=== PATIENT | male | born 1945 | race Caucasian/White ===

== ENCOUNTER 2016-04-20 20:54 | Emergency (ER) | payer OTHER ==
[2016-04-20 21:00] VITALS: BP 207/93; PULSE 65; RESP 20; TEMP 97.2
--- NOTE | 2016-04-20 21:14 | ED ---
Chest Pain HPI - General Chief Complaint: Chest Pain Stated Complaint: Chest Pain/Pt history Time Seen by Provider: 04/20/16 21:00 Source: patient Mode of arrival: ambulatory Limitations: no limitations - History of Present Illness Initial Comments: This is a 71-year-old male with a history of CAD and multiple stents who presents emergency department for burning chest pain. He states it started around 7:30 this evening. He states that typically when he has hiatal hernia pain he is able to push on his stomach and will go away however it did not this time. He decided to take a nitro tablet and it relieved his discomfort. He has no current chest pain. He states that he was concerned because he has a history of NE in the past and this felt similar. He denies any associated shortness of breath, lightheadedness, nausea or vomiting. He states he feels fine now. He does admit to lower chrie swelling however this is chronic for him. No history DVT. No other complaints. - Related Data Home Medications Medication Instructions Recorded Confirmed Aspirin 81 mg PO DAILY 07/03/13 04/20/16 FLUoxetine HCL [PROzac] 20 mg PO DAILY 07/03/13 04/20/16 Labetalol HCl [Trandate] 600 mg PO BID 07/03/13 04/20/16 Ranolazine [Ranexa] 1,000 mg PO BID 07/03/13 04/20/16 Losartan [Cozaar] 100 mg PO HS 12/25/13 04/20/16 QUEtiapine [SEROquel] 25 mg PO HS 12/25/13 04/20/16 Terazosin [Hytrin] 8 mg PO HS 12/25/13 04/20/16 Atorvastatin [Lipitor] 20 mg PO HS 03/11/15 04/20/16 Isosorbide Mononitrate ER [Imdur] 60 mg PO DAILY 03/11/15 04/20/16 Bumetanide [BUMEX] 2 mg PO DAILY 04/20/16 04/20/16 Rivaroxaban [Xarelto] 15 mg PO BID 04/20/16 04/20/16 Previous Rx's Medication Instructions Recorded LORazepam [Ativan] 1 mg PO BID #12 tab 02/12/16 rOPINIRole HCL [Requip] 0.5 mg PO HS #10 tablet 02/12/16 Allergies Allergy/AdvReac Type Severity Reaction Status Date / Time No Known Allergies Allergy Verified 04/20/16 21:51 Review of Systems ROS Statement: Those systems with pertinent positive or pertinent negative responses have been documented in the HPI. ROS Other: All systems not noted in ROS Statement are negative. EKG Findings - EKG Comments: EKG Findings:: EKG showing normal sinus rhythm with a rate of 61, first degree AV block. No ST segment changes or T-wave inversions. QTC is 471. Other intervals are normal. No ectopy. Past Medical History Past Medical History: Atrial Fibrillation, Coronary Artery Disease (CAD), Heart Failure, Hyperlipidemia, Hypertension, Myocardial Infarction ([place]), Osteoarthritis (OA) Additional Past Medical History / Comment(s): ? 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 Last Myocardial Infarction Date:: 2009 History of Any Multi-Drug Resistant Organisms: None Reported Past Surgical History: Heart Catheterization With Stent, Tonsillectomy Additional Past Surgical History / Comment(s): [id number] stents, rt hand sx to repair svered lig/tendons Past Anesthesia/Blood Transfusion Reactions: No Reported Reaction Additional Past Anesthesia/Blood Transfusion Reaction / Comment(s): clausterphobia Date of Last Stent Placement:: 2009 Past Psychological History: Depression Additional Psychological History / Comment(s): PT 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 CURRENTLY ON DISABILTY D/T HIS BACK Smoking Status: Never smoker Past Alcohol Use History: None Reported Past Drug Use History: None Reported - Past Family History Mother Family Medical History: Cancer Additional Family Medical History / Comment(s): breast cancer, heart problems was on warfarin(pt stated she bled out) Father Family Medical History: Coronary Artery Disease (CAD), Myocardial Infarction ([place] ) General Exam - General Exam Comments Initial Comments: Constitutional: Awake alert Appears comfortable Head: Normocephalic atraumatic Eyes: no conjunctival injection No scleral icterus EOMI Neck: No JVD Supple Heart: Regular rate rhythm normal S1-S2 no murmurs Lungs: Clear to auscultation bilaterally No wheezing No rales Abdomen: Soft nondistended nontender Extremities: 2+ edema in bilateral lower extremities DP pulses intact Radial pulses intact Neuro: A&Ox3 No focal neurologic deficits Psych: Appropriate mood and affect Limitations: no limitations Course Vital Signs 04/20/16 20:55 Temperature 97.2 F L Pulse Rate 65 Respiratory 20 Rate Blood Pressure 207/93 O2 Sat by Pulse 98 Oximetry Chest Pain MDM - MDM This is a 8-year-old male who presents emergency department for chest burning that was relieved with nitro. He had no chest pain while in the emergency department. EKG was unremarkable and troponin was negative. The patient stated that he felt completely back to normal. I told the patient that I would recommend that he stay in the hospital for further monitoring and testing however he stated that he would rather go back home. He states he is no longer worried and feels that this was actually his acid reflux and hiatal hernia. He stated that the last time he had a heart attack he had more significant burning and radiation down his left arm which she did not have this time. I told the patient denied could not effectively rule out CAD without further doing testing and possible stress testing however he stated that he wanted to go home. I told that there is risk involved in going home including worsening heart function in if this were in fact signs of heart attack. He stated that he understood the risks and were able to verbalize them back to me. He was of sound mind and sober mind and was able to make his own decisions. 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 Disposition Clinical Impression: Chest pain Disposition: Left Against Medical Advice Condition: Stable Instructions: Chest Pain (ED) Referrals: Ralph Joyner MD [Primary Care Provider] - 1-2 days
[2016-04-20 21:32] LABS: Basophils # (A) 0.1 k/uL (0-0.2); Basophils % (A) 1 %; CH 33.7; CHCM 34.5; Eosinophils # (A) 0.5 k/uL (0-0.7); Eosinophils % (A) 6 %; HCT 35.4 % (39.0-53.0); HDW 2.49; HGB 12.1 gm/dL (13.0-17.5); Luc # (Auto) 0.24; Luc % (Auto) 3; Lymphocytes % (A) 13 %; MCH 33.6 pg (25.0-35.0); MCHC 34.2 g/dL (31.0-37.0); MCV 98.2 fL (80.0-100.0); Monocytes # (A) 0.6 k/uL (0-1.0); Monocytes % (A) 7 %; Neutrophils # (A) 5.5 k/uL (1.3-7.7); Neutrophils % (A) 70 %; RBC 3.61 m/uL (4.30-5.90); RDW 12.9 % (11.5-15.5); WBC (Perox) 8.37
--- NOTE | 2016-04-20 21:34 | XR ---
EXAMINATION TYPE: XR chest 2V DATE OF EXAM: 04/20/2016 9:31 PM HISTORY: Shortness of breath. COMPARISON: None. TECHNIQUE: Single view of the chest is submitted. FINDINGS: Demonstrated are scattered senescent parenchymal change. There is no evidence for focal infiltrate. The heart is enlarged. There is pulmonary venous congestion without overt failure. Hilar and mediastinal structures are within normal limits. Degenerative changes are seen of the dorsal spine. IMPRESSION: 1. The heart is enlarged. There is pulmonary venous congestion without overt failure.
[2016-04-20 21:43] LABS: Calcium 9.2 mg/dL (8.4-10.2); Magnesium 2.2 mg/dL (1.6-2.3); Potassium 4.6 mmol/L (3.5-5.1); Total Bilirubin 0.7 mg/dL (0.2-1.3); Total Protein 7.6 g/dL (6.3-8.2)
[2016-04-20 21:46] LABS: INR 1.2 (<1.1); Prothrombin Time 12.1 sec (9.0-12.0)
[2016-04-20 21:49] LABS: Creatine Kinase 180 U/L (55-170)
[2016-04-20 21:50] LABS: Partial Thromboplastin Time 19.2 sec (22.0-30.0)
[2016-04-20 22:02] LABS: Creatine Kinase MB 1.5 ng/mL (0.0-2.4); Troponin I <0.012 ng/mL (0.000-0.034)
== END 2016-04-20 22:26 | disposition left against medical advice (07) ==
LOC: EC 20:54
DX: R07.9 Chest pain, unspecified (principal); I48.91 Unspecified atrial fibrillation; I25.10 Atherosclerotic heart disease of native coronary artery without angina pectoris; I11.0 Hypertensive heart disease with heart failure; I50.9 Heart failure, unspecified; E78.5 Hyperlipidemia, unspecified; I25.2 Old myocardial infarction; M19.90 Unspecified osteoarthritis, unspecified site; F32.9 Major depressive disorder, single episode, unspecified; Z79.82 Long term (current) use of aspirin; Z79.899 Other long term (current) drug therapy
CPT/HCPCS: 36415; 71020; 80053; 82150; 82550; 82553; 83690; 83735; 84484; 85025; 85610; 85730; 93005; 99285

== ENCOUNTER 2016-12-01 13:30 | Emergency (ER) | payer OTHER ==
--- NOTE | 2016-12-01 14:11 | ED ---
General Adult HPI - General Chief complaint: Extremity Injury, Lower Stated complaint: Knee Pain Time Seen by Provider: 12/01/16 13:46 Source: patient, RN notes reviewed Mode of arrival: wheelchair Limitations: no limitations - History of Present Illness Initial comments: This is a 71-year-old male who presents to the emergency department with chief complaint of right knee pain. Patient states that he has been experiencing this pain for approximately 3 weeks. He denies any specific injury or trauma. He reports that the pain is at the medial aspect of his right knee. He states that over the course of time, the pain has been worsening. Currently rates pain as 10/10. He characterizes the pain as a constant throbbing. He states that he is usually able to ambulate with a walker but over the last couple of days pain with weight-bearing is severe. He reports that he is only able to get 2-3 hours of sleep per night. He states that he sees his doctor at the [facility] in [place] on December 07 and would like to have a prescription for pain medication until he is able to see his family doctor. Denies fever, chills, chest pain, shortness of breath, abdominal pain, nausea or vomiting, constipation or diarrhea, dysuria or hematuria, numbness or tingling, headache or vision changes. - Related Data Home Medications Medication Instructions Recorded Confirmed Aspirin 81 mg PO DAILY 07/03/13 12/01/16 FLUoxetine HCL [PROzac] 20 mg PO DAILY 07/03/13 12/01/16 Labetalol HCl [Trandate] 600 mg PO BID 07/03/13 12/01/16 Ranolazine [Ranexa] 1,000 mg PO BID 07/03/13 12/01/16 Losartan [Cozaar] 100 mg PO HS 12/25/13 12/01/16 QUEtiapine [SEROquel] 25 mg PO HS 12/25/13 12/01/16 Terazosin [Hytrin] 8 mg PO HS 12/25/13 12/01/16 Atorvastatin [Lipitor] 20 mg PO HS 03/11/15 12/01/16 Isosorbide Mononitrate ER [Imdur] 60 mg PO DAILY 03/11/15 12/01/16 Bumetanide [BUMEX] 2 mg PO DAILY 04/20/16 12/01/16 Rivaroxaban [Xarelto] 15 mg PO BID 04/20/16 12/01/16 Previous Rx's Medication Instructions Recorded LORazepam [Ativan] 1 mg PO BID #12 tab 02/12/16 rOPINIRole HCL [Requip] 0.5 mg PO HS #10 tablet 02/12/16 HYDROcodone/APAP 5-325MG [[place] 1 tab PO Q6HR PRN #24 tab 12/01/16 5-325] Allergies Allergy/AdvReac Type Severity Reaction Status Date / Time No Known Allergies Allergy Verified 12/01/16 13:45 Review of Systems ROS Statement: Those systems with pertinent positive or pertinent negative responses have been documented in the HPI. ROS Other: All systems not noted in ROS Statement are negative. Past Medical History Past Medical History: Atrial Fibrillation, Coronary Artery Disease (CAD), Heart Failure, Hyperlipidemia, Hypertension, Myocardial Infarction ([place]), Osteoarthritis ([place]) Additional Past Medical History / Comment(s): ? 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 Last Myocardial Infarction Date:: 2009 History of Any Multi-Drug Resistant Organisms: None Reported Past Surgical History: Heart Catheterization With Stent, Tonsillectomy Additional Past Surgical History / Comment(s): [id number] stents, rt hand sx to repair svered lig/tendons Past Anesthesia/Blood Transfusion Reactions: No Reported Reaction Additional Past Anesthesia/Blood Transfusion Reaction / Comment(s): clausterphobia Date of Last Stent Placement:: 2009 Past Psychological History: Depression Smoking Status: Never smoker Past Alcohol Use History: None Reported Past Drug Use History: None Reported - Past Family History Mother Family Medical History: Cancer Additional Family Medical History / Comment(s): breast cancer, heart problems was on warfarin(pt stated she bled out) Father Family Medical History: Coronary Artery Disease (CAD), Myocardial Infarction ([place] ) General Exam - General Exam Comments Initial Comments: General: Awake and alert, well-developed; in no apparent distress. HEENT: Head atraumatic, normocephalic. Pupils are equal, round and reactive to light. Extraocular movements intact. Neck: Supple. Normal ROM. Cardiovascular: Regular rate and rhythm. No murmurs, rubs or gallops. Chest symmetrical. Respiratory: Lungs clear to auscultation bilaterally. No wheezes, rales or rhonchi. Normal respiratory effort with no use of accessory muscles. Musculoskeletal: Right knee is tender at the medial aspect along the joint line. No redness, swelling or joint effusion is noted. Active and passive range of motion are intact. There is increasing pain with extension of the knee. Pedal pulses 2+ equal and palpable bilaterally. Skin: [place], warm and dry. Multiple healing erythematous sores on right lower extremity superior to ankle. Hyperpigemented and dry/scaling skin on bilateral lower extremities. Neurological: Alert and oriented x3. CN II-XII grossly intact. Speech is fluent and answers are appropriate. No focal neuro deficits. Psychiatric: Normal mood and affect. No overt signs of depression or anxiety noted. Limitations: no limitations Course Vital Signs 12/01/16 13:42 Temperature 98.2 F Pulse Rate 68 Respiratory 18 Rate Blood Pressure 168/74 O2 Sat by Pulse 96 Oximetry Medical Decision Making - Medical Decision Making X-ray of the right knee revealed: At least moderate patellofemoral compartmental osteoarthrosis. No acute osseous susceptibility seen. This case was discussed with attending physician, Dr. Weeks. He will be discharged home with a prescription for Lawrence to be taken for pain until he follows up with his doctor on December 07. Patient is in no acute distress at this time and he agrees with the plan. All questions were answered. - Radiology Data Radiology results: report reviewed Findings: There is at least moderate degenerative change at the patellofemoral compartment with marginal spurring and subchondral cystic change along the patellar side. No significant knee joint effusion seen. No acute fracture, subluxation, or dislocation. Disposition Clinical Impression: Arthritis of right knee, Acute knee pain Disposition: HOME SELF-CARE Condition: Good Instructions: Knee Pain (ED) Additional Instructions: Please take medications as prescribed. Please follow up with primary care provider within 1-2 days. Return to emergency department if symptoms should worsen or any concerns arise. Prescriptions: HYDROcodone/APAP 5-325MG [Lawrence 5-325] 1 tab PO Q6HR PRN #24 tab PRN Reason: Pain Referrals: None,Stated [REFERRING] - 1-2 days Time of Disposition: 15:03
--- NOTE | 2016-12-01 14:28 | XR ---
EXAMINATION TYPE: XR knee complete RT DATE OF EXAM: 12/01/2016 COMPARISON: NONE HISTORY: 71 year-old male right knee pain TECHNIQUE: 3 views FINDINGS: There is at least moderate degenerative change at the patellofemoral compartment with marginal spurri ng and subchondral cystic change along the patellar side. No significant knee joint effusion seen. No acute fracture, subluxation, or dislocation. IMPRESSION: At least moderate patellofemoral compartmental osteoarthrosis. No acute osseous susceptibility seen.
[2016-12-01 15:08] VITALS: BP 165/78; PULSE 63; RESP 20; TEMP 98
== END 2016-12-01 15:07 | disposition home or self-care (01) ==
LOC: EC 13:30
DX: M17.11 Unilateral primary osteoarthritis, right knee (principal); I48.91 Unspecified atrial fibrillation; I25.10 Atherosclerotic heart disease of native coronary artery without angina pectoris; I11.0 Hypertensive heart disease with heart failure; I50.9 Heart failure, unspecified; I25.2 Old myocardial infarction; E78.5 Hyperlipidemia, unspecified; F32.9 Major depressive disorder, single episode, unspecified; Z79.82 Long term (current) use of aspirin; Z79.899 Other long term (current) drug therapy
CPT/HCPCS: 99283

== ENCOUNTER 2016-12-25 16:53 | Inpatient (IN) | payer MEDICARE, OTHER ==
[2016-12-25] MEDS ORDERED: SODIUM CHLORIDE 0.9% 1,000 ML IV STA ×2 (17:00)
--- NOTE | 2016-12-25 17:05 | ED ---
General Adult HPI - General Chief complaint: Fall Stated complaint: weakness Time Seen by Provider: 12/25/16 16:53 Source: patient, EMS, RN notes reviewed Mode of arrival: EMS Limitations: no limitations - History of Present Illness Initial comments: this is a 71-year-old male with a history of multiple medical issues who came in by EMS today because he fell earlier today. He states he was walking in the bathroom. Progressively weaker his legs gave out he fell onto his buttock. He denies any head neck or back pain any buttock pain has chronic pain to his knees and ankles bilaterally nothing new here however. No fevers chills sweats headache loss of function to his upper or lower extremities. He is on blood thinners but has no head injury. He does state he has a history of gout. - Related Data Home Medications Medication Instructions Recorded Confirmed Aspirin 81 mg PO DAILY 07/03/13 12/25/16 FLUoxetine HCL [PROzac] 20 mg PO DAILY 07/03/13 12/25/16 Labetalol HCl [Trandate] 600 mg PO BID 07/03/13 12/25/16 Ranolazine [Ranexa] 500 mg PO BID 07/03/13 12/25/16 QUEtiapine [SEROquel] 25 mg PO HS 12/25/13 12/25/16 Terazosin [Hytrin] 8 mg PO HS 12/25/13 12/25/16 Isosorbide Mononitrate ER [Imdur] 60 mg PO DAILY 03/11/15 12/25/16 Bumetanide [BUMEX] 4 mg PO DAILY 04/20/16 12/25/16 Rivaroxaban [Xarelto] 15 mg PO HS 04/20/16 12/25/16 Atorvastatin [Lipitor] 20 mg PO DAILY 12/25/16 12/25/16 LORazepam [Ativan] 1.5 mg PO BID 12/25/16 12/25/16 Losartan Potassium [Cozaar] 100 mg PO DAILY 12/25/16 12/25/16 Nitroglycerin Sl Tabs [Nitrostat] 0.4 mg SUBLINGUAL Q5M PRN 12/25/16 12/25/16 oxyCODONE HCL [Roxicodone] 5 mg PO BID 12/25/16 12/25/16 rOPINIRole HCL [Requip] 0.5 mg PO BID 12/25/16 12/25/16 Allergies Allergy/AdvReac Type Severity Reaction Status Date / Time amlodipine AdvReac CONSTIPATIO Verified 12/25/16 17:33 N atenolol AdvReac MALE ED Verified 12/25/16 17:33 hydrochlorothiazide AdvReac RENAL Verified 12/25/16 17:33 IMPAIRMENT pravastatin AdvReac Rash/Hives Verified 12/25/16 17:33 Review of Systems ROS Statement: Those systems with pertinent positive or pertinent negative responses have been documented in the HPI. ROS Other: All systems not noted in ROS Statement are negative. Past Medical History Past Medical History: Atrial Fibrillation, Coronary Artery Disease (CAD), Heart Failure, Hyperlipidemia, Hypertension, Myocardial Infarction ([place]), Osteoarthritis (OA) Additional Past Medical History / Comment(s): ? 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 Last Myocardial Infarction Date:: 2009 History of Any Multi-Drug Resistant Organisms: None Reported Past Surgical History: Heart Catheterization With Stent, Tonsillectomy Additional Past Surgical History / Comment(s): [id number] stents, rt hand sx to repair svered lig/tendons Past Anesthesia/Blood Transfusion Reactions: No Reported Reaction Additional Past Anesthesia/Blood Transfusion Reaction / Comment(s): clausterphobia Date of Last Stent Placement:: 2009 Past Psychological History: Depression Smoking Status: Never smoker Past Alcohol Use History: None Reported Past Drug Use History: None Reported - Past Family History Mother Family Medical History: Cancer Additional Family Medical History / Comment(s): breast cancer, heart problems was on warfarin(pt stated she bled out) Father Family Medical History: Coronary Artery Disease (CAD), Myocardial Infarction ([place] ) General Exam - General Exam Comments Initial Comments: this is a well-developed well-nourished awake alert oriented 3 male he demonstrates a [place] Coma Scale of 15 Limitations: no limitations General appearance: alert, in no apparent distress Head exam: Present: atraumatic, normocephalic, normal inspection Eye exam: Present: normal appearance, PERRL, EOMI. Absent: scleral icterus, conjunctival injection, periorbital swelling ENT exam: Present: mucous membranes dry Neck exam: Present: normal inspection. Absent: tenderness, meningismus, lymphadenopathy Respiratory exam: Present: normal lung sounds bilaterally. Absent: respiratory distress, wheezes, rales, rhonchi, stridor Cardiovascular Exam: Present: regular rate, normal rhythm, normal heart sounds. Absent: systolic murmur, diastolic murmur, rubs, gallop, clicks GI/Abdominal exam: Present: soft, normal bowel sounds. Absent: distended, tenderness, guarding, rebound, rigid Extremities exam: Present: full ROM, normal capillary refill, other (some stasis dermatitis no his no obvious deformity no increased localized temperature no effusions noted to the ankles or knees. There is tenderness palpation of the right first MTP also there is an abrasion that is healing with some localized increased temperature to the right anterior leg..). Absent: tenderness, pedal edema, joint swelling, calf tenderness Back exam: Present: normal inspection Neurological exam: Present: alert, oriented X3, CN II-XII intact Psychiatric exam: Present: normal affect, normal mood Skin exam: Present: warm, dry, intact, normal color. Absent: rash Course Vital Signs 12/25/16 12/25/16 12/25/16 16:55 18:01 18:33 Temperature 97.5 F L Pulse Rate 59 L 65 71 Respiratory 18 17 Rate Blood Pressure 144/62 158/68 163/72 O2 Sat by Pulse 95 95 94 L Oximetry EKG Findings - EKG Results: EKG: interpreted by SLAVA, sinus rhythm (Sinus rhythm first-degree AV block rate is 60. Interval to 92 QRS 94 QT since QTC of 484/[address] configuration.) Medical Decision Making - Medical Decision Making I did a long discussion with the patient family regarding findings patient is unable to ambulate. He does have some evidence of exacerbation of gout as well as cellulitis of the right lower extremity is chronic renal insufficiency with some evidence of dehydration. - Lab Data Result diagrams: 12/25/16 17:14 12/25/16 17:14 Lab Results 12/25/16 12/25/16 12/25/16 Range/Units 17:14 17:14 17:14 WBC 11.3 H (3.8-10.6) k/uL RBC 3.31 L (4.30-5.90) m/uL Hgb 10.6 L (13.0-17.5) gm/dL Hct 31.8 L (39.0-53.0) % MCV 95.9 (80.0-100.0) fL MCH 32.1 (25.0-35.0) pg MCHC 33.5 (31.0-37.0) g/dL RDW 12.7 (11.5-15.5) % Plt Count 319 (150-450) k/uL Neutrophils % 79 % Lymphocytes % 9 % Monocytes % 9 % Eosinophils % 1 % Basophils % 0 % Neutrophils # 8.9 H (1.3-7.7) k/uL Lymphocytes # 1.0 (1.0-4.8) k/uL Monocytes # 1.1 H (0-1.0) k/uL Eosinophils # 0.1 (0-0.7) k/uL Basophils # 0.0 (0-0.2) k/uL PT 14.8 H (9.0-12.0) sec INR 1.5 H (<1.2) APTT 29.3 (22.0-30.0) sec Sodium (137-145) mmol/L Potassium (3.5-5.1) mmol/L Chloride (98-107) mmol/L Carbon Dioxide (22-30) mmol/L Anion Gap mmol/L BUN (9-20) mg/dL Creatinine (0.66-1.25) mg/dL Est GFR (MDRD) Af Amer (>60 ml/min/1.73 sqM) Est GFR (MDRD) Non-Af (>60 ml/min/1.73 sqM) Glucose (74-99) mg/dL Uric Acid (3.5-8.5) mg/dL Calcium (8.4-10.2) mg/dL Magnesium (1.6-2.3) mg/dL Total Bilirubin (0.2-1.3) mg/dL AST (17-59) U/L ALT (21-72) U/L Alkaline Phosphatase (38-126) U/L Total Creatine Kinase 82 (55-170) U/L CK-MB (CK-2) 0.3 (0.0-2.4) ng/mL CK-MB (CK-2) Rel Index 0.4 Total Protein (6.3-8.2) g/dL Albumin (3.5-5.0) g/dL Urine Color Urine Appearance (Clear) Urine pH (5.0-8.0) Ur Specific [place] (1.001-1.035) Urine Protein (Negative) Urine Glucose (UA) (Negative) Urine Ketones (Negative) Urine Blood (Negative) Urine Nitrite (Negative) Urine Bilirubin (Negative) Urine Urobilinogen (<2.0) mg/dL Ur Leukocyte Esterase (Negative) 12/25/16 12/25/16 Range/Units 17:14 17:30 WBC (3.8-10.6) k/uL RBC (4.30-5.90) m/uL Hgb (13.0-17.5) gm/dL Hct (39.0-53.0) % MCV (80.0-100.0) fL MCH (25.0-35.0) pg MCHC (31.0-37.0) g/dL RDW (11.5-15.5) % Plt Count (150-450) k/uL Neutrophils % % Lymphocytes % % Monocytes % % Eosinophils % % Basophils % % Neutrophils # (1.3-7.7) k/uL Lymphocytes # (1.0-4.8) k/uL Monocytes # (0-1.0) k/uL Eosinophils # (0-0.7) k/uL Basophils # (0-0.2) k/uL PT (9.0-12.0) sec INR (<1.2) APTT (22.0-30.0) sec Sodium 138 (137-145) mmol/L Potassium 4.2 (3.5-5.1) mmol/L Chloride 99 (98-107) mmol/L Carbon Dioxide 27 (22-30) mmol/L Anion Gap 12 mmol/L BUN 50 H (9-20) mg/dL Creatinine 2.89 H (0.66-1.25) mg/dL Est GFR (MDRD) Af Amer 26 (>60 ml/min/1.73 sqM) Est GFR (MDRD) Non-Af 22 (>60 ml/min/1.73 sqM) Glucose 119 H (74-99) mg/dL Uric Acid 11.7 H (3.5-8.5) mg/dL Calcium 9.3 (8.4-10.2) mg/dL Magnesium 2.4 H (1.6-2.3) mg/dL Total Bilirubin 1.1 (0.2-1.3) mg/dL AST 15 L (17-59) U/L ALT 19 L (21-72) U/L Alkaline Phosphatase 93 (38-126) U/L Total Creatine Kinase (55-170) U/L CK-MB (CK-2) (0.0-2.4) ng/mL CK-MB (CK-2) Rel Index Total Protein 6.9 (6.3-8.2) g/dL Albumin 3.9 (3.5-5.0) g/dL Urine Color Yellow Urine Appearance Clear (Clear) Urine pH 5.5 (5.0-8.0) Ur Specific [place] 1.012 (1.001-1.035) Urine Protein Trace H (Negative) Urine Glucose (UA) Negative (Negative) Urine Ketones Negative (Negative) Urine Blood Negative (Negative) Urine Nitrite Negative (Negative) Urine Bilirubin Negative (Negative) Urine Urobilinogen <2.0 (<2.0) mg/dL Ur Leukocyte Esterase Negative (Negative) - Radiology Data Radiology results: report reviewed (I did review the imaging and reports no acute findings), image reviewed Disposition Clinical Impression: Fall, Cellulitis of right lower extremity, Gout attack, Chronic renal insufficiency, Failure to thrive Disposition: ADMITTED IP TO THIS [facility] Condition: Stable Referrals: Jerod Braun MD [Primary Care Provider] - 1-2 days
[2016-12-25 17:22] LABS: Basophils % (A) 0 %; CH 32.8; CHCM 34.3; Eosinophils # (A) 0.1 k/uL (0-0.7); Eosinophils % (A) 1 %; HCT 31.8 % (39.0-53.0); HDW 2.42; HGB 10.6 gm/dL (13.0-17.5); Luc # (Auto) 0.19; Luc % (Auto) 2; Lymphocytes % (A) 9 %; MCH 32.1 pg (25.0-35.0); MCHC 33.5 g/dL (31.0-37.0); MCV 95.9 fL (80.0-100.0); Mean Platelet Volume 7.1; Monocytes # (A) 1.1 k/uL (0-1.0); Monocytes % (A) 9 %; Neutrophils # (A) 8.9 k/uL (1.3-7.7); Neutrophils % (A) 79 %; RBC 3.31 m/uL (4.30-5.90); RDW 12.7 % (11.5-15.5); WBC 11.3 k/uL (3.8-10.6)
[2016-12-25 17:31] LABS: INR 1.5 (<1.2); Partial Thromboplastin Time 29.3 sec (22.0-30.0); Prothrombin Time 14.8 sec (9.0-12.0)
[2016-12-25 17:52] LABS: Creatine Kinase MB 0.3 ng/mL (0.0-2.4)
[2016-12-25 17:55] LABS: Appearance,Urine Clear (Clear); Bilirubin,Urine Negative (Negative); Glucose,Urine (UA) Negative (Negative); Ketones,Urine Negative (Negative); Leukocyte Esterase,Urine Negative (Negative); Nitrite,Urine Negative (Negative); PH, Urine 5.5 (5.0-8.0); Protein,Urine Trace (Negative); Specific Gravity,Urine 1.012 (1.001-1.035); UA Billing (MACRO vs. MICRO) CHEM; Urobilinogen,Urine <2.0 mg/dL (<2.0)
[2016-12-25 17:56] LABS: Calcium 9.3 mg/dL (8.4-10.2); Magnesium 2.4 mg/dL (1.6-2.3); Potassium 4.2 mmol/L (3.5-5.1); Total Bilirubin 1.1 mg/dL (0.2-1.3); Total Protein 6.9 g/dL (6.3-8.2); Uric Acid 11.7 mg/dL (3.5-8.5)
--- NOTE | 2016-12-25 18:02 | XR ---
EXAMINATION TYPE: XR chest 2V DATE OF EXAM: 12/25/2016 COMPARISON: 04/20/2016 HISTORY: Leg swelling TECHNIQUE: Frontal and lateral views of the chest are obtained. FINDINGS: There is no heart failure nor confluent pneumonic infiltrate. Costophrenic angles are alejandra r. Bony thorax appears intact. Heart appears enlarged. There is coarsening of interstitial markings. IMPRESSION: Cardiomegaly. Mild pulmonary fibrotic changes. No acute lung disease. No change.
[2016-12-25] MEDS ORDERED: MAG HYDROX/AL HYDROX/SIMETH 30 ML CUP PO ONE (18:33)
[2016-12-25] MEDS ORDERED: NALOXONE 0.4 MG/ML 1 ML VIAL IV PRN (19:20)
[2016-12-25] MEDS ORDERED: IBUPROFEN 400 MG TAB PO PRN (19:20)
[2016-12-25] MEDS ORDERED: PIPERACILLIN-TAZOBACTAM 3.375 GM in DEXTROSE/WATER 1 50ML.BAG IVPB STA (19:24)
[2016-12-25] MEDS ORDERED: TERAZOSIN 1 MG CAP PO SCH (21:00)
[2016-12-25] MEDS: MORPHINE SULFATE 10 MG/ML SYRINGE IVP PRN (21:26)
[2016-12-25] MEDS: RIVAROXABAN 15 MG TAB PO SCH (21:28)
[2016-12-25] MEDS: LABETALOL 200 MG TAB PO SCH (21:28)
[2016-12-25] MEDS: DOXAZOSIN 4 MG TAB PO SCH (21:28)
[2016-12-25] MEDS: RANOLAZINE 500 MG TAB.ER.12H PO SCH (21:28)
[2016-12-25] MEDS: QUEtiapine 25 MG TAB PO SCH (21:28)
[2016-12-25] MEDS: LORazepam 1 MG TAB PO SCH (22:58)
[2016-12-26] MEDS: PIPERACILLIN-TAZOBACTAM 3.375 GM in DEXTROSE/WATER 1 50ML.BAG IVPB SCH ×5 (04:12→23:26)
[2016-12-26] MEDS: MORPHINE SULFATE 10 MG/ML SYRINGE IVP PRN ×2 (06:13→12:40)
[2016-12-26] MEDS: ASPIRIN 81 MG PO SCH (08:57)
[2016-12-26] MEDS: FLUoxetine HCL 20 MG CAP PO SCH (08:57)
[2016-12-26] MEDS: ISOSORBIDE MONONITRATE ER 60 MG TAB.ER.24H PO SCH (08:57)
[2016-12-26] MEDS: BUMETANIDE 1 MG TAB PO SCH (08:57)
[2016-12-26] MEDS: ATORVASTATIN 20 MG TAB PO SCH (08:57)
[2016-12-26] MEDS: LABETALOL 200 MG TAB PO SCH ×2 (08:58→22:02)
[2016-12-26] MEDS: LOSARTAN 50 MG TAB PO SCH (08:58)
[2016-12-26] MEDS: LORazepam 1 MG TAB PO SCH ×2 (08:58→22:01)
[2016-12-26] MEDS: RANOLAZINE 500 MG TAB.ER.12H PO SCH ×2 (08:59→21:56)
--- NOTE | 2016-12-26 18:55 | P.HPIM ---
History of Present Illness H&P Date: 12/26/16 Chief Complaint: Lower extremity pain and weakness This is a 71-year-old morbidly obese gentleman who presented to emergency room with chief complaint of bilateral knee pain right greater than left patient status complaints have been going on for the past 3 weeks and progressively getting worse patient does not recall any trauma or fall preceding his pain patient stated progressively got weaker with an attain same times and and ultimately since sustaining a fall landing on his buttocks and the denied hitting his head or neck he did not have any fevers or chills pain is rated 10 out of 10 intensity characterized as consistent throbbing radiating up his thighs extremity tender to the touch prior to interview patient had received IV pain medication and will seem to be lethargic and drowsy during encounter. Patient stated that he does have a history of gout in which usually affects his toes on bilateral but never his knees patient does have a history of chronic disease does see a creative producer at the [facility] stated that his baseline renal function was told to be 1.75 he has not followed up with his creative producer for quite some time to the ER she had temperature 97.5 pulse 50, respiration 18 blood pressure 144/62 O2 sats 95% on room air EKG done showed sinus rhythm with first-degree AV block nonspecific ST changes patient was admitted to the [facility] surge unit for ongoing workup Review of Systems Constitutional: Reports as per HPI, Reports chronic pain, Reports fatigue, Reports weakness, Reports weight gain Eyes: denies blurred vision, denies pain Ears, nose, mouth and throat: Denies headache, Denies sore throat Cardiovascular: Reports decreased exercise tolerance, Reports edema, Reports high blood pressure, Denies chest pain, Denies dyspnea on exertion, Denies lightheadedness, Denies palpitations, Denies paroxysmal nocturnal dyspnea Respiratory: Reports as per HPI, Reports sleep apnea, Denies cough with sputum, Denies hemoptysis, Denies home oxygen, Denies pain, Denies pain on inspiration, Denies pleurisy, Denies respiratory infections Gastrointestinal: Denies abdominal pain, Denies diarrhea, Denies nausea, Denies vomiting Musculoskeletal: Reports frequent falls, Reports gait dysfunction, Reports leg numbness/tingling, Reports muscle weakness, Reports redness of joints, Reports shooting leg pain Musculoskeletal: bilateral: knee pain, knee stiffness, knee swelling, absent: ankle pain, ankle stiffness, hip pain, hip stiffness, hip swelling Integumentary: Denies pruritus, Denies rash Neurological: Denies numbness, Denies weakness Past Medical History Past Medical History: Atrial Fibrillation, Coronary Artery Disease (CAD), Heart Failure, Hyperlipidemia, Hypertension, Myocardial Infarction ([place]) Additional Past Medical History / Comment(s): ? 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 gout in past. 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 CURRENTLY ON DISABILTY D/T HIS BACK Smoking Status: Never smoker Past Alcohol Use History: None Reported Past Drug Use History: None Reported - Past Family History Mother Family Medical History: Cancer Additional Family Medical History / Comment(s): breast cancer, heart problems was on warfarin(pt stated she bled out) Father Family Medical History: Coronary Artery Disease (CAD), Myocardial Infarction ([place] ) Medications and Allergies Home Medications Medication Instructions Recorded Confirmed Type Aspirin 81 mg PO DAILY 07/03/13 12/25/16 History FLUoxetine HCL [PROzac] 20 mg PO DAILY 07/03/13 12/25/16 History Labetalol HCl [Trandate] 600 mg PO BID 07/03/13 12/25/16 History Ranolazine [Ranexa] 1,000 mg PO BID 07/03/13 12/25/16 History QUEtiapine [SEROquel] 25 mg PO HS 12/25/13 12/25/16 History Terazosin [Hytrin] 8 mg PO HS 12/25/13 12/25/16 History Isosorbide Mononitrate ER [Imdur] 60 mg PO DAILY 03/11/15 12/25/16 History Bumetanide [BUMEX] 4 mg PO DAILY 04/20/16 12/25/16 History Rivaroxaban [Xarelto] 15 mg PO HS 04/20/16 12/25/16 History Atorvastatin [Lipitor] 20 mg PO DAILY 12/25/16 12/25/16 History LORazepam [Ativan] 1 mg PO TID PRN 12/25/16 12/25/16 History Losartan Potassium [Cozaar] 100 mg PO DAILY 12/25/16 12/25/16 History Nitroglycerin Sl Tabs [Nitrostat] 0.4 mg SUBLINGUAL Q5M PRN 12/25/16 12/25/16 History Omeprazole 20 mg PO DAILY 12/25/16 12/25/16 History oxyCODONE HCL [Roxicodone] 5 mg PO BID PRN 12/25/16 12/25/16 History rOPINIRole HCL [Requip] 0.5 mg PO TID 12/25/16 12/25/16 History traZODone HCL 100 mg PO HS PRN 12/25/16 12/25/16 History Allergies Allergy/AdvReac Type Severity Reaction Status Date / Time amlodipine AdvReac CONSTIPATIO Verified 12/25/16 17:33 N atenolol AdvReac MALE ED Verified 12/25/16 17:33 hydrochlorothiazide AdvReac RENAL Verified 12/25/16 17:33 IMPAIRMENT pravastatin AdvReac Rash/Hives Verified 12/25/16 17:33 Physical Exam Vitals: Vital Signs Temp Pulse Pulse Resp BP BP Pulse Ox 12/26/16 15:00 98.2 F 72 16 110/52 93 L 12/26/16 07:59 100.6 F H 62 20 147/59 91 L 12/26/16 04:00 16 12/26/16 00:00 16 12/25/16 23:53 98.2 F 58 L 16 182/78 92 L 12/25/16 20:32 19 182/72 93 L 12/25/16 20:30 18 12/25/16 20:03 60 16 164/69 94 L Intake and Output 12/26/16 12/26/16 12/26/16 06:59 14:59 22:59 Intake Total 590 Output Total 700 480 Balance -110 -480 Intake: Oral 590 Output: Urine 700 480 Other: Voiding Method Urinal Urinal Urinal # Voids 1 Weight 132 kg General appearance: alert and awake however drowsy secondary to pain medication , in no apparent distress nontoxic-appearing Head exam: Present: atraumatic, normocephalic, normal inspection Eye exam: , PERRL, EOMI. Absent: scleral icterus, conjunctival injection, periorbital swelling ENT exam:: mucous membranes dry free of any lesions Neck exam: Patient has bilateral supraclavicular fullness. Absent: tenderness, meningismus, lymphadenopathy Respiratory exam: Present: normal lung sounds bilaterally. Absent: respiratory distress, wheezes, rales, rhonchi, stridor Cardiovascular Exam: Present: regular rate, normal rhythm, normal heart sounds. Absent: systolic murmur, diastolic murmur, rubs, gallop, clicks GI/Abdominal exam: Present: soft, normal bowel sounds. Absent: distended, tenderness, guarding, rebound, rigid Extremities exam: Present: full ROM, normal capillary refill, stasis dermatitis by lower lower extremity no his no obvious deformity no increased localized temperature no effusions noted to the ankles or knees is extreme tenderness to bilateral knees in the medial aspect flexion of the knee reproduces significant pain. There is tenderness palpation of the right first MTP also there is an abrasion that is healing with some localized increased temperature to the right anterior leg. Back exam: Present: normal inspection Neurological exam: Present: alert, oriented X3, CN II-XII intact Psychiatric exam: Present: normal affect, normal mood Skin exam: Present: warm, dry, intact, normal color. Absent: rash Results CBC & Chem 7: 12/25/16 17:14 12/25/16 17:14 Chest x-ray: pending, report reviewed Thrombosis Risk Factor Assmnt - Choose All That Apply Any of the Below Risk Factors Present?: Yes Each Factor Represents 1 point: Acute OR, Heart failure (<1month), Obesity (BMI >25) Other Risk Factors: Yes Each Risk Factor Represents 2 Points: Age 61-74 years Other congenital or acquired thrombophilia - If yes, enter type in comment: No Thrombosis Risk Factor Assessment Total Risk Factor Score: 5 Thrombosis Risk Factor Assessment Level: High Risk Assessment and Plan Assessment: #1 severe bilateral lower extremity pain with weakness, patient does have a history of gout his uric acid was noted to be elevated on labs could very well be an acute gouty attack however is relatively in bilateral knees on examination there is effusion that was noted we'll consult orthopedic surgery for possible knee aspiration both therapeutic and diagnostic purposes patient is noted to be on Xarelto will obtain bilateral knee x-rays patient will also need physical and occupational therapy consults for eval #2 uricacidemia patient is noted to be on allopurinol is to continue he does have underlying A And CK D we'll consult nephrology to help assist in medication management. We'll need to sit with NSAIDs at this time possibly use a course of steroids . #3 history of fibrillation with a chest greater than 2 patient is not an anticoagulation next line #4 Chronic pain. #5 hypertension #6 acute kidney injury on chronic kidney disease unknown GFR patient had a creatinine of 1.77 back on February 2015 patient's creatinine on this admission is 2.89 this is likely due to combination of progressive renal disease along with dehydration nephrology to be consulted For the above noted conditions please resume home medications hold Bumex due to underlying kidney injury Morbid obesity patient counseled on lifestyle[ modifications and proper eating habits Further recommendations follow-up in his overall progress. Disposition anticipate discharge in the next 24-48 hours Time with Patient: Greater than 30
[2016-12-26] MEDS ORDERED: BISACODYL 10 MG SUPP RECTAL SCH (19:30)
[2016-12-26] MEDS ORDERED: BISACODYL 10 MG SUPP RECTAL ONE (19:54)
[2016-12-26] MEDS ORDERED: FUROSEMIDE 10 MG/ML 4 ML VIAL IV STA (20:04)
[2016-12-26] MEDS: PANTOPRAZOLE 40 MG/10 ML VIAL IVP SCH (20:41)
[2016-12-26] MEDS: QUEtiapine 25 MG TAB PO SCH (21:57)
[2016-12-26] MEDS: RIVAROXABAN 15 MG TAB PO SCH (21:57)
[2016-12-26] MEDS: DOXAZOSIN 4 MG TAB PO SCH (22:07)
[2016-12-27] MEDS: MORPHINE SULFATE 10 MG/ML SYRINGE IVP PRN ×5 (04:13→14:00)
[2016-12-27] MEDS: NITROGLYCERIN SL TABS 0.4 MG TAB SUBLINGUAL PRN ×2 (06:15→06:26)
[2016-12-27 06:55] LABS: CH 32.7; CHCM 33.3; HCT 30.3 % (39.0-53.0); HGB 9.7 gm/dL (13.0-17.5); MCH 31.6 pg (25.0-35.0); MCV 98.6 fL (80.0-100.0); Mean Platelet Volume 7.3; RBC 3.07 m/uL (4.30-5.90); RDW 12.7 % (11.5-15.5); WBC 10.1 k/uL (3.8-10.6)
[2016-12-27 07:23] LABS: Calcium 8.7 mg/dL (8.4-10.2); Magnesium 2.2 mg/dL (1.6-2.3); Phosphorus 4.1 mg/dL (2.5-4.5); Potassium 4.2 mmol/L (3.5-5.1); Total Bilirubin 1.9 mg/dL (0.2-1.3); Total Protein 6.1 g/dL (6.3-8.2)
[2016-12-27 07:34] LABS: Creatine Kinase MB 19.4 ng/mL (0.0-2.4); Troponin I 0.053 ng/mL (0.000-0.034)
[2016-12-27] MEDS: PIPERACILLIN-TAZOBACTAM 3.375 GM in DEXTROSE/WATER 1 50ML.BAG IVPB SCH ×3 (08:00→23:36)
--- NOTE | 2016-12-27 08:07 | XR ---
EXAMINATION TYPE: XR knee limited bilateral DATE OF EXAM: 12/26/2016 CLINICAL HISTORY: pain TECHNIQUE: Three views of the right knee are obtained. COMPARISON: 12/01/2016 FINDINGS: There is no acute fracture/dislocation. Patellofemoral joint space narrowing with changes of chondromalacia patella. Superior patellar spurring. Mild joint space narrowing medial tibiofemoral joint space. Small to moderate joint effusion seen. The overlying soft tissue appears unremarkable. IMPRESSION: There is no acute fracture or dislocation.ICD 10 NO FRACTURE, INITIAL EVALUATION EXAMINATION TYPE: XR knee limited bilateral DATE OF EXAM: 12/26/2016 CLINICAL HISTORY: pain TECHNIQUE: Three views of the left knee are obtained. COMPARISON: 12/01/2016 FINDINGS: There is no acute fracture/dislocation. Patellofemoral joint space narrowing with changes of chondromalacia patella. Superior patellar spurring. Erosive change superior patellar pole. Mild kymberly int space narrowing medial tibiofemoral joint space. Small to moderate joint effusion noted. The over lying soft tissue appears unremarkable. IMPRESSION: There is no acute fracture or dislocation ICD 10 NO FRACTURE, INITIAL EVALUATION
[2016-12-27 08:38] LABS: Erythrocyte Sedimentation Rate 116 mm/hr (0-15)
--- NOTE | 2016-12-27 09:11 | P.CNOR ---
History of Present Illness - HPI Consult date: 12/27/16 History of present illness: This is a 71-year-old male who is admitted for right lower extremity pain. Orthopedics consulted for surgical evaluation. Patient is seen and evaluated at bedside with Dr. Dioni Pereira. Patient states he has had chronic wounds to the right lower extremity since July. Patient states they have come and gone over the last couple of months. states the patient was prescribed outpatient antibiotics but the patient did not take these. Patient states he is feeling much better today. Patient denies any fever/chills, numbness, weakness or tingling. Review of Systems See HPI. Past Medical History Past Medical History: Atrial Fibrillation, Coronary Artery Disease (CAD), Heart Failure, Hyperlipidemia, Hypertension, [place]ocardial Infarction ([place]) Additional Past Medical History / Comment(s): ? 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 gout in past. 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 CURRENTLY ON DISABILTY D/T HIS BACK Smoking Status: Never smoker Past Alcohol Use History: None Reported Past Drug Use History: None Reported - Past Family History Mother Family Medical History: Cancer Additional Family Medical History / Comment(s): breast cancer, heart problems was on warfarin(pt stated she bled out) Father Family Medical History: Coronary Artery Disease (CAD), [place] Infarction ([place] ) Medications and Allergies Home Medications Medication Instructions Recorded Confirmed Type Aspirin 81 mg PO DAILY 07/03/13 12/25/16 History FLUoxetine HCL [PROzac] 20 mg PO DAILY 07/03/13 12/25/16 History Labetalol HCl [Trandate] 600 mg PO BID 07/03/13 12/25/16 History Ranolazine [Ranexa] 1,000 mg PO BID 07/03/13 12/25/16 History QUEtiapine [SEROquel] 25 mg PO HS 12/25/13 12/25/16 History Terazosin [Hytrin] 8 mg PO HS 12/25/13 12/25/16 History Isosorbide Mononitrate ER [Imdur] 60 mg PO DAILY 03/11/15 12/25/16 History Bumetanide [BUMEX] 4 mg PO DAILY 04/20/16 12/25/16 History Rivaroxaban [Xarelto] 15 mg PO HS 04/20/16 12/25/16 History Atorvastatin [Lipitor] 20 mg PO DAILY 12/25/16 12/25/16 History LORazepam [Ativan] 1 mg PO TID PRN 12/25/16 12/25/16 History Losartan Potassium [Cozaar] 100 mg PO DAILY 12/25/16 12/25/16 History Nitroglycerin Sl Tabs [Nitrostat] 0.4 mg SUBLINGUAL Q5M PRN 12/25/16 12/25/16 History Omeprazole 20 mg PO DAILY 12/25/16 12/25/16 History oxyCODONE HCL [Roxicodone] 5 mg PO BID PRN 12/25/16 12/25/16 History rOPINIRole HCL [Requip] 0.5 mg PO TID 12/25/16 12/25/16 History traZODone HCL 100 mg PO HS PRN 12/25/16 12/25/16 History Allergies Allergy/AdvReac Type Severity Reaction Status Date / Time amlodipine AdvReac CONSTIPATIO Verified 12/25/16 17:33 N atenolol AdvReac MALE ED Verified 12/25/16 17:33 hydrochlorothiazide AdvReac RENAL Verified 12/25/16 17:33 IMPAIRMENT pravastatin AdvReac Rash/Hives Verified 12/25/16 17:33 Physical Examination On exam of the right lower extremity there is evidence for healing wounds to the right lower leg. There is no significant swelling or effusion of the right knee. There is no significant surrounding erythema. Neurovascular status to the right lower extremity is intact. Results X-rays of bilateral knees are reviewed showing no fracture or dislocation. - Labs Labs: Abnormal Lab Results - Last 24 Hours (Table) 11/08/17 11/08/17 11/08/17 Range/Units 06:39 06:39 06:39 RBC 3.07 L (4.30-5.90) m/uL Hgb 9.7 L (13.0-17.5) gm/dL Hct 30.3 L (39.0-53.0) % ESR 116 H (0-15) mm/hr BUN 50 H (9-20) mg/dL Creatinine 3.07 H (0.66-1.25) mg/dL Glucose 108 H (74-99) mg/dL Total Bilirubin 1.9 H (0.2-1.3) mg/dL AST 86 H (17-59) U/L Total Creatine Kinase 2665 H (55-170) U/L CK-MB (CK-2) 19.4 H* (0.0-2.4) ng/mL Troponin I 0.053 H* (0.000-0.034) ng/mL Total Protein 6.1 L (6.3-8.2) g/dL Albumin 3.3 L (3.5-5.0) g/dL H & H 12/25/16 12/27/16 Range/Units 17:14 06:39 Hgb 10.6 L 9.7 L (13.0-17.5) gm/dL Hct 31.8 L 30.3 L (39.0-53.0) % Coagulation 12/25/16 Range/Units 17:14 INR 1.5 H (<1.2) Result Diagrams: 12/27/16 06:39 12/27/16 06:39 Assessment and Plan (1) Cellulitis of right lower extremity Current Visit: Yes Status: Acute Code(s): L03.115 - CELLULITIS OF RIGHT LOWER LIMB SNOMED Code(s): 679724182 Plan: #1. Continue antibiotics. #2. No surgical intervention planned at this time.
[2016-12-27 09:53] LABS: C Reactive Protein 193.7 mg/L (<10.0)
[2016-12-27] MEDS: PANTOPRAZOLE 40 MG/10 ML VIAL IVP SCH (10:38)
[2016-12-27] MEDS: ASPIRIN 81 MG PO SCH (10:38)
[2016-12-27] MEDS: LABETALOL 200 MG TAB PO SCH ×2 (10:39→20:56)
[2016-12-27] MEDS: RANOLAZINE 500 MG TAB.ER.12H PO SCH ×2 (10:41→20:53)
[2016-12-27] MEDS: ISOSORBIDE MONONITRATE ER 60 MG TAB.ER.24H PO SCH (10:41)
[2016-12-27] MEDS: FLUoxetine HCL 20 MG CAP PO SCH (10:41)
[2016-12-27] MEDS: ATORVASTATIN 20 MG TAB PO SCH (10:41)
[2016-12-27] MEDS: LORazepam 1 MG TAB PO SCH ×2 (10:47→20:51)
--- NOTE | 2016-12-27 12:22 | ECHOF ---
Referral Reason:shortness of breath MEASUREMENTS -------- HEIGHT: 175.3 cm WEIGHT: 131.5 kg BP: RVIDd: 2.7 cm (< 3.3) IVSd: 1.6 cm (0.6 - 1.1) LVIDd: 4.2 cm (3.9 - 5.3) LVPWd: 1.5 cm (0.6 - 1.1) IVSs: 1.5 cm LVIDs: 3.7 cm LVPWs: 1.2 cm LA Diam: 4.4 cm (2.7 - 3.8) Ao Diam: 3.5 cm (2.0 - 3.7) LA Diam: 4.2 cm (2.7 - 3.8) EPSS: 0.6 cm RAP: 5.00 mmHg RVSP: 28.45 mmHg MV EF SLOPE: 87.97 mm/s (70 - 150) MV EXCURSION: 1.85 cm (> 18.000) FINDINGS -------- Atrial fibrillation. Morbid Obesity The left ventricular size is normal. There is mild concentric left ventricular hypertrophy. Overa ll left ventricular systolic function is normal with, an EF between 55 - 60 %. The right ventricle is normal in size. The left atrium is mildly dilated. The right atrial size is normal. 1.5MG OF DEFINITY UTLIZED: 2 OR MORE WALL SEGMENTS NOT VISUALIZED. There is mild aortic valve sclerosis. Mild mitral annular calcification present. Mild mitral regurgitation is present. Mild tricuspid regurgitation present. There is no evidence of pulmonary hypertension. The right v entricular systolic pressure, as measured by Doppler, is 28.45mmHg. Trace/mild (physiologic) pulmonic regurgitation. The aortic root size is normal. Echo free space indicative of a pericardial fat pad. CONCLUSIONS -------- 1. Atrial fibrillation. 2. Morbid Obesity 3. There is mild concentric left ventricular hypertrophy. 4. Overall left ventricular systolic function is normal with, an EF between 55 - 60 %. 5. The left atrium is mildly dilated. 6. 1.5MG OF DEFINITY UTLIZED: 2 OR MORE WALL SEGMENTS NOT VISUALIZED. 7. There is mild aortic valve sclerosis. 8. Mild mitral annular calcification present. 9. Mild mitral regurgitation is present. 10. Mild tricuspid regurgitation present. 11. There is no evidence of pulmonary hypertension. 12. Trace/mild (physiologic) pulmonic regurgitation. 13. The aortic root size is normal. 14. Echo free space indicative of a pericardial fat pad. DIGITAL CONTENT COORDINATOR: Kristen Andrews RDCS
[2016-12-27] MEDS: BUMETANIDE 1 MG TAB PO SCH (12:47)
[2016-12-27] MEDS: LOSARTAN 50 MG TAB PO SCH (12:47)
[2016-12-27 13:21] LABS: Creatine Kinase MB 27.2 ng/mL (0.0-2.4)
[2016-12-27 13:22] LABS: Troponin I 0.057 ng/mL (0.000-0.034)
--- NOTE | 2016-12-27 13:38 | XR ---
EXAMINATION TYPE: XR chest 2V DATE OF EXAM: 12/27/2016 COMPARISON: 12/25/2016 HISTORY: Shortness of breath TECHNIQUE: Frontal and lateral views of the chest are obtained. FINDINGS: Scattered senescent parenchymal changes noted. Hyperinflation compatible with COPD. Stable fibrotic c hanges. No evidence for infiltrate. No evidence for atelectasis. Heart size is stable. Mediastinal structures are stable and grossly unremarkable. No evidence for hilar prominence. Degenerative changes dorsal spine. IMPRESSION: 1. No evidence for acute pulmonary disease.
--- NOTE | 2016-12-27 14:04 | P.CRDCN ---
History of Present Illness Consult date: 12/27/16 History of present illness: This is a 71-year-old male past medical history significant for coronary artery disease with prior stents at the [facility] in [place], paroxysmal atrial fibrillation on long-term anticoagulation, hyperlipidemia, hypertension, chronic kidney disease and heart failure per the patient. He has had all of his cardiac care at the [facility] in [place] and those records have been requested. We've asked to see this patient in consultation for an episode of chest pain early this morning and was found to be in atrial fibrillation at that time. EKG on admission was sinus mechanism. According to the patient he has been feeling generalized weakness over the past week or so with inability to carry out his activities of daily living at home and inability to even get up out of the chair on his own. He is being evaluated for chronic lower extremity gout and right lower extremity cellulitis. At the time of my exam he is seen sitting in bed in no acute distress with his at the bedside. He is currently in atrial fibrillation with controlled ventricular response on telemetry. He is also wearing oxygen via nasal cannula and unable to complete full sentences without stopping to take a breath. He also complains of increasing dyspnea on exertion and orthopnea. No PND. EKG reveals atrial fibrillation with controlled ventricular response. Blood pressure 140/63 with heart rate 88. Potassium 4.2, magnesium 2.2, BUN 50, Cr 3.07, Hgb 9.7, platelets 310, INR 1.5. Current cardiac medications include ranexa 1000 mg BID, xarelto 15 mg daily, losartan 100 mg daily, labetolol 600 mg BID, imdur 60 mg daily, bumex 4 mg daily , lipitor 20 mg daily and aspirin 81 mg daily. Losartan has been held per nephrology. Review of Systems CONSTITUTIONAL: Denies fever. Denies chills. EYES: Denies blurred vision. Denies vision changes. Denies eye pain. EARS, NOSE, MOUTH & THROAT: Denies headache. Denies sore throat. Denies ear pain. CARDIOVASCULAR: Complains of one episode of chest pain that has resolved. Complains of shortness of breath, exertional dyspnea and orthopnea. Denies PND. Denies palpitations. RESPIRATORY: Denies cough. GASTROINTESTINAL: Denies abdominal pain. Denies diarrhea. Denies constipation. Denies nausea. Denies vomitng. MUSCULOSKELETAL: Denies myalgias. INTEGUMENTARY: Denies pruitis. Denies rash. NEUROLOGIC: Denies numbness. Denies tingling. Complains of generalized weakness. PSYCHIATRIC: Denies anxiety. Denies depression. ENDOCRINE: Denies fatigue. Denies weight change. Denies polydipsia. Denies polyurina. GENITOURINARY: Denies burning, hematuria or urgency with micturation. HEMATOLOGIC: Denies history of anemia. Denies bleeding. Past Medical History Past Medical History: Atrial Fibrillation, Coronary Artery Disease (CAD), Heart Failure, Hyperlipidemia, Hypertension, Myocardial Infarction ([place]) Additional Past Medical History / Comment(s): ? 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 gout in past. 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 CURRENTLY ON DISABILTY D/T HIS BACK Smoking Status: Never smoker Past Alcohol Use History: None Reported Past Drug Use History: None Reported - Past Family History Mother Family Medical History: Cancer Additional Family Medical History / Comment(s): breast cancer, heart problems was on warfarin(pt stated she bled out) Father Family Medical History: Coronary Artery Disease (CAD), Myocardial Infarction ([place] ) Medications and Allergies Home Medications Medication Instructions Recorded Confirmed Type Aspirin 81 mg PO DAILY 07/03/13 12/25/16 History FLUoxetine HCL [PROzac] 20 mg PO DAILY 07/03/13 12/25/16 History Labetalol HCl [Trandate] 600 mg PO BID 07/03/13 12/25/16 History Ranolazine [Ranexa] 1,000 mg PO BID 07/03/13 12/25/16 History QUEtiapine [SEROquel] 25 mg PO HS 12/25/13 12/25/16 History Terazosin [Hytrin] 8 mg PO HS 12/25/13 12/25/16 History Isosorbide Mononitrate ER [Imdur] 60 mg PO DAILY 03/11/15 12/25/16 History Bumetanide [BUMEX] 4 mg PO DAILY 04/20/16 12/25/16 History Rivaroxaban [Xarelto] 15 mg PO HS 04/20/16 12/25/16 History Atorvastatin [Lipitor] 20 mg PO DAILY 12/25/16 12/25/16 History LORazepam [Ativan] 1 mg PO TID PRN 12/25/16 12/25/16 History Losartan Potassium [Cozaar] 100 mg PO DAILY 12/25/16 12/25/16 History Nitroglycerin Sl Tabs [Nitrostat] 0.4 mg SUBLINGUAL Q5M PRN 12/25/16 12/25/16 History Omeprazole 20 mg PO DAILY 12/25/16 12/25/16 History oxyCODONE HCL [Roxicodone] 5 mg PO BID PRN 12/25/16 12/25/16 History rOPINIRole HCL [Requip] 0.5 mg PO TID 12/25/16 12/25/16 History traZODone HCL 100 mg PO HS PRN 12/25/16 12/25/16 History Allergies Allergy/AdvReac Type Severity Reaction Status Date / Time amlodipine AdvReac CONSTIPATIO Verified 12/25/16 17:33 N atenolol AdvReac MALE ED Verified 12/25/16 17:33 hydrochlorothiazide AdvReac RENAL Verified 12/25/16 17:33 IMPAIRMENT pravastatin AdvReac Rash/Hives Verified 12/25/16 17:33 Physical Exam Vitals: Vital Signs Temp Pulse Pulse Resp BP Pulse Ox 12/27/16 07:00 99.2 F 88 20 140/63 93 L 12/27/16 06:35 93 22 123/59 91 L 12/27/16 06:33 20 93 L 12/27/16 06:28 88 20 128/59 88 L 12/27/16 06:10 98.4 F 63 18 144/64 86 L 12/26/16 20:40 97.9 F 60 16 123/60 94 L 12/26/16 20:04 98.1 F 61 20 134/63 91 L 12/26/16 15:00 98.2 F 72 16 110/52 93 L Intake and Output 12/26/16 12/27/16 12/27/16 22:59 06:59 14:59 Intake Total 50 Output Total 200 900 Balance -200 -850 Intake: IV 50 Piperacillin-Tazobactam 3 50 .375 gm In Dextrose/Water 1 50ml.bag @ 12.5 mls/hr IVPB Q8HR [facility] Rx#: [id number] Output: Urine 200 900 Other: Voiding Method Urinal # Voids 1 GENERAL: This is a 71-year-old male in no apparent distress at the time of my examination. Obese. HEENT: Head is atraumatic, normocephalic. Pupils are equal, round. Sclerae anicteric. Conjunctivae are clear. Mucous membranes of the mouth are moist. Neck is supple. There is jugular venous distention. No carotid bruit is heard. LUNGS: Faint expiratory wheeze no rales or rhonchi. No chest wall tenderness is noted on palpation or with deep breathing. HEART: Irregular rate and rhythm with systolic ejection murmur at the base, no rubs or gallops. S1 and S2 heard. ABDOMEN: Soft, nontender. Bowel sounds are heard. No organomegaly noted. EXTREMITIES: 1+ peripheral pulses with trace bilateral lower extremity edema and no calf tenderness noted. NEUROLOGIC: Patient is awake, alert and oriented x3. Results 12/27/16 06:39 12/27/16 06:39 Cardiac Enzymes 12/27/16 12/27/16 Range/Units 06:39 06:39 AST 86 H (17-59) U/L CK-MB (CK-2) 19.4 H* (0.0-2.4) ng/mL Troponin I 0.053 H* (0.000-0.034) ng/mL CBC 12/27/16 Range/Units 06:39 WBC 10.1 (3.8-10.6) k/uL RBC 3.07 L (4.30-5.90) m/uL Hgb 9.7 L (13.0-17.5) gm/dL Hct 30.3 L (39.0-53.0) % Plt Count 310 (150-450) k/uL Comprehensive Metabolic Panel 12/27/16 Range/Units 06:39 Sodium 138 (137-145) mmol/L Potassium 4.2 (3.5-5.1) mmol/L Chloride 101 (98-107) mmol/L Carbon Dioxide 26 (22-30) mmol/L BUN 50 H (9-20) mg/dL Creatinine 3.07 H (0.66-1.25) mg/dL Glucose 108 H (74-99) mg/dL Calcium 8.7 (8.4-10.2) mg/dL AST 86 H (17-59) U/L ALT 41 (21-72) U/L Alkaline Phosphatase 91 (38-126) U/L Total Protein 6.1 L (6.3-8.2) g/dL Albumin 3.3 L (3.5-5.0) g/dL Current Medications Generic Name Dose Route Start Last Admin Trade Name Freq PRN Reason Stop Dose Admin Aspirin 81 mg 12/26/16 09:00 12/26/16 08:57 Aspirin PO 81 mg DAILY KARINE Administration Atorvastatin Calcium 20 mg 12/26/16 09:00 12/26/16 08:57 Lipitor PO 20 mg DAILY KARINE Administration Doxazosin Mesylate 8 mg 12/25/16 21:00 12/26/16 22:07 Cardura PO 8 mg HS KARINE Administration Fluoxetine HCl 20 mg 12/26/16 09:00 12/26/16 08:57 Prozac PO 20 mg DAILY KARINE Administration Piperacillin/Tazobactam/ 50 mls @ 12.5 mls/hr 12/26/16 02:00 12/26/16 23:26 Dextrose 3.375 gm/ IV Solution IVPB 12.5 mls/hr Q8HR KARINE Administration Isosorbide Mononitrate 60 mg 12/26/16 09:00 12/26/16 08:57 Imdur PO 60 mg DAILY KARINE Administration Labetalol HCl 600 mg 12/25/16 21:00 12/26/16 22:02 Trandate PO 600 mg BID KARINE Administration Lorazepam 1.5 mg 12/25/16 21:00 12/26/16 22:01 Ativan PO 1.5 mg BID KARINE Administration Morphine Sulfate 2 mg 12/25/16 21:19 12/27/16 06:16 Morphine Sulfate (Inj) IVP 2 mg Q3H PRN Administration MODERATE TO SEVERE Pain Naloxone HCl 0.2 mg 12/25/16 19:20 Narcan IV Q2M PRN Opioid Reversal Nitroglycerin 0.4 mg 12/25/16 19:22 12/27/16 06:26 Nitrostat SUBLINGUAL 0.4 mg Q5M PRN Administration Chest Pain Oxycodone HCl 5 mg 12/25/16 21:00 12/26/16 21:58 Oxyir PO 5 mg BID KARINE Administration Pantoprazole Sodium 40 mg 12/26/16 20:15 12/26/16 20:41 Protonix IVP 40 mg DAILY KARINE Administration Quetiapine Fumarate 25 mg 12/25/16 21:00 12/26/16 21:57 Seroquel PO 25 mg HS KARINE Administration Ranolazine 500 mg 12/25/16 21:00 12/26/16 21:56 Ranexa PO 500 mg BID KARINE Administration Rivaroxaban 15 mg 12/25/16 21:00 12/26/16 21:57 Xarelto PO 15 mg HS KARINE Administration Ropinirole HCl 0.5 mg 12/25/16 21:00 12/26/16 22:08 Requip PO 0.5 mg BID KARINE Administration Intake and Output 12/26/16 12/27/16 12/27/16 22:59 06:59 14:59 Intake Total 50 Output Total 200 900 Balance -200 -850 Intake: IV 50 Piperacillin-Tazobactam 3 50 .375 gm In Dextrose/Water 1 50ml.bag @ 12.5 mls/hr IVPB Q8HR [facility] Rx#: [id number] Output: Urine 200 900 Other: Voiding Method Urinal # Voids 1 12/27/16 06:39 12/27/16 06:39 Assessment and Plan Assessment: ASSESSMENT 1. Chronic paroxysmal atrial fibrillation on long-term anticoagulation with controlled ventricular response 2. History of coronary artery disease with stenting 3. History of heart failure, unknown type awaiting previous records and echocardiogram 4. Hyperlipidemia 5. Hypertension 6. Elevated troponin, may be secondary to renal function. Will continue to obtain serial troponins. PLAN Obtain 2-D echocardiogram and Doppler study to assess cardiac structure and function. Check TSH and proBNP. Continue to obtain serial cardiac enzymes. Further recommendations will be based upon clinical course. Nurse Practitioner note has been reviewed, I agree with a documented findings and plan of care. Patient was seen and examined.
--- NOTE | 2016-12-27 15:32 | CONS ---
CONSULTATION REASON FOR CONSULT: Renal failure. HISTORY OF PRESENT ILLNESS: The patient is a 71-year-old male with history of chronic kidney disease NKF stage IV, being followed at the [facility]. 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 He states that his baseline creatinine is about 2.7 mg/dL. He was admitted to the hospital with a history of fall and increased weakness. The patient's blood pressure was initially high and now it has been staying on the lower side with systolic around 110-120 mmHg. He denies use of any nonsteroidal anti-inflammatory agents prior to admission, but I did see Motrin on his current med list in the hospital. The patient is also maintained on losartan at 100 mg daily. His serum creatinine on admission was 2.89, it went up to 3.0 today. He has had good urine output and it has not been accurately measured. PAST MEDICAL HISTORY: Hypertension, chronic kidney disease, NKF stage IV, atrial fibrillation, coronary artery disease, CHF with ejection fraction not known. History of PR, hyperlipidemia, hypertension, coronary stents. PAST SURGICAL HISTORY: Cardiac catheterization, coronary stent placement, tonsillectomy. SOCIAL HISTORY: Negative for smoking, drug abuse or alcohol abuse. MEDICATIONS: Medications at home included aspirin, labetalol, and Ranexa. Seroquel, Bumex, Xarelto, Lipitor, Ativan, Cozaar, Requip, oxycodone, trazodone, Hytrin, Imdur. ALLERGIES: INCLUDE AMLODIPINE, ATENOLOL, HYDROCHLOROTHIAZIDE, PRAVASTATIN. EXAMINATION: Patient is comfortable, awake. He is not in any acute distress. Alert and oriented x3. Blood pressure 120/59, heart rate 93 per minute. He is afebrile. Examination of the heart S1, S2. Examination lungs bilateral breath sounds are heard. Abdomen is soft, nontender. Examination of the lower extremities shows chronic skin changes and edema 1+ bilaterally. [employer] exam is grossly intact. LAB: Shows sodium 138, potassium 4.2, chloride 101, BUN 50, serum creatinine 3.07, hemoglobin 9.7 g/dL with a magnesium 2.2. CK was initially 82 and then went up to 6182 today. BNP is elevated at 5880. The UA shows trace protein, otherwise no blood or cells are noted. Chest x-ray on admission on December 25, showed cardiomegaly with mild pulmonary fibrotic changes. Echocardiogram done today shows ejection fraction 55-60%. ASSESSMENT: 1. Acute kidney injury, most likely prerenal or related to cardiorenal currently patient is maintained on Lasix which we will continue for now as he does have volume overload. I will discontinue the Cozaar since his blood pressure is on the lower side. The patient's baseline creatinine is about 2.7. His UA is completely benign and and I will check an ultrasound of the kidneys as well, for postvoid urine volume will also be checked. 2. Chronic kidney disease NKF stage IV with previous creatinine at 2.7. According to the patient, he follows with a cylinder die machine operator out of the [facility]. Etiology is likely nephrosclerosis. Trace protein on the urinalysis. 3. Volume overload. The patient had been on Lasix and Bumex, which I see is now discontinued. He does have some lower extremity edema, but his lungs are fairly clear. We can assess his volume status on a daily basis and use diuretics as needed. 4. Rhabdomyolysis with worsening CK levels. The Lipitor was discontinued yesterday. Plan to hold angiotensin receptor blockers, DC Motrin. May continue with diuretics depending on the volume status. Currently, patient is status post diuresis with no significant congestive heart failure at this time. 5. Hypertension, initially uncontrolled, currently much better controlled. PLAN: Repeat labs in a.m. Check ultrasound of the kidneys. The patient apparently had an MRI done as outpatient, which we can obtain as it was done through the [facility]. Thank you for this consultation. We will continue to follow the patient with you during his hospitalization. MMODL / IJN: [id number] /
--- NOTE | 2016-12-27 15:58 | US ---
EXAMINATION TYPE: US renals and bladder DATE OF EXAM: 12/27/2016 COMPARISON: NONE CLINICAL HISTORY: renal failure. EXAM MEASUREMENTS: Right Kidney: 13.0 x 5.9 x 5.2 cm Left Kidney: 11.3 x 5.7 x 5.0 cm Morbidly obese patient who couldn't be woken up by examiner. Technically difficult and very limited s tudy Right Kidney: lobular contour, no masses identified, upper limits of normal size Left Kidney: unable to view in its entirety, size only estimated, inferior and mid obscured, portions visualized wnl Bladder: limited visualization IMPRESSION: Limited evaluation due to patient body habitus with no evidence of hydronephrosis or nephrolithiasis within either kidney.
--- NOTE | 2016-12-27 17:46 | P.PN ---
Subjective Progress Note Date: 12/27/16 patient seen bedside. Early this morning patient had episodes of chest pain which he described as substernalan EKG done at that time showed the patient had A. fib controlled rate. Cardiac enzymes were obtained and showed elevated CK- MB along with elevated troponinsof 0.053 however labs reflect worsening renal function at the time of interview patient denies any chest pain no shortness of breath of the he is complaining of generalized muscle pain more notably in the lower extremity Objective - Vital Signs Vital signs: Vital Signs Temp 98.1 F 12/27/16 15:00 Pulse 80 12/27/16 15:00 Resp 30 H 12/27/16 15:00 BP 110/54 12/27/16 15:00 Pulse Ox 96 12/27/16 15:00 Intake & Output 12/26/16 12/27/16 12/27/16 18:59 06:59 18:59 Intake Total 50 480 Output Total 480 1100 Balance -480 -1050 480 Intake: IV 50 Piperacillin-Tazobactam 3 50 .375 gm In Dextrose/Water 1 50ml.bag @ 12.5 mls/hr IVPB Q8HR [facility] Rx#: [id number] Oral 480 Output: Urine 480 1100 Other: Voiding Method Urinal Urinal # Voids 1 1 - Exam General appearance: alert and awake oriented 3 in no apparent distress nontoxic -appearing. None diaphoretic, at bedside Head exam: Present: atraumatic, normocephalic, normal inspection Eye exam: , PERRL, EOMI. Absent: scleral icterus, conjunctival injection, periorbital swelling ENT exam:: mucous membranes dry free of any lesions Neck exam: Patient has bilateral supraclavicular fullness. Absent: tenderness, meningismus, lymphadenopathy Respiratory exam: Present: normal lung sounds bilaterally. Absent: respiratory distress, wheezes, rales, rhonchi, stridor Cardiovascular Exam: Present: irregularly irregular, normal heart sounds. Absent: systolic murmur, diastolic murmur, rubs, gallop, clicks GI/Abdominal exam: Present: soft, normal bowel sounds. Absent: distended, tenderness, guarding, rebound, rigid Extremities exam: Present: full ROM, normal capillary refill, stasis dermatitis by lower lower extremity no his no obvious deformity no increased localized temperature no effusions noted to the ankles or knees is extreme tenderness to bilateral knees in the medial aspect even to superficial touch, flexion of the knee reproduces significant pain. There is tenderness palpation of the right first MTP also there is an abrasion that is healing with some localized increased temperature to the right anterior leg. Back exam: Present: normal inspection Neurological exam: Present: alert, oriented X3, CN II-XII intact Psychiatric exam: Present: normal affect, normal mood Skin exam: Present: warm, dry, intact, normal color. Absent: rash - Labs CBC & Chem 7: 12/27/16 06:39 12/27/16 06:39 Labs: Abnormal Lab Results - Last 24 Hours (Table) 12/27/16 12/27/16 12/27/16 Range/Units 06:39 06:39 06:39 RBC 3.07 L (4.30-5.90) m/uL Hgb 9.7 L (13.0-17.5) gm/dL Hct 30.3 L (39.0-53.0) % ESR 116 H (0-15) mm/hr BUN 50 H (9-20) mg/dL Creatinine 3.07 H (0.66-1.25) mg/dL Glucose 108 H (74-99) mg/dL Total Bilirubin 1.9 H (0.2-1.3) mg/dL AST 86 H (17-59) U/L Total Creatine Kinase 2665 H (55-170) U/L CK-MB (CK-2) 19.4 H* (0.0-2.4) ng/mL Troponin I 0.053 H* (0.000-0.034) ng/mL C-Reactive Protein 193.7 H (<10.0) mg/L Total Protein 6.1 L (6.3-8.2) g/dL Albumin 3.3 L (3.5-5.0) g/dL 12/27/16 Range/Units 12:03 RBC (4.30-5.90) m/uL Hgb (13.0-17.5) gm/dL Hct (39.0-53.0) % ESR (0-15) mm/hr BUN (9-20) mg/dL Creatinine (0.66-1.25) mg/dL Glucose (74-99) mg/dL Total Bilirubin (0.2-1.3) mg/dL AST (17-59) U/L Total Creatine Kinase 6182 H (55-170) U/L CK-MB (CK-2) 27.2 H* (0.0-2.4) ng/mL Troponin I 0.057 H* (0.000-0.034) ng/mL C-Reactive Protein (<10.0) mg/L Total Protein (6.3-8.2) g/dL Albumin (3.5-5.0) g/dL Assessment and Plan Assessment: #1 severe bilateral lower extremity pain with weakness, patient does have a history of gout his uric acid was noted to be elevated on labs could very well be an acute gouty attack however is relatively in bilateral knees on examination there is effusion orthopedics seen about the patient no interventions were undertaken. Bilateral knee x-rays did show degenerative changes consistent with osteo-arthritis in bilateral knees. patient is noted to be on Xarelto will o patient will also need physical and occupational therapy consults for eval #2this is likely polyarticular acute gout flare uricacidemia patient is noted to be on allopurinol is to continue he does have underlying chronic kidney disease nephrology was consulted appreciate recommendations. At this time we' ll start him on prednisone 40 mg oral daily patient cannot use NSAIDs due to worsening renal failure possibly ACS. #3 history of fibrillation with a CHADS>2 , patient is on anticoagulation with Xarelto #4 Chronic pain. #5 hypertension #6 acute kidney injury on chronic kidney disease unknown GFR worsened on today' s labs patient had a creatinine of 1.77 back on February 2015 patient's creatinine on this admission is 2.89 this is likely due to combination of progressive renal disease along with dehydration nephrology to be consulted For the above noted conditions please resume home medications hold Bumex due to underlying kidney injury #7elevated total creatinine kinase, could be medical multifactorial due to cardiological issues versus then induced myopathy given the patient's having extreme weakness and symmetrical ascending pattern we will discontinue statin therapy for now and will continue to observe. Morbid obesity patient counseled on lifestyle[ modifications and proper eating habits Further recommendations follow-up in his overall progress. Disposition anticipate discharge in the next 24-48 hours
[2016-12-27] MEDS: predniSONE 20 MG TAB PO SCH (18:58)
[2016-12-27] MEDS: DOXAZOSIN 4 MG TAB PO SCH (20:53)
[2016-12-27] MEDS: RIVAROXABAN 15 MG TAB PO SCH (20:53)
[2016-12-27] MEDS: QUEtiapine 25 MG TAB PO SCH (20:53)
[2016-12-28 07:07] LABS: CH 32.6; CHCM 33.1; HCT 32.3 % (39.0-53.0); HDW 2.44; HGB 10.4 gm/dL (13.0-17.5); MCH 31.9 pg (25.0-35.0); MCHC 32.3 g/dL (31.0-37.0); MCV 98.8 fL (80.0-100.0); Mean Platelet Volume 7.4; RBC 3.27 m/uL (4.30-5.90); RDW 12.4 % (11.5-15.5); WBC 11.4 k/uL (3.8-10.6)
[2016-12-28 08:05] LABS: Calcium 9.1 mg/dL (8.4-10.2); Magnesium 2.4 mg/dL (1.6-2.3); Phosphorus 4.3 mg/dL (2.5-4.5); Potassium 4.5 mmol/L (3.5-5.1); Total Bilirubin 1.6 mg/dL (0.2-1.3); Total Protein 6.4 g/dL (6.3-8.2)
[2016-12-28] MEDS: PIPERACILLIN-TAZOBACTAM 3.375 GM in DEXTROSE/WATER 1 50ML.BAG IVPB SCH ×2 (08:43→18:11)
[2016-12-28] MEDS: ASPIRIN 81 MG PO SCH (08:44)
[2016-12-28] MEDS: ISOSORBIDE MONONITRATE ER 60 MG TAB.ER.24H PO SCH (08:45)
[2016-12-28] MEDS: LABETALOL 200 MG TAB PO SCH ×2 (08:45→22:42)
[2016-12-28] MEDS: FLUoxetine HCL 20 MG CAP PO SCH (08:45)
[2016-12-28] MEDS: predniSONE 20 MG TAB PO SCH (08:46)
[2016-12-28] MEDS: RANOLAZINE 500 MG TAB.ER.12H PO SCH ×2 (08:46→22:41)
[2016-12-28] MEDS: PANTOPRAZOLE 40 MG/10 ML VIAL IVP SCH (08:46)
[2016-12-28] MEDS: NITROGLYCERIN SL TABS 0.4 MG TAB SUBLINGUAL PRN (08:47)
[2016-12-28] MEDS: LORazepam 1 MG TAB PO SCH ×2 (09:07→22:41)
--- NOTE | 2016-12-28 12:33 | P.PN ---
Subjective Patient seen in follow-up for acute kidney injury on chronic kidney disease. Patient has chronic kidney disease stage IV likely secondary to nephrosclerosis. He follows with ged instructor out of [facility]. Patient presented after his legs gave out a few days ago. Patient felt quite weak and presented to the hospital. Renal function is improved with creatinine at 2.62 today. Cozaar and diuretics are currently held. He denies any chest pain or shortness of breath. He has been voiding. No hematuria or dysuria. Vital signs are stable. General: The patient appeared well nourished and normally developed. HEENT: Head exam is unremarkable. Neck is without jugular venous distension. LUNGS: Lungs are clear to auscultation and percussion. Breath sounds decreased. HEART: Rate and Rhythm are regular. First and second heart sounds normal. No murmurs, rubs or gallops. ABDOMEN: Abdominal exam reveals normal bowel sounds. Non-tender and non- distended. No evidence of peritonitis. EXTREMITITES: No clubbing, cyanosis, or edema. Objective - Vital Signs Vital signs: Vital Signs Temp 97.7 F 12/28/16 07:00 Pulse 100 12/28/16 07:00 Resp 18 12/28/16 07:00 BP 149/74 12/28/16 07:00 Pulse Ox 94 L 12/28/16 08:58 Intake & Output 12/27/16 12/28/16 12/28/16 18:59 06:59 18:59 Intake Total 1490 50 Output Total 300 Balance 1490 -250 Weight 132 kg Intake: IV 50 50 Piperacillin-Tazobactam 3 50 50 .375 gm In Dextrose/Water 1 50ml.bag @ 12.5 mls/hr IVPB Q8HR [facility] Rx#: [id number] Oral 1440 Output: Urine 300 Other: Voiding Method Urinal Urinal # Voids 3 1 - Labs CBC & Chem 7: 12/28/16 06:51 12/28/16 06:51 Labs: Abnormal Lab Results - Last 24 Hours (Table) 12/27/16 12/28/16 12/28/16 Range/Units 12:03 06:51 06:51 WBC 11.4 H (3.8-10.6) k/uL RBC 3.27 L (4.30-5.90) m/uL Hgb 10.4 L (13.0-17.5) gm/dL Hct 32.3 L (39.0-53.0) % BUN 51 H (9-20) mg/dL Creatinine 2.62 H (0.66-1.25) mg/dL Glucose 141 H (74-99) mg/dL Magnesium 2.4 H (1.6-2.3) mg/dL Total Bilirubin 1.6 H (0.2-1.3) mg/dL AST 228 H (17-59) U/L Total Creatine Kinase 6182 H (55-170) U/L CK-MB (CK-2) 27.2 H* (0.0-2.4) ng/mL Troponin I 0.057 H* (0.000-0.034) ng/mL Albumin 3.3 L (3.5-5.0) g/dL Assessment and Plan Plan: Assessment: #1. Nonoliguric acute kidney injury mostly prerenal from hemodynamic instability and diuresis. Creatinine peaked at 3.07 this admission and is down to 2.62 today. Urinalysis is quite benign. No evidence of hydronephrosis. #2. Diastolic CHF. Currently compensated. #3. Chronic kidney disease stage IV likely secondary to nephrosclerosis. Patient follows with ged instructor out of the hospital. #4. Hypertension with chronic kidney disease. Controlled. #5. Rhabdomyolysis. CK level greater than 6000 as of yesterday. Statin has been discontinued. #6. Acute gout maintained on prednisone. Plan: Continue to hold off on Cozaar and diuretics for now. Encouraged oral intake. Avoid nephrotoxic agents and hypotensive episodes. Repeat CK level today and again tomorrow. Repeat electrolytes in the morning. No urgent need for renal replacement therapy at this time.
--- NOTE | 2016-12-28 13:21 | P.PN ---
Subjective Progress Note Date: 12/28/16 Mr. Terrell is a 71-year-old male past medical history significant for coronary artery disease with prior stents at the [facility] in [place], paroxysmal atrial fibrillation on long-term anticoagulation, hyperlipidemia, hypertension, chronic kidney disease and diastolic heart failure. Echocardiogram performed yesterday reveals preserved left ventricular systolic function with an ejection fraction 55-60%, mild left ventricular hypertrophy, mild aortic valve sclerosis, mild mitral regurgitation and mild tricuspid regurgitation. He remains in atrial fibrillation with a controlled ventricular response. Lower extremity swelling in his improved and almost absent at this time. His respirations are equal and unlabored his breathing seems less labored today. He denies chest pain, palpitations, dizziness, shortness of breath or nausea. Blood pressure 149/74 with a heart rate of 63. Mild troponin elevation is not indicative of an acute coronary syndrome with disproportionate CK levels. Appears more secondary to elevated creatinine. Renal function is improving. Objective - Vital Signs Vital signs: Vital Signs Temp 97.7 F 12/28/16 07:00 Pulse 100 12/28/16 07:00 Resp 18 12/28/16 07:00 BP 149/74 12/28/16 07:00 Pulse Ox 94 L 12/28/16 08:58 Intake & Output 12/27/16 12/28/16 12/28/16 18:59 06:59 18:59 Intake Total 1490 50 Output Total 300 Balance 1490 -250 Weight 132 kg Intake: IV 50 50 Piperacillin-Tazobactam 3 50 50 .375 gm In Dextrose/Water 1 50ml.bag @ 12.5 mls/hr IVPB Q8HR [facility] Rx#: [id number] Oral 1440 Output: Urine 300 Other: Voiding Method Urinal Urinal # Voids 3 1 - Exam GENERAL: Well-appearing, well-nourished and in no acute distress. NECK: Supple without JVD or thyromegaly. LUNGS: Breath sounds clear to auscultation bilaterally. Respiration equal and unlabored. No wheezes, rales or rhonchi. Diminished. HEART: Irregular rate and rhythm with systolic ejection murmur at the base, no rubs or gallops. S1 and S2 heard. EXTREMITIES: Normal range of motion, no edema. No clubbing or cyanosis. Peripheral pulses intact and strong. - Labs CBC & Chem 7: 12/28/16 06:51 12/28/16 06:51 Labs: Abnormal Lab Results - Last 24 Hours (Table) 12/27/16 12/28/16 12/28/16 Range/Units 12:03 06:51 06:51 WBC 11.4 H (3.8-10.6) k/uL RBC 3.27 L (4.30-5.90) m/uL Hgb 10.4 L (13.0-17.5) gm/dL Hct 32.3 L (39.0-53.0) % BUN 51 H (9-20) mg/dL Creatinine 2.62 H (0.66-1.25) mg/dL Glucose 141 H (74-99) mg/dL Magnesium 2.4 H (1.6-2.3) mg/dL Total Bilirubin 1.6 H (0.2-1.3) mg/dL AST 228 H (17-59) U/L Creatine Kinase (55-170) U/L Total Creatine Kinase 6182 H (55-170) U/L CK-MB (CK-2) 27.2 H* (0.0-2.4) ng/mL Troponin I 0.057 H* (0.000-0.034) ng/mL Albumin 3.3 L (3.5-5.0) g/dL 12/28/16 Range/Units 06:51 WBC (3.8-10.6) k/uL RBC (4.30-5.90) m/uL Hgb (13.0-17.5) gm/dL Hct (39.0-53.0) % BUN (9-20) mg/dL Creatinine (0.66-1.25) mg/dL Glucose (74-99) mg/dL Magnesium (1.6-2.3) mg/dL Total Bilirubin (0.2-1.3) mg/dL AST (17-59) U/L Creatine Kinase 7713 H (55-170) U/L Total Creatine Kinase (55-170) U/L CK-MB (CK-2) (0.0-2.4) ng/mL Troponin I (0.000-0.034) ng/mL Albumin (3.5-5.0) g/dL Assessment and Plan Assessment: ASSESSMENT 1. Chronic paroxysmal atrial fibrillation on long-term anticoagulation with controlled ventricular response 2. History of coronary artery disease with stenting 3. History of diastolic heart failure, compensated 4. Hyperlipidemia 5. Hypertension 6. Elevated troponin, not indicative of an acute coronary event. Secondary to elevated renal function. 7. Rhabdomyolysis PLAN Blood pressure and heart rate seemed to be controlled on current regimen. Continue present nephrology's recommendation to hold losartan and Bumex at this time as he does not appear to be in acute heart failure. Continue to monitor electrolytes, BUN/creatinine. Records have again been requested regarding his stenting and cardiac history at the [facility]. Nurse Practitioner note has been reviewed, I agree with a documented findings and plan of care. Patient was seen and examined.
--- NOTE | 2016-12-28 13:47 | P.PN ---
Subjective Progress Note Date: 12/28/16 patient seen bedside. No acute events overnight per nursing staff, He stated the pain in his LE is much improved to the point of non existence, He LE also is much improved. He currently denied any CP SOB, Cough, ABD pain , NO N/V Fever or chills. Objective - Vital Signs Vital signs: Vital Signs Temp 97.7 F 12/28/16 07:00 Pulse 100 12/28/16 07:00 Resp 18 12/28/16 07:00 BP 149/74 12/28/16 07:00 Pulse Ox 94 L 12/28/16 08:58 Intake & Output 12/27/16 12/28/16 12/28/16 18:59 06:59 18:59 Intake Total 1490 50 Output Total 300 Balance 1490 -250 Weight 132 kg Intake: IV 50 50 Piperacillin-Tazobactam 3 50 50 .375 gm In Dextrose/Water 1 50ml.bag @ 12.5 mls/hr IVPB Q8HR [facility] Rx#: [id number] Oral 1440 Output: Urine 300 Other: Voiding Method Urinal Urinal # Voids 3 1 - Exam General appearance: alert and awake oriented 3 in no apparent distress nontoxic -appearing. None diaphoretic, at bedside pleasant Head exam: Present: atraumatic, normocephalic, normal inspection Eye exam: , PERRL, EOMI. Absent: scleral icterus, conjunctival injection, periorbital swelling ENT exam:: mucous membranes dry free of any lesions Neck exam: Patient has bilateral supraclavicular fullness. Absent: tenderness, meningismus, lymphadenopathy Respiratory exam: Present: normal lung sounds bilaterally. Absent: respiratory distress, wheezes, rales, rhonchi, stridor Cardiovascular Exam: Present: irregularly irregular, normal heart sounds. Absent: systolic murmur, diastolic murmur, rubs, gallop, clicks GI/Abdominal exam: Present: soft, normal bowel sounds. Absent: distended, tenderness, guarding, rebound, rigid Extremities exam: Present: full ROM, normal capillary refill, stasis dermatitis by lower lower extremity no his no obvious deformity no increased localized temperature no effusions noted to the ankles Knee exam shows no reproducible pain as before, he has good felxsion and extention of the knee without any pain , swelling is much improved. Back exam: Present: normal inspection Neurological exam: Present: alert, oriented X3, CN II-XII intact Psychiatric exam: Present: normal affect, normal mood Skin exam: Present: warm, dry, intact, normal color. Absent: rash - Labs CBC & Chem 7: 12/28/16 06:51 12/28/16 06:51 Labs: Abnormal Lab Results - Last 24 Hours (Table) 12/28/16 12/28/16 12/28/16 Range/Units 06:51 06:51 06:51 WBC 11.4 H (3.8-10.6) k/uL RBC 3.27 L (4.30-5.90) m/uL Hgb 10.4 L (13.0-17.5) gm/dL Hct 32.3 L (39.0-53.0) % BUN 51 H (9-20) mg/dL Creatinine 2.62 H (0.66-1.25) mg/dL Glucose 141 H (74-99) mg/dL Magnesium 2.4 H (1.6-2.3) mg/dL Total Bilirubin 1.6 H (0.2-1.3) mg/dL AST 228 H (17-59) U/L Creatine Kinase 7713 H (55-170) U/L Albumin 3.3 L (3.5-5.0) g/dL Assessment and Plan Assessment: #1 severe bilateral lower extremity pain with weakness, patient does have a history of gout his uric acid was noted to be elevated on labs could very well be an acute gouty attack however is relatively in bilateral knees on examination there is effusion orthopedics seen about the patient no interventions were undertaken. Bilateral knee x-rays did show degenerative changes consistent with osteo-arthritis in bilateral knees. patient is noted to be on Xarelto will o patient will also need physical and occupational therapy consults for eval #2 this is likely polyarticular acute gout flare uricacidemia patient is noted to be on allopurinol is to continue he does have underlying chronic kidney disease nephrology was consulted appreciate recommendations. Patient was started on Prednisone 40mg on 12-27-2016 and his pain significantly improved will continue this for 5 more days #3 history of fibrillation with a CHADS>2 , patient is on anticoagulation with Xarelto #4 Chronic pain. #5 hypertension #6 acute kidney injury on chronic kidney disease unknown GFR worsened on today' s labs patient had a creatinine of 1.77 back on February 2015 patient's creatinine on this admission is peaked at 3.07 and has improved to 2.62 on todays labs, nephrology on board and appreciate rec. For the above noted conditions please resume home medications hold Bumex & ARB and due to underlying kidney injury #7elevated total creatinine kinase Rhabdomyolsis , could be medical multifactorial due to cardiological issues versus statin induced myopathy continue to hold Statin and repeat CPK levels today. Morbid obesity patient counseled on lifestyle[ modifications and proper eating habits Further recommendations follow-up in his overall progress. Disposition anticipate discharge in the next 24-48 hours
--- NOTE | 2016-12-28 15:49 | P.PN ---
Subjective Progress Note Date: 12/28/16 This is a 71-year-old male who is admitted for bilateral lower extremity pain. Patient states the pain has slightly improved today but he complains of lower back pain today which he states is made worse by laying in bed all day. Patient states he has a history of degenerative disc disease and chronic low back pain so these symptoms are not new for him. Patient states the pain in bilateral legs is a sharp and shooting pain. Patient denies any numbness or tingling in bilateral lower extremities. Patient states he does have pain in bilateral knees but reports that his range of motion has improved slightly today. Patient denies any new complaints today. Objective - Vital Signs Vital signs: Vital Signs Temp 97.7 F 12/28/16 07:00 Pulse 100 12/28/16 07:00 Resp 18 12/28/16 07:00 BP 149/74 12/28/16 07:00 Pulse Ox 94 L 12/28/16 08:58 Intake & Output 12/27/16 12/28/16 12/28/16 18:59 06:59 18:59 Intake Total 1490 50 Output Total 300 Balance 1490 -250 Weight 132 kg Intake: IV 50 50 Piperacillin-Tazobactam 3 50 50 .375 gm In Dextrose/Water 1 50ml.bag @ 12.5 mls/hr IVPB Q8HR [facility] Rx#: [id number] Oral 1440 Output: Urine 300 Other: Voiding Method Urinal Urinal # Voids 3 1 - Exam On exam of bilateral lower extremities there are healing wounds to the right lower leg. There is a mild effusion of the right knee with no erythema or warmth. Patient has limited range of motion of the right lower extremity due to pain and swelling in the knee. There is generalized tenderness to palpation of the right knee. Calf is soft and nontender. Patient is able to do a straight leg raise with the right lower extremity. On exam of the left lower extremity there is minimal effusion of the left knee. Calf is soft and nontender. Limited range of motion of the left lower extremity due to pain and swelling. Calf is soft and nontender. Neurovascular status and circulatory status are intact bilaterally. - Labs CBC & Chem 7: 12/28/16 06:51 12/28/16 06:51 Labs: Abnormal Lab Results - Last 24 Hours (Table) 12/27/16 12/28/16 12/28/16 Range/Units 12:03 06:51 06:51 WBC 11.4 H (3.8-10.6) k/uL RBC 3.27 L (4.30-5.90) m/uL Hgb 10.4 L (13.0-17.5) gm/dL Hct 32.3 L (39.0-53.0) % BUN 51 H (9-20) mg/dL Creatinine 2.62 H (0.66-1.25) mg/dL Glucose 141 H (74-99) mg/dL Magnesium 2.4 H (1.6-2.3) mg/dL Total Bilirubin 1.6 H (0.2-1.3) mg/dL AST 228 H (17-59) U/L Total Creatine Kinase 6182 H (55-170) U/L CK-MB (CK-2) 27.2 H* (0.0-2.4) ng/mL Troponin I 0.057 H* (0.000-0.034) ng/mL Albumin 3.3 L (3.5-5.0) g/dL Assessment and Plan (1) Cellulitis of right lower extremity Current Visit: Yes Status: Acute Code(s): L03.115 - CELLULITIS OF RIGHT LOWER LIMB SNOMED Code(s): 960694992 Plan: #1. Rest, ice, compression and elevation of bilateral lower extremities. #2. No surgical intervention planned at this time. Will continue to follow the patient closely.
[2016-12-28] MEDS: DOXAZOSIN 4 MG TAB PO SCH (22:42)
[2016-12-28] MEDS: QUEtiapine 25 MG TAB PO SCH (22:42)
[2016-12-28] MEDS: RIVAROXABAN 15 MG TAB PO SCH (22:42)
[2016-12-29] MEDS: PIPERACILLIN-TAZOBACTAM 3.375 GM in DEXTROSE/WATER 1 50ML.BAG IVPB SCH ×2 (02:15→11:59)
[2016-12-29 07:51] LABS: CH 31.6; CHCM 32.2; HCT 34.8 % (39.0-53.0); HDW 2.29; MCH 31.1 pg (25.0-35.0); MCHC 31.7 g/dL (31.0-37.0); MCV 98.3 fL (80.0-100.0); Mean Platelet Volume 7.5; RBC 3.54 m/uL (4.30-5.90); RDW 13.7 % (11.5-15.5); WBC 12.1 k/uL (3.8-10.6)
[2016-12-29] MEDS: PANTOPRAZOLE 40 MG TABLET PO SCH (08:19)
[2016-12-29] MEDS: LORazepam 1 MG TAB PO SCH ×2 (08:19→20:43)
[2016-12-29] MEDS: ISOSORBIDE MONONITRATE ER 60 MG TAB.ER.24H PO SCH (08:19)
[2016-12-29] MEDS: FLUoxetine HCL 20 MG CAP PO SCH (08:19)
[2016-12-29] MEDS: LABETALOL 200 MG TAB PO SCH ×2 (08:20→20:44)
[2016-12-29] MEDS: predniSONE 20 MG TAB PO SCH (08:20)
[2016-12-29] MEDS: ASPIRIN 81 MG PO SCH (08:20)
[2016-12-29] MEDS: RANOLAZINE 500 MG TAB.ER.12H PO SCH ×2 (08:21→20:45)
--- NOTE | 2016-12-29 08:30 | P.PN ---
Subjective Progress Note Date: 12/29/16 This is a 71-year-old male who is admitted for bilateral lower extremity pain. Patient states he is tolerating sitting up in a chair. Patient reports improvement in his lower back pain. Patient continues to complain of bilateral knee pain. Patient states he has been keeping the legs elevated when possible. Patient denies any new complaints today. Objective - Vital Signs Vital signs: Vital Signs Temp 97.7 F 12/28/16 16:08 Pulse 84 12/28/16 16:08 Resp 18 12/29/16 00:00 BP 131/59 12/28/16 16:08 Pulse Ox 94 L 12/28/16 08:58 Intake & Output 12/28/16 12/29/16 12/29/16 18:59 06:59 18:59 Intake Total 50 590 Balance 50 590 Weight 132 kg Intake: IV 50 Piperacillin-Tazobactam 3 50 .375 gm In Dextrose/Water 1 50ml.bag @ 12.5 mls/hr IVPB Q8HR [facility] Rx#: [id number] Oral 590 Other: Voiding Method Urinal # Voids 2 - Exam Patient is in no acute distress and is alert and oriented x3. Patient is sitting comfortably in a chair today. On exam of bilateral lower extremities there are healing wounds to the right lower leg. There is a mild effusion of the right knee with no erythema or warmth. Patient is able to extend the right lower extremity at the knee with mild discomfort. There is generalized tenderness to palpation of the right knee. Calf is soft and nontender. On exam of the left lower extremity there is minimal effusion of the left knee and patient is able to extend with left lower extremity at the knee. Calf is soft and nontender. Neurovascular status and circulatory status are intact bilaterally. - Labs CBC & Chem 7: 12/29/16 07:25 12/28/16 06:51 Labs: Abnormal Lab Results - Last 24 Hours (Table) 12/28/16 12/29/16 Range/Units 06:51 07:25 WBC 12.1 H (3.8-10.6) k/uL RBC 3.54 L (4.30-5.90) m/uL Hgb 11.0 L (13.0-17.5) gm/dL Hct 34.8 L (39.0-53.0) % Creatine Kinase 7713 H (55-170) U/L Assessment and Plan (1) Cellulitis of right lower extremity Current Visit: Yes Status: Acute Code(s): L03.115 - CELLULITIS OF RIGHT LOWER LIMB SNOMED Code(s): 079898427 (2) Primary osteoarthritis of knees, bilateral Current Visit: Yes Status: Acute Code(s): M17.0 - BILATERAL PRIMARY OSTEOARTHRITIS OF KNEE SNOMED Code(s): 534603276 Plan: #1. Rest, ice, compression and elevation of bilateral lower extremities. #2. No surgical intervention planned at this time. Patient may follow up as an outpatient as needed.
--- NOTE | 2016-12-29 08:47 | P.PN ---
Subjective Progress Note Date: 12/29/16 Mr. Moreno is a 71-year-old male past medical history significant for coronary artery disease with prior stents at the [facility] in [place], paroxysmal atrial fibrillation on long-term anticoagulation, hyperlipidemia, hypertension, chronic kidney disease and diastolic heart failure. Echocardiogram performed yesterday reveals preserved left ventricular systolic function with an ejection fraction 55-60%, mild left ventricular hypertrophy, mild aortic valve sclerosis, mild mitral regurgitation and mild tricuspid regurgitation. He remains in atrial fibrillation with a controlled ventricular response. Lower extremity swelling has improved and almost absent at this time. His respirations are equal and unlabored his breathing seems less labored today. He denies chest pain, palpitations, dizziness, shortness of breath or nausea. IV access has been lost and couldn't be re-established last night. No BMP available for today at this time. Pt states he plans to go to [facility] rehab facility for physical therapy, hopefully today is the tentative plan. Objective - Vital Signs Vital signs: Vital Signs Temp 97.7 F 12/28/16 16:08 Pulse 84 12/28/16 16:08 Resp 18 12/29/16 00:00 BP 131/59 12/28/16 16:08 Pulse Ox 94 L 12/28/16 08:58 Intake & Output 12/28/16 12/29/16 12/29/16 18:59 06:59 18:59 Intake Total 50 590 Balance 50 590 Weight 132 kg Intake: IV 50 Piperacillin-Tazobactam 3 50 .375 gm In Dextrose/Water 1 50ml.bag @ 12.5 mls/hr IVPB Q8HR [facility] Rx#: [id number] Oral 590 Other: Voiding Method Urinal # Voids 2 - Exam GENERAL: Well-appearing, well-nourished and in no acute distress. NECK: Supple without JVD or thyromegaly. LUNGS: Breath sounds clear to auscultation bilaterally. Respiration equal and unlabored. No wheezes, rales or rhonchi. Diminished. Not requiring oxygen anymore. HEART: Irregular rate and rhythm with systolic ejection murmur at the base, no rubs or gallops. S1 and S2 heard. EXTREMITIES: Normal range of motion, no edema. No clubbing or cyanosis. Peripheral pulses intact and strong. - Labs CBC & Chem 7: 12/29/16 07:25 12/28/16 06:51 Labs: Abnormal Lab Results - Last 24 Hours (Table) 12/28/16 12/29/16 Range/Units 06:51 07:25 WBC 12.1 H (3.8-10.6) k/uL RBC 3.54 L (4.30-5.90) m/uL Hgb 11.0 L (13.0-17.5) gm/dL Hct 34.8 L (39.0-53.0) % Creatine Kinase 7713 H (55-170) U/L Assessment and Plan Assessment: ASSESSMENT 1. Chronic paroxysmal atrial fibrillation on long-term anticoagulation with controlled ventricular response 2. History of coronary artery disease with stenting 3. History of diastolic heart failure, compensated 4. Hyperlipidemia 5. Hypertension 6. Elevated troponin, not indicative of an acute coronary event. Secondary to elevated renal function. 7. Rhabdomyolysis PLAN From cardiology perspective he is stable on current regimen. We will continue to see him on an as needed basis. Please feel free to call with any further questions or concerns. Nurse Practitioner note has been reviewed, I agree with a documented findings and plan of care. Patient was seen and examined.
[2016-12-29 08:52] LABS: Calcium 9.7 mg/dL (8.4-10.2); Magnesium 2.8 mg/dL (1.6-2.3); Phosphorus 3.7 mg/dL (2.5-4.5); Potassium 4.3 mmol/L (3.5-5.1); Total Bilirubin 1.3 mg/dL (0.2-1.3); Total Protein 7.2 g/dL (6.3-8.2)
[2016-12-29] MEDS: AMOXIC-POT CLAV 875-125MG 1 EACH TAB PO SCH ×2 (12:27→20:44)
[2016-12-29] MEDS: MULTIVITAMINS, THERA 1 EACH TAB PO SCH (12:27)
[2016-12-29] MEDS: GABAPENTIN 100 MG CAP PO SCH ×2 (12:28→20:44)
--- NOTE | 2016-12-29 12:30 | PN ---
PROGRESS NOTE Patient is seen for followup for acute kidney injury on top of chronic kidney disease. He had a hard time getting an IV last night. Patient wants to go home. He has chronic kidney disease and follows at the [facility]. However, he states that he would like to follow with Nephrology in [facility]. He will be given our contact number and we will see him as outpatient. PHYSICAL EXAMINATION: Blood pressure is 131/77, heart rate 86 per minute. Patient is afebrile. Examination of the heart S1, S2. Examination of the lungs, decreased breath sounds at the bases. Abdomen is soft, non-tender, obese. Examination of the lower extremities shows chronic skin changes. Trace edema is noted. REFINING [employer]PER[employer]OR exam is grossly intact. LABS: Sodium 145, potassium 4.3, BUN 53, serum creatinine 2.26, hemoglobin 11.0 g/dL. CK is 5737. ASSESSMENT: 1. Acute kidney injury, prerenal, currently improved. 2. Chronic kidney disease NKF stage IV, being followed at the [facility]. Patient would like to follow in [facility]. 3. Rhabdomyolysis, currently improved and off of the statins. 4. Diastolic heart failure, compensated. 5. Hypertension with chronic kidney disease, controlled. 6. Gout flareup, maintained on prednisone. PLAN: Continue off of angiotensin receptor blockers for now. Will follow up as outpatient in 1 to 2 weeks and we can resume low-dose PIOTR inhibitors versus angiotensin receptor blockers as outpatient. MMABDULAZIZL / ALFREDON: [id number] /
--- NOTE | 2016-12-29 20:12 | PN ---
PROGRESS NOTE DATE OF SERVICE: 12/29/2016 INTERVAL HISTORY: This 71-year-old gentleman was admitted with severe bilateral extremity low joint pains possible acute gouty exacerbation as well as cellulitis, also had renal failure also. The patient has significant gait dysfunction. Patient is being closely monitored. PT and OT is following the patient, possible ECF rehab. PAST MEDICAL HISTORY: Reviewed. REVIEW OF SYSTEMS: CARDIOVASCULAR: No angina. RESPIRATORY: As mentioned earlier. GI: As mentioned earlier. : No dysuria. NERVOUS SYSTEM: No numbness or weakness. CURRENT MEDICATIONS: 1. Augmentin b.i.d. 2. Aspirin 81 mg daily. 3. Cardura 8 mg q.h.s. 4. Prozac 20 mg daily. 5. Neurontin 200 mg b.i.d. 6. Imdur 60 mg daily. 7. Trandate. 8. Ativan 1.5 mg b.i.d. 9. Prednisone. 10.Oxy IR 5 mg p.o. daily. 11.Prednisone. 12.Ranexa. 13.Xarelto. 14.Requip. PHYSICAL EXAM: Patient is alert, oriented x3. Pulse is 79, blood pressure 142/60, respirations 17, temperature 97.4, pulse ox 94% on room air. HEENT: Conjunctivae normal. Oral mucosa moist. NECK: No jugular venous distention. No carotid bruit. No lymph node enlargement. CARDIOVASCULAR: S1, S2. RESPIRATORY: Breath sounds diminished in the bases. A few scattered rhonchi. No crackles. ABDOMEN: Soft, obese, nontender. No mass palpable. LEGS: Bilateral leg edema and cellulitis also present which is improving. Joint pain and deformity and swelling also present. NERVOUS SYSTEM: Higher functions as mentioned. Moves all four limbs. No focal motor deficits. LYMPHATICS: No lymphadenopathy in the neck, axillae or groin. SKIN: Cellulitis present. LAB INVESTIGATIONS: Creatine kinase 6182, NT proBNP is 5880 and the AST is 202 and ALT is 82. ASSESSMENT: 1. Acute bilateral leg pain and severe acute gouty arthritis acute exacerbation. 2. Severe gait dysfunction. 3. Bilateral leg cellulitis. 4. Possible acute rhabdomyolysis. 5. Chronic pain. 6. Hypertension. 7. Acute kidney injury with acute renal failure. 8. Increased WBC. 9. Elevated AST and ALT, possible hepatitis. RECOMMENDATION AND DISCUSSION: In this 71-year-old gentleman who presented with multiple complex medical issues, will monitor the patient closely. Continue the current management and symptomatic treatment. Otherwise at this time I recommend continue with current medications. Add small dose of gabapentin. Allopurinol may be added later. The patient appears to be responding to steroids. PT, OT evaluation. Possible ECF rehab. Antibiotics are continued. Overall prognosis is extremely guarded because of multiple complex medical issues as mentioned earlier. Further recommendations to follow. Discussed with the patient who understands and agrees. Discussed with family as well. Possible ECF rehab. SANDY / ALFREDON: [id number] /
[2016-12-29] MEDS: RIVAROXABAN 15 MG TAB PO SCH (20:45)
[2016-12-29] MEDS: DOXAZOSIN 4 MG TAB PO SCH (20:45)
[2016-12-29] MEDS: QUEtiapine 25 MG TAB PO SCH (20:45)
[2016-12-29] MEDS: HYDROcodone/APAP 7.5-325MG 1 EACH TAB PO PRN (22:10)
[2016-12-29] MEDS: MORPHINE SULFATE 10 MG/ML SYRINGE IVP PRN (23:20)
[2016-12-30 07:08] LABS: Basophils % (A) 0 %; CH 31.1; CHCM 31.3; Eosinophils # (A) 0.1 k/uL (0-0.7); Eosinophils % (A) 1 %; HCT 33.6 % (39.0-53.0); HGB 10.5 gm/dL (13.0-17.5); Luc # (Auto) 0.24; Luc % (Auto) 2; Lymphocytes % (A) 10 %; MCH 31.4 pg (25.0-35.0); MCHC 31.4 g/dL (31.0-37.0); Mean Platelet Volume 7.4; Monocytes # (A) 0.7 k/uL (0-1.0); Monocytes % (A) 7 %; Neutrophils # (A) 8.3 k/uL (1.3-7.7); Neutrophils % (A) 80 %; RBC 3.36 m/uL (4.30-5.90); RDW 13.5 % (11.5-15.5); WBC 10.4 k/uL (3.8-10.6); WBC (Perox) 10.35
[2016-12-30] MEDS: MORPHINE SULFATE 10 MG/ML SYRINGE IVP PRN ×2 (07:09→10:42)
[2016-12-30 07:18] LABS: Calcium 9.1 mg/dL (8.4-10.2); Total Bilirubin 1.1 mg/dL (0.2-1.3); Total Protein 6.6 g/dL (6.3-8.2)
[2016-12-30 07:38] LABS: Phosphorus 4.5 mg/dL (2.5-4.5); Potassium 4.7 mmol/L (3.5-5.1)
[2016-12-30 07:39] LABS: Magnesium 2.5 mg/dL (1.6-2.3)
[2016-12-30] MEDS: HYDROcodone/APAP 7.5-325MG 1 EACH TAB PO PRN (09:24)
[2016-12-30] MEDS: AMOXIC-POT CLAV 875-125MG 1 EACH TAB PO SCH ×2 (09:53→21:12)
[2016-12-30] MEDS: ASPIRIN 81 MG PO SCH (09:53)
[2016-12-30] MEDS: ISOSORBIDE MONONITRATE ER 60 MG TAB.ER.24H PO SCH (09:54)
[2016-12-30] MEDS: FLUoxetine HCL 20 MG CAP PO SCH (09:54)
[2016-12-30] MEDS: LABETALOL 200 MG TAB PO SCH ×2 (09:54→21:11)
[2016-12-30] MEDS: GABAPENTIN 100 MG CAP PO SCH ×2 (09:54→21:11)
[2016-12-30] MEDS: RANOLAZINE 500 MG TAB.ER.12H PO SCH ×2 (09:57→21:11)
[2016-12-30] MEDS: predniSONE 20 MG TAB PO SCH (09:57)
[2016-12-30] MEDS: PANTOPRAZOLE 40 MG TABLET PO SCH (10:02)
[2016-12-30] MEDS: LORazepam 1 MG TAB PO SCH ×2 (10:26→21:10)
[2016-12-30] MEDS: MULTIVITAMINS, THERA 1 EACH TAB PO SCH (11:43)
--- NOTE | 2016-12-30 12:08 | P.PN ---
Subjective Patient seen in follow-up for acute kidney injury on chronic kidney disease. Patient has chronic kidney disease stage IV likely secondary to nephrosclerosis. He follows with supervisor adult education out of [facility]. Patient presented after his legs gave out a few days ago. Patient felt quite weak and presented to the hospital. Renal function is improved with creatinine at 1.8 today. Cozaar and diuretics are currently held. He denies any chest pain or shortness of breath. He has been voiding. No hematuria or dysuria. Complains of arthritic pain in his knee. Vital signs are stable. General: The patient appeared well nourished and normally developed. HEENT: Head exam is unremarkable. Neck is without jugular venous distension. LUNGS: Lungs are clear to auscultation and percussion. Breath sounds decreased. HEART: Rate and Rhythm are regular. First and second heart sounds normal. No murmurs, rubs or gallops. ABDOMEN: Abdominal exam reveals normal bowel sounds. Non-tender and non- distended. No evidence of peritonitis. EXTREMITITES: No clubbing, cyanosis, or edema. Objective - Vital Signs Vital signs: Vital Signs Temp 96.8 F L 12/30/16 08:40 Pulse 76 12/30/16 11:25 Resp 18 12/30/16 11:25 BP 148/66 12/30/16 08:40 Pulse Ox 96 12/30/16 08:40 Intake & Output 12/29/16 12/30/16 12/30/16 18:59 06:59 18:59 Intake Total 300 940 Output Total 1000 250 Balance 300 -60 -250 Weight 132 kg Intake: Oral 300 940 Output: Urine 1000 250 Other: Voiding Method Urinal Urinal Urinal - Labs CBC & Chem 7: 12/30/16 06:30 12/30/16 06:30 Labs: Abnormal Lab Results - Last 24 Hours (Table) 12/30/16 12/30/16 Range/Units 06:30 06:30 RBC 3.36 L (4.30-5.90) m/uL Hgb 10.5 L (13.0-17.5) gm/dL Hct 33.6 L (39.0-53.0) % Neutrophils # 8.3 H (1.3-7.7) k/uL BUN 55 H (9-20) mg/dL Creatinine 1.80 H (0.66-1.25) mg/dL Glucose 111 H (74-99) mg/dL Magnesium 2.5 H (1.6-2.3) mg/dL AST 121 H (17-59) U/L ALT 91 H (21-72) U/L Alkaline Phosphatase 139 H (38-126) U/L Creatine Kinase 2093 H (55-170) U/L Assessment and Plan Plan: Assessment: #1. Nonoliguric acute kidney injury mostly prerenal from hemodynamic instability and diuresis. Creatinine peaked at 3.07 this admission and is down to 1.8 today. Urinalysis is quite benign. No evidence of hydronephrosis. #2. Diastolic CHF. Currently compensated. #3. Chronic kidney disease stage IV likely secondary to nephrosclerosis. Patient follows with supervisor adult education out of the hospital. #4. Hypertension with chronic kidney disease. Controlled. #5. Rhabdomyolysis. CK level greater than 7000 this admission. Statin has been discontinued. Levels trending down. #6. Acute gout maintained on prednisone. Plan: Continue to hold off on Cozaar and diuretics for now. Encouraged oral intake. Avoid nephrotoxic agents and hypotensive episodes. Repeat electrolytes in the morning.
[2016-12-30] MEDS: COLCHICINE 0.6 MG TAB PO SCH (19:19)
[2016-12-30] MEDS: ALLOPURINOL 100 MG TAB PO SCH (19:19)
--- NOTE | 2016-12-30 20:31 | PN ---
PROGRESS NOTE DATE OF SERVICE: 12/30/2016 INTERVAL HISTORY: This 71-year-old gentleman was admitted with bilateral lower joint swelling, possible acute gout exacerbation also cellulitis also. The patient also had renal failure, which is improving significantly. No chest pain. No palpitations. No fever. PAST MEDICAL HISTORY: Reviewed. REVIEW OF SYSTEMS: Cardiovascular: No angina or palpitations. Respiration: No cough. GI: As mentioned earlier. no dysuria. Central nervous system: No numbness or weakness. CURRENT MEDICATIONS ARE: Reviewed and include: 1. [place] 7.5 q.6h p.r.n. 2. Augmentin 875 mg p.o. b.i.d. 3. Aspirin 81 mg. 4. Cardura 8 mg q.h.s. 5. Prozac 20 mg b.i.d. 6. Neurontin 100 mg b.i.d. 7. Imdur 60 mg daily. 8. Trandate 600 mg p.o. b.i.d. 9. Narcan 0.2 mg daily p.r.n. 10.Nitrostat 0.5 sublingual p.r.n. 11.Oxy-IR. 12.Protonix 40 mg daily. 13.Prednisone 40 mg daily. 14.Seroquel 25 mg p.o. q.h.s. 15.Xanax 0.5 mg p.o. b.i.d. 16.Xarelto 10 mg p.o. q.h.s. 17.Requip 0.5 mg p.o. b.i.d. PHYSICAL EXAM: Patient is alert, oriented x3. Pulse 64, blood pressure 150/70, respiration 18, temperature 98.2, pulse ox 94% on room air. HEENT: Conjunctivae normal. NECK: No jugular venous distention. Cardiovascular: S1, S2 muffled. RESPIRATORY: Breath sounds diminished in the bases, a few scattered rhonchi and crackles. ABDOMEN: Soft, obese, nontender. LEGS: Bilateral leg edema and swelling. Nervous system: No focal deficits. LABS: WBC 10.2, hemoglobin 10.5, creatinine is 1.80. AST is 121, ALT is 91. ASSESSMENT: 1. Acute bilateral leg pain, multifactorial with acute severe gouty arthritis, acute exacerbation, present on admission. 2. Severe gait dysfunction. 3. Bilateral leg cellulitis on IV antibiotics. 4. Possible acute rhabdomyolysis multifactorial. 5. Acute renal failure with acute tubular necrosis, multifactorial with possibly chronic kidney disease stage 3. Improving. 6. Chronic pain syndrome. 7. Hypertension. 8. Increased WBC. 9. Elevated AST, ALT, possibly hepatitis. RECOMMENDATIONS AND DISCUSSION: In this 71-year-old gentleman who presented with multiple complex medical issues, we will monitor the patient closely, continue the current medications. Continue symptomatic treatment. At this time, I would recommend to monitor creatinine closely. Avoid nephrotoxic medications, but however, I would recommend continue with steroids and also add Allopurinol and also cultures and also to the current regimen. Guarded prognosis because of multiple complex medical issues. Further recommendations to follow. See orders for details. MMODL / IJN: [id number] /
[2016-12-30] MEDS: DOXAZOSIN 4 MG TAB PO SCH (21:09)
[2016-12-30] MEDS: RIVAROXABAN 15 MG TAB PO SCH (21:11)
[2016-12-30] MEDS: QUEtiapine 25 MG TAB PO SCH (21:11)
[2016-12-31] MEDS: MORPHINE SULFATE 10 MG/ML SYRINGE IVP PRN ×2 (03:10→19:15)
[2016-12-31] MEDS: HYDROcodone/APAP 7.5-325MG 1 EACH TAB PO PRN ×2 (03:27→19:15)
[2016-12-31 07:12] LABS: Basophils % (A) 0 %; CH 32.2; CHCM 31.9; Eosinophils # (A) 0.1 k/uL (0-0.7); Eosinophils % (A) 1 %; HCT 31.9 % (39.0-53.0); HDW 2.38; HGB 9.9 gm/dL (13.0-17.5); Luc # (Auto) 0.14; Luc % (Auto) 1; Lymphocytes # (A) 0.9 k/uL (1.0-4.8); Lymphocytes % (A) 9 %; MCH 31.5 pg (25.0-35.0); MCHC 31.1 g/dL (31.0-37.0); MCV 101.2 fL (80.0-100.0); Mean Platelet Volume 7.3; Monocytes # (A) 0.7 k/uL (0-1.0); Monocytes % (A) 6 %; Neutrophils # (A) 8.4 k/uL (1.3-7.7); Neutrophils % (A) 83 %; RBC 3.15 m/uL (4.30-5.90); RDW 12.6 % (11.5-15.5); WBC 10.2 k/uL (3.8-10.6)
[2016-12-31 07:36] LABS: Calcium 8.9 mg/dL (8.4-10.2); Magnesium 2.5 mg/dL (1.6-2.3); Phosphorus 3.8 mg/dL (2.5-4.5); Potassium 4.9 mmol/L (3.5-5.1); Total Bilirubin 0.7 mg/dL (0.2-1.3); Total Protein 6.1 g/dL (6.3-8.2)
[2016-12-31] MEDS: GABAPENTIN 100 MG CAP PO SCH ×2 (09:28→20:59)
[2016-12-31] MEDS: FLUoxetine HCL 20 MG CAP PO SCH (09:28)
[2016-12-31] MEDS: AMOXIC-POT CLAV 875-125MG 1 EACH TAB PO SCH ×2 (09:28→20:58)
[2016-12-31] MEDS: ISOSORBIDE MONONITRATE ER 60 MG TAB.ER.24H PO SCH (09:28)
[2016-12-31] MEDS: ASPIRIN 81 MG PO SCH (09:28)
[2016-12-31] MEDS: LABETALOL 200 MG TAB PO SCH ×2 (09:30→20:58)
[2016-12-31] MEDS: PANTOPRAZOLE 40 MG TABLET PO SCH (09:31)
[2016-12-31] MEDS: predniSONE 20 MG TAB PO SCH (09:31)
[2016-12-31] MEDS: RANOLAZINE 500 MG TAB.ER.12H PO SCH ×2 (09:33→20:59)
[2016-12-31] MEDS: ALLOPURINOL 100 MG TAB PO SCH (09:34)
[2016-12-31] MEDS: COLCHICINE 0.6 MG TAB PO SCH (09:34)
[2016-12-31] MEDS: LORazepam 1 MG TAB PO SCH ×2 (09:37→20:56)
--- NOTE | 2016-12-31 10:24 | P.PN ---
Subjective Patient seen in follow-up for acute kidney injury on chronic kidney disease. Patient has chronic kidney disease stage IV likely secondary to nephrosclerosis. He follows with bicycle rental clerk out of [facility]. Patient presented after his legs gave out a few days ago. Patient felt quite weak and presented to the hospital. Renal function is improved with creatinine at 1.72 today. Cozaar and diuretics are currently held. He denies any chest pain or shortness of breath. He has been voiding. No hematuria or dysuria. Complains of arthritic pain in his knee and is also being treated for acute gout. Vital signs are stable. General: The patient appeared well nourished and normally developed. HEENT: Head exam is unremarkable. Neck is without jugular venous distension. LUNGS: Lungs are clear to auscultation and percussion. Breath sounds decreased. HEART: Rate and Rhythm are regular. First and second heart sounds normal. No murmurs, rubs or gallops. ABDOMEN: Abdominal exam reveals normal bowel sounds. Non-tender and non- distended. No evidence of peritonitis. EXTREMITITES: No clubbing, cyanosis, or edema. Chronic skin cages noted. Left foot is tender to touch. Objective - Vital Signs Vital signs: Vital Signs Temp 97.2 F L 12/31/16 07:42 Pulse 93 12/31/16 07:42 Resp 14 12/31/16 07:42 BP 142/74 12/31/16 07:42 Pulse Ox 97 12/31/16 08:01 Intake & Output 12/30/16 12/31/16 12/31/16 18:59 06:59 18:59 Intake Total 720 590 Output Total 250 300 Balance 470 290 Weight 132 kg 129.9 kg Intake: Oral 720 590 Output: Urine 250 300 Other: Voiding Method Urinal Urinal # Voids 1 # Bowel Movements 1 - Labs CBC & Chem 7: 12/31/16 06:46 12/31/16 06:46 Labs: Abnormal Lab Results - Last 24 Hours (Table) 12/31/16 12/31/16 Range/Units 06:46 06:46 RBC 3.15 L (4.30-5.90) m/uL Hgb 9.9 L (13.0-17.5) gm/dL Hct 31.9 L (39.0-53.0) % MCV 101.2 H (80.0-100.0) fL Neutrophils # 8.4 H (1.3-7.7) k/uL Lymphocytes # 0.9 L (1.0-4.8) k/uL BUN 50 H (9-20) mg/dL Creatinine 1.72 H (0.66-1.25) mg/dL Glucose 119 H (74-99) mg/dL Magnesium 2.5 H (1.6-2.3) mg/dL AST 64 H (17-59) U/L ALT 85 H (21-72) U/L Creatine Kinase 740 H (55-170) U/L Total Protein 6.1 L (6.3-8.2) g/dL Albumin 3.1 L (3.5-5.0) g/dL Assessment and Plan Plan: Assessment: #1. Nonoliguric acute kidney injury mostly prerenal from hemodynamic instability and diuresis. Creatinine peaked at 3.07 this admission and is down to 1.72 today. Urinalysis is quite benign. No evidence of hydronephrosis. #2. Diastolic CHF. Currently compensated. #3. Chronic kidney disease stage IV likely secondary to nephrosclerosis. Patient follows with bicycle rental clerk out of the hospital. #4. Hypertension with chronic kidney disease. Controlled. #5. Rhabdomyolysis. CK level greater than 7000 this admission. Statin has been discontinued. Levels trending down. #6. Acute gout maintained on prednisone and allopurinol. Colchicine was also added. Plan: Continue to hold off on Cozaar and diuretics for now. Encouraged oral intake. Avoid nephrotoxic agents and hypotensive episodes. Repeat electrolytes in the morning. No changes from nephrology standpoint.
[2016-12-31] MEDS: MULTIVITAMINS, THERA 1 EACH TAB PO SCH (11:57)
[2016-12-31] MEDS ORDERED: TETRAHYDROZOLINE 0.05% OPHTH DROPS 15 ML BTL BOTH EYES PRN (17:38)
--- NOTE | 2016-12-31 18:29 | PN ---
PROGRESS NOTE DATE OF SERVICE: 12/31/2016. INTERVAL HISTORY: This 71-year-old gentleman admitted with multiple medical problems including acute renal failure, history of acute gout and cellulitis is being closely monitored. The renal functions improved significantly. Patient started on colchicine and allopurinol yesterday. No chest pain. No palpitations. No fever. PHYSICAL EXAM: Alert and oriented times three. Pulse 73, blood pressure 142/74, respiration 14, temperature is 97.2, pulse ox 98%. HEENT: Conjunctivae normal. Oral mucosa moist. Neck is no jugular venous distention. No carotid bruit. No lymph node enlargement. Cardiovascular system: No S3, no S4. Respiratory: Breath sounds diminished in the bases. No rhonchi. No crackles. ABDOMEN: Soft, nontender. No mass palpable. LEGS: Bilateral leg edema and swelling and tenderness also present. Nervous system: No focal deficits. LABS: At this time shows labs shows WBC 10.2, hemoglobin is 10.9, AST/ALT is improving. Albumin is 3.1. ASSESSMENT: 1. Acute bilateral leg pain, multifactorial with acute severe gouty arthritis with acute exacerbation, present on admission. 2. Severe gait dysfunction. 3. Bilateral leg cellulitis on IV antibiotics. 4. Possible acute rhabdomyolysis, multifactorial. 5. Acute renal failure with acute tubular necrosis, multifactorial, with possible chronic kidney disease stage 3. Baseline is improving. 6. Chronic pain syndrome. 7. Hypotension. 8. Increased WBC. 9. Elevated AST, ALT, possibly hepatitis. DISCUSSION AND RECOMMENDATIONS: I recommend to continue current medications and symptomatic treatment. Monitor closely. We will monitor creatinine closely. Recommend the patient continue with colchicine and allopurinol. Discussed with the family. Discussed with the patient. Further recommendations to follow. See orders for further details. MMODL / IJN: [id number] /
[2016-12-31] MEDS: RIVAROXABAN 15 MG TAB PO SCH (20:59)
[2016-12-31] MEDS: DOXAZOSIN 4 MG TAB PO SCH (20:59)
[2016-12-31] MEDS: QUEtiapine 25 MG TAB PO SCH (21:00)
[2017-01-01] MEDS: MORPHINE SULFATE 10 MG/ML SYRINGE IVP PRN (05:11)
[2017-01-01 07:42] LABS: Calcium 9.1 mg/dL (8.4-10.2); Potassium 4.7 mmol/L (3.5-5.1); Total Bilirubin 0.7 mg/dL (0.2-1.3); Total Protein 6.7 g/dL (6.3-8.2)
[2017-01-01 07:44] LABS: Basophils % (A) 0 %; CHCM 31.5; Eosinophils # (A) 0.1 k/uL (0-0.7); Eosinophils % (A) 1 %; HCT 36.1 % (39.0-53.0); HDW 2.43; Luc # (Auto) 0.14; Luc % (Auto) 1; Lymphocytes # (A) 1.3 k/uL (1.0-4.8); Lymphocytes % (A) 11 %; MCHC 30.4 g/dL (31.0-37.0); Monocytes # (A) 0.7 k/uL (0-1.0); Monocytes % (A) 6 %; Neutrophils # (A) 9.6 k/uL (1.3-7.7); Neutrophils % (A) 81 %; RBC 3.53 m/uL (4.30-5.90); RDW 12.6 % (11.5-15.5); WBC 11.9 k/uL (3.8-10.6); WBC (Perox) 12.35
[2017-01-01 07:53] VITALS: PULSE 69; TEMP 97.2
[2017-01-01] MEDS: PANTOPRAZOLE 40 MG TABLET PO SCH (07:53)
[2017-01-01] MEDS: AMOXIC-POT CLAV 875-125MG 1 EACH TAB PO SCH (07:53)
[2017-01-01] MEDS: GABAPENTIN 100 MG CAP PO SCH (07:54)
[2017-01-01] MEDS: FLUoxetine HCL 20 MG CAP PO SCH (07:54)
[2017-01-01] MEDS: COLCHICINE 0.6 MG TAB PO SCH (07:54)
[2017-01-01] MEDS: ASPIRIN 81 MG PO SCH (07:54)
[2017-01-01] MEDS: ISOSORBIDE MONONITRATE ER 60 MG TAB.ER.24H PO SCH (07:55)
[2017-01-01] MEDS: ALLOPURINOL 100 MG TAB PO SCH (07:55)
[2017-01-01] MEDS: predniSONE 20 MG TAB PO SCH (07:56)
[2017-01-01] MEDS: LORazepam 1 MG TAB PO SCH (08:07)
[2017-01-01] MEDS: LABETALOL 200 MG TAB PO SCH (08:26)
[2017-01-01] MEDS: RANOLAZINE 500 MG TAB.ER.12H PO SCH (08:26)
[2017-01-01] MEDS: HYDROcodone/APAP 7.5-325MG 1 EACH TAB PO PRN (11:15)
[2017-01-01 11:55] VITALS: BMI 42.2
[2017-01-01 11:57] VITALS: BP 159/72; RESP 18
[2017-01-01] MEDS: MULTIVITAMINS, THERA 1 EACH TAB PO SCH (12:16)
--- NOTE | 2017-01-01 12:33 | P.DS ---
Providers Date of admission: 12/25/16 19:24 Attending physician: Candida Palomino Consults: 12/26/16 17:09 Consult Physician Routine Consulting Provider: Macie Rios Consult Reason/Comments: kidney failure Do you want consulting provider notified?: Yes Primary care physician: Jerod Braun MD Hospital Course: 71-year-old gentleman with a past medical history multiple medical problems was admitted with acute bilateral leg cellulitis, gouty arthritis and as well as acute renal failure which is prerenal in nature. Patient treated symptomatically. Patient was given steroids.. Patient improved significantly. Creatinine improved 1.5. On exam vitals stable. Cardio S1 and S2 normal. Abdomen soft nontender. Nervous system no focal deficit. Bilateral leg cellulitis present. I would recommended allopurinol and as well as colchicine to be continued as a maintenance. To be adjusted to control the uric acid levels in the outpatient setting. Tapering dose of steroids also given. Total time taken is 35 minutes. Final diagnosis 1. Acute bilateral leg pain multifactorial with acute severe gouty arthritis with acute exacerbation present on admission. 2. Severe gait dysfunction. 3. Bilateral leg cellulitis on IV antibiotics. 4. Possible acute rhabdomyolysis multifactorial. 5. Acute renal failure with acute tubular necrosis multifactorial with a possible chronic kidney disease stage III on the background. 6. Chronic pain syndrome. 7. Chronic DJD lumbar pain sciatica. 7. Hypertension. 8. Increased WBC. 9. Elevated AST ALT possibly hepatitis. Patient Condition at Discharge: Stable Plan - Discharge Summary Discharge Rx Participant: Yes New Discharge Prescriptions: New Allopurinol [Zyloprim] 100 mg PO DAILY tab Amoxic-Pot Clav 875-125Mg [Augmentin 875-125] 1 each PO Q12HR #10 tab Colchicine [Colcrys] 0.6 mg PO DAILY tab Gabapentin [Neurontin] 100 mg PO BID cap HYDROcodone/APAP 7.5-325MG [[place] 7.5-325] 1 each PO Q6H PRN #15 tab PRN Reason: Pain LORazepam [Ativan] 1.5 mg PO BID #20 tab Multivitamins, Thera [Multivitamin (formulary)] 1 each PO DAILY@1200 tab predniSONE 10 mg PO DIRECTED #30 tab Ranolazine [Ranexa] 500 mg PO BID tab.er.12h Continue FLUoxetine HCL [PROzac] 20 mg PO DAILY Aspirin 81 mg PO DAILY Labetalol HCl [Trandate] 600 mg PO BID Terazosin [Hytrin] 8 mg PO HS QUEtiapine [SEROquel] 25 mg PO HS Isosorbide Mononitrate ER [Imdur] 60 mg PO DAILY Rivaroxaban [Xarelto] 15 mg PO HS rOPINIRole HCL [Requip] 0.5 mg PO TID Nitroglycerin Sl Tabs [Nitrostat] 0.4 mg SUBLINGUAL Q5M PRN PRN Reason: Chest Pain Atorvastatin [Lipitor] 20 mg PO DAILY Omeprazole 20 mg PO DAILY oxyCODONE HCL [Roxicodone] 5 mg PO BID PRN #10 tablet PRN Reason: Pain Discontinued Ranolazine [Ranexa] 1,000 mg PO BID Bumetanide [BUMEX] 4 mg PO DAILY Losartan Potassium [Cozaar] 100 mg PO DAILY LORazepam [Ativan] 1 mg PO TID PRN PRN Reason: Anxiety traZODone HCL 100 mg PO HS PRN PRN Reason: Insomnia Discharge Medication List Aspirin 81 mg PO DAILY 07/03/13 [History] FLUoxetine HCL [PROzac] 20 mg PO DAILY 07/03/13 [History] Labetalol HCl [Trandate] 600 mg PO BID 07/03/13 [History] QUEtiapine [SEROquel] 25 mg PO HS 12/25/13 [History] Terazosin [Hytrin] 8 mg PO HS 12/25/13 [History] Isosorbide Mononitrate ER [Imdur] 60 mg PO DAILY 03/11/15 [History] Rivaroxaban [Xarelto] 15 mg PO HS 04/20/16 [History] Atorvastatin [Lipitor] 20 mg PO DAILY 12/25/16 [History] Nitroglycerin Sl Tabs [Nitrostat] 0.4 mg SUBLINGUAL Q5M PRN 12/25/16 [History] Omeprazole 20 mg PO DAILY 12/25/16 [History] rOPINIRole HCL [Requip] 0.5 mg PO TID 12/25/16 [History] Allopurinol [Zyloprim] 100 mg PO DAILY tab 01/01/17 [Rx] Amoxic-Pot Clav 875-125Mg [Augmentin 875-125] 1 each PO Q12HR #10 tab 01/01/17 [ Rx] Colchicine [Colcrys] 0.6 mg PO DAILY tab 01/01/17 [Rx] Gabapentin [Neurontin] 100 mg PO BID cap 01/01/17 [Rx] HYDROcodone/APAP 7.5-325MG [[place] 7.5-325] 1 each PO Q6H PRN #15 tab 01/01/17 [ Rx] LORazepam [Ativan] 1.5 mg PO BID #20 tab 01/01/17 [Rx] Multivitamins, Thera [Multivitamin (formulary)] 1 each PO DAILY@1200 tab [Rx] Ranolazine [Ranexa] 500 mg PO BID tab.er.12h 01/01/17 [Rx] oxyCODONE HCL [Roxicodone] 5 mg PO BID PRN #10 tablet 01/01/17 [Rx] predniSONE 10 mg PO DIRECTED #30 tab 01/01/17 [Rx] Follow up Appointment(s)/Referral(s): Jerod Braun MD [Primary Care Provider] - 1 Week (After DC from [facility]) David Nuñez MD [STAFF PHYSICIAN] - 3 Days (While at [facility]) Ehsan Barrientos DO [STAFF PHYSICIAN] - 1 Week Dioni Pereira DO [Doctor of Osteopathic Medicine] - As Needed Activity/Diet/Wound Care/Special Instructions: DIet: cardiac Activity: As tolerated no dressings to legs, open to air CBC, BMP in 3 days. Cozaar and diuretics currently on hold as per nephrology. Discharge Disposition: TRANSFER TO SNF/ECF
== END 2017-01-01 14:25 | DRG 553 ==
LOC: EC 16:53 → 5MS5E 19:24
PROVIDERS: ADMIT Internal Medicine; ATTEND Internal Medicine
DX: M10.9 Gout, unspecified (principal); N17.0 Acute kidney failure with tubular necrosis; N18.4 Chronic kidney disease, stage 4 (severe); L03.115 Cellulitis of right lower limb; M62.82 Rhabdomyolysis; I13.0 Hypertensive heart and chronic kidney disease with heart failure and stage 1 through stage 4 chronic kidney disease, or unspecified chronic kidney disease; I50.32 Chronic diastolic (congestive) heart failure; K75.9 Inflammatory liver disease, unspecified; L03.116 Cellulitis of left lower limb; I48.0 Paroxysmal atrial fibrillation; E86.0 Dehydration; E66.01 Morbid (severe) obesity due to excess calories; F32.9 Major depressive disorder, single episode, unspecified; I08.3 Combined rheumatic disorders of mitral, aortic and tricuspid valves; E78.5 Hyperlipidemia, unspecified; G25.81 Restless legs syndrome; G89.4 Chronic pain syndrome; I25.10 Atherosclerotic heart disease of native coronary artery without angina pectoris; I25.2 Old myocardial infarction; I48.2 Chronic atrial fibrillation; M17.0 Bilateral primary osteoarthritis of knee; M54.40 Lumbago with sciatica, unspecified side; R62.7 Adult failure to thrive; W19.XXXA Unspecified fall, initial encounter; Z79.01 Long term (current) use of anticoagulants; Z79.52 Long term (current) use of systemic steroids; Z79.82 Long term (current) use of aspirin; Z79.899 Other long term (current) drug therapy; Z80.3 Family history of malignant neoplasm of breast; Z82.49 Family history of ischemic heart disease and other diseases of the circulatory system; Z95.5 Presence of coronary angioplasty implant and graft
CPT/HCPCS: 36415; 71020; 76770; 80053; 81003; 82550; 82553; 83735; 83880; 84100; 84443; 84484; 84550; 85025; 85027; 85610; 85652; 85730; 86140; 93005; 93306; 94760; 96360; 96361; 99285

== ENCOUNTER 2017-04-27 05:53 | Observation (INO) | payer MEDICARE, OTHER ==
[2017-04-27] MEDS ORDERED: SODIUM CHLORIDE 0.9% 1,000 ML IV STA ×2 (06:02)
[2017-04-27] MEDS ORDERED: HEPARIN SODIUM,PORCINE 5,000 UNIT/ML 1 ML VIAL IV ONE (06:02)
[2017-04-27] MEDS ORDERED: MORPHINE SULFATE 4 MG/ML SYRINGE IV PRN (06:02)
[2017-04-27] MEDS ORDERED: HEPARIN SODIUM,PORCINE 5,000 UNIT/ML 1 ML VIAL IV PRN (06:02)
[2017-04-27] MEDS ORDERED: NITROGLYCERIN SL TABS 0.4 MG TAB SUBLINGUAL PRN (06:02)
[2017-04-27] MEDS ORDERED: HEPARIN SOD,PORK IN 0.45% NACL 25,000 UNIT in 0.45% NACL 1 500ML.BAG IV SCH (06:15)
--- NOTE | 2017-04-27 06:15 | ED ---
General Adult HPI - General Chief complaint: Chest Pain Stated complaint: chest pain Time Seen by Provider: 04/27/17 06:02 Source: patient, family, RN notes reviewed, old records reviewed Mode of arrival: ambulatory Limitations: no limitations - History of Present Illness Initial comments: This is a 72-year-old male who presents today for evaluation regarding chest pain. Chest pain started about 4 hours prior to arrival. Patient denies recent travel history no sick contacts. No fevers mild cough no congestion. Patient does have chronic history of similar complaints. Patient sent from COPD as well as multiple cardiac abnormalities. Including atrial fibrillation. - Related Data Home Medications Medication Instructions Recorded Confirmed Aspirin 81 mg PO DAILY@2200 07/03/13 04/27/17 FLUoxetine HCL [PROzac] 20 mg PO DAILY 07/03/13 04/27/17 Labetalol HCl [Trandate] 600 mg PO BID 07/03/13 04/27/17 Terazosin [Hytrin] 8 mg PO HS@0000 12/25/13 04/27/17 Isosorbide Mononitrate ER [Imdur] 60 mg PO DAILY 03/11/15 04/27/17 Rivaroxaban [Xarelto] 15 mg PO W/SUPPER 04/20/16 04/27/17 Nitroglycerin Sl Tabs [Nitrostat] 0.4 mg SUBLINGUAL Q5M PRN 12/25/16 04/27/17 rOPINIRole HCL [Requip] 0.5 mg PO TID 12/25/16 04/27/17 Bumetanide (Unknown Dose) 2 tab PO DAILY 04/27/17 04/27/17 Colchicine [Colcrys] 0.3 mg PO BID-W/MEALS 04/27/17 04/27/17 LORazepam [Ativan] 1 mg PO TID 04/27/17 04/27/17 Potassium 99 mg PO DAILY@2200 04/27/17 04/27/17 Ranolazine [Ranexa] 1,000 mg PO BID 04/27/17 04/27/17 oxyCODONE HCL [Roxicodone] 5 mg PO TID 04/27/17 04/27/17 traZODone HCL [Desyrel] 100 mg PO HS@0000 04/27/17 04/27/17 Previous Rx's Medication Instructions Recorded Allopurinol [Zyloprim] 100 mg PO DAILY tab 01/01/17 Gabapentin [Neurontin] 100 mg PO BID cap 01/01/17 Allergies Allergy/AdvReac Type Severity Reaction Status Date / Time amlodipine AdvReac CONSTIPATIO Verified 04/27/17 07:50 N atenolol AdvReac MALE ED Verified 04/27/17 07:50 hydrochlorothiazide AdvReac RENAL Verified 04/27/17 07:50 IMPAIRMENT pravastatin AdvReac Rash/Hives Verified 04/27/17 07:50 Review of Systems ROS Statement: Those systems with pertinent positive or pertinent negative responses have been documented in the HPI. ROS Other: All systems not noted in ROS Statement are negative. Past Medical History Past Medical History: Atrial Fibrillation, Coronary Artery Disease (CAD), Heart Failure, Hyperlipidemia, Hypertension, Myocardial Infarction ([place]) Additional Past Medical History / Comment(s): ? 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 gout in past. restless leg Last Myocardial Infarction Date:: 2009 History of Any Multi-Drug Resistant Organisms: None Reported Past Surgical History: Heart Catheterization With Stent, Tonsillectomy Additional Past Surgical History / Comment(s): [id number] stents, rt hand sx to repair severed lig/tendons Past Anesthesia/Blood Transfusion Reactions: No Reported Reaction Additional Past Anesthesia/Blood Transfusion Reaction / Comment(s): clausterphobia Date of Last Stent Placement:: 2009 Past Psychological History: Depression Smoking Status: Never smoker Past Alcohol Use History: None Reported Past Drug Use History: None Reported - Past Family History Mother Family Medical History: Cancer Additional Family Medical History / Comment(s): breast cancer, heart problems was on warfarin(pt stated she bled out) Father Family Medical History: Coronary Artery Disease (CAD), Myocardial Infarction ([place] ) General Exam Limitations: no limitations General appearance: alert, anxious, in distress, obese Head exam: Present: atraumatic, normocephalic, normal inspection Eye exam: Present: normal appearance, PERRL, EOMI. Absent: scleral icterus, conjunctival injection, periorbital swelling ENT exam: Present: normal exam, mucous membranes moist Neck exam: Present: normal inspection. Absent: tenderness, meningismus, lymphadenopathy Respiratory exam: Present: respiratory distress, accessory muscle use, decreased breath sounds, prolonged expiratory. Absent: wheezes, rales, rhonchi , stridor Cardiovascular Exam: Present: regular rate, normal rhythm, normal heart sounds. Absent: systolic murmur, diastolic murmur, rubs, gallop, clicks GI/Abdominal exam: Present: soft, normal bowel sounds. Absent: distended, tenderness, guarding, rebound, rigid Extremities exam: Present: normal inspection, full ROM, normal capillary refill. Absent: tenderness, pedal edema, joint swelling, calf tenderness Back exam: Present: normal inspection Neurological exam: Present: alert, oriented X3, CN II-XII intact Psychiatric exam: Present: normal affect, normal mood Skin exam: Present: warm, dry, intact, normal color. Absent: rash Course Vital Signs 04/27/17 04/27/17 04/27/17 05:58 06:30 06:39 Temperature 98 F Pulse Rate 80 80 78 Respiratory 20 20 Rate Blood Pressure 229/98 174/72 O2 Sat by Pulse 97 94 L Oximetry 04/27/17 04/27/17 04/27/17 06:46 06:54 07:17 Temperature Pulse Rate 78 77 76 Respiratory 20 20 Rate Blood Pressure 170/74 179/76 O2 Sat by Pulse 93 L 93 L Oximetry 04/27/17 04/27/17 04/27/17 07:40 07:57 08:18 Temperature Pulse Rate 94 105 H 96 Respiratory 18 20 Rate Blood Pressure 197/86 170/77 166/70 O2 Sat by Pulse 95 94 L Oximetry 04/27/17 04/27/17 04/27/17 09:05 09:45 10:59 Temperature 98 F Pulse Rate 78 97 89 Respiratory 20 20 18 Rate Blood Pressure 177/79 165/77 185/83 O2 Sat by Pulse 94 L 94 L Oximetry 04/27/17 12:33 Temperature 98.9 F Pulse Rate 84 Respiratory 20 Rate Blood Pressure 183/83 O2 Sat by Pulse 99 Oximetry - Reevaluation(s) Reevaluation #1: 04/27/17 07:08 Patient has sewn improvement in breathing with breathing treatment and blood pressure control EKG Findings - EKG Comments: EKG Findings:: EKG shows sinus rhythm rate of 81, IL 318, QRS 96, QTc 466 Medical Decision Making - Medical Decision Making 72 male to the ER for evaluation of chest pain, significant chest pain shortness of breath hypoxia, significant CHF on exam patient given blood pressure control and breathing treatment with mild help her respiratory status, patient is borderline BiPAP, will admit patient for cardiac observation - Lab Data Result diagrams: 04/27/17 06:10 04/27/17 06:10 - Radiology Data Radiology results: report reviewed (CXR pulmonary edema), image reviewed Critical Care Time Critical Care Time: Yes Total Critical Care Time: 31 Disposition Clinical Impression: Chronic renal insufficiency, Unstable angina pectoris, CHF (congestive heart failure), Hypoxia, Bilateral leg edema Disposition: Left Against Medical Advice Condition: Fair
[2017-04-27] MEDS ORDERED: ENALAPRILAT 1.25 MG/ML 1 ML VIAL IVP STA (06:19)
[2017-04-27] MEDS ORDERED: IPRATROPIUM-ALBUTEROL 3 ML NEB INHALATION STA (06:19)
[2017-04-27] MEDS ORDERED: FUROSEMIDE 10 MG/ML 4 ML VIAL IV STA (06:37)
[2017-04-27 06:41] LABS: Basophils % (A) 0 %; Eosinophils # (A) 0.1 k/uL (0-0.7); Eosinophils % (A) 1 %; HCT 40.5 % (39.0-53.0); HGB 13.9 gm/dL (13.0-17.5); Lymphocytes # (A) 0.8 k/uL (1.0-4.8); Lymphocytes % (A) 6 %; MCH 32.2 pg (25.0-35.0); MCHC 34.2 g/dL (31.0-37.0); MCV 94.1 fL (80.0-100.0); Monocytes # (A) 0.3 k/uL (0-1.0); Monocytes % (A) 2 %; Neutrophils # (A) 11.8 k/uL (1.3-7.7); Neutrophils % (A) 91 %; Platelet Count 402 k/uL (150-450); RBC 4.31 m/uL (4.30-5.90); RDW 13.5 % (11.5-15.5)
[2017-04-27 06:50] LABS: D-Dimer 0.4 mg/L FEU (<0.60)
[2017-04-27 06:54] LABS: INR 1.3 (<1.2); Partial Thromboplastin Time 30.3 sec (22.0-30.0); Prothrombin Time 12.4 sec (9.0-12.0)
[2017-04-27 06:55] LABS: Albumin 4.3 g/dL (3.5-5.0); Calcium 9.8 mg/dL (8.4-10.2); Potassium 4.4 mmol/L (3.5-5.1); Total Bilirubin 0.5 mg/dL (0.2-1.3); Total Protein 7.3 g/dL (6.3-8.2)
[2017-04-27 07:21] LABS: Creatine Kinase MB 1.7 ng/mL (0.0-2.4); Troponin I 0.019 ng/mL (0.000-0.034)
[2017-04-27] MEDS ORDERED: METOPROLOL TARTRATE 25 MG TAB PO STA (07:52)
--- NOTE | 2017-04-27 08:01 | XR ---
EXAMINATION TYPE: XR chest 1V portable DATE OF EXAM: 04/27/2017 COMPARISON: 12/27/2016 HISTORY: Shortness of breath TECHNIQUE: Single frontal view of the chest is obtained. FINDINGS: Hyperinflation lungs with cardiomegaly and diffuse interstitial pattern. No pneumothorax o r pleural effusion. Arthropathy of the shoulders. IMPRESSION: 1. COPD with interstitial pattern correlate for interstitial pneumonitis or venous congestion.
[2017-04-27] MEDS ORDERED: LABETALOL 200 MG TAB PO SCH (12:00)
[2017-04-27] MEDS ORDERED: LORazepam 1 MG TAB PO STA (12:14)
[2017-04-27 12:35] VITALS: BP 183/83; PULSE 84; RESP 20; TEMP 98.9
[2017-04-27] MEDS ORDERED: FUROSEMIDE 10 MG/ML 4 ML VIAL IV SCH (21:00)
[2017-04-27] MEDS ORDERED: METOPROLOL TARTRATE 25 MG TAB PO SCH (21:00)
--- NOTE | 2017-04-27 22:51 | P.HPIM ---
History of Present Illness H&P Date: 04/27/17 Chief Complaint: Shortness of breath and chest pain Patient is a 72-year-old male with a known history of paroxysmal atrial fibrillation, coronary artery disease with history of 7 stent placement, CHF, hypertension, osteoarthritis and multiple other medical problems came to ER with complaints of chest pain and shortness of breath and worsening leg swelling. Chest pain is mainly retrosternal. No radiation. No associated nausea or vomiting. Patient does have underlying shortness of breath. No headache or dizziness or lightheadedness. Patient usually follows with [facility]. Patient is on home oxygen. Apparently patient has been having leg swelling. Patient does have orthopnea and could not able to lie flat. Patient usually sleeps on the change. No fever no chills. No nausea vomiting or abdominal pain. Chest x-ray showed COPD and interstitial prominence EKG showed sinus rhythm with first-degree AV block Troponin 1 negative D-dimer not elevated BNP was ordered Patient is a poor historian otherwise Review of Systems Constitutional: Patient denies any fever or chills . No generalized weakness or weight loss. Abdomen: Patient denied nausea vomiting and diarrhea and abdominal pain. Cardiovascular: Chest pain and shortness of breath. Leg swelling. No palpitations Respiratory: patient denied any cough is from production. No shortness of breath Neurologic: Patient denied any numbness or tingling headache. Musculoskeletal: Patient denies any complaints of joint swelling or deformity. Skin: Negative Psychiatric: Negative Endocrine: No heat or cold intolerance. No recent weight gain. Genitourinary: No dysuria or hematuria. All other 14 point ROS negative except the above Past Medical History Past Medical History: Atrial Fibrillation, Coronary Artery Disease (CAD), Heart Failure, CVA/TIA, Hypertension, Myocardial Infarction ([place]), Osteoarthritis ([place]) Additional Past Medical History / Comment(s): Paroxysmal Afib, renal problems in past which pt/spouse states was medication related and resolved, chronic low back pain and R sided sciatica, chronic bilateral knee pain, bulging/ deteriorated discs, gout, past bilateral lower leg cellulitis, RLS, TIA with L visual field affected, indirect agent orange exposure while in [place]. Last Myocardial Infarction Date:: 2009 History of Any Multi-Drug Resistant Organisms: None Reported Past Surgical History: Heart Catheterization With Stent, Orthopedic Surgery, Tonsillectomy Additional Past Surgical History / Comment(s): Total of 3 cardiac stents, rt hand sx to repair severed lig/tendons Past Anesthesia/Blood Transfusion Reactions: No Reported Reaction Additional Past Anesthesia/Blood Transfusion Reaction / Comment(s): clausterphobia Date of Last Stent Placement:: 2009 Smoking Status: Never smoker - Past Family History Mother Family Medical History: Cancer Additional Family Medical History / Comment(s): breast cancer, heart problems was on warfarin(pt stated she bled out and ). She in her 80s. Father Family Medical History: Coronary Artery Disease (CAD), Myocardial Infarction ([place] ) Additional Family Medical History / Comment(s): Father had his 1st CO in his 50s and then from his 2nd CO at the age of 74yrs. Medications and Allergies Home Medications Medication Instructions Recorded Confirmed Type Aspirin 81 mg PO DAILY@2200 07/03/13 04/27/17 History FLUoxetine HCL [PROzac] 20 mg PO DAILY 07/03/13 04/27/17 History Labetalol HCl [Trandate] 600 mg PO BID 07/03/13 04/27/17 History Terazosin [Hytrin] 8 mg PO HS@0000 12/25/13 04/27/17 History Isosorbide Mononitrate ER [Imdur] 60 mg PO DAILY 03/11/15 04/27/17 History Rivaroxaban [Xarelto] 15 mg PO W/SUPPER 04/20/16 04/27/17 History Nitroglycerin Sl Tabs [Nitrostat] 0.4 mg SUBLINGUAL Q5M PRN 12/25/16 04/27/17 History rOPINIRole HCL [Requip] 0.5 mg PO TID 12/25/16 04/27/17 History Allopurinol [Zyloprim] 100 mg PO DAILY tab 01/01/17 04/27/17 Rx Gabapentin [Neurontin] 100 mg PO BID cap 01/01/17 04/27/17 Rx Bumetanide (Unknown Dose) 2 tab PO DAILY 04/27/17 04/27/17 History Colchicine [Colcrys] 0.3 mg PO BID-W/MEALS 04/27/17 04/27/17 History LORazepam [Ativan] 1 mg PO TID 04/27/17 04/27/17 History Potassium 99 mg PO DAILY@2200 04/27/17 04/27/17 History Ranolazine [Ranexa] 1,000 mg PO BID 04/27/17 04/27/17 History oxyCODONE HCL [Roxicodone] 5 mg PO TID 04/27/17 04/27/17 History traZODone HCL [Desyrel] 100 mg PO HS@0000 04/27/17 04/27/17 History Allergies Allergy/AdvReac Type Severity Reaction Status Date / Time amlodipine AdvReac CONSTIPATIO Verified 04/27/17 07:50 N atenolol AdvReac MALE ED Verified 04/27/17 07:50 hydrochlorothiazide AdvReac RENAL Verified 04/27/17 07:50 IMPAIRMENT pravastatin AdvReac Rash/Hives Verified 04/27/17 07:50 Physical Exam Vitals: Vital Signs Temp Pulse Resp BP Pulse Ox 04/27/17 12:33 98.9 F 84 20 183/83 99 04/27/17 10:59 89 18 185/83 94 L 04/27/17 09:45 98 F 97 20 165/77 94 L 04/27/17 09:05 78 20 177/79 04/27/17 08:18 96 166/70 04/27/17 07:57 105 H 20 170/77 94 L 04/27/17 07:40 94 18 197/86 95 04/27/17 07:17 76 20 179/76 93 L 04/27/17 06:54 77 20 170/74 93 L 04/27/17 06:46 78 04/27/17 06:39 78 20 174/72 94 L 04/27/17 06:30 80 04/27/17 05:58 98 F 80 20 229/98 97 Intake and Output 04/27/17 04/27/17 04/27/17 06:59 14:59 22:59 Other: Weight 128.367 kg PHYSICAL EXAMINATION: Patient is lying in the bed comfortably, no acute distress, awake alert and oriented.. Morbidly obese HEENT: Normocephalic. Neck is supple. Pupils reactive. Nostrils clear. Oral cavity is moist. Ears reveal no drainage. Neck reveals no JVD, carotid bruits, or thyromegaly. CHEST EXAMINATION: Trachea is central. Symmetrical expansion. Bilateral diminished air entry. No wheezing CARDIAC: Normal S1, S2 with no gallops. No murmurs ABDOMEN: Soft. Bowel sounds normal. No organomegaly. No abdominal bruits. Extremities: 2+ edema. No clubbing or cyanosis Neurologically awake, alert, oriented x3 with well-coordinated movements. No focal deficits noted Skin: No rash or skin lesions. Psychiatric: Cooperative. Nonsuicidal Musculoskeletal: No joint swelling or deformity. Normal range of motion. Results CBC & Chem 7: 04/27/17 06:10 04/27/17 06:10 Labs: Abnormal Lab Results - Last 24 Hours (Table) 04/27/17 04/27/17 04/27/17 Range/Units 06:10 06:10 06:10 WBC 13.0 H (3.8-10.6) k/uL Neutrophils # 11.8 H (1.3-7.7) k/uL Lymphocytes # 0.8 L (1.0-4.8) k/uL PT 12.4 H (9.0-12.0) sec INR 1.3 H (<1.2) APTT 30.3 H (22.0-30.0) sec Sodium 136 L (137-145) mmol/L Chloride 96 L (98-107) mmol/L BUN 24 H (9-20) mg/dL Creatinine 1.30 H (0.66-1.25) mg/dL Glucose 202 H (74-99) mg/dL Thrombosis Risk Factor Assmnt - DVT/VTE Prophylaxis DVT/VTE Prophylaxis: Pharmacologic Prophylaxis ordered - Choose All That Apply Any of the Below Risk Factors Present?: Yes Each Factor Represents 1 point: Heart failure (<1month), Obesity (BMI >25), Swollen legs (current) Other Risk Factors: Yes Each Risk Factor Represents 2 Points: Age 61-74 years Other congenital or acquired thrombophilia - If yes, enter type in comment: No Thrombosis Risk Factor Assessment Total Risk Factor Score: 5 Thrombosis Risk Factor Assessment Level: High Risk Assessment and Plan Assessment: Chest pain rule out acute currently syndrome Possible acute CHF. Ejection fraction unknown Acute kidney injury mostly prerenal Morbid obesity with BMI 41.8 History of [place] and coronary artery disease status post stent 15 years ago Chest x-ray findings of COPD History of CVA/TIA Osteoarthritis Hypertension Paroxysmal atrial fibrillation Chronic lower back pain and right-sided sciatica and bilateral knee pain History of gout History of TIA with a left visual field affected Indirect agent orange exposure while in the [place]. Plan: Patient be continued on telemetry monitoring along with serial EKG and troponins. BNP will be ordered. 2-D echo and cardiology evaluation. Continue with home medications and follow up closely. Further recommendations based on the clinical course. Prognosis is guarded with multiple medical problems and comorbid conditions. Time with Patient: Greater than 30
--- NOTE | 2017-04-27 22:53 | P.DS ---
Providers Date of admission: 04/27/17 06:02 Expected date of discharge: 04/27/17 Attending physician: Ave Layne Consults: 04/27/17 06:02 Consult Physician Urgent Consulting Provider: Shawn Jauregui Consult Reason/Comments: cp Do you want consulting provider notified?: Yes Primary care physician: Jerod Braun MD Hospital Course: Chest pain rule out acute currently syndrome Possible acute CHF. Ejection fraction unknown Acute kidney injury mostly prerenal Morbid obesity with BMI 41.8 History of [place] and coronary artery disease status post stent 15 years ago Chest x-ray findings of COPD History of CVA/TIA Osteoarthritis Hypertension Paroxysmal atrial fibrillation Chronic lower back pain and right-sided sciatica and bilateral knee pain History of gout History of TIA with a left visual field affected Indirect agent orange exposure while in the [place]. Patient is a 72-year-old male with a known history of paroxysmal atrial fibrillation, coronary artery disease with history of 7 stent placement, CHF, hypertension, osteoarthritis and multiple other medical problems came to ER with complaints of chest pain and shortness of breath and worsening leg swelling. Chest pain is mainly retrosternal. No radiation. No associated nausea or vomiting. Patient does have underlying shortness of breath. No headache or dizziness or lightheadedness. Patient usually follows with [facility]. Patient is on home oxygen. Apparently patient has been having leg swelling. Patient does have orthopnea and could not able to lie flat. Patient usually sleeps on the change. No fever no chills. No nausea vomiting or abdominal pain. Chest x-ray showed COPD and interstitial prominence EKG showed sinus rhythm with first-degree AV block Troponin 1 negative D-dimer not elevated BNP was ordered Patient is a poor historian otherwise Patient was continued on telemetry monitoring along with serial EKG and troponins. BNP ordered. 2-D echo and cardiology evaluation. Continued with home medications and followed closely. Today afternoon patient decided to leave againest medical advise. Patient was counseled extensively and explained complications of leaving AGAINST MEDICAL ADVICE including . Patient says that his is a nurse and he is better taken care of her at home and decided to go AMA. Patient left AMA Patient Condition at Discharge: Fair Plan - Discharge Summary Discharge Rx Participant: No New Discharge Prescriptions: No Action FLUoxetine HCL [PROzac] 20 mg PO DAILY Aspirin 81 mg PO DAILY@2200 Labetalol HCl [Trandate] 600 mg PO BID Terazosin [Hytrin] 8 mg PO HS@0000 Isosorbide Mononitrate ER [Imdur] 60 mg PO DAILY Rivaroxaban [Xarelto] 15 mg PO W/SUPPER rOPINIRole HCL [Requip] 0.5 mg PO TID Nitroglycerin Sl Tabs [Nitrostat] 0.4 mg SUBLINGUAL Q5M PRN PRN Reason: Chest Pain Allopurinol [Zyloprim] 100 mg PO DAILY tab Gabapentin [Neurontin] 100 mg PO BID cap Potassium 99 mg PO DAILY@2199 Colchicine [Colcrys] 0.3 mg PO BID-W/MEALS oxyCODONE HCL [Roxicodone] 5 mg PO TID Ranolazine [Ranexa] 1,000 mg PO BID LORazepam [Ativan] 1 mg PO TID traZODone HCL [Desyrel] 100 mg PO HS@0000 Bumetanide (Unknown Dose) 2 tab PO DAILY Discharge Medication List Aspirin 81 mg PO DAILY@219907/03/13 [History] FLUoxetine HCL [PROzac] 20 mg PO DAILY 07/03/13 [History] Labetalol HCl [Trandate] 600 mg PO BID 07/03/13 [History] Terazosin [Hytrin] 8 mg PO HS@0000 12/25/13 [History] Isosorbide Mononitrate ER [Imdur] 60 mg PO DAILY 03/11/15 [History] Rivaroxaban [Xarelto] 15 mg PO W/SUPPER 04/20/16 [History] Nitroglycerin Sl Tabs [Nitrostat] 0.4 mg SUBLINGUAL Q5M PRN 12/25/16 [History] rOPINIRole HCL [Requip] 0.5 mg PO TID 12/25/16 [History] Allopurinol [Zyloprim] 100 mg PO DAILY tab 01/01/17 [Rx] Gabapentin [Neurontin] 100 mg PO BID cap 01/01/17 [Rx] Bumetanide (Unknown Dose) 2 tab PO DAILY 04/27/17 [History] Colchicine [Colcrys] 0.3 mg PO BID-W/MEALS 04/27/17 [History] LORazepam [Ativan] 1 mg PO TID 04/27/17 [History] Potassium 99 mg PO DAILY@219904/27/17 [History] Ranolazine [Ranexa] 1,000 mg PO BID 04/27/17 [History] oxyCODONE HCL [Roxicodone] 5 mg PO TID 04/27/17 [History] traZODone HCL [Desyrel] 100 mg PO HS@0000 04/27/17 [History] Follow up Appointment(s)/Referral(s): Jerod Braun MD [Primary Care Provider] - 1-2 days Discharge Disposition: Left Against Medical Advice
[2017-04-28] MEDS ORDERED: ASPIRIN 325 MG TAB PO SCH (09:00)
== END 2017-04-27 12:45 | disposition left against medical advice (07) ==
LOC: EC 05:53 → 3OBS 06:02
PROVIDERS: ADMIT Hospitalist; ATTEND Hospitalist
DX: R07.89 Other chest pain (principal); N17.9 Acute kidney failure, unspecified; E66.01 Morbid (severe) obesity due to excess calories; Z68.41 Body mass index [BMI] 40.0-44.9, adult; I25.2 Old myocardial infarction; I25.10 Atherosclerotic heart disease of native coronary artery without angina pectoris; Z95.5 Presence of coronary angioplasty implant and graft; Z86.73 Personal history of transient ischemic attack (TIA), and cerebral infarction without residual deficits; M19.90 Unspecified osteoarthritis, unspecified site; I48.0 Paroxysmal atrial fibrillation; G89.29 Other chronic pain; M25.561 Pain in right knee; M25.562 Pain in left knee; R06.02 Shortness of breath; N18.9 Chronic kidney disease, unspecified; I11.0 Hypertensive heart disease with heart failure; I50.9 Heart failure, unspecified; J44.9 Chronic obstructive pulmonary disease, unspecified; R09.02 Hypoxemia; M54.41 Lumbago with sciatica, right side; M10.9 Gout, unspecified; E78.5 Hyperlipidemia, unspecified; F32.9 Major depressive disorder, single episode, unspecified; G25.81 Restless legs syndrome; Z99.81 Dependence on supplemental oxygen; Z79.82 Long term (current) use of aspirin; Z79.899 Other long term (current) drug therapy; Z79.01 Long term (current) use of anticoagulants; Z88.8 Allergy status to other drugs, medicaments and biological substances; Z80.3 Family history of malignant neoplasm of breast; Z53.21 Procedure and treatment not carried out due to patient leaving prior to being seen by health care provider
CPT/HCPCS: 99291; 96374; 96375 ×3; 96376 ×2; 96361 ×7; 36415; 94640; 93005; 85379; 80053; 82550; 82553; 83690; 83735; 84484; 85025; 85610; 85730; 71045; G0378; J2270; J1940

== ENCOUNTER 2018-01-29 11:50 | Inpatient (IN) | payer OTHER, MEDICARE ==
[2018-01-29] MEDS ORDERED: SODIUM CHLORIDE 0.9% 1,000 ML IV ONE (12:03)
--- NOTE | 2018-01-29 12:07 | ED ---
Altered Mental Status HPI - General Stated Complaint: confusion, fall 2 days ago Time Seen by Provider: 01/29/18 11:50 Source: patient, EMS, RN notes reviewed Mode of arrival: EMS - History of Present Illness Initial Comments: This is a 72-year-old male was brought in by EMS for evaluation of altered mental status which began yesterday. Currently he fell on the back of his head 2 days ago he did has some chills he was confused she thought was a early 1990s. No reports of fevers sweats cough phlegm production or other symptoms history is somewhat limited at this time. MD Complaint: altered mental status, confusion - Related Data Home Medications Medication Instructions Recorded Confirmed Aspirin 81 mg PO DAILY@2200 07/03/13 01/29/18 FLUoxetine HCL [PROzac] 20 mg PO DAILY@1000 07/03/13 01/29/18 Labetalol HCl [Trandate] 600 mg PO BID@1000,2200 07/03/13 01/29/18 Terazosin [Hytrin] 8 mg PO HS@0000 12/25/13 01/29/18 Isosorbide Mononitrate ER [Imdur] 60 mg PO DAILY@1000 03/11/15 01/29/18 Rivaroxaban [Xarelto] 15 mg PO W/SUPPER 04/20/16 01/29/18 Nitroglycerin Sl Tabs [Nitrostat] 0.4 mg SUBLINGUAL Q5M PRN 12/25/16 01/29/18 rOPINIRole HCL [Requip] 0.5 mg PO TID@0000,1000,1700 12/25/16 01/29/18 Colchicine [Colcrys] 0.3 mg PO BID@0000,1700 04/27/17 01/29/18 LORazepam [Ativan] 1 mg PO TID@0000,1000,1700 04/27/17 01/29/18 Ranolazine [Ranexa] 1,000 mg PO BID@0800,2200 04/27/17 01/29/18 oxyCODONE HCL [Roxicodone] 10 mg PO TID@0000,1000,1700 04/27/17 01/29/18 traZODone HCL [Desyrel] 100 mg PO HS@0000 04/27/17 01/29/18 Allopurinol [Zyloprim] 100 mg PO DAILY@1000 01/29/18 01/29/18 Gabapentin [Neurontin] 100 mg PO BID@1000,2200 01/29/18 01/29/18 Potassium Chloride ER [K-Dur 10] 10 meq PO DAILY@1700 PRN 01/29/18 01/29/18 Allergies Allergy/AdvReac Type Severity Reaction Status Date / Time amlodipine AdvReac CONSTIPATIO Verified 01/29/18 12:20 N atenolol AdvReac MALE ED Verified 01/29/18 12:20 hydrochlorothiazide AdvReac RENAL Verified 01/29/18 12:20 IMPAIRMENT pravastatin AdvReac Rash/Hives Verified 01/29/18 12:20 Review of Systems ROS Statement: Those systems with pertinent positive or pertinent negative responses have been documented in the HPI. ROS Other: All systems not noted in ROS Statement are negative. Past Medical History Past Medical History: Atrial Fibrillation, Coronary Artery Disease (CAD), Heart Failure, Hyperlipidemia, Hypertension, Myocardial Infarction ([place]) Additional Past Medical History / Comment(s): ? 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 gout in past. restless leg Last Myocardial Infarction Date:: 2009 History of Any Multi-Drug Resistant Organisms: None Reported Past Surgical History: Heart Catheterization With Stent, Tonsillectomy Additional Past Surgical History / Comment(s): [id number] stents, rt hand sx to repair severed lig/tendons Past Anesthesia/Blood Transfusion Reactions: No Reported Reaction Additional Past Anesthesia/Blood Transfusion Reaction / Comment(s): clausterphobia Date of Last Stent Placement:: 2009 Past Psychological History: Depression Smoking Status: Never smoker Past Alcohol Use History: None Reported Past Drug Use History: None Reported - Past Family History Mother Family Medical History: Cancer Additional Family Medical History / Comment(s): breast cancer, heart problems was on warfarin(pt stated she bled out) Father Family Medical History: Coronary Artery Disease (CAD), Myocardial Infarction ([place] ) Additional Family Medical History / Comment(s): Father had his 1st IN in his 50s and then from his 2nd IN at the age of 74yrs. General Exam - General Exam Comments Initial Comments: This a well-developed well-nourished awake alert but confused male Limitations: altered mental status, physical limitation General appearance: alert, in no apparent distress Head exam: Present: atraumatic, normocephalic, normal inspection Eye exam: Present: normal appearance, PERRL, EOMI. Absent: scleral icterus, conjunctival injection, periorbital swelling ENT exam: Present: mucous membranes dry Neck exam: Present: normal inspection, full ROM. Absent: tenderness, meningismus, lymphadenopathy Respiratory exam: Present: normal lung sounds bilaterally. Absent: respiratory distress, wheezes, rales, rhonchi, stridor Cardiovascular Exam: Present: regular rate, normal rhythm, normal heart sounds. Absent: systolic murmur, diastolic murmur, rubs, gallop, clicks GI/Abdominal exam: Present: soft, normal bowel sounds. Absent: distended, tenderness, guarding, rebound, rigid Rectal exam: Present: deferred Extremities exam: Present: normal capillary refill, other (Peripheral vascular disease and an evident peripheral edema with weeping noted to both lower extremities. Some increased localized temperature to the touch also was to the left mid posterior medial leg and also to the posterior right leg.) Back exam: Present: normal inspection Neurological exam: Present: alert, altered, CN II-XII intact. Absent: motor sensory deficit Psychiatric exam: Present: normal affect, normal mood Skin exam: Present: warm, dry. Absent: intact, normal color Course Vital Signs 01/29/18 12:05 Temperature 98.9 F Pulse Rate 65 Respiratory 16 Rate Blood Pressure 134/55 O2 Sat by Pulse 94 L Oximetry - Reevaluation(s) Reevaluation #1: 01/29/18 14:07 Reevaluation patient reveals increased mentation after IV fluids. I did have discussions the patient's son regarding the findings additionally. She had a previous episode like this but a year ago which also involved renal problems and leg problems. Medical Decision Making - Medical Decision Making Patient will be admitted for inpatient treatment of lower sternal he cellulitis acute renal failure dehydration and acute confusional state - Lab Data Result diagrams: 01/29/18 12:05 01/29/18 12:05 Lab Results 01/29/18 01/29/18 01/29/18 Range/Units 12:05 12:05 12:05 WBC (3.8-10.6) k/uL RBC (4.30-5.90) m/uL Hgb (13.0-17.5) gm/dL Hct (39.0-53.0) % MCV (80.0-100.0) fL MCH (25.0-35.0) pg MCHC (31.0-37.0) g/dL RDW (11.5-15.5) % Plt Count (150-450) k/uL Neutrophils % % Lymphocytes % % Monocytes % % Eosinophils % % Basophils % % Neutrophils # (1.3-7.7) k/uL Lymphocytes # (1.0-4.8) k/uL Monocytes # (0-1.0) k/uL Eosinophils # (0-0.7) k/uL Basophils # (0-0.2) k/uL PT (9.0-12.0) sec INR (<1.2) APTT (22.0-30.0) sec Sodium (137-145) mmol/L Potassium (3.5-5.1) mmol/L Chloride (98-107) mmol/L Carbon Dioxide (22-30) mmol/L Anion Gap mmol/L BUN (9-20) mg/dL Creatinine (0.66-1.25) mg/dL Est GFR (CKD-EPI)AfAm (>60 ml/min/1.73 sqM) Est GFR (CKD-EPI)NonAf (>60 ml/min/1.73 sqM) Glucose (74-99) mg/dL Calcium (8.4-10.2) mg/dL Magnesium (1.6-2.3) mg/dL Total Bilirubin (0.2-1.3) mg/dL AST (17-59) U/L ALT (21-72) U/L Alkaline Phosphatase (38-126) U/L Ammonia 19 (<30) umol/L Total Creatine Kinase 442 H (55-170) U/L CK-MB (CK-2) 9.9 H (0.0-2.4) ng/mL CK-MB (CK-2) Rel Index 2.2 Troponin I <0.012 (0.000-0.034) ng/mL NT-Pro-B Natriuret Pep 1890 pg/mL Total Protein (6.3-8.2) g/dL Albumin (3.5-5.0) g/dL 01/29/18 01/29/18 01/29/18 Range/Units 12:05 12:05 12:05 WBC 15.3 H (3.8-10.6) k/uL RBC 3.66 L (4.30-5.90) m/uL Hgb 11.4 L (13.0-17.5) gm/dL Hct 35.0 L (39.0-53.0) % MCV 95.7 (80.0-100.0) fL MCH 31.1 (25.0-35.0) pg MCHC 32.5 (31.0-37.0) g/dL RDW 15.7 H (11.5-15.5) % Plt Count 310 (150-450) k/uL Neutrophils % 83 % Lymphocytes % 4 % Monocytes % 8 % Eosinophils % 3 % Basophils % 0 % Neutrophils # 12.7 H (1.3-7.7) k/uL Lymphocytes # 0.6 L (1.0-4.8) k/uL Monocytes # 1.2 H (0-1.0) k/uL Eosinophils # 0.5 (0-0.7) k/uL Basophils # 0.1 (0-0.2) k/uL PT 12.9 H (9.0-12.0) sec INR 1.2 H (<1.2) APTT 35.3 H (22.0-30.0) sec Sodium 132 L (137-145) mmol/L Potassium 5.7 H (3.5-5.1) mmol/L Chloride 96 L (98-107) mmol/L Carbon Dioxide 22 (22-30) mmol/L Anion Gap 14 mmol/L BUN 68 H (9-20) mg/dL Creatinine 4.84 H (0.66-1.25) mg/dL Est GFR (CKD-EPI)AfAm 13 (>60 ml/min/1.73 sqM) Est GFR (CKD-EPI)NonAf 11 (>60 ml/min/1.73 sqM) Glucose 99 (74-99) mg/dL Calcium 8.8 (8.4-10.2) mg/dL Magnesium 2.2 (1.6-2.3) mg/dL Total Bilirubin 1.0 (0.2-1.3) mg/dL AST 34 (17-59) U/L ALT 35 (21-72) U/L Alkaline Phosphatase 91 (38-126) U/L Ammonia (<30) umol/L Total Creatine Kinase (55-170) U/L CK-MB (CK-2) (0.0-2.4) ng/mL CK-MB (CK-2) Rel Index Troponin I (0.000-0.034) ng/mL NT-Pro-B Natriuret Pep pg/mL Total Protein 6.8 (6.3-8.2) g/dL Albumin 3.7 (3.5-5.0) g/dL - EKG Data -: EKG Interpreted by Ct EKG shows normal: sinus rhythm (Sinus rhythm first-degree AV block rate was 68. Interval 354 QRS 104 QT since QTC 440/[address]-T wave changes.) - Radiology Data Radiology results: report reviewed (I did review the imaging and report no acute findings.), image reviewed Disposition Clinical Impression: Acute confusional state, Acute renal failure (ARF), Failure to thrive, Dehydration, Cellulitis and abscess of left leg, Cellulitis Disposition: ADMITTED IP TO THIS HOSP Condition: Serious Referrals: Jerod Braun MD [Primary Care Provider] - 1-2 days Decision to Admit Reason: Admit from EC
[2018-01-29 12:32] LABS: Basophils # (A) 0.1 k/uL (0-0.2); Basophils % (A) 0 %; Eosinophils # (A) 0.5 k/uL (0-0.7); Eosinophils % (A) 3 %; HGB 11.4 gm/dL (13.0-17.5); Lymphocytes # (A) 0.6 k/uL (1.0-4.8); Lymphocytes % (A) 4 %; MCH 31.1 pg (25.0-35.0); MCHC 32.5 g/dL (31.0-37.0); MCV 95.7 fL (80.0-100.0); Mean Platelet Volume 6.6; Monocytes # (A) 1.2 k/uL (0-1.0); Monocytes % (A) 8 %; Neutrophils # (A) 12.7 k/uL (1.3-7.7); Neutrophils % (A) 83 %; Platelet Count 310 k/uL (150-450); RBC 3.66 m/uL (4.30-5.90); RDW 15.7 % (11.5-15.5); WBC 15.3 k/uL (3.8-10.6)
--- NOTE | 2018-01-29 12:34 | CT ---
EXAMINATION TYPE: CT brain wo con DATE OF EXAM: 01/29/2018 COMPARISON: 03/11/2015 INDICATION: AMS, patient fell 2 days ago, on coumadin DLP: 1162.4 mGycm, Automated exposure control for dose reduction was used. CONTRAST: None CT of the brain is performed utilizing 3 mm thick sections through the posterior fossa and 3 mm thick sections through the remaining calvarium. Study is performed within 24 hours of arrival to the hosp [facility]. No abnormal hyperdensity is present to suggest an acute intracranial hemorrhage. No mass lesion is evident. No acute infarcts are evident. There is periventricular white matter hypodensity, likely on the basis of chronic white matter ischemic changes. Ventricles and sulci are moderately prominent for the patient age. Mucosal thickening is within the left maxillary sinus. Mild mucosal thickening is within ethmoid air cells. No significant change from the comparison of 2015. IMPRESSIONS: 1. Atrophy with periventricular white matter ischemic changes. 2. No acute intracranial process.
[2018-01-29 12:37] LABS: Albumin 3.7 g/dL (3.5-5.0); Calcium 8.8 mg/dL (8.4-10.2); Magnesium 2.2 mg/dL (1.6-2.3); Potassium 5.7 mmol/L (3.5-5.1); Total Protein 6.8 g/dL (6.3-8.2)
[2018-01-29 12:40] LABS: INR 1.2 (<1.2); Partial Thromboplastin Time 35.3 sec (22.0-30.0); Prothrombin Time 12.9 sec (9.0-12.0)
[2018-01-29 12:46] LABS: Creatine Kinase 442 U/L (55-170)
[2018-01-29 13:00] LABS: Creatine Kinase MB 9.9 ng/mL (0.0-2.4); Troponin I <0.012 ng/mL (0.000-0.034)
--- NOTE | 2018-01-29 13:19 | XR ---
EXAMINATION TYPE: XR chest 2V DATE OF EXAM: 01/29/2018 COMPARISON: 04/27/2017 INDICATION: Altered mental status fall Coumadin TECHNIQUE: Frontal and lateral views of the chest are obtained. FINDINGS: The heart size is enlarged. The pulmonary vasculature is prominent. Mild diffuse increased lung markings are present. Correlate for volume overload or early pulmonary ed romero. Spondylosis is within the thoracic spine IMPRESSION: 1. Clinical correlation recommended for volume overload or early congestive heart failure.
[2018-01-29] MEDS ORDERED: PIPERACILLIN-TAZOBACTAM 3.375 GM in SODIUM CHLORIDE 0.9% 100 ML IVPB STA (14:05)
[2018-01-29] MEDS ORDERED: ACETAMINOPHEN TAB 325 MG TAB PO PRN (14:12)
[2018-01-29] MEDS ORDERED: NALOXONE 0.4 MG/ML 1 ML VIAL IV PRN (14:12)
[2018-01-29] MEDS ORDERED: NITROGLYCERIN SL TABS 0.4 MG TAB SUBLINGUAL PRN (14:14)
[2018-01-29] MEDS ORDERED: SODIUM CHLORIDE 0.9% 1,000 ML IV SCH (14:15)
[2018-01-29] MEDS ORDERED: VANCOMYCIN IV PER PHARMACY 1 EACH MISC MISCELLANE PRN (14:16)
[2018-01-29] MEDS ORDERED: VANCOMYCIN 1,750 MG in SODIUM CHLORIDE 0.9% 500 ML 500 ML IVPB ONE (15:00)
[2018-01-29 16:09] LABS: Appearance,Urine Cloudy (Clear); Bilirubin,Urine Negative (Negative); Blood,Urine Trace (Negative); Color,Urine Light Red; Glucose,Urine (UA) Negative (Negative); Ketones,Urine Negative (Negative); Leukocyte Esterase,Urine Negative (Negative); Mucus,Urine Rare /hpf; Nitrite,Urine Negative (Negative); Protein,Urine 1+ (Negative); RBC,Urine 1 /hpf (0-5); Specific Gravity,Urine 1.014 (1.001-1.035); Squamous Epithelial Cell,Urine 1 /hpf (0-4); Urobilinogen,Urine <2.0 mg/dL (<2.0); WBC,Urine 2 /hpf (0-5)
[2018-01-29 16:14] LABS: Amphetamine Screen,Urine Not Detected (NotDetected); Barbiturate Screen,Urine Not Detected (NotDetected); Benzodiazepines Screen,Urine Detected (NotDetected); Cocaine Screen,Urine Not Detected (NotDetected); Methadone Screen, Urine Not Detected (NotDetected); Opiate Screen,Urine Not Detected (NotDetected); Oxycodone Screen, Urine Detected (NotDetected); Phencyclidine Screen,Urine Not Detected (NotDetected); Tricyclic Antidepressant,Urine Not Detected (NotDetected); Urn Cannabinoid Scrn Not Detected (NotDetected)
[2018-01-29] MEDS ORDERED: COLCHICINE 0.6 MG EACH PO SCH (17:00)
[2018-01-29] MEDS ORDERED: POTASSIUM CHLORIDE ER 10 MEQ TAB.ER.PRT PO PRN (17:00)
[2018-01-29] MEDS: RIVAROXABAN 15 MG TAB PO SCH (18:50)
[2018-01-29] MEDS: GABAPENTIN 100 MG CAP PO SCH (21:15)
[2018-01-29] MEDS: LABETALOL 200 MG TAB PO SCH (21:15)
[2018-01-29] MEDS: ASPIRIN 81 MG PO SCH (21:15)
[2018-01-29] MEDS: RANOLAZINE 500 MG TAB.ER.12H PO SCH (21:15)
[2018-01-29] MEDS ORDERED: MELATONIN 3 MG TABLET PO PRN (23:09)
[2018-01-29] MEDS: COLCHICINE 0.6 MG EACH PO SCH (23:36)
[2018-01-29] MEDS: traZODone HCL 100 MG TAB PO SCH (23:36)
[2018-01-29] MEDS: DOXAZOSIN 2 MG TAB PO SCH (23:37)
[2018-01-29] MEDS: HYDROmorphone 1 MG/ML 1 ML SYRINGE IVP PRN (23:38)
--- NOTE | 2018-01-30 01:15 | P.HPIM ---
History of Present Illness H&P Date: 01/29/18 Chief Complaint: Altered mental status Patient is a 72-year-old male with a known history of atrial fibrillation on anticoagulation, chronic lower extremity venostasis, coronary artery disease with stent placement, chronic CHF with diastolic dysfunction and previous history of lower extremities cellulitis was brought to the hospital by EMS due to altered mental status. Patient was more confused this morning and unable to arouse when he came to the hospital. Patient had subjective chills and confused and thought it was early 90s. Otherwise no fever. No cough or sputum production. No chest pain or shortness of breath. Patient does have bilateral lower extremities discoloration and venous ulcers. Patient does have leukocytosis on admission. Patient also having worsening renal function with elevated BUN and creatinine level. Patient mental status did improve with fluid bolus and antibiotics in the form of Zosyn and vancomycin. ID and nephrology was consulted. CT head showed atrophy and periventricular white matter ischemic changes. Chest x-ray showed clinical correlation recommended for volume overload or early congestive heart failure. WBC 15.3, creatinine 4.8. Creatinine was 1.57 in December 2017. Review of Systems Constitutional: Patient denies any fever or chills . No generalized weakness or weight loss. Abdomen: Patient denied nausea vomiting and diarrhea and abdominal pain. Cardiovascular: Patient denies any chest pain or short of breath no palpitations. Respiratory: patient denied any cough is from production. No shortness of breath Neurologic: Patient denied any numbness or tingling headache. Musculoskeletal: Patient denies any complaints of joint swelling or deformity. Bilateral lower extremity swelling and discoloration Skin: Negative Psychiatric: Negative Endocrine: No heat or cold intolerance. No recent weight gain. Genitourinary: No dysuria or hematuria. All other 14 point ROS negative except the above Past Medical History Past Medical History: Atrial Fibrillation, Coronary Artery Disease (CAD), Heart Failure, Hyperlipidemia, Hypertension, Myocardial Infarction ([place]) Additional Past Medical History / Comment(s): ? 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 pt stated has slept in recliner chair for past 10 years. gout in past. restless leg , leg swelling Last Myocardial Infarction Date:: 2009 History of Any Multi-Drug Resistant Organisms: None Reported Past Surgical History: Heart Catheterization With Stent, Tonsillectomy Additional Past Surgical History / Comment(s): [id number] stents, rt hand sx to repair severed lig/tendons(age 20) has limited use of index finger Past Anesthesia/Blood Transfusion Reactions: No Reported Reaction Additional Past Anesthesia/Blood Transfusion Reaction / Comment(s): clausterphobia Date of Last Stent Placement:: 2009 Smoking Status: Never smoker - Past Family History Mother Family Medical History: Cancer Additional Family Medical History / Comment(s): breast cancer, heart problems was on warfarin(pt stated she bled out) Father Family Medical History: Coronary Artery Disease (CAD), Myocardial Infarction ([place] ) Additional Family Medical History / Comment(s): Father had his 1st NV in his 50s and then from his 2nd NV at the age of 74yrs. Medications and Allergies Home Medications Medication Instructions Recorded Confirmed Type Aspirin 81 mg PO DAILY@2200 07/03/13 01/29/18 History FLUoxetine HCL [PROzac] 20 mg PO DAILY@1000 07/03/13 01/29/18 History Labetalol HCl [Trandate] 600 mg PO BID@1000,2200 07/03/13 01/29/18 History Terazosin [Hytrin] 8 mg PO HS@0000 12/25/13 01/29/18 History Isosorbide Mononitrate ER [Imdur] 60 mg PO DAILY@1000 03/11/15 01/29/18 History Rivaroxaban [Xarelto] 15 mg PO W/SUPPER 04/20/16 01/29/18 History Nitroglycerin Sl Tabs [Nitrostat] 0.4 mg SUBLINGUAL Q5M PRN 12/25/16 01/29/18 History rOPINIRole HCL [Requip] 0.5 mg PO TID@0000,1000,1700 12/25/16 01/29/18 History Colchicine [Colcrys] 0.3 mg PO BID@0000,1700 04/27/17 01/29/18 History LORazepam [Ativan] 1 mg PO TID@0000,1000,1700 04/27/17 01/29/18 History Ranolazine [Ranexa] 1,000 mg PO BID@0800,2200 04/27/17 01/29/18 History oxyCODONE HCL [Roxicodone] 10 mg PO TID@0000,1000,1700 04/27/17 01/29/18 History traZODone HCL [Desyrel] 100 mg PO HS@0000 /11/0601/29/18 History Allopurinol [Zyloprim] 100 mg PO DAILY@1000 01/29/18 01/29/18 History Gabapentin [Neurontin] 100 mg PO BID@1000,2200 01/29/18 01/29/18 History Potassium Chloride ER [K-Dur 10] 10 meq PO DAILY@1700 PRN 01/29/18 01/29/18 History Allergies Allergy/AdvReac Type Severity Reaction Status Date / Time amlodipine AdvReac CONSTIPATIO Verified 01/29/18 12:20 N atenolol AdvReac MALE ED Verified 01/29/18 12:20 hydrochlorothiazide AdvReac RENAL Verified 01/29/18 12:20 IMPAIRMENT pravastatin AdvReac Rash/Hives Verified 01/29/18 12:20 Physical Exam Vitals: Vital Signs Temp Pulse Resp BP Pulse Ox 01/29/18 16:53 98.3 F 67 18 133/54 97 01/29/18 15:50 69 18 126/53 96 01/29/18 14:38 68 16 131/56 97 01/29/18 12:05 98.9 F 65 16 134/55 94 L Intake and Output 01/29/18 01/29/18 01/29/18 06:59 14:59 22:59 Other: Weight 115.666 kg PHYSICAL EXAMINATION: Patient is lying in the bed comfortably, no acute distress, awake alert and oriented. Slight confusion. HEENT: Normocephalic. Neck is supple. Pupils reactive. Nostrils clear. Oral cavity is moist. Ears reveal no drainage. Neck reveals no JVD, carotid bruits, or thyromegaly. CHEST EXAMINATION: Trachea is central. Symmetrical expansion. Bibasilar diminished air entry. Lung owodward clear to auscultation and percussion. CARDIAC: Normal S1, S2 with no gallops. No murmurs ABDOMEN: Soft. Bowel sounds normal. No organomegaly. No abdominal bruits. Extremities: Bilateral lower extremities dark discoloration and swelling with ulceration. Neurologically awake, alert, oriented x2-3 with well-coordinated movements. No focal deficits noted Skin: No rash or skin lesions. Psychiatric: Coperative. Denied any suicidal ideation. Musculoskeletal: No joint swelling or deformity. Normal range of motion. Results CBC & Chem 7: 01/29/18 12:05 01/29/18 12:05 Labs: Abnormal Lab Results - Last 24 Hours (Table) 01/29/18 01/29/18 01/29/18 Range/Units 12:05 12:05 12:05 WBC 15.3 H (3.8-10.6) k/uL RBC 3.66 L (4.30-5.90) m/uL Hgb 11.4 L (13.0-17.5) gm/dL Hct 35.0 L (39.0-53.0) % RDW 15.7 H (11.5-15.5) % Neutrophils # 12.7 H (1.3-7.7) k/uL Lymphocytes # 0.6 L (1.0-4.8) k/uL Monocytes # 1.2 H (0-1.0) k/uL PT (9.0-12.0) sec INR (<1.2) APTT (22.0-30.0) sec Sodium 132 L (137-145) mmol/L Potassium 5.7 H (3.5-5.1) mmol/L Chloride 96 L (98-107) mmol/L BUN 68 H (9-20) mg/dL Creatinine 4.84 H (0.66-1.25) mg/dL Total Creatine Kinase 442 H (55-170) U/L CK-MB (CK-2) 9.9 H (0.0-2.4) ng/mL Urine Protein (Negative) Urine Blood (Negative) Urine Mucus (None) /hpf Ur Oxycodone Screen (NotDetected) Ur Propoxyphene Screen (NotDetected) U Benzodiazepines Scrn (NotDetected) 01/29/18 01/29/18 01/29/18 Range/Units 12:05 15:28 15:28 WBC (3.8-10.6) k/uL RBC (4.30-5.90) m/uL Hgb (13.0-17.5) gm/dL Hct (39.0-53.0) % RDW (11.5-15.5) % Neutrophils # (1.3-7.7) k/uL Lymphocytes # (1.0-4.8) k/uL Monocytes # (0-1.0) k/uL PT 12.9 H (9.0-12.0) sec INR 1.2 H (<1.2) APTT 35.3 H (22.0-30.0) sec Sodium (137-145) mmol/L Potassium (3.5-5.1) mmol/L Chloride (98-107) mmol/L BUN (9-20) mg/dL Creatinine (0.66-1.25) mg/dL Total Creatine Kinase (55-170) U/L CK-MB (CK-2) (0.0-2.4) ng/mL Urine Protein 1+ H (Negative) Urine Blood Trace H (Negative) Urine Mucus Rare H (None) /hpf Ur Oxycodone Screen Detected H (NotDetected) Ur Propoxyphene Screen Detected H (NotDetected) U Benzodiazepines Scrn Detected H (NotDetected) Assessment and Plan Assessment: Altered mental status likely due to metabolic encephalopathy. Improving Bilateral lower extremities cellulitis Chronic bilateral lower extremities venous stasis/swelling with discoloration Acute on chronic kidney disease stage III. Creatinine greater than 4. 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 Chronic pain syndrome Plan: Patient was given fluid bolus in the ER. Gentle hydration due to history of CHF. Continue with antibiotics in the form of vancomycin and Zosyn. ID and nephrology was consulted. Continue the home medications and follow up closely. Mental status is improving currently. Further recommendations based on the clinical course. Prognosis is guarded. Time with Patient: Greater than 30
[2018-01-30] MEDS: HYDROmorphone 1 MG/ML 1 ML SYRINGE IVP PRN ×3 (05:39→20:39)
[2018-01-30] MEDS: RANOLAZINE 500 MG TAB.ER.12H PO SCH ×2 (08:45→21:18)
[2018-01-30] MEDS: FLUoxetine HCL 20 MG CAP PO SCH (08:55)
[2018-01-30] MEDS: GABAPENTIN 100 MG CAP PO SCH ×2 (08:55→21:19)
[2018-01-30] MEDS: LABETALOL 200 MG TAB PO SCH ×2 (08:56→21:18)
[2018-01-30] MEDS: ISOSORBIDE MONONITRATE ER 60 MG TAB.ER.24H PO SCH (08:56)
[2018-01-30] MEDS: ALLOPURINOL 100 MG TAB PO SCH (08:59)
[2018-01-30] MEDS ORDERED: VANCOMYCIN 1,750 MG in SODIUM CHLORIDE 0.9% 500 ML 500 ML IVPB ONE (09:00)
[2018-01-30 10:28] LABS: Basophils % (A) 0 %; Eosinophils # (A) 0.5 k/uL (0-0.7); Eosinophils % (A) 7 %; HCT 34.4 % (39.0-53.0); HGB 11.2 gm/dL (13.0-17.5); Lymphocytes # (A) 0.7 k/uL (1.0-4.8); Lymphocytes % (A) 10 %; MCH 31.3 pg (25.0-35.0); MCHC 32.5 g/dL (31.0-37.0); MCV 96.4 fL (80.0-100.0); Monocytes # (A) 0.6 k/uL (0-1.0); Monocytes % (A) 9 %; Neutrophils # (A) 5.1 k/uL (1.3-7.7); Neutrophils % (A) 73 %; Platelet Count 326 k/uL (150-450); RBC 3.56 m/uL (4.30-5.90); RDW 15.5 % (11.5-15.5)
[2018-01-30 10:49] LABS: Potassium 4.4 mmol/L (3.5-5.1)
--- NOTE | 2018-01-30 13:55 | P.CONS ---
History of Present Illness - Reason for Consult Consult date: 01/30/18 Lower extremity cellulitis - History of Present Illness This is a 72-year-old male patient who was Out into [facility] emergency center due to mental status changes. He had a previous fall 2 days ago for which she states he fell onto his back and then also hit his head with no loss of consciousness. Patient was evaluated in the ER and found to be afebrile, white count was 15.3, hemoglobin 11.4, BUN 68 and creatinine 4.84, potassium 5.7. Patient does have underlying chronic kidney disease stage III and has had episodes of acute kidney injury. CK was 442, proBNP 1890, troponin negative. Urine drug screen was positive for oxycodone, propoxyphene, benzodiazepines. Urinalysis cloudy, trace blood, nitrate and leukoesterase were negative. Wound culture was obtained from the left ankle. CAT scan of the brain showed no acute findings. Chest x-ray showed early heart failure. Patient was admitted to the [facility] floor and continued on vancomycin. There is a consult in place for nephrology. At the time of this interview, patient is awake and alert he is able to answer most questions. He states he has had problems with his lower extremity wound since May but noted the patient had an admission in December 2016 which time he was treated for bilateral lower extremity cellulitis. He states he initially had a wound on the left calf area from scratching his leg with his right foot and scraped it with is toenail. He states he has gone to the [facility] and has been unhappy with care as he has not had significant improvement. Patient is unsure if he's been on antibiotics. Patient presents with wounds to the left leg and right leg. He denies any injury to the right leg to cause wound. Patient is complaining of a lesion on the back of his tongue which was not able to be visualized. He is also complaining of constipation for which he states he received an enema with good results at home prior to admission. Review of Systems All systems: negative Constitutional: Denies chills, Denies fatigue, Denies fever, Denies poor appetite, Denies weight loss Eyes: denies blurred vision, denies pain Ears, nose, mouth and throat: Denies dysphagia, Denies headache, Denies hoarseness, Denies mouth pain, Denies sore throat Cardiovascular: Denies chest pain, Denies shortness of breath Respiratory: Denies cough, Denies cough with sputum, Denies dyspnea, Denies excessive sputum, Denies hemoptysis, Denies home oxygen, Denies wheezing Gastrointestinal: Reports constipation, Denies abdominal pain, Denies diarrhea, Denies loss of appetite, Denies nausea, Denies vomiting Genitourinary: Denies dysuria, Denies urinary retention Musculoskeletal: Reports frequent falls, Reports gait dysfunction, Denies myalgias Integumentary: Reports color changes, Reports darkening of skin, Reports foot/ leg ulcers, Reports wounds, Denies pruritus, Denies rash Neurological: Denies numbness, Denies weakness Psychiatric: Denies anxiety, Denies depression Endocrine: Denies fatigue, Denies weight change Past Medical History Past Medical History: Atrial Fibrillation, Coronary Artery Disease (CAD), Heart Failure, Hyperlipidemia, Hypertension, Myocardial Infarction (IN) Additional Past Medical History / Comment(s): ? 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 pt stated has slept in recliner chair for past 10 years. gout in past. restless leg , leg swelling Last Myocardial Infarction Date:: 2009 History of Any Multi-Drug Resistant Organisms: None Reported Past Surgical History: Heart Catheterization With Stent, Tonsillectomy Additional Past Surgical History / Comment(s): [id number] stents, rt hand sx to repair severed lig/tendons(age 20) has limited use of index finger Past Anesthesia/Blood Transfusion Reactions: No Reported Reaction Additional Past Anesthesia/Blood Transfusion Reaction / Comm: clausterphobia Date of Last Stent Placement:: 2009 Smoking Status: Never smoker Additional Past Alcohol Use History / Comment(s): Patient is a lifelong nonsmoker. He denies any marijuana or illicit drug use. He denies any alcohol use. He lives at home with his in their cats in the home. 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 He has been on disability and served in [place] for 2 years in the [employer] for 7 years. - Past Family History Mother Family Medical History: Cancer Additional Family Medical History / Comment(s): breast cancer, heart problems was on warfarin(pt stated she bled out) Father Family Medical History: Coronary Artery Disease (CAD), Myocardial Infarction (IN ) Additional Family Medical History / Comment(s): Father had his 1st IN in his 50s and then from his 2nd IN at the age of 74yrs. Medications and Allergies Home Medications Medication Instructions Recorded Confirmed Type Aspirin 81 mg PO DAILY@2200 07/03/13 01/29/18 History FLUoxetine HCL [PROzac] 20 mg PO DAILY@1000 07/03/13 01/29/18 History Labetalol HCl [Trandate] 600 mg PO BID@1000,2200 07/03/13 01/29/18 History Terazosin [Hytrin] 8 mg PO HS@0000 12/25/13 01/29/18 History Isosorbide Mononitrate ER [Imdur] 60 mg PO DAILY@1000 03/11/15 01/29/18 History Rivaroxaban [Xarelto] 15 mg PO W/SUPPER 04/20/16 01/29/18 History Nitroglycerin Sl Tabs [Nitrostat] 0.4 mg SUBLINGUAL Q5M PRN 12/25/16 01/29/18 History rOPINIRole HCL [Requip] 0.5 mg PO TID@0000,1000,1700 12/25/16 01/29/18 History Colchicine [Colcrys] 0.3 mg PO BID@0000,1700 04/27/17 01/29/18 History LORazepam [Ativan] 1 mg PO TID@0000,1000,1700 04/27/17 01/29/18 History Ranolazine [Ranexa] 1,000 mg PO BID@0800,2200 04/27/17 01/29/18 History oxyCODONE HCL [Roxicodone] 10 mg PO TID@0000,1000,1700 04/27/17 01/29/18 History traZODone HCL [Desyrel] 100 mg PO HS@0000 04/27/17 01/29/18 History Allopurinol [Zyloprim] 100 mg PO DAILY@1000 01/29/18 01/29/18 History Gabapentin [Neurontin] 100 mg PO BID@1000,2200 01/29/18 01/29/18 History Potassium Chloride ER [K-Dur 10] 10 meq PO DAILY@1700 PRN 01/29/18 01/29/18 History Acetaminophen Tab [Tylenol] 650 mg PO Q6HR PRN tab 02/01/18 Rx Multivitamins, Thera [Multivitamin 1 each PO DAILY@1200 #30 tab 02/01/18 Rx (formulary)] Allergies Allergy/AdvReac Type Severity Reaction Status Date / Time amlodipine AdvReac CONSTIPATIO Verified 01/29/18 12:20 N atenolol AdvReac MALE ED Verified 01/29/18 12:20 hydrochlorothiazide AdvReac RENAL Verified 01/29/18 12:20 IMPAIRMENT pravastatin AdvReac Rash/Hives Verified 01/29/18 12:20 Physical Exam Vitals: Vital Signs Temp Pulse Pulse Resp BP BP Pulse Ox 01/30/18 05:40 98.2 F 58 L 20 125/78 96 01/29/18 23:00 98.9 F 67 18 146/69 93 L 01/29/18 18:36 97.3 F L 65 18 137/68 100 01/29/18 18:24 18 01/29/18 16:53 98.3 F 67 18 133/54 97 01/29/18 15:50 69 18 126/53 96 01/29/18 14:38 68 16 131/56 97 01/29/18 12:05 98.9 F 65 16 134/55 94 L Intake and Output 01/29/18 01/30/18 01/30/18 22:59 06:59 14:59 Output Total 300 400 Balance -300 -400 Output: Urine 300 400 Other: Voiding Method Toilet Weight 125.1 kg Gen: This is a morbidly obese 72-year-old male. He is sitting in a chair at the bedside and appears to be comfortable. No distress or respiratory distress noted. HEENT: Head is atraumatic, normocephalic. Pupils equal, round. Sclerae is anicteric. Oral mucous membranes are moist. He is complaining of a lesion on the back of his tongue which could not be visualized. No thrush noted. NECK: Supple. No JVD. No lymphadenopathy. No thyromegaly. LUNGS: Diminished in the bases but otherwise clear to auscultation. No wheezes or rhonchi. No intercostal retractions. HEART: Regular rate and rhythm. Systolic murmur. ABDOMEN: Morbidly obese Soft. Bowel sounds are present. No masses. No tenderness. EXTREMITIES: 1+ pedal edema bilaterally. Also noted to the left posterior calf and to the right distal lateral/posterior calf. Minimal drainage. No foul odor. Minimal erythema, positive guillermo/brown color changes. NEUROLOGICAL: Patient is awake, alert and oriented x3. Cranial nerves 2 through 12 are grossly intact. Generalized weakness noted Results Results: Laboratory Results WBC 7.0 k/uL (3.8-10.6) 01/30/18 09:44 RBC 3.56 m/uL (4.30-5.90) L 01/30/18 09:44 Hgb 11.2 gm/dL (13.0-17.5) L 01/30/18 09:44 Hct 34.4 % (39.0-53.0) L 01/30/18 09:44 MCV 96.4 fL (80.0-100.0) 01/30/18 09:44 MCH 31.3 pg (25.0-35.0) 01/30/18 09:44 MCHC 32.5 g/dL (31.0-37.0) 01/30/18 09:44 RDW 15.5 % (11.5-15.5) 01/30/18 09:44 Plt Count 326 k/uL (150-450) 01/30/18 09:44 Neutrophils % 73 % 01/30/18 09:44 Lymphocytes % 10 % 01/30/18 09:44 Monocytes % 9 % 01/30/18 09:44 Eosinophils % 7 % 01/30/18 09:44 Basophils % 0 % 01/30/18 09:44 Neutrophils # 5.1 k/uL (1.3-7.7) 01/30/18 09:44 Lymphocytes # 0.7 k/uL (1.0-4.8) L 01/30/18 09:44 Monocytes # 0.6 k/uL (0-1.0) 01/30/18 09:44 Eosinophils # 0.5 k/uL (0-0.7) 01/30/18 09:44 Basophils # 0.0 k/uL (0-0.2) 01/30/18 09:44 PT 12.9 sec (9.0-12.0) H 01/29/18 12:05 INR 1.2 (<1.2) H 01/29/18 12:05 APTT 35.3 sec (22.0-30.0) H 01/29/18 12:05 Sodium 133 mmol/L (137-145) L 01/30/18 09:44 Potassium 4.4 mmol/L (3.5-5.1) 01/30/18 09:44 Chloride 98 mmol/L (98-107) 01/30/18 09:44 Carbon Dioxide 22 mmol/L (22-30) 01/30/18 09:44 Anion Gap 13 mmol/L 01/30/18 09:44 BUN 59 mg/dL (9-20) H 01/30/18 09:44 Creatinine 3.66 mg/dL (0.66-1.25) H 01/30/18 09:44 Est GFR (CKD-EPI)AfAm 18 (>60 ml/min/1.73 sqM) 01/30/18 09:44 Est GFR (CKD-EPI)NonAf 16 (>60 ml/min/1.73 sqM) 01/30/18 09:44 Glucose 116 mg/dL (74-99) H 01/30/18 09:44 Plasma Lactic Acid Harman 1.6 mmol/L (0.7-2.0) 01/29/18 12:05 Calcium 9.0 mg/dL (8.4-10.2) 01/30/18 09:44 Magnesium 2.2 mg/dL (1.6-2.3) 01/29/18 12:05 Total Bilirubin 1.0 mg/dL (0.2-1.3) 01/29/18 12:05 AST 34 U/L (17-59) 01/29/18 12:05 ALT 35 U/L (21-72) 01/29/18 12:05 Alkaline Phosphatase 91 U/L (38-126) 01/29/18 12:05 Ammonia 19 umol/L (<30) 01/29/18 12:05 Total Creatine Kinase 442 U/L (55-170) H 01/29/18 12:05 CK-MB (CK-2) 9.9 ng/mL (0.0-2.4) H 01/29/18 12:05 CK-MB (CK-2) Rel Index 2.2 01/29/18 12:05 Troponin I <0.012 ng/mL (0.000-0.034) 01/29/18 12:05 NT-Pro-B Natriuret Pep 1890 pg/mL 01/29/18 12:05 Total Protein 6.8 g/dL (6.3-8.2) 01/29/18 12:05 Albumin 3.7 g/dL (3.5-5.0) 01/29/18 12:05 Urine Color Light Red 01/29/18 15:28 Urine Appearance Cloudy (Clear) 01/29/18 15:28 Urine pH 5.0 (5.0-8.0) 01/29/18 15:28 Ur Specific [place] 1.014 (1.001-1.035) 01/29/18 15:28 Urine Protein 1+ (Negative) H 01/29/18 15:28 Urine Glucose (UA) Negative (Negative) 01/29/18 15: Urine Ketones Negative (Negative) 01/29/18 15:28 Urine Blood Trace (Negative) H 01/29/18 15:28 Urine Nitrite Negative (Negative) 01/29/18 15:28 Urine Bilirubin Negative (Negative) 01/29/18 15:28 Urine Urobilinogen <2.0 mg/dL (<2.0) 01/29/18 15:28 Ur Leukocyte Esterase Negative (Negative) 01/29/18 15:28 Urine RBC 1 /hpf (0-5) 01/29/18 15:28 Urine WBC 2 /hpf (0-5) 01/29/18 15:28 Ur Squamous Epith Cells 1 /hpf (0-4) 01/29/18 15:28 Urine Mucus Rare /hpf (None) H 01/29/18 15:28 Urine Opiates Screen Not Detected (NotDetected) 01/29/18 15:28 Ur Oxycodone Screen Detected (NotDetected) H 01/29/18 15:28 Urine Methadone Screen Not Detected (NotDetected) 01/29/18 15:28 Ur Propoxyphene Screen Detected (NotDetected) H 01/29/18 15:28 Ur Barbiturates Screen Not Detected (NotDetected) 01/29/18 15:28 U Tricyclic Antidepress Not Detected (NotDetected) 01/29/18 15:28 Ur Phencyclidine Scrn Not Detected (NotDetected) 01/29/18 15:28 Ur Amphetamines Screen Not Detected (NotDetected) 01/29/18 15:28 U Methamphetamines Scrn Not Detected (NotDetected) 01/29/18 15:28 U Benzodiazepines Scrn Detected (NotDetected) H 01/29/18 15:28 Urine Cocaine Screen Not Detected (NotDetected) 01/29/18 15:28 U Marijuana (THC) Screen Not Detected (NotDetected) 01/29/18 15:28 CBC & Chem 7: 02/01/18 10:28 12 10:28 Labs: Abnormal Lab Results - Last 24 Hours (Table) 01/29/18 01/29/18 01/29/18 Range/Units 12:05 12:05 12:05 WBC 15.3 H (3.8-10.6) k/uL RBC 3.66 L (4.30-5.90) m/uL Hgb 11.4 L (13.0-17.5) gm/dL Hct 35.0 L (39.0-53.0) % RDW 15.7 H (11.5-15.5) % Neutrophils # 12.7 H (1.3-7.7) k/uL Lymphocytes # 0.6 L (1.0-4.8) k/uL Monocytes # 1.2 H (0-1.0) k/uL PT (9.0-12.0) sec INR (<1.2) APTT (22.0-30.0) sec Sodium 132 L (137-145) mmol/L Potassium 5.7 H (3.5-5.1) mmol/L Chloride 96 L (98-107) mmol/L BUN 68 H (9-20) mg/dL Creatinine 4.84 H (0.66-1.25) mg/dL Total Creatine Kinase 442 H (55-170) U/L CK-MB (CK-2) 9.9 H (0.0-2.4) ng/mL Urine Protein (Negative) Urine Blood (Negative) Urine Mucus (None) /hpf Ur Oxycodone Screen (NotDetected) Ur Propoxyphene Screen (NotDetected) U Benzodiazepines Scrn (NotDetected) 01/29/18 01/29/1818 Range/Units 12:05 15:28 15:28 WBC (3.8-10.6) k/uL RBC (4.30-5.90) m/uL Hgb (13.0-17.5) gm/dL Hct (39.0-53.0) % RDW (11.5-15.5) % Neutrophils # (1.3-7.7) k/uL Lymphocytes # (1.0-4.8) k/uL Monocytes # (0-1.0) k/uL PT 12.9 H (9.0-12.0) sec INR 1.2 H (<1.2) APTT 35.3 H (22.0-30.0) sec Sodium (137-145) mmol/L Potassium (3.5-5.1) mmol/L Chloride (98-107) mmol/L BUN (9-20) mg/dL Creatinine (0.66-1.25) mg/dL Total Creatine Kinase (55-170) U/L CK-MB (CK-2) (0.0-2.4) ng/mL Urine Protein 1+ H (Negative) Urine Blood Trace H (Negative) Urine Mucus Rare H (None) /hpf Ur Oxycodone Screen Detected H (NotDetected) Ur Propoxyphene Screen Detected H (NotDetected) U Benzodiazepines Scrn Detected H (NotDetected) Microbiology - Last 24 Hours (Table) 01/29/18 13:30 Gram Stain - Preliminary Ankle - Left Wound Culture - Preliminary 01/29/18 13:30 Anaerobic Culture - Preliminary Ankle - Left Assessment and Plan Plan: This is a 72-year-old presented to the hospital with cellulitis of the bilateral lower extremity with chronic diabetic ulcers. Patient is currently on vancomycin which will be discontinued due to renal failure. Patient did receive 1 dose of Zosyn in the ER. Patient will be started on ceftriaxone. Local wound care will be addressed. Wound culture is in progress and blood culture is received. Nephrology is on for acute kidney injury. Continue supportive care. Further recommendations as patient progresses. The above dictated assessment and findings were discussed with Dr. Gonsalez. The impression and plan of care have been directed as dictated. Yolanda Gorman nurse practitioner acting as scribe for Dr. Gonsalez.
[2018-01-30 14:33] VITALS: BMI 40.7
[2018-01-30] MEDS: cefTRIAXone 2,000 MG in SODIUM CHLORIDE 0.9% 100 ML IVPB SCH (15:26)
[2018-01-30] MEDS: RIVAROXABAN 15 MG TAB PO SCH (16:37)
--- NOTE | 2018-01-30 19:23 | CONS ---
CONSULTATION REASON FOR CONSULT: Renal failure. HISTORY OF PRESENT ILLNESS: Patient is a 72-year-old male who was admitted to the hospital yesterday with complaints of drainage from his right lower extremity wound. The patient states he had a scab which came off and there has been some drainage and discoloration of the skin since then. The patient has had increased swelling in his lower extremities as well. He denies any significant chest pains or shortness of breath. Serum creatinine was 4.8 mg/dL on admission. This morning it is at 3.6. Potassium was 5.7 and it is now improved to 4.4. Review of previous labs shows in April of 2017, serum creatinine was 1.3 mg/dL. Blood pressure was not low on this admission. The patient denies any use of nonsteroidal anti-inflammatory agents. He is not on PIOTR inhibitors at home prior to admission. The patient denies any trouble voiding. His chest x-ray from this admission showed evidence of CHF. Currently, patient is not on any diuretics or IV fluids. He did get IV fluids initially in the ER on admission. The patient also got a dose of vancomycin, which is now discontinued. PAST MEDICAL HISTORY: Significant for chronic atrial fibrillation, chronic lower extremity venous stasis, coronary artery disease with coronary stent placement, history of IA, previous exposure to Agent [place], history of gout, restless legs syndrome. PAST SURGICAL HISTORY: Cardiac catheterization with 3 coronary stents, tonsillectomy, surgery on right hand after injury. SOCIAL HISTORY: Negative for smoking, drug abuse or alcohol abuse. MEDICATIONS: Medications at home prior to admission included Prozac, Trandate, Hytrin, Imdur, Xarelto, Nitrostat, Colcrys, Ativan, Ranexa, Desyrel, Zyloprim, Neurontin, potassium. ALLERGIES: INCLUDE AMLODIPINE WHICH CAUSES CONSTIPATION, ATENOLOL CAUSES ERECTILE DYSFUNCTION, HYDROCHLOROTHIAZIDE CAUSED WEAKENING KIDNEY FUNCTION, PRAVASTATIN CAUSED RASH AND HIVES. REVIEW OF SYSTEMS: As per HPI. Other systems negative. EXAMINATION: Patient is currently comfortable, awake. He is not in any acute distress. Blood pressure this afternoon was 160/67, heart rate 52 per minute. He is afebrile. Examination of the heart: S1, S2. Examination of the lungs: Bilateral breath sounds are heard. Abdomen is soft, obese, nontender. Examination of lower extremities shows chronic skin changes, chronic edema bilaterally with pigmentation of the skin noted as well. LAB: Show sodium 133, potassium 4.4, chloride 98, BUN 59, serum creatinine 3.6, hemoglobin 11.2 g/dL. UA showed 1+ protein, trace blood. Drug screen was positive for oxycodone, propoxyphene, and benzos. Chest x-ray showed evidence of mild CHF. ASSESSMENT: 1. Acute kidney injury, mostly cardiorenal and possibly obstructive uropathy. Need to rule out urine retention. I will check an ultrasound of the kidneys as well. I agree with discontinuation of vancomycin. Repeat labs in a.m. and continue off of IV fluids. I will start him on low-dose loop diuretics. 2. Chronic kidney disease with previous creatinine at 1.3 in April of 2017. Etiology is likely nephrosclerosis, however, UA shows 1+ protein. This will need to be further worked up. 3. Hypertension, controlled. 4. History of gout, maintained on Colcrys. 5. Coronary artery disease status post cardiac catheterization. 6. Chronic atrial fibrillation maintained on anticoagulation. PLAN: Start low-dose loop diuretics. Repeat labs in a.m. Check ultrasound of the kidneys. Check postvoid residual to rule out underlying urine retention and continue to avoid nephrotoxic agents. Thank you for this consultation. We will continue to follow the patient with you during his hospitalization. MMODL / IJN: [id number] /
[2018-01-30] MEDS: ASPIRIN 81 MG PO SCH (21:19)
[2018-01-31] MEDS: traZODone HCL 100 MG TAB PO SCH ×2 (00:25→23:02)
--- NOTE | 2018-01-31 00:25 | P.CON ---
Consult Note - . Consult date: 01/30/18 Assessment/Plan:: This is a 72-year-old male patient who was Out into [facility] emergency center due to mental status changes. He had a previous fall 2 days ago for which she states he fell onto his back and then also hit his head with no loss of consciousness. Patient was evaluated in the ER and found to be afebrile, white count was 15.3, hemoglobin 11.4, BUN 68 and creatinine 4.84, potassium 5.7. Patient does have underlying chronic kidney disease stage III and has had episodes of acute kidney injury. CK was 442, proBNP 1890, troponin negative. Urine drug screen was positive for oxycodone, propoxyphene, benzodiazepines. Urinalysis cloudy, trace blood, nitrate and leukoesterase were negative. Wound culture was obtained from the left ankle. CAT scan of the brain showed no acute findings. Chest x-ray showed early heart failure. [facility] and continued on vancomycin. There is a consult in place for nephrology. At the time of this interview, patient is awake and alert he is able to answer most questions. He states he has had problems with his lower extremity wound since May but noted the patient had an admission in December 2016 which time he was treated for bilateral lower extremity cellulitis. He states he initially had a wound on the left calf area from scratching his leg with his right foot and scraped it with is toenail. He states he has gone [facility] and has been unhappy with care as he has not had significant improvement. Patient is unsure if he's been on antibiotics. Patient presents with wounds to the left leg and right leg. He denies any injury to the right leg to cause wound. Patient is complaining of a lesion on the back of his tongue which was not able to be visualized. He is also complaining of constipation for which he states he received an enema with good results at home prior to admission. Please see the consult note as dictated by nurse practitioner Yolanda Tamayodariel. As noted pleasant 72-year-old gentleman who has a history of service in [place] and is [facility] by the [facility] [place] and [place]. Apparently has significant coronary disease and apparently cardiac vascular disease is so severe he is not a candidate for surgical interventions. Relates that he has been evaluated in the to await compression pumps for his lower extremities to try to improve the difficulties. He does not tolerate compression wraps at all. It is noted he is losing and dripping from both legs. He relates he cannot tolerate elevation or compression. This of course makes it extremely difficult to try to have any improvement. He is going to allow some dressings to go into place to absorb some drainage and then a light gauze to keep into place. He is willing to try the sequential pumps here to see if they can help. With his multiple troubles antibiotic therapy has been streamlined to ceftriaxone pending culture results. With the acute kidney injury trying to avoid vancomycin at this time. The patient relates that [facility] and if possible like to get those data to help us with her choices while he is here. He is encouraged to elevate his legs. Multivitamin with zinc will be added and we shall monitor. I agree with evaluation, assessment and plan this dictated by nurse practitioner Mrs. Yolanda Gorman.
[2018-01-31] MEDS: DOXAZOSIN 2 MG TAB PO SCH (00:26)
[2018-01-31] MEDS: COLCHICINE 0.6 MG EACH PO SCH (00:26)
--- NOTE | 2018-01-31 02:27 | P.PN ---
Subjective Progress Note Date: 01/30/18 Principal diagnosis: Bilateral lower extremity cellulitis and chronic venous stasis Patient is a 72-year-old male with a known history of atrial fibrillation on anticoagulation, chronic lower extremity venostasis, coronary artery disease with stent placement, chronic CHF with diastolic dysfunction and previous history of lower extremities cellulitis was brought to the hospital by EMS due to altered mental status. Patient was more confused this morning and unable to arouse when he came to the hospital. Patient had subjective chills and confused and thought it was early 90s. Otherwise no fever. No cough or sputum production. No chest pain or shortness of breath. Patient does have bilateral lower extremities discoloration and venous ulcers. Patient does have leukocytosis on admission. Patient also having worsening renal function with elevated BUN and creatinine level. Patient mental status did improve with fluid bolus and antibiotics in the form of Zosyn and vancomycin. ID and nephrology was consulted. CT head showed atrophy and periventricular white matter ischemic changes. Chest x-ray showed clinical correlation recommended for volume overload or early congestive heart failure. WBC 15.3, creatinine 4.8. Creatinine was 1.57 in December 2017. 01/30/2018 Patient says that his leg pain is better today. No fever no chills. Leukocytosis is resolved. Renal function slightly improved with creatinine level III.66. Antibiotics have been changed to ceftriaxone 2 g daily. Vancomycin has been discontinued especially in the setting of acute kidney injury. ID and nephrology is following. Otherwise patient denied any complaints of chest pain or shortness of breath. No nausea vomiting or abdominal pain. Mental status is at baseline now. Discussed with the patient regarding medical condition detail. Current medications reviewed. Objective - Vital Signs Vital signs: Vital Signs Temp 97.2 F L 01/30/18 23:00 Pulse 61 01/30/18 23:00 Resp 18 01/30/18 23:00 BP 136/54 01/30/18 23:00 Pulse Ox 97 01/30/18 23:00 Intake & Output 01/30/18 01/30/18 01/31/18 06:59 18:59 06:59 Output Total 700 Balance -700 Weight 125.1 kg 125.1 kg Output: Urine 700 Other: Voiding Method Toilet Toilet # Voids 3 1 - Exam Patient is lying in the bed comfortably, no acute distress, awake alert and oriented.. HEENT: Normocephalic. Neck is supple. Pupils reactive. Nostrils clear. Oral cavity is moist. Ears reveal no drainage. Neck reveals no JVD, carotid bruits, or thyromegaly. CHEST EXAMINATION: Trachea is central. Symmetrical expansion. Bibasilar diminished air entry. Lung woodward clear to auscultation and percussion. CARDIAC: Normal S1, S2 with no gallops. No murmurs ABDOMEN: Soft. Bowel sounds normal. No organomegaly. No abdominal bruits. Extremities: Bilateral lower extremities dark discoloration and swelling with ulceration. Neurologically awake, alert, oriented x2-3 with well-coordinated movements. No focal deficits noted Skin: No rash or skin lesions. Psychiatric: Coperative. Denied any suicidal ideation. Musculoskeletal: No joint swelling or deformity. Normal range of motion. - Labs CBC & Chem 7: 01/30/18 09:44 01/30/18 09:44 Labs: Abnormal Lab Results - Last 24 Hours (Table) 01/30/18 01/30/18 Range/Units 09:44 09:44 RBC 3.56 L (4.30-5.90) m/uL Hgb 11.2 L (13.0-17.5) gm/dL Hct 34.4 L (39.0-53.0) % Lymphocytes # 0.7 L (1.0-4.8) k/uL Sodium 133 L (137-145) mmol/L BUN 59 H (9-20) mg/dL Creatinine 3.66 H (0.66-1.25) mg/dL Glucose 116 H (74-99) mg/dL Microbiology - Last 24 Hours (Table) 01/29/18 12:05 Blood Culture - Preliminary Blood No Growth after 24 hours 01/29/18 13:30 Gram Stain - Preliminary Ankle - Left Wound Culture - Preliminary 01/29/18 13:30 Anaerobic Culture - Preliminary Ankle - Left Assessment and Plan Assessment: Altered mental status likely due to metabolic encephalopathy. Improved. Bilateral lower extremities cellulitis Chronic bilateral lower extremities venous stasis/swelling with discoloration Acute on chronic kidney disease stage III. Creatinine greater than 4. 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 Chronic pain syndrome Plan: Patient was given fluid bolus in the ER. Gentle hydration due to history of CHF. Continue with antibiotics in the form of ceftriaxone. ID and nephrology is following. Continue the home medications and follow up closely. Mental status is at baseline now.. Further recommendations based on the clinical course. Prognosis is guarded. Time with Patient: Greater than 30
[2018-01-31] MEDS: cefTRIAXone 2,000 MG in SODIUM CHLORIDE 0.9% 100 ML IVPB SCH (07:54)
[2018-01-31] MEDS: FUROSEMIDE 10 MG/ML 4 ML VIAL IV SCH (07:55)
[2018-01-31] MEDS: RANOLAZINE 500 MG TAB.ER.12H PO SCH ×2 (07:57→23:04)
[2018-01-31] MEDS: ALLOPURINOL 100 MG TAB PO SCH (07:58)
[2018-01-31] MEDS: LABETALOL 200 MG TAB PO SCH ×2 (07:59→23:02)
[2018-01-31] MEDS: ISOSORBIDE MONONITRATE ER 60 MG TAB.ER.24H PO SCH (07:59)
[2018-01-31] MEDS: GABAPENTIN 100 MG CAP PO SCH ×2 (07:59→23:03)
[2018-01-31] MEDS: FLUoxetine HCL 20 MG CAP PO SCH (07:59)
--- NOTE | 2018-01-31 08:10 | US ---
EXAMINATION TYPE: US kidneys/renal and bladder DATE OF EXAM: 01/31/2018 COMPARISON: Renal ultrasound December 27, 2016 CLINICAL HISTORY: rf. Renal failure EXAM MEASUREMENTS: Right Kidney: 11.4 x 5.5 x 3.9 cm Left Kidney: 12.4 x 4.5 x 4.4 cm Post Void Residual Volume: not assessed on inpatient Right Kidney: No hydronephrosis or masses seen ; crescent shaped hypoechoic to anechoic area seen adj acent to periphery is sonographic "sweat sign" which suggests renal failure Left Kidney: No hydronephrosis seen; cortical cyst seen upper medial pole = 1.5 x 1.6 x 1.3cm; small crescent shaped hypoechoic to anechoic area noted adjacent to periphery is sonographic "sweat sign" which suggests renal failure Bladder: wnl Bilateral Jets seen: yes There is no evidence for hydronephrosis at this point in time. Cortical thinning in both kidneys is p resent. No nephrolithiasis is seen. The urinary bladder is poorly distended and thus suboptimally ev aluated. Bilateral ureteral jets are seen. IMPRESSION: Findings consistent with chronic medical renal disease noted. No hydronephrosis is present bilaterall y.
[2018-01-31 11:17] LABS: Basophils # (A) 0.1 k/uL (0-0.2); Basophils % (A) 1 %; Eosinophils # (A) 0.5 k/uL (0-0.7); Eosinophils % (A) 9 %; HCT 35.5 % (39.0-53.0); HGB 11.7 gm/dL (13.0-17.5); Lymphocytes # (A) 0.7 k/uL (1.0-4.8); Lymphocytes % (A) 12 %; MCH 32.1 pg (25.0-35.0); MCV 97.1 fL (80.0-100.0); Mean Platelet Volume 7.4; Monocytes # (A) 0.8 k/uL (0-1.0); Monocytes % (A) 12 %; Neutrophils % (A) 64 %; Platelet Count 321 k/uL (150-450); RBC 3.66 m/uL (4.30-5.90); RDW 15.6 % (11.5-15.5); WBC 6.3 k/uL (3.8-10.6)
[2018-01-31] MEDS: MULTIVITAMINS, THERA 1 EACH TAB PO SCH (11:18)
[2018-01-31 11:19] LABS: Potassium 4.9 mmol/L (3.5-5.1)
[2018-01-31] MEDS: HYDROmorphone 1 MG/ML 1 ML SYRINGE IVP PRN ×2 (13:20→20:50)
[2018-01-31] MEDS: RIVAROXABAN 15 MG TAB PO SCH (17:30)
--- NOTE | 2018-01-31 17:34 | PN ---
PROGRESS NOTE DATE OF SERVICE: 01/31/2018 This 72-year-old gentleman who was admitted with cellulitis and change in mental status is being closely monitored. The patient is on broad-spectrum IV antibiotics. Cultures are negative at this time. The patient is being closely monitored. Patient also has open areas of the leg. Infectious Disease is following the patient closely. Currently the patient is empirically on vancomycin as well as Rocephin. Past medical history reviewed. REVIEW OF SYSTEMS: CARDIOVASCULAR SYSTEM: No angina, palpitations. RESPIRATORY SYSTEM: No cough, hemoptysis. GI: As mentioned earlier. : No dysuria or retention. NERVOUS SYSTEM: As mentioned earlier. DERMATOLOGY: As mentioned earlier. CURRENT MEDICATIONS: Reviewed. They include: 1. Tylenol 650 q.6 p.r.n. 2. Zyloprim 100 mg p.o. daily. 3. Aspirin 81 mg p.o. daily. 4. Rocephin 2 grams daily. 5. Colcrys 0.6 daily. 6. Cardura 6 mg at bedtime. 7. Prozac 20 mg p.o. daily. 8. Lasix 40 mg daily. 9. Neurontin 100 mg b.i.d. 10.Dilaudid 0.5 mg q.4 p.r.n. 11.Imdur 60 mg p.o. daily. 12.Trandate. 13.Melatonin. 14.Multivitamins. 15.Narcan. 16.Nitrostat. 17.Oxy-IR. 18.K-Dur. 19.Ranexa. 20.Xarelto. 21.Requip. 22.Desyrel. PHYSICAL EXAMINATION: The patient is alert, oriented x3. Pulse 58, blood pressure 148/65, respiration 18, temperature 97.9, pulse ox 96% on room air. HEENT: Conjunctivae normal. Oral mucosa moist. NECK: No jugular venous distention. No carotid bruit. No lymph node enlargement. CARDIOVASCULAR SYSTEM: S1, S2 muffled. RESPIRATORY SYSTEM: Breath sounds diminished at the bases. A few scattered rhonchi and crackles. Kyphoscoliosis present. Abdomen is soft, nontender, obese. LEGS: Bilateral leg cellulitis and edema, swelling and erythema, cellulitis; also open areas on the posterior part also present. NERVOUS SYSTEM: No focal deficits. LABS: Labs at this time show WBC 6.3, hemoglobin 11.7, sodium 133. Creatinine is 2.77. Other labs are reviewed. ASSESSMENT: 1. Acute bilateral leg cellulitis with sepsis, present on admission. 2. Acute renal failure, possibly multifactorial with chronic kidney disease, stage III, as baseline. 3. Change in mental status, metabolic encephalopathy, possibly secondary to sepsis. 4. Chronic degenerative joint disease and lumbar disc disease. 5. Chronic bilateral leg swelling. 6. Hypertension. 7. Hyperlipidemia. 8. Chronic congestive heart failure with chronic diastolic dysfunction. 9. Paroxysmal atrial fibrillation with anticoagulation. 10.Coronary artery disease with stent placement. 11.History of exposure to Agent [place]. 12.History of gout. 13.Restless legs syndrome. 14.Deep venous thrombosis prophylaxis. 15.Chronic pain syndrome. RECOMMENDATIONS AND DISCUSSION: I recommend to continue current medication, continue symptomatic treatment. Continue with the diuretics cautiously. Continue with antibiotics. We will continue to monitor. Local treatment. Closely follow with Nephrology. Infectious disease evaluation. live study manager/social service manager to address the social home situation as well in case of any IV antibiotics. Otherwise, creatinine is 2.71, down from 4.84 from admission. Further recommendations to follow. White count is also down to 6.3. Once again, the overall prognosis is guarded. Further recommendations to follow. MMODL / IJN: [id number] /
[2018-01-31] MEDS ORDERED: ARTIFICIAL TEARS-HYPROMELLOSE DROPS 15 ML BTL BOTH EYES PRN (20:35)
[2018-01-31] MEDS: ASPIRIN 81 MG PO SCH (23:03)
[2018-01-31 23:45] VITALS: PULSE 60; RESP 18
--- NOTE | 2018-01-31 23:54 | PN ---
PROGRESS NOTE The patient is seen for followup of acute kidney injury. Renal function has been improving with creatinine down from 4.8 to 2.7 mg/dL. Previous creatinine was as low as 1.3 on 04/27/2017. Currently, patient is maintained on IV Lasix and he states overall he is feeling fair. He does have chronic edema of his lower extremities. PHYSICAL EXAMINATION: On examination today, blood pressure was 179/75, heart rate 53 per minute. Patient is afebrile. Examination of the heart S1, S2. Examination of the lungs bilateral breath sounds are heard. ABDOMEN: Soft, obese. Examination of lower extremities shows chronic skin changes. Edema 2+ bilaterally. JANITORIAL SUPERVISOR exam is grossly intact. LABS: Reveal sodium of 133, potassium 4.9, BUN 55, serum creatinine 2.7, hemoglobin 11.7 g/dL. ASSESSMENT: 1. Acute kidney injury, nonoliguric, mainly cardiorenal. No evidence of obstruction noted on ultrasound. Maintain the loop diuretics. Renal function continues to improve. 2. Chronic kidney disease with previous creatinine 1.3 in April of 2017 secondary to nephrosclerosis. However, there is 1+ protein on the UA which may need further workup. 3. Hypertension, controlled. 4. Coronary artery disease status post cardiac catheterization. 5. Chronic atrial fibrillation with controlled ventricular response maintained on anticoagulation. 6. History of gout, currently on Colcrys. PLAN: Continue with the current dose of Lasix. Repeat labs in a.m. Possible discharge tomorrow. Patient will need outpatient followup for CKD and further workup for the mild proteinuria. MMODL / IJN: [id number] /
[2018-02-01] MEDS: DOXAZOSIN 2 MG TAB PO SCH (00:14)
[2018-02-01] MEDS: COLCHICINE 0.6 MG EACH PO SCH (00:15)
[2018-02-01 06:33] VITALS: BP 184/84; TEMP 97.8
[2018-02-01] MEDS: ISOSORBIDE MONONITRATE ER 60 MG TAB.ER.24H PO SCH (08:54)
[2018-02-01] MEDS: FUROSEMIDE 10 MG/ML 4 ML VIAL IV SCH (08:54)
[2018-02-01] MEDS: LABETALOL 200 MG TAB PO SCH (08:54)
[2018-02-01] MEDS: FLUoxetine HCL 20 MG CAP PO SCH (08:55)
[2018-02-01] MEDS: ALLOPURINOL 100 MG TAB PO SCH (08:55)
[2018-02-01] MEDS: RANOLAZINE 500 MG TAB.ER.12H PO SCH (08:56)
[2018-02-01] MEDS: GABAPENTIN 100 MG CAP PO SCH (08:56)
[2018-02-01] MEDS: cefTRIAXone 2,000 MG in SODIUM CHLORIDE 0.9% 100 ML IVPB SCH (08:56)
[2018-02-01] MEDS: HYDROmorphone 1 MG/ML 1 ML SYRINGE IVP PRN (10:44)
[2018-02-01] MEDS: MULTIVITAMINS, THERA 1 EACH TAB PO SCH (10:45)
[2018-02-01 10:47] LABS: Basophils # (A) 0.1 k/uL (0-0.2); Basophils % (A) 1 %; Eosinophils # (A) 0.7 k/uL (0-0.7); Eosinophils % (A) 9 %; HCT 36.6 % (39.0-53.0); HGB 11.7 gm/dL (13.0-17.5); Lymphocytes # (A) 0.9 k/uL (1.0-4.8); Lymphocytes % (A) 13 %; MCH 30.8 pg (25.0-35.0); MCHC 32.1 g/dL (31.0-37.0); Mean Platelet Volume 6.7; Monocytes # (A) 0.8 k/uL (0-1.0); Monocytes % (A) 10 %; Neutrophils # (A) 4.8 k/uL (1.3-7.7); Neutrophils % (A) 65 %; Platelet Count 330 k/uL (150-450); RBC 3.81 m/uL (4.30-5.90); RDW 15.4 % (11.5-15.5); WBC 7.5 k/uL (3.8-10.6)
[2018-02-01 11:12] LABS: Calcium 9.3 mg/dL (8.4-10.2); Potassium 4.6 mmol/L (3.5-5.1)
--- NOTE | 2018-02-01 20:25 | PN ---
PROGRESS NOTE Patient is seen for followup for acute kidney injury on top of chronic kidney disease. He states he feels well and is going home today. Blood pressure is elevated. This morning blood pressure was 184/84, heart rate 60 per minute. Patient is afebrile. Examination of the heart S1, S2. Examination of the lungs bilateral breath sounds are heard. Abdomen is soft, nontender. Examination of lower extremity shows chronic skin changes, chronic pigmentation. Edema seems to have improved. LABS: Show sodium of 137, potassium 4.6, chloride 102, BUN 49, serum creatinine 2.35, hemoglobin 11.7 g/dL. ASSESSMENT: 1. Acute kidney injury, nonoliguric, currently improved, mainly cardiorenal. No evidence of obstructive uropathy. No nephrotoxic agents on board. The patient is maintained on IV Lasix. 2. Chronic kidney disease stage 3 with previous creatinine about 1.3 in April of 2017, mainly secondary to nephrosclerosis. Need to follow up as outpatient for workup for CKD and proteinuria. UA showed 1+ protein. This will need to be repeated. 3. Hypertension. Blood pressure had been controlled. It is currently elevated. This will be monitored. Patient should continue his current antihypertensive regimen. 4. Coronary artery disease, status post cardiac cath. 5. Chronic atrial fibrillation with controlled ventricular response. PLAN: Follow up as outpatient in about 1-2 weeks time. Continue with oral diuretics. Repeat labs as outpatient. MMODL / IJN: [id number] /
--- NOTE | 2018-02-01 22:15 | DS ---
DISCHARGE SUMMARY FINAL DIAGNOSES: 1. Acute bilateral leg cellulitis with sepsis, present on admission, improved. 2. Acute renal failure, possibly multifactorial, with chronic kidney disease, stage III, as baseline. 3. Change in mental status, metabolic encephalopathy, possibly secondary to sepsis, present on admission. 4. Chronic degenerative joint disease as well as lumbar disc disease. 5. Chronic bilateral leg swelling. 6. Hypertension. 7. Hyperlipidemia. 8. Chronic congestive heart failure with chronic diastolic dysfunction. 9. Paroxysmal atrial fibrillation with anticoagulation. 10.Coronary artery disease and stent placement. 11.History of exposure to Agent Peck. 12.History of gout. 13.History of restless legs syndrome. 14.History of deep venous thrombosis prophylaxis. 15.Chronic pain syndrome. DISCHARGE DISPOSITION: The patient will be discharged in stable condition with guarded prognosis. HISTORY OF PRESENT ILLNESS: This 72-year-old gentleman with a past medical history of multiple medical problems was admitted with acute bilateral leg cellulitis. Patient was treated with antibiotics. Patient also had renal failure. Patient improved significantly secondary to treatment. Nephrology saw the patient. Creatinine improved to 0.35, so the patient will be discharged in stable condition with guarded prognosis. Total time taken 35 minutes. On exam, vital signs are stable. CARDIOVASCULAR SYSTEM: S1, S2 muffled. ABDOMEN: Soft. RESPIRATORY: A few scattered rhonchi. LEGS: Bilateral leg cellulitis. DISCHARGE ADVICE AND MEDICATIONS: 1. Diet is cardiac. 2. Activity limited until followup. 3. Follow up with Dr. Rios in 2-3 days. 4. Follow up with primary physician in 2-3 days. 5. Antibiotics per Infectious Disease. 6. Local wound care per Infectious Disease. 7. Zyloprim 100 mg p.o. daily. 8. Aspirin 81 mg p.o. daily. 9. Colchicine 0.3 mg p.o. b.i.d. 10.Prozac 20 mg p.o. daily. 11.Neurontin 100 mg p.o. b.i.d. 12.Imdur 60 mg p.o. daily. 13.Trandate 600 mg p.o. b.i.d. 14.Ativan 1 mg p.o. t.i.d. 15.Nitrostat 0.4 sublingually p.r.n. 16.Roxicodone 10 mg p.o. t.i.d. 17.K-Dur 10 mEq p.o. daily. 18.Ranexa 1000 mg p.o. b.i.d. 19.Xarelto 15 mg with supper. 20.Requip 0.5 mg t.i.d. 21.Hytrin 8 mg at bedtime. 22.Desyrel 100 mg at bedtime. 23.Tylenol 650 q.6 p.r.n. 24.Multivitamins 1 p.o. daily. 25.Hold the pain medication if the patient is drowsy. Once again, the patient is being discharged in stable condition with guarded prognosis. MMODL / IJN: [id number] /
== END 2018-02-01 16:29 | disposition home or self-care (01) | DRG 871 ==
LOC: EC 11:50 → 4MS4W 14:12
PROVIDERS: ADMIT Internal Medicine; ATTEND Internal Medicine
DX: A41.9 Sepsis, unspecified organism (principal); G93.41 Metabolic encephalopathy; I13.0 Hypertensive heart and chronic kidney disease with heart failure and stage 1 through stage 4 chronic kidney disease, or unspecified chronic kidney disease; I50.32 Chronic diastolic (congestive) heart failure; L02.416 Cutaneous abscess of left lower limb; L03.115 Cellulitis of right lower limb; L03.116 Cellulitis of left lower limb; N17.9 Acute kidney failure, unspecified; E78.5 Hyperlipidemia, unspecified; E86.0 Dehydration; I48.0 Paroxysmal atrial fibrillation; G25.81 Restless legs syndrome; G89.4 Chronic pain syndrome; I25.10 Atherosclerotic heart disease of native coronary artery without angina pectoris; I25.2 Old myocardial infarction; I87.8 Other specified disorders of veins; F40.240 Claustrophobia; K59.00 Constipation, unspecified; M19.90 Unspecified osteoarthritis, unspecified site; M54.30 Sciatica, unspecified side; N18.3 Chronic kidney disease, stage 3 (moderate); R62.7 Adult failure to thrive; F32.9 Major depressive disorder, single episode, unspecified; M10.9 Gout, unspecified; R65.20 Severe sepsis without septic shock; M51.36 Other intervertebral disc degeneration, lumbar region; M47.9 Spondylosis, unspecified; I73.9 Peripheral vascular disease, unspecified; R60.9 Edema, unspecified; Z88.8 Allergy status to other drugs, medicaments and biological substances; Z79.01 Long term (current) use of anticoagulants; Z79.82 Long term (current) use of aspirin; Z79.899 Other long term (current) drug therapy; Z79.891 Long term (current) use of opiate analgesic; Z57.4 Occupational exposure to toxic agents in agriculture; Z95.5 Presence of coronary angioplasty implant and graft; Z80.3 Family history of malignant neoplasm of breast; Z82.49 Family history of ischemic heart disease and other diseases of the circulatory system; W19.XXXA Unspecified fall, initial encounter
CPT/HCPCS: 36415; 70450; 71046; 76770; 80048; 80053; 80202; 80306; 81001; 82140; 82550; 82553; 83605; 83735; 83880; 84484; 85025; 85610; 85730; 87040; 87070; 87075; 87205; 93005; 96365; 96366; 99285

== ENCOUNTER 2018-02-27 15:02 | Emergency (ER) | payer MEDICARE, OTHER ==
--- NOTE | 2018-02-27 17:15 | ED ---
General Adult HPI - General Chief complaint: Recheck/Abnormal Lab/Rx Stated complaint: abnormal labs Source: patient Mode of arrival: wheelchair Limitations: no limitations - History of Present Illness Initial comments: Dictation was produced using [employer] dictation software. please excuse any grammatical, word or spelling errors. Chief Complaint: 73-year-old male past medical history A. fib ablation , coronary artery disease, dyslipidemia, kidney disease presents with History of Present Illness: She [facility]. Is told to come to the emergency department for elevated potassium. Patient has been undergoing treatment for bilateral lower extremity cellulitis. Patient has clue multiple rounds of antibiotics with persistent symptoms. He does have a physician that he is saying that is managing this currently. Patient otherwise feels well. The ROS documented in this emergency department record has been reviewed and confirmed by me. Those systems with pertinent positive or negative responses have been documented in the HPI. All other systems are other negative and/or noncontributory. PHYSICAL EXAM: General Impression: Alert and oriented x3, not in acute distress HEENT: Normocephalic atraumatic, extra-ocular movements intact, pupils equal and reactive to light bilaterally, mucous membranes moist. Cardiovascular: Heart regular rate and rhythm, S1&S2 audible, no murmurs, rubs or gallops Chest: Lungs clear to auscultation bilaterally, no rhonchi, no wheeze, no rales Abdomen: Bowel sounds present, abdomen soft, non-tender, non-distended, no organomegaly Musculoskeletal: Pulses present and equal in all extremities, no peripheral edema Motor: Power 5/5 bilaterally, no focal deficits noted Neurological: CN II-XII grossly intact, no focal motor or sensory deficits noted Skin: Bilateral lower extremity pretibial skin weeping, erythema. No palpable crepitus. Psych: Normal affect and mood ED course: 73-year-old male presents with chief complaint of abnormal outpatient potassium lab draw. Potassium was high however he does not exactly value. Vital signs upon arrival are within acceptable limits. Patient has no other complaints at this time. Laboratory evaluation obtained. No leukocytosis. Rest of CBC is unremarkable. Sodium is 132. Creatinine is 2.56 which is at around patient's baseline. Glucose is 129. Patient feels well. States that he feels at baseline. They' re concerned that patient's symptoms could reflects cellulitis. Patient given prescription for Keflex. Told to follow-up care physician upon discharge. Potassium was normal on my evaluation. Patient told to return with any worsening symptoms especially worsening pain, fever, chills, constitutional symptoms. EKG did not show any signs to suggest hyperacute T waves or hyperkalemia. Otherwise EKG unremarkable. EKG interpretation: Ventricular rate 59, sinus bradycardia,. Interval to 22, QS 92, QTc 441. No DE prolongation , no QTC prolongation, no ST or T-wave changes noted. Overall, this EKG is unremarkable - Related Data Home Medications Medication Instructions Recorded Confirmed Aspirin 81 mg PO HS@2200 07/03/13 02/27/18 FLUoxetine HCL [PROzac] 20 mg PO DAILY@1000 07/03/13 02/27/18 Labetalol HCl [Trandate] 600 mg PO BID@1000,0 07/03/13 02/27/18 Terazosin [Hytrin] 8 mg PO HS@0000 12/25/13 02/27/18 Isosorbide Mononitrate ER [Imdur] 60 mg PO DAILY@1000 03/11/15 02/27/18 Rivaroxaban [Xarelto] 15 mg PO W/SUPPER 04/20/16 02/27/18 Nitroglycerin Sl Tabs [Nitrostat] 0.4 mg SUBLINGUAL Q5M PRN 12/25/16 02/27/18 rOPINIRole HCL [Requip] 0.5 mg PO TID@0000,1000,1700 12/25/16 02/27/18 Colchicine [Colcrys] 0.6 mg PO DAILY PRN 04/27/17 02/27/18 LORazepam [Ativan] 1 mg PO TID@0000,1000,1700 04/27/17 02/27/18 Ranolazine [Ranexa] 1,000 mg PO BID@0800,2200 04/27/17 02/27/18 oxyCODONE HCL [Roxicodone] 10 mg PO TID@0000,1000,1700 04/27/17 02/27/18 traZODone HCL [Desyrel] 100 mg PO HS@0000 04/27/17 02/27/18 Allopurinol [Zyloprim] 100 mg PO DAILY PRN 01/29/18 02/27/18 Gabapentin [Neurontin] 100 mg PO BID@1000,2200 01/29/18 02/27/18 Previous Rx's Medication Instructions Recorded Cephalexin [Keflex] 500 mg PO Q6HR 7 Days #30 cap 02/27/18 Allergies Allergy/AdvReac Type Severity Reaction Status Date / Time amlodipine AdvReac CONSTIPATIO Verified 02/27/18 17:15 N atenolol AdvReac MALE ED Verified 02/27/18 17:15 hydrochlorothiazide AdvReac RENAL Verified 02/27/18 17:15 IMPAIRMENT pravastatin AdvReac Rash/Hives Verified 02/27/18 17:15 Review of Systems ROS Statement: Those systems with pertinent positive or pertinent negative responses have been documented in the HPI. ROS Other: All systems not noted in ROS Statement are negative. Past Medical History Past Medical History: Atrial Fibrillation, Coronary Artery Disease (CAD), Heart Failure, Hyperlipidemia, Hypertension, Myocardial Infarction (AR) Additional Past Medical History / Comment(s): ? 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 pt stated has slept in recliner chair for past 10 years. gout in past. restless leg , leg swelling Last Myocardial Infarction Date:: 2009 History of Any Multi-Drug Resistant Organisms: None Reported Past Surgical History: Heart Catheterization With Stent, Tonsillectomy Additional Past Surgical History / Comment(s): [id number] stents, rt hand sx to repair severed lig/tendons(age 20) has limited use of index finger Past Anesthesia/Blood Transfusion Reactions: No Reported Reaction Additional Past Anesthesia/Blood Transfusion Reaction / Comment(s): clausterphobia Date of Last Stent Placement:: 2009 Past Psychological History: Depression Smoking Status: Never smoker Past Alcohol Use History: None Reported Past Drug Use History: None Reported - Past Family History Mother Family Medical History: Cancer Additional Family Medical History / Comment(s): breast cancer, heart problems was on warfarin(pt stated she bled out) Father Family Medical History: Coronary Artery Disease (CAD), Myocardial Infarction (AR ) Additional Family Medical History / Comment(s): Father had his 1st AR in his 50s and then from his 2nd AR at the age of 74yrs. General Exam Limitations: no limitations Course Vital Signs 02/27/18 02/27/18 15:24 19:08 Temperature 98.1 F 97.1 F L Pulse Rate 61 60 Respiratory 18 17 Rate Blood Pressure 153/62 121/63 O2 Sat by Pulse 98 100 Oximetry Medical Decision Making - Lab Data Result diagrams: 02/27/18 17:25 02/27/18 17:25 Lab Results 02/27/18 02/27/18 Range/Units 17:25 17:25 WBC 9.0 (3.8-10.6) k/uL RBC 3.76 L (4.30-5.90) m/uL Hgb 11.6 L (13.0-17.5) gm/dL Hct 36.3 L (39.0-53.0) % MCV 96.6 (80.0-100.0) fL MCH 30.8 (25.0-35.0) pg MCHC 31.8 (31.0-37.0) g/dL RDW 15.8 H (11.5-15.5) % Plt Count 345 (150-450) k/uL Neutrophils % 75 % Lymphocytes % 9 % Monocytes % 7 % Eosinophils % 6 % Basophils % 1 % Neutrophils # 6.7 (1.3-7.7) k/uL Lymphocytes # 0.8 L (1.0-4.8) k/uL Monocytes # 0.6 (0-1.0) k/uL Eosinophils # 0.6 (0-0.7) k/uL Basophils # 0.1 (0-0.2) k/uL Sodium 132 L (137-145) mmol/L Potassium 4.6 (3.5-5.1) mmol/L Chloride 96 L (98-107) mmol/L Carbon Dioxide 25 (22-30) mmol/L Anion Gap 11 mmol/L BUN 57 H (9-20) mg/dL Creatinine 2.56 H (0.66-1.25) mg/dL Est GFR (CKD-EPI)AfAm 28 (>60 ml/min/1.73 sqM) Est GFR (CKD-EPI)NonAf 24 (>60 ml/min/1.73 sqM) Glucose 129 H (74-99) mg/dL Calcium 9.6 (8.4-10.2) mg/dL Disposition Clinical Impression: Laboratory examination, Cellulitis Disposition: HOME SELF-CARE Condition: Fair Instructions: Cellulitis (ED) Prescriptions: Cephalexin [Keflex] 500 mg PO Q6HR 7 Days #30 cap Is patient prescribed a controlled substance at d/c from ED?: No Referrals: Jerod Braun MD [Primary Care Provider] - 1-2 days Time of Disposition: 19:26
[2018-02-27 17:47] LABS: Basophils # (A) 0.1 k/uL (0-0.2); Basophils % (A) 1 %; Eosinophils # (A) 0.6 k/uL (0-0.7); Eosinophils % (A) 6 %; HCT 36.3 % (39.0-53.0); HGB 11.6 gm/dL (13.0-17.5); Lymphocytes # (A) 0.8 k/uL (1.0-4.8); Lymphocytes % (A) 9 %; MCH 30.8 pg (25.0-35.0); MCHC 31.8 g/dL (31.0-37.0); MCV 96.6 fL (80.0-100.0); Mean Platelet Volume 6.2; Monocytes # (A) 0.6 k/uL (0-1.0); Monocytes % (A) 7 %; Neutrophils # (A) 6.7 k/uL (1.3-7.7); Neutrophils % (A) 75 %; Platelet Count 345 k/uL (150-450); RBC 3.76 m/uL (4.30-5.90); RDW 15.8 % (11.5-15.5)
[2018-02-27 18:00] LABS: Calcium 9.6 mg/dL (8.4-10.2); Potassium 4.6 mmol/L (3.5-5.1)
[2018-02-27 19:48] VITALS: BP 146/65; PULSE 57; RESP 18; TEMP 98.4
--- NOTE | 2018-03-02 02:41 | CDI ---
Dear Matt Craig DO: Please do addendum Physical Examination. Thank you, Oumou Fair, Hotel Service Supervisor. If you have any questions, please contact Business Objects Report Developer at [phone]. [facility]
== END 2018-02-27 19:46 | disposition home or self-care (01) ==
LOC: EC 15:02
DX: L03.116 Cellulitis of left lower limb (principal); L03.115 Cellulitis of right lower limb; E87.5 Hyperkalemia; I48.91 Unspecified atrial fibrillation; I11.0 Hypertensive heart disease with heart failure; I50.9 Heart failure, unspecified; I25.10 Atherosclerotic heart disease of native coronary artery without angina pectoris; I25.2 Old myocardial infarction; G25.81 Restless legs syndrome; F32.9 Major depressive disorder, single episode, unspecified; Z88.8 Allergy status to other drugs, medicaments and biological substances; Z79.01 Long term (current) use of anticoagulants; Z79.82 Long term (current) use of aspirin; Z79.891 Long term (current) use of opiate analgesic; Z79.899 Other long term (current) drug therapy; Z95.5 Presence of coronary angioplasty implant and graft; Z98.890 Other specified postprocedural states
CPT/HCPCS: 36415; 80048; 85025; 93005; 99283

== ENCOUNTER 2018-04-02 14:52 | Inpatient (IN) | payer OTHER, MEDICARE ==
[2018-04-02 16:44] LABS: Basophils # (A) 0.1 k/uL (0-0.2); Basophils % (A) 0 %; Eosinophils # (A) 0.3 k/uL (0-0.7); Eosinophils % (A) 1 %; HCT 31.5 % (39.0-53.0); HGB 10.4 gm/dL (13.0-17.5); Lymphocytes # (A) 0.8 k/uL (1.0-4.8); Lymphocytes % (A) 4 %; MCH 32.4 pg (25.0-35.0); MCV 98.1 fL (80.0-100.0); Monocytes # (A) 0.8 k/uL (0-1.0); Monocytes % (A) 3 %; Neutrophils # (A) 21.7 k/uL (1.3-7.7); Neutrophils % (A) 91 %; Platelet Count 396 k/uL (150-450); RBC 3.21 m/uL (4.30-5.90); RDW 15.4 % (11.5-15.5); WBC 23.8 k/uL (3.8-10.6)
[2018-04-02 16:56] LABS: Albumin 3.7 g/dL (3.5-5.0); Calcium 9.1 mg/dL (8.4-10.2); Potassium 4.2 mmol/L (3.5-5.1); Total Bilirubin 1.1 mg/dL (0.2-1.3); Total Protein 7.2 g/dL (6.3-8.2)
[2018-04-02] MEDS ORDERED: VANCOMYCIN IV PER PHARMACY 1 EACH MISC MISCELLANE PRN (16:56)
[2018-04-02] MEDS ORDERED: AMPICILLIN-SULBACTAM 3 GM in SODIUM CHLORIDE 0.9% 100 ML IVPB STA (17:01)
--- NOTE | 2018-04-02 17:19 | ED ---
General Adult HPI - General Source: patient, family, RN notes reviewed Mode of arrival: wheelchair Limitations: no limitations <Reyes Healy - Last Filed: 04/02/18 17:29> <Kobi Meneses - Last Filed: 04/02/18 17:36> - General Chief complaint: Extremity Problem,Nontraumatic Stated complaint: infection/right leg Time Seen by Provider: 04/02/18 15:28 - History of Present Illness Initial comments: Patient's a 73-year-old male presented to the emergency room today with a chief complaint of increased redness swelling to the right lower leg. Does admit to a chronic cellulitis [facility] States that his noticed increased swelling and redness. States that he has noticed foul order. Patient does admit that he has a wound on the left leg as well but this one seems to be doing RN. Patient denies any other complaints or symptoms. Patient denies any recent fever, chills, shortness of breath, chest pain, back pain, abdominal pain, nausea or vomiting, headaches or visual changes, or any other complaints. (Reyes Healy) - Related Data Home Medications Medication Instructions Recorded Confirmed Aspirin 81 mg PO HS@2200 07/03/13 04/02/18 FLUoxetine HCL [PROzac] 20 mg PO DAILY@1000 07/03/13 04/02/18 Labetalol HCl [Trandate] 600 mg PO BID@1000,0 07/03/13 04/02/18 Terazosin [Hytrin] 8 mg PO HS@0000 12/25/13 04/02/18 Isosorbide Mononitrate ER [Imdur] 30 mg PO DAILY@1000 03/11/15 04/02/18 Rivaroxaban [Xarelto] 15 mg PO W/SUPPER 04/20/16 04/02/18 rOPINIRole HCL [Requip] 0.5 mg PO TID@0000,1000,1700 12/25/16 04/02/18 LORazepam [Ativan] 1 mg PO TID@0000,1000,1700 04/27/17 04/02/18 Ranolazine [Ranexa] 1,000 mg PO BID@0800,2200 04/27/17 04/02/18 oxyCODONE HCL [Roxicodone] 10 mg PO TID@0000,1000,1700 04/27/17 04/02/18 traZODone HCL [Desyrel] 100 mg PO HS@0000 04/27/17 04/02/18 Allopurinol [Zyloprim] 100 mg PO DAILY PRN 01/29/18 04/02/18 Gabapentin [Neurontin] 100 mg PO BID@1000,2200 01/29/18 04/02/18 Bumetanide 4 mg PO HS 04/02/18 04/02/18 Allergies Allergy/AdvReac Type Severity Reaction Status Date / Time amlodipine AdvReac CONSTIPATIO Verified 04/02/18 16:14 N atenolol AdvReac MALE ED Verified 04/02/18 16:14 hydrochlorothiazide AdvReac RENAL Verified 04/02/18 16:14 IMPAIRMENT pravastatin AdvReac Rash/Hives Verified 04/02/18 16:14 Review of Systems ROS Other: All systems not noted in ROS Statement are negative. <Reyes Healy - Last Filed: 04/02/18 17:29> ROS Other: All systems not noted in ROS Statement are negative. <Kobi Meneses - Last Filed: 04/02/18 17:36> ROS Statement: Those systems with pertinent positive or pertinent negative responses have been documented in the HPI. Past Medical History Past Medical History: Atrial Fibrillation, Coronary Artery Disease (CAD), Heart Failure, Hyperlipidemia, Hypertension, Myocardial Infarction ([place]) Additional Past Medical History / Comment(s): ? 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 pt stated has slept in recliner chair for past 10 years. gout in past. restless leg , leg swelling Last Myocardial Infarction Date:: 2009 History of Any Multi-Drug Resistant Organisms: None Reported Past Surgical History: Heart Catheterization With Stent, Tonsillectomy Additional Past Surgical History / Comment(s): [id number] stents, rt hand sx to repair severed lig/tendons(age 20) has limited use of index finger Past Anesthesia/Blood Transfusion Reactions: No Reported Reaction Additional Past Anesthesia/Blood Transfusion Reaction / Comment(s): clausterphobia Date of Last Stent Placement:: 2009 Past Psychological History: Depression Smoking Status: Never smoker Past Alcohol Use History: None Reported Past Drug Use History: None Reported - Past Family History Mother Family Medical History: Cancer Additional Family Medical History / Comment(s): breast cancer, heart problems was on warfarin(pt stated she bled out) Father Family Medical History: Coronary Artery Disease (CAD), Myocardial Infarction ([place] ) Additional Family Medical History / Comment(s): Father had his 1st TN in his 50s and then from his 2nd TN at the age of 74yrs. <Reyes Healy - Last Filed: 04/02/18 17:29> General Exam Limitations: no limitations <Reyes Healy - Last Filed: 04/02/18 17:29> <Kobi Meneses - Last Filed: 04/02/18 17:36> - General Exam Comments Initial Comments: General: The patient is awake and alert, in no distress, and does not appear acutely ill. Eye: There is normal conjunctiva bilaterally. Ears, nose, mouth and throat: There are moist mucous membranes and no oral lesions. Neck: The neck is supple Cardiovascular: There is a regular rate and rhythm. No murmur, rub or gallop is appreciated. Respiratory: Lungs are clear to auscultation, respirations are non-labored, breath sounds are equal. No wheezes, stridor, rales, or rhonchi. Musculoskeletal: Normal ROM, no tenderness. Strength 5/5. Sensation intact. Pedal pulses equal bilaterally 2+. Neurological: A&O x 3. CN II-XII intact, There are no obvious motor or sensory deficits. Coordination appears grossly intact. Speech is normal. Skin: Patient does have increased redness erythema to the right lower extremity. No lymphangitic streaking. Large blister to the posterior aspect of the right calf. There is foul odor to the right leg. Psychiatric: Cooperative, appropriate mood & affect, normal judgment. (Reyes Healy) Course <Reyes Healy - Last Filed: 04/02/18 17:29> <Kobi Meneses - Last Filed: 04/02/18 17:36> Vital Signs 04/02/18 15:02 Temperature 98.6 F Pulse Rate 68 Respiratory 18 Rate Blood Pressure 147/74 O2 Sat by Pulse 97 Oximetry - Reevaluation(s) Reevaluation #1: 04/02/18 17:35 PA supervision: I proceeded [id number] evaluation the patient he does demonstrate evidence of right lower extremity wound infection and will follow- up Tabitha. He has had chills. He does have elevated white blood cell count. I did discuss case with Dr. Jeter. Patient will be admitted place an IV antibiotics and wound Center consultation. I do agree with the assessment and plan. (Kobi Meneses) Medical Decision Making - Lab Data Result diagrams: 04/02/18 16:25 04/02/18 16:25 <Reyes Healy - Last Filed: 04/02/18 17:29> - Lab Data Result diagrams: 04/02/18 16:25 04/02/18 16:25 <Kobi Meneses - Last Filed: 04/02/18 17:36> - Medical Decision Making Patient's labs been reviewed does show 23,000 white count. Patient's lactic acid is 1.7. Patient vitals are stable. Patient does have infection to the right lower extremity. There is foul smell. Patient started on antibiotics of both Unasyn, vancomycin here in the emergency room. Was discussed seen by attending physician Dr. Meneses. Case discussed with admitting physician Dr. Jeter who will admit the patient consult to infectious disease. (Reyes Healy ) - Lab Data Lab Results 04/02/18 04/02/18 04/02/18 Range/Units 16:25 16:25 16:40 WBC 23.8 H (3.8-10.6) k/uL RBC 3.21 L (4.30-5.90) m/uL Hgb 10.4 L (13.0-17.5) gm/dL Hct 31.5 L (39.0-53.0) % MCV 98.1 (80.0-100.0) fL MCH 32.4 (25.0-35.0) pg MCHC 33.0 (31.0-37.0) g/dL RDW 15.4 (11.5-15.5) % Plt Count 396 (150-450) k/uL Neutrophils % 91 % Lymphocytes % 4 % Monocytes % 3 % Eosinophils % 1 % Basophils % 0 % Neutrophils # 21.7 H (1.3-7.7) k/uL Lymphocytes # 0.8 L (1.0-4.8) k/uL Monocytes # 0.8 (0-1.0) k/uL Eosinophils # 0.3 (0-0.7) k/uL Basophils # 0.1 (0-0.2) k/uL Sodium 136 L (137-145) mmol/L Potassium 4.2 (3.5-5.1) mmol/L Chloride 98 (98-107) mmol/L Carbon Dioxide 26 (22-30) mmol/L Anion Gap 12 mmol/L BUN 50 H (9-20) mg/dL Creatinine 2.38 H (0.66-1.25) mg/dL Est GFR (CKD-EPI)AfAm 30 (>60 ml/min/1.73 sqM) Est GFR (CKD-EPI)NonAf 26 (>60 ml/min/1.73 sqM) Glucose 112 H (74-99) mg/dL Plasma Lactic Acid Harman 1.7 (0.7-2.0) mmol/L Calcium 9.1 (8.4-10.2) mg/dL Total Bilirubin 1.1 (0.2-1.3) mg/dL AST 29 (17-59) U/L ALT 23 (21-72) U/L Alkaline Phosphatase 84 (38-126) U/L Total Protein 7.2 (6.3-8.2) g/dL Albumin 3.7 (3.5-5.0) g/dL Urine Color Urine Appearance (Clear) Urine pH (5.0-8.0) Ur Specific [place] (1.001-1.035) Urine Protein (Negative) Urine Glucose (UA) (Negative) Urine Ketones (Negative) Urine Blood (Negative) Urine Nitrite (Negative) Urine Bilirubin (Negative) Urine Urobilinogen (<2.0) mg/dL Ur Leukocyte Esterase (Negative) Urine RBC (0-5) /hpf Urine WBC (0-5) /hpf Urine WBC Clumps (None) /hpf Urine Bacteria (None) /hpf Urine Mucus (None) /hpf 04/02/18 Range/Units 16:53 WBC (3.8-10.6) k/uL RBC (4.30-5.90) m/uL Hgb (13.0-17.5) gm/dL Hct (39.0-53.0) % MCV (80.0-100.0) fL MCH (25.0-35.0) pg MCHC (31.0-37.0) g/dL RDW (11.5-15.5) % Plt Count (150-450) k/uL Neutrophils % % Lymphocytes % % Monocytes % % Eosinophils % % Basophils % % Neutrophils # (1.3-7.7) k/uL Lymphocytes # (1.0-4.8) k/uL Monocytes # (0-1.0) k/uL Eosinophils # (0-0.7) k/uL Basophils # (0-0.2) k/uL Sodium (137-145) mmol/L Potassium (3.5-5.1) mmol/L Chloride (98-107) mmol/L Carbon Dioxide (22-30) mmol/L Anion Gap mmol/L BUN (9-20) mg/dL Creatinine (0.66-1.25) mg/dL Est GFR (CKD-EPI)AfAm (>60 ml/min/1.73 sqM) Est GFR (CKD-EPI)NonAf (>60 ml/min/1.73 sqM) Glucose (74-99) mg/dL Plasma Lactic Acid [place] (0.7-2.0) mmol/L Calcium (8.4-10.2) mg/dL Total Bilirubin (0.2-1.3) mg/dL AST (17-59) U/L ALT (21-72) U/L Alkaline Phosphatase (38-126) U/L Total Protein (6.3-8.2) g/dL Albumin (3.5-5.0) g/dL Urine Color Yellow Urine Appearance Turbid (Clear) Urine pH 5.5 (5.0-8.0) Ur Specific [place] 1.013 (1.001-1.035) Urine Protein 1+ H (Negative) Urine Glucose (UA) Negative (Negative) Urine Ketones Negative (Negative) Urine Blood Small H (Negative) Urine Nitrite Negative (Negative) Urine Bilirubin Negative (Negative) Urine Urobilinogen <2.0 (<2.0) mg/dL Ur Leukocyte Esterase Large H (Negative) Urine RBC 6 H (0-5) /hpf Urine WBC >182 H (0-5) /hpf Urine WBC Clumps Many H (None) /hpf Urine Bacteria Moderate H (None) /hpf Urine Mucus Rare H (None) /hpf Disposition Time of Disposition: 17:30 <Reyes Healy - Last Filed: 04/02/18 17:29> <Kobi Meneses - Last Filed: 04/02/18 17:36> Clinical Impression: Cellulitis of right leg Disposition: ADMITTED IP TO THIS [facility] Condition: Stable Referrals: Jerod Braun MD [Primary Care Provider] - 1-2 days
[2018-04-02 17:21] LABS: Appearance,Urine Turbid (Clear); Bacteria,Urine Moderate /hpf; Bilirubin,Urine Negative (Negative); Blood,Urine Small (Negative); Color,Urine Yellow; Glucose,Urine (UA) Negative (Negative); Ketones,Urine Negative (Negative); Leukocyte Esterase,Urine Large (Negative); Mucus,Urine Rare /hpf; Nitrite,Urine Negative (Negative); PH, Urine 5.5 (5.0-8.0); Protein,Urine 1+ (Negative); RBC,Urine 6 /hpf (0-5); Specific Gravity,Urine 1.013 (1.001-1.035); Urobilinogen,Urine <2.0 mg/dL (<2.0)
[2018-04-02] MEDS ORDERED: SODIUM CHLORIDE 0.9% 1,000 ML IV ONE (17:31)
[2018-04-02] MEDS ORDERED: ONDANSETRON 4 MG/2 ML VIAL IVP PRN (17:31)
[2018-04-02] MEDS ORDERED: NALOXONE 0.4 MG/ML 1 ML VIAL IV PRN (17:31)
[2018-04-02] MEDS ORDERED: VANCOMYCIN 2,000 MG in SODIUM CHLORIDE 0.9% 500 ML 500 ML IVPB ONE (18:00)
[2018-04-02] MEDS ORDERED: ALLOPURINOL 100 MG TAB PO PRN (20:01)
[2018-04-02] MEDS ORDERED: LORazepam 1 MG TAB PO PRN (20:01)
[2018-04-02] MEDS: BUMETANIDE 1 MG TAB PO SCH (21:14)
[2018-04-02] MEDS: RANOLAZINE 500 MG TAB.ER.12H PO SCH (21:20)
[2018-04-02] MEDS: LABETALOL 200 MG TAB PO SCH (21:20)
[2018-04-02] MEDS: GABAPENTIN 100 MG CAP PO SCH (21:20)
[2018-04-02] MEDS: ASPIRIN 81 MG PO SCH (21:21)
[2018-04-02] MEDS: HYDROmorphone 0.5 MG/0.5 ML SYRINGE IVP PRN (22:44)
[2018-04-02] MEDS: ceFAZolin IN SWFI 2 GM/20 ML SYRINGE IVP SCH (23:45)
[2018-04-02] MEDS: LORazepam 2 MG/ML INJ IV PRN (23:46)
[2018-04-02] MEDS: DOXAZOSIN 4 MG TAB PO SCH (23:46)
[2018-04-02] MEDS: traZODone HCL 100 MG TAB PO SCH (23:46)
[2018-04-03] MEDS ORDERED: AMPICILLIN-SULBACTAM 3 GM in SODIUM CHLORIDE 0.9% 100 ML IVPB SCH ×2
[2018-04-03] MEDS: HYDROmorphone 0.5 MG/0.5 ML SYRINGE IVP PRN ×4 (03:44→17:37)
[2018-04-03] MEDS: HYDROcodone/APAP 5-325MG 1 EACH TAB PO PRN ×3 (05:44→17:37)
--- NOTE | 2018-04-03 07:10 | HP ---
HISTORY AND PHYSICAL CHIEF COMPLAINT: Pain and swelling of both legs. HISTORY OF PRESENT ILLNESS: This is a 73-year-old gentleman with a past medical history of multiple medical problems such as history of hypertension, hyperlipidemia, history of CHF, paroxysmal atrial fibrillation, CAD, CABG, being followed by Dr. Grajeda in the outpatient setting and followed by [facility] and Dr. Lawson in the outpatient setting, was admitted with complaints of bilateral leg swelling and infections. The patient significantly had a blister on the right leg and the patient was recently admitted to [facility] with bilateral leg cellulitis and sepsis with renal failure , change in mental status, improved significantly during that admission. Currently, the patient is admitted with significant difficulty with the leg as mentioned earlier and patient has been closely monitored. There is no history of fever, rigors or chills. No headache, loss of consciousness, seizures at this time. The patient also noted a foul odor. PAST MEDICAL HISTORY: History of recent cellulitis as mentioned earlier. Otherwise atrial fibrillation, CAD, CHF, hypertension, hyperlipidemia, myocardial infarction, history of DJD, history of CAD with stent, depression. HOME MEDICATIONS: 1. Xarelto 50 mg at supper. 2. Desyrel 100 mg p.o. q.h.s. 3. Hytrin 8 mg p.o. q.h.s. 5. Aspirin 81 mg p.o. daily. 6. Zyloprim 100 mg p.o. daily. 7. Oxycodone 10 mg p.o. t.i.d. 8. Requip 0.5 mg t.i.d. 9. Ativan 1 mg p.o. t.i.d. 10.Imdur 30 mg p.o. daily. 11.Ranexa 1000 mg p.o. b.i.d. 12.Trandate 600 mg p.o. b.i.d. 13.Neurontin 100 mg p.o. b.i.d. 14.Prozac 20 mg p.o. daily. ALLERGIES: AMLODIPINE, ATENOLOL, HYDROCHLOROTHIAZIDE, PRAVASTATIN. FAMILY HISTORY: History of breast cancer. SOCIAL HISTORY: No history of smoking. No history of alcohol intake. REVIEW OF SYSTEMS: HEENT: Diminished hearing and diminished vision. CARDIOVASCULAR SYSTEM: As mentioned earlier. RESPIRATION: As mentioned earlier. GI: No nausea. : No dysuria. NERVOUS SYSTEM: No numbness or weakness. ALLERGY/IMMUNOLOGY: No history of asthma. MUSCULOSKELETAL: As mentioned earlier. RHEUMATOLOGY: Negative. ENDOCRINE: As mentioned earlier. CONSTITUTIONAL: As mentioned earlier. DERMATOLOGY: As mentioned earlier. PSYCHIATRY: As mentioned earlier. PHYSICAL EXAMINATION: Alert and oriented x3. Pulse is 68, blood pressure 160/72, respiration 18, temperature 99.2, pulse ox 98% on room air. HEENT: Conjunctivae normal, oral mucosa moist. NECK No jugular venous distention. No lymph node enlargement. CARDIOVASCULAR SYSTEM: S1, S2, muffled. RESPIRATORY SYSTEM: Breath sounds diminished at the bases, a few scattered rhonchi, no crackles. ABDOMEN: Soft, obese, nontender. LEGS: Bilateral leg edema, leg swelling and blisters on the right leg and continued area of the right leg also present. Pulses diminished bilaterally. NERVOUS SYSTEM: Higher functions as mentioned earlier, moves all four limbs, no focal motor deficits. LYMPHATICS: No lymph node enlargement in the neck or axillae. SKIN: As mentioned earlier. JOINTS: No active deforming arthropathy. LABS: WBC is 23, hemoglobin is 10.4. Creatinine is 2.38. During the last admission, it was 2.56 and worsened up to 4.84 previously. WBC more than 1/18. ASSESSMENT: 1. Acute bilateral leg cellulitis, right more than the left with possible sepsis , present on admission. 2. Acute urinary tract infection. 3. Chronic renal failure stage III. 4. History of atrial fibrillation paroxysmal with anticoagulation. 5. History of recent cellulitis with sepsis. 6. History of congestive heart failure with chronic diastolic dysfunction. 7. History of hyperlipidemia. 8. Hypertension. 9. History of myocardial infarction. 10.History of degenerative joint disease. 11.History of exposure to Agent [place]. 12.History of gout. 13.History of coronary artery disease, stent. 14.History of depression. RECOMMENDATIONS AND DISCUSSION: In this 73-year-old gentleman who presented with multiple complex medical issues , will monitor the patient closely, continue with the current management. Will obtain cultures, IV pain medications. Otherwise, I would also recommend Infectious Disease evaluation. Local treatment. I would recommend a combination of Zosyn and vanco. Continue to monitor, PT, OT will be evaluated. Social Work to evaluate the home situation. Prognosis guarded because of multiple complex medical issues. Further recommendations to follow. A copy of this will be forwarded to Dr. Lawson who is the primary physician. MMODL / IJN: [id number] / ROMAN
[2018-04-03 07:58] LABS: Basophils % (A) 0 %; Eosinophils # (A) 0.3 k/uL (0-0.7); Eosinophils % (A) 2 %; HCT 28.1 % (39.0-53.0); Lymphocytes # (A) 1.1 k/uL (1.0-4.8); Lymphocytes % (A) 9 %; MCH 31.8 pg (25.0-35.0); MCHC 31.9 g/dL (31.0-37.0); MCV 99.7 fL (80.0-100.0); Macrocytosis Slight; Mean Platelet Volume 6.6; Monocytes # (A) 0.5 k/uL (0-1.0); Monocytes % (A) 4 %; Neutrophils % (A) 83 %; Platelet Count 357 k/uL (150-450); RBC 2.82 m/uL (4.30-5.90); RDW 15.4 % (11.5-15.5); WBC 12.1 k/uL (3.8-10.6)
[2018-04-03 08:37] LABS: Albumin 3.1 g/dL (3.5-5.0); Calcium 8.7 mg/dL (8.4-10.2); Potassium 3.5 mmol/L (3.5-5.1); Total Bilirubin 0.8 mg/dL (0.2-1.3); Total Protein 6.3 g/dL (6.3-8.2)
--- NOTE | 2018-04-03 09:04 | CONS ---
CONSULTATION DATE OF SERVICE: #04/02/2018 REASON FOR CONSULTATION: Right lower extremity wound cellulitis. HISTORY OF PRESENT ILLNESS: The patient is a 73-year-old male with a past medical history significant for chronic nonhealing wound to his right lower extremity, currently being managed by his , usually applying some dressing and ABDs to keep the swelling down. Over the last few days the patient's leg has been more swollen and has been wound draining, slightly improved but did have some small swelling to the right leg with followup swelling and more swelling and redness. The patient complains of some dull aching pain to the leg. The pain is 4 to 5 related with these symptoms. The patient was brought into the ER for further evaluation. Patient has been evaluated by the ER physician, has been diagnosed with cellulitis. The patient was started on Unasyn and vancomycin. Infectious Disease was consulted for further recommendation regarding antibiotic therapy. REVIEW OF SYSTEMS: Positive points have been mentioned in the HPI. Review of systems has been negative. PAST MEDICAL HISTORY: Significant for chronic swelling to the lower extremities with the history of ulcer, atrial fibrillation, coronary artery disease, heart failure, hyperlipidemia, hypertension. PAST SURGICAL HISTORY: PTCA with stent, tonsillectomy, right hand surgery, . SOCIAL HISTORY: No history of smoking, drinking, or drug use. FAMILY HISTORY: Mother with history of breast cancer. Father with history of coronary artery disease. ALLERGIES: AMLODIPINE, ATENOLOL, HYDROCHLOROTHIAZIDE, PRAVASTATIN. MEDICATIONS: The patient is currently on Zyloprim, aspirin, Bumex, Cardura, Prozac, Neurontin, Dilaudid, Imdur, Lipitor, Narcan, Zofran, Xarelto, Requip. PHYSICAL EXAMINATION: blood pressure is 166/72 with a pulse of 68, temperature 98.2, he is 96% on room air. General description is an elderly male, up in the chair in no distress. HEENT: Shows pallor, no scleral icterus:, oral mucosa extremely dry. . NECK: Trachea central, no thyromegaly. LUNGS: Unlabored breathing with decreased breath sounds. No wheeze. HEART: S1, S2. Regular rate and rhythm. ABDOMEN: Soft, no tenderness, no guarding or rigidity. EXTREMITIES: 2+ edema to the feet, the patient did have right leg swelling and redness with some superficial wound with some soft tissue that was easily cleaned off with 4 x 4. NEUROLOGICAL: Patient is awake, alert, mood and affect normal. LABS: Hemoglobin is 10.4, white count of 3.8 with a BUN of 50, creatinine is 2.38. Urine has been positive. DIAGNOSTIC IMPRESSION AND PLAN: 1. Patient with right lower extremity weakness, with secondary cellulitis likely from a gram-positive skin kehinde less likely gram-negative infection. 2. Patient with elevated creatinine, high risk for nephrotoxicity from the vancomycin. PLAN: 1. Discontinue vancomycin and Unasyn. 2. Start the patient on cefazolin 2 g q.8 hours. 3. Aquacel Silver dressing to the right leg wound followed by ABD and an Dylan wrap to keep the swelling down. 4. Will follow up on clinical condition and culture to further adjust medication if needed. Thank you for this consultation. Will follow this patient with you. MMODL / IJN: [id number] /
[2018-04-03] MEDS: FLUoxetine HCL 20 MG CAP PO SCH (09:10)
[2018-04-03] MEDS: PANTOPRAZOLE 40 MG TABLET PO SCH (09:10)
[2018-04-03] MEDS: LABETALOL 200 MG TAB PO SCH ×2 (09:10→21:39)
[2018-04-03] MEDS: ISOSORBIDE MONONITRATE ER 30 MG TAB.ER.24H PO SCH (09:10)
[2018-04-03] MEDS: RANOLAZINE 500 MG TAB.ER.12H PO SCH (09:10)
[2018-04-03] MEDS: GABAPENTIN 100 MG CAP PO SCH ×2 (09:14→21:39)
[2018-04-03] MEDS: ceFAZolin IN SWFI 2 GM/20 ML SYRINGE IVP SCH (12:39)
[2018-04-03] MEDS ORDERED: ARTIFICIAL TEARS-HYPROMELLOSE DROPS 15 ML BTL BOTH EYES PRN (12:52)
[2018-04-03] MEDS: LORazepam 2 MG/ML INJ IV PRN (13:31)
[2018-04-03] MEDS ORDERED: VANCOMYCIN 2,000 MG in SODIUM CHLORIDE 0.9% 500 ML 500 ML IVPB ONE (14:00)
[2018-04-03] MEDS: RIVAROXABAN 15 MG TAB PO SCH (17:41)
--- NOTE | 2018-04-03 18:28 | PN ---
PROGRESS NOTE DATE OF SERVICE: 04/03/2018 This 73-year-old gentleman who was admitted with acute bilateral leg cellulitis and possible sepsis is on broad-spectrum IV antibiotics. Infectious Disease is also following the patient closely. The patient also has significant cellulitis. Patient is complaining of severe pain also. Patient is on intravenous pain medication. Patient has some amount of anxiety also. PHYSICAL EXAMINATION: Alert and oriented x3. Pulse 54, blood pressure 160/63, respiration 18, temperature 97.3, pulse ox 97% on room air. HEENT: Conjunctivae normal. NECK: No jugular venous distention. CARDIOVASCULAR SYSTEM: S1, S2 muffled. RESPIRATORY SYSTEM: Breath sounds diminished at the bases. Bilateral scattered rhonchi and crackles. ABDOMEN: Soft, non-tender. LEGS: Bilateral leg edema as well as significant erythema, cellulitis and denudation of the skin also present. NERVOUS SYSTEM: No focal deficit. LABS AT THIS TIME: WBC 12.1, hemoglobin 9, sodium 140, potassium 3.5, creatinine 2.25. UA noted; clumps. ASSESSMENT: 1. Acute bilateral leg cellulitis, right more than left, with possible sepsis, present on admission. 2. Acute urinary tract infection, present on admission, not related to King catheter. 3. Chronic renal failure, stage III. 4. History of atrial fibrillation, paroxysmal, with anticoagulation. 5. History of recent cellulitis with sepsis. 6. History of congestive heart failure with chronic diastolic dysfunction. 7. History of hyperlipidemia. 8. Hypertension. 9. History of myocardial infarction. 10.History of degenerative joint disease. 11.History of exposure to Agent [place]. 12.History of gout. 13.History of coronary artery disease and stent. 14.History of depression. RECOMMENDATIONS AND DISCUSSION: I recommend to continue current medication, continue with the monitoring, symptomatic treatment. Otherwise at this time I would recommend continuing with the broad spectrum IV antibiotics. Follow the cultures. I would recommend closely following with Infectious Disease. Pain medications. Guarded prognosis. Further recommendations to follow. MMODL / IJN: [id number] /
[2018-04-03] MEDS: ASPIRIN 81 MG PO SCH (21:39)
[2018-04-03] MEDS: TEMAZEPAM 15 MG CAP PO SCH (21:39)
[2018-04-04] MEDS: traZODone HCL 100 MG TAB PO SCH (00:04)
[2018-04-04] MEDS: RANOLAZINE 500 MG TAB.ER.12H PO SCH ×3 (00:05→21:24)
[2018-04-04] MEDS: PIPERACILLIN-TAZOBACTAM 3.375 GM in SODIUM CHLORIDE 0.9% 100 ML IVPB SCH ×3 (00:05→15:37)
[2018-04-04] MEDS: BUMETANIDE 1 MG TAB PO SCH ×2 (00:05→21:24)
[2018-04-04] MEDS: DOXAZOSIN 4 MG TAB PO SCH (00:05)
[2018-04-04] MEDS: HYDROmorphone 0.5 MG/0.5 ML SYRINGE IVP PRN ×2 (03:14→21:26)
--- NOTE | 2018-04-04 05:37 | PN ---
PROGRESS NOTE DATE OF SERVICE: 04/03/2018 REASON FOR FOLLOWUP: 1. Right lower extremity venous stasis ulcer and cellulitis. 2. UTI. 3. Bacteremia. INTERVAL HISTORY: The patient is afebrile. He has been breathing comfortably. Denies having any chest pain or cough. No abdominal pain. significant swelling to the right leg with minimal drainage. No diarrhea. REVIEW OF SYSTEMS: Positive points have been mentioned in HPI. Rest of the review of systems negative. PAST MEDICAL AND SURGICAL HISTORY: No new change. MEDICATIONS: Reviewed. PHYSICAL EXAMINATION: On examination, blood pressure 161/72 with a pulse 56, temperature 97.7. He is 99% on room air. General description is elderly male up in the chair in no distress. RESPIRATORY SYSTEM: Unlabored breathing, clear to auscultation anteriorly. HEART: S1, S2. Regular rate and rhythm. ABDOMEN; Soft, no tenderness. Right leg with venous stasis ulcer with minimal slough tissue. Redness has improved. Still has some drainage. LABS: Hemoglobin is 9, white count 12.1. BUN of 45, creatinine is 2.25. UA was positive. Blood culture with gram-negative bacilli. Wound culture currently pending. Urine also showing gram-negative bacilli. DIAGNOSTIC IMPRESSION AND PLAN: Patient with acute right lower extremity venous stasis ulcer with secondary cellulitis in this patient who also has component of urinary tract infection. now with evidence of bacteremia. We will obtain ultrasound of the kidney evidence of any obstructive uropathy. We will discontinue Unasyn. Start the patient on Zosyn 3.375 grams q.8 hours. Local wound care to the leg with an Aquacel silver dressing and Dylan wrap with area with most drainage. Given the patient . present at bedside. Multiple questions were answered. MMODL / IJN: [id number] /
[2018-04-04] MEDS ORDERED: HYDROPHILIC CREAM 120 GM JAR TOPICAL SCH (09:00)
[2018-04-04] MEDS: LABETALOL 200 MG TAB PO SCH ×2 (09:50→21:25)
[2018-04-04 09:52] LABS: Calcium 9.2 mg/dL (8.4-10.2); Potassium 3.9 mmol/L (3.5-5.1)
[2018-04-04] MEDS: GABAPENTIN 100 MG CAP PO SCH ×2 (09:52→21:24)
[2018-04-04] MEDS: ISOSORBIDE MONONITRATE ER 30 MG TAB.ER.24H PO SCH (09:52)
[2018-04-04] MEDS: PANTOPRAZOLE 40 MG TABLET PO SCH (09:52)
[2018-04-04] MEDS: FLUoxetine HCL 20 MG CAP PO SCH (10:54)
[2018-04-04] MEDS ORDERED: BISACODYL 10 MG SUPP RECTAL STA (11:00)
[2018-04-04] MEDS: DOCUSATE 100 MG CAP PO SCH ×2 (13:56→21:24)
[2018-04-04] MEDS: RIVAROXABAN 15 MG TAB PO SCH (16:39)
--- NOTE | 2018-04-04 18:38 | PN ---
PROGRESS NOTE DATE OF SERVICE: 04/04/2018 This 73-year-old gentleman who was admitted with acute bilateral leg cellulitis also had possible sepsis. Patient being closely monitored. No chest pain. No palpitations. No fever. Gram-negative bacilli grown from the culture. The final ID is pending at this time. PHYSICAL EXAM: Alert and oriented x3. Pulse 62. Blood pressure 180/77, respiration 18, temperature 97.2, pulse ox 97% on room air. HEENT: Conjunctivae normal. NECK: No jugular venous distention. CARDIOVASCULAR: S1, S2 muffled. RESPIRATORY: Breath sounds diminished in the bases. Bilateral scattered rhonchi and crackles. ABDOMEN: Soft, nontender. No mass palpable. LEGS: Bilateral leg cellulitis present, right more than the left. NERVOUS SYSTEM: Higher functions as mentioned earlier. Moves all four limbs. No focal deficits. Lymphatics: No lymph nodes palpable in the neck, axillae or groin. SKIN: No ulcer, rash or bleeding. LABS: At this time shows WBC 12.1, hemoglobin is 9 and creatinine is 2.20. ASSESSMENT: 1. Acute bilateral leg cellulitis, right more than the left with possible sepsis present on admission. 2. Acute urinary tract infection, present on admission, not related to King catheter. 3. Chronic renal failure, stage III. 4. History of atrial fibrillation, proximal with anticoagulation. 5. History of recent cellulitis with sepsis. 6. History of congestive heart failure with chronic diastolic dysfunction. 7. History of hyperlipidemia. 8. Hypertension. 9. History of myocardial infarction. 10.History of degenerative joint disease. 11.History of exposure to Agent [place]. 12.History of gout. 13.History of coronary artery disease, stent. 14.History of depression. RECOMMENDATIONS AND DISCUSSION: I recommend to continue current medications. Continue to monitor. Symptomatic treatment. Otherwise at this time I recommend continue the antibiotics. Await final ID of the organisms. Otherwise, prognosis guarded because of multiple complex medical issues. Further recommendations to follow. Closely follow with Infectious Disease, local treatment. MMODL / IJN: [id number] /
[2018-04-04] MEDS: ASPIRIN 81 MG PO SCH (21:24)
[2018-04-04] MEDS: TEMAZEPAM 15 MG CAP PO SCH (21:24)
--- NOTE | 2018-04-05 00:11 | PN ---
PROGRESS NOTE DATE OF SERVICE: 04/04/2018. REASON FOR FOLLOWUP: 1. Right lower extremity venous stasis ulcer and cellulitis. 2. UTI with bacteremia. INTERVAL HISTORY: The patient is currently afebrile, has been breathing comfortably. The patient denies having any chest pain or shortness of breath or cough. No abdominal pain or pain in the right leg area. PHYSICAL EXAMINATION: Blood pressure 177/81 with a pulse of 52, temperature 97.6, he is 97% on room air. GENERAL DESCRIPTION: An elderly male up in the chair in no distress. RESPIRATORY SYSTEM: Unlabored breathing. Clear to auscultation anteriorly. HEART: S1, S2. Regular rate and rhythm. ABDOMEN: Soft, no tenderness. EXTREMITIES: Right leg with some swelling. Redness has decreased. No drainage. LABS: Hemoglobin is mildly low at 12.1, BUN of 43, creatinine is 2.20. Leg wound with presumptive Staph aureus. Urine with an E coli. Blood culture with gram-negative bacilli. DIAGNOSTIC IMPRESSION AND PLAN: 1. Patient with gram-negative bacteremia, source is likely urinary. Waiting for sensitivity of blood cultures. Keep the patient on Zosyn. Obtain ultrasound of the kidney and bladder area in view of the elevated creatinine to rule out any obstructive uropathy. 2. The patient with right lower extremity venous stasis ulcer. Local culture showing a Staph aureus, more likely MSSA as the patient responded to the antibiotic therapy without any vancomycin. Continue supportive care. MMODL / IJN: [id number] /
[2018-04-05] MEDS: traZODone HCL 100 MG TAB PO SCH ×2 (00:46→23:55)
[2018-04-05] MEDS: PIPERACILLIN-TAZOBACTAM 3.375 GM in SODIUM CHLORIDE 0.9% 100 ML IVPB SCH ×4 (00:46→23:56)
[2018-04-05] MEDS: DOXAZOSIN 4 MG TAB PO SCH ×2 (00:47→23:56)
[2018-04-05] MEDS: HYDROcodone/APAP 5-325MG 1 EACH TAB PO PRN ×2 (00:47→22:44)
[2018-04-05] MEDS: PANTOPRAZOLE 40 MG TABLET PO SCH (09:51)
[2018-04-05] MEDS: GABAPENTIN 100 MG CAP PO SCH ×2 (09:51→21:19)
[2018-04-05] MEDS: ISOSORBIDE MONONITRATE ER 30 MG TAB.ER.24H PO SCH (09:51)
[2018-04-05] MEDS: DOCUSATE 100 MG CAP PO SCH ×2 (09:51→19:48)
[2018-04-05] MEDS: LABETALOL 200 MG TAB PO SCH ×2 (09:51→21:16)
[2018-04-05] MEDS: FLUoxetine HCL 20 MG CAP PO SCH (09:51)
[2018-04-05] MEDS: RANOLAZINE 500 MG TAB.ER.12H PO SCH ×2 (09:51→19:49)
--- NOTE | 2018-04-05 10:09 | US ---
EXAMINATION TYPE: US kidneys/renal and bladder DATE OF EXAM: 04/05/2018 COMPARISON: US 2018 CLINICAL HISTORY: recurrent UTI , Elevated Cr. Recurrent UTI, elevated creatinine, exam done portable . EXAM MEASUREMENTS: Right Kidney: 11.4 x 5.6 x 5.7 cm Left Kidney: 11.0 x 5.7 x 5.2 cm Difficult and limited study due to portable exam done with patient sitting up in chair. Right Kidney: no hydronephrosis or masses seen Left Kidney: 2.1 x 1.6 x 2.2cm hypoechoic cystic area seen mid/superior pole Bladder: unable to evaluate due to limitations stated above IMPRESSION: 1. Suspected cyst within the superior pole left kidney. Classified as a simple cyst based on current findings, monitoring is recommended.
[2018-04-05 10:52] LABS: Potassium 3.8 mmol/L (3.5-5.1)
[2018-04-05] MEDS: HYDROPHILIC CREAM 180 GM TUBE TOPICAL SCH ×2 (12:06→21:22)
[2018-04-05] MEDS: RIVAROXABAN 15 MG TAB PO SCH (16:16)
[2018-04-05] MEDS: LORazepam 2 MG/ML INJ IV PRN ×2 (16:16→21:20)
[2018-04-05] MEDS ORDERED: hydrALAZINE HCL 20 MG/ML 1 ML VIAL IVP PRN (17:50)
--- NOTE | 2018-04-05 19:33 | DS ---
DISCHARGE SUMMARY FINAL DIAGNOSES: 1. Acute bilateral leg cellulitis, right more than the left with possible sepsis present on admission. 2. MSSA and gram negative bacilli grown from the culture. 3. Acute urinary tract infection present on admission, not related to King catheter. 4. Acute renal failure, stage III. 5. History of atrial fibrillation paroxysmal with anticoagulation. 6. History of recent cellulitis, sepsis. 7. History of congestive heart failure with chronic diastolic dysfunction. 8. History of hyperlipidemia. 9. Hypertension. 10.History of myocardial infarction. 11.History of degenerative joint disease. 12.History of exposure to Agent [place]. 13.History of gout. 14.History of CAD stent. 15.History of depression. DISCHARGE DISPOSITION: The patient being discharged in stable condition with guarded prognosis. HISTORY OF PRESENT ILLNESS: This 73-year-old gentleman with past medical history of multiple medical problems was admitted with acute bilateral leg cellulitis with sepsis. Patient treated with antibiotics. Patient improved significantly. Seen by Infectious Disease, Dr. Alcantara. On exam, vitals are stable. Cardio system: S1, S2. Abdomen is soft. Nervous system: No focal deficits. Legs: Cellulitis present. DISCHARGE ADVICE AND MEDICATIONS: 1. Diet is cardiac diet. 2. Activity limited until followup. 3. Follow up with Dr. Braun in 2-3 days. 4. Follow up with Dr. Alcantara as recommended. MEDICATIONS ARE: 1. Zyloprim 100 mg daily. 2. Aspirin 81 mg. 3. Bumex 4 mg q.h.s. 4. Prozac 20 mg p.o. daily. 5. Neurontin 100 mg p.o. b.i.d. 6. Imdur 30 mg p.o. daily. 7. Trandate 60 mg p.o. b.i.d. 8. Ativan 1 mg p.o. t.i.d. 9. Oxycodone 10 mg p.o. t.i.d. 10.Ranexa 1000 mg p.o. b.i.d. 11.Xarelto 15 mg with supper. 12.Requip 0.5 mg t.i.d. 13.Hytrin 8 mg q.h.s. 14.Desyrel 200 mg p.o. q.h.s. 15.Artificial tears. 16.Colace 100 mg p.o. b.i.d. 17.Hydrocephalic 1 application b.i.d. 18.Protonix 40 mg b.i.d. SANDY / LELIA: [id number] /
[2018-04-05] MEDS: ASPIRIN 81 MG PO SCH (19:48)
[2018-04-05] MEDS: PANTOPRAZOLE 40 MG/10 ML VIAL IVP SCH (19:48)
[2018-04-05] MEDS: BUMETANIDE 1 MG TAB PO SCH (19:49)
[2018-04-05] MEDS: hydrALAZINE HCL 50 MG TAB PO SCH (21:16)
[2018-04-05] MEDS: TEMAZEPAM 15 MG CAP PO SCH (21:19)
[2018-04-06] MEDS: hydrALAZINE HCL 50 MG TAB PO SCH (06:38)
[2018-04-06 08:02] VITALS: PULSE 63
[2018-04-06] MEDS: DOCUSATE 100 MG CAP PO SCH ×2 (08:34→08:38)
[2018-04-06] MEDS: LABETALOL 200 MG TAB PO SCH (08:34)
[2018-04-06] MEDS: FLUoxetine HCL 20 MG CAP PO SCH (08:34)
[2018-04-06] MEDS: RANOLAZINE 500 MG TAB.ER.12H PO SCH (08:34)
[2018-04-06] MEDS: HYDROcodone/APAP 5-325MG 1 EACH TAB PO PRN (08:34)
[2018-04-06] MEDS: ISOSORBIDE MONONITRATE ER 30 MG TAB.ER.24H PO SCH (08:34)
[2018-04-06] MEDS: GABAPENTIN 100 MG CAP PO SCH (08:34)
[2018-04-06] MEDS: PIPERACILLIN-TAZOBACTAM 3.375 GM in SODIUM CHLORIDE 0.9% 100 ML IVPB SCH (08:34)
[2018-04-06] MEDS: HYDROPHILIC CREAM 180 GM TUBE TOPICAL SCH (08:35)
[2018-04-06] MEDS: PANTOPRAZOLE 40 MG/10 ML VIAL IVP SCH (08:35)
--- NOTE | 2018-04-06 08:45 | PN ---
PROGRESS NOTE DATE OF SERVICE: 04/05/2018. REASON FOR FOLLOWUP: 1. Right lower extremity venostasis ulcer with cellulitis. Culture positive for MSSA. 2. E coli urinary tract infection. 3. Positive blood culture with gram-negative. INTERVAL HISTORY: The patient is currently afebrile. He has been breathing comfortably. Denies having any chest pain or any cough. No abdominal pain or any diarrhea. PHYSICAL EXAMINATION: Blood pressure 174/72 with a pulse of 67. Temperature is 97.3. He is 97% on room air. General description is an elderly male up in the bed in no distress. RESPIRATORY SYSTEM: Unlabored breathing. Clear to auscultation anteriorly. HEART: S1, S2. Regular rate and rhythm. ABDOMEN: Soft, no tenderness. Right leg ulcer has improved. Still has some drainage on the left leg. LAB: BUN of 35, creatinine is 2.12. Leg culture with Staph aureus and gram-negative bacilli. Urine with E. coli. Blood culture with . IMPRESSION/PLAN: 1. Patient with bilateral lower extremity venostasis ulcer . 2. E Coli with urinary tract infection with positive blood culture with which did not grow from the urine or the legs. Question of contaminate. Blood culture repeated. The patient did have ultrasound of the kidney and bladder area that did not show any obstruction or complicated cyst. Blood culture has been repeated. Keep the patient on Zosyn. Hopefully finish therapy with oral antibiotic on discharge. Local wound care with Aquacel Silver dressing. Continue supportive care. MMODL / IJN: [id number] /
[2018-04-06 10:59] LABS: Potassium 3.6 mmol/L (3.5-5.1)
--- NOTE | 2018-04-06 14:43 | PN ---
PROGRESS NOTE DATE OF SERVICE: 04/06/2018. REASON FOR FOLLOWUP: 1. Bilateral lower extremity weakness venous stasis ulcer with cellulitis. 2. Urinary tract infection and bacteremia. INTERVAL HISTORY: The patient is currently afebrile. He is feeling better. Breathing comfortably. Denies having any chest pain or any cough. No abdominal pain or pain to the right leg area. The patient does have a cat at home whole who occasionally jumps on him and scratches him. PHYSICAL EXAMINATION: Blood pressure 124/53 with a pulse of 83. Temperature 97.5. He is 98% on room air. General description is an elderly male up in the chair in no distress. Respiratory system: Unlabored breathing. Clear to auscultation anteriorly. Heart S1, S2. Regular rate and rhythm. Abdomen soft, no tenderness. Bilateral legs are currently dressed up. No obvious drainage on the dressing. LABS: Creatinine 1.93, current more than 30. DIAGNOSTIC IMPRESSION/PLAN: Patient with right lower extremity venous stasis ulcer culture positive for MSSA. The patient did have an E coli UTI and also in the blood. Repeat blood cultures obtained yesterday are negative so far. The patient at this time wants to go home. He will be switched over to Augmentin 875 b.i.d. for 10 days. Local wound care with Aquacel Silver packing of the wound followed by Dylan wrap and [facility]. All questions were answered. MMODL / IJN: [id number] /
[2018-04-06 15:26] VITALS: BP 140/65; RESP 16; TEMP 96.8
[2018-04-06] MEDS ORDERED: PANTOPRAZOLE 40 MG TABLET PO SCH (17:30)
--- NOTE | 2018-04-06 17:55 | PN ---
PROGRESS NOTE DATE OF SERVICE: 04/06/2018 This 73-year-old gentleman admitted with acute bilateral leg cellulitis also had possible MRSA grown from the culture. No chest pain. No palpitations. No fever. EXAM: Alert and oriented times three. Pulse 63, blood pressure 174/70, respiration 18, temperature is 97.3, pulse ox 97% on room air. HEENT: Conjunctivae normal. NECK: No jugular venous distention. CARDIOVASCULAR: S1, S2. RESPIRATORY: Breath sounds diminished in the bases. A few rhonchi. No crackles. Abdomen is soft, nontender. Legs: Bilateral leg wounds present. CENTRAL NERVOUS SYSTEM: No focal deficits. LAB STUDIES: WBC 12.8, hemoglobin is 9, creatinine is 2.12. ASSESSMENT: 1. Acute bilateral leg cellulitis, right more than the left with possible sepsis present on admission. 2. MSSA and as well as pasteurella multocida grown from the culture. 3. Acute urinary tract infection present on admission, not related to King catheter. 4. Acute renal failure, stage III. 5. History of atrial fibrillation paroxysmal with anticoagulation. 6. History of recent cellulitis, sepsis. 7. History of congestive heart failure with chronic diastolic dysfunction. 8. History of hyperlipidemia. 9. Hypertension. 10.History of myocardial infarction. 11.History of degenerative joint disease. 12.History exposure to Agent [place]. 13.History of gout. 14.History of coronary artery disease/stent. 15.History of depression. RECOMMENDATIONS AND DISCUSSION: Recommend to continue current medications, management and symptomatic treatment. Current antibiotics. Closely follow with Infectious Disease. Guarded prognosis because of multiple complex medical issues. Further recommendations to follow. 1. Dyspnea off. MMODL / IJN: [id number] /
--- NOTE | 2018-04-07 08:17 | DS ---
DISCHARGE SUMMARY HISTORY OF PRESENT ILLNESS: This 73-year-old gentleman who was admitted with significant cellulitis had emesis and as well as Pasteurella multocida grown from the culture. The patient was given antibiotics. Patient improved significantly. Dr. Alcantara is recommending outpatient antibiotics. On exam, vital signs are stable. Cardio system: S1, S2. Abdomen soft. Central nervous system: No focal deficits. Legs: Bilateral leg cellulitis, right more than the left much improved. Please refer to the previous dictation for a list history of diagnoses and list of home medications. This patient is stable but overall prognosis guarded. MMODL / IJN: [id number] /
== END 2018-04-06 15:55 | disposition home health service (06) | DRG 872 ==
LOC: EC 14:52 → 4MS4W 17:34
PROVIDERS: ADMIT Internal Medicine; ATTEND Internal Medicine
DX: A41.9 Sepsis, unspecified organism (principal); I13.0 Hypertensive heart and chronic kidney disease with heart failure and stage 1 through stage 4 chronic kidney disease, or unspecified chronic kidney disease; I50.32 Chronic diastolic (congestive) heart failure; L03.115 Cellulitis of right lower limb; L03.116 Cellulitis of left lower limb; N17.9 Acute kidney failure, unspecified; N39.0 Urinary tract infection, site not specified; I48.0 Paroxysmal atrial fibrillation; N18.3 Chronic kidney disease, stage 3 (moderate); B95.61 Methicillin susceptible Staphylococcus aureus infection as the cause of diseases classified elsewhere; B96.20 Unspecified Escherichia coli [E. coli] as the cause of diseases classified elsewhere; E78.5 Hyperlipidemia, unspecified; F41.9 Anxiety disorder, unspecified; G25.81 Restless legs syndrome; I25.10 Atherosclerotic heart disease of native coronary artery without angina pectoris; I25.2 Old myocardial infarction; F32.9 Major depressive disorder, single episode, unspecified; M10.9 Gout, unspecified; M19.90 Unspecified osteoarthritis, unspecified site; F40.240 Claustrophobia; T36.8X5A Adverse effect of other systemic antibiotics, initial encounter; I87.2 Venous insufficiency (chronic) (peripheral); Z79.01 Long term (current) use of anticoagulants; Z79.82 Long term (current) use of aspirin; Z79.899 Other long term (current) drug therapy; Z79.891 Long term (current) use of opiate analgesic; Z88.8 Allergy status to other drugs, medicaments and biological substances; Z95.5 Presence of coronary angioplasty implant and graft; Z95.1 Presence of aortocoronary bypass graft; Z80.3 Family history of malignant neoplasm of breast; Z82.49 Family history of ischemic heart disease and other diseases of the circulatory system
CPT/HCPCS: 36415; 76770; 80048; 80053; 81001; 83605; 84550; 85025; 87040; 87070; 87077; 87086; 87186; 87205; 93005; 96365; 99284

== ENCOUNTER 2018-04-19 22:24 | Inpatient (IN) | payer OTHER, MEDICARE ==
--- NOTE | 2018-04-19 22:32 | ED ---
Chest Pain HPI - General Chief Complaint: Chest Pain Stated Complaint: Chest Pain Time Seen by Provider: 04/19/18 22:31 Source: patient, RN notes reviewed, old records reviewed Mode of arrival: ambulatory Limitations: no limitations - History of Present Illness Initial Comments: This is a 73 year-old male the ER for evaluation. Presents today for evaluation of chest pain weakness abdominal pain. Burning chest pain. Patient does have significant history of heart disease, no recent cardiac evaluations that he can remember. No travel history no sick contacts no fever cough or congestion MD Complaint: chest pain -: hour(s) Onset: during rest, other (Patient also complaining of significant weakness) Pain Location: substernal, epigastric Pain Radiation: none Severity: moderate Severity scale (1-10): 3 Quality: other (burning) Consistency: constant Improves With: nothing Worsens With: nothing Anginal Symptoms: nausea Other Symptoms: fever, acid taste in mouth, leg swelling, palpitations Treatments Prior to Arrival: none - Related Data Home Medications Medication Instructions Recorded Confirmed Aspirin 81 mg PO DAILY 07/03/13 04/20/18 FLUoxetine HCL [PROzac] 20 mg PO DAILY@1000 07/03/13 04/20/18 Labetalol HCl [Trandate] 600 mg PO BID@1000,2200 07/03/13 04/20/18 Terazosin [Hytrin] 8 mg PO HS@0000 12/25/13 04/20/18 Isosorbide Mononitrate ER [Imdur] 60 mg PO DAILY@1000 03/11/15 04/20/18 Rivaroxaban [Xarelto] 15 mg PO HS 04/20/16 04/20/18 rOPINIRole HCL [Requip] 0.5 mg PO TID@0000,1000,1700 12/25/16 04/20/18 LORazepam [Ativan] 1 mg PO TID@0000,1000,1700 04/27/17 04/20/18 Ranolazine [Ranexa] 1,000 mg PO BID@0800,2200 04/27/17 04/20/18 oxyCODONE HCL [Roxicodone] 5 mg PO BID PRN 04/27/17 04/20/18 traZODone HCL [Desyrel] 100 mg PO HS@0000 04/27/17 04/20/18 Bumetanide 4 mg PO DAILY 02/12/19 03/02/19 Atorvastatin [Lipitor] 20 mg PO DAILY 04/20/18 04/20/18 Losartan Potassium 100 mg PO DAILY 04/20/18 04/20/18 Nitroglycerin Sl Tabs [Nitrostat] 0.4 mg SUBLINGUAL Q5M PRN 04/20/18 04/20/18 Omeprazole 20 mg PO DAILY 04/20/18 04/20/18 QUEtiapine [SEROquel] 25 mg PO HS 04/20/18 04/20/18 Allergies Allergy/AdvReac Type Severity Reaction Status Date / Time amlodipine AdvReac CONSTIPATIO Verified 04/20/18 07:53 N atenolol AdvReac MALE ED Verified 04/20/18 07:53 hydrochlorothiazide AdvReac RENAL Verified 04/20/18 07:53 IMPAIRMENT pravastatin AdvReac Rash/Hives Verified 04/20/18 07:53 Review of Systems ROS Statement: Those systems with pertinent positive or pertinent negative responses have been documented in the HPI. ROS Other: All systems not noted in ROS Statement are negative. EKG Findings - EKG Comments: EKG Findings:: EKG shows sinus rhythm rate of 72, TX 24, QRS 80, QTC 512 Past Medical History Past Medical History: Atrial Fibrillation, Coronary Artery Disease (CAD), Chest Pain / Angina, Heart Failure, Hyperlipidemia, Hypertension, Myocardial Infarction (CO), Osteoarthritis (OA), Renal Disease Additional Past Medical History / Comment(s): ? 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 pt stated has slept in recliner chair for past 10 years, uti ecoli 2013. gout in past, djd, lumbar disc disease. restless leg , leg cellulitis/swelling, falls/ Last Myocardial Infarction Date:: 2009 History of Any Multi-Drug Resistant Organisms: None Reported Past Surgical History: Heart Catheterization With Stent, Tonsillectomy Additional Past Surgical History / Comment(s): [id number] stents, rt hand sx to repair severed lig/tendons(age 20) has limited use of index finger Past Anesthesia/Blood Transfusion Reactions: No Reported Reaction Additional Past Anesthesia/Blood Transfusion Reaction / Comment(s): clausterphobia Date of Last Stent Placement:: 2009 Past Psychological History: Depression Smoking Status: Never smoker - Past Family History Mother Family Medical History: Cancer Additional Family Medical History / Comment(s): breast cancer, heart problems was on warfarin(pt stated she bled out) Father Family Medical History: Coronary Artery Disease (CAD), Myocardial Infarction (CO ) Additional Family Medical History / Comment(s): Father had his 1st CO in his 50s and then from his 2nd CO at the age of 74yrs. General Exam - General Exam Comments Initial Comments: Significant bilateral lower extremity edema Limitations: no limitations General appearance: alert, in no apparent distress Head exam: Present: atraumatic, normocephalic, normal inspection Eye exam: Present: normal appearance, PERRL, EOMI. Absent: scleral icterus, conjunctival injection, periorbital swelling ENT exam: Present: normal exam, mucous membranes moist Neck exam: Present: normal inspection. Absent: tenderness, meningismus, lymphadenopathy Respiratory exam: Present: respiratory distress, rales, accessory muscle use, decreased breath sounds, prolonged expiratory. Absent: wheezes, rhonchi, stridor Cardiovascular Exam: Present: regular rate, normal rhythm, normal heart sounds. Absent: systolic murmur, diastolic murmur, rubs, gallop, clicks GI/Abdominal exam: Present: soft, normal bowel sounds. Absent: distended, tenderness, guarding, rebound, rigid Extremities exam: Present: normal inspection, full ROM, normal capillary refill. Absent: tenderness, pedal edema, joint swelling, calf tenderness Back exam: Present: normal inspection Neurological exam: Present: alert, oriented X3, CN II-XII intact Psychiatric exam: Present: normal affect, normal mood Skin exam: Present: warm, dry, intact, normal color. Absent: rash Course Vital Signs 04/19/18 04/19/18 04/19/18 22:26 22:45 23:00 Temperature 98.4 F Pulse Rate 80 73 Respiratory 20 15 Rate Blood Pressure 163/68 161/80 O2 Sat by Pulse 92 L 93 L 94 L Oximetry 04/19/18 04/20/18 04/20/18 23:30 00:00 00:15 Temperature Pulse Rate 67 67 Respiratory 16 18 Rate Blood Pressure 148/62 147/123 157/62 O2 Sat by Pulse 93 L 95 Oximetry 04/20/18 00:30 Temperature Pulse Rate 66 Respiratory 18 Rate Blood Pressure 157/62 O2 Sat by Pulse 95 Oximetry - Reevaluation(s) Reevaluation #1: 04/19/18 22:51 Record and prior hospitalization or reviewed Chest Pain MDM - MDM 73 male the ER for evaluation. Patient will be admitted for CHF. Recent hospital admission for multiple sources of infection. Patient was shortness of breath and hypoxia. Doing better on oxygen here in the emergency room. Critical Care Time Critical Care Time: Yes Total Critical Care Time: 31 Disposition Clinical Impression: Chronic renal insufficiency, Acute renal failure (ARF), CHF (congestive heart failure), Hypoxia, Weakness, Chest pain Disposition: ADMITTED IP TO THIS HOSP Condition: Fair Is patient prescribed a controlled substance at d/c from ED?: No
[2018-04-19 23:14] LABS: Basophils % (A) 0 %; Eosinophils # (A) 0.3 k/uL (0-0.7); Eosinophils % (A) 2 %; HCT 29.2 % (39.0-53.0); HGB 9.5 gm/dL (13.0-17.5); Lymphocytes # (A) 0.8 k/uL (1.0-4.8); Lymphocytes % (A) 6 %; MCH 31.7 pg (25.0-35.0); MCHC 32.3 g/dL (31.0-37.0); MCV 98.2 fL (80.0-100.0); Mean Platelet Volume 6.7; Monocytes # (A) 0.9 k/uL (0-1.0); Monocytes % (A) 7 %; Neutrophils # (A) 10.5 k/uL (1.3-7.7); Neutrophils % (A) 83 %; Platelet Count 306 k/uL (150-450); RBC 2.98 m/uL (4.30-5.90); RDW 14.8 % (11.5-15.5); WBC 12.6 k/uL (3.8-10.6)
[2018-04-19 23:23] LABS: Albumin 3.4 g/dL (3.5-5.0); Calcium 8.6 mg/dL (8.4-10.2); Potassium 3.8 mmol/L (3.5-5.1); Total Protein 6.6 g/dL (6.3-8.2)
[2018-04-19 23:24] LABS: INR 1.7 (<1.2); Partial Thromboplastin Time 44.1 sec (22.0-30.0); Prothrombin Time 16.6 sec (9.0-12.0)
--- NOTE | 2018-04-19 23:40 | XR ---
EXAM: XR Chest, 2 Views CLINICAL HISTORY: Chest Pain TECHNIQUE: Frontal and lateral views of the chest. COMPARISON: 04/27/2017 FINDINGS: Lungs: Moderate amount of airspace opacities throughout both lungs. Pleural space: Unremarkable. No pneumothorax. Heart: cardiomegaly. Bones/joints: Moderate degenerative changes. Vasculature: Aorta is minimally calcified. IMPRESSION: Moderate pulmonary edema
[2018-04-20] MEDS ORDERED: FUROSEMIDE 10 MG/ML 4 ML VIAL IV SCH (01:15)
[2018-04-20] MEDS ORDERED: ENOXAPARIN 40 MG/0.4 ML SYRINGE SQ SCH (09:00)
[2018-04-20] MEDS ORDERED: NITROGLYCERIN SL TABS 0.4 MG TAB SUBLINGUAL PRN (10:15)
--- NOTE | 2018-04-20 10:15 | P.CRDCN ---
History of Present Illness Consult date: 04/20/18 History of present illness: This is a 73-year-old gentleman with history of coronary artery disease with history of prior stent placement done in [facility] in [place]. Patient also has history of paroxysmal atrial fibrillation, hyperlipidemia, hypertension , chronic kidney disease and also congestive heart failure. Patient had a recent admission to this hospital because of cellulitis. Patient was brought to the hospital yesterday because patient was complaining of some burning pain in the epigastric area. Patient took some Maalox at home with some relief. He was also given some Maalox and pain pills with relief of pain. Since last night patient has been stable without any discomfort. His first troponin is normal but second troponin went up to 0.54. His creatinine is however is in the range of 1.87. At the time of my examination patient is not having any discomfort in his EKG showed sinus rhythm with diffuse nonspecific ST-T abnormalities. Prolonged QT interval. No acute ST elevation noted. Patient had similar troponin elevation in 2017. Echocardiogram previously showed fairly preserved LV function. His proBNP is elevated to more than 3000. I'm going to continue monitoring his troponin values and get another echocardiogram. Further recommendations depend upon the clinical course. If troponin levels show a trend consistent with acute RI, patient may need further intervention. Indwelling continue with heparin, nitrates, beta blockers and diuretics as tolerated Review of Systems As per the chart Past Medical History Past Medical History: Atrial Fibrillation, Coronary Artery Disease (CAD), Chest Pain / Angina, Heart Failure, Hyperlipidemia, Hypertension, Myocardial Infarction (RI), Osteoarthritis (OA), Renal Disease Additional Past Medical History / Comment(s): ? 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 pt stated has slept in recliner chair for past 10 years, uti ecoli 2013. gout in past, djd, lumbar disc disease. restless leg , leg cellulitis/swelling, falls/ Last Myocardial Infarction Date:: 2009 History of Any Multi-Drug Resistant Organisms: Acinetobacter (MDRO), Other MDRO Date of last positivie culture/infection: 04/02/2018 MDRO Source:: leg wound Past Surgical History: Heart Catheterization With Stent, Tonsillectomy Additional Past Surgical History / Comment(s): [id number] stents, rt hand sx to repair severed lig/tendons(age 20) has limited use of index finger Past Anesthesia/Blood Transfusion Reactions: No Reported Reaction Additional Past Anesthesia/Blood Transfusion Reaction / Comment(s): clausterphobia Date of Last Stent Placement:: 2009 Past Psychological History: Depression Additional Psychological History / Comment(s): PT RESIDES WITH HIS SPOUSE. PT SERVED IN THE [employer] WHEN YOUNGER ([employer]) AND AFTERWARDS WORKED FOR [employer]. HE USES A WHEELCHAIR PRN. HE DRIVES. HE SLEEPS IN A RECLINER. Smoking Status: Never smoker Past Alcohol Use History: None Reported Additional Past Alcohol Use History / Comment(s): Patient is a lifelong nonsmoker. He denies any marijuana or illicit drug use. He denies any alcohol use. He lives at home with his in their cats in the home. 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 He has been on disability and served in [employer] for 2 years in the [employer] for 7 years. Past Drug Use History: None Reported - Past Family History Mother Family Medical History: Cancer Additional Family Medical History / Comment(s): breast cancer, heart problems was on warfarin(pt stated she bled out) Father Family Medical History: Coronary Artery Disease (CAD), Myocardial Infarction (RI ) Additional Family Medical History / Comment(s): Father had his 1st RI in his 50s and then from his 2nd RI at the age of 74yrs. Medications and Allergies Home Medications Medication Instructions Recorded Confirmed Type Aspirin 81 mg PO DAILY 07/03/13 04/20/18 History FLUoxetine HCL [PROzac] 20 mg PO DAILY@1000 07/03/13 04/20/18 History Labetalol HCl [Trandate] 600 mg PO BID@1000,2200 07/03/13 04/20/18 History Terazosin [Hytrin] 8 mg PO HS@0000 12/25/13 04/20/18 History Isosorbide Mononitrate ER [Imdur] 60 mg PO DAILY@1000 03/11/15 04/20/18 History Rivaroxaban [Xarelto] 15 mg PO HS 04/20/16 04/20/18 History rOPINIRole HCL [Requip] 0.5 mg PO TID@0000,1000,1700 12/25/16 04/20/18 History LORazepam [Ativan] 1 mg PO TID@0000,1000,1700 04/27/17 04/20/18 History Ranolazine [Ranexa] 1,000 mg PO BID@0800,2200 04/27/17 04/20/18 History oxyCODONE HCL [Roxicodone] 5 mg PO BID PRN 04/27/17 04/20/18 History traZODone HCL [Desyrel] 100 mg PO HS@0000 04/27/17 04/20/18 History Bumetanide 4 mg PO DAILY 04/02/18 04/20/18 History Atorvastatin [Lipitor] 20 mg PO DAILY 04/20/18 04/20/18 History Losartan Potassium 100 mg PO DAILY 04/20/18 04/20/18 History Nitroglycerin Sl Tabs [Nitrostat] 0.4 mg SUBLINGUAL Q5M PRN 04/20/18 04/20/18 History Omeprazole 20 mg PO DAILY 04/20/18 04/20/18 History QUEtiapine [SEROquel] 25 mg PO HS 04/20/18 04/20/18 History Allergies Allergy/AdvReac Type Severity Reaction Status Date / Time amlodipine AdvReac CONSTIPATIO Verified 04/20/18 07:53 N atenolol AdvReac MALE ED Verified 04/20/18 07:53 hydrochlorothiazide AdvReac RENAL Verified 04/20/18 07:53 IMPAIRMENT pravastatin AdvReac Rash/Hives Verified 04/20/18 07:53 Physical Exam Vitals: Vital Signs Temp Pulse Pulse Resp BP BP Pulse Ox 04/20/18 08:00 98.4 F 84 18 144/68 91 L 04/20/18 04:36 76 16 144/85 94 L 04/20/18 04:00 16 04/20/18 03:02 98.5 F 93 16 186/86 89 L 04/20/18 00:30 66 18 157/62 95 04/20/18 00:15 67 18 157/62 95 04/20/18 00:00 67 16 147/123 93 L 04/19/18 23:30 148/62 04/19/18 23:00 73 15 161/80 94 L 04/19/18 22:45 93 L 04/19/18 22:26 98.4 F 80 20 163/68 92 L Intake and Output 04/19/18 04/20/18 04/20/18 22:59 06:59 14:59 Output Total 600 Balance -600 Output: Urine 600 Other: Voiding Method Urinal Urinal # Voids 1 Weight 122.47 kg 123.6 kg GENERAL EXAM: Patient is alert and oriented and doesn't appear to be in any acute distress HEENT: Normocephalic. Normal reaction of pupils, equal size, normal range of extraocular motion. NECK: No masses, no nuchal rigidity. CHEST: No chest wall deformity. LUNGS: Equal air entry with no crackles or wheeze. HEART: S1 and S2 normal with no audible mumurs or gallops. Regular rhythm, femorals equal on both sides.. ABDOMEN: No hepatosplenomegaly, normal bowel sounds, no guarding or rigidity. SKIN: No rashes CENTRAL NERVOUS SYSTEM: No focal deficits. EXTREMITIES: Both legs are wrapped Results 04/19/18 22:55 04/19/18 22:55 Cardiac Enzymes 04/19/18 04/19/18 04/20/18 Range/Units 22:55 22:55 06:57 AST 16 L (17-59) U/L Troponin I <0.012 0.544 H* (0.000-0.034) ng/mL Coagulation 04/19/18 Range/Units 22:55 PT 16.6 H (9.0-12.0) sec APTT 44.1 H (22.0-30.0) sec CBC 04/19/18 Range/Units 22:55 WBC 12.6 H (3.8-10.6) k/uL RBC 2.98 L (4.30-5.90) m/uL Hgb 9.5 L (13.0-17.5) gm/dL Hct 29.2 L (39.0-53.0) % Plt Count 306 (150-450) k/uL Comprehensive Metabolic Panel 04/19/18 Range/Units 22:55 Sodium 138 (137-145) mmol/L Potassium 3.8 (3.5-5.1) mmol/L Chloride 94 L (98-107) mmol/L Carbon Dioxide 34 H (22-30) mmol/L BUN 23 H (9-20) mg/dL Creatinine 1.85 H (0.66-1.25) mg/dL Glucose 120 H (74-99) mg/dL Calcium 8.6 (8.4-10.2) mg/dL AST 16 L (17-59) U/L ALT 24 (21-72) U/L Alkaline Phosphatase 88 (38-126) U/L Total Protein 6.6 (6.3-8.2) g/dL Albumin 3.4 L (3.5-5.0) g/dL Current Medications Generic Name Dose Route Start Last Admin Trade Name Freq PRN Reason Stop Dose Admin Enoxaparin Sodium 40 mg 04/20/18 09:00 Lovenox SQ DAILY KARINE Furosemide 40 mg 04/20/18 01:15 04/20/18 01:24 Lasix IV 40 mg Q8H KARINE Administration Intake and Output 04/19/18 04/20/18 04/20/18 22:59 06:59 14:59 Output Total 600 Balance -600 Output: Urine 600 Other: Voiding Method Urinal Urinal # Voids 1 Weight 122.47 kg 123.6 kg 04/19/18 22:55 04/19/18 22:55 EKG Interpretations (text) Sinus rhythm with prolonged QT interval, nonspecific ST-T wave normalities Assessment and Plan (1) Elevated troponin Current Visit: Yes Status: Acute Code(s): R74.8 - ABNORMAL LEVELS OF OTHER SERUM ENZYMES SNOMED Code(s): 813634214 (2) Chest pain Current Visit: Yes Status: Acute Code(s): R07.9 - CHEST PAIN, UNSPECIFIED SNOMED Code(s): 77504042 (3) Chronic renal insufficiency Current Visit: Yes Status: Acute Code(s): N18.9 - CHRONIC KIDNEY DISEASE, UNSPECIFIED SNOMED Code(s): 549666057 (4) Bilateral leg edema Current Visit: No Status: Acute Code(s): R60.0 - LOCALIZED EDEMA SNOMED Code(s): 685204661 (5) Cellulitis Current Visit: No Status: Acute Code(s): L03.90 - CELLULITIS, UNSPECIFIED SNOMED Code(s): 625818645 Plan: Patient had some epigastric discomfort and abnormal troponin values without any acute ST-T abnormalities. We'll follow the trend of the troponins and also get an echocardiogram. Meanwhile, patient should be continued on heparin, nitrates , beta blockers and diuretics as tolerated along with aspirin. Further recommendations depend upon clinical course
[2018-04-20] MEDS ORDERED: FLUoxetine HCL 20 MG CAP PO STA (10:51)
[2018-04-20] MEDS ORDERED: LORazepam 1 MG TAB PO STA (10:52)
[2018-04-20] MEDS ORDERED: ISOSORBIDE MONONITRATE ER 60 MG TAB.ER.24H PO STA (10:52)
[2018-04-20] MEDS ORDERED: LABETALOL 200 MG TAB PO STA (10:52)
[2018-04-20] MEDS ORDERED: LOSARTAN 50 MG TAB PO STA (10:53)
[2018-04-20] MEDS ORDERED: PANTOPRAZOLE 40 MG TABLET PO STA (10:54)
[2018-04-20] MEDS: BUMETANIDE 0.25 MG/ML 10 ML VIAL IV SCH (11:09)
[2018-04-20] MEDS: HEPARIN SOD,PORK IN 0.45% NACL 25,000 UNIT in 0.45% NACL 1 250ML.BAG IV SCH (11:23)
--- NOTE | 2018-04-20 11:44 | P.HPIM ---
History of Present Illness H&P Date: 04/20/18 This is a very pleasant 71-year-old gentleman past medical history significant for CAD history of prior stents comes in with chest discomfort. He described the discomfort as burning in the epigastric area he says that this is how his chest symptoms starts. He was also having shortness of breath along with it but not anymore. He does not does not complain of any racing heart, no cough, no abdominal pain, nausea and vomiting, or diarrhea constipation, no tingling numbness of the extremities, no itch or rash. ER course-patient's vitals were stable in the ER bed lab work showed WAC 12.6 hemoglobin 9.5 platelets 306 sodium 1:30 pressure 3.8 B1 23 creatinine 1.85. Troponin levels were 0.012 and 0.54 respectively. Patient was thus admitted to the hospitalist service for further evaluation and management. Patient was seen by grey stock recorder already and patient is was started on heparin drip, endocardium is been ordered. Review of Systems All systems: negative Past Medical History Past Medical History: Atrial Fibrillation, Coronary Artery Disease (CAD), Chest Pain / Angina, Heart Failure, Hyperlipidemia, Hypertension, Myocardial Infarction (MO), Osteoarthritis (OA), Renal Disease Additional Past Medical History / Comment(s): ? 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 pt stated has slept in recliner chair for past 10 years, uti ecoli 2013. gout in past, djd, lumbar disc disease. restless leg , leg cellulitis/swelling, falls/ Last Myocardial Infarction Date:: 2009 History of Any Multi-Drug Resistant Organisms: Acinetobacter (MDRO), Other MDRO Date of last positivie culture/infection: 04/02/2018 MDRO Source:: leg wound Past Surgical History: Heart Catheterization With Stent, Tonsillectomy Additional Past Surgical History / Comment(s): [id number] stents, rt hand sx to repair severed lig/tendons(age 20) has limited use of index finger Past Anesthesia/Blood Transfusion Reactions: No Reported Reaction Additional Past Anesthesia/Blood Transfusion Reaction / Comment(s): clausterphobia Date of Last Stent Placement:: 2009 Past Psychological History: Depression Additional Psychological History / Comment(s): PT RESIDES WITH HIS SPOUSE. PT SERVED IN THE [employer] ([employer]) WHEN YOUNGER ([employer]) AND AFTERWARDS WORKED FOR [employer]. HE USES A WHEELCHAIR PRN. HE DRIVES. HE SLEEPS IN A RECLINER. Smoking Status: Never smoker Past Alcohol Use History: None Reported Additional Past Alcohol Use History / Comment(s): Patient is a lifelong nonsmoker. He denies any marijuana or illicit drug use. He denies any alcohol use. He lives at home with his in their cats in the home. 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 He has been on disability and served in [place] for 2 years in the [employer] for 7 years. Past Drug Use History: None Reported - Past Family History Mother Family Medical History: Cancer Additional Family Medical History / Comment(s): breast cancer, heart problems was on warfarin(pt stated she bled out) Father Family Medical History: Coronary Artery Disease (CAD), Myocardial Infarction (MO ) Additional Family Medical History / Comment(s): Father had his 1st MO in his 50s and then from his 2nd MO at the age of 74yrs. Medications and Allergies Home Medications Medication Instructions Recorded Confirmed Type Aspirin 81 mg PO DAILY 07/03/13 04/20/18 History FLUoxetine HCL [PROzac] 20 mg PO DAILY@1000 07/03/13 04/20/18 History Labetalol HCl [Trandate] 600 mg PO BID@1000,2200 07/03/13 04/20/18 History Terazosin [Hytrin] 8 mg PO HS@0000 12/25/13 04/20/18 History Isosorbide Mononitrate ER [Imdur] 60 mg PO DAILY@1000 03/11/15 04/20/18 History Rivaroxaban [Xarelto] 15 mg PO HS 04/20/16 04/20/18 History rOPINIRole HCL [Requip] 0.5 mg PO TID@0000,1000,1700 12/25/16 04/20/18 History LORazepam [Ativan] 1 mg PO TID@0000,1000,1700 04/27/17 04/20/18 History Ranolazine [Ranexa] 1,000 mg PO BID@0800,2200 04/27/17 04/20/18 History oxyCODONE HCL [Roxicodone] 5 mg PO BID PRN 04/27/17 04/20/18 History traZODone HCL [Desyrel] 100 mg PO HS@0000 04/27/17 04/20/18 History Bumetanide 4 mg PO DAILY 04/02/18 04/20/18 History Atorvastatin [Lipitor] 20 mg PO DAILY 04/20/18 04/20/18 History Losartan Potassium 100 mg PO DAILY 04/20/18 04/20/18 History Nitroglycerin Sl Tabs [Nitrostat] 0.4 mg SUBLINGUAL Q5M PRN 04/20/18 04/20/18 History Omeprazole 20 mg PO DAILY 04/20/18 04/20/18 History QUEtiapine [SEROquel] 25 mg PO HS 04/20/18 04/20/18 History Allergies Allergy/AdvReac Type Severity Reaction Status Date / Time amlodipine AdvReac CONSTIPATIO Verified 04/20/18 07:53 N atenolol AdvReac MALE ED Verified 04/20/18 07:53 hydrochlorothiazide AdvReac RENAL Verified 04/20/18 07:53 IMPAIRMENT pravastatin AdvReac Rash/Hives Verified 04/20/18 07:53 Physical Exam Vitals: Vital Signs Temp Pulse Pulse Resp BP BP Pulse Ox 04/20/18 08:00 98.4 F 84 18 144/68 91 L 04/20/18 04:36 76 16 144/85 94 L 04/20/18 04:00 16 04/20/18 03:02 98.5 F 93 16 186/86 89 L 04/20/18 00:30 66 18 157/62 95 04/20/18 00:15 67 18 157/62 95 04/20/18 00:00 67 16 147/123 93 L 04/19/18 23:30 148/62 04/19/18 23:00 73 15 161/80 94 L 04/19/18 22:45 93 L 04/19/18 22:26 98.4 F 80 20 163/68 92 L Intake and Output 04/19/18 04/20/18 04/20/18 22:59 06:59 14:59 Output Total 600 Balance -600 Output: Urine 600 Other: Voiding Method Urinal Urinal # Voids 1 Weight 122.47 kg 123.6 kg On exam, alert and oriented x3. HEENT: Conjunctivae normal. eyes normal. NECK: No JVD. No thyroid enlargement. No LNs CARDIOVASCULAR: S1-S2 positive RESPIRATION: Breath sounds diminished in the bases. No rhonchi or crackles. No bronchial breathing. ABDOMEN: Soft, nontender . No guarding. no masses palpable. No ascites, No hepatosplenomegaly.Bowel sounds heard. LEGS: Patient is an of +2 pedal edema bilateral lower extremities all the way up to the knee NERVOUS SYSTEM: Cranial N 2-12 grossly normal. Moves all 4 limbs. No focal deficits. No sensory deficit. No signs of cerebellar dysfucntion. Skin: no ulcer no rash Results CBC & Chem 7: 04/19/18 22:55 04/19/18 22:55 Labs: Abnormal Lab Results - Last 24 Hours (Table) 04/19/18 04/19/18 04/19/18 Range/Units 22:55 22:55 22:55 WBC 12.6 H (3.8-10.6) k/uL RBC 2.98 L (4.30-5.90) m/uL Hgb 9.5 L (13.0-17.5) gm/dL Hct 29.2 L (39.0-53.0) % Neutrophils # 10.5 H (1.3-7.7) k/uL Lymphocytes # 0.8 L (1.0-4.8) k/uL PT 16.6 H (9.0-12.0) sec INR 1.7 H (<1.2) APTT 44.1 H (22.0-30.0) sec Chloride 94 L (98-107) mmol/L Carbon Dioxide 34 H (22-30) mmol/L BUN 23 H (9-20) mg/dL Creatinine 1.85 H (0.66-1.25) mg/dL Glucose 120 H (74-99) mg/dL AST 16 L (17-59) U/L Troponin I (0.000-0.034) ng/mL Albumin 3.4 L (3.5-5.0) g/dL 04/20/18 Range/Units 06:57 WBC (3.8-10.6) k/uL RBC (4.30-5.90) m/uL Hgb (13.0-17.5) gm/dL Hct (39.0-53.0) % Neutrophils # (1.3-7.7) k/uL Lymphocytes # (1.0-4.8) k/uL PT (9.0-12.0) sec INR (<1.2) APTT (22.0-30.0) sec Chloride (98-107) mmol/L Carbon Dioxide (22-30) mmol/L BUN (9-20) mg/dL Creatinine (0.66-1.25) mg/dL Glucose (74-99) mg/dL AST (17-59) U/L Troponin I 0.544 H* (0.000-0.034) ng/mL Albumin (3.5-5.0) g/dL Thrombosis Risk Factor Assmnt - Choose All That Apply Each Factor Represents 1 point: Heart failure (<1month), Obesity (BMI >25) Each Risk Factor Represents 2 Points: Age 61-74 years Thrombosis Risk Factor Assessment Total Risk Factor Score: 4 Thrombosis Risk Factor Assessment Level: Moderate Risk Assessment and Plan Assessment: - Rule out non-STEMI - History of A. fib - History of CAD and stent placement - C KD - CHF exacerbation - Hypertension - Hyperlipidemia Plan - The patient was initially admitted to observation but will make given patient as his troponin levels are high - The patient has been started on heparin drip will continue that - Continue rest of the home medications - Appreciated cardiology recommendations - DVT and GI prophylaxis - We'll order for lab work in the morning - Expected length of stay is more than 2 midnights - Patient is full code Time with Patient: Greater than 30
[2018-04-20] MEDS: RANOLAZINE 500 MG TAB.ER.12H PO SCH ×2 (11:49→22:15)
--- NOTE | 2018-04-20 16:57 | ECHOF ---
Referral Reason:Chest pain and cardiomyopathy MEASUREMENTS -------- HEIGHT: 180.3 cm WEIGHT: 122.9 kg BP: RVIDd: 2.7 cm (< 3.3) IVSd: 1.8 cm (0.6 - 1.1) LVIDd: 4.5 cm (3.9 - 5.3) LVPWd: 1.8 cm (0.6 - 1.1) IVSs: 2.1 cm LVIDs: 2.9 cm LVPWs: 2.1 cm LAESV Index (A-L): 44.40 ml/m Ao Diam: 3.3 cm (2.0 - 3.7) AV Cusp: 2.3 cm (1.5 - 2.6) LA Diam: 3.4 cm (2.7 - 3.8) MV EXCURSION: 21.085 mm (> 18.000) MV EF SLOPE: 154 mm/s (70 - 150) EPSS: 0.7 cm MV E Renny: 1.18 m/s MV DecT: 159 ms MV A Renny: 0.67 m/s MV E/A Ratio: 1.77 AR PHT: 420 ms RAP: 5.00 mmHg RVSP: 15.73 mmHg FINDINGS -------- Sinus rhythm with extra systolic beats. This was a technically difficult study with suboptimal views. The left ventricular size is normal. There is severe concentric left ventricular hypertrophy. Ove rall left ventricular systolic function is normal with, an EF between 55 - 60 %. The right ventricle is normal in size. LA is severely dilated >40 ml/m2 The right atrium is normal in size. Lumason used The aortic valve is trileaflet and appears structurally normal. There is mild aortic regurgitation. The mitral valve leaflets are mildly thickened. There is trace mitral regurgitation. Trace tricuspid regurgitation present. The right ventricular systolic pressure, as measured by Dopp ler, is 15.73mmHg. Pulmonic valve appears structurally normal. The aortic root size is normal. IVC Not well visulized. The pericardium is normal. CONCLUSIONS -------- 1. Sinus rhythm with extra systolic beats. 2. This was a technically difficult study with suboptimal views. 3. The left ventricular size is normal. 4. There is severe concentric left ventricular hypertrophy. 5. Overall left ventricular systolic function is normal with, an EF between 55 - 60 %. 6. The right ventricle is normal in size. 7. LA is severely dilated >40 ml/m2 8. The right atrium is normal in size. 9. Lumason used 10. The aortic valve is trileaflet and appears structurally normal. 11. There is mild aortic regurgitation. 12. The mitral valve leaflets are mildly thickened. 13. There is trace mitral regurgitation. 14. Trace tricuspid regurgitation present. 15. The right ventricular systolic pressure, as measured by Doppler, is 15.73mmHg. 16. Pulmonic valve appears structurally normal. 17. The aortic root size is normal. 18. IVC Not well visulized. 19. The pericardium is normal. BORDEREAU CLERK: Teresa Shannon RDCS
[2018-04-20] MEDS: LORazepam 1 MG TAB PO SCH ×2 (17:16→23:32)
[2018-04-20] MEDS ORDERED: RANOLAZINE 500 MG TAB.ER.12H PO SCH (22:00)
[2018-04-20] MEDS: LABETALOL 200 MG TAB PO SCH (22:12)
[2018-04-20] MEDS: QUEtiapine 25 MG TAB PO SCH (22:15)
[2018-04-20] MEDS: DOXAZOSIN 4 MG TAB PO SCH (23:32)
[2018-04-20] MEDS: traZODone HCL 100 MG TAB PO SCH (23:32)
[2018-04-21] MEDS: PANTOPRAZOLE 40 MG TABLET PO SCH (06:29)
[2018-04-21] MEDS: LABETALOL 200 MG TAB PO SCH (07:57)
[2018-04-21] MEDS: ASPIRIN 81 MG PO SCH (07:57)
[2018-04-21] MEDS: LORazepam 1 MG TAB PO SCH ×3 (07:57→23:12)
[2018-04-21] MEDS: RANOLAZINE 500 MG TAB.ER.12H PO SCH ×2 (07:58→20:26)
[2018-04-21] MEDS: ATORVASTATIN 20 MG TAB PO SCH (07:58)
[2018-04-21] MEDS: FLUoxetine HCL 20 MG CAP PO SCH (07:58)
[2018-04-21] MEDS: ISOSORBIDE MONONITRATE ER 60 MG TAB.ER.24H PO SCH (07:59)
[2018-04-21] MEDS: BUMETANIDE 0.25 MG/ML 10 ML VIAL IV SCH (07:59)
[2018-04-21 08:58] LABS: Calcium 8.4 mg/dL (8.4-10.2); Potassium 3.6 mmol/L (3.5-5.1)
[2018-04-21] MEDS ORDERED: LOSARTAN 50 MG TAB PO SCH (09:00)
[2018-04-21] MEDS ORDERED: BUMETANIDE 1 MG TAB PO SCH (09:00)
--- NOTE | 2018-04-21 09:38 | P.PN ---
Subjective Says that he's doing good today. He has no chest pain No cough no shortness of breath Legs are still swollen but +3 pedal edema all the way up to the knees Objective - Vital Signs Vital signs: Vital Signs Temp 96.1 F L 04/21/18 08:00 Pulse 83 04/21/18 08:00 Resp 18 04/21/18 08:00 BP 96/51 04/21/18 08:00 Pulse Ox 93 L 04/21/18 08:00 Intake & Output 04/20/18 04/21/18 04/21/18 18:59 06:59 18:59 Intake Total 447.541 Output Total 1 Balance -1 447.541 Weight 122.9 kg 122.6 kg Intake: Intake, IV Titration 207.541 Amount Heparin Sod,Pork in 0.45% 207.541 NaCl 25,000 unit In 0.45 % NaCl 1 250ml.bag @ 8.1 UNITS/KG/HR 10.01 mls/hr IV .Q24H [facility] Rx#: [id number] Oral 240 Output: Urine/Stool Mix 1 Other: Voiding Method Urinal Urinal # Voids 1 - Exam On exam, alert and oriented x3. HEENT: Conjunctivae normal. eyes normal. NECK: Not able to appreciate JVD. No thyroid enlargement. No LNs CARDIOVASCULAR: S1-S2 positive RESPIRATION: Breath sounds diminished in the bases. No rhonchi or crackles. No bronchial breathing. ABDOMEN: Soft, nontender . No guarding. no masses palpable. No ascites, No hepatosplenomegaly.Bowel sounds heard. LEGS: +3 pedal edema NERVOUS SYSTEM: Cranial N 2-12 grossly normal. Moves all 4 limbs. No focal deficits. No sensory deficit. No signs of cerebellar dysfucntion. Skin: no ulcer no rash - Labs CBC & Chem 7: 04/19/18 22:55 04/21/18 07:08 Labs: Abnormal Lab Results - Last 24 Hours (Table) 04/20/18 04/20/18 04/21/18 Range/Units 14:33 17:37 07:08 APTT 48.0 H 39.2 H (22.0-30.0) sec Chloride (98-107) mmol/L Carbon Dioxide (22-30) mmol/L BUN (9-20) mg/dL Creatinine (0.66-1.25) mg/dL Glucose (74-99) mg/dL Troponin I 1.120 H* (0.000-0.034) ng/mL 04/21/18 Range/Units 07:08 APTT (22.0-30.0) sec Chloride 97 L (98-107) mmol/L Carbon Dioxide 35 H (22-30) mmol/L BUN 30 H (9-20) mg/dL Creatinine 2.36 H (0.66-1.25) mg/dL Glucose 106 H (74-99) mg/dL Troponin I (0.000-0.034) ng/mL Microbiology - Last 24 Hours (Table) 04/19/18 22:55 Blood Culture - Preliminary Blood No Growth after 24 hours Assessment and Plan Assessment: - Rule out non-STEMI - History of A. fib - History of CAD and stent placement - C KD - CHF exacerbation - Hypertension - Hyperlipidemia Plan - Patient's kidney functions are high when compared to baseline today. We'll consult nephrology - Further doses of diuretics as per nephrology recommendations - Patient's troponins were high. He is maintained on heparin drip right now. Cardiology on board. - Continue rest of the home medications - We will continue to monitor the patient Time with Patient: Greater than 30
[2018-04-21] MEDS: HEPARIN SOD,PORK IN 0.45% NACL 25,000 UNIT in 0.45% NACL 1 250ML.BAG IV SCH (11:08)
--- NOTE | 2018-04-21 12:15 | P.PN ---
Subjective This is a pleasant 73-year-old male past medical history significant for coronary artery disease s/p stent placement at [facility] in [place], paroxysmal atrial fibrillation, hypertension, dyslipidemia, chronic kidney disease and congestive cardiac failure. He follows with a office machines sales representative out of the [facility] Dr. Meneses. He is seen and examined sitting up in the chair with his at the bedside. His troponin profile indicates the quite possibly has suffrered a non- ST elevated [facility]. Echocardiogram obtained reveals preserved left ventricular systolic function with ejection fraction 55-60%, severely dilated left atrium with mild aortic regurgitation. Blood pressure 125/57 heart rate 54 afebrile maintaining oxygen saturation on room air. Currently maintained on aspirin 81 mg daily, atorvastatin 20 mg daily, Bumex 2 mg IV daily, heparin infusion, Imdur 60 mg daily, labetalol 600 mg twice a day, losartan 100 mg daily, Ranexa 1000 mg twice a day. He denies symptoms of chest pain, increasing shortness of breath, dizziness or palpitations. GENERAL: Well-appearing, well-nourished and in no acute distress. Obese. NECK: Supple without JVD or thyromegaly. LUNGS: Breath sounds clear to auscultation bilaterally. Respiration equal and unlabored. No wheezes, rales or rhonchi. HEART: Regular rate and rhythm without murmurs, rubs or gallops. S1 and S2 heard. EXTREMITIES: Normal range of motion, Dylan wraps in place bilaterally. ASSESSMENT Acute fst-EE-dybqbpqy myocardial infarction Chronic kidney disease Bilateral lower extremity edema with cellulitis Acute on chronic diastolic heart failure Hypertension Dyslipidemia Paroxysmal atrial fibrillation on long-term anticoagulation currently maintaining sinus mechanism PLAN Obtain records from [facility] of previous catheterization. states last procedure they were told there is nothing else that can be done with his heart. Appreciate nephrology recommendation regarding possibility of proceeding with cardiac catheterization. Continue current medical regimen. NPO after midnight tonight, further recommendations to follow. He may either undergo cath here tomorrow or [facility] to his office machines sales representative tomorrow. Nurse Practitioner note has been reviewed, I agree with a documented findings and plan of care. Patient was seen and examined. Objective - Vital Signs Vital signs: Vital Signs Temp 96.1 F L 04/21/18 11:52 Pulse 54 L 04/21/18 11:57 Resp 18 04/21/18 11:57 BP 125/57 04/21/18 11:52 Pulse Ox 91 L 04/21/18 11:52 Intake & Output 04/20/18 04/21/18 04/21/18 18:59 06:59 18:59 Intake Total 488.900 Output Total 1 Balance -1 488.900 Weight 122.9 kg 122.6 kg Intake: Intake, IV Titration 248.900 Amount Heparin Sod,Pork in 0.45% 248.900 NaCl 25,000 unit In 0.45 % NaCl 1 250ml.bag @ 8.1 UNITS/KG/HR 10.01 mls/hr IV .Q24H [facility] Rx#: [id number] Oral 240 Output: Urine/Stool Mix 1 Other: Voiding Method Urinal Urinal Urinal # Voids 1 1 - Labs CBC & Chem 7: 04/19/18 22:55 04/21/18 07:08 Labs: Abnormal Lab Results - Last 24 Hours (Table) 04/20/18 04/20/18 04/21/18 Range/Units 14:33 17:37 07:08 APTT 48.0 H 39.2 H (22.0-30.0) sec Chloride (98-107) mmol/L Carbon Dioxide (22-30) mmol/L BUN (9-20) mg/dL Creatinine (0.66-1.25) mg/dL Glucose (74-99) mg/dL Troponin I 1.120 H* (0.000-0.034) ng/mL 04/21/18 Range/Units 07:08 APTT (22.0-30.0) sec Chloride 97 L (98-107) mmol/L Carbon Dioxide 35 H (22-30) mmol/L BUN 30 H (9-20) mg/dL Creatinine 2.36 H (0.66-1.25) mg/dL Glucose 106 H (74-99) mg/dL Troponin I (0.000-0.034) ng/mL Microbiology - Last 24 Hours (Table) 04/19/18 22:55 Blood Culture - Preliminary Blood No Growth after 24 hours
--- NOTE | 2018-04-21 13:08 | P.NPCON ---
History of Present Illness - Reason for Consult acute renal failure - Chief Complaint Burning in the chest. - History of Present Illness 73-year-old gentleman coming to the hospital with burning in the chest. Currently being treated as ACS with heparin drip. 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 He did had episodes of acute kidney injuries in the past with a peak creatinine of 4.0 MG per DL.. He also has diastolic CHF. He follows with the ID, denies seeing a toolmaker helper as outpatient. When he presented to the hospital he was hypertensive. He also takes diuretics 4 mg of Bumex at home and Cozaar. No nausea vomiting diarrhea. Denies taking NSAIDs at home, no recent contrast studies. Creatinine was 1.8 MG per DL on admission and 2.3 MG per DL today. Documented episodes of hypotension with a low systolic blood pressure in 90s. He denies incomplete emptying of bladder, difficulty urinary stream. Review of Systems Constitutional: Reports as per HPI Past Medical History Past Medical History: Atrial Fibrillation, Coronary Artery Disease (CAD), Chest Pain / Angina, Heart Failure, Hyperlipidemia, Hypertension, Myocardial Infarction (CO), Osteoarthritis (OA), Renal Disease Additional Past Medical History / Comment(s): ? 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 pt stated has slept in recliner chair for past 10 years, uti ecoli 2013. gout in past, djd, lumbar disc disease. restless leg , leg cellulitis/swelling, falls/ Last Myocardial Infarction Date:: 2009 History of Any Multi-Drug Resistant Organisms: Acinetobacter (MDRO), Other MDRO Date of last positivie culture/infection: 04/02/2018 MDRO Source:: leg wound Past Surgical History: Heart Catheterization With Stent, Tonsillectomy Additional Past Surgical History / Comment(s): [id number] stents, rt hand sx to repair severed lig/tendons(age 20) has limited use of index finger Past Anesthesia/Blood Transfusion Reactions: No Reported Reaction Additional Past Anesthesia/Blood Transfusion Reaction / Comment(s): clausterphobia Date of Last Stent Placement:: 2009 Past Psychological History: Depression Additional Psychological History / Comment(s): PT RESIDES WITH HIS SPOUSE. PT SERVED IN THE [employer] ([employer]) WHEN YOUNGER ( [employer]) AND AFTERWARDS WORKED FOR [employer]. HE USES A WHEELCHAIR PRN. HE DRIVES. HE SLEEPS IN A RECLINER. Smoking Status: Never smoker Past Alcohol Use History: None Reported Additional Past Alcohol Use History / Comment(s): Patient is a lifelong nonsmoker. He denies any marijuana or illicit drug use. He denies any alcohol use. He lives at home with his in their cats in the home. 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 He has been on disability and served in [place] for 2 years in the [employer] for 7 years. Past Drug Use History: None Reported - Past Family History Mother Family Medical History: Cancer Additional Family Medical History / Comment(s): breast cancer, heart problems was on warfarin(pt stated she bled out) Father Family Medical History: Coronary Artery Disease (CAD), Myocardial Infarction (CO ) Additional Family Medical History / Comment(s): Father had his 1st CO in his 50s and then from his 2nd CO at the age of 74yrs. Medications and Allergies Home Medications Medication Instructions Recorded Confirmed Type Aspirin 81 mg PO DAILY 07/03/13 04/20/18 History FLUoxetine HCL [PROzac] 20 mg PO DAILY@1000 07/03/13 04/20/18 History Labetalol HCl [Trandate] 600 mg PO BID@1000,2200 07/03/13 04/20/18 History Terazosin [Hytrin] 8 mg PO HS@0000 12/25/13 04/20/18 History Isosorbide Mononitrate ER [Imdur] 60 mg PO DAILY@1000 03/11/15 04/20/18 History Rivaroxaban [Xarelto] 15 mg PO HS 04/20/16 04/20/18 History rOPINIRole HCL [Requip] 0.5 mg PO TID@0000,1000,1700 12/25/16 04/20/18 History LORazepam [Ativan] 1 mg PO TID@0000,1000,1700 04/27/17 04/20/18 History Ranolazine [Ranexa] 1,000 mg PO BID@0800,2200 04/27/17 04/20/18 History oxyCODONE HCL [Roxicodone] 5 mg PO BID PRN 04/27/17 04/20/18 History traZODone HCL [Desyrel] 100 mg PO HS@0000 04/27/17 04/20/18 History Bumetanide 4 mg PO DAILY 04/02/18 04/20/18 History Atorvastatin [Lipitor] 20 mg PO DAILY 04/20/18 04/20/18 History Losartan Potassium 100 mg PO DAILY 04/20/18 04/20/18 History Nitroglycerin Sl Tabs [Nitrostat] 0.4 mg SUBLINGUAL Q5M PRN 04/20/18 04/20/18 History Omeprazole 20 mg PO DAILY 04/20/18 04/20/18 History QUEtiapine [SEROquel] 25 mg PO HS 04/20/18 04/20/18 History Allergies Allergy/AdvReac Type Severity Reaction Status Date / Time amlodipine AdvReac CONSTIPATIO Verified 04/20/18 07:53 N atenolol AdvReac MALE ED Verified 04/20/18 07:53 hydrochlorothiazide AdvReac RENAL Verified 04/20/18 07:53 IMPAIRMENT pravastatin AdvReac Rash/Hives Verified 04/20/18 07:53 Physical Exam Vitals: Vital Signs Temp Pulse Resp BP Pulse Ox 04/21/18 11:57 54 L 18 04/21/18 11:52 96.1 F L 54 L 18 125/57 91 L 04/21/18 08:00 96.1 F L 83 18 96/51 93 L 04/21/18 03:10 97.7 F 75 18 130/62 93 L 04/21/18 00:00 96.8 F L 78 18 111/55 93 L 04/20/18 20:00 96.9 F L 90 18 108/55 93 L 04/20/18 16:00 97.0 F L 84 18 122/55 94 L Intake and Output 04/20/18 04/21/18 04/21/18 22:59 06:59 14:59 Intake Total 488.900 Output Total 1 Balance -1 488.900 Intake: Intake, IV Titration 248.900 Amount Heparin Sod,Pork in 0.45% 248.900 NaCl 25,000 unit In 0.45 % NaCl 1 250ml.bag @ 8.1 UNITS/KG/HR 10.01 mls/hr IV .Q24H [facility] Rx#: [id number] Oral 240 Output: Urine/Stool Mix 1 Other: Voiding Method Urinal Urinal Urinal # Voids 1 Weight 122.6 kg No acute distress S1-S2 heard Lungs clear Dependent edema lower extremities Results - Lab Results Most recent lab results Calcium 8.4 mg/dL (8.4-10.2) 04/21/18 07:08 Magnesium 2.0 mg/dL (1.6-2.3) 04/19/18 22:55 04/19/18 22:55 04/21/18 07:08 Assessment and Plan Assessment: #1 acute kidney injury suspect hemodynamic ATN with rapid fluctuations in blood pressure. With hypokalemia, metabolic alkalosis, hypochloremia raises the concern for over diuresis with prerenal process. #2 lower extremity edema seems more dependent based on his body habitus #3 chronic kidney disease stage IV secondary to hypertensive nephrosclerosis, baseline creatinine 1.8-1.9 MG per DL. #4 hypertension with chronic kidney disease currently low normal #5 anemia with chronic kidney disease #6 acute coronary syndrome, currently on medical management #7 diastolic CHF Plan: #1 hold diuretics, Cozaar. Challenge with IV fluids 0.9 at 75 mL an hour. #2 renal ultrasound noted no hydronephrosis. #3 bladder scan to rule out urinary retention #4 decrease labetalol to 300 mg twice a day. With a goal systolic blood pressure of 120-140/90. #5 repeat labs in the morning #6 check urine analysis, iron studies and phosphorus.
[2018-04-21] MEDS: SODIUM CHLORIDE 0.9% 1,000 ML IV SCH (15:26)
[2018-04-21] MEDS: LABETALOL 100 MG TAB PO SCH (20:26)
[2018-04-21] MEDS: QUEtiapine 25 MG TAB PO SCH (20:26)
[2018-04-21] MEDS: traZODone HCL 100 MG TAB PO SCH (23:12)
[2018-04-21] MEDS: DOXAZOSIN 4 MG TAB PO SCH (23:12)
[2018-04-22] MEDS: SODIUM CHLORIDE 0.9% 1,000 ML IV SCH (04:55)
[2018-04-22] MEDS: PANTOPRAZOLE 40 MG TABLET PO SCH (06:29)
[2018-04-22 07:58] LABS: HCT 27.6 % (39.0-53.0); HGB 8.8 gm/dL (13.0-17.5); MCHC 31.7 g/dL (31.0-37.0); MCV 100.9 fL (80.0-100.0); Macrocytosis Slight; Mean Platelet Volume 6.8; Platelet Count 289 k/uL (150-450); RBC 2.74 m/uL (4.30-5.90); RDW 14.7 % (11.5-15.5)
[2018-04-22 08:19] LABS: Calcium 8.7 mg/dL (8.4-10.2); Phosphorus 3.3 mg/dL (2.5-4.5); Potassium 3.9 mmol/L (3.5-5.1)
[2018-04-22] MEDS: FLUoxetine HCL 20 MG CAP PO SCH (11:56)
[2018-04-22] MEDS: RANOLAZINE 500 MG TAB.ER.12H PO SCH ×2 (11:56→20:48)
[2018-04-22] MEDS: ISOSORBIDE MONONITRATE ER 60 MG TAB.ER.24H PO SCH (11:56)
[2018-04-22] MEDS: ATORVASTATIN 20 MG TAB PO SCH (11:56)
[2018-04-22] MEDS: LORazepam 1 MG TAB PO SCH ×3 (11:56→23:04)
[2018-04-22] MEDS: ASPIRIN 81 MG PO SCH (11:57)
[2018-04-22] MEDS: LABETALOL 100 MG TAB PO SCH ×2 (11:57→20:47)
--- NOTE | 2018-04-22 12:31 | P.PN ---
Subjective Says that he's doing good today. He has no chest pain No cough no shortness of breath Legs are still swollen but +3 [address] the way up to the knees 04/22/2018 No new issues right now no chest pain racing heart Patient has difficulty ambulating secondary to the problems with his knees going on chronically Objective - Vital Signs Vital signs: Vital Signs Temp 97.3 F L 04/22/18 08:00 Pulse 64 04/22/18 12:00 Resp 16 04/22/18 12:00 BP 187/86 04/22/18 12:00 Pulse Ox 93 L 04/22/18 12:00 Intake & Output 04/21/18 04/22/18 04/22/18 18:59 06:59 18:59 Intake Total 803.900 615 Balance 803.900 615 Weight 125.1 kg Intake: Intake, IV Titration 323.900 375 Amount Heparin Sod,Pork in 0.45% 248.900 NaCl 25,000 unit In 0.45 % NaCl 1 250ml.bag @ 8.1 UNITS/KG/HR 10.01 mls/hr IV .Q24H [facility] Rx#: [id number] Sodium Chloride 0.9% 1, 75 375 000 ml @ 75 mls/hr IV . [id number] [facility] Rx#:[id number] Oral 480 240 Other: Voiding Method Urinal Urinal Urinal # Voids 1 2 - Exam On exam, alert and oriented x3. HEENT: Conjunctivae normal. eyes normal. NECK: Not able to appreciate JVD. No thyroid enlargement. No LNs CARDIOVASCULAR: S1-S2 positive RESPIRATION: Breath sounds diminished in the bases. No rhonchi or crackles. No bronchial breathing. ABDOMEN: Soft, nontender . No guarding. no masses palpable. No ascites, No hepatosplenomegaly.Bowel sounds heard. LEGS: +3 pedal edema NERVOUS SYSTEM: Cranial N 2-12 grossly normal. Moves all 4 limbs. No focal deficits. No sensory deficit. No signs of cerebellar dysfucntion. Skin: no ulcer no rash - Labs CBC & Chem 7: 04/22/18 07:10 04/22/18 06:00 Labs: Abnormal Lab Results - Last 24 Hours (Table) 04/21/18 04/22/18 04/22/18 Range/Units 14:20 06:00 06:00 RBC (4.30-5.90) m/uL Hgb (13.0-17.5) gm/dL Hct (39.0-53.0) % MCV (80.0-100.0) fL APTT 47.9 H 56.7 H (22.0-30.0) sec Carbon Dioxide 31 H (22-30) mmol/L BUN 33 H (9-20) mg/dL Creatinine 2.43 H (0.66-1.25) mg/dL Glucose 100 H (74-99) mg/dL 04/22/18 Range/Units 07:10 RBC 2.74 L (4.30-5.90) m/uL Hgb 8.8 L (13.0-17.5) gm/dL Hct 27.6 L (39.0-53.0) % MCV 100.9 H (80.0-100.0) fL APTT (22.0-30.0) sec Carbon Dioxide (22-30) mmol/L BUN (9-20) mg/dL Creatinine (0.66-1.25) mg/dL Glucose (74-99) mg/dL Microbiology - Last 24 Hours (Table) 04/19/18 22:55 Blood Culture - Preliminary Blood No Growth after 48 hours Assessment and Plan Assessment: - Rule out non-STEMI - History of A. fib - History of CAD and stent placement - C KD - CHF exacerbation - Hypertension - Hyperlipidemia Plan - Patient nephrology recommendations. Diuretics held .Rest of the hypertension medications were adjusted - Cardiology reading on her records from the [facility] regarding his previous cath and echo in order to make a decision - Patient will eventually need PTOT and recommendations from them after cardiac and nephro workup is completed - Continue the current plan Time with Patient: Greater than 30
[2018-04-22] MEDS ORDERED: ASPIRIN 325 MG TAB PO STA (13:59)
[2018-04-22] MEDS ORDERED: ALPRAZolam 0.25 MG TAB PO PRN (13:59)
[2018-04-22] MEDS ORDERED: NITROGLYCERIN SL TABS 0.4 MG TAB SUBLINGUAL PRN (13:59)
[2018-04-22] MEDS ORDERED: ALPRAZolam 0.5 MG TAB PO PRN (13:59)
[2018-04-22] MEDS ORDERED: ATORVASTATIN 80 MG TAB PO STA (13:59)
[2018-04-22] MEDS ORDERED: SODIUM CHLORIDE 0.9% 1,000 ML in EMPTY BAG 1 BAG IV ONE (13:59)
--- NOTE | 2018-04-22 15:16 | P.PN ---
Subjective Progress Note Date: 04/22/18 This is a 73-year-old gentleman with history of coronary artery disease with history of prior stent placement done in [facility] in [place]. Patient also has history of paroxysmal atrial fibrillation, hyperlipidemia, hypertension , chronic kidney disease and also congestive heart failure. Patient had a recent admission to this hospital because of cellulitis. Patient was brought to the hospital yesterday because patient was complaining of some burning pain in the epigastric area. Patient took some Maalox at home with some relief. He was also given some Maalox and pain pills with relief of pain. Since last night patient has been stable without any discomfort. His first troponin is normal but second troponin went up to 0.54. His creatinine is however is in the range of 1.87. At the time of my examination patient is not having any discomfort in his EKG showed sinus rhythm with diffuse nonspecific ST-T abnormalities. Prolonged QT interval. No acute ST elevation noted. Patient had similar troponin elevation in 2017. Echocardiogram previously showed fairly preserved LV function. His proBNP is elevated to more than 3000. I'm going to continue monitoring his troponin values and get another echocardiogram. Further recommendations depend upon the clinical course. If troponin levels show a trend consistent with acute WI, patient may need further intervention. Indwelling continue with heparin, nitrates, beta blockers and diuretics as tolerated. 04/22/2017 Patient was seen and examined this morning, denies any chest pain at present. We did speak with the automotive worker foreman at the [facility] today who stated that she would accept the patient has a transfer, to undergo cardiac catheterization there. She also states that patient's most recent cardiac catheterization revealed distal occlusion of the LAD, small circumflex artery, RCA had diffuse disease, and medical therapy was advised at that time. The patient and family were made aware that they were accepting a transfer at the [facility], however it appears that a bed may not be available for 4 or 5 days. Because of that patient will tentatively be scheduled to undergo cardiac catheterization here tomorrow with Dr. Lobo. Blood pressure at noon today 186/86 with a heart rate in the 60s. White blood cell count 10, hemoglobin 8.8, platelet count 289. Sodium 138, potassium 3.9, BUN 33 and creatinine 2.4. We'll start the patient on a Catapres patch for more optimal blood pressure control. Objective - Vital Signs Vital signs: Vital Signs Temp 97.3 F L 04/22/18 08:00 Pulse 64 04/22/18 12:00 Resp 16 04/22/18 14:38 BP 187/86 04/22/18 12:00 Pulse Ox 93 L 04/22/18 12:00 Intake & Output 04/21/18 04/22/18 04/22/18 18:59 06:59 18:59 Intake Total 803.900 615 Balance 803.900 615 Weight 125.1 kg Intake: Intake, IV Titration 323.900 375 Amount Heparin Sod,Pork in 0.45% 248.900 NaCl 25,000 unit In 0.45 % NaCl 1 250ml.bag @ 8.1 UNITS/KG/HR 10.01 mls/hr IV .Q24H [facility] Rx#: [id number] Sodium Chloride 0.9% 1, 75 375 000 ml @ 75 mls/hr IV . [id number] [facility] Rx#:[id number] Oral 480 240 Other: Voiding Method Urinal Urinal Urinal # Voids 1 2 - Exam GENERAL EXAM: Patient is alert and oriented and doesn't appear to be in any acute distress HEENT: Normocephalic. Normal reaction of pupils, equal size, normal range of extraocular motion. NECK: No masses, no nuchal rigidity. CHEST: No chest wall deformity. LUNGS: Equal air entry with no crackles or wheeze. HEART: S1 and S2 normal with no audible mumurs or gallops. Regular rhythm, femorals equal on both sides.. ABDOMEN: No hepatosplenomegaly, normal bowel sounds, no guarding or rigidity. SKIN: No rashes CENTRAL NERVOUS SYSTEM: No focal deficits. EXTREMITIES: Both legs are wrapped - Labs CBC & Chem 7: 04/22/18 07:10 04/22/18 06:00 Labs: Abnormal Lab Results - Last 24 Hours (Table) 04/22/18 04/22/18 04/22/18 Range/Units 06:00 06:00 07:10 RBC 2.74 L (4.30-5.90) m/uL Hgb 8.8 L (13.0-17.5) gm/dL Hct 27.6 L (39.0-53.0) % MCV 100.9 H (80.0-100.0) fL APTT 56.7 H (22.0-30.0) sec Carbon Dioxide 31 H (22-30) mmol/L BUN 33 H (9-20) mg/dL Creatinine 2.43 H (0.66-1.25) mg/dL Glucose 100 H (74-99) mg/dL Microbiology - Last 24 Hours (Table) 04/19/18 22:55 Blood Culture - Preliminary Blood No Growth after 48 hours Assessment and Plan Plan: ASSESSMENT Acute [id number] myocardial infarction Chronic kidney disease Bilateral lower extremity edema with cellulitis Acute on chronic diastolic heart failure Hypertension Dyslipidemia Paroxysmal atrial fibrillation on long-term anticoagulation currently maintaining sinus mechanism Plan We'll add a Catapres patch to the patient's medication regime for more optimal blood pressure control. If the bed becomes available at the [facility] patient will transfer there, otherwise he will be scheduled here to undergo cardiac catheterization tomorrow with Dr. Lobo. DNP note has been reviewed, I agree with a documented findings and plan of care. Patient was seen and examined.
[2018-04-22] MEDS ORDERED: cloNIDine 0.1 MG/24HR PATCH TRANSDERM SCH (15:30)
[2018-04-22 17:54] LABS: Iron Saturation 17.07 (15.00-50.00)
--- NOTE | 2018-04-22 18:14 | PN ---
PROGRESS NOTE Patient is seen for followup for acute kidney injury. He was admitted to the hospital with a serum creatinine of about 1.85. It has progressively increased to 2.43 today. Patient is complaining of increased lower extremity edema. He states he is also mildly short of breath. He was on IV fluids initially, which are now discontinued. Patient has also had an elevated troponin level and is maintained on IV heparin. Previous creatinine has been about 1.9 to 2 mg/dL in March and April of this year, with lowest creatinine at 1.5 and 1.3, which was in 2017. On examination today, blood pressure was 144/65. Earlier we had a blood pressure of 187/86, heart rate 64 per minute. Patient was afebrile. EXAMINATION OF THE HEART: S1 and S2. EXAMINATION OF LUNGS: Decreased breath sounds at the bases. Bilateral basal crackles are heard. ABDOMEN: Soft, obese, non-tender. Examination of lower extremities shows edema 2+ bilaterally. Both extremities are wrapped. There is discoloration noted, mainly darker pigmentation. OYSTER WORKER exam is grossly intact. Labs show sodium 139, potassium 3.6, chloride 97, BUN 30, serum creatinine 2.36, hemoglobin of 9.5 g/dL. ASSESSMENT: 1. Acute kidney injury associated with some degree of hypotension hypoperfusion and cardiorenal syndrome. Currently patient is volume-overloaded. I will give him IV Lasix. We will hold off on the IV fluids. Continue to hold off on the Cozaar as well. 2. Chronic kidney disease, stage IV, with baseline about 1.8 to 1.9 secondary to nephrosclerosis. 3. Acute coronary syndrome, maintained on IV heparin. 4. Severe concentric left ventricular hypertrophy with ejection fraction 55% to 60% with severely dilated left atrium. PLAN: Discontinue IV fluids. Lasix x1. Repeat labs in a.m. Avoid hypotension. Continue to hold off on angiotensin receptor blockers. Check ultrasound of the kidneys and check post-void residual to rule out urine retention. Check urinalysis as well. MMODL / IJN: [id number] /
--- NOTE | 2018-04-22 19:11 | US ---
EXAMINATION TYPE: US kidneys/renal and bladder DATE OF EXAM: 04/22/2018 COMPARISON: US 04/05/2018 CLINICAL HISTORY: rf. Elevated BUN/creatinine. EXAM MEASUREMENTS: Right Kidney: 12.0 x 5.8 x 5.5 cm Left Kidney: 13.5 x x 5.8 cm Post Void Residual Volume: Unable to calculate due to patient unable to get out of chair. mL Right Kidney: No hydronephrosis or masses seen Left Kidney: Lateral mid/lower cyst = 1.2 x 0.9 x 0.9 cm, Upper pole cyst = 2.8 x 2.6 x 2.2 cm No hy dronephrosis seen. Bladder: Sub optimal exam of bladder due to patient sitting in chair with large pannus. There is no evidence for hydronephrosis at this point in time. No nephrolithiasis is seen. No suspi cious solid masses are identified. Smaller roughly 1.0 cm simple appearing cyst laterally mid pole le francisca left kidney is not clearly seen on prior exam. The urinary bladder is not greatly distended. IMPRESSION: No hydronephrosis is evident bilaterally. Suboptimal study without significant change fro m prior.
[2018-04-22] MEDS: HEPARIN SOD,PORK IN 0.45% NACL 25,000 UNIT in 0.45% NACL 1 250ML.BAG IV SCH ×2 (20:19→20:55)
[2018-04-22] MEDS: QUEtiapine 25 MG TAB PO SCH (20:48)
[2018-04-22] MEDS: DOXAZOSIN 4 MG TAB PO SCH (23:04)
[2018-04-22] MEDS: traZODone HCL 100 MG TAB PO SCH (23:04)
[2018-04-23] MEDS: ATORVASTATIN 20 MG TAB PO SCH (04:44)
[2018-04-23] MEDS: PANTOPRAZOLE 40 MG TABLET PO SCH (04:44)
[2018-04-23] MEDS: ISOSORBIDE MONONITRATE ER 60 MG TAB.ER.24H PO SCH (04:44)
[2018-04-23] MEDS: RANOLAZINE 500 MG TAB.ER.12H PO SCH ×2 (04:44→19:48)
[2018-04-23] MEDS: ASPIRIN 81 MG PO SCH (04:44)
[2018-04-23] MEDS: LABETALOL 100 MG TAB PO SCH ×2 (04:51→19:48)
[2018-04-23 06:05] LABS: HCT 26.6 % (39.0-53.0); HGB 8.6 gm/dL (13.0-17.5); MCH 33.1 pg (25.0-35.0); MCHC 32.4 g/dL (31.0-37.0); MCV 102.2 fL (80.0-100.0); Macrocytosis Slight; Mean Platelet Volume 6.5; Platelet Count 295 k/uL (150-450); RDW 15.1 % (11.5-15.5); WBC 7.2 k/uL (3.8-10.6)
[2018-04-23 06:18] LABS: Calcium 8.7 mg/dL (8.4-10.2); Potassium 3.7 mmol/L (3.5-5.1)
[2018-04-23] MEDS ORDERED: FUROSEMIDE 10 MG/ML 4 ML VIAL IV STA (09:23)
[2018-04-23] MEDS ORDERED: fentaNYL (PF) 50 MCG/ML 2 ML AMP ONE (10:39)
[2018-04-23] MEDS ORDERED: LIDOCAINE 1% INJ 10MG/ML (20 ML MDV) ONE (10:39)
[2018-04-23] MEDS ORDERED: VERAPAMIL 2.5 MG/ML 2 ML AMP ONE (11:01)
[2018-04-23] MEDS ORDERED: fentaNYL (PF) 50 MCG/ML 2 ML AMP IVP ONE (11:06)
[2018-04-23] MEDS ORDERED: MIDAZOLAM 2 MG/2 ML VIAL IVP ONE (11:06)
[2018-04-23] MEDS ORDERED: SODIUM CHLORIDE 0.9% 1,000 ML IV ONE (11:07)
[2018-04-23] MEDS ORDERED: LIDOCAINE 1%-EPI 1:100,000 20 ML VIAL SQ ONE (11:11)
[2018-04-23] MEDS ORDERED: VERAPAMIL SYRINGE (5 MG/10 ML) INTRAARTER ONE (11:14)
[2018-04-23] MEDS ORDERED: HEPARIN SODIUM 1,000 UN/ML (10ML VL) ONE (11:16)
[2018-04-23] MEDS ORDERED: HEPARIN SODIUM 1,000 UN/ML (10ML VL) IV ONE (11:16)
[2018-04-23] MEDS ORDERED: IOPAMIDOL-370 150ML BTL INJ ONE (11:29)
[2018-04-23] MEDS ORDERED: RX INFO: IV CONTRAST WAS GIVEN 1 EACH MISC MISCELLANE PRN (11:41)
--- NOTE | 2018-04-23 11:54 | P.PCN ---
Date of Procedure: 04/23/18 Preoperative Diagnosis: Non-STEMI Postoperative Diagnosis: Diffuse coronary artery disease and moderate to severe disease involving the proximal LAD and moderate disease involving the midcircumflex and severe diffuse plaque and calcification Procedure(s) Performed: Left heart catheterization without left ventriculography Description of Procedure: HISTORY: This is a 73-year-old gentleman with history of ischemic heart disease with multiple stent placements including RCA and also left anterior descending, was admitted to the hospital with epigastric pain and abnormal troponin values size to of non-STEMI. Patient was advised to have a cardiac catheterization for definitive diagnosis. Patient and family were explained the risks and benefits of the procedure. In fact, patient prognosis at [facility] and we made arrangement to transfer him [facility]. Patient ,however, wanted to have the procedure done here. Patient has underlying renal failure and the risk of procedures high. Patient and family fully Understood and accepted. CONSENT:I have discussed the risks, benefits and alternative therapies for the above-mentioned procedure and for both sedation/analgesia as well as necessary blood product administration, if indicated, as they pertain to this patient. The patient has indicated understanding and acceptance of the risks and procedures discussed. [] PROCEDURE: Patient was brought to the lab in a fasting state. Patient was given some IV sedation. The right wrist is infiltrated with lidocaine and right radial artery was entered using Seldinger technique. A 6-Emirati catheter was left in place and selective coronary arteriography was performed. Patient tolerated the procedure well. The Ativan was applied No immediate complications were noted and patient was transferred to [facility] in a stable condition Conscious Sedation: Versed 1mg Fentanyl 50 g Duration 24minutes HEMODYNAMICS: The aortic pressure was about 160-170/80. The left ventricle end- diastolic pressure was 12-15. There was no gradient across the aortic valve SELECTIVE CORONARY ARTERIOGRAPHY: LEFT MAIN: Small and patent. Heavily calcified THE LEFT ANTERIOR DESCENDING CORONARY ARTERY: This is a good caliber was out with heavy calcification and diffuse disease throughout. There appears to be 7080% lesion of the proximal LAD before the origin of the first diagonal. There is a diffuse plaque throats rest of the LAD with probably areas of 60-70% stenosis THE LEFT CIRCUMFLEX AND IS CORONARY ARTERY:. This is a heavily calcified vessel. Again there appears to be intermittent disease with 60-70% lesion in the midportion THE RIGHT CORONARY ARTERY:. This is a dominant vessel with a diffuse plaque and calcification. It gives rise to good-sized PDA and PLV. The right coronary artery appears to be free of any significant focal lesion LEFT VENTRICULOGRAPHY:. Not performed FINAL IMPRESSION: Diffuse calcification and disease involving all 3 major vessels. There appears to be focal 70-80% lesion involving the proximal LAD before the origin of the septal branch and diagonal branch. The rest of the LAD has moderate diffuse disease. The circumflex also has intermittent disease with 60-70% lesion in the midportion. The right coronary artery appears to be free of significant focal lesion but has diffuse calcification and plaque. PLAN: The films were reviewed with the Dr. Rizzo, the on-call history card clerk. Because of a diffuse nature of the disease and heavy calcification. He advised that continued medical therapy. We also suggest that patient can go to [facility] for another opinion. Patient also has renal failure with creatinine about 2.2 and there is a contrast limitation PROGNOSIS: Guarded
[2018-04-23] MEDS ORDERED: MAG HYDROX/AL HYDROX/SIMETH 30 ML CUP PO PRN (12:03)
[2018-04-23] MEDS: LORazepam 1 MG TAB PO SCH ×3 (12:07→23:06)
--- NOTE | 2018-04-23 12:08 | PN ---
PROGRESS NOTE Patient is seen for followup for chronic kidney disease and acute kidney injury. His IV fluids were discontinued yesterday. Patient is complaining of increased lower extremity edema. Lasix was ordered yesterday. However, I do not believe that he got a dose. I will reorder a dose to be given today. Patient denies any shortness of breath, nausea, vomiting. Serum creatinine is somewhat improved at 2.2 from 2.4 yesterday. PHYSICAL EXAMINATION: Blood pressure was 163/67, heart rate 50 per minute. He is afebrile. Examination of the heart, S1, S2. Examination of the lungs, bilateral breath sounds are heard. Abdomen is soft, nontender, obese. Examination of the lower extremities shows chronic edema. Chronic skin changes. Bilateral extremities are wrapped. LABS: Show sodium 139, potassium 3.7, chloride 100, CO2 is 31, BUN 30, serum creatinine 2.23, hemoglobin 8.6. ASSESSMENT: 1. Chronic kidney disease secondary to nephrosclerosis. Previous creatinine 1.8-1.9, NKF stage IV. 2. Acute kidney injury, most likely cardiorenal. Patient did have evidence of hypotension and hypoperfusion initially. He was on PIOTR inhibitors which are currently on hold. Patient also received IV fluids initially, which are now discontinued secondary to volume overload. Need to rule out urine retention. 3. Acute coronary syndrome, maintained on IV heparin. 4. Concentric LVH with ejection fraction 55%-60% with severely dilated left atrium. PLAN: Lasix 40 mg IV x1. Continue off of IV fluids. Check postvoid residual. Ultrasound of the kidneys done yesterday does not show any evidence of hydronephrosis. MMODL / IJN: [id number] /
[2018-04-23] MEDS: FLUoxetine HCL 20 MG CAP PO SCH (12:11)
--- NOTE | 2018-04-23 14:20 | P.PN ---
Subjective Progress Note Date: 04/23/18 This is a 73-year-old gentleman with history of coronary artery disease with history of prior stent placement done in [facility] in [place]. Patient also has history of paroxysmal atrial fibrillation, hyperlipidemia, hypertension, chronic kidney disease and also congestive heart failure. Patient had a recent admission to this hospital because of cellulitis. Patient was brought to the hospital yesterday because patient was complaining of some burning pain in the epigastric area. Patient took some Maalox at home with some relief. He was also given some Maalox and pain pills with relief of pain. Since last night patient has been stable without any discomfort. His first troponin is normal but second troponin went up to 0.54. His creatinine is however is in the range of 1.87. At the time of my examination patient is not having any discomfort in his EKG showed sinus rhythm with diffuse nonspecific ST-T abnormalities. Prolonged QT interval. No acute ST elevation noted. Patient had similar troponin elevation in 2017. Echocardiogram previously showed fairly preserved LV function. His proBNP is elevated to more than 3000. I'm going to continue monitoring his troponin values and get another echocardiogram. Further recommendations depend upon the clinical course. If troponin levels show a trend consistent with acute AK, patient may need further intervention. Indwelling continue with heparin, nitrates, beta blockers and diuretics as tolerated. 04/22/2018 Patient was seen and examined this morning, denies any chest pain at present. We did speak with the law researcher at the [facility] today who stated that she would accept the patient has a transfer, to undergo cardiac catheterization there. She also states that patient's most recent cardiac catheterization revealed distal occlusion of the LAD, small circumflex artery, RCA had diffuse disease, and medical therapy was advised at that time. The patient and family were made aware that they were accepting a transfer at the [facility], however it appears that a bed may not be available for 4 or 5 days. Because of that patient will tentatively be scheduled to undergo cardiac catheterization here tomorrow with Dr. Lobo. Blood pressure at noon today 186/86 with a heart rate in the 60s. White blood cell count 10, hemoglobin 8.8, platelet count 289. Sodium 138, potassium 3.9, BUN 33 and creatinine 2.4. We'll start the patient on a Catapres patch for more optimal blood pressure control. 04/23/2018 Patient underwent a cardiac catheterization yesterday which revealed diffuse calcification and disease involving 3 major vessels, there appears to be focal 7080% lesion involving the proximal LAD before the origin of the septal branch and diagonal branch. The rest of the LAD has moderate diffuse disease, circumflex also has intermediate disease with a 60-70% lesion in the midportion. The right coronary artery appears to be free of any significant focal lesion but has diffuse calcification and plaque. The films were reviewed with Dr. Rizzo the on-call scoreboard operator, because of the diffuse nature of the disease and heavy calcification was advised at this time was to continue maximal medical therapy and follow-up with his law [facility]. The patient was seen and examined this morning, denied any further chest pain or difficulty in breathing. His creatinine this morning 2.2, hemoglobin 8.6, denies any further chest discomfort. Objective - Vital Signs Vital signs: Vital Signs Temp 97.7 F 04/23/18 07:37 Pulse 56 L 04/23/18 13:27 Resp 16 04/23/18 13:27 BP 152/61 04/23/18 13:27 Pulse Ox 91 L 04/23/18 13:27 Intake & Output 04/22/18 04/23/18 04/23/18 18:59 06:59 18:59 Intake Total 240 815 290 Output Total 600 Balance 240 815 -310 Weight 125.4 kg Intake: IV 50 Intake, IV Titration 375 Amount Sodium Chloride 0.9% 1, 375 000 ml In Empty Bag 1 bag @ 1 ML/KG/HR 125.1 mls/ hr IV .Q8H ONE Rx#: [id number] Oral 240 440 240 Output: Urine 600 Other: Voiding Method Urinal Urinal Urinal # Voids 1 3 - Exam GENERAL EXAM: Patient is alert and oriented and doesn't appear to be in any acute distress HEENT: Normocephalic. Normal reaction of pupils, equal size, normal range of extraocular motion. NECK: No masses, no nuchal rigidity. CHEST: No chest wall deformity. LUNGS: Equal air entry with no crackles or wheeze. HEART: S1 and S2 normal with no audible mumurs or gallops. Regular rhythm, femorals equal on both sides.. ABDOMEN: No hepatosplenomegaly, normal bowel sounds, no guarding or rigidity. SKIN: No rashes CENTRAL NERVOUS SYSTEM: No focal deficits. EXTREMITIES: Both legs are wrapped, bilateral edema. Right radial site clean and dry, good distal pulse. - Labs CBC & Chem 7: 04/23/18 05:51 04/23/18 05:51 Labs: Abnormal Lab Results - Last 24 Hours (Table) 04/22/18 04/23/18 04/23/18 Range/Units 04:54 05:51 05:51 RBC 2.60 L (4.30-5.90) m/uL Hgb 8.6 L (13.0-17.5) gm/dL Hct 26.6 L (39.0-53.0) % MCV 102.2 H (80.0-100.0) fL APTT (22.0-30.0) sec Carbon Dioxide 31 H (22-30) mmol/L BUN 30 H (9-20) mg/dL Creatinine 2.23 H (0.66-1.25) mg/dL Glucose 115 H (74-99) mg/dL Iron 49 L (65-175) ug/dL 04/23/18 Range/Units 05:51 RBC (4.30-5.90) m/uL Hgb (13.0-17.5) gm/dL Hct (39.0-53.0) % MCV (80.0-100.0) fL APTT 43.8 H (22.0-30.0) sec Carbon Dioxide (22-30) mmol/L BUN (9-20) mg/dL Creatinine (0.66-1.25) mg/dL Glucose (74-99) mg/dL Iron (65-175) ug/dL Microbiology - Last 24 Hours (Table) 04/19/18 22:55 Blood Culture - Preliminary Blood No Growth after 72 hours Assessment and Plan Plan: ASSESSMENT Acute [id number] myocardial infarction Chronic kidney disease Bilateral lower extremity edema with cellulitis Acute on chronic diastolic heart failure Hypertension Dyslipidemia Paroxysmal atrial fibrillation on long-term anticoagulation currently maintaini ng sinus mechanism Plan At this point in time, we'll continue current IVs and diuretics as per nep hrology, check lytes BUN and creatinine in the morning. Plan for possible discharge home in 24 hours, follow-up appointment at the [facility]. DNP note has been reviewed, I agree with a documented findings and plan of care. Patient was seen and examined.
--- NOTE | 2018-04-23 15:33 | P.PN ---
Subjective Says that he's doing good today. He has no chest pain No cough no shortness of breath Legs are still swollen but +[address] up to the knees 04/22/2018 No new issues right now no chest pain racing heart Patient has difficulty ambulating secondary to the problems with his knees going on chronically 04/23/2018 Patient had a heart cath this morning. No acute interventions done. Cardiology recommended medical management No chest pain or racing heart but the patient is complaining of weight gain No cough or shortness of breath Objective - Vital Signs Vital signs: Vital Signs Temp 97.7 F 04/23/18 07:37 Pulse 57 L 04/23/18 14:27 Resp 16 04/23/18 14:27 BP 124/56 04/23/18 14:27 Pulse Ox 91 L 04/23/18 14:27 Intake & Output 04/22/18 04/23/18 04/23/18 18:59 06:59 18:59 Intake Total 240 815 290 Output Total 600 Balance 240 815 -310 Weight 125.4 kg Intake: IV 50 Intake, IV Titration 375 Amount Sodium Chloride 0.9% 1, 375 000 ml In Empty Bag 1 bag @ 1 ML/KG/HR 125.1 mls/ hr IV .Q8H ONE Rx#: [id number] Oral 240 440 240 Output: Urine 600 Other: Voiding Method Urinal Urinal Urinal # Voids 1 3 - Exam On exam, alert and oriented x3. HEENT: Conjunctivae normal. eyes normal. NECK: Not able to appreciate JVD. No thyroid enlargement. No LNs CARDIOVASCULAR: S1-S2 positive RESPIRATION: Breath sounds diminished in the bases. No rhonchi or crackles. No bronchial breathing. ABDOMEN: Soft, nontender . No guarding. no masses palpable. No ascites, No hepatosplenomegaly.Bowel sounds heard. LEGS: +3 pedal edema NERVOUS SYSTEM: Cranial N 2-12 grossly normal. Moves all 4 limbs. No focal deficits. No sensory deficit. No signs of cerebellar dysfucntion. Skin: no ulcer no rash - Labs CBC & Chem 7: 04/23/18 05:51 04/23/18 05:51 Labs: Abnormal Lab Results - Last 24 Hours (Table) 04/22/18 04/23/18 04/23/18 Range/Units 04:54 05:51 05:51 RBC 2.60 L (4.30-5.90) m/uL Hgb 8.6 L (13.0-17.5) gm/dL Hct 26.6 L (39.0-53.0) % MCV 102.2 H (80.0-100.0) fL APTT (22.0-30.0) sec Carbon Dioxide 31 H (22-30) mmol/L BUN 30 H (9-20) mg/dL Creatinine 2.23 H (0.66-1.25) mg/dL Glucose 115 H (74-99) mg/dL Iron 49 L (65-175) ug/dL 04/23/18 Range/Units 05:51 RBC (4.30-5.90) m/uL Hgb (13.0-17.5) gm/dL Hct (39.0-53.0) % MCV (80.0-100.0) fL APTT 43.8 H (22.0-30.0) sec Carbon Dioxide (22-30) mmol/L BUN (9-20) mg/dL Creatinine (0.66-1.25) mg/dL Glucose (74-99) mg/dL Iron (65-175) ug/dL Microbiology - Last 24 Hours (Table) 04/19/18 22:55 Blood Culture - Preliminary Blood No Growth after 72 hours Assessment and Plan Assessment: - Rule out non-STEMI - History of A. fib - History of CAD and stent placement - C KD - CHF exacerbation - Hypertension - Hyperlipidemia Plan - Heart cath was done today. Cardiology recommended medical management - Patient is to get his medications optimized - Nephrology following the patienT for acute kidney injury on top of chronic kidney disease. Was given a dose of Lasix today as he had weight gain - We will have PTOT evaluate the patient and give the recommendations - Patient was instructed that he might need inpatient rehab for at least a few weeks as he is too weak to walk. Patient is refusing inpatient rehab at this stage and says that he wants to go home and he'll do physical therapy at home. Time with Patient: Greater than 30
[2018-04-23] MEDS: QUEtiapine 25 MG TAB PO SCH (23:05)
[2018-04-23] MEDS: DOXAZOSIN 4 MG TAB PO SCH (23:05)
[2018-04-23] MEDS ORDERED: ACETAMINOPHEN TAB 325 MG TAB PO PRN (23:12)
[2018-04-23] MEDS: traZODone HCL 100 MG TAB PO SCH (23:18)
[2018-04-24] MEDS: PANTOPRAZOLE 40 MG TABLET PO SCH (06:28)
[2018-04-24 07:27] LABS: Calcium 8.8 mg/dL (8.4-10.2)
[2018-04-24] MEDS: ISOSORBIDE MONONITRATE ER 60 MG TAB.ER.24H PO SCH (08:24)
[2018-04-24] MEDS: RANOLAZINE 500 MG TAB.ER.12H PO SCH ×2 (08:24→20:36)
[2018-04-24] MEDS: LORazepam 1 MG TAB PO SCH ×3 (08:25→23:53)
[2018-04-24] MEDS: FLUoxetine HCL 20 MG CAP PO SCH (08:25)
[2018-04-24] MEDS: LABETALOL 100 MG TAB PO SCH ×2 (08:25→20:35)
[2018-04-24] MEDS: ATORVASTATIN 20 MG TAB PO SCH (08:26)
[2018-04-24] MEDS: ASPIRIN 81 MG PO SCH (08:26)
[2018-04-24] MEDS ORDERED: FUROSEMIDE 10 MG/ML 4 ML VIAL IV STA ×2 (10:14→20:03)
[2018-04-24 10:53] VITALS: BMI 40.6
--- NOTE | 2018-04-24 11:00 | XR ---
EXAMINATION TYPE: XR chest 2V DATE OF EXAM: 04/24/2018 COMPARISON: 04/19/2018 INDICATION: Rule out infiltrate. No history provided. TECHNIQUE: Frontal and lateral views of the chest are obtained. FINDINGS: The heart size is upper limits of normal. The pulmonary vasculature is prominent. Diffuse increased alveolar infiltrate appears to be present. This is slightly improved from the li rison. Minimal pleural effusions are present. IMPRESSION: 1. Findings suggestive for mild congestive heart failure slightly improved from comparison. Continued follow-up is recommended.
--- NOTE | 2018-04-24 12:26 | P.PN ---
Subjective Says that he's doing good today. He has no chest pain No cough no shortness of breath Legs are still swollen but +3 [address] edema [address] the way up to the knees 04/22/2018 No new issues right now no chest pain racing heart Patient has difficulty ambulating secondary to the problems with his knees going on chronically 04/23/2018 Patient had a heart cath this morning. No acute interventions done. Cardiology recommended medical management No chest pain or racing heart but the patient is complaining of weight gain No cough or shortness of breath 04/24/2018 Patient said that he had low-grade temperature last night and he was ready. He had Tylenol last night. He is requiring oxygen over here. He monitors his desat into 85% on room air. He says that he did not use oxygen at home. He does not complain of chest pain or racing heart, he says that his shortness of breath is better Objective - Vital Signs Vital signs: Vital Signs Temp 96 F L 04/24/18 08:00 Pulse 70 04/24/18 04:00 Resp 16 04/24/18 11:32 BP 138/60 04/24/18 08:00 Pulse Ox 98 04/24/18 08:00 Intake & Output 04/23/18 04/24/18 04/24/18 18:59 06:59 18:59 Intake Total 690 480 Output Total 600 350 800 Balance 90 -350 -320 Weight 124.8 kg 124.8 kg Intake: IV 50 Intake, IV Titration 400 Amount Sodium Chloride 0.9% 1, 400 000 ml @ 0 mls/hr IV .[facility] ONE Rx#:[id number] Oral 240 480 Output: Urine 600 300 800 Post Void Residual 50 Other: Voiding Method Urinal Urinal Urinal - Exam On exam, alert and oriented x3. HEENT: Conjunctivae normal. eyes normal. NECK: Not able to appreciate JVD. No thyroid enlargement. No LNs CARDIOVASCULAR: S1-S2 positive RESPIRATION: Breath sounds diminished in the bases. No rhonchi or crackles. No bronchial breathing. ABDOMEN: Soft, nontender . No guarding. no masses palpable. No ascites, No hepatosplenomegaly.Bowel sounds heard. LEGS: +3 pedal edema NERVOUS SYSTEM: Cranial N 2-12 grossly normal. Moves all 4 limbs. No focal deficits. No sensory deficit. No signs of cerebellar dysfucntion. Skin: no ulcer no rash - Labs CBC & Chem 7: 04/23/18 05:51 04/24/18 06:34 Labs: Abnormal Lab Results - Last 24 Hours (Table) 04/24/18 Range/Units 06:34 BUN 26 H (9-20) mg/dL Creatinine 1.97 H (0.66-1.25) mg/dL Glucose 122 H (74-99) mg/dL Microbiology - Last 24 Hours (Table) 04/19/18 22:55 Blood Culture - Preliminary Blood No Growth after 96 hours Assessment and Plan Assessment: - Rule out non-STEMI - History of A. fib - History of CAD and stent placement - C KD - CHF exacerbation - Hypertension - Hyperlipidemia Plan - Cardiology recommended continue medical management - Patient was fluid overloaded, descending on room air. He is on oxygen. He requires oxygen for home - We'll continue with Lasix today and see how he does - If he continues to do better and her renal functions continued to improve patient will probably be discharged tomorrow if cleared by cardiology and nephrology - Patient does not want to go to rehab and is adamant about it. We have to arrange for home PT and home care for him. Time with Patient: Greater than 30
--- NOTE | 2018-04-24 14:52 | P.PN ---
Subjective Progress Note Date: 04/24/18 This is a 73-year-old gentleman with history of coronary artery disease with history of prior stent placement done in [facility] in [place]. Patient also has history of paroxysmal atrial fibrillation, hyperlipidemia, hypertension, chronic kidney disease and also congestive heart failure. Patient had a recent admission to this hospital because of cellulitis. Patient was brought to the hospital yesterday because patient was complaining of some burning pain in the epigastric area. Patient took some Maalox at home with some relief. He was also given some Maalox and pain pills with relief of pain. Since last night patient has been stable without any discomfort. His first troponin is normal but second troponin went up to 0.54. His creatinine is however is in the range of 1.87. At the time of my examination patient is not having any discomfort in his EKG showed sinus rhythm with diffuse nonspecific ST-T abnormalities. Prolonged QT interval. No acute ST elevation noted. Patient had similar troponin elevation in 2017. Echocardiogram previously showed fairly preserved LV function. His proBNP is elevated to more than 3000. I'm going to continue monitoring his troponin values and get another echocardiogram. Further recommendations depend upon the clinical course. If troponin levels show a trend consistent with acute AL, patient may need further intervention. Indwelling continue with heparin, nitrates, beta blockers and diuretics as tolerated. 04/22/2018 Patient was seen and examined this morning, denies any chest pain at present. We did speak with the backup sawyer at the [facility] today who stated that she would accept the patient has a transfer, to undergo cardiac catheterization there. She also states that patient's most recent cardiac catheterization revealed distal occlusion of the LAD, small circumflex artery, RCA had diffuse disease, and medical therapy was advised at that time. The patient and family were made aware that they were accepting a transfer at the [facility], however it appears that a bed may not be available for 4 or 5 days. Because of that patient will tentatively be scheduled to undergo cardiac catheterization here tomorrow with Dr. Lobo. Blood pressure at noon today 186/86 with a heart rate in the 60s. White blood cell count 10, hemoglobin 8.8, platelet count 289. Sodium 138, potassium 3.9, BUN 33 and creatinine 2.4. We'll start the patient on a Catapres patch for more optimal blood pressure control. 04/23/2018 Patient underwent a cardiac catheterization yesterday which revealed diffuse calcification and disease involving 3 major vessels, there appears to be focal 7080% lesion involving the proximal LAD before the origin of the septal branch and diagonal branch. The rest of the LAD has moderate diffuse disease, circumflex also has intermediate disease with a 60-70% lesion in the midportion. The right coronary artery appears to be free of any significant focal lesion but has diffuse calcification and plaque. The films were reviewed with Dr. Rizzo the on-call double corner cutter, because of the diffuse nature of the disease and heavy calcification was advised at this time was to continue maximal medical therapy and follow-up with his backup sawyer [facility]. The patient was seen and examined this morning, denied any further chest pain or difficulty in breathing. His creatinine this morning 2.2, hemoglobin 8.6, denies any further chest discomfort. 04/24/2018. Patient was seen and examined this morning, feeling well overall. Creatinine down to 1.9 today. Blood pressure 138/60 with a heart rate in the 50s, 95% on 2 L of oxygen. Objective - Vital Signs Vital signs: Vital Signs Temp 96 F L 04/24/18 08:00 Pulse 56 L 04/24/18 12:00 Resp 16 04/24/18 12:00 BP 139/63 04/24/18 12:00 Pulse Ox 95 04/24/18 12:00 Intake & Output 04/23/18 04/24/18 04/24/18 18:59 06:59 18:59 Intake Total 690 480 Output Total 600 350 800 Balance 90 -350 -320 Weight 124.8 kg 124.8 kg Intake: IV 50 Intake, IV Titration 400 Amount Sodium Chloride 0.9% 1, 400 000 ml @ 0 mls/hr IV .[employer] ONE Rx#:[id number] Oral 240 480 Output: Urine 600 300 800 Post Void Residual 50 Other: Voiding Method Urinal Urinal Urinal - Exam GENERAL EXAM: Patient is alert and oriented and doesn't appear to be in any acute distress HEENT: Normocephalic. Normal reaction of pupils, equal size, normal range of extraocular motion. NECK: No masses, no nuchal rigidity. CHEST: No chest wall deformity. LUNGS: Equal air entry with bilateral wheezing noted . HEART: S1 and S2 normal with no audible mumurs or gallops. Regular rhythm, femorals equal on both sides.. ABDOMEN: No hepatosplenomegaly, normal bowel sounds, no guarding or rigidity. SKIN: No rashes CENTRAL NERVOUS SYSTEM: No focal deficits. EXTREMITIES: Both legs are wrapped, bilateral edema. Right radial site clean and dry, good distal pulse. - Labs CBC & Chem 7: 04/23/18 05:51 04/24/18 06:34 Labs: Abnormal Lab Results - Last 24 Hours (Table) 04/24/18 Range/Units 06:34 BUN 26 H (9-20) mg/dL Creatinine 1.97 H (0.66-1.25) mg/dL Glucose 122 H (74-99) mg/dL Microbiology - Last 24 Hours (Table) 04/19/18 22:55 Blood Culture - Preliminary Blood No Growth after 96 hours Assessment and Plan Plan: ASSESSMENT Acute [id number] myocardial infarction Chronic kidney disease Bilateral lower extremity edema with cellulitis Acute on chronic diastolic heart failure Hypertension Dyslipidemia Paroxysmal atrial fibrillation on long-term anticoagulation currently maintaining sinus mechanism Plan Cardiology's perspective, patient may be discharged once cleared by primary. We have made him his CD of his cardiac cath to take with him to the [facility] in [place]. A follow-up appointment will be made with his backup sawyer there. DNP note has been reviewed, I agree with a documented findings and plan of care. Patient was seen and examined.
[2018-04-24] MEDS: QUEtiapine 25 MG TAB PO SCH (20:36)
[2018-04-24] MEDS ORDERED: SODIUM FERRIC GLUCONAT-SUCROSE 125 MG in SODIUM CHLORIDE 0.9% 100 ML IVPB ONE (20:45)
--- NOTE | 2018-04-24 21:53 | PN ---
PROGRESS NOTE Patient is seen for followup for acute kidney injury on top of chronic kidney disease. Patient was admitted with weakness. Initially he received IV fluids. His serum creatinine was 2.3 on initial admission. Patient's lower extremity edema worsened, and therefore he was diuresed yesterday and he will also receive a dose of Lasix today. His weight is down. Patient denies any significant shortness of breath. He had about 950 mL of urine output. Patient was on Cozaar, which is currently on hold. Blood pressure on examination this morning was 138/60, heart rate of 56 per minute. Patient's family states that he had chills yesterday. His temperature was 99.3. He denied any new cough. EXAMINATION OF LUNGS: Bilateral breath sounds are heard. Decreased breath sounds at the bases. ABDOMEN: Soft, obese, non-tender. Examination of lower extremities shows no edema 3+ bilaterally with chronic skin changes. Bilateral extremities are wrapped. Labs show sodium 137, potassium 4.0, BUN 26, serum creatinine 1.97. Hemoglobin was 8.6 g/dL. ASSESSMENT: 1. Acute kidney injury; appears to be mainly cardiorenal. No evidence of obstructive uropathy. Post-void residual was 50 mL. The angiotensin receptor blockers are on hold and patient is being diuresed. I will repeat another dose of IV Lasix today. He can be possibly discharged by tomorrow as long as he does not have any more fever. I will also repeat another chest x-ray. Patient will need a higher dose of diuretics post discharge, and I will continue to hold off on the angiotensin receptor blockers for now. 2. Chronic kidney disease, NKF stage IV; baseline creatinine about 1.8 to 1.9 secondary to nephrosclerosis. 3. Acute coronary syndrome, maintained on IV heparin. 4. Concentric left ventricular hypertrophy with ejection fraction of 55% to 60% with severely dilated left atrium. PLAN: Repeat a second dose of Lasix this evening and repeat a chest x-ray today. If the patient does not have any more fever, we can discharge him tomorrow with increased dose of oral diuretics. Patient can continue with the Bumex, and I will add Zaroxolyn 2.5 mg every other day. Patient should follow up as outpatient in about one week's time for monitoring of his volume status and CKD. MMODL / IJN: [id number] /
[2018-04-24] MEDS: DOXAZOSIN 4 MG TAB PO SCH (23:53)
[2018-04-24] MEDS: traZODone HCL 100 MG TAB PO SCH (23:53)
[2018-04-24 23:56] VITALS: RESP 18
[2018-04-25 06:32] VITALS: TEMP 96.8
[2018-04-25] MEDS: PANTOPRAZOLE 40 MG TABLET PO SCH (06:51)
[2018-04-25] MEDS ORDERED: DARBEPOETIN ALFA 40 MCG/0.4 ML SYRINGE SQ SCH (08:30)
[2018-04-25] MEDS: ASPIRIN 81 MG PO SCH (09:22)
[2018-04-25] MEDS: RANOLAZINE 500 MG TAB.ER.12H PO SCH (09:22)
[2018-04-25] MEDS: ISOSORBIDE MONONITRATE ER 60 MG TAB.ER.24H PO SCH (09:23)
[2018-04-25] MEDS: FLUoxetine HCL 20 MG CAP PO SCH (09:23)
[2018-04-25] MEDS: ATORVASTATIN 20 MG TAB PO SCH (09:23)
[2018-04-25] MEDS: LABETALOL 100 MG TAB PO SCH (09:23)
[2018-04-25] MEDS: LORazepam 1 MG TAB PO SCH (09:23)
[2018-04-25 13:01] VITALS: BP 148/67; PULSE 68
--- NOTE | 2018-04-25 13:03 | P.PN ---
Subjective Progress Note Date: 04/25/18 This is a 73-year-old gentleman with history of coronary artery disease with history of prior stent placement done in [facility] in [place]. Patient also has history of paroxysmal atrial fibrillation, hyperlipidemia, hypertension, chronic kidney disease and also congestive heart failure. Patient had a recent admission to this hospital because of cellulitis. Patient was brought to the hospital yesterday because patient was complaining of some burning pain in the epigastric area. Patient took some Maalox at home with some relief. He was also given some Maalox and pain pills with relief of pain. Since last night patient has been stable without any discomfort. His first troponin is normal but second troponin went up to 0.54. His creatinine is however is in the range of 1.87. At the time of my examination patient is not having any discomfort in his EKG showed sinus rhythm with diffuse nonspecific ST-T abnormalities. Prolonged QT interval. No acute ST elevation noted. Patient had similar troponin elevation in 2017. Echocardiogram previously showed fairly preserved LV function. His proBNP is elevated to more than 3000. I'm going to continue monitoring his troponin values and get another echocardiogram. Further recommendations depend upon the clinical course. If troponin levels show a trend consistent with acute CA, patient may need further intervention. Indwelling continue with heparin, nitrates, beta blockers and diuretics as tolerated. 04/22/2018 Patient was seen and examined this morning, denies any chest pain at present. We did speak with the cantilever crane operator at the [facility] today who stated that she would accept the patient has a transfer, to undergo cardiac catheterization there. She also states that patient's most recent cardiac catheterization revealed distal occlusion of the LAD, small circumflex artery, RCA had diffuse disease, and medical therapy was advised at that time. The patient and family were made aware that they were accepting a transfer at the [facility], however it appears that a bed may not be available for 4 or 5 days. Because of that patient will tentatively be scheduled to undergo cardiac catheterization here tomorrow with Dr. Lobo. Blood pressure at noon today 186/86 with a heart rate in the 60s. White blood cell count 10, hemoglobin 8.8, platelet count 289. Sodium 138, potassium 3.9, BUN 33 and creatinine 2.4. We'll start the patient on a Catapres patch for more optimal blood pressure control. 04/23/2018 Patient underwent a cardiac catheterization yesterday which revealed diffuse calcification and disease involving 3 major vessels, there appears to be focal 7080% lesion involving the proximal LAD before the origin of the septal branch and diagonal branch. The rest of the LAD has moderate diffuse disease, circumflex also has intermediate disease with a 60-70% lesion in the midportion. The right coronary artery appears to be free of any significant focal lesion but has diffuse calcification and plaque. The films were reviewed with Dr. Rizzo the on-call dye weigher helper, because of the diffuse nature of the disease and heavy calcification was advised at this time was to continue maximal medical therapy and follow-up with his cantilever crane operator in the [facility]. The patient was seen and examined this morning, denied any further chest pain or difficulty in breathing. His creatinine this morning 2.2, hemoglobin 8.6, denies any further chest discomfort. 04/24/2018. Patient was seen and examined this morning, feeling well overall. Creatinine down to 1.9 today. Blood pressure 138/60 with a heart rate in the 50s, 95% on 2 L of oxygen. 04/25/2018 Patient seen and examined this morning, overall doing well. Being evaluated currently for the need for home O2. From our perspective he may be able to be discharged home, follow-up with his cantilever crane operator at the [facility], he does have a CD of his cardiac catheterization to take along with him. Objective - Vital Signs Vital signs: Vital Signs Temp 96.8 F L 04/25/18 04:00 Pulse 68 04/25/18 12:00 Resp 18 04/25/18 12:00 BP 148/67 04/25/18 12:00 Pulse Ox 94 L 04/25/18 12:00 Intake & Output 04/24/18 04/25/18 04/25/18 18:59 06:59 18:59 Intake Total 480 400 Output Total 1400 Balance -920 400 Weight 124.8 kg 124.1 kg Intake: Oral 480 400 Output: Urine 1400 Other: Voiding Method Urinal Urinal # Voids 3 - Exam GENERAL EXAM: Patient is alert and oriented and doesn't appear to be in any acute distress HEENT: Normocephalic. Normal reaction of pupils, equal size, normal range of extraocular motion. NECK: No masses, no nuchal rigidity. CHEST: No chest wall deformity. LUNGS: Equal air entry with bilateral wheezing noted . HEART: S1 and S2 normal with no audible mumurs or gallops. Regular rhythm, femorals equal on both sides.. ABDOMEN: No hepatosplenomegaly, normal bowel sounds, no guarding or rigidity. SKIN: No rashes CENTRAL NERVOUS SYSTEM: No focal deficits. EXTREMITIES: Both legs are wrapped, bilateral edema. Right radial site clean and dry, good distal pulse. - Labs CBC & Chem 7: 04/23/18 05:51 04/24/18 06:34 Labs: Microbiology - Last 24 Hours (Table) 04/19/18 22:55 Blood Culture - Preliminary Blood No Growth after 120 hours Assessment and Plan Plan: ASSESSMENT Acute [id number] myocardial infarction Chronic kidney disease Bilateral lower extremity edema with cellulitis Acute on chronic diastolic heart failure Hypertension Dyslipidemia Paroxysmal atrial fibrillation on long-term anticoagulation currently maintaining sinus mechanism Plan Cardiology's perspective, patient may be discharged once cleared by primary. We have made him his CD of his cardiac cath to take with him to the [facility] in [place]. A follow-up appointment will be made with his cantilever crane operator there. DNP note has been reviewed, I agree with a documented findings and plan of care. Patient was seen and examined.
--- NOTE | 2018-04-25 14:14 | P.PN ---
Subjective Patient is seen in follow-up for acute kidney injury on chronic kidney disease. Patient has chronic kidney disease stage IV with baseline creatinine near 1.9. GFR is near baseline. Currently sitting up in chair. Good urine output. No vomiting or diarrhea. Vital signs are stable. General: The patient appeared well nourished and normally developed. HEENT: Head exam is unremarkable. Neck is without jugular venous distension. LUNGS: Breath sounds decreased. HEART: Rate and Rhythm are regular. First and second heart sounds normal. No murmurs, rubs or gallops. ABDOMEN: Abdominal exam reveals normal bowel sounds. Non-tender and non-distend ed. No evidence of peritonitis. EXTREMITITES: 1+ edema. Objective - Vital Signs Vital signs: Vital Signs Temp 96.8 F L 04/25/18 04:00 Pulse 68 04/25/18 12:00 Resp 18 04/25/18 12:00 BP 148/67 04/25/18 12:00 Pulse Ox 94 L 04/25/18 12:00 Intake & Output 04/24/18 04/25/18 04/25/18 18:59 06:59 18:59 Intake Total 480 400 Output Total 1400 Balance -920 400 Weight 124.8 kg 124.1 kg Intake: Oral 480 400 Output: Urine 1400 Other: Voiding Method Urinal Urinal # Voids 3 - Labs CBC & Chem 7: 04/23/18 05:51 04/24/18 06:34 Labs: Microbiology - Last 24 Hours (Table) 04/19/18 22:55 Blood Culture - Preliminary Blood No Growth after 120 hours Assessment and Plan Plan: Assessment: 1. Acute kidney injury mostly prerenal secondary to cardiorenal syndrome. 2. Chronic kidney disease stage IV with baseline creatinine near 1.9 secondary to nephrosclerosis. 3. Diastolic CHF. 4. Volume overload. Improved. Plan: Plans for discharge today. He is to take Lasix 60 mg orally twice daily along with metolazone 2.5 mg 3 times a week. I advised him to monitor his weight closely at home. Repeat BMP and magnesium level on Sunday. Follow up outpatient in the next 1 week.
== END 2018-04-25 16:08 | disposition home or self-care (01) | DRG 280 ==
LOC: EC 22:24 → 1SOBS 04-20 01:32 → OBSVTOIN 04-20 12:06 → 3SCARD 04-20 14:20
PROVIDERS: ADMIT Hospitalist; ATTEND Hospitalist
PROC: B2111ZZ Fluoroscopy of Multiple Coronary Arteries using Low Osmolar Contrast (ICD-10-PCS; 2018-04-23)
PROC: 4A023N7 Measurement of Cardiac Sampling and Pressure, Left Heart, Percutaneous Approach (ICD-10-PCS; principal; 2018-04-23 10:44)
DX: I21.4 Non-ST elevation (NSTEMI) myocardial infarction (principal); I50.33 Acute on chronic diastolic (congestive) heart failure; E87.3 Alkalosis; I13.0 Hypertensive heart and chronic kidney disease with heart failure and stage 1 through stage 4 chronic kidney disease, or unspecified chronic kidney disease; N17.9 Acute kidney failure, unspecified; N18.4 Chronic kidney disease, stage 4 (severe); L03.116 Cellulitis of left lower limb; L03.115 Cellulitis of right lower limb; E87.8 Other disorders of electrolyte and fluid balance, not elsewhere classified; I48.0 Paroxysmal atrial fibrillation; D63.1 Anemia in chronic kidney disease; E66.9 Obesity, unspecified; E78.5 Hyperlipidemia, unspecified; E87.6 Hypokalemia; F32.9 Major depressive disorder, single episode, unspecified; G25.81 Restless legs syndrome; I25.10 Atherosclerotic heart disease of native coronary artery without angina pectoris; I25.2 Old myocardial infarction; R09.02 Hypoxemia; M10.9 Gout, unspecified; M19.90 Unspecified osteoarthritis, unspecified site; M47.9 Spondylosis, unspecified; F40.240 Claustrophobia; Z79.01 Long term (current) use of anticoagulants; Z79.82 Long term (current) use of aspirin; Z79.899 Other long term (current) drug therapy; Z95.5 Presence of coronary angioplasty implant and graft; Z88.8 Allergy status to other drugs, medicaments and biological substances; Z87.440 Personal history of urinary (tract) infections; Z80.3 Family history of malignant neoplasm of breast; Z82.49 Family history of ischemic heart disease and other diseases of the circulatory system
CPT/HCPCS: 36415; 71046; 76770; 80048; 80053; 82728; 83540; 83550; 83605; 83690; 83735; 83880; 84100; 84484; 85025; 85027; 85610; 85730; 87040; 93005; 93306; 93458; 96374; 99291

== ENCOUNTER 2018-06-26 20:42 | Observation (INO) | payer MEDICARE, OTHER ==
--- NOTE | 2018-06-26 21:13 | ED ---
Altered Mental Status HPI - General Chief Complaint: Altered Mental Status Stated Complaint: weakness Time Seen by Provider: 06/26/18 21:09 Source: EMS Mode of arrival: EMS - History of Present Illness Initial Comments: This patient is a 73-year-old man who presents to be evaluated for generalized numbness and fatigue. Patient states that for 2-3 days now he has been feeling more generalized weakness than is usual for him. Tonight the patient had gone to the bathroom and then had not been able to get back up, and then had slumped to the ground. The patient states she did not have a fall. There was no injury. The patient states that the last time he was like this he had a urinary tract infection and had to be admitted in the hospital for antibiotics. MD Complaint: weakness Onset/Timin -: days(s) Consistency of Symptoms: getting worse Context: recent fever Associated Symptoms: fever/chills, loss of appetite - Related Data Home Medications Medication Instructions Recorded Confirmed Aspirin 81 mg PO DAILY 07/03/13 06/26/18 FLUoxetine HCL [PROzac] 20 mg PO DAILY@1000 07/03/13 06/26/18 Terazosin [Hytrin] 8 mg PO HS@0000 12/25/13 06/26/18 LORazepam [Ativan] 1 mg PO TID@0000,1000,1700 04/27/17 06/26/18 Ranolazine [Ranexa] 1,000 mg PO BID@0800,2200 04/27/17 06/26/18 oxyCODONE HCL [Roxicodone] 5 mg PO BID PRN 04/27/17 06/26/18 traZODone HCL [Desyrel] 100 mg PO HS@0000 04/27/17 06/26/18 Atorvastatin [Lipitor] 20 mg PO DAILY 04/20/18 06/26/18 Nitroglycerin Sl Tabs [Nitrostat] 0.4 mg SUBLINGUAL Q5M PRN 04/20/18 06/26/18 Omeprazole 20 mg PO DAILY 04/20/18 06/26/18 Furosemide [Lasix] 60 mg PO BID 06/26/18 06/26/18 Gabapentin [Neurontin] 100 mg PO BID 06/26/18 06/26/18 Isosorbide Mononitrate ER [Imdur] 30 mg PO DAILY 06/26/18 06/26/18 Metolazone [Zaroxolyn] 2.5 mg PO DAILY 06/26/18 06/26/18 Potassium Chloride ER [K-Dur 10] 20 meq PO DAILY 06/26/18 06/26/18 Rivaroxaban [Xarelto] 20 mg PO DAILY 06/26/18 06/26/18 rOPINIRole HCL [Requip] 0.5 mg PO BID 06/26/18 06/26/18 Previous Rx's Medication Instructions Recorded Furosemide [Lasix] 60 mg PO BID #180 tab 04/25/18 Labetalol [Trandate] 300 mg PO BID@1000,2200 #180 tab 04/25/18 Allergies Allergy/AdvReac Type Severity Reaction Status Date / Time amlodipine AdvReac CONSTIPATIO Verified 06/26/18 21:30 N atenolol AdvReac MALE ED Verified 06/26/18 21:30 hydrochlorothiazide AdvReac RENAL Verified 06/26/18 21:30 IMPAIRMENT pravastatin AdvReac Rash/Hives Verified 06/26/18 21:30 Review of Systems ROS Statement: Those systems with pertinent positive or pertinent negative responses have been documented in the HPI. ROS Other: All systems not noted in ROS Statement are negative. Constitutional: Reports: as per HPI, fever, chills, weakness (Generalized) Eyes: Denies: vision change ENT: Denies: throat pain Respiratory: Denies: cough, dyspnea Cardiovascular: Denies: chest pain, palpitations, edema Gastrointestinal: Denies: abdominal pain, nausea, vomiting, diarrhea, melena, hematochezia Genitourinary: Denies: dysuria, hematuria Musculoskeletal: Denies: back pain Skin: Denies: rash Neurological: Denies: headache, weakness Past Medical History Past Medical History: Atrial Fibrillation, Coronary Artery Disease (CAD), Chest Pain / Angina, Heart Failure, Hyperlipidemia, Hypertension, Myocardial Infarction ([place]), Osteoarthritis (OA), Renal Disease Additional Past Medical History / Comment(s): ? 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 pt stated has slept in recliner chair for past 10 years, uti ecoli 2013. gout in past, djd, lumbar disc disease. restless leg , leg cellulitis/swelling, falls/ Last Myocardial Infarction Date:: 2009 History of Any Multi-Drug Resistant Organisms: None Reported Date of last positivie culture/infection: 04/02/2018 MDRO Source:: leg wound Past Surgical History: Heart Catheterization With Stent, Tonsillectomy Additional Past Surgical History / Comment(s): [id number] stents, rt hand sx to repair severed lig/tendons(age 20) has limited use of index finger Past Anesthesia/Blood Transfusion Reactions: No Reported Reaction Additional Past Anesthesia/Blood Transfusion Reaction / Comment(s): clausterphobia Date of Last Stent Placement:: 2009 Past Psychological History: Depression Smoking Status: Never smoker - Past Family History Mother Family Medical History: Cancer Additional Family Medical History / Comment(s): breast cancer, heart problems was on warfarin(pt stated she bled out) Father Family Medical History: Coronary Artery Disease (CAD), Myocardial Infarction ([place]) Additional Family Medical History / Comment(s): Father had his 1st FL in his 50s and then from his 2nd FL at the age of 74yrs. General Exam General appearance: alert, in no apparent distress Head exam: Present: atraumatic, normocephalic Eye exam: Present: normal appearance. Absent: scleral icterus, conjunctival injection ENT exam: Present: normal oropharynx Neck exam: Present: normal inspection, full ROM. Absent: tenderness, meningismus Respiratory exam: Present: normal lung sounds bilaterally. Absent: respiratory distress, wheezes, rales, rhonchi, stridor Cardiovascular Exam: Present: regular rate, normal rhythm, normal heart sounds. Absent: systolic murmur, diastolic murmur, rubs, gallop GI/Abdominal exam: Present: soft. Absent: distended, tenderness, guarding, rebound, rigid, mass Extremities exam: Present: normal capillary refill, other (The patient does have compression dressings to the bilateral lower extremities due to chronic venous stasis change and weeping ulcers. The dressings are clean and dry. There is no palpable warmth and no observed erythema.). Absent: pedal edema, calf tenderness Back exam: Present: normal inspection. Absent: CVA tenderness (R), CVA tenderness (L) Neurological exam: Present: alert, oriented X3, CN II-XII intact. Absent: motor sensory deficit Skin exam: Present: warm, dry, intact, normal color. Absent: rash Course Vital Signs 06/26/18 06/26/18 20:51 22:21 Temperature 99 F Pulse Rate 63 95 Respiratory 18 18 Rate Blood Pressure 156/62 152/67 O2 Sat by Pulse 95 95 Oximetry Medical Decision Making - Medical Decision Making Patient is 73-year-old man with fever and generalized weakness. His workup does show what appears to be urinary tract infection. Case discussed with admitting physician and patient started on antibiotics. IV fluid bolus based on an ideal body weight - Lab Data Result diagrams: 06/26/18 21:22 06/26/18 21:22 Lab Results 06/26/18 06/26/18 06/26/18 Range/Units 21:22 21:22 21:22 WBC 15.4 H (3.8-10.6) k/uL RBC 3.22 L (4.30-5.90) m/uL Hgb 10.0 L (13.0-17.5) gm/dL Hct 30.0 L (39.0-53.0) % MCV 93.1 D (80.0-100.0) fL MCH 31.2 (25.0-35.0) pg MCHC 33.5 (31.0-37.0) g/dL RDW 14.5 (11.5-15.5) % Plt Count 343 (150-450) k/uL Neutrophils % 88 % Lymphocytes % 3 % Monocytes % 6 % Eosinophils % 1 % Basophils % 0 % Neutrophils # 13.5 H (1.3-7.7) k/uL Lymphocytes # 0.4 L (1.0-4.8) k/uL Monocytes # 1.0 (0-1.0) k/uL Eosinophils # 0.2 (0-0.7) k/uL Basophils # 0.0 (0-0.2) k/uL PT 13.6 H (9.0-12.0) sec INR 1.3 H (<1.2) APTT 35.5 H (22.0-30.0) sec Sodium 129 L (137-145) mmol/L Potassium 3.4 L (3.5-5.1) mmol/L Chloride 88 L (98-107) mmol/L Carbon Dioxide 28 (22-30) mmol/L Anion Gap 13 mmol/L BUN 33 H (9-20) mg/dL Creatinine 2.05 H (0.66-1.25) mg/dL Est GFR (CKD-EPI)AfAm 36 (>60 ml/min/1.73 sqM) Est GFR (CKD-EPI)NonAf 32 (>60 ml/min/1.73 sqM) Glucose 120 H (74-99) mg/dL Plasma Lactic Acid Harman (0.7-2.0) mmol/L Calcium 9.1 (8.4-10.2) mg/dL Total Bilirubin 0.9 (0.2-1.3) mg/dL AST 14 L (17-59) U/L ALT 21 (21-72) U/L Alkaline Phosphatase 87 (38-126) U/L Troponin I (0.000-0.034) ng/mL Total Protein 7.2 (6.3-8.2) g/dL Albumin 4.0 (3.5-5.0) g/dL Urine Color Urine Appearance (Clear) Urine pH (5.0-8.0) Ur Specific [place] (1.001-1.035) Urine Protein (Negative) Urine Glucose (UA) (Negative) Urine Ketones (Negative) Urine Blood (Negative) Urine Nitrite (Negative) Urine Bilirubin (Negative) Urine Urobilinogen (<2.0) mg/dL Ur Leukocyte Esterase (Negative) Urine RBC (0-5) /hpf Urine WBC (0-5) /hpf Urine WBC Clumps (None) /hpf Ur Squamous Epith Cells (0-4) /hpf Urine Bacteria (None) /hpf Urine Mucus (None) /hpf Urine Opiates Screen (NotDetected) Ur Oxycodone Screen (NotDetected) Urine Methadone Screen (NotDetected) Ur Propoxyphene Screen (NotDetected) Ur Barbiturates Screen (NotDetected) U Tricyclic Antidepress (NotDetected) Ur Phencyclidine Scrn (NotDetected) Ur Amphetamines Screen (NotDetected) U Methamphetamines Scrn (NotDetected) U Benzodiazepines Scrn (NotDetected) Urine Cocaine Screen (NotDetected) U Marijuana (THC) Screen (NotDetected) 06/26/18 06/26/18 06/26/18 Range/Units 21:22 21:22 21:22 WBC (3.8-10.6) k/uL RBC (4.30-5.90) m/uL Hgb (13.0-17.5) gm/dL Hct (39.0-53.0) % MCV (80.0-100.0) fL MCH (25.0-35.0) pg MCHC (31.0-37.0) g/dL RDW (11.5-15.5) % Plt Count (150-450) k/uL Neutrophils % % Lymphocytes % % Monocytes % % Eosinophils % % Basophils % % Neutrophils # (1.3-7.7) k/uL Lymphocytes # (1.0-4.8) k/uL Monocytes # (0-1.0) k/uL Eosinophils # (0-0.7) k/uL Basophils # (0-0.2) k/uL PT (9.0-12.0) sec INR (<1.2) APTT (22.0-30.0) sec Sodium (137-145) mmol/L Potassium (3.5-5.1) mmol/L Chloride (98-107) mmol/L Carbon Dioxide (22-30) mmol/L Anion Gap mmol/L BUN (9-20) mg/dL Creatinine (0.66-1.25) mg/dL Est GFR (CKD-EPI)AfAm (>60 ml/min/1.73 sqM) Est GFR (CKD-EPI)NonAf (>60 ml/min/1.73 sqM) Glucose (74-99) mg/dL Plasma Lactic Acid Harman 1.9 (0.7-2.0) mmol/L Calcium (8.4-10.2) mg/dL Total Bilirubin (0.2-1.3) mg/dL AST (17-59) U/L ALT (21-72) U/L Alkaline Phosphatase (38-126) U/L Troponin I <0.012 (0.000-0.034) ng/mL Total Protein (6.3-8.2) g/dL Albumin (3.5-5.0) g/dL Urine Color Yellow Urine Appearance Cloudy (Clear) Urine pH 6.0 (5.0-8.0) Ur Specific [place] 1.008 (1.001-1.035) Urine Protein Negative (Negative) Urine Glucose (UA) Negative (Negative) Urine Ketones Negative (Negative) Urine Blood Negative (Negative) Urine Nitrite Negative (Negative) Urine Bilirubin Negative (Negative) Urine Urobilinogen <2.0 (<2.0) mg/dL Ur Leukocyte Esterase Large H (Negative) Urine RBC 3 (0-5) /hpf Urine WBC >182 H (0-5) /hpf Urine WBC Clumps Few H (None) /hpf Ur Squamous Epith Cells <1 (0-4) /hpf Urine Bacteria Many H (None) /hpf Urine Mucus Rare H (None) /hpf Urine Opiates Screen Not Detected (NotDetected) Ur Oxycodone Screen Detected H (NotDetected) Urine Methadone Screen Not Detected (NotDetected) Ur Propoxyphene Screen Not Detected (NotDetected) Ur Barbiturates Screen Not Detected (NotDetected) U Tricyclic Antidepress Not Detected (NotDetected) Ur Phencyclidine Scrn Not Detected (NotDetected) Ur Amphetamines Screen Not Detected (NotDetected) U Methamphetamines Scrn Not Detected (NotDetected) U Benzodiazepines Scrn Detected H (NotDetected) Urine Cocaine Screen Not Detected (NotDetected) U Marijuana (THC) Screen Not Detected (NotDetected) - EKG Data -: EKG Interpreted by Sc EKG shows normal: sinus rhythm (With frequent PVCs, rate 61 bpm), axis (Normal), intervals (MN interval 300 ms, prolonged. QRS 94 ms, normal, QTC 418 ms, normal.), QRS complexes (Normal), ST-T waves (Normal) Disposition Clinical Impression: Urinary tract infection, Leukocytosis, Hyponatremia Disposition: ADMITTED IP TO THIS [facility] Condition: Fair Referrals: None,Stated [REFERRING] - 1-2 days
[2018-06-26 21:49] LABS: Basophils % (A) 0 %; Eosinophils # (A) 0.2 k/uL (0-0.7); Eosinophils % (A) 1 %; Lymphocytes # (A) 0.4 k/uL (1.0-4.8); Lymphocytes % (A) 3 %; MCH 31.2 pg (25.0-35.0); MCHC 33.5 g/dL (31.0-37.0); Mean Platelet Volume 6.4; Monocytes % (A) 6 %; Neutrophils # (A) 13.5 k/uL (1.3-7.7); Neutrophils % (A) 88 %; Platelet Count 343 k/uL (150-450); RBC 3.22 m/uL (4.30-5.90); RDW 14.5 % (11.5-15.5); WBC 15.4 k/uL (3.8-10.6)
[2018-06-26 21:57] LABS: Appearance,Urine Cloudy (Clear); Bacteria,Urine Many /hpf; Bilirubin,Urine Negative (Negative); Blood,Urine Negative (Negative); Color,Urine Yellow; Glucose,Urine (UA) Negative (Negative); INR 1.3 (<1.2); Ketones,Urine Negative (Negative); Leukocyte Esterase,Urine Large (Negative); Mucus,Urine Rare /hpf; Nitrite,Urine Negative (Negative); Partial Thromboplastin Time 35.5 sec (22.0-30.0); Protein,Urine Negative (Negative); Prothrombin Time 13.6 sec (9.0-12.0); RBC,Urine 3 /hpf (0-5); Specific Gravity,Urine 1.008 (1.001-1.035); Squamous Epithelial Cell,Urine <1 /hpf (0-4); Urobilinogen,Urine <2.0 mg/dL (<2.0)
[2018-06-26 21:58] LABS: MCV 93.1 fL (80.0-100.0)
[2018-06-26 22:01] LABS: Amphetamine Screen,Urine Not Detected (NotDetected); Barbiturate Screen,Urine Not Detected (NotDetected); Benzodiazepines Screen,Urine Detected (NotDetected); Cocaine Screen,Urine Not Detected (NotDetected); Methadone Screen, Urine Not Detected (NotDetected); Opiate Screen,Urine Not Detected (NotDetected); Oxycodone Screen, Urine Detected (NotDetected); Phencyclidine Screen,Urine Not Detected (NotDetected); Tricyclic Antidepressant,Urine Not Detected (NotDetected); Urn Cannabinoid Scrn Not Detected (NotDetected)
--- NOTE | 2018-06-26 22:10 | XR ---
EXAM: XR Chest, 2 Views CLINICAL HISTORY: ITS.REASON XR Reason: altered mental status TECHNIQUE: Frontal and lateral views of the chest. COMPARISON: No relevant prior studies available. FINDINGS: Lungs: See below. Pleural space: Unremarkable. No pneumothorax. Heart: Fullness of the cardiac silhouette may represent cardiomegaly. Mediastinum: No other mediastinal or hilar enlargement. Trachea is grossly unremarkable. Bones/joints: Multilevel spine degenerative changes. Vasculature: Question mild vascular congestion. IMPRESSION: No pneumonia or other findings to clearly explain the clinical presentation.
[2018-06-26 22:13] LABS: Calcium 9.1 mg/dL (8.4-10.2); Potassium 3.4 mmol/L (3.5-5.1); Total Bilirubin 0.9 mg/dL (0.2-1.3); Total Protein 7.2 g/dL (6.3-8.2)
[2018-06-26] MEDS ORDERED: LEVOFLOXACIN 750MG-D5W PMX 750 MG in DEXTROSE/WATER 1 150ML.BAG IVPB STA (22:24)
[2018-06-26] MEDS ORDERED: SODIUM CHLORIDE 0.9% 2,000 ML IV ONE (22:29)
[2018-06-26] MEDS ORDERED: ACETAMINOPHEN TAB 325 MG TAB PO PRN (22:30)
[2018-06-26] MEDS ORDERED: SODIUM CHLORIDE 0.9% 1,000 ML IV SCH (22:30)
[2018-06-26] MEDS ORDERED: NALOXONE 0.4 MG/ML 1 ML VIAL IV PRN (22:30)
[2018-06-26] MEDS ORDERED: NITROGLYCERIN SL TABS 0.4 MG TAB SUBLINGUAL PRN (22:32)
[2018-06-26 23:11] VITALS: RESP 16
[2018-06-27] MEDS ORDERED: TERAZOSIN PO SCH
[2018-06-27] MEDS ORDERED: LORazepam 1 MG TAB PO PRN
[2018-06-27] MEDS ORDERED: traZODone HCL 100 MG TAB PO SCH
[2018-06-27 05:53] VITALS: BP 140/68; PULSE 60; TEMP 96.8
[2018-06-27] MEDS ORDERED: PANTOPRAZOLE 40 MG TABLET PO SCH (07:30)
[2018-06-27] MEDS ORDERED: RANOLAZINE 500 MG TAB.ER.12H PO SCH (08:00)
[2018-06-27] MEDS ORDERED: FUROSEMIDE 20 MG TAB PO SCH (09:00)
[2018-06-27] MEDS ORDERED: ISOSORBIDE MONONITRATE ER 60 MG TAB.ER.24H PO SCH (09:00)
[2018-06-27] MEDS ORDERED: ASPIRIN 81 MG PO SCH (09:00)
[2018-06-27] MEDS ORDERED: METOLAZONE 2.5 MG TAB PO SCH (09:00)
[2018-06-27] MEDS ORDERED: POTASSIUM CHLORIDE ER 10 MEQ TAB.ER.PRT PO SCH (09:00)
[2018-06-27] MEDS ORDERED: GABAPENTIN 100 MG CAP PO SCH (09:00)
[2018-06-27] MEDS ORDERED: RIVAROXABAN 20 MG TAB PO SCH (09:00)
[2018-06-27] MEDS ORDERED: ATORVASTATIN 20 MG TAB PO SCH (09:00)
[2018-06-27] MEDS ORDERED: FLUoxetine HCL 20 MG CAP PO SCH (10:00)
[2018-06-27] MEDS ORDERED: LABETALOL 100 MG TAB PO SCH (10:00)
[2018-06-27 10:03] LABS: Basophils % (A) 0 %; Eosinophils # (A) 0.2 k/uL (0-0.7); Eosinophils % (A) 2 %; HCT 28.8 % (39.0-53.0); HGB 9.6 gm/dL (13.0-17.5); Lymphocytes # (A) 0.9 k/uL (1.0-4.8); Lymphocytes % (A) 8 %; MCH 31.2 pg (25.0-35.0); MCHC 33.2 g/dL (31.0-37.0); MCV 93.9 fL (80.0-100.0); Mean Platelet Volume 6.5; Monocytes # (A) 0.8 k/uL (0-1.0); Monocytes % (A) 7 %; Neutrophils # (A) 10.3 k/uL (1.3-7.7); Neutrophils % (A) 82 %; Platelet Count 341 k/uL (150-450); RBC 3.07 m/uL (4.30-5.90); RDW 14.6 % (11.5-15.5); WBC 12.5 k/uL (3.8-10.6)
[2018-06-27 10:37] LABS: Albumin 3.7 g/dL (3.5-5.0); Potassium 3.2 mmol/L (3.5-5.1); Total Bilirubin 0.9 mg/dL (0.2-1.3); Total Protein 6.8 g/dL (6.3-8.2)
[2018-06-27] MEDS ORDERED: POTASSIUM CHLORIDE ER 20 MEQ TAB.ER PO SCH (11:00)
[2018-06-27] MEDS: POTASSIUM CHLORIDE ER 10 MEQ TAB.ER.PRT PO SCH ×2 (11:11→12:09)
--- NOTE | 2018-06-27 14:37 | P.DS ---
Providers Date of admission: 06/26/18 22:34 Attending physician: Ave Layne Primary care physician: Jerod Braun MD Hospital Course: Please refer to my HPI Patient Condition at Discharge: Fair Plan - Discharge Summary Discharge Rx Participant: No New Discharge Prescriptions: New Cefuroxime Axetil [Ceftin] 500 mg PO BID 3 Days #6 tab Continue FLUoxetine HCL [PROzac] 20 mg PO DAILY@1000 Aspirin 81 mg PO DAILY Terazosin [Hytrin] 8 mg PO HS@0000 oxyCODONE HCL [Roxicodone] 5 mg PO BID PRN PRN Reason: Pain Ranolazine [Ranexa] 1,000 mg PO BID@0800,2200 LORazepam [Ativan] 1 mg PO TID@0000,1000,1700 traZODone HCL [Desyrel] 100 mg PO HS@0000 Omeprazole 20 mg PO DAILY Nitroglycerin Sl Tabs [Nitrostat] 0.4 mg SUBLINGUAL Q5M PRN PRN Reason: Chest Pain Atorvastatin [Lipitor] 20 mg PO DAILY Furosemide [Lasix] 60 mg PO BID #180 tab Labetalol [Trandate] 300 mg PO BID@1000,2200 #180 tab rOPINIRole HCL [Requip] 0.5 mg PO BID Rivaroxaban [Xarelto] 20 mg PO DAILY Furosemide [Lasix] 60 mg PO BID Isosorbide Mononitrate ER [Imdur] 30 mg PO DAILY Gabapentin [Neurontin] 100 mg PO BID Metolazone [Zaroxolyn] 2.5 mg PO DAILY Changed Potassium Chloride ER [K-Dur 10] 20 meq PO BID #0 Discharge Medication List Aspirin 81 mg PO DAILY 07/03/13 [History] FLUoxetine HCL [PROzac] 20 mg PO DAILY@1000 07/03/13 [History] Terazosin [Hytrin] 8 mg PO HS@0000 12/25/13 [History] LORazepam [Ativan] 1 mg PO TID@0000,1000,1700 04/27/17 [History] Ranolazine [Ranexa] 1,000 mg PO BID@0800,2200 04/27/17 [History] oxyCODONE HCL [Roxicodone] 5 mg PO BID PRN 04/27/17 [History] traZODone HCL [Desyrel] 100 mg PO HS@0000 04/27/17 [History] Atorvastatin [Lipitor] 20 mg PO DAILY 04/20/18 [History] Nitroglycerin Sl Tabs [Nitrostat] 0.4 mg SUBLINGUAL Q5M PRN 04/20/18 [History] Omeprazole 20 mg PO DAILY 04/20/18 [History] Furosemide [Lasix] 60 mg PO BID #180 tab 04/25/18 [Rx] Labetalol [Trandate] 300 mg PO BID@1000,2200 #180 tab 04/25/18 [Rx] Furosemide [Lasix] 60 mg PO BID 06/26/18 [History] Gabapentin [Neurontin] 100 mg PO BID 06/26/18 [History] Isosorbide Mononitrate ER [Imdur] 30 mg PO DAILY 06/26/18 [History] Metolazone [Zaroxolyn] 2.5 mg PO DAILY 06/26/18 [History] Rivaroxaban [Xarelto] 20 mg PO DAILY 06/26/18 [History] rOPINIRole HCL [Requip] 0.5 mg PO BID 06/26/18 [History] Cefuroxime Axetil [Ceftin] 500 mg PO BID 3 Days #6 tab 06/27/18 [Rx] Potassium Chloride ER [K-Dur 10] 20 meq PO BID #0 06/27/18 [Rx] Follow up Appointment(s)/Referral(s): None,Stated [REFERRING] - 1-2 days Patient Instructions/Handouts: Urinary Tract Infection in Men (DC) Activity/Diet/Wound Care/Special Instructions: [facility] if you do not hear from home health care with in 3 days. Discharge Disposition: HOME WITH HOME HEALTH SERVICES
--- NOTE | 2018-06-27 14:37 | P.HPIM ---
History of Present Illness 71-year-old pleasant gentleman came in with complaints of back pain tingling numbness in the back which completely resolved at this point of time patient had moderate amount of pain yesterday and generalized weakness. Patient doesn't have any weakness on exam and doesn't have anything Tingling and numbness at this time. Patient is requesting to go home. Patient was subsequently tested for urinary tract infection in ER found to have normal urine because of which patient was admitted for possible urinary tract infection although patient denies any UTI-like symptoms dysuria suprapubic pain patient denied any fever. Does have leukocytosis significantly abnormal urine with greater than 182 white blood cell counts. Patient is also bit hyponatremic secondary to diuretic therapy. Hypokalemic from diuretic therapy which is improving at this time patient does have history of chronic kidney disease creatinine at his baseline patient appears to have cardiorenal syndrome, chronic diastolic dysfunction atrial fibrillation had a recent cardiac catheterization and stent placement continues to have some significant coronary vascular occlusions. Does have chronic venous stasis dermatosis of both legs with redness in both legs patient does have Dylan bandages doesn't have any wounds in that area. Patient is also on anticoagulation at this time for her atrial fibrillation. Patient probably does need to stay in the hospital but need to closely follow with primary care patient bow maker custom as an outpatient. As patient is at is insisting on discharge and good and discharge the patient on empiric antibiotics Ceftin for 3 days for possibility of urinary tract infection although not completely convinced that he has UTI considering that the he doesn't have any symptoms but does have leukocytosis and significantly abnormal urine. Review of Systems REVIEW OF SYSTEMS: CONSTITUTIONAL: No fever, no malaise, no fatigue. HEENT: No recent visual problems or hearing problems. Denied any sore throat. CARDIOVASCULAR: No chest pain, orthopnea, PND, no palpitations, no syncope. PULMONARY: No shortness of breath, no cough, no hemoptysis. GASTROINTESTINAL: No diarrhea, no nausea, no vomiting, no abdominal pain. NEUROLOGICAL: No headaches, no weakness, no numbness. HEMATOLOGICAL: Denies any bleeding or petechiae. GENITOURINARY: Denies any burning micturition, frequency, or urgency. MUSCULOSKELETAL/RHEUMATOLOGICAL: As mentioned in HPI ENDOCRINE: Denies any polyuria or polydipsia. The rest of the 14-point review of systems is negative. Past Medical History Past Medical History: Atrial Fibrillation, Coronary Artery Disease (CAD), Chest Pain / Angina, Heart Failure, Hyperlipidemia, Hypertension, Myocardial Infarction (RI), Osteoarthritis (OA), Renal Disease Additional Past Medical History / Comment(s): ? 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 pt stated has slept in recliner vladislav for past 10 years, uti ecoli 2013. gout in past, djd, lumbar disc disease. restless leg , leg cellulitis/swelling, falls/ Last Myocardial Infarction Date:: 2009 History of Any Multi-Drug Resistant Organisms: None Reported Date of last positivie culture/infection: 04/02/2018 MDRO Source:: leg wound Past Surgical History: Heart Catheterization With Stent, Tonsillectomy Additional Past Surgical History / Comment(s): [id number] stents, rt hand sx to repair severed lig/tendons(age 20) has limited use of index finger Past Anesthesia/Blood Transfusion Reactions: No Reported Reaction Additional Past Anesthesia/Blood Transfusion Reaction / Comment(s): clausterphobia Date of Last Stent Placement:: 2009 Past Psychological History: Depression Additional Psychological History / Comment(s): PT RESIDES WITH HIS SPOUSE. PT SERVED IN THE [employer] WHEN YOUNGER ([employer]) AND AFTERWARDS WORKED FOR [employer]. HE USES A WHEELCHAIR PRN. HE DRIVES. HE SLEEPS IN A RECLINER. Smoking Status: Never smoker Past Alcohol Use History: None Reported Additional Past Alcohol Use History / Comment(s): Patient is a lifelong nonsmoker. He denies any marijuana or illicit drug use. He denies any alcohol use. He lives at home with his in their cats in the home. 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 He has been on disability and served in [employer] for 2 years in the [employer] for 7 years. Past Drug Use History: None Reported - Past Family History Mother Family Medical History: Cancer Additional Family Medical History / Comment(s): breast cancer, heart problems was on warfarin(pt stated she bled out) Father Family Medical History: Coronary Artery Disease (CAD), Myocardial Infarction (RI ) Additional Family Medical History / Comment(s): Father had his 1st RI in his 50s and then from his 2nd RI at the age of 74yrs. Medications and Allergies Home Medications Medication Instructions Recorded Confirmed Type Aspirin 81 mg PO DAILY 07/03/13 06/26/18 History FLUoxetine HCL [PROzac] 20 mg PO DAILY@1000 07/03/13 06/26/18 History Terazosin [Hytrin] 8 mg PO HS@0000 12/25/13 06/26/18 History LORazepam [Ativan] 1 mg PO TID@0000,1000,1700 04/27/17 06/26/18 History Ranolazine [Ranexa] 1,000 mg PO BID@0800,2200 04/27/17 06/26/18 History oxyCODONE HCL [Roxicodone] 5 mg PO BID PRN 04/27/17 06/26/18 History traZODone HCL [Desyrel] 100 mg PO HS@0000 04/27/17 06/26/18 History Atorvastatin [Lipitor] 20 mg PO DAILY 04/20/18 06/26/18 History Nitroglycerin Sl Tabs [Nitrostat] 0.4 mg SUBLINGUAL Q5M PRN 04/20/18 06/26/18 History Omeprazole 20 mg PO DAILY 04/20/18 06/26/18 History Furosemide [Lasix] 60 mg PO BID #180 tab 04/25/18 06/26/18 Rx Labetalol [Trandate] 300 mg PO BID@1000,2200 #180 tab 04/25/18 06/26/18 Rx Furosemide [Lasix] 60 mg PO BID 06/26/18 06/26/18 History Gabapentin [Neurontin] 100 mg PO BID 06/26/18 06/26/18 History Isosorbide Mononitrate ER [Imdur] 30 mg PO DAILY 06/26/18 06/26/18 History Metolazone [Zaroxolyn] 2.5 mg PO DAILY 06/26/18 06/26/18 History Rivaroxaban [Xarelto] 20 mg PO DAILY 06/26/18 06/26/18 History rOPINIRole HCL [Requip] 0.5 mg PO BID 06/26/18 06/26/18 History Cefuroxime Axetil [Ceftin] 500 mg PO BID 3 Days #6 tab 06/27/18 Rx Potassium Chloride ER [K-Dur 10] 20 meq PO BID #0 06/27/18 06/26/18 Rx Allergies Allergy/AdvReac Type Severity Reaction Status Date / Time amlodipine AdvReac CONSTIPATIO Verified 06/26/18 21:30 N atenolol AdvReac MALE ED Verified 06/26/18 21:30 hydrochlorothiazide AdvReac RENAL Verified 06/26/18 21:30 IMPAIRMENT pravastatin AdvReac Rash/Hives Verified 06/26/18 21:30 Physical Exam Vitals: Vital Signs Temp Pulse Pulse Resp BP BP Pulse Ox 06/27/18 05:50 96.8 F L 60 16 140/68 95 06/27/18 00:30 98.8 F 75 16 139/51 96 06/26/18 23:10 99 F 66 16 141/49 96 06/26/18 22:21 95 18 152/67 95 06/26/18 20:51 99 F 63 18 156/62 95 Intake and Output 06/26/18 06/27/18 06/27/18 22:59 06:59 14:59 Intake Total 680 Balance 680 Intake: IV 160 Sodium Chloride 0.9% 1, 160 000 ml @ 20 mls/hr IV . Q24H [facility] Rx#:[id number] Oral 520 Other: Voiding Method Urinal Weight 129.274 kg PHYSICAL EXAMINATION: GENERAL: The patient is alert and oriented x3, not in any acute distress. Obese HEENT: Pupils are round and equally reacting to light. EOMI. No scleral icterus. No conjunctival pallor. Normocephalic, atraumatic. No pharyngeal erythema. No thyromegaly. CARDIOVASCULAR: S1 and S2 present. No murmurs, rubs, or gallops. PULMONARY: Chest is clear to auscultation, no wheezing or crackles. ABDOMEN: Soft, nontender, nondistended, normoactive bowel sounds. No palpable organomegaly. MUSCULOSKELETAL: No joint swelling or deformity. EXTREMITIES: Bilateral leg edema with the redness and lower local is of temperature. NEUROLOGICAL: Gross neurological examination did not reveal any focal deficits. SKIN: No rashes. Results CBC & Chem 7: 06/27/18 08:58 06/27/18 08:58 Labs: Abnormal Lab Results - Last 24 Hours (Table) 06/26/18 06/26/18 06/26/18 Range/Units 21:22 21:22 21:22 WBC 15.4 H (3.8-10.6) k/uL RBC 3.22 L (4.30-5.90) m/uL Hgb 10.0 L (13.0-17.5) gm/dL Hct 30.0 L (39.0-53.0) % Neutrophils # 13.5 H (1.3-7.7) k/uL Lymphocytes # 0.4 L (1.0-4.8) k/uL PT 13.6 H (9.0-12.0) sec INR 1.3 H (<1.2) APTT 35.5 H (22.0-30.0) sec Sodium 129 L (137-145) mmol/L Potassium 3.4 L (3.5-5.1) mmol/L Chloride 88 L (98-107) mmol/L BUN 33 H (9-20) mg/dL Creatinine 2.05 H (0.66-1.25) mg/dL Glucose 120 H (74-99) mg/dL AST 14 L (17-59) U/L ALT (21-72) U/L Ur Leukocyte Esterase (Negative) Urine WBC (0-5) /hpf Urine WBC Clumps (None) /hpf Urine Bacteria (None) /hpf Urine Mucus (None) /hpf Ur Oxycodone Screen (NotDetected) U Benzodiazepines Scrn (NotDetected) 06/26/18 06/27/18 06/27/18 Range/Units 21:22 08:58 08:58 WBC 12.5 H (3.8-10.6) k/uL RBC 3.07 L (4.30-5.90) m/uL Hgb 9.6 L (13.0-17.5) gm/dL Hct 28.8 L (39.0-53.0) % Neutrophils # 10.3 H (1.3-7.7) k/uL Lymphocytes # 0.9 L (1.0-4.8) k/uL PT (9.0-12.0) sec INR (<1.2) APTT (22.0-30.0) sec Sodium 132 L (137-145) mmol/L Potassium 3.2 L (3.5-5.1) mmol/L Chloride 91 L (98-107) mmol/L BUN 33 H (9-20) mg/dL Creatinine 1.96 H (0.66-1.25) mg/dL Glucose 128 H (74-99) mg/dL AST 14 L (17-59) U/L ALT 18 L (21-72) U/L Ur Leukocyte Esterase Large H (Negative) Urine WBC >182 H (0-5) /hpf Urine WBC Clumps Few H (None) /hpf Urine Bacteria Many H (None) /hpf Urine Mucus Rare H (None) /hpf Ur Oxycodone Screen Detected H (NotDetected) U Benzodiazepines Scrn Detected H (NotDetected) Microbiology - Last 24 Hours (Table) 06/26/18 21:22 Urine Culture - Preliminary Urine,Voided Thrombosis Risk Factor Assmnt - Choose All That Apply Any of the Below Risk Factors Present?: Yes Each Factor Represents 1 point: Obesity (BMI >25), Swollen legs (current) Other Risk Factors: Yes Each Risk Factor Represents 2 Points: Age 61-74 years Other congenital or acquired thrombophilia - If yes, enter type in comment: No Thrombosis Risk Factor Assessment Total Risk Factor Score: 4 Thrombosis Risk Factor Assessment Level: Moderate Risk Assessment and Plan Plan: -Chronic low back pain with the radiculopathy: Pain improved now patient will benefit from physical therapy and loss of weight testing his age loss of weight is probably not a reasonable expectation -Congestive heart failure did not know his ejection fraction appears to have chronic diastolic dysfunction patient is anemic at this time -Possibility of urinary tract infection cannot be completely ruled out patient will be discharged on 3 days of Ceftin -Chronic kidney disease stage III appears to be secondary to cardiorenal syndrome -Atrial fibrillation paroxysmal on anticoagulation which will be continued patient is presently rate controlled -Hyperlipidemia -Coronary artery disease with residual significant multivessel disease which is around 60-70% range. Continue with the medical therapy including Imdur, statin and antiplatelet therapy -Hypertension -Degenerative disc disease and multi-joint degenerative arthritis. -Depression -Hypokalemia secondary to diuretic therapy will increase the dose of potassium -Hyponatremia which improved without any changing in his diuretic therapy because of which are good and continue the same diuretic therapy but need to closely followed nephrology and cardiology as an outpatient along with PCP.
[2018-06-28] MEDS ORDERED: LEVOFLOXACIN 750MG-D5W PMX 750 MG in DEXTROSE/WATER 1 150ML.BAG IVPB SCH (21:00)
== END 2018-06-27 14:14 | disposition home health service (06) ==
LOC: EC 20:42 → 4MS4W 22:34
PROVIDERS: ADMIT Hospitalist; ATTEND Hospitalist
DX: M54.16 Radiculopathy, lumbar region (principal); I13.0 Hypertensive heart and chronic kidney disease with heart failure and stage 1 through stage 4 chronic kidney disease, or unspecified chronic kidney disease; N18.3 Chronic kidney disease, stage 3 (moderate); E87.1 Hypo-osmolality and hyponatremia; I50.9 Heart failure, unspecified; I25.10 Atherosclerotic heart disease of native coronary artery without angina pectoris; I48.0 Paroxysmal atrial fibrillation; M10.9 Gout, unspecified; F32.9 Major depressive disorder, single episode, unspecified; E87.6 Hypokalemia; E66.9 Obesity, unspecified; Z68.41 Body mass index [BMI] 40.0-44.9, adult; T50.2X5A Adverse effect of carbonic-anhydrase inhibitors, benzothiadiazides and other diuretics, initial encounter; M15.9 Polyosteoarthritis, unspecified; E78.5 Hyperlipidemia, unspecified; G25.81 Restless legs syndrome; I25.2 Old myocardial infarction; Z87.440 Personal history of urinary (tract) infections; R29.6 Repeated falls; I87.8 Other specified disorders of veins; Z71.3 Dietary counseling and surveillance; L98.9 Disorder of the skin and subcutaneous tissue, unspecified; Z79.01 Long term (current) use of anticoagulants; Z79.82 Long term (current) use of aspirin; Z79.899 Other long term (current) drug therapy; Z80.3 Family history of malignant neoplasm of breast; Z82.49 Family history of ischemic heart disease and other diseases of the circulatory system
CPT/HCPCS: 96361; 96365; 99285; 36415; 93005; 80053 ×2; 83605; 84484; 85025 ×2; 85610; 85730; 81001; 87040; 80306; 87086; 71046; G0378 ×2; J1956

== ENCOUNTER 2018-08-27 15:20 | Emergency (ER) | payer OTHER ==
[2018-08-27 15:26] VITALS: BP 173/82; PULSE 72; RESP 18; TEMP 98.6
[2018-08-27] MEDS ORDERED: LIDOCAINE 5% PATCH TOPICAL STA (15:40)
[2018-08-27] MEDS ORDERED: valACYclovir HCL 1,000 MG TABLET PO STA (15:44)
--- NOTE | 2018-08-27 15:44 | ED ---
Skin/Abscess/FB HPI - General Chief complaint: Skin/Abscess/Foreign Body Stated complaint: Shingles Time Seen by Provider: 08/27/18 15:27 Source: patient, RN notes reviewed Mode of arrival: wheelchair Limitations: no limitations - History of Present Illness Initial comments: 73-year-old male presents emergency department for skin rash. Patient believes is shingles. Patient states that this started a few days ago and is underneath his right chest wall region and radiates to his back. Patient states it's very painful that he's been taking more oxycodone. Patient states that the oxycodone is not helping. Patient states her blistering noted to the area. Patient offers no other complaints. - Related Data Home Medications Medication Instructions Recorded Confirmed Aspirin 81 mg PO DAILY 07/03/13 06/26/18 FLUoxetine HCL [PROzac] 20 mg PO DAILY@1000 07/03/13 06/26/18 Terazosin [Hytrin] 8 mg PO HS@0000 12/25/13 06/26/18 LORazepam [Ativan] 1 mg PO TID@0000,1000,1700 04/27/17 06/26/18 Ranolazine [Ranexa] 1,000 mg PO BID@0800,2200 04/27/17 06/26/18 oxyCODONE HCL [Roxicodone] 5 mg PO BID PRN 04/27/17 06/26/18 traZODone HCL [Desyrel] 100 mg PO HS@0000 04/27/17 06/26/18 Atorvastatin [Lipitor] 20 mg PO DAILY 04/20/18 06/26/18 Nitroglycerin Sl Tabs [Nitrostat] 0.4 mg SUBLINGUAL Q5M PRN 04/20/18 06/26/18 Omeprazole 20 mg PO DAILY 04/20/18 06/26/18 Furosemide [Lasix] 60 mg PO BID 06/26/18 06/26/18 Gabapentin [Neurontin] 100 mg PO BID 06/26/18 06/26/18 Isosorbide Mononitrate ER [Imdur] 30 mg PO DAILY 06/26/18 06/26/18 Metolazone [Zaroxolyn] 2.5 mg PO DAILY 06/26/18 06/26/18 Rivaroxaban [Xarelto] 20 mg PO DAILY 06/26/18 06/26/18 rOPINIRole HCL [Requip] 0.5 mg PO BID 06/26/18 06/26/18 Previous Rx's Medication Instructions Recorded Furosemide [Lasix] 60 mg PO BID #180 tab 04/25/18 Labetalol [Trandate] 300 mg PO BID@1000,2200 #180 tab 04/25/18 Cefuroxime Axetil [Ceftin] 500 mg PO BID 3 Days #6 tab 06/27/18 Potassium Chloride ER [K-Dur 10] 20 meq PO BID #0 06/27/18 Lidocaine 5% Patch [Lidoderm 5% 1 patch TOPICAL DAILY #14 patch 08/27/18 Patch] valACYclovir HCL [Valtrex] 1,000 mg PO Q8HR #30 tab 08/27/18 Allergies Allergy/AdvReac Type Severity Reaction Status Date / Time amlodipine AdvReac CONSTIPATIO Verified 08/27/18 15:26 N atenolol AdvReac MALE ED Verified 08/27/18 15:26 hydrochlorothiazide AdvReac RENAL Verified 08/27/18 15:26 IMPAIRMENT pravastatin AdvReac Rash/Hives Verified 08/27/18 15:26 Review of Systems ROS Statement: Those systems with pertinent positive or pertinent negative responses have been documented in the HPI. ROS Other: All systems not noted in ROS Statement are negative. Past Medical History Past Medical History: Atrial Fibrillation, Coronary Artery Disease (CAD), Chest Pain / Angina, Heart Failure, Hyperlipidemia, Hypertension, Myocardial Infarction (MD), Osteoarthritis (OA), Renal Disease Additional Past Medical History / Comment(s): ? 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 pt stated has slept in recliner chair for past 10 years, uti ecoli 2013. gout in past, djd, lumbar disc disease. restless leg , leg cellulitis/swelling, falls/ Last Myocardial Infarction Date:: 2009 History of Any Multi-Drug Resistant Organisms: None Reported Date of last positivie culture/infection: 04/02/2018 MDRO Source:: leg wound Past Surgical History: Heart Catheterization With Stent, Tonsillectomy Additional Past Surgical History / Comment(s): [id number] stents, rt hand sx to repair severed lig/tendons(age 20) has limited use of index finger Past Anesthesia/Blood Transfusion Reactions: No Reported Reaction Additional Past Anesthesia/Blood Transfusion Reaction / Comment(s): clausterphobia Date of Last Stent Placement:: 2009 Past Psychological History: Depression Smoking Status: Never smoker Past Alcohol Use History: None Reported Past Drug Use History: None Reported - Past Family History Mother Family Medical History: Cancer Additional Family Medical History / Comment(s): breast cancer, heart problems was on warfarin(pt stated she bled out) Father Family Medical History: Coronary Artery Disease (CAD), Myocardial Infarction (MD) Additional Family Medical History / Comment(s): Father had his 1st MD in his 50s and then from his 2nd MD at the age of 74yrs. General Exam General appearance: alert, in no apparent distress Head exam: Present: atraumatic, normocephalic, normal inspection Eye exam: Present: normal appearance, PERRL, EOMI. Absent: scleral icterus, conjunctival injection, periorbital swelling Respiratory exam: Present: normal lung sounds bilaterally. Absent: respiratory distress, wheezes, rales, rhonchi, stridor Cardiovascular Exam: Present: regular rate, normal rhythm, normal heart sounds. Absent: systolic murmur, diastolic murmur, rubs, gallop, clicks Neurological exam: Present: alert, oriented X3, CN II-XII intact Skin exam: Present: warm, dry, intact, normal color, rash (Erythematous vesicular papular rash noted on the right anterior lateral chest wall) Course Vital Signs 08/27/18 15:22 Temperature 98.6 F Pulse Rate 72 Respiratory 18 Rate Blood Pressure 173/82 O2 Sat by Pulse 98 Oximetry Medical Decision Making - Medical Decision Making 73-year-old male presented for rash. This is consistent with herpes zoster. Patient will continue his knee meds will be started on Valtrex, will be given Lidoderm patches. Patient advised to follow-up PCP or pain is unbearable for possible Lyrica versus gabapentin. Disposition Clinical Impression: Herpes zoster Disposition: HOME SELF-CARE Condition: Stable Instructions (If sedation given, give patient instructions): Shingles (ED) Additional Instructions: Please return to the Emergency Department if symptoms worsen or any other concerns. Prescriptions: Lidocaine 5% Patch [Lidoderm 5% Patch] 1 patch TOPICAL DAILY #14 patch valACYclovir HCL [Valtrex] 1,000 mg PO Q8HR #30 tab Is patient prescribed a controlled substance at d/c from ED?: No Referrals: Jerod Braun MD [Primary Care Provider] - 1-2 days Time of Disposition: 15:44
== END 2018-08-27 16:17 | disposition home or self-care (01) ==
LOC: EC 15:20
DX: B02.9 Zoster without complications (principal); I48.91 Unspecified atrial fibrillation; I25.10 Atherosclerotic heart disease of native coronary artery without angina pectoris; I11.0 Hypertensive heart disease with heart failure; I50.9 Heart failure, unspecified; E78.5 Hyperlipidemia, unspecified; I25.2 Old myocardial infarction; G25.81 Restless legs syndrome; F32.9 Major depressive disorder, single episode, unspecified; Z95.5 Presence of coronary angioplasty implant and graft; Z79.82 Long term (current) use of aspirin; Z79.01 Long term (current) use of anticoagulants; Z79.899 Other long term (current) drug therapy; Z88.8 Allergy status to other drugs, medicaments and biological substances
CPT/HCPCS: 99282

== ENCOUNTER 2018-11-16 21:54 | Emergency (ER) | payer OTHER ==
[2018-11-16 22:01] VITALS: BP 139/59; PULSE 58; RESP 18; TEMP 98.2
[2018-11-16] MEDS ORDERED: LORazepam 1 MG TAB PO STA (22:21)
--- NOTE | 2018-11-16 22:23 | ED ---
Recheck HPI - General Chief Complaint: Recheck/Abnormal Lab/Rx Stated Complaint: Needs meds Time Seen by Provider: 11/16/18 22:04 Source: patient, family Mode of arrival: wheelchair Limitations: no limitations - History of Present Illness Initial Comments: This patient is a 73-year-old man who presents with complaint that he has just run out of his prescription lorazepam. The patient states he has been a long- standing user this medication and starting to feel very anxious and feels like he can't sleep tonight. The patient had gone to pick of his new prescription from the [facility], and they discovered that her prescription had not been signed and therefore not be filled. They're requesting small prescription so they can go through the weekend without significant withdrawal and they will obtain a refill from his primary physician. Patient denies new symptoms. MD Complaint: medication refill request Onset/Timin -: days(s) Returns Today for: request for prescription Symptoms Since Prior Visit: no new symptoms - Related Data Home Medications Medication Instructions Recorded Confirmed Aspirin 81 mg PO DAILY 07/03/13 06/26/18 FLUoxetine HCL [PROzac] 20 mg PO DAILY@1000 07/03/13 06/26/18 Terazosin [Hytrin] 8 mg PO HS@0000 12/25/13 06/26/18 LORazepam [Ativan] 1 mg PO TID@0000,1000,1700 04/27/17 06/26/18 Ranolazine [Ranexa] 1,000 mg PO BID@0800,2200 04/27/17 06/26/18 oxyCODONE HCL [Roxicodone] 5 mg PO BID PRN 04/27/17 06/26/18 traZODone HCL [Desyrel] 100 mg PO HS@0000 04/27/17 06/26/18 Atorvastatin [Lipitor] 20 mg PO DAILY 04/20/18 06/26/18 Nitroglycerin Sl Tabs [Nitrostat] 0.4 mg SUBLINGUAL Q5M PRN 04/20/18 06/26/18 Omeprazole 20 mg PO DAILY 04/20/18 06/26/18 Furosemide [Lasix] 60 mg PO BID 06/26/18 06/26/18 Gabapentin [Neurontin] 100 mg PO BID 06/26/18 06/26/18 Isosorbide Mononitrate ER [Imdur] 30 mg PO DAILY 06/26/18 06/26/18 Metolazone [Zaroxolyn] 2.5 mg PO DAILY 06/26/18 06/26/18 Rivaroxaban [Xarelto] 20 mg PO DAILY 06/26/18 06/26/18 rOPINIRole HCL [Requip] 0.5 mg PO BID 06/26/18 06/26/18 Previous Rx's Medication Instructions Recorded Furosemide [Lasix] 60 mg PO BID #180 tab 04/25/18 Labetalol [Trandate] 300 mg PO BID@1000,2200 #180 tab 04/25/18 Cefuroxime Axetil [Ceftin] 500 mg PO BID 3 Days #6 tab 06/27/18 Potassium Chloride ER [K-Dur 10] 20 meq PO BID #0 06/27/18 Lidocaine 5% Patch [Lidoderm 5% 1 patch TOPICAL DAILY #14 patch 08/27/18 Patch] valACYclovir HCL [Valtrex] 1,000 mg PO Q8HR #30 tab 08/27/18 LORazepam [Ativan] 1 mg PO TID 3 Days #9 tab 11/16/18 Allergies Allergy/AdvReac Type Severity Reaction Status Date / Time amlodipine AdvReac CONSTIPATIO Verified 11/16/18 22:22 N atenolol AdvReac MALE ED Verified 11/16/18 22:22 hydrochlorothiazide AdvReac RENAL Verified 11/16/18 22:22 IMPAIRMENT pravastatin AdvReac Rash/Hives Verified 11/16/18 22:22 Review of Systems ROS Statement: Those systems with pertinent positive or pertinent negative responses have been documented in the HPI. ROS Other: All systems not noted in ROS Statement are negative. Constitutional: Denies: fever Respiratory: Denies: cough, dyspnea Cardiovascular: Denies: chest pain, palpitations Gastrointestinal: Denies: abdominal pain, vomiting Psychiatric: Reports: anxiety. Denies: depression, homicidal thoughts, suicidal thoughts Past Medical History Past Medical History: Atrial Fibrillation, Coronary Artery Disease (CAD), Chest Pain / Angina, Heart Failure, Hyperlipidemia, Hypertension, Myocardial Infarction ([place]), Osteoarthritis (OA), Renal Disease Additional Past Medical History / Comment(s): ? 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 pt stated has slept in recliner chair for past 10 years, uti ecoli 2013. gout in past, djd, lumbar disc disease. restless leg , leg cellulitis/swelling, falls/ Last Myocardial Infarction Date:: 2009 History of Any Multi-Drug Resistant Organisms: None Reported Date of last positivie culture/infection: 04/02/2018 MDRO Source:: leg wound Past Surgical History: Heart Catheterization With Stent, Tonsillectomy Additional Past Surgical History / Comment(s): [id number] stents, rt hand sx to repair severed lig/tendons(age 20) has limited use of index finger Past Anesthesia/Blood Transfusion Reactions: No Reported Reaction Additional Past Anesthesia/Blood Transfusion Reaction / Comment(s): clausterphobia Date of Last Stent Placement:: 2009 Past Psychological History: Depression Smoking Status: Never smoker Past Alcohol Use History: None Reported Past Drug Use History: None Reported - Past Family History Mother Family Medical History: Cancer Additional Family Medical History / Comment(s): breast cancer, heart problems was on warfarin(pt stated she bled out) Father Family Medical History: Coronary Artery Disease (CAD), Myocardial Infarction (NE) Additional Family Medical History / Comment(s): Father had his 1st NE in his 50s and then from his 2nd NE at the age of 74yrs. General Exam Limitations: no limitations General appearance: alert, in no apparent distress Head exam: Present: atraumatic, normocephalic Respiratory exam: Present: normal lung sounds bilaterally. Absent: respiratory distress, wheezes, rales, rhonchi, stridor Cardiovascular Exam: Present: regular rate, normal rhythm, normal heart sounds. Absent: systolic murmur, diastolic murmur, rubs, gallop Neurological exam: Present: alert, oriented X3 Psychiatric exam: Present: normal affect, normal mood. Absent: agitated, anxious, homicidal ideation, suicidal ideation Course Vital Signs 11/16/18 21:57 Temperature 98.2 F Pulse Rate 58 L Respiratory 18 Rate Blood Pressure 139/59 O2 Sat by Pulse 98 Oximetry Disposition Clinical Impression: Encounter for medication refill Disposition: HOME SELF-CARE Condition: Good Prescriptions: LORazepam [Ativan] 1 mg PO TID 3 Days #9 tab Is patient prescribed a controlled substance at d/c from ED?: Yes When asked, does pt state using other controlled substances?: Yes If prescribed controlled substance>3 days was MAPS reviewed?: Prescribed <3 Days Referrals: Jerod Braun MD [Primary Care Provider] - 1-2 days
== END 2018-11-16 22:51 | disposition home or self-care (01) ==
LOC: EC 21:54
DX: Z76.0 Encounter for issue of repeat prescription (principal); I48.91 Unspecified atrial fibrillation; I25.10 Atherosclerotic heart disease of native coronary artery without angina pectoris; I11.0 Hypertensive heart disease with heart failure; I50.9 Heart failure, unspecified; E78.5 Hyperlipidemia, unspecified; I25.2 Old myocardial infarction; M19.90 Unspecified osteoarthritis, unspecified site; G25.81 Restless legs syndrome; F32.9 Major depressive disorder, single episode, unspecified; Z95.5 Presence of coronary angioplasty implant and graft; Z79.82 Long term (current) use of aspirin; Z79.01 Long term (current) use of anticoagulants; Z79.891 Long term (current) use of opiate analgesic; Z79.899 Other long term (current) drug therapy; Z88.8 Allergy status to other drugs, medicaments and biological substances
CPT/HCPCS: 99281

== ENCOUNTER 2019-05-07 13:45 | Inpatient (IN) | payer OTHER, MEDICARE ==
--- NOTE | 2019-05-07 14:24 | ED ---
General Adult HPI - General Chief complaint: Weakness Stated complaint: Weakness Time Seen by Provider: 05/07/19 13:47 Source: patient, family, EMS, RN notes reviewed Mode of arrival: EMS Limitations: no limitations - History of Present Illness Initial comments: Patient is a pleasant 74-year-old male presenting to the emergency Department with complaints of generalized weakness. Onset of symptoms was yesterday and worsened today. Patient feels somewhat weak all over. Patient has been shaking. Per family patient has had some decreased oral intake recently. Patient does have leakage of his right foot. Patient has had this chronically however worse recently and now is yellowish leakage. Patient does have chronic bilateral foot problems. - Related Data Home Medications Medication Instructions Recorded Confirmed FLUoxetine HCL [PROzac] 20 mg PO DAILY@1000 07/03/13 05/07/19 Terazosin [Hytrin] 8 mg PO HS@0000 12/25/13 05/07/19 LORazepam [Ativan] 1 mg PO TID@0000,1000,1800 04/27/17 05/07/19 Ranolazine [Ranexa] 1,000 mg PO BID@1000,2200 04/27/17 05/07/19 oxyCODONE HCL [Roxicodone] 5 mg PO DAILY@1800 04/27/17 05/07/19 Furosemide [Lasix] 60 mg PO BID@1000,1800 06/26/18 05/07/19 Isosorbide Mononitrate ER [Imdur] 30 mg PO DAILY@1000 06/26/18 05/07/19 Labetalol HCl [Trandate] 300 mg PO BID@1000,2200 11/16/18 05/07/19 Gabapentin [Neurontin] 100 mg PO TID@0000,1000,1800 05/07/19 05/07/19 Iron Polysaccharide Complex 150 mg PO MOWEFR 05/07/19 05/07/19 [Myferon 150] Nitroglycerin Sl Tabs [Nitrostat] 0.4 mg SUBLINGUAL Q5M PRN 05/07/19 05/07/19 Rivaroxaban [Xarelto] 15 mg PO DAILY@1800 05/07/19 05/07/19 oxyCODONE HCL [Roxicodone] 10 mg PO DAILY@0000 05/07/19 05/07/19 rOPINIRole HCL [Requip] 1 mg PO TID@0000,1000,1800 05/07/19 05/07/19 Allergies Allergy/AdvReac Type Severity Reaction Status Date / Time pravastatin Allergy Rash/Hives Verified 05/07/19 14:32 amlodipine AdvReac CONSTIPATIO Verified 05/07/19 14:32 N atenolol AdvReac MALE ED Verified 05/07/19 14:32 hydrochlorothiazide AdvReac RENAL Verified 05/07/19 14:32 IMPAIRMENT Review of Systems ROS Statement: Those systems with pertinent positive or pertinent negative responses have been documented in the HPI. ROS Other: All systems not noted in ROS Statement are negative. Constitutional: Denies: fever Eyes: Denies: eye pain ENT: Denies: ear pain Respiratory: Denies: cough Cardiovascular: Denies: chest pain Endocrine: Denies: fatigue Gastrointestinal: Denies: abdominal pain Genitourinary: Denies: dysuria Musculoskeletal: Denies: back pain Skin: Denies: rash Neurological: Reports: as per HPI. Denies: headache Past Medical History Past Medical History: Atrial Fibrillation, Coronary Artery Disease (CAD), Chest Pain / Angina, Heart Failure, Hyperlipidemia, Hypertension, Myocardial Infarction ([place]), Osteoarthritis (OA), Renal Disease Additional Past Medical History / Comment(s): ? 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 pt stated has slept in recliner chair for past 10 years, uti ecoli 2013. gout in past, djd, lumbar disc disease. restless leg , leg cellulitis/swelling, falls/ Last Myocardial Infarction Date:: 2009 History of Any Multi-Drug Resistant Organisms: None Reported Date of last positivie culture/infection: 04/02/2018 MDRO Source:: leg wound Past Surgical History: Heart Catheterization With Stent, Tonsillectomy Additional Past Surgical History / Comment(s): [id number] stents, rt hand sx to repair severed lig/tendons(age 20) has limited use of index finger Past Anesthesia/Blood Transfusion Reactions: No Reported Reaction Additional Past Anesthesia/Blood Transfusion Reaction / Comment(s): clausterphobia Date of Last Stent Placement:: 2009 Past Psychological History: No Psychological Hx Reported Smoking Status: Never smoker Past Alcohol Use History: None Reported Past Drug Use History: None Reported - Past Family History Mother Family Medical History: Cancer Additional Family Medical History / Comment(s): breast cancer, heart problems was on warfarin(pt stated she bled out) Father Family Medical History: Coronary Artery Disease (CAD), Myocardial Infarction ([place]) Additional Family Medical History / Comment(s): Father had his 1st [place] in his 50s and then from his 2nd NV at the age of 74yrs. General Exam Limitations: no limitations General appearance: alert, in no apparent distress Head exam: Present: normocephalic Eye exam: Present: normal appearance, PERRL ENT exam: Present: normal oropharynx Neck exam: Present: normal inspection Respiratory exam: Present: normal lung sounds bilaterally Cardiovascular Exam: Present: regular rate, normal rhythm GI/Abdominal exam: Present: soft. Absent: tenderness Extremities exam: Present: normal inspection, other (Bilateral chronic foot discoloration, purplish. Right dorsal foot with small area that there does appear to be yellowish leakage from.) Neurological exam: Present: alert. Absent: motor sensory deficit Psychiatric exam: Present: normal affect, normal mood Skin exam: Present: other (Bilateral chronic foot discoloration) Course Vital Signs 05/07/19 05/07/19 13:51 15:00 Temperature 99.4 F Pulse Rate 62 52 L Respiratory 16 18 Rate Blood Pressure 140/86 144/64 O2 Sat by Pulse 98 98 Oximetry EKG Findings - EKG Comments: EKG Findings:: A. fib with a rate of 53. QRS 118. QT 454. QTC 426. Left axis. Left anterior fascicular block. No acute ST change. Medical Decision Making - Medical Decision Making Patient reevaluated and resting comfortably in bed. Patient and family updated on results and plan. Medications given for hyperkalemia. IV fluids provided. IV antibiotics will be provided. Case was discussed in detail with Dr. Sheikh, covering for hospital call, who will admit - Lab Data Result diagrams: 05/07/19 14:04 05/07/19 14:04 Lab Results 05/07/19 05/07/19 05/07/19 Range/Units 14:04 14:04 14:04 WBC 15.2 H (3.8-10.6) k/uL RBC 3.49 L (4.30-5.90) m/uL Hgb 11.0 L (13.0-17.5) gm/dL Hct 33.8 L (39.0-53.0) % MCV 96.9 (80.0-100.0) fL MCH 31.5 (25.0-35.0) pg MCHC 32.5 (31.0-37.0) g/dL RDW 15.9 H (11.5-15.5) % Plt Count 386 (150-450) k/uL Neutrophils % 87 % Lymphocytes % 3 % Monocytes % 6 % Eosinophils % 2 % Basophils % 0 % Neutrophils # 13.2 H (1.3-7.7) k/uL Lymphocytes # 0.5 L (1.0-4.8) k/uL Monocytes # 1.0 (0-1.0) k/uL Eosinophils # 0.3 (0-0.7) k/uL Basophils # 0.0 (0-0.2) k/uL PT 14.1 H (9.0-12.0) sec INR 1.4 H (<1.2) APTT 37.9 H (22.0-30.0) sec Sodium 134 L (137-145) mmol/L Potassium 7.3 H* (3.5-5.1) mmol/L Chloride 101 (98-107) mmol/L Carbon Dioxide 21 L (22-30) mmol/L Anion Gap 12 mmol/L BUN 73 H (9-20) mg/dL Creatinine 3.63 H (0.66-1.25) mg/dL Est GFR (CKD-EPI)AfAm 18 (>60 ml/min/1.73 sqM) Est GFR (CKD-EPI)NonAf 16 (>60 ml/min/1.73 sqM) Glucose 115 H (74-99) mg/dL Plasma Lactic Acid Harman (0.7-2.0) mmol/L Calcium 9.4 (8.4-10.2) mg/dL Magnesium 3.1 H (1.6-2.3) mg/dL Total Bilirubin 1.0 (0.2-1.3) mg/dL AST 25 (17-59) U/L ALT 14 (4-49) U/L Alkaline Phosphatase 102 (38-126) U/L Creatine Kinase 102 (55-170) U/L Troponin I (0.000-0.034) ng/mL Total Protein 8.4 H (6.3-8.2) g/dL Albumin 4.2 (3.5-5.0) g/dL Urine Color Urine Appearance (Clear) Urine pH (5.0-8.0) Ur Specific [place] (1.001-1.035) Urine Protein (Negative) Urine Glucose (UA) (Negative) Urine Ketones (Negative) Urine Blood (Negative) Urine Nitrite (Negative) Urine Bilirubin (Negative) Urine Urobilinogen (<2.0) mg/dL Ur Leukocyte Esterase (Negative) Urine RBC (0-5) /hpf Urine WBC (0-5) /hpf Urine WBC Clumps (None) /hpf Urine Bacteria (None) /hpf Hyaline Casts (0-2) /lpf Urine Mucus (None) /hpf 05/07/19 05/07/19 05/07/19 Range/Units 14:04 14:04 14:04 WBC (3.8-10.6) k/uL RBC (4.30-5.90) m/uL Hgb (13.0-17.5) gm/dL Hct (39.0-53.0) % MCV (80.0-100.0) fL MCH (25.0-35.0) pg MCHC (31.0-37.0) g/dL RDW (11.5-15.5) % Plt Count (150-450) k/uL Neutrophils % % Lymphocytes % % Monocytes % % Eosinophils % % Basophils % % Neutrophils # (1.3-7.7) k/uL Lymphocytes # (1.0-4.8) k/uL Monocytes # (0-1.0) k/uL Eosinophils # (0-0.7) k/uL Basophils # (0-0.2) k/uL PT (9.0-12.0) sec INR (<1.2) APTT (22.0-30.0) sec Sodium (137-145) mmol/L Potassium (3.5-5.1) mmol/L Chloride (98-107) mmol/L Carbon Dioxide (22-30) mmol/L Anion Gap mmol/L BUN (9-20) mg/dL Creatinine (0.66-1.25) mg/dL Est GFR (CKD-EPI)AfAm (>60 ml/min/1.73 sqM) Est GFR (CKD-EPI)NonAf (>60 ml/min/1.73 sqM) Glucose (74-99) mg/dL Plasma Lactic Acid Harman 1.7 (0.7-2.0) mmol/L Calcium (8.4-10.2) mg/dL Magnesium (1.6-2.3) mg/dL Total Bilirubin (0.2-1.3) mg/dL AST (17-59) U/L ALT (4-49) U/L Alkaline Phosphatase (38-126) U/L Creatine Kinase (55-170) U/L Troponin I <0.012 (0.000-0.034) ng/mL Total Protein (6.3-8.2) g/dL Albumin (3.5-5.0) g/dL Urine Color Yellow Urine Appearance Cloudy (Clear) Urine pH 5.5 (5.0-8.0) Ur Specific [place] 1.018 (1.001-1.035) Urine Protein Trace H (Negative) Urine Glucose (UA) Negative (Negative) Urine Ketones Negative (Negative) Urine Blood Trace H (Negative) Urine Nitrite Positive (Negative) Urine Bilirubin Negative (Negative) Urine Urobilinogen <2.0 (<2.0) mg/dL Ur Leukocyte Esterase Large H (Negative) Urine RBC 1 (0-5) /hpf Urine WBC 143 H (0-5) /hpf Urine WBC Clumps Many H (None) /hpf Urine Bacteria Rare H (None) /hpf Hyaline Casts 1 (0-2) /lpf Urine Mucus Rare H (None) /hpf - Radiology Data Radiology results: image reviewed (Chest x-ray and foot x-ray shows no acute process) Critical Care Time Critical Care Time: Yes Total Critical Care Time: 33 Disposition Clinical Impression: Acute renal failure (ARF), Bilateral lower leg cellulitis, Hyperkalemia Disposition: ADMITTED IP TO THIS [facility] Condition: Serious Is patient prescribed a controlled substance at d/c from ED?: No Referrals: Jerod Braun MD [Primary Care Provider] - 1-2 days Decision Time: 15:31
[2019-05-07 14:55] LABS: Albumin 4.2 g/dL (3.5-5.0); Calcium 9.4 mg/dL (8.4-10.2); Magnesium 3.1 mg/dL (1.6-2.3); Total Protein 8.4 g/dL (6.3-8.2)
[2019-05-07 15:00] LABS: Basophils % (A) 0 %; Eosinophils # (A) 0.3 k/uL (0-0.7); Eosinophils % (A) 2 %; HCT 33.8 % (39.0-53.0); Lymphocytes # (A) 0.5 k/uL (1.0-4.8); Lymphocytes % (A) 3 %; MCH 31.5 pg (25.0-35.0); MCHC 32.5 g/dL (31.0-37.0); MCV 96.9 fL (80.0-100.0); Mean Platelet Volume 7.4; Monocytes % (A) 6 %; Neutrophils # (A) 13.2 k/uL (1.3-7.7); Neutrophils % (A) 87 %; Platelet Count 386 k/uL (150-450); RBC 3.49 m/uL (4.30-5.90); RDW 15.9 % (11.5-15.5); WBC 15.2 k/uL (3.8-10.6)
[2019-05-07 15:01] LABS: Potassium 7.3 mmol/L (3.5-5.1)
[2019-05-07 15:07] LABS: INR 1.4 (<1.2); Partial Thromboplastin Time 37.9 sec (22.0-30.0); Prothrombin Time 14.1 sec (9.0-12.0)
[2019-05-07 15:09] LABS: Appearance,Urine Cloudy (Clear); Bacteria,Urine Rare /hpf; Bilirubin,Urine Negative (Negative); Blood,Urine Trace (Negative); Color,Urine Yellow; Glucose,Urine (UA) Negative (Negative); Hyaline Casts,Urine 1 /lpf (0-2); Ketones,Urine Negative (Negative); Leukocyte Esterase,Urine Large (Negative); Mucus,Urine Rare /hpf; Nitrite,Urine Positive (Negative); PH, Urine 5.5 (5.0-8.0); Protein,Urine Trace (Negative); RBC,Urine 1 /hpf (0-5); Specific Gravity,Urine 1.018 (1.001-1.035); Urobilinogen,Urine <2.0 mg/dL (<2.0); WBC,Urine 143 /hpf (0-5)
--- NOTE | 2019-05-07 15:14 | XR ---
EXAMINATION TYPE: XR foot complete RT DATE OF EXAM: 05/07/2019 CLINICAL HISTORY: Leakage from wound and fever. TECHNIQUE: Frontal, lateral, and oblique images of the right foot are obtained. COMPARISON: None FINDINGS: Osseous structures are demineralized which is noted to lower radiographic sensitivity for e valuation fine anatomic detail. Advanced joint space narrowing with moderate to advanced peripheral s purring and subchondral cystic change first metatarsophalangeal joint. No acute fracture or dislocati on. Moderate to large size inferior calcaneal spur. No suspicious cortical destruction or periosteal reaction identified to suggest acute osteomyelitis. Overlying soft tissue unremarkable. IMPRESSION: As above.
--- NOTE | 2019-05-07 15:16 | XR ---
EXAMINATION TYPE: XR chest 2V DATE OF EXAM: 05/07/2019 COMPARISON: Chest x-ray June 2018. HISTORY: Weakness and fever. TECHNIQUE: Frontal and lateral views of the chest are obtained. FINDINGS: The osseous structures are demineralized. Multilevel spurring in the mid to lower thoracic spine is present. Cardiomegaly with atherosclerotic thoracic aorta. There is chronic parenchymal vann ge without suspicious focal airspace opacity or pneumothorax seen bilaterally. IMPRESSION: Cardiomegaly and chronic changes without new suspicious acute pulmonary process.
[2019-05-07] MEDS ORDERED: SODIUM BICARB 8.4% 50 ML SYR (1 MEQ/ML) IV ONE (15:21)
[2019-05-07] MEDS ORDERED: SODIUM CHLORIDE 0.9% 1,000 ML IV STA ×2 (15:21)
[2019-05-07] MEDS ORDERED: SODIUM POLYSTYRENE SULFONATE 15 GM/60 ML BOTTLE PO ONE (15:21)
[2019-05-07] MEDS ORDERED: SODIUM CHLORIDE 0.9% 500 ML 500 ML IV STA (15:21)
[2019-05-07] MEDS ORDERED: ALBUTEROL NEB (CONC) 2.5 MG/0.5 ML INHALATION ONE (15:21)
[2019-05-07] MEDS ORDERED: DEXTROSE 50% SYRINGE 50 ML IVP ONE (15:21)
[2019-05-07] MEDS ORDERED: INSULIN REGULAR 100 UNIT/ML VIAL IV ONE ×2 (15:21→19:01)
[2019-05-07] MEDS ORDERED: AMPICILLIN-SULBACTAM 3 GM in SODIUM CHLORIDE 0.9% 100 ML IVPB STA (15:34)
[2019-05-07] MEDS ORDERED: CALCIUM GLUCONATE 1 GM in SODIUM CHLORIDE 0.9% 100 ML IVPB ONE (16:00)
[2019-05-07] MEDS ORDERED: NALOXONE 0.4 MG/ML 1 ML VIAL IV PRN (16:23)
[2019-05-07] MEDS ORDERED: NITROGLYCERIN SL TABS 0.4 MG TAB SUBLINGUAL PRN (16:29)
[2019-05-07] MEDS: SODIUM CHLORIDE 0.9% 1,000 ML IV SCH (16:42)
--- NOTE | 2019-05-07 16:44 | P.HPIM ---
History of Present Illness H&P Date: 05/07/19 Chief Complaint: Weakness 74-year-old male with history of coronary artery disease, peripheral vascular disease, atrial fibrillation, chronic, bilateral lymphedema, chronic presenting to the emergency Department with complaints of generalized weakness and confusion. Onset of symptoms was yesterday and worsened today however noted that patient was slightly wobbly over the past week. Patient has been shaking. Per family patient has had some decreased oral intake recently. He also gives 60 mg of Lasix 2 times a day. His thought that he was dehydrated and because of that she did not get him his Lasix today. Patient has chronic lower extremities swelling and skin changes. Over the last several days his noted that the serous discharged from a right foot wound started becoming yellowish in color. Patient denied having fevers, no chills, no chest pain or shortness of breath. No nausea or vomiting. No diarrhea. In the emergency department patient was found to be in acute on chronic renal insufficiency, and potassium was 7.3. This was treated with sodium bicarbonate, calcium gluconate, insulin with D50 injections. Patient was subsequently a dmitted for further monitoring and evaluation. Review of Systems Complete review of system performed, pertinent positives as per HPI, otherwise negative Past Medical History Past Medical History: Atrial Fibrillation, Coronary Artery Disease (CAD), Chest Pain / Angina, Heart Failure, Hyperlipidemia, Hypertension, Myocardial Infarct ion ([place]), Osteoarthritis (OA), Renal Disease Additional Past Medical History / Comment(s): ? 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 pt stated has slept in recliner chair for past 10 years, uti ecoli 2013. gout in past, djd, lumbar disc disea se. restless leg , leg cellulitis/swelling, falls/ Last Myocardial Infarction Date:: 2009 History of Any Multi-Drug Resistant Organisms: None Reported Date of last positivie culture/infection: 04/02/2018 MDRO Source:: leg wound Past Surgical History: Heart Catheterization With Stent, Tonsillectomy Additional Past Surgical History / Comment(s): [id number] stents, rt hand sx to repair severed lig/tendons(age 20) has limited use of index finger Past Anesthesia/Blood Transfusion Reactions: No Reported Reaction Additional Past Anesthesia/Blood Transfusion Reaction / Comment(s): clausterphobia Date of Last Stent Placement:: 2009 Past Psychological History: No Psychological Hx Reported Smoking Status: Never smoker Past Alcohol Use History: None Reported Past Drug Use History: None Reported - Past Family History Mother Family Medical History: Cancer Additional Family Medical History / Comment(s): breast cancer, heart problems was on warfarin(pt stated she bled out) Father Family Medical History: Coronary Artery Disease (CAD), Myocardial Infarction ([place]) Additional Family Medical History / Comment(s): Father had his 1st [place] in his 50s and then from his 2nd [place] at the age of 74yrs. Medications and Allergies Home Medications Medication Instructions Recorded Confirmed Type FLUoxetine HCL [PROzac] 20 mg PO DAILY@1000 07/03/13 05/07/19 History Terazosin [Hytrin] 8 mg PO HS@0000 12/25/13 05/07/19 History LORazepam [Ativan] 1 mg PO TID@0000,1000,1800 04/27/17 05/07/19 History Ranolazine [Ranexa] 1,000 mg PO BID@1000,2200 04/27/17 05/07/19 History oxyCODONE HCL [Roxicodone] 5 mg PO DAILY@1800 04/27/17 05/07/19 History Furosemide [Lasix] 60 mg PO BID@1000,1800 06/26/18 05/07/19 History Isosorbide Mononitrate ER [Imdur] 30 mg PO DAILY@1000 06/26/18 05/07/19 History Labetalol HCl [Trandate] 300 mg PO BID@1000,2200 11/16/18 05/07/19 History Gabapentin [Neurontin] 100 mg PO TID@0000,1000,1800 05/07/19 05/07/19 History Iron Polysaccharide Complex 150 mg PO MOWEFR 05/07/19 05/07/19 History [Myferon 150] Nitroglycerin Sl Tabs [Nitrostat] 0.4 mg SUBLINGUAL Q5M PRN 05/07/19 05/07/19 History Rivaroxaban [Xarelto] 15 mg PO DAILY@1800 05/07/19 05/07/19 History oxyCODONE HCL [Roxicodone] 10 mg PO DAILY@0000 05/07/19 05/07/19 History rOPINIRole HCL [Requip] 1 mg PO TID@0000,1000,1800 05/07/19 05/07/19 History Allergies Allergy/AdvReac Type Severity Reaction Status Date / Time pravastatin Allergy Rash/Hives Verified 05/07/19 14:32 amlodipine AdvReac CONSTIPATIO Verified 05/07/19 14:32 N atenolol AdvReac MALE ED Verified 05/07/19 14:32 hydrochlorothiazide AdvReac RENAL Verified 05/07/19 14:32 IMPAIRMENT Physical Exam Vitals: Vital Signs Temp Pulse Resp BP Pulse Ox 05/07/19 15:00 52 L 18 144/64 98 05/07/19 13:51 99.4 F 62 16 140/86 98 Intake and Output 05/07/19 05/07/19 05/07/19 06:59 14:59 22:59 Other: Weight 84.368 kg Constitutional: No acute distress, conversant, pleasant Eyes:Anicteric sclerae, moist conjunctiva, no lid-lag, PERRLA, ENMT: Oropharynx clear, no erythema, exudates Neck: Supple, FROM, no masses, or JVD, No carotid bruits, No thyromegaly Lungs: Clear to auscultation, Clear to percussion, Normal respiratory effort, no accessory muscle use Cardiovascular: Irregularly irregular, bradycardic, No murmurs, gallops, or rubs, No peripheral edema Abdominal: Soft, Nontender, no guarding, rebound or rigidity, Normoactive bowel sounds, No hepatomegaly, No splenomegaly, No palpable mass Skin: Chronic skin changes in bilateral lower extremities, right leg slightly more swollen than the left. Yellowish discharge noted seeping from a small wound on the dorsal aspect of the right foot. Erythematous and purple discoloration noted to be scattered throughout the legs. Extremities: No digital cyanosis, No clubbing, Pedal pulses intact and symmetrical, Radial pulses intact and symmetrical, No calf tenderness Psychiatric: Alert and oriented to person, place and time, appropriate affect, intact judgement Neuro: Muscles Strength 5/5 in all 4 extremities, Sensation to light touch grossly present throughout, Cranial nerves II-XII grossly intact, no focal sensory deficits Results CBC & Chem 7: 05/07/19 14:04 05/07/19 14:04 Labs: Abnormal Lab Results - Last 24 Hours (Table) 05/07/19 05/07/19 05/07/19 Range/Units 14:04 14:04 14:04 WBC 15.2 H (3.8-10.6) k/uL RBC 3.49 L (4.30-5.90) m/uL Hgb 11.0 L (13.0-17.5) gm/dL Hct 33.8 L (39.0-53.0) % RDW 15.9 H (11.5-15.5) % Neutrophils # 13.2 H (1.3-7.7) k/uL Lymphocytes # 0.5 L (1.0-4.8) k/uL PT 14.1 H (9.0-12.0) sec INR 1.4 H (<1.2) APTT 37.9 H (22.0-30.0) sec Sodium 134 L (137-145) mmol/L Potassium 7.3 H* (3.5-5.1) mmol/L Carbon Dioxide 21 L (22-30) mmol/L BUN 73 H (9-20) mg/dL Creatinine 3.63 H (0.66-1.25) mg/dL Glucose 115 H (74-99) mg/dL Magnesium 3.1 H (1.6-2.3) mg/dL Total Protein 8.4 H (6.3-8.2) g/dL Urine Protein (Negative) Urine Blood (Negative) Ur Leukocyte Esterase (Negative) Urine WBC (0-5) /hpf Urine WBC Clumps (None) /hpf Urine Bacteria (None) /hpf Urine Mucus (None) /hpf 05/07/19 Range/Units 14:04 WBC (3.8-10.6) k/uL RBC (4.30-5.90) m/uL Hgb (13.0-17.5) gm/dL Hct (39.0-53.0) % RDW (11.5-15.5) % Neutrophils # (1.3-7.7) k/uL Lymphocytes # (1.0-4.8) k/uL PT (9.0-12.0) sec INR (<1.2) APTT (22.0-30.0) sec Sodium (137-145) mmol/L Potassium (3.5-5.1) mmol/L Carbon Dioxide (22-30) mmol/L BUN (9-20) mg/dL Creatinine (0.66-1.25) mg/dL Glucose (74-99) mg/dL Magnesium (1.6-2.3) mg/dL Total Protein (6.3-8.2) g/dL Urine Protein Trace H (Negative) Urine Blood Trace H (Negative) Ur Leukocyte Esterase Large H (Negative) Urine WBC 143 H (0-5) /hpf Urine WBC Clumps Many H (None) /hpf Urine Bacteria Rare H (None) /hpf Urine Mucus Rare H (None) /hpf Assessment and Plan Plan: Acute on chronic renal failure with hyperkalemia Likely secondary to dehydration due to treatment with Lasix and not drinking enough liquids. Hold Lasix IV fluids Recheck creatinine and potassium later today and in a.m. Avoid nephrotoxic medications Right lower extremity cellulitis Start clindamycin and Unasyn Monitor clinically UTI Antibiotics as above Blood and urine cultures sent in the emergency department General weakness/adult failure to thrive Likely secondary to combination of above PT evaluation Chronic CAD Atrial fibrillation, persistent Peripheral vascular disease Essential hypertension Anemia of chronic disease All stable Resume meds Patient will be admitted to inpatient, estimated length of stay more than 2 midnights Anticipated discharge: 2-3 days Disposition: Likely home
[2019-05-07] MEDS ORDERED: CLINDAMYCIN 600 MG in DEXTROSE 5% IN WATER 50 ML IVPB ONE ×2 (16:45)
[2019-05-07] MEDS: LORazepam 1 MG TAB PO SCH (18:11)
[2019-05-07] MEDS: GABAPENTIN 100 MG CAP PO SCH ×2 (18:11→23:25)
[2019-05-07] MEDS: RIVAROXABAN 15 MG TAB PO SCH (18:11)
[2019-05-07 18:37] LABS: Calcium 8.8 mg/dL (8.4-10.2)
[2019-05-07 18:50] LABS: Potassium 6.2 mmol/L (3.5-5.1)
[2019-05-07] MEDS ORDERED: DEXTROSE 50% SYRINGE 50 ML IVP STA (18:59)
[2019-05-07] MEDS ORDERED: SODIUM BICARB 8.4% 50 ML SYR (1 MEQ/ML) IV STA (19:00)
[2019-05-07] MEDS: RANOLAZINE 500 MG TAB.ER.12H PO SCH (22:30)
[2019-05-07] MEDS: DOXAZOSIN 4 MG TAB PO SCH (23:25)
[2019-05-08] MEDS ORDERED: SODIUM POLYSTYRENE SULFONATE 15 GM/60 ML BOTTLE PO STA (00:55)
[2019-05-08] MEDS ORDERED: INSULIN REGULAR 100 UNIT/ML VIAL IV ONE (00:56)
[2019-05-08] MEDS ORDERED: DEXTROSE 50% SYRINGE 50 ML IVP STA (00:56)
[2019-05-08] MEDS ORDERED: CALCIUM GLUCONATE 1 GM in SODIUM CHLORIDE 0.9% 100 ML IVPB ONE (01:00)
[2019-05-08] MEDS: AMPICILLIN-SULBACTAM 3 GM in SODIUM CHLORIDE 0.9% 100 ML IVPB SCH ×3 (01:04→22:05)
[2019-05-08] MEDS: CLINDAMYCIN 600 MG in DEXTROSE 5% IN WATER 50 ML IVPB SCH ×6 (01:45→18:10)
[2019-05-08] MEDS: LABETALOL 100 MG TAB PO SCH ×3 (04:35→22:08)
[2019-05-08] MEDS: LORazepam 1 MG TAB PO SCH ×3 (04:36→18:01)
[2019-05-08 06:56] LABS: Basophils % (A) 0 %; Eosinophils # (A) 0.2 k/uL (0-0.7); Eosinophils % (A) 1 %; HGB 9.7 gm/dL (13.0-17.5); Lymphocytes # (A) 0.7 k/uL (1.0-4.8); Lymphocytes % (A) 4 %; MCH 31.4 pg (25.0-35.0); MCHC 32.3 g/dL (31.0-37.0); MCV 97.2 fL (80.0-100.0); Mean Platelet Volume 7.2; Monocytes # (A) 0.9 k/uL (0-1.0); Monocytes % (A) 6 %; Neutrophils # (A) 14.5 k/uL (1.3-7.7); Neutrophils % (A) 86 %; Platelet Count 352 k/uL (150-450); RBC 3.08 m/uL (4.30-5.90); RDW 15.9 % (11.5-15.5); WBC 16.7 k/uL (3.8-10.6)
[2019-05-08] MEDS: SODIUM CHLORIDE 0.9% 1,000 ML IV SCH ×2 (07:20→22:53)
[2019-05-08 07:40] LABS: Albumin 3.5 g/dL (3.5-5.0); Calcium 8.7 mg/dL (8.4-10.2); Magnesium 2.8 mg/dL (1.6-2.3); Phosphorus 3.7 mg/dL (2.5-4.5); Potassium 4.9 mmol/L (3.5-5.1); Total Bilirubin 1.2 mg/dL (0.2-1.3); Total Protein 7.4 g/dL (6.3-8.2)
[2019-05-08] MEDS: ISOSORBIDE MONONITRATE ER 60 MG TAB.ER.24H PO SCH (09:04)
[2019-05-08] MEDS: RANOLAZINE 500 MG TAB.ER.12H PO SCH ×2 (09:04→21:24)
[2019-05-08] MEDS: GABAPENTIN 100 MG CAP PO SCH ×2 (09:04→18:01)
[2019-05-08] MEDS: FLUoxetine HCL 20 MG CAP PO SCH (09:04)
--- NOTE | 2019-05-08 10:42 | P.PN ---
Subjective Progress Note Date: 05/08/19 Principal diagnosis: Confusion and weakness Patient asking to go home. He is currently less confused compared to prior. According to nursing he is at his baseline strength, walks with a walker with slight shaking. No chest pain or shortness of breath. No fevers or chills. No overnight events. Objective - Vital Signs Vital signs: Vital Signs Temp 98.1 F 05/08/19 08:10 Pulse 62 05/08/19 08:10 Resp 18 05/08/19 08:10 BP 120/51 05/08/19 08:10 Pulse Ox 95 05/08/19 08:10 Intake & Output 05/07/19 05/08/19 05/08/19 18:59 06:59 18:59 Intake Total 900 240 Output Total 475 Balance 425 240 Weight 84.368 kg 116.7 kg Intake: IV 900 Sodium Chloride 0.9% 1, 900 000 ml @ 75 mls/hr IV . [id number] [facility] Rx#:[id number] Oral 240 Output: Urine 475 Other: Voiding Method Urinal # Voids 1 # Bowel Movements 1 - Exam Constitutional: No acute distress, conversant, pleasant Eyes:Anicteric sclerae, moist conjunctiva, no lid-lag, PERRLA, ENMT: Oropharynx clear, no erythema, exudates Neck: Supple, FROM, no masses, or JVD, No carotid bruits, No thyromegaly Lungs: Clear to auscultation, Clear to percussion, Normal respiratory effort, no accessory muscle use Cardiovascular: Irregularly irregular, bradycardic, No murmurs, gallops, or rubs, No peripheral edema Abdominal: Soft, Nontender, no guarding, rebound or rigidity, Normoactive bowel sounds, No hepatomegaly, No splenomegaly, No palpable mass Skin: Chronic skin changes in bilateral lower extremities, right leg slightly more swollen than the left. Yellowish discharge noted seeping from a small wound on the dorsal aspect of the right foot. Erythematous and purple discoloration noted to be scattered throughout the legs. Extremities: No digital cyanosis, No clubbing, Pedal pulses intact and symmetrical, Radial pulses intact and symmetrical, No calf tenderness Psychiatric: Alert and oriented to person, place and time, appropriate affect, intact judgement Neuro: Muscles Strength 5/5 in all 4 extremities, Sensation to light touch grossly present throughout, Cranial nerves II-XII grossly intact, no focal sensory deficits - Labs CBC & Chem 7: 05/08/19 06:40 05/08/19 06:40 Labs: Abnormal Lab Results - Last 24 Hours (Table) 05/07/19 05/07/19 05/07/19 Range/Units 14:04 14:04 14:04 WBC 15.2 H (3.8-10.6) k/uL RBC 3.49 L (4.30-5.90) m/uL Hgb 11.0 L (13.0-17.5) gm/dL Hct 33.8 L (39.0-53.0) % RDW 15.9 H (11.5-15.5) % Neutrophils # 13.2 H (1.3-7.7) k/uL Lymphocytes # 0.5 L (1.0-4.8) k/uL PT 14.1 H (9.0-12.0) sec INR 1.4 H (<1.2) APTT 37.9 H (22.0-30.0) sec Sodium 134 L (137-145) mmol/L Potassium 7.3 H* (3.5-5.1) mmol/L Carbon Dioxide 21 L (22-30) mmol/L BUN 73 H (9-20) mg/dL Creatinine 3.63 H (0.66-1.25) mg/dL Glucose 115 H (74-99) mg/dL Magnesium 3.1 H (1.6-2.3) mg/dL Total Protein 8.4 H (6.3-8.2) g/dL Urine Protein (Negative) Urine Blood (Negative) Ur Leukocyte Esterase (Negative) Urine WBC (0-5) /hpf Urine WBC Clumps (None) /hpf Urine Bacteria (None) /hpf Urine Mucus (None) /hpf 05/07/19 05/07/19 05/07/19 Range/Units 14:04 17:57 22:33 WBC (3.8-10.6) k/uL RBC (4.30-5.90) m/uL Hgb (13.0-17.5) gm/dL Hct (39.0-53.0) % RDW (11.5-15.5) % Neutrophils # (1.3-7.7) k/uL Lymphocytes # (1.0-4.8) k/uL PT (9.0-12.0) sec INR (<1.2) APTT (22.0-30.0) sec Sodium 136 L (137-145) mmol/L Potassium 6.2 H* 6.1 H* (3.5-5.1) mmol/L Carbon Dioxide (22-30) mmol/L BUN 69 H (9-20) mg/dL Creatinine 3.27 H (0.66-1.25) mg/dL Glucose 101 H (74-99) mg/dL Magnesium (1.6-2.3) mg/dL Total Protein (6.3-8.2) g/dL Urine Protein Trace H (Negative) Urine Blood Trace H (Negative) Ur Leukocyte Esterase Large H (Negative) Urine WBC 143 H (0-5) /hpf Urine WBC Clumps Many H (None) /hpf Urine Bacteria Rare H (None) /hpf Urine Mucus Rare H (None) /hpf 05/08/19 05/08/19 Range/Units 06:40 06:40 WBC 16.7 H (3.8-10.6) k/uL RBC 3.08 L (4.30-5.90) m/uL Hgb 9.7 L (13.0-17.5) gm/dL Hct 30.0 L (39.0-53.0) % RDW 15.9 H (11.5-15.5) % Neutrophils # 14.5 H (1.3-7.7) k/uL Lymphocytes # 0.7 L (1.0-4.8) k/uL PT (9.0-12.0) sec INR (<1.2) APTT (22.0-30.0) sec Sodium (137-145) mmol/L Potassium (3.5-5.1) mmol/L Carbon Dioxide (22-30) mmol/L BUN 62 H (9-20) mg/dL Creatinine 3.00 H (0.66-1.25) mg/dL Glucose 107 H (74-99) mg/dL Magnesium 2.8 H (1.6-2.3) mg/dL Total Protein (6.3-8.2) g/dL Urine Protein (Negative) Urine Blood (Negative) Ur Leukocyte Esterase (Negative) Urine WBC (0-5) /hpf Urine WBC Clumps (None) /hpf Urine Bacteria (None) /hpf Urine Mucus (None) /hpf Microbiology - Last 24 Hours (Table) 05/07/19 14:04 Urine Culture - Preliminary Urine,Voided Assessment and Plan Plan: Acute on chronic renal failure with hyperkalemia Likely secondary to dehydration due to treatment with Lasix and not drinking enough liquids. Holding Lasix Continue IV fluids Potassium is better today but the creatinine still high, 3 his baseline is less than 2. Avoid nephrotoxic medications Right lower extremity cellulitis Continue clindamycin and Unasyn Monitor clinically UTI Antibiotics as above Blood and urine cultures currently pending Acute metabolic encephalopathy Secondary to above Improving General weakness/adult failure to thrive Likely secondary to combination of above Continue PT Chronic CAD Atrial fibrillation, persistent Peripheral vascular disease Essential hypertension Anemia of chronic disease All stable Resume meds Anticipated discharge: 1-2 days Disposition: Likely home
--- NOTE | 2019-05-08 14:57 | CDI ---
Documentation Clarification Form Date: 05/08/2019 02:49:40 PM From: Juany Aleman RN, CCDS Admit Date: 05/07/2019 04:23:00 PM Patient Name: Jose Moreno Visit Number: [id number] ATTENTION: The Clinical Documentation Specialists (CDI) and [facility] Coding Staff appreciate your assistance in clarifying documentation. Please respond to the clarification below the line at the bottom and electronically sign. The CDI & [facility] Coding staff will review the response and follow-up if needed. Please note: Queries are made part of the Legal Health Record. If you have any questions, please contact the author of this message via ITS. Dr. Amber Gutierrez CKD is documented in the H&P and Progress Notes and requires further specificity. History/Risk Factors: HTN, CAD, CHF, Renal disease 06/27/18 Patients Historical BUN/CR/GFR 33/1.96/33 Clinical Indicators: H&P and Progress Note: "Acute on chronic renal failure with hyperkalemia Likely secondary to dehydration due to treatment with Lasix and not drinking enough liquids." 05/06-05/07 Current BUN: 73/69/62 CR:3.63/3.27/3 GFR: Treatment: Lebetalol 300 mg PO BID 0.9% NS @ 75 cc/hr In order to capture the severity of condition, please clarify the stage of the CKD, if known: CKD Stage 1 (GFR > 90) CKD Stage 2 (GFR 60-89) CKD Stage 3 (GFR 30-59) CKD Stage 4 (GFR 15-29) CKD Stage 5 (GFR <15) ESRD Other, please specify Unable to determine (Last Revision: March 2019) CKD Stage 3B MTDD
[2019-05-08] MEDS: RIVAROXABAN 15 MG TAB PO SCH (18:01)
[2019-05-08] MEDS: DOXAZOSIN 4 MG TAB PO SCH (21:23)
[2019-05-08] MEDS: NITROGLYCERIN SL TABS 0.4 MG TAB SUBLINGUAL PRN (22:06)
[2019-05-09] MEDS: LORazepam 1 MG TAB PO SCH ×3 (00:33→17:31)
[2019-05-09] MEDS: GABAPENTIN 100 MG CAP PO SCH ×3 (00:34→17:31)
[2019-05-09] MEDS: CLINDAMYCIN 600 MG in DEXTROSE 5% IN WATER 50 ML IVPB SCH ×6 (03:25→17:31)
[2019-05-09] MEDS ORDERED: ASPIRIN 81 MG PO STA (03:52)
[2019-05-09 06:44] LABS: Anisocytosis Slight; Basophils % (A) 0 %; Eosinophils # (A) 0.3 k/uL (0-0.7); Eosinophils % (A) 3 %; HCT 27.5 % (39.0-53.0); HGB 8.9 gm/dL (13.0-17.5); Lymphocytes # (A) 0.5 k/uL (1.0-4.8); Lymphocytes % (A) 4 %; MCH 31.3 pg (25.0-35.0); MCHC 32.2 g/dL (31.0-37.0); MCV 97.2 fL (80.0-100.0); Mean Platelet Volume 7.3; Monocytes # (A) 0.6 k/uL (0-1.0); Monocytes % (A) 6 %; Neutrophils # (A) 9.4 k/uL (1.3-7.7); Neutrophils % (A) 85 %; Platelet Count 329 k/uL (150-450); RBC 2.83 m/uL (4.30-5.90); RDW 16.1 % (11.5-15.5)
[2019-05-09 07:10] LABS: Calcium 7.9 mg/dL (8.4-10.2); Magnesium 2.6 mg/dL (1.6-2.3); Phosphorus 4.6 mg/dL (2.5-4.5); Potassium 3.6 mmol/L (3.5-5.1)
[2019-05-09] MEDS ORDERED: ASPIRIN 81 MG PO SCH (09:00)
[2019-05-09] MEDS: LABETALOL 100 MG TAB PO SCH ×2 (09:48→21:29)
[2019-05-09] MEDS: RANOLAZINE 500 MG TAB.ER.12H PO SCH (09:48)
[2019-05-09] MEDS: FLUoxetine HCL 20 MG CAP PO SCH (09:49)
[2019-05-09] MEDS: ISOSORBIDE MONONITRATE ER 60 MG TAB.ER.24H PO SCH (09:50)
--- NOTE | 2019-05-09 10:38 | P.CRDCN ---
History of Present Illness Consult date: 05/09/19 Requesting physician: Victoria Xie Reason for Consult (text): Abnormal troponin Chief complaint: Generalized weakness and confusion History of present illness: This is a 74-year-old gentleman with known history of coronary artery disease, history of prior stenting performed at the in [place], patient follows her for his cardiac needs. He also has a history of paroxysmal atrial fibrillation, hyperlipidemia, hypertension, chronic kidney disease, chronic diastolic congestive heart failure, chronic bilateral lower extremity cellulitis. He presented to the hospital on this occasion with symptoms of generalized weakness and associated confusion. Patient also states that he had been noticing a significant amount of drainage from his lower extremities. His is not currently at the bedside and the patient does have some intermittent mild confusion. He denies having any chest discomfort, no difficulty in breathing. He states that he has not been eating or drinking at home much, but continued to take his twice a day doses of Lasix. An x-ray of the right foot was performed which did not reveal any acute fracture or dislocation. Chest x- ray showed cardiomegaly and chronic changes without new suspicious acute process. EKG shows atrial fibrillation with a slow ventricular response. Nonspecific ST-T wave changes. Laboratory data was reviewed, white blood cell count 16.7, hemoglobin 11 on admission, 8.9 this morning, platelet count 329. Sodium on admission 136, potassium 6.1, BUN 69, creatinine 3.2. Troponin 0.012, 0.034, 184. Positive UTI. Blood pressure 138/60 with a heart rate of 58, 95% on room air. He is afebrile this morning, patient did present with a temperature of 99.9. Echo performed in April 2018 revealed a normal left v entricular systolic function. Past Medical History Past Medical History: Atrial Fibrillation, Coronary Artery Disease (CAD), Chest Pain / Angina, Heart Failure, Hyperlipidemia, Hypertension, Myocardial Infarction (PA), Osteoarthritis (OA), Renal Disease Additional Past Medical History / Comment(s): ? 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 pt stated has slept in recliner chair for past 10 years, uti ecoli 2013. gout in past, djd, lumbar disc disease. restless leg , leg cellulitis/swelling, falls/ Last Myocardial Infarction Date:: 2009 History of Any Multi-Drug Resistant Organisms: None Reported Date of last positivie culture/infection: 04/02/2018 MDRO Source:: leg wound Past Surgical History: Heart Catheterization With Stent, Tonsillectomy Additional Past Surgical History / Comment(s): [id number] stents, rt hand sx to repair severed lig/tendons(age 20) has limited use of index finger Past Anesthesia/Blood Transfusion Reactions: No Reported Reaction Additional Past Anesthesia/Blood Transfusion Reaction / Comment(s): clausterphobia Date of Last Stent Placement:: 2009 Past Psychological History: No Psychological Hx Reported Additional Psychological History / Comment(s): PT RESIDES WITH HIS SPOUSE. PT SERVED IN THE [employer] WHEN YOUNGER ([employer]) AND AFTERWARDS WORKED FOR [employer]. HE USES A WHEELCHAIR PRN. HE DRIVES. HE SLEEPS IN A RECLINER. Smoking Status: Never smoker Past Alcohol Use History: None Reported Additional Past Alcohol Use History / Comment(s): Patient is a lifelong nonsmoker. He denies any marijuana or illicit drug use. He denies any alcohol use. He lives at home with his in their cats in the home. 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 He has been on disability and served in [employer] for 2 years in the [employer] for 7 years. Past Drug Use History: None Reported - Past Family History Mother Family Medical History: Cancer Additional Family Medical History / Comment(s): breast cancer, heart problems was on warfarin(pt stated she bled out) Father Family Medical History: Coronary Artery Disease (CAD), Myocardial Infarction (PA) Additional Family Medical History / Comment(s): Father had his 1st PA in his 50s and then from his 2nd PA at the age of 74yrs. Medications and Allergies Home Medications Medication Instructions Recorded Confirmed Type FLUoxetine HCL [PROzac] 20 mg PO DAILY@1000 07/03/13 05/07/19 History Terazosin [Hytrin] 8 mg PO HS@0000 12/25/13 05/07/19 History LORazepam [Ativan] 1 mg PO TID@0000,1000,1800 04/27/17 05/07/19 History Ranolazine [Ranexa] 1,000 mg PO BID@1000,2200 04/27/17 05/07/19 History oxyCODONE HCL [Roxicodone] 5 mg PO DAILY@1800 04/27/17 05/07/19 History Furosemide [Lasix] 60 mg PO BID@1000,1800 06/26/18 05/07/19 History Isosorbide Mononitrate ER [Imdur] 30 mg PO DAILY@1000 06/26/18 05/07/19 History Labetalol HCl [Trandate] 300 mg PO BID@1000,2200 11/16/18 05/07/19 History Gabapentin [Neurontin] 100 mg PO TID@0000,1000,1800 05/07/19 05/07/19 History Iron Polysaccharide Complex 150 mg PO MOWEFR 05/07/19 05/07/19 History [Myferon 150] Nitroglycerin Sl Tabs [Nitrostat] 0.4 mg SUBLINGUAL Q5M PRN 05/07/19 05/07/19 History Rivaroxaban [Xarelto] 15 mg PO DAILY@1800 05/07/19 05/07/19 History oxyCODONE HCL [Roxicodone] 10 mg PO DAILY@0000 05/07/19 05/07/19 History rOPINIRole HCL [Requip] 1 mg PO TID@0000,1000,1800 05/07/19 05/07/19 History Allergies Allergy/AdvReac Type Severity Reaction Status Date / Time pravastatin Allergy Rash/Hives Verified 05/07/19 14:32 amlodipine AdvReac CONSTIPATIO Verified 05/07/19 14:32 N atenolol AdvReac MALE ED Verified 05/07/19 14:32 hydrochlorothiazide AdvReac RENAL Verified 05/07/19 14:32 IMPAIRMENT Physical Exam Vitals: Vital Signs Temp Pulse Resp BP Pulse Ox 05/09/19 04:00 58 L 18 05/09/19 00:00 59 L 18 138/66 95 05/08/19 21:57 18 151/68 93 L 05/08/19 20:00 70 18 124/62 97 05/08/19 16:00 98 F 56 L 17 129/59 96 05/08/19 12:10 98 F 60 19 103/54 96 Intake and Output 05/08/19 05/09/19 05/09/19 22:59 06:59 14:59 Intake Total 240 240 Output Total 176 275 Balance 64 -275 240 Intake: Oral 240 240 Output: Urine 176 275 Other: Voiding Method Urinal Urinal # Voids 1 1 Weight 117.7 kg GENERAL EXAM: Patient is alert and oriented and doesn't appear to be in any acute distress HEENT: Normocephalic. Normal reaction of pupils, equal size, normal range of extraocular motion. NECK: No masses, no nuchal rigidity. CHEST: No chest wall deformity. LUNGS: Clear to auscultation.. HEART: S1 and S2 normal with no audible mumurs or gallops. Regular rhythm, femorals equal on both sides.. ABDOMEN: No hepatosplenomegaly, normal bowel sounds, no guarding or rigidity. SKIN: No rashes CENTRAL NERVOUS SYSTEM: No focal deficits. EXTREMITIES: 1+ bilateral distal pulses with evidence of bilateral venous stasis, bilateral edema Results 05/09/19 06:17 05/09/19 06:17 Cardiac Enzymes 05/08/19 05/09/19 Range/Units 22:14 06:17 Troponin I 0.034 0.184 H* (0.000-0.034) ng/mL CBC 05/09/19 Range/Units 06:17 WBC 11.0 H (3.8-10.6) k/uL RBC 2.83 L (4.30-5.90) m/uL Hgb 8.9 L (13.0-17.5) gm/dL Hct 27.5 L (39.0-53.0) % Plt Count 329 (150-450) k/uL Comprehensive Metabolic Panel 05/09/19 Range/Units 06:17 Sodium 138 (137-145) mmol/L Potassium 3.6 (3.5-5.1) mmol/L Chloride 104 (98-107) mmol/L Carbon Dioxide 25 (22-30) mmol/L BUN 54 H (9-20) mg/dL Creatinine 2.38 H (0.66-1.25) mg/dL Glucose 129 H (74-99) mg/dL Calcium 7.9 L (8.4-10.2) mg/dL Current Medications Generic Name Dose Route Start Last Admin Trade Name Freq PRN Reason Stop Dose Admin Aspirin 81 mg 05/09/19 09:00 05/09/19 09:49 Aspirin PO 81 mg DAILY [facility] Administration Doxazosin Mesylate 8 mg 05/08/19 00:00 05/08/19 21:23 Cardura PO 8 mg HS@0000 [facility] Administration Fluoxetine HCl 20 mg 05/08/19 10:00 05/09/19 09:49 Prozac PO 20 mg DAILY@1000 [facility] Administration Gabapentin 100 mg 05/07/19 18:00 05/09/19 09:48 Neurontin PO 100 mg TID@0000,1000,1800 [facility] Administration Sodium Chloride 1,000 mls @ 75 mls/hr 05/07/19 16:30 05/08/19 22:53 Saline 0.9% IV Not Given .[id number] [facility] Clindamycin Phosphate 600 mg/ 54 mls @ 50 mls/hr 05/08/19 02:00 05/09/19 03:25 Dextrose/Water IVPB 50 mls/hr Q8H [facility] Administration Ampicillin Sodium/Sulbactam 100 mls @ 200 mls/hr 05/08/19 21:00 05/08/19 22:05 Sodium 3 gm/ Sodium Chloride IVPB 200 mls/hr Q12HR [facility] Administration Isosorbide Mononitrate 30 mg 05/08/19 10:00 05/09/19 09:50 Imdur PO 30 mg DAILY@1000 [facility] Administration Labetalol HCl 300 mg 05/07/19 22:00 05/09/19 09:48 Trandate PO 300 mg BID@1000,2200 [facility] Administration Lorazepam 1 mg 05/07/19 18:00 05/09/19 09:49 Ativan PO 1 mg TID@0000,1000,1800 [facility] Administration Naloxone HCl 0.2 mg 05/07/19 16:23 Narcan IV Q2M PRN Opioid Reversal Nitroglycerin 0.4 mg 05/08/19 21:52 05/08/19 22:06 Nitrostat SUBLINGUAL 0.4 mg Q5M PRN Administration Chest Pain Oxycodone HCl 5 mg 05/07/19 18:00 05/08/19 18:00 Oxyir PO 5 mg DAILY@1800 [facility] Administration Oxycodone HCl 10 mg 05/08/19 00:00 05/09/19 00:33 Oxyir PO 10 mg DAILY@0000 [facility] Administration Polysaccharide Iron Complex 150 mg 05/09/19 12:00 Niferex-150 PO MoWeFr@1200 [facility] Ranolazine 1,000 mg 05/07/19 22:00 05/09/19 09:48 Ranexa PO 1,000 mg BID@1000,2200 [facility] Administration Rivaroxaban 15 mg 05/07/19 18:00 05/08/19 18:01 Xarelto PO 15 mg DAILY@1800 [facility] Administration Ropinirole HCl 1 mg 05/07/19 18:00 05/09/19 09:49 Requip PO 1 mg TID@0000,1000,1800 [facility] Administration Intake and Output 05/08/19 05/09/19 05/09/19 22:59 06:59 14:59 Intake Total 240 240 Output Total 176 275 Balance 64 -275 240 Intake: Oral 240 240 Output: Urine 176 275 Other: Voiding Method Urinal Urinal # Voids 1 1 Weight 117.7 kg 05/09/19 06:17 05/09/19 06:17 EKG Interpretations (text) Initial EKG shows atrial fibrillation with a slow ventricular response, subsequent EKG shows normal sinus rhythm with first-degree AV block Assessment and Plan Plan: Assessment and plan #1 acute on chronic renal failure, with an element of dehydration #2 hyperkalemia, secondary to abnormal renal function #3 history of coronary artery disease with prior stent placement #4 hypertension #5 hyperlipidemia #6 chronic lower extremity cellulitis #7 paroxysmal atrial fibrillation, currently in normal sinus rhythm #8 fever with elevated white blood cell count, possible infection #9 abnormal troponin representing acute myocardial injury with no evidence of myocardial ischemia Plan We will repeat the patient's echocardiogram with Doppler study. Discontinue the aspirin as the patient is on xarelto. DNP note has been reviewed, I agree with a documented findings and plan of care. Patient was seen and examined.
[2019-05-09] MEDS: AMPICILLIN-SULBACTAM 3 GM in SODIUM CHLORIDE 0.9% 100 ML IVPB SCH ×2 (10:40→21:27)
[2019-05-09] MEDS ORDERED: IRON POLYSACCHARIDES COMPLEX 150 MG CAP PO SCH (12:00)
[2019-05-09 13:04] VITALS: RESP 20
[2019-05-09] MEDS: RIVAROXABAN 15 MG TAB PO SCH (17:31)
--- NOTE | 2019-05-09 17:48 | P.PN ---
Subjective Progress Note Date: 05/09/19 Patient is a 74-year-old male to past medical history of coronary artery disease, peripheral vascular disease, A. fib, and chronic peripheral vascular disease who presented to the emergency department with complaints of generalized weakness and confusion. On arrival to the emergency department his vital signs were within normal limits. He was diagnosed with urinary tract infection with sepsis, hyperkalemia, and acute kidney injury. He was started on IV fluids and antibiotics. He is admitted for further monitoring. His potassium normalized and renal function improved by holding his Lasix. He had a significant improvement over a few days. He then was noted to have increasing troponin. Cardiology was consulted. Repeat echocardiogram pending. Patient seen and examined at bedside. No chest pain, no shrotenss of breath, no nausea, no vomiting, no diarrhea. Objective - Vital Signs Vital signs: Vital Signs Temp 97.8 F 05/09/19 11:30 Pulse 52 L 05/09/19 11:30 Resp 20 05/09/19 11:30 BP 122/58 05/09/19 11:30 Pulse Ox 93 L 05/09/19 11:30 Intake & Output 05/08/19 05/09/19 05/09/19 18:59 06:59 18:59 Intake Total 1370 480 Output Total 451 Balance 1370 -451 480 Weight 117.7 kg Intake: IV 500 Sodium Chloride 0.9% 1, 500 000 ml @ 75 mls/hr IV . [id number] [facility] Rx#:[id number] Intake, IV Titration 150 Amount Ampicillin-Sulbactam 3 gm 100 In Sodium Chloride 0.9% 100 ml @ 200 mls/hr IVPB Q12HR [facility] Rx#:[id number] Clindamycin 600 mg In 50 Dextrose 5% in Water 50 ml @ 50 mls/hr IVPB Q8H [facility] Rx#:[id number] Oral 720 480 Output: Urine 451 Other: Voiding Method Urinal # Voids 1 1 # Bowel Movements 1 - Exam General: ill appearing, no distress, appears at stated age Derm: b/l venous stasis changes with guillermo discoloration, warm, dry Head: atraumatic, normocephalic, symmetric Eyes: EOMI, no lid lag, anicteric sclera Mouth: no lip lesion, mucus membranes moist Cardiovascular: S1S2 reg, no murmur, positive posterior tibial pulse bilateral, Lungs: CTA bilateral, no rhonchi, no rales , no accessory muscle use Abdominal: soft, nontender to palpation, no guarding, no appreciable organomegaly Ext: no gross muscle atrophy, no edema, no contractures Neuro: CN II-XI grossly intact, no focal neuro deficits Psych: Alert, oriented, appropriate affect - Labs CBC & Chem 7: 05/09/19 06:17 05/09/19 06:17 Labs: Abnormal Lab Results - Last 24 Hours (Table) 05/09/19 05/09/19 05/09/19 Range/Units 06:17 06:17 06:17 WBC 11.0 H (3.8-10.6) k/uL RBC 2.83 L (4.30-5.90) m/uL Hgb 8.9 L (13.0-17.5) gm/dL Hct 27.5 L (39.0-53.0) % RDW 16.1 H (11.5-15.5) % Neutrophils # 9.4 H (1.3-7.7) k/uL Lymphocytes # 0.5 L (1.0-4.8) k/uL BUN 54 H (9-20) mg/dL Creatinine 2.38 H (0.66-1.25) mg/dL Glucose 129 H (74-99) mg/dL Calcium 7.9 L (8.4-10.2) mg/dL Phosphorus 4.6 H (2.5-4.5) mg/dL Magnesium 2.6 H (1.6-2.3) mg/dL Troponin I 0.184 H* (0.000-0.034) ng/mL 05/09/19 Range/Units 12:14 WBC (3.8-10.6) k/uL RBC (4.30-5.90) m/uL Hgb (13.0-17.5) gm/dL Hct (39.0-53.0) % RDW (11.5-15.5) % Neutrophils # (1.3-7.7) k/uL Lymphocytes # (1.0-4.8) k/uL BUN (9-20) mg/dL Creatinine (0.66-1.25) mg/dL Glucose (74-99) mg/dL Calcium (8.4-10.2) mg/dL Phosphorus (2.5-4.5) mg/dL Magnesium (1.6-2.3) mg/dL Troponin I 0.870 H* (0.000-0.034) ng/mL Microbiology - Last 24 Hours (Table) 05/07/19 14:40 Blood Culture - Preliminary Blood No Growth after 48 hours 05/07/19 14:04 Urine Culture - Preliminary Urine,Voided Gram Neg Bacilli Assessment and Plan Assessment: EMMA on CKD III/IV - improving - stop IVF - Continue off lasix - avoid additional nephrotoxic agents Elevated troponin - continue to monitor - ASA, imdur, on ranexa - Cardio recs: Repeat echo Gram negative bacilli UTI - continue unasyn - await culture NC anemia - chronic and at baseline - decreasing due to fluids - follow CBC - Outpatient work-up for causes of anemia Toxic metabolic encephalopathy - improving - continue supportive care - monitor closely wtih oxy use Comepnesated diastolic CHF, EF 55-60% - BB, no ACEI due to EMMA and K+ -Strict I's and O's, daily weights -Telemetry Hyperkalemia, resolved Hyponatremia, resolved Right lower extremity cellulitis, ruled out- Chronic changes Chronic A fib CAD Gout RLS DVT prophylaxis: Xarelto Discussed with: Patient, nursing Anticipated discharge: in AM Anticipated discharge place: home A total of 35 minutes was spent on the care of this complex patient more than 50% of the time was spent in counseling and care coordination.
[2019-05-10] MEDS: DOXAZOSIN 4 MG TAB PO SCH (00:01)
[2019-05-10] MEDS: LORazepam 1 MG TAB PO SCH ×2 (00:01→09:54)
[2019-05-10] MEDS: NITROGLYCERIN SL TABS 0.4 MG TAB SUBLINGUAL PRN (00:35)
[2019-05-10] MEDS: CLINDAMYCIN 600 MG in DEXTROSE 5% IN WATER 50 ML IVPB SCH ×4 (02:45→11:24)
[2019-05-10] MEDS: GABAPENTIN 100 MG CAP PO SCH ×2 (09:53)
[2019-05-10] MEDS: RANOLAZINE 500 MG TAB.ER.12H PO SCH ×2 (09:53)
[2019-05-10] MEDS: ISOSORBIDE MONONITRATE ER 60 MG TAB.ER.24H PO SCH (09:53)
[2019-05-10] MEDS: FLUoxetine HCL 20 MG CAP PO SCH (09:53)
[2019-05-10] MEDS: LABETALOL 100 MG TAB PO SCH (09:54)
[2019-05-10] MEDS: AMPICILLIN-SULBACTAM 3 GM in SODIUM CHLORIDE 0.9% 100 ML IVPB SCH (09:54)
--- NOTE | 2019-05-10 10:16 | P.PN ---
Subjective Progress Note Date: 05/10/19 This is a 74-year-old gentleman with known history of coronary artery disease, history of prior stenting performed at the [facility] in [place], patient follows her for his cardiac needs. He also has a history of paroxysmal atrial fibrillation, hyperlipidemia, hypertension, chronic kidney disease, chronic diastolic congestive heart failure, chronic bilateral lower extremity cellulitis. He presented to the hospital on this occasion with symptoms of generalized weakness and associated confusion. Patient also states that he had been noticing a significant amount of drainage from his lower extremities. His is not currently at the bedside and the patient does have some intermittent mild confusion. He denies having any chest discomfort, no difficulty in breathing. He states that he has not been eating or drinking at home much, but continued to take his twice a day doses of Lasix. An x-ray of the right foot was performed which did not reveal any acute fracture or dislocation. Chest x- ray showed cardiomegaly and chronic changes without new suspicious acute process. EKG shows atrial fibrillation with a slow ventricular response. Nonspecific ST-T wave changes. Laboratory data was reviewed, white blood cell count 16.7, hemoglobin 11 on admission, 8.9 this morning, platelet count 329. Sodium on admission 136, potassium 6.1, BUN 69, creatinine 3.2. Troponin 0.012, 0.034, 184. Positive UTI. Blood pressure 138/60 with a heart rate of 58, 95% on room air. He is afebrile this morning, patient did present with a temperature of 99.9. Echo performed in April 2018 revealed a normal left ventricular systolic function. 05/10/2019 Patient was seen and examined this morning sitting up in the chair at bedside feels significantly better today overall. And is hoping to be discharged home. Blood pressure 140/70 with a heart rate in the 50s to 80s, 92% on room air. Hemoglobin 8.9, platelet count 329, BUN 54, creatinine 2.3. We will review the patient's echocardiogram with Doppler study. Objective - Vital Signs Vital signs: Vital Signs Temp 98.2 F 05/10/19 00:00 Pulse 57 L 05/10/19 04:00 Resp 20 05/10/19 04:00 BP 142/72 05/10/19 04:00 Pulse Ox 92 L 05/10/19 04:00 Intake & Output 05/09/19 05/10/19 05/10/19 18:59 06:59 18:59 Intake Total 840 230 Output Total 125 Balance 840 -125 230 Weight 119.8 kg Intake: Oral 840 230 Output: Urine 125 Other: Voiding Method Urinal # Voids 1 1 - Exam PHYSICAL EXAMINATION: GENERAL: 74-year-old gentleman in no acute distress at the time of my examination HEENT: Head is atraumatic, normocephalic. Pupils equal, round. Sclera an icteric. Conjunctiva are clear. Mucous membranes of the mouth are moist. Neck is supple. There is no elevated jugular venous pressure. No carotid bruit is heard. HEART EXAMINATION: [Heart S1, S2 normal. No murmur or gallop heard.] CHEST EXAMINATION:[ Lungs are clear to auscultation and precussion. No chest wall tenderness is noted on palpation or with deep breathing.] ABDOMEN: [ Soft, nontender. Bowel sounds are heard. No organomegaly noted]. EXTREMITIES:[ 1+ peripheral pulses with no evidence of peripheral edema and no calf tenderness noted]. NEUROLOGIC [patient is awake, alert and oriented X3 ] . - Labs CBC & Chem 7: 05/09/19 06:17 05/09/19 06:17 Labs: Abnormal Lab Results - Last 24 Hours (Table) 05/09/19 Range/Units 12:14 Troponin I 0.870 H* (0.000-0.034) ng/mL Microbiology - Last 24 Hours (Table) 05/07/19 14:04 Urine Culture - Final Urine,Voided Klebsiella pneumoniae 05/07/19 14:40 Blood Culture - Preliminary Blood No Growth after 48 hours Assessment and Plan Plan: Assessment and plan #1 acute on chronic renal failure, with an element of dehydration #2 hyperkalemia, secondary to abnormal renal function #3 history of coronary artery disease with prior stent placement #4 hypertension #5 hyperlipidemia #6 chronic lower extremity cellulitis #7 paroxysmal atrial fibrillation, currently in normal sinus rhythm #8 fever with elevated white blood cell count, possible infection #9 abnormal troponin representing acute myocardial injury with no evidence of myocardial ischemia Plan We will review the patient's echocardiogram with Doppler study. DNP note has been reviewed, I agree with a documented findings and plan of care. Patient was seen and examined.
[2019-05-10 11:38] VITALS: BP 130/64; PULSE 58; TEMP 98
--- NOTE | 2019-05-10 14:40 | P.DS ---
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 fib, and chronic peripheral vascular disease who presented to the emergency department with complaints of generalized weakness and confusion. On arrival to the emergency department his vital signs were within normal limits. He was diagnosed with urinary tract infection with sepsis, hyperkalemia, and acute kidney injury. He was started on IV fluids and antibiotics. He was admitted for further monitoring. His potassium normalized and renal function improved by holding his Lasix. He had a significant improvement over a few days. He was found to have a UTI that was positive for klebsiella. He then was noted to have increasing troponin. Cardiology was consulted. Troponin leveled off at less than one and began improving. Cardio felt this was reflective of his illiness and EMMA and was not refelctive of an acute ischemic events. Echocardiogram was taken but results pending at this time of discharge. Patient was requesting to be discharged home, he knowns echo is not resulted. He was determined stable for discharge home. UTI- Klebseilla and placed on Vantin Lasix Decreased to 40 mg once daily, repeat BMP in 3-5 days Follow up with Dr. Jerod Braun in 3-5 days and Cardiology in 2 weeks. Patient seen and examined at bedside.Feeling well, no chest pain, SOB, nausea, vomiting, or diarrhea. Vital signs reviewed and stable. General: non toxic, no distress, appears at stated age Derm: Dark and dusky appearance, + bullae warm, dry Head: atraumatic, normocephalic, symmetric Eyes: EOMI, no lid lag, anicteric sclera Mouth: no lip lesion, mucus membranes moist Cardiovascular: S1S2 reg, no murmur, positive posterior tibial pulse bilateral, Lungs: Decreased bs bilateral, no rhonchi, no rales , no accessory muscle use Abdominal: soft, nontender to palpation, no guarding, no appreciable organomegaly Ext: no gross muscle atrophy, 2+ edema, no contractures Neuro: CN II-XI grossly intact, no focal neuro deficits Psych: Alert, oriented, appropriate affect A total of 35 minutes of time were spent preparing this complex discharge summary . Patient Condition at Discharge: Stable Plan - Discharge Summary Discharge Rx Participant: No New Discharge Prescriptions: New Furosemide [Lasix] 40 mg PO DAILY #10 tablet Cefpodoxime Proxetil [Vantin] 200 mg PO DAILY #3 tab Continue FLUoxetine HCL [PROzac] 20 mg PO DAILY@1000 Terazosin [Hytrin] 8 mg PO HS@0000 oxyCODONE HCL [Roxicodone] 5 mg PO DAILY@1800 Ranolazine [Ranexa] 1,000 mg PO BID@1000,2200 LORazepam [Ativan] 1 mg PO TID@0000,1000,1800 Isosorbide Mononitrate ER [Imdur] 30 mg PO DAILY@1000 Labetalol HCl [Trandate] 300 mg PO BID@1000,2200 Gabapentin [Neurontin] 100 mg PO TID@0000,1000,1800 oxyCODONE HCL [Roxicodone] 10 mg PO DAILY@0000 Rivaroxaban [Xarelto] 15 mg PO DAILY@1800 rOPINIRole HCL [Requip] 1 mg PO TID@0000,1000,1800 Nitroglycerin Sl Tabs [Nitrostat] 0.4 mg SUBLINGUAL Q5M PRN PRN Reason: Chest Pain Iron Polysaccharide Complex [Myferon 150] 150 mg PO MOWEFR Discontinued Furosemide [Lasix] 60 mg PO BID@1000,1800 Discharge Medication List FLUoxetine HCL [PROzac] 20 mg PO DAILY@1000 07/03/13 [History] Terazosin [Hytrin] 8 mg PO HS@0000 12/25/13 [History] LORazepam [Ativan] 1 mg PO TID@0000,1000,1800 04/27/17 [History] Ranolazine [Ranexa] 1,000 mg PO BID@1000,2200 04/27/17 [History] oxyCODONE HCL [Roxicodone] 5 mg PO DAILY@1800 04/27/17 [History] Isosorbide Mononitrate ER [Imdur] 30 mg PO DAILY@1000 06/26/18 [History] Labetalol HCl [Trandate] 300 mg PO BID@1000,2200 11/16/18 [History] Gabapentin [Neurontin] 100 mg PO TID@0000,1000,1800 05/07/19 [History] Iron Polysaccharide Complex [Myferon 150] 150 mg PO MOWEFR 05/07/19 [History] Nitroglycerin Sl Tabs [Nitrostat] 0.4 mg SUBLINGUAL Q5M PRN 05/07/19 [History] Rivaroxaban [Xarelto] 15 mg PO DAILY@1800 05/07/19 [History] oxyCODONE HCL [Roxicodone] 10 mg PO DAILY@0000 05/07/19 [History] rOPINIRole HCL [Requip] 1 mg PO TID@0000,1000,1800 05/07/19 [History] Cefpodoxime Proxetil [Vantin] 200 mg PO DAILY #3 tab 05/10/19 [Rx] Furosemide [Lasix] 40 mg PO DAILY #10 tablet 05/10/19 [Rx] Follow up Appointment(s)/Referral(s): Jerod Braun MD [Primary Care Provider] - 1-2 days [facility], [NON-STAFF] - Ambulatory/Diagnostic Orders: Basic Metabolic Panel [LAB.AMB] Location: None Selected Activity/Diet/Wound Care/Special Instructions: Activity: as tolerated Diet: heart healthy Special Instructions: Repeat blood work when you see Dr. 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
--- NOTE | 2019-05-11 09:40 | ECHOF ---
Referral Reason:CHF< positive troponin MEASUREMENTS -------- HEIGHT: 175.3 cm WEIGHT: 119.7 kg BP: 142/72 RVIDd: 5.0 cm (< 3.3) IVSd: 1.8 cm (0.6 - 1.1) LVIDd: 4.9 cm (3.9 - 5.3) LVPWd: 1.9 cm (0.6 - 1.1) IVSs: 1.8 cm LVIDs: 3.4 cm LVPWs: 2.0 cm LAESV Index (A-L): 54.67 ml/m Ao Diam: 3.3 cm (2.0 - 3.7) AV Cusp: 2.1 cm (1.5 - 2.6) LA Diam: 6.3 cm (2.7 - 3.8) MV EXCURSION: 18.547 mm (> 18.000) MV EF SLOPE: 56 mm/s (70 - 150) EPSS: 0.4 cm MV E Renny: 1.27 m/s MV DecT: 150 ms MV A Renny: 0.62 m/s MV E/A Ratio: 2.06 AR PHT: 634 ms RAP: 5.00 mmHg RVSP: 62.17 mmHg FINDINGS -------- Sinus rhythm. This was a technically adequate study. The left ventricular size is normal. There is moderate concentric left ventricular hypertrophy. O verall left ventricular systolic function is normal with, an EF between 55 - 60 %. Mitral Doppler i nflow pattern suggests diastolic filling abnormality 16.77. The right ventricle is severely enlarged. The right ventricular systolic function is moderately imp aired. LA is severely dilated >40 ml/m2 The right atrium is moderately enlarged. Interatrial and interventricular septum intact. There is mild aortic valve sclerosis. There is mild aortic regurgitation. Mild mitral annular calcification present. Nebi-[id number] mitral regurgitation is present. Moderate tricuspid regurgitation present. There is severe pulmonary hypertension. The right ventr icular systolic pressure, as measured by Doppler, is 62.17mmHg. There is no pulmonic regurgitation present. The aortic root size is normal. IVC Not well visulized. There is no pericardial effusion. CONCLUSIONS -------- 1. Sinus rhythm. 2. The left ventricular size is normal. 3. There is moderate concentric left ventricular hypertrophy. 4. Overall left ventricular systolic function is normal with, an EF between 55 - 60 %. 5. Mitral Doppler inflow pattern suggest diastolic filling abnormality 16.77. 6. The right ventricle is severely enlarged. 7. The right ventricular systolic function is moderately impaired. 8. LA is severely dilated >40 ml/m2 9. The right atrium is moderately enlarged. 10. There is mild aortic regurgitation. 11. Mild mitral annular calcification present. 12. Owen-tq-ajcymuhr mitral regurgitation is present. 13. Moderate tricuspid regurgitation present. 14. There is severe pulmonary hypertension. 15. There is no pulmonic regurgitation present. 16. IVC Not well visulized. 17. There is no pericardial effusion. ROLLING CHAIR PUSHER: Sherin Osman RDCS
--- NOTE | 2019-05-14 02:44 | CDI ---
Documentation Clarification Form Date: 05/14/2019 From: Filiberto Car Phone: If you have a question about this query, please contact Whitney Collado, Manager Payment at [phone] between 8am and 5pm. Admit Date: 05/07/19 Discharge Date: 05/10/19 Patient Name: Jaime Moreno Visit Number: [id number] ATTENTION: The Clinical Documentation Specialists (CDI) and [facility] Coding Staff appreciate your assistance in clarifying documentation. Please respond to the clarification below the line at the bottom and electronically sign. The CDI & [facility] Coding staff will review the response and follow-up if needed. Please note: Queries are made part of the Legal Health Record. If you have any questions, please contact the author of this message via ITS. Dear Valerie John, The patient presented with generalized weakness and confusion. History/Risk Factors: Hyperlipidemia,Dehydration,CKD 4, UTI. WBC : 15.2 Lactic acid: Plasma Lactic Acid Harman 1.7 Blood cultures: [id number] Vitals signs on admission: Temperature 99.4 F Pulse Rate 62 52 L Respiratory 16 18 Treatment: Antibiotics , IV fluids UTI- Klebseilla and placed on Vantin , Toxic metabolic encephalopathy Other: In DS note Stated as "He was diagnosed with urinary tract infection with sepsis, hyperkalemia, and acute kidney injury.He was started on IV fluids and antibiotics." In your professional opinion, please clarify if these findings signify one of the following conditions, Condition Sepsis ruled out SIRS, without underlying infectious process Sepsis Severe Sepsis Septic Shock Other, please specify Unable to determine Sepsis MTDD
== END 2019-05-10 16:10 | disposition home or self-care (01) | DRG 871 ==
LOC: EC 13:45 → 3SCARD 16:23
PROVIDERS: ADMIT Family Medicine; ATTEND Family Medicine
DX: A41.9 Sepsis, unspecified organism (principal); G92 Toxic encephalopathy; N17.9 Acute kidney failure, unspecified; E87.1 Hypo-osmolality and hyponatremia; I13.0 Hypertensive heart and chronic kidney disease with heart failure and stage 1 through stage 4 chronic kidney disease, or unspecified chronic kidney disease; L03.116 Cellulitis of left lower limb; L03.115 Cellulitis of right lower limb; I48.19 Other persistent atrial fibrillation; I50.32 Chronic diastolic (congestive) heart failure; N39.0 Urinary tract infection, site not specified; N18.4 Chronic kidney disease, stage 4 (severe); B96.1 Klebsiella pneumoniae [K. pneumoniae] as the cause of diseases classified elsewhere; D63.8 Anemia in other chronic diseases classified elsewhere; E78.5 Hyperlipidemia, unspecified; M19.90 Unspecified osteoarthritis, unspecified site; I73.9 Peripheral vascular disease, unspecified; R62.7 Adult failure to thrive; M10.9 Gout, unspecified; I87.8 Other specified disorders of veins; E86.0 Dehydration; E87.5 Hyperkalemia; G25.81 Restless legs syndrome; I25.10 Atherosclerotic heart disease of native coronary artery without angina pectoris; I25.2 Old myocardial infarction; Z95.5 Presence of coronary angioplasty implant and graft; Z82.49 Family history of ischemic heart disease and other diseases of the circulatory system; Z80.3 Family history of malignant neoplasm of breast; Z79.899 Other long term (current) drug therapy; Z79.01 Long term (current) use of anticoagulants; Z88.8 Allergy status to other drugs, medicaments and biological substances; Z90.89 Acquired absence of other organs; Z98.890 Other specified postprocedural states
CPT/HCPCS: 36415; 71046; 80048; 80053; 81001; 82550; 83605; 83735; 84100; 84132; 84484; 85025; 85610; 85730; 87040; 87077; 87086; 87186; 93005; 93306; 94640; 96365; 96367; 96375; 96376; 99291

== ENCOUNTER 2019-08-12 19:54 | Inpatient (IN) | payer OTHER, MEDICARE ==
[2019-08-12 20:49] LABS: Basophils % (A) 0 %; Eosinophils # (A) 0.3 k/uL (0-0.7); Eosinophils % (A) 3 %; HCT 35.6 % (39.0-53.0); HGB 11.9 gm/dL (13.0-17.5); Lymphocytes # (A) 0.5 k/uL (1.0-4.8); Lymphocytes % (A) 5 %; MCH 33.1 pg (25.0-35.0); MCHC 33.3 g/dL (31.0-37.0); MCV 99.4 fL (80.0-100.0); Mean Platelet Volume 6.9; Monocytes # (A) 0.7 k/uL (0-1.0); Monocytes % (A) 7 %; Neutrophils # (A) 7.1 k/uL (1.3-7.7); Neutrophils % (A) 80 %; Platelet Count 439 k/uL (150-450); RBC 3.58 m/uL (4.30-5.90); RDW 13.6 % (11.5-15.5); WBC 8.8 k/uL (3.8-10.6)
--- NOTE | 2019-08-12 20:53 | XR ---
EXAMINATION TYPE: XR chest 2V DATE OF EXAM: 08/12/2019 COMPARISON: 05/07/2019 HISTORY: Weakness TECHNIQUE: 2 views FINDINGS: There is no heart failure nor confluent pneumonic infiltrate. Thoracic aorta is atheromatou s. There are chest leads. There is no evidence of pleural effusion. Bony thorax is intact. IMPRESSION: No active cardiopulmonary disease. Inspiration slightly decreased compared to last exam.
--- NOTE | 2019-08-12 21:04 | ED ---
General Adult HPI - General Chief complaint: Weakness Stated complaint: Weakness Time Seen by Provider: 08/12/19 20:00 Source: patient, EMS Mode of arrival: EMS Limitations: physical limitation - History of Present Illness Initial comments: 74-year-old male patient presents to the emergency department today for evaluation of generalized weakness and increased sleeping. states he has been sleeping more than usual over the last few days. Patient states that he has been feeling lightheaded and woozy. Denies any other symptoms. He denies any recent falls or head injury. Denies chest pain, shortness of breath, nausea, or vomiting. States he has been eating and drinking without difficulty. Denies any hematuria, dysuria, urinary frequency, urinary urgency. Denies fever or chills. Patient denies any recent rash, cough, abdominal pain, diar gaby, constipation, back pain, numbness, tingling, headache, visual changes, or any other complaints. - Related Data Home Medications Medication Instructions Recorded Confirmed FLUoxetine HCL [PROzac] 20 mg PO DAILY@1000 07/03/13 08/12/19 Terazosin [Hytrin] 8 mg PO HS@0000 12/25/13 08/12/19 LORazepam [Ativan] 1 mg PO TID@0000,1000,1700 04/27/17 08/12/19 Ranolazine [Ranexa] 1,000 mg PO BID@1000,219904/27/17 08/12/19 oxyCODONE HCL [Roxicodone] 5 mg PO BID@1000,1700 04/27/17 08/12/19 Isosorbide Mononitrate ER [Imdur] 30 mg PO DAILY@1000 06/26/18 08/12/19 Labetalol HCl [Trandate] 300 mg PO BID@1000,0 11/16/18 08/12/19 Gabapentin [Neurontin] 100 mg PO TID@0000,1000,1700 05/07/19 08/12/19 Iron Polysaccharide Complex 150 mg PO MOWEFR 05/07/19 08/12/19 [Myferon 150] Nitroglycerin Sl Tabs [Nitrostat] 0.4 mg SUBLINGUAL Q5M PRN 05/07/19 08/12/19 Rivaroxaban [Xarelto] 15 mg PO DAILY@1700 05/07/19 08/12/19 oxyCODONE HCL [Roxicodone] 10 mg PO DAILY@0000 05/07/19 08/12/19 rOPINIRole HCL [Requip] 1 mg PO TID@0000,1000,1700 05/07/19 08/12/19 Folic Acid 1 mg PO HS@2200 08/12/19 08/12/19 Furosemide [Lasix] 40 mg PO BID@1000,1700 08/12/19 08/12/19 Polyethylene Glycol 3350 [Miralax] 17 gm PO DAILY 08/12/19 08/12/19 Allergies Allergy/AdvReac Type Severity Reaction Status Date / Time pravastatin Allergy Rash/Hives Verified 08/12/19 22:43 amlodipine AdvReac CONSTIPATIO Verified 08/12/19 22:43 N atenolol AdvReac MALE ED Verified 08/12/19 22:43 hydrochlorothiazide AdvReac RENAL Verified 08/12/19 22:43 IMPAIRMENT Review of Systems ROS Statement: Those systems with pertinent positive or pertinent negative responses have been documented in the HPI. ROS Other: All systems not noted in ROS Statement are negative. Past Medical History Past Medical History: Atrial Fibrillation, Coronary Artery Disease (CAD), Chest Pain / Angina, Heart Failure, Hyperlipidemia, Hypertension, Myocardial Infarction ([place]), Osteoarthritis (OA), Renal Disease Additional Past Medical History / Comment(s): ? 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 pt stated has slept in recliner chair for past 10 years, uti ecoli 2013. gout in past, djd, lumbar disc disease. restless leg , leg cellulitis/swelling, falls/ Last Myocardial Infarction Date:: 2009 History of Any Multi-Drug Resistant Organisms: None Reported Date of last positivie culture/infection: 04/02/2018 MDRO Source:: leg wound Past Surgical History: Heart Catheterization With Stent, Tonsillectomy Additional Past Surgical History / Comment(s): [id number] stents, rt hand sx to repair severed lig/tendons(age 20) has limited use of index finger Past Anesthesia/Blood Transfusion Reactions: No Reported Reaction Additional Past Anesthesia/Blood Transfusion Reaction / Comment(s): clausterphobia Date of Last Stent Placement:: 2009 Past Psychological History: No Psychological Hx Reported Smoking Status: Never smoker Past Alcohol Use History: None Reported Past Drug Use History: None Reported - Past Family History Mother Family Medical History: Cancer Additional Family Medical History / Comment(s): breast cancer, heart problems was on warfarin(pt stated she bled out) Father Family Medical History: Coronary Artery Disease (CAD), Myocardial Infarction ([place]) Additional Family Medical History / Comment(s): Father had his 1st VA in his 50s and then from his 2nd VA at the age of 74yrs. General Exam Limitations: physical limitation General appearance: alert, in no apparent distress, other (This is a well- developed, well-nourished adult female patient in no acute distress. Vital signs upon presentation are temperature 98.1F, pulse 45, respirations 16, blood pressure 147/52, pulse ox 96% on room air.) Eye exam: Present: normal appearance ENT exam: Present: normal exam, normal oropharynx, mucous membranes moist Respiratory exam: Present: normal lung sounds bilaterally. Absent: respiratory distress, wheezes, rales, rhonchi, stridor Cardiovascular Exam: Present: regular rate, normal rhythm, normal heart sounds. Absent: systolic murmur, diastolic murmur, rubs, gallop, clicks GI/Abdominal exam: Present: soft, normal bowel sounds. Absent: distended, tenderness, guarding, rebound, rigid Neurological exam: Present: alert, oriented X3, CN II-XII intact Psychiatric exam: Present: normal affect, normal mood Skin exam: Present: warm, dry, intact, normal color. Absent: rash Course Vital Signs 08/12/19 08/12/19 08/12/19 19:57 21:00 22:00 Temperature 98.1 F Pulse Rate 45 L 44 L 54 L Respiratory 16 18 16 Rate Blood Pressure 147/52 O2 Sat by Pulse 96 96 Oximetry 08/12/19 08/12/19 08/12/19 22:10 22:22 22:57 Temperature Pulse Rate 68 70 56 L Respiratory 18 18 16 Rate Blood Pressure 167/67 O2 Sat by Pulse 96 Oximetry 08/13/19 00:00 Temperature Pulse Rate 63 Respiratory 18 Rate Blood Pressure 142/53 O2 Sat by Pulse 95 Oximetry EKG Findings - EKG Comments: EKG Findings:: EKG obtained at 2004 shows marked sinus bradycardia with a first- degree AV block. Ventricular rate is 43, P return normal 304, QR quaker 110, QTC 508, QTC 429. No evidence of ST elevation or depression. Medical Decision Making - Medical Decision Making 74-year-old male patient presents to the emergency department today for evaluation of weakness, increased sleeping, and lightheadedness. Physical examination is relatively unremarkable. He is neurologically intact with no focal deficits. Labs reviewed and do reveal elevated BUN and creatinine which is consistent with his chronic renal failure. Also had elevated potassium of 6.8 and elevated magnesium at 3.1. Patient was given hyperkalemia protocol medication. EKGs showed initially sinus bradycardia and sinus rhythm both with first-degree AV block. No evidence of ST elevation or depression. Patient did begin having some chest pain while here, EKG was repeated and showed no ST elevation or depression. We did send an additional troponin which was negative. Chest pain did resolve without medication or intervention. Urinalysis showed evidence for infection so we did start Rocephin. Urine was sent for culture. He'll be admitted to the hospital for repeat labs and further monitoring. - Lab Data Result diagrams: 08/12/19 20:28 08/12/19 21:47 Lab Results 08/12/19 08/12/19 08/12/19 Range/Units 20:28 20:32 20:32 WBC 8.8 (3.8-10.6) k/uL RBC 3.58 L (4.30-5.90) m/uL Hgb 11.9 L (13.0-17.5) gm/dL Hct 35.6 L (39.0-53.0) % MCV 99.4 (80.0-100.0) fL MCH 33.1 (25.0-35.0) pg MCHC 33.3 (31.0-37.0) g/dL RDW 13.6 (11.5-15.5) % Plt Count 439 (150-450) k/uL Neutrophils % 80 % Lymphocytes % 5 % Monocytes % 7 % Eosinophils % 3 % Basophils % 0 % Neutrophils # 7.1 (1.3-7.7) k/uL Lymphocytes # 0.5 L (1.0-4.8) k/uL Monocytes # 0.7 (0-1.0) k/uL Eosinophils # 0.3 (0-0.7) k/uL Basophils # 0.0 (0-0.2) k/uL PT 12.8 H (9.0-12.0) sec INR 1.3 H (<1.2) APTT 35.9 H (22.0-30.0) sec Sodium 128 L (137-145) mmol/L Potassium 6.8 H* (3.5-5.1) mmol/L Chloride 96 L (98-107) mmol/L Carbon Dioxide 19 L (22-30) mmol/L Anion Gap 13 mmol/L BUN 73 H (9-20) mg/dL Creatinine 3.15 H (0.66-1.25) mg/dL Est GFR (CKD-EPI)AfAm 21 (>60 ml/min/1.73 sqM) Est GFR (CKD-EPI)NonAf 19 (>60 ml/min/1.73 sqM) Glucose 125 H (74-99) mg/dL Plasma Lactic Acid [place] (0.7-2.0) mmol/L Calcium 8.9 (8.4-10.2) mg/dL Magnesium 3.1 H (1.6-2.3) mg/dL Total Bilirubin 0.5 (0.2-1.3) mg/dL AST 23 (17-59) U/L ALT 12 (4-49) U/L Alkaline Phosphatase 79 (38-126) U/L Troponin I (0.000-0.034) ng/mL Total Protein 7.5 (6.3-8.2) g/dL Albumin 3.9 (3.5-5.0) g/dL Urine Color Urine Appearance (Clear) Urine pH (5.0-8.0) Ur Specific [place] (1.001-1.035) Urine Protein (Negative) Urine Glucose (UA) (Negative) Urine Ketones (Negative) Urine Blood (Negative) Urine Nitrite (Negative) Urine Bilirubin (Negative) Urine Urobilinogen (<2.0) mg/dL Ur Leukocyte Esterase (Negative) Urine RBC (0-5) /hpf Urine WBC (0-5) /hpf Urine WBC Clumps (None) /hpf Ur Squamous Epith Cells (0-4) /hpf Urine Bacteria (None) /hpf Urine Mucus (None) /hpf 08/12/19 08/12/19 08/12/19 Range/Units 20:32 20:32 21:25 WBC (3.8-10.6) k/uL RBC (4.30-5.90) m/uL Hgb (13.0-17.5) gm/dL Hct (39.0-53.0) % MCV (80.0-100.0) fL MCH (25.0-35.0) pg MCHC (31.0-37.0) g/dL RDW (11.5-15.5) % Plt Count (150-450) k/uL Neutrophils % % Lymphocytes % % Monocytes % % Eosinophils % % Basophils % % Neutrophils # (1.3-7.7) k/uL Lymphocytes # (1.0-4.8) k/uL Monocytes # (0-1.0) k/uL Eosinophils # (0-0.7) k/uL Basophils # (0-0.2) k/uL PT (9.0-12.0) sec INR (<1.2) APTT (22.0-30.0) sec Sodium (137-145) mmol/L Potassium (3.5-5.1) mmol/L Chloride (98-107) mmol/L Carbon Dioxide (22-30) mmol/L Anion Gap mmol/L BUN (9-20) mg/dL Creatinine (0.66-1.25) mg/dL Est GFR (CKD-EPI)AfAm (>60 ml/min/1.73 sqM) Est GFR (CKD-EPI)NonAf (>60 ml/min/1.73 sqM) Glucose (74-99) mg/dL Plasma Lactic Acid [place] 1.1 (0.7-2.0) mmol/L Calcium (8.4-10.2) mg/dL Magnesium (1.6-2.3) mg/dL Total Bilirubin (0.2-1.3) mg/dL AST (17-59) U/L ALT (4-49) U/L Alkaline Phosphatase (38-126) U/L Troponin I <0.012 (0.000-0.034) ng/mL Total Protein (6.3-8.2) g/dL Albumin (3.5-5.0) g/dL Urine Color Yellow Urine Appearance Cloudy (Clear) Urine pH 5.0 (5.0-8.0) Ur Specific [place] 1.010 (1.001-1.035) Urine Protein Negative (Negative) Urine Glucose (UA) Negative (Negative) Urine Ketones Negative (Negative) Urine Blood Negative (Negative) Urine Nitrite Positive (Negative) Urine Bilirubin Negative (Negative) Urine Urobilinogen <2.0 (<2.0) mg/dL Ur Leukocyte Esterase Large H (Negative) Urine RBC 1 (0-5) /hpf Urine WBC 67 H (0-5) /hpf Urine WBC Clumps Moderate H (None) /hpf Ur Squamous Epith Cells <1 (0-4) /hpf Urine Bacteria Moderate H (None) /hpf Urine Mucus Rare H (None) /hpf 08/12/19 Range/Units 21:47 WBC (3.8-10.6) k/uL RBC (4.30-5.90) m/uL Hgb (13.0-17.5) gm/dL Hct (39.0-53.0) % MCV (80.0-100.0) fL MCH (25.0-35.0) pg MCHC (31.0-37.0) g/dL RDW (11.5-15.5) % Plt Count (150-450) k/uL Neutrophils % % Lymphocytes % % Monocytes % % Eosinophils % % Basophils % % Neutrophils # (1.3-7.7) k/uL Lymphocytes # (1.0-4.8) k/uL Monocytes # (0-1.0) k/uL Eosinophils # (0-0.7) k/uL Basophils # (0-0.2) k/uL PT (9.0-12.0) sec INR (<1.2) APTT (22.0-30.0) sec Sodium (137-145) mmol/L Potassium 6.6 H* (3.5-5.1) mmol/L Chloride (98-107) mmol/L Carbon Dioxide (22-30) mmol/L Anion Gap mmol/L BUN (9-20) mg/dL Creatinine (0.66-1.25) mg/dL Est GFR (CKD-EPI)AfAm (>60 ml/min/1.73 sqM) Est GFR (CKD-EPI)NonAf (>60 ml/min/1.73 sqM) Glucose (74-99) mg/dL Plasma Lactic Acid [place] (0.7-2.0) mmol/L Calcium (8.4-10.2) mg/dL Magnesium (1.6-2.3) mg/dL Total Bilirubin (0.2-1.3) mg/dL AST (17-59) U/L ALT (4-49) U/L Alkaline Phosphatase (38-126) U/L Troponin I (0.000-0.034) ng/mL Total Protein (6.3-8.2) g/dL Albumin (3.5-5.0) g/dL Urine Color Urine Appearance (Clear) Urine pH (5.0-8.0) Ur Specific [place] (1.001-1.035) Urine Protein (Negative) Urine Glucose (UA) (Negative) Urine Ketones (Negative) Urine Blood (Negative) Urine Nitrite (Negative) Urine Bilirubin (Negative) Urine Urobilinogen (<2.0) mg/dL Ur Leukocyte Esterase (Negative) Urine RBC (0-5) /hpf Urine WBC (0-5) /hpf Urine WBC Clumps (None) /hpf Ur Squamous Epith Cells (0-4) /hpf Urine Bacteria (None) /hpf Urine Mucus (None) /hpf - EKG Data -: EKG Interpreted by Nd EKG Comments: EKG obtained at 2259 shows sinus rhythm with marked sinus arrhythmia and first- degree AV block. Ventricular rate is 61, AL interval 390, QRS duration 108, QT 448, QTC 450. No evidence of ST elevation or depression. There is now flipped T wave in AVL - Radiology Data Radiology results: report reviewed, image reviewed Two-view x-ray of the chest was obtained. Report was reviewed in its entirety. Impression by Dr. Taveras shows no active cardiopulmonary disease. Inspirations any decreased compared to last exam. Disposition Clinical Impression: Urinary tract infection, Chest pain, Hyperkalemia, Hypermagnesemia Disposition: ADMITTED IP TO THIS [facility] Condition: Serious Referrals: Jerod Braun MD [Primary Care Provider] - 1-2 days Decision to Admit Reason: Admit from EC Decision Date: 08/12/19 Decision Time: 23:29
[2019-08-12 21:17] LABS: INR 1.3 (<1.2); Partial Thromboplastin Time 35.9 sec (22.0-30.0); Prothrombin Time 12.8 sec (9.0-12.0)
[2019-08-12 21:24] LABS: Albumin 3.9 g/dL (3.5-5.0); Calcium 8.9 mg/dL (8.4-10.2); Magnesium 3.1 mg/dL (1.6-2.3); Total Bilirubin 0.5 mg/dL (0.2-1.3); Total Protein 7.5 g/dL (6.3-8.2)
[2019-08-12 21:28] LABS: Potassium 6.8 mmol/L (3.5-5.1)
[2019-08-12] MEDS ORDERED: DEXTROSE 50% SYRINGE 50 ML IVP STA (21:41)
[2019-08-12] MEDS ORDERED: CALCIUM CHLORIDE 100 MG/ML 10 ML SYRINGE IVP STA (21:41)
[2019-08-12] MEDS ORDERED: INSULIN REGULAR 100 UNIT/ML VIAL IV ONE (21:41)
[2019-08-12] MEDS ORDERED: ALBUTEROL NEB (CONC) 2.5 MG/0.5 ML INHALATION STA (21:42)
[2019-08-12] MEDS ORDERED: ALBUTEROL NEBULIZED 2.5 MG/3 ML INHALATION STA (21:42)
[2019-08-12] MEDS ORDERED: SODIUM CHLORIDE 0.9% 500 ML 500 ML IV ONE (21:43)
[2019-08-12 21:46] LABS: Appearance,Urine Cloudy (Clear); Bacteria,Urine Moderate /hpf; Bilirubin,Urine Negative (Negative); Blood,Urine Negative (Negative); Color,Urine Yellow; Glucose,Urine (UA) Negative (Negative); Ketones,Urine Negative (Negative); Leukocyte Esterase,Urine Large (Negative); Mucus,Urine Rare /hpf; Nitrite,Urine Positive (Negative); Protein,Urine Negative (Negative); RBC,Urine 1 /hpf (0-5); Squamous Epithelial Cell,Urine <1 /hpf (0-4); Urobilinogen,Urine <2.0 mg/dL (<2.0); WBC,Urine 67 /hpf (0-5)
[2019-08-12] MEDS ORDERED: NITROGLYCERIN SL TABS 0.4 MG TAB SUBLINGUAL STA (23:09)
[2019-08-12] MEDS ORDERED: NALOXONE 0.4 MG/ML 1 ML VIAL IV PRN (23:29)
[2019-08-12] MEDS: SODIUM CHLORIDE 0.9% 1,000 ML IV SCH (23:53)
--- NOTE | 2019-08-13 04:03 | P.HPIM ---
History of Present Illness H&P Date: 08/13/19 The patient was seen and examined in the ED at 2 AM on 08/12. The patient is a 74-year-old male with a PMH of hypertension, CAD, A. fib on Xarelto, bilateral lower extremity lymphedema, and diastolic CHF who was brought in the ED by family due to generalized weakness and confusion. Attempted to con tact the via the number provided ([phone]) with no answer. History thereby supplemented by the chart and the ED provider. The patient notes that over the past 3-4 days, he has been feeling more sleepy and lethargic. As per the documentation, the patient's had reported that he had been sleeping excessively during the above time and had also complained of some lightheadedness and dizziness. The patient also notes that during this time, he has not been eating or drinking much since he has been feeling very lethargic and has not had much of an appetite. The patient however denies any additional complaints. He denied dysuria, urinary frequency, hematuria, abdominal pain, fever, chills, nausea, vomiting, chest pain, or shortness of breath. In the ED, the patient's chest x-ray was unremarkable with EKG showing sinus rhythm with sinus arrhythmia and first-degree AV block with left axis deviation at 61 bpm. Laboratory evaluation had revealed a WBC count of 8.8, hemoglobin 11.9, sodium 128, potassium 6.6, chloride 96, BUN 73, creatinine 3.15, troponin less than 0.012, with UA consistent with UTI. Review of Systems Pertinent positives and negatives as discussed in HPI, a complete review of systems was performed and all other systems are negative. Past Medical History Past Medical History: Atrial Fibrillation, Coronary Artery Disease (CAD), Chest Pain / Angina, Heart Failure, Hyperlipidemia, Hypertension, Myocardial Infarction ([place]), Osteoarthritis (OA), Renal Disease Additional Past Medical History / Comment(s): ? 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 pt stated has slept in recliner chair for past 10 years, uti ecoli 2013. gout in past, djd, lumbar disc disease. restless leg , leg cellulitis/swelling, falls/ Last Myocardial Infarction Date:: 2009 History of Any Multi-Drug Resistant Organisms: None Reported Date of last positivie culture/infection: 04/02/2018 MDRO Source:: leg wound Past Surgical History: Heart Catheterization With Stent, Tonsillectomy Additional Past Surgical History / Comment(s): [id number] stents, rt hand sx to repair severed lig/tendons(age 20) has limited use of index finger Past Anesthesia/Blood Transfusion Reactions: No Reported Reaction Additional Past Anesthesia/Blood Transfusion Reaction / Comment(s): clausterphobia Date of Last Stent Placement:: 2009 Past Psychological History: No Psychological Hx Reported Smoking Status: Never smoker Past Alcohol Use History: None Reported Past Drug Use History: None Reported - Past Family History Mother Family Medical History: Cancer Additional Family Medical History / Comment(s): breast cancer, heart problems was on warfarin(pt stated she bled out) Father Family Medical History: Coronary Artery Disease (CAD), Myocardial Infarction ([place]) Additional Family Medical History / Comment(s): Father had his 1st [place] in his 50s and then from his 2nd NE at the age of 74yrs. Medications and Allergies Home Medications Medication Instructions Recorded Confirmed Type FLUoxetine HCL [PROzac] 20 mg PO DAILY@1000 07/03/13 08/12/19 History Terazosin [Hytrin] 8 mg PO HS@0000 12/25/13 08/12/19 History LORazepam [Ativan] 1 mg PO TID@0000,1000,1700 04/27/17 08/12/19 History Ranolazine [Ranexa] 1,000 mg PO BID@1000,2200 04/27/17 08/12/19 History oxyCODONE HCL [Roxicodone] 5 mg PO BID@1000,1700 04/27/17 08/12/19 History Isosorbide Mononitrate ER [Imdur] 30 mg PO DAILY@1000 06/26/18 08/12/19 History Labetalol HCl [Trandate] 300 mg PO BID@1000,2200 11/16/18 08/12/19 History Gabapentin [Neurontin] 100 mg PO TID@0000,1000,1700 05/07/19 08/12/19 History Iron Polysaccharide Complex 150 mg PO MOWEFR 05/07/19 08/12/19 History [Myferon 150] Nitroglycerin Sl Tabs [Nitrostat] 0.4 mg SUBLINGUAL Q5M PRN 05/07/19 08/12/19 History Rivaroxaban [Xarelto] 15 mg PO DAILY@1700 05/07/19 08/12/19 History oxyCODONE HCL [Roxicodone] 10 mg PO DAILY@0000 05/07/19 08/12/19 History rOPINIRole HCL [Requip] 1 mg PO TID@0000,1000,1700 05/07/19 08/12/19 History Folic Acid 1 mg PO HS@2200 08/12/19 08/12/19 History Furosemide [Lasix] 40 mg PO BID@1000,1700 08/12/19 08/12/19 History Polyethylene Glycol 3350 [Miralax] 17 gm PO DAILY 08/12/19 08/12/19 History Allergies Allergy/AdvReac Type Severity Reaction Status Date / Time pravastatin Allergy Rash/Hives Verified 08/12/19 22:43 amlodipine AdvReac CONSTIPATIO Verified 08/12/19 22:43 N atenolol AdvReac MALE ED Verified 08/12/19 22:43 hydrochlorothiazide AdvReac RENAL Verified 08/12/19 22:43 IMPAIRMENT Physical Exam Vitals: Vital Signs Temp Pulse Resp BP Pulse Ox 08/13/19 00:00 63 18 142/53 95 08/12/19 22:57 56 L 16 167/67 96 08/12/19 22:22 70 18 08/12/19 22:10 68 18 08/12/19 22:00 54 L 16 96 08/12/19 21:00 44 L 18 08/12/19 19:57 98.1 F 45 L 16 147/52 96 Intake and Output 08/12/19 08/12/19 08/13/19 14:59 22:59 06:59 Other: Weight 118.388 kg General: non toxic, no distress, appears at stated age, obese Derm: Bilateral lower extremity lymphedema with chronic venous stasis changes, no unusual ecchymoses, warm, dry Head: atraumatic, normocephalic, symmetric Eyes: EOMI, no lid lag, anicteric sclera, pupils equal round reactive to light ENT: Nose and ears atraumatic, no thrush, no pharyngeal erythema Neck: No thyromegaly, no cervical lymphadenopathy, trachea midline, supple Mouth: no lip lesion, mucus membranes moist Cardiovascular: S1S2 reg, no murmur, positive posterior tibial pulse bilateral, capillary refill less than 2 seconds Lungs: CTA bilateral, no rhonchi, no rales , no accessory muscle use Abdominal: soft, nontender to palpation, no guarding, no appreciable organomegaly, normal bowel sounds Ext: no gross muscle atrophy, bilateral lower extremity chronic venous stasis changes with serous drainage from small ulcers, muscle strength 4 out of 5 in all 4 extremities grossly, no contractures, Neuro: CN II-XI grossly intact, light touch intact all 4 extremities, finger to nose within normal limits Psych: Alert, awake, oriented to person and place, not fully oriented to time Results CBC & Chem 7: 08/12/19 20:28 08/13/19 01:54 Labs: Abnormal Lab Results - Last 24 Hours (Table) 08/12/19 08/12/19 08/12/19 Range/Units 20:28 20:32 20:32 RBC 3.58 L (4.30-5.90) m/uL Hgb 11.9 L (13.0-17.5) gm/dL Hct 35.6 L (39.0-53.0) % Lymphocytes # 0.5 L (1.0-4.8) k/uL PT 12.8 H (9.0-12.0) sec INR 1.3 H (<1.2) APTT 35.9 H (22.0-30.0) sec Sodium 128 L (137-145) mmol/L Potassium 6.8 H* (3.5-5.1) mmol/L Chloride 96 L (98-107) mmol/L Carbon Dioxide 19 L (22-30) mmol/L BUN 73 H (9-20) mg/dL Creatinine 3.15 H (0.66-1.25) mg/dL Glucose 125 H (74-99) mg/dL Magnesium 3.1 H (1.6-2.3) mg/dL Ur Leukocyte Esterase (Negative) Urine WBC (0-5) /hpf Urine WBC Clumps (None) /hpf Urine Bacteria (None) /hpf Urine Mucus (None) /hpf 08/12/19 08/12/19 08/13/19 Range/Units 21:25 21:47 01:54 RBC (4.30-5.90) m/uL Hgb (13.0-17.5) gm/dL Hct (39.0-53.0) % Lymphocytes # (1.0-4.8) k/uL PT (9.0-12.0) sec INR (<1.2) APTT (22.0-30.0) sec Sodium (137-145) mmol/L Potassium 6.6 H* 5.8 H (3.5-5.1) mmol/L Chloride (98-107) mmol/L Carbon Dioxide (22-30) mmol/L BUN (9-20) mg/dL Creatinine (0.66-1.25) mg/dL Glucose (74-99) mg/dL Magnesium (1.6-2.3) mg/dL Ur Leukocyte Esterase Large H (Negative) Urine WBC 67 H (0-5) /hpf Urine WBC Clumps Moderate H (None) /hpf Urine Bacteria Moderate H (None) /hpf Urine Mucus Rare H (None) /hpf Assessment and Plan Plan: Altered mental status likely toxic metabolic encephalopathy in setting of UTI -Continue with ceftriaxone -Follow up urine and blood cultures -Continue with IV fluids Hyperkalemia, improved, likely secondary to dehydration and poor oral intake -Administer Kayexalate -Monitor for resolution Chronic kidney disease, similar to baseline -Monitor for now Chronic conditions: Hypertension, A. fib, HLD, CAD -C/w home meds DVT prophylaxis -Xarelto The patient is admitted with an anticipated greater than 2 midnight stay for evaluation of altered mental status CODE STATUS: Full Code Discussed with: Patient Anticipated discharge date: 2-[address]: Home A total of 40 minutes was spent on the care of this complex patient more than 50% of the time was spent in counseling and care coordination.
[2019-08-13] MEDS ORDERED: SODIUM POLYSTYRENE SULFONATE 15 GM/60 ML BOTTLE PO ONE (04:05)
[2019-08-13 07:58] LABS: Calcium 9.2 mg/dL (8.4-10.2); Magnesium 2.9 mg/dL (1.6-2.3); Potassium 5.4 mmol/L (3.5-5.1)
[2019-08-13] MEDS: SODIUM CHLORIDE 0.9% 1,000 ML IV SCH (09:11)
[2019-08-13] MEDS: FLUoxetine HCL 20 MG CAP PO SCH (09:12)
[2019-08-13] MEDS: GABAPENTIN 100 MG CAP PO SCH ×2 (09:13→16:44)
[2019-08-13] MEDS: RANOLAZINE 500 MG TAB.ER.12H PO SCH ×2 (09:13→22:05)
[2019-08-13] MEDS: ISOSORBIDE MONONITRATE ER 60 MG TAB.ER.24H PO SCH (09:13)
[2019-08-13] MEDS ORDERED: SODIUM POLYSTYRENE SULFONATE 15 GM/60 ML BOTTLE PO STA (09:33)
--- NOTE | 2019-08-13 11:59 | P.CONS ---
History of Present Illness - Reason for Consult Consult date: 08/13/19 Wound care - History of Present Illness This is a 74-year-old patient with a nonhealing ulcerations to the right lower extremity. Patient has history of venous stasis and chronic ulcerations to bilateral lower extremities. He has been seen in the past by the wound care center where he felt that they were not doing much help for him. Patient states that he spends majority of this time sitting in a chair with his legs dependent. Patient has compression stockings at home however does not wear them because they're difficult for him to apply. Patient's past medical history significant for atrophic fibrillation, coronary artery disease, heart failure, hyperlipidemia, hypertension, venous insufficiency, chronic nonhealing ulcerations to bilateral lower extremities, cellulitis, renal disease Review of Systems Review Of Systems: Constitutional: No fever, no chills, no night sweats. No weight change. No weakness, fatigue or lethargy. No daytime sleepiness. Integumentary:reports wounds, no lesions. No rash or pruritus. No unusual bruising. No change in hair or nails. Past Medical History Past Medical History: Atrial Fibrillation, Coronary Artery Disease (CAD), Chest Pain / Angina, Heart Failure, Hyperlipidemia, Hypertension, Myocardial Infarction (NH), Osteoarthritis (OA), Renal Disease Additional Past Medical History / Comment(s): ? 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 pt stated has slept in recliner chair for past 10 years, uti ecoli 2013. gout in past, djd, lumbar disc disease. restless leg , leg cellulitis/swelling, falls/ Last Myocardial Infarction Date:: 2009 History of Any Multi-Drug Resistant Organisms: None Reported Year Discovered:: 04/02/2018 MDRO Source:: leg wound Past Surgical History: Heart Catheterization With Stent, Tonsillectomy Additional Past Surgical History / Comment(s): [id number] stents, rt hand sx to repair severed lig/tendons(age 20) has limited use of index finger Past Anesthesia/Blood Transfusion Reactions: No Reported Reaction Additional Past Anesthesia/Blood Transfusion Reaction / Comm: clausterphobia Date of Last Stent Placement:: 2009 Past Psychological History: No Psychological Hx Reported Smoking Status: Never smoker Past Alcohol Use History: None Reported Past Drug Use History: None Reported - Past Family History Mother Family Medical History: Cancer Additional Family Medical History / Comment(s): breast cancer, heart problems was on warfarin(pt stated she bled out) Father Family Medical History: Coronary Artery Disease (CAD), Myocardial Infarction (NH) Additional Family Medical History / Comment(s): Father had his 1st NH in his 50s and then from his 2nd NH at the age of 74yrs. Medications and Allergies Home Medications Medication Instructions Recorded Confirmed Type FLUoxetine HCL [PROzac] 20 mg PO DAILY@1000 07/03/13 08/12/19 History Terazosin [Hytrin] 8 mg PO HS@0000 12/25/13 08/12/19 History LORazepam [Ativan] 1 mg PO TID@0000,1000,17004/27/17 08/12/19 History Ranolazine [Ranexa] 1,000 mg PO BID@1000,219904/27/17 08/12/19 History oxyCODONE HCL [Roxicodone] 5 mg PO BID@1000,17004/27/17 08/12/19 History Isosorbide Mononitrate ER [Imdur] 30 mg PO DAILY@1000 06/26/18 08/12/19 History Labetalol HCl [Trandate] 300 mg PO BID@1000,0 11/16/18 08/12/19 History Gabapentin [Neurontin] 100 mg PO TID@0000,1000,169905/07/19 08/12/19 History Iron Polysaccharide Complex 150 mg PO MOWEFR 05/07/19 08/12/19 History [Myferon 150] Nitroglycerin Sl Tabs [Nitrostat] 0.4 mg SUBLINGUAL Q5M PRN 05/07/19 08/12/19 History Rivaroxaban [Xarelto] 15 mg PO DAILY@17005/07/19 08/12/19 History oxyCODONE HCL [Roxicodone] 10 mg PO DAILY@0000 05/07/19 08/12/19 History rOPINIRole HCL [Requip] 1 mg PO TID@0000,1000,169905/07/19 08/12/19 History Folic Acid 1 mg PO HS@22008/12/19 08/12/19 History Furosemide [Lasix] 40 mg PO BID@1000,169908/12/19 08/12/19 History Polyethylene Glycol 3350 [Miralax] 17 gm PO DAILY 08/12/19 08/12/19 History Allergies Allergy/AdvReac Type Severity Reaction Status Date / Time pravastatin Allergy Rash/Hives Verified 08/12/19 22:43 amlodipine AdvReac CONSTIPATIO Verified 08/12/19 22:43 N atenolol AdvReac MALE ED Verified 08/12/19 22:43 hydrochlorothiazide AdvReac RENAL Verified 08/12/19 22:43 IMPAIRMENT Physical Exam Vitals: Vital Signs Temp Pulse Pulse Resp BP BP Pulse Ox 08/13/19 11:09 53 L 16 08/13/19 11:08 53 L 16 144/65 98 08/13/19 08:30 98.5 F 16 08/13/19 07:23 56 L 16 157/55 100 08/13/19 02:56 98.9 F 58 L 19 163/63 97 08/13/19 00:00 63 18 142/53 95 08/12/19 22:57 56 L 16 167/67 96 08/12/19 22:22 70 18 08/12/19 22:10 68 18 08/12/19 22:00 54 L 16 96 08/12/19 21:00 44 L 18 08/12/19 19:57 98.1 F 45 L 16 147/52 96 Intake and Output 08/12/19 08/13/19 08/13/19 22:59 06:59 14:59 Intake Total 300 Output Total 625 350 Balance -325 -350 Intake: Intake, IV Titration 300 Amount Sodium Chloride 0.9% 1, 250 000 ml @ 50 mls/hr IV . Q20H [facility] Rx#:[id number] cefTRIAXone 1 gm In 50 Sodium Chloride 0.9% 50 ml @ 100 mls/hr IVPB ONCE STA Rx#:[id number] Output: Urine 625 350 Other: Voiding Method Urinal # Voids 2 Weight 118.388 kg 118.388 kg Physical exam: General Appearance: Alert, cooperative, no distress, appears stated age. Skin: Right lower extremity posterior aspect has multiple small ulcerations Limited to skin breakdown with serous drainage, granulation seen within wound bed, very wound shows erythema and maceration discoloration and hyperpigmentation, no tunneling or undermining noted to the ulcerations. Right lower extremity skin is intact, serous drainage noted, hyper pigmentation erythema noted . Bilateral lower extremities edematous. all other Skin color, texture, tugor normal, no rashes or lesions. Neurologic: Alert oriented x3 Results CBC & Chem 7: 08/12/19 20:28 08/13/19 07:10 Labs: Abnormal Lab Results - Last 24 Hours (Table) 08/12/19 08/12/19 08/12/19 Range/Units 20:28 20:32 20:32 RBC 3.58 L (4.30-5.90) m/uL Hgb 11.9 L (13.0-17.5) gm/dL Hct 35.6 L (39.0-53.0) % Lymphocytes # 0.5 L (1.0-4.8) k/uL PT 12.8 H (9.0-12.0) sec INR 1.3 H (<1.2) APTT 35.9 H (22.0-30.0) sec Sodium 128 L (137-145) mmol/L Potassium 6.8 H* (3.5-5.1) mmol/L Chloride 96 L (98-107) mmol/L Carbon Dioxide 19 L (22-30) mmol/L BUN 73 H (9-20) mg/dL Creatinine 3.15 H (0.66-1.25) mg/dL Glucose 125 H (74-99) mg/dL Magnesium 3.1 H (1.6-2.3) mg/dL Ur Leukocyte Esterase (Negative) Urine WBC (0-5) /hpf Urine WBC Clumps (None) /hpf Urine Bacteria (None) /hpf Urine Mucus (None) /hpf 08/12/19 08/12/19 08/13/19 Range/Units 21:25 21:47 01:54 RBC (4.30-5.90) m/uL Hgb (13.0-17.5) gm/dL Hct (39.0-53.0) % Lymphocytes # (1.0-4.8) k/uL PT (9.0-12.0) sec INR (<1.2) APTT (22.0-30.0) sec Sodium (137-145) mmol/L Potassium 6.6 H* 5.8 H (3.5-5.1) mmol/L Chloride (98-107) mmol/L Carbon Dioxide (22-30) mmol/L BUN (9-20) mg/dL Creatinine (0.66-1.25) mg/dL Glucose (74-99) mg/dL Magnesium (1.6-2.3) mg/dL Ur Leukocyte Esterase Large H (Negative) Urine WBC 67 H (0-5) /hpf Urine WBC Clumps Moderate H (None) /hpf Urine Bacteria Moderate H (None) /hpf Urine Mucus Rare H (None) /hpf 08/13/19 Range/Units 07:10 RBC (4.30-5.90) m/uL Hgb (13.0-17.5) gm/dL Hct (39.0-53.0) % Lymphocytes # (1.0-4.8) k/uL PT (9.0-12.0) sec INR (<1.2) APTT (22.0-30.0) sec Sodium 135 L (137-145) mmol/L Potassium 5.4 H (3.5-5.1) mmol/L Chloride (98-107) mmol/L Carbon Dioxide 21 L (22-30) mmol/L BUN 68 H (9-20) mg/dL Creatinine 3.13 H (0.66-1.25) mg/dL Glucose 104 H (74-99) mg/dL Magnesium 2.9 H (1.6-2.3) mg/dL Ur Leukocyte Esterase (Negative) Urine WBC (0-5) /hpf Urine WBC Clumps (None) /hpf Urine Bacteria (None) /hpf Urine Mucus (None) /hpf Microbiology - Last 24 Hours (Table) 08/12/19 21:25 Urine Culture - Preliminary Urine,Voided Assessment and Plan (1) Chronic venous hypertension (idiopathic) with ulcer and inflammation of right lower extremity Current Visit: Yes Status: Acute Code(s): I87.331 - CHRONIC VENOUS HTN W ULCER AND INFLAMMATION OF R LOW EXTREM; L97.919 - NON-PRS CHRONIC ULC UNSP PRT OF R LOW LEG W UNSP SEVERITY SNOMED Code(s): 393845834298623 (2) Chronic venous hypertension (idiopathic) with inflammation of right lower extremity Current Visit: Yes Status: Acute Code(s): I87.321 - CHRONIC VENOUS HYPERTENSION W INFLAMMATION OF R LOW EXTREM SNOMED Code(s): 771257944 (3) Non-healing ulcer of lower leg, limited to breakdown of skin Current Visit: Yes Status: Acute Code(s): L97.901 - NON-PRS CHR ULC UNSP PRT OF UNSP LOW LEG LMT TO BRKDWN SKIN SNOMED Code(s): 18546351 (4) Bilateral leg edema Current Visit: No Status: Acute Code(s): R60.0 - LOCALIZED EDEMA SNOMED Code(s): 954063180 (5) Bilateral lower leg cellulitis Current Visit: No Status: Acute Code(s): L03.116 - CELLULITIS OF LEFT LOWER LIMB; L03.115 - CELLULITIS OF RIGHT LOWER LIMB SNOMED Code(s): 949881702 Plan: Right lower extremity apply absorptive silver to ulcerations, apply zinc 2 areas not covered by the observed to silver, wrap with rolled gauze and secure with paper tape and wrap with an elastic wrap such as an Dylan wrap. Right lower extremity apply zinc barrier cream and wrap with an Dylan wrap. Instructed patient's to elevate legs at least 30 minutes a day 3 times a day. Discussed with patient the importance of not having legs dependent. Patient to utilize compression garments while at home he may benefit from CircAid that can be ordered an outpatient arena. Patient is seen in wound care in the past and does not feel that it would be helpful for him to go to a wound care center. CircAid can be ordered through his primary care physician through DME. Thank you kindly for the consultation any questions please contact the wound care center DNP note has been reviewed and discussed with Dr. Chambers and the impression and plan of care has been directed as dictated.
--- NOTE | 2019-08-13 14:43 | P.PN ---
Progress Note - Text Progress Note Date: 08/13/19 Patient seen and examined, is still confused. Continue on IV antibiotics for UTI. Continue IV fluids. He is requesting to go home. I told him he cannot go home at this point.
[2019-08-13 16:36] LABS: Potassium 5.1 mmol/L (3.5-5.1)
[2019-08-13] MEDS ORDERED: RIVAROXABAN 15 MG TAB PO SCH (17:00)
--- NOTE | 2019-08-13 17:20 | P.NPCON ---
History of Present Illness - Reason for Consult acute renal failure, chronic renal failure - History of Present Illness Reason for consultation: Acute kidney injury on chronic kidney disease History of present illness: Patient is a 74-year-old male seen in renal consultation for acute kidney injury on chronic kidney disease. Patient has chronic kidney disease stage IIIB with baseline creatinine in the range of 2-2.5. Patient's creatinine was 3.15 on admission and came down to 2.98 this afternoon. Potassium level was also 6.8 on admission and came down to 5.1. Patient presented to the hospital for generalized weakness. He's been sleeping more according to the family. He denies any difficulty with urination. No hematuria or dysuria. Denies any vomiting or diarrhea. No chest pain or shortness of breath. Hemodynamically he's been stable. No evidence of hypotension. I don't see nephrotoxins and his home medications. He was taking Lasix at home which is currently held. Chest x-ray not suggestive of fluid overload. He is currently being treated for presumed UTI. Urine culture pending. Denies abdominal pain. Vital signs are stable. General: The patient appeared well nourished and normally developed. HEENT: Head exam is unremarkable. Neck is without jugular venous distension. LUNGS: Breath sounds decreased. HEART: Rate and Rhythm are regular. First and second heart sounds normal. No murmurs, rubs or gallops. ABDOMEN: Abdominal exam reveals normal bowel sounds. Non-tender and non- distended. No evidence of peritonitis. EXTREMITITES: 1+ edema noted. No active drainage. Past Medical History Past Medical History: Atrial Fibrillation, Coronary Artery Disease (CAD), Chest Pain / Angina, Heart Failure, Hyperlipidemia, Hypertension, Myocardial Infarction (NH), Osteoarthritis (OA), Renal Disease Additional Past Medical History / Comment(s): ? 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 pt stated has slept in recliner chair for past 10 years, uti ecoli 2013. gout in past, djd, lumbar disc disease. restless leg , leg cellulitis/swelling, falls/ Last Myocardial Infarction Date:: 2009 History of Any Multi-Drug Resistant Organisms: None Reported Date of last positivie culture/infection: 04/02/2018 MDRO Source:: leg wound Past Surgical History: Heart Catheterization With Stent, Tonsillectomy Additional Past Surgical History / Comment(s): [id number] stents, rt hand sx to repair severed lig/tendons(age 20) has limited use of index finger Past Anesthesia/Blood Transfusion Reactions: No Reported Reaction Additional Past Anesthesia/Blood Transfusion Reaction / Comment(s): cla usterphobia Date of Last Stent Placement:: 2009 Past Psychological History: No Psychological Hx Reported Smoking Status: Never smoker Past Alcohol Use History: None Reported Past Drug Use History: None Reported - Past Family History Mother Family Medical History: Cancer Additional Family Medical History / Comment(s): breast cancer, heart problems was on warfarin(pt stated she bled out) Father Family Medical History: Coronary Artery Disease (CAD), Myocardial Infarction (NH) Additional Family Medical History / Comment(s): Father had his 1st NH in his 50s and then from his 2nd NH at the age of 74yrs. Medications and Allergies Home Medications Medication Instructions Recorded Confirmed Type FLUoxetine HCL [PROzac] 20 mg PO DAILY@1000 07/03/13 08/12/19 History Terazosin [Hytrin] 8 mg PO HS@0000 12/25/13 08/12/19 History LORazepam [Ativan] 1 mg PO TID@0000,1000,1700 04/27/17 08/12/19 History Ranolazine [Ranexa] 1,000 mg PO BID@1000,2200 04/27/17 08/12/19 History oxyCODONE HCL [Roxicodone] 5 mg PO BID@1000,1700 04/27/17 08/12/19 History Isosorbide Mononitrate ER [Imdur] 30 mg PO DAILY@1000 06/26/18 08/12/19 History Labetalol HCl [Trandate] 300 mg PO BID@1000,2200 11/16/18 08/12/19 History Gabapentin [Neurontin] 100 mg PO TID@0000,1000,1700 05/07/19 08/12/19 History Iron Polysaccharide Complex 150 mg PO MOWEFR 05/07/19 08/12/19 History [Myferon 150] Nitroglycerin Sl Tabs [Nitrostat] 0.4 mg SUBLINGUAL Q5M PRN 05/07/19 08/12/19 History Rivaroxaban [Xarelto] 15 mg PO DAILY@1700 05/07/19 08/12/19 History oxyCODONE HCL [Roxicodone] 10 mg PO DAILY@0000 05/07/19 08/12/19 History rOPINIRole HCL [Requip] 1 mg PO TID@0000,1000,1700 05/07/19 08/12/19 History Folic Acid 1 mg PO HS@2200 08/12/19 08/12/19 History Furosemide [Lasix] 40 mg PO BID@1000,1700 08/12/19 08/12/19 History Polyethylene Glycol 3350 [Miralax] 17 gm PO DAILY 08/12/19 08/12/19 History Allergies Allergy/AdvReac Type Severity Reaction Status Date / Time pravastatin Allergy Rash/Hives Verified 08/12/19 22:43 amlodipine AdvReac CONSTIPATIO Verified 08/12/19 22:43 N atenolol AdvReac MALE ED Verified 08/12/19 22:43 hydrochlorothiazide AdvReac RENAL Verified 08/12/19 22:43 IMPAIRMENT Physical Exam Vitals: Vital Signs Temp Pulse Pulse Resp BP BP Pulse Ox 08/13/19 16:00 96 F L 68 16 167/73 94 L 08/13/19 13:45 96.5 F L 55 L 146/62 98 08/13/19 11:09 53 L 16 08/13/19 11:08 53 L 16 144/65 98 08/13/19 08:30 98.5 F 16 08/13/19 07:23 56 L 16 157/55 100 08/13/19 02:56 98.9 F 58 L 19 163/63 97 08/13/19 00:00 63 18 142/53 95 08/12/19 22:57 56 L 16 167/67 96 08/12/19 22:22 70 18 08/12/19 22:10 68 18 08/12/19 22:00 54 L 16 96 08/12/19 21:00 44 L 18 08/12/19 19:57 98.1 F 45 L 16 147/52 96 Intake and Output 08/13/19 08/13/19 08/13/19 06:59 14:59 22:59 Intake Total 300 Output Total 625 350 Balance -325 -350 Intake: Intake, IV Titration 300 Amount Sodium Chloride 0.9% 1, 250 000 ml @ 50 mls/hr IV . Q20H [facility] Rx#:[id number] cefTRIAXone 1 gm In 50 Sodium Chloride 0.9% 50 ml @ 100 mls/hr IVPB ONCE STA Rx#:[id number] Output: Urine 625 350 Other: Voiding Method Urinal Urinal # Voids 2 1 Weight 118.388 kg Results - Lab Results Most recent lab results Calcium 9.0 mg/dL (8.4-10.2) 08/13/19 15:53 Magnesium 2.9 mg/dL (1.6-2.3) H 08/13/19 07:10 08/12/19 20:28 08/13/19 15:53 Assessment and Plan Plan: Assessment: 1. Acute kidney injury mostly prerenal secondary to diuresis and infection. Creatinine was 3.15 on admission and 2.98 today. 2. 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 No proteinuria on UA. 3. Pyuria maintained on antibiotics. Urine culture pending. 4. Lower extremity cellulitis/ulcerations being followed by wound care. 5. Hyperkalemia secondary to acute kidney injury and metabolic acidosis. Improved with medical management. 6. Chronic diastolic CHF with mild to moderate mitral regurgitation, moderate tricuspid regurgitation. 7. Severe pulmonary hypertension. 8. Metabolic acidosis secondary to acute kidney injury. Plan: Maintain normal saline at 50 mL an hour. Hold diuretics. Check renal ultrasound. Check bladder scan to rule out urinary retention. Straight catheterization if more than 300 mL urine present. Follow up cultures. Add oral sodium bicarbonate. Repeat electrolytes in the morning. Thank you for the consultation. I will continue to follow the patient with you during his hospital stay.
--- NOTE | 2019-08-13 18:02 | US ---
EXAMINATION TYPE: US kidneys/renal and bladder DATE OF EXAM: 08/13/2019 COMPARISON: US 04/22/2018 CLINICAL HISTORY: zaira. Extremely difficult and limited exam due to patient sitting in chair during ex am and patient large body habitus EXAM MEASUREMENTS: Right Kidney: 10.3 x 5.2 x 4.5 cm Left Kidney: 12.0 x 5.2 x 4.4 cm Right Kidney: No hydronephrosis or masses seen. Limited visualization Left Kidney: No hydronephrosis. Unable to visualized larger upper pole cyst seen on previous exam wit h certainty. Lateral mid pole cyst visualized measuring 1.8 cm, unable to visualize in transverse Bladder: Unable to visualize There is no evidence for hydronephrosis at this point in time. No nephrolithiasis is seen. Suboptim al study with increased cortical echogenicity bilaterally. IMPRESSION: Suboptimal study without hydronephrosis seen bilaterally.
[2019-08-13] MEDS ORDERED: FOLIC ACID 1 MG TAB PO SCH (22:00)
[2019-08-13] MEDS: SODIUM BICARBONATE TAB 650 MG TAB PO SCH (22:04)
[2019-08-13] MEDS ORDERED: SILVER sulfADIAZINE Cream 400 GM 1 APPLIC APPLIC TOPICAL SCH (22:08)
[2019-08-14] MEDS ORDERED: DOXAZOSIN 4 MG TAB PO SCH
[2019-08-14] MEDS: GABAPENTIN 100 MG CAP PO SCH ×2 (00:13→09:06)
[2019-08-14] MEDS ORDERED: HYDROcodone/APAP 5-325MG 1 EACH TAB PO STA (00:33)
[2019-08-14 07:56] LABS: Calcium 8.9 mg/dL (8.4-10.2); Magnesium 2.9 mg/dL (1.6-2.3); Total Bilirubin 0.8 mg/dL (0.2-1.3)
[2019-08-14 07:57] LABS: Potassium 5.4 mmol/L (3.5-5.1)
[2019-08-14] MEDS: FLUoxetine HCL 20 MG CAP PO SCH (09:05)
[2019-08-14] MEDS: ISOSORBIDE MONONITRATE ER 60 MG TAB.ER.24H PO SCH (09:05)
[2019-08-14] MEDS: RANOLAZINE 500 MG TAB.ER.12H PO SCH (09:06)
[2019-08-14] MEDS: SODIUM BICARBONATE TAB 650 MG TAB PO SCH (09:06)
--- NOTE | 2019-08-14 10:16 | P.CONS ---
History of Present Illness - Reason for Consult Consult date: 08/14/19 wound care - History of Present Illness This is a 74-year-old patient with a nonhealing ulcerations to the right lower extremity. Patient has history of venous stasis and chronic ulcerations to bilateral lower extremities. He has been seen in the past by the wound care center where he felt that they were not doing much help for him. Patient states that he spends majority of this time sitting in a chair with his legs dependent. Patient has compression stockings at home however does not wear them because they're difficult for him to apply. Patient's past medical history significant for atrophic fibrillation, coronary artery disease, heart failure, hyperlipidemia, hypertension, venous insufficiency, chronic nonhealing ulcerations to bilateral lower extremities, cellulitis, renal disease 08/14/2019: Patient is upset stating that his legs are worse compared to yesterday. He states that there was no open ulcerations yesterday. And has refused any dressings that were applied. Patient requested to have the zinc barrier cream wash off Lasix. He states they are more red than yesterday. Review of Systems Review Of Systems: Constitutional: No fever, no chills, no night sweats. No weight change. No weakness, fatigue or lethargy. No daytime sleepiness. Integumentary:reports wounds, no lesions. No rash or pruritus. No unusual bruising. No change in hair or nails. Past Medical History Past Medical History: Atrial Fibrillation, Coronary Artery Disease (CAD), Chest Pain / Angina, Heart Failure, Hyperlipidemia, Hypertension, Myocardial Infarction ([place]), Osteoarthritis (OA), Renal Disease Additional Past Medical History / Comment(s): ? 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 pt stated has slept in recliner chair for past 10 years, uti ecoli 2013. gout in past, djd, lumbar disc disease. restless leg , leg cellulitis/swelling, falls/ Last Myocardial Infarction Date:: 2009 History of Any Multi-Drug Resistant Organisms: None Reported Year Discovered:: 04/02/2018 MDRO Source:: leg wound Past Surgical History: Heart Catheterization With Stent, Tonsillectomy Additional Past Surgical History / Comment(s): [id number] stents, rt hand sx to repair severed lig/tendons(age 20) has limited use of index finger Past Anesthesia/Blood Transfusion Reactions: No Reported Reaction Additional Past Anesthesia/Blood Transfusion Reaction / Comm: clausterphobia Date of Last Stent Placement:: 2009 Past Psychological History: No Psychological Hx Reported Smoking Status: Never smoker Past Alcohol Use History: None Reported Past Drug Use History: None Reported - Past Family History Mother Family Medical History: Cancer Additional Family Medical History / Comment(s): breast cancer, heart problems was on warfarin(pt stated she bled out) Father Family Medical History: Coronary Artery Disease (CAD), Myocardial Infarction ([place]) Additional Family Medical History / Comment(s): Father had his 1st FL in his 50s and then from his 2nd FL at the age of 74yrs. Medications and Allergies Home Medications Medication Instructions Recorded Confirmed Type FLUoxetine HCL [PROzac] 20 mg PO DAILY@1000 07/03/13 08/12/19 History Terazosin [Hytrin] 8 mg PO HS@0000 12/25/13 08/12/19 History LORazepam [Ativan] 1 mg PO TID@0000,1000,1700 04/27/17 08/12/19 History Ranolazine [Ranexa] 1,000 mg PO BID@1000,2200 04/27/17 08/12/19 History oxyCODONE HCL [Roxicodone] 5 mg PO BID@1000,1700 04/27/17 08/12/19 History Isosorbide Mononitrate ER [Imdur] 30 mg PO DAILY@1000 06/26/18 08/12/19 History Labetalol HCl [Trandate] 300 mg PO BID@1000,2200 11/16/18 08/12/19 History Gabapentin [Neurontin] 100 mg PO TID@0000,1000,1700 05/07/19 08/12/19 History Iron Polysaccharide Complex 150 mg PO MOWEFR 05/07/19 08/12/19 History [Myferon 150] Nitroglycerin Sl Tabs [Nitrostat] 0.4 mg SUBLINGUAL Q5M PRN 05/07/19 08/12/19 History Rivaroxaban [Xarelto] 15 mg PO DAILY@1700 05/07/19 08/12/19 History oxyCODONE HCL [Roxicodone] 10 mg PO DAILY@0000 05/07/19 08/12/19 History rOPINIRole HCL [Requip] 1 mg PO TID@0000,1000,1700 05/07/19 08/12/19 History Folic Acid 1 mg PO HS@2200 08/12/19 08/12/19 History Furosemide [Lasix] 40 mg PO BID@1000,1700 08/12/19 08/12/19 History Polyethylene Glycol 3350 [Miralax] 17 gm PO DAILY 08/12/19 08/12/19 History Allergies Allergy/AdvReac Type Severity Reaction Status Date / Time pravastatin Allergy Rash/Hives Verified 08/12/19 22:43 amlodipine AdvReac CONSTIPATIO Verified 08/12/19 22:43 N atenolol AdvReac MALE ED Verified 08/12/19 22:43 hydrochlorothiazide AdvReac RENAL Verified 08/12/19 22:43 IMPAIRMENT Physical Exam Vitals: Vital Signs Temp Pulse Resp BP Pulse Ox 08/14/19 08:00 96.6 F L 62 18 193/84 99 08/14/19 04:00 97.8 F 68 16 142/78 98 08/14/19 00:00 97.6 F 60 16 133/66 97 08/13/19 20:00 96.6 F L 58 L 18 144/58 98 08/13/19 16:00 96 F L 68 16 167/73 94 L 08/13/19 13:45 96.5 F L 55 L 146/62 98 08/13/19 11:09 53 L 16 08/13/19 11:08 53 L 16 144/65 98 Intake and Output 08/13/19 08/14/19 08/14/19 22:59 06:59 14:59 Intake Total 118 Output Total 900 300 Balance 118 -900 -300 Intake: Oral 118 Output: Urine 600 300 Other 300 Other: Voiding Method Urinal Urinal # Voids 1 Weight 118.6 kg Physical exam: General Appearance: Alert, cooperative, no distress, appears stated age. Skin: Right lower extremity posterior aspect has multiple small ulcerations Limited to skin breakdown with serous drainage, granulation seen within wound bed, tari wound shows erythema and maceration discoloration and hyperpigmentation, no tunneling or undermining noted to the ulcerations. Ulcerations are showing slight improvement compared to yesterday left lower extremity skin is intact, serous drainage noted, hyper pigmentation erythema noted . Bilateral lower extremities edematous. all other Skin color, texture, tugor normal, no rashes or lesions. Neurologic: Alert oriented x3 Results CBC & Chem 7: 08/12/19 20:28 08/14/19 06:41 Labs: Abnormal Lab Results - Last 24 Hours (Table) 08/13/19 08/14/19 Range/Units 15:53 06:41 Sodium 134 L (137-145) mmol/L Potassium 5.4 H (3.5-5.1) mmol/L Carbon Dioxide 21 L 21 L (22-30) mmol/L BUN 67 H 60 H (9-20) mg/dL Creatinine 2.98 H 2.55 H (0.66-1.25) mg/dL Glucose 114 H 126 H (74-99) mg/dL Magnesium 2.9 H (1.6-2.3) mg/dL Microbiology - Last 24 Hours (Table) 08/12/19 21:25 Urine Culture - Preliminary Urine,Voided Gram Neg Bacilli Assessment and Plan (1) Chronic venous hypertension (idiopathic) with ulcer and inflammation of right lower extremity Current Visit: Yes Status: Acute Code(s): I87.331 - CHRONIC VENOUS HTN W ULCER AND INFLAMMATION OF R LOW EXTREM; L97.919 - NON-PRS CHRONIC ULC UNSP PRT OF R LOW LEG W UNSP SEVERITY SNOMED Code(s): 358038626763164 (2) Chronic venous hypertension (idiopathic) with inflammation of right lower extremity Current Visit: Yes Status: Acute Code(s): I87.321 - CHRONIC VENOUS HYPERTENSION W INFLAMMATION OF R LOW EXTREM SNOMED Code(s): 974545616 (3) Non-healing ulcer of lower leg, limited to breakdown of skin Current Visit: Yes Status: Acute Code(s): L97.901 - NON-PRS CHR ULC UNSP PRT OF UNSP LOW LEG LMT TO BRKDWN SKIN SNOMED Code(s): 73711483 (4) Bilateral leg edema Current Visit: No Status: Acute Code(s): R60.0 - LOCALIZED EDEMA SNOMED Code(s): 620207685 (5) Bilateral lower leg cellulitis Current Visit: No Status: Acute Code(s): L03.116 - CELLULITIS OF LEFT LOWER LIMB; L03.115 - CELLULITIS OF RIGHT LOWER LIMB SNOMED Code(s): 139790928 Plan: Right lower extremity apply absorptive silver to ulcerations, apply zinc to areas not covered by the absorptive silver, wrap with rolled gauze and secure with paper tape and wrap with an elastic wrap such as an Dylan wrap. Right lower extremity apply zinc barrier cream and wrap with an Dylan wrap. Instructed patient's to elevate legs at least 30 minutes a day 3 times a day. Discussed with patient the importance of not having legs dependent. Patient to utilize compression garments while at home he may benefit from CircAid that can be ordered an outpatient arena. Patient is seen in wound care in the past and does not feel that it would be helpful for him to go to a wound care center. CircAid can be ordered through his primary care physician through DME. If patient is refusing at the absorptive silver or zinc may just wrap with an Dylan wrap to help control the drainage. Thank you kindly for the consultation any questions please contact the wound care center DNP note has been reviewed and discussed with Dr. Chambers and the impression and plan of care has been directed as dictated.
--- NOTE | 2019-08-14 10:36 | P.PN ---
Subjective Patient is seen in follow-up for acute kidney injury on chronic kidney disease. Patient has chronic kidney disease stage IIIB with baseline creatinine in the range of 2-2.5.renal function improving. Creatinine 2.55 today. Denies chest pain or shortness of breath. Good urine output. Urine culture positive for gram-negative bacilli. He wants to go home. Vital signs are stable. General: The patient appeared well nourished and normally developed. HEENT: Head exam is unremarkable. Neck is without jugular venous distension. LUNGS: Lungs are clear to auscultation and percussion. Breath sounds decreased. HEART: Rate and Rhythm are regular. ABDOMEN: soft, nontender. EXTREMITITES: Trace edema. Venous stasis changes noted. No obvious drainage noted. Objective - Vital Signs Vital signs: Vital Signs Temp 96.6 F L 08/14/19 08:00 Pulse 62 08/14/19 08:00 Resp 18 08/14/19 08:00 BP 193/84 08/14/19 08:00 Pulse Ox 99 08/14/19 08:00 Intake & Output 08/13/19 08/14/19 08/14/19 18:59 06:59 18:59 Intake Total 118 Output Total 350 900 300 Balance -232 -900 -300 Weight 118.6 kg Intake: Oral 118 Output: Urine 350 600 300 Other 300 Other: Voiding Method Urinal Urinal # Voids 1 - Labs CBC & Chem 7: 08/12/19 20:28 08/14/19 06:41 Labs: Abnormal Lab Results - Last 24 Hours (Table) 08/13/19 08/14/19 Range/Units 15:53 06:41 Sodium 134 L (137-145) mmol/L Potassium 5.4 H (3.5-5.1) mmol/L Carbon Dioxide 21 L 21 L (22-30) mmol/L BUN 67 H 60 H (9-20) mg/dL Creatinine 2.98 H 2.55 H (0.66-1.25) mg/dL Glucose 114 H 126 H (74-99) mg/dL Magnesium 2.9 H (1.6-2.3) mg/dL Microbiology - Last 24 Hours (Table) 08/12/19 21:25 Urine Culture - Preliminary Urine,Voided Gram Neg Bacilli Assessment and Plan Plan: Assessment: 1. Acute kidney injury mostly prerenal secondary to diuresis and infection. Creatinine was 3.15 on admission and 2.55 today. No hydronephrosis noted on kidney ultrasound. 2. 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 No proteinuria on UA. 3. UTI with urine culture positive for gram-negative bacilli. He is on antibiotics. 4. Lower extremity cellulitis/ulcerations being followed by wound care. 5. Hyperkalemia secondary to acute kidney injury and metabolic acidosis. Improved with medical management. This morning's sample was hemolyzed. 6. Chronic diastolic CHF with mild to moderate mitral regurgitation, moderate tricuspid regurgitation. 7. Severe pulmonary hypertension. 8. Metabolic acidosis secondary to acute kidney injury maintained on oral bicarbonate. Plan: Maintain gentle IV hydration. Avoid nephrotoxins. Follow up cultures. Repeat potassium level at noon.
[2019-08-14 12:10] VITALS: BP 158/82; PULSE 81; RESP 20; TEMP 98.3
--- NOTE | 2019-08-14 13:00 | P.DS ---
Providers Date of admission: 08/13/19 00:05 Expected date of discharge: 08/14/19 Attending physician: Peterson Brink MD Consults: 08/13/19 09:32 Consult Physician Routine Consulting Provider: Ehsan Barrientos Consult Reason/Comments: renal failure Do you want consulting provider notified?: Yes Primary care physician: Jerod Braun MD Hospital Course: 74-year-old male with a PMH of hypertension, CAD, A. fib on Xarelto, bilateral lower extremity lymphedema, and diastolic CHF who was brought in the ED by family due to generalized weakness and confusion. Confusion has been ongoing for the past 3-4 days, and in addition he has been feeling more sleepy and lethargic. Patient's reported that he had been sleeping excessively and had also complained of some lightheadedness and dizziness. He was not eating or drinking much and did not have much of an appetite. No fevers or chills. He denied dysuria, urinary frequency, hematuria, abdominal pain, nausea, vomiting, chest pain, or shortness of breath. In the ED, the patient's chest x-ray was unremarkable with EKG showing sinus rhythm with sinus arrhythmia and first-degree AV block with left axis deviation at 61 bpm. Laboratory evaluation had revealed a WBC count of 8.8, hemoglobin 11.9, sodium 128, potassium 6.6, chloride 96, BUN 73, creatinine 3.15, troponin less than 0.012, with UA consistent with UTI. Patient was admitted to the hospital, he was started on ceftriaxone for UTI treatment. Urine cultures were sent. They're currently growing gram-negative bacilli. His creatinine was slightly worse on admission compared to his baseline, he does have chronic kidney disease stage III and follows with nephrology. His potassium was noted to be elevated at 5.4. He was seen by nephrology who added bicarbonate to 50 mg twice a day to his regimen. Patient was also advised to cut down on high potassium diet. He was also seen by wound care service in regards to his chronic leg wounds. Recommendations were given. Clinically he responded to treatment with ceftriaxone, he is doing much better and he strongly wants to go home.. I discussed the case with nephrology who were okay with discharge. He'll be discharged home in stable condition. Time for discharge 35 minutes. Patient Condition at Discharge: Serious Plan - Discharge Summary New Discharge Prescriptions: New Sodium Bicarbonate Tab 650 mg PO BID 30 Days #60 tablet Cefdinir [Omnicef] 300 mg PO Q12HR 7 Days #14 capsule Continue FLUoxetine HCL [PROzac] 20 mg PO DAILY@1000 Terazosin [Hytrin] 8 mg PO HS@0000 oxyCODONE HCL [Roxicodone] 5 mg PO BID@1000,1700 Ranolazine [Ranexa] 1,000 mg PO BID@1000,2200 LORazepam [Ativan] 1 mg PO TID@0000,1000,1700 Isosorbide Mononitrate ER [Imdur] 30 mg PO DAILY@1000 Labetalol HCl [Trandate] 300 mg PO BID@1000,2200 Gabapentin [Neurontin] 100 mg PO TID@0000,1000,1700 oxyCODONE HCL [Roxicodone] 10 mg PO DAILY@0000 Rivaroxaban [Xarelto] 15 mg PO DAILY@1700 rOPINIRole HCL [Requip] 1 mg PO TID@0000,1000,1700 Nitroglycerin Sl Tabs [Nitrostat] 0.4 mg SUBLINGUAL Q5M PRN PRN Reason: Chest Pain Iron Polysaccharide Complex [Myferon 150] 150 mg PO MOWEFR Folic Acid 1 mg PO HS@2200 Furosemide [Lasix] 40 mg PO BID@1000,1700 Polyethylene Glycol 3350 [Miralax] 17 gm PO DAILY Discharge Medication List FLUoxetine HCL [PROzac] 20 mg PO DAILY@1000 07/03/13 [History] Terazosin [Hytrin] 8 mg PO HS@0000 12/25/13 [History] LORazepam [Ativan] 1 mg PO TID@0000,1000,1700 04/27/17 [History] Ranolazine [Ranexa] 1,000 mg PO BID@1000,2200 04/27/17 [History] oxyCODONE HCL [Roxicodone] 5 mg PO BID@1000,1700 04/27/17 [History] Isosorbide Mononitrate ER [Imdur] 30 mg PO DAILY@1000 06/26/18 [History] Labetalol HCl [Trandate] 300 mg PO BID@1000,2200 11/16/18 [History] Gabapentin [Neurontin] 100 mg PO TID@0000,1000,1700 05/07/19 [History] Iron Polysaccharide Complex [Myferon 150] 150 mg PO MOWEFR 05/07/19 [History] Nitroglycerin Sl Tabs [Nitrostat] 0.4 mg SUBLINGUAL Q5M PRN 05/07/19 [History] Rivaroxaban [Xarelto] 15 mg PO DAILY@1700 05/07/19 [History] oxyCODONE HCL [Roxicodone] 10 mg PO DAILY@0000 05/07/19 [History] rOPINIRole HCL [Requip] 1 mg PO TID@0000,1000,1700 05/07/19 [History] Folic Acid 1 mg PO HS@2200 08/12/19 [History] Furosemide [Lasix] 40 mg PO BID@1000,1700 08/12/19 [History] Polyethylene Glycol 3350 [Miralax] 17 gm PO DAILY 08/12/19 [History] Cefdinir [Omnicef] 300 mg PO Q12HR 7 Days #14 capsule 08/14/19 [Rx] Sodium Bicarbonate Tab 650 mg PO BID 30 Days #60 tablet 08/14/19 [Rx] Follow up Appointment(s)/Referral(s): Jerod Braun MD [Primary Care Provider] - 1-2 days (Unable to get through. Please call to schedule follow up appointment) Ehsan Barrientos DO [STAFF PHYSICIAN] - 1 Week Ambulatory/Diagnostic Orders: Basic Metabolic Panel [LAB.AMB] Time Frame: 5 Days, Location: None Selected Patient Instructions/Handouts: Hyperkalemia (DC)
--- NOTE | 2019-08-17 09:31 | CDI ---
Documentation Clarification Form Date: 08/17/19 From: Deidra Mcclain Phone: If you have a question about this query, please contact Whitney Collado, Expander Machine Operator at [phone] between 8am and 5pm. Admit Date: 08/13/19 Discharge Date: 08/14/19 Patient Name: JEFFREY DUKE Visit Number: [id number] ATTENTION: The Clinical Documentation Specialists (CDI) and [facility] Coding Staff appreciate your assistance in clarifying documentation. Please respond to the clarification below the line at the bottom and electronically sign. The CDI & [facility] Coding staff will review the response and follow-up if needed. Please note: Queries are made part of the Legal Health Record. If you have any questions, please contact the author of this message via ITS. Dear Dr. Amber Gutierrez, Atrial Fibrillation is documented in the ED Note, H&P and all three consults. A. Fib is documented in the H&P and DS. History/Risk Factors: CAD, HTN w chronic diastolic CHF w CKD III, EMMA, acidosis, chronic venous hypertensio with ulcer & inflammation bilateral legs, bilat leg cellulitis, pulm HTN EKG shows marked sinus bradycardia with a first-degree AV block.Ventricular rate is 43, P return normal 304, QR zoroastrianism 110, QTC 508, QTC 429.No evidence of ST elevation or depression. Treatment: Xarelto 15 mg po daily, In your professional opinion, can you please clarify the type of Atrial Fibrillation, if known? Chronic Permanent Paroxysmal Persistent, longstanding Persistent, other Persistent, permanent Other, please specify Unable to determine Paroxysmal MTDD
== END 2019-08-14 13:56 | disposition home or self-care (01) | DRG 689 ==
LOC: EC 19:54 → 3SCARD 08-13 00:05
PROVIDERS: ADMIT Internal Medicine; ATTEND Internal Medicine
DX: N39.0 Urinary tract infection, site not specified (principal); G92 Toxic encephalopathy; N17.9 Acute kidney failure, unspecified; I13.0 Hypertensive heart and chronic kidney disease with heart failure and stage 1 through stage 4 chronic kidney disease, or unspecified chronic kidney disease; E87.2 Acidosis; L97.819 Non-pressure chronic ulcer of other part of right lower leg with unspecified severity; L97.829 Non-pressure chronic ulcer of other part of left lower leg with unspecified severity; I87.333 Chronic venous hypertension (idiopathic) with ulcer and inflammation of bilateral lower extremity; L03.115 Cellulitis of right lower limb; L03.116 Cellulitis of left lower limb; I50.32 Chronic diastolic (congestive) heart failure; I27.20 Pulmonary hypertension, unspecified; E83.41 Hypermagnesemia; I48.0 Paroxysmal atrial fibrillation; N18.3 Chronic kidney disease, stage 3 (moderate); Z11.59 Encounter for screening for other viral diseases; I25.10 Atherosclerotic heart disease of native coronary artery without angina pectoris; E78.5 Hyperlipidemia, unspecified; I89.0 Lymphedema, not elsewhere classified; I25.2 Old myocardial infarction; M51.9 Unspecified thoracic, thoracolumbar and lumbosacral intervertebral disc disorder; I44.0 Atrioventricular block, first degree; E87.5 Hyperkalemia; I08.1 Rheumatic disorders of both mitral and tricuspid valves; T50.2X5A Adverse effect of carbonic-anhydrase inhibitors, benzothiadiazides and other diuretics, initial encounter; R00.1 Bradycardia, unspecified; G25.81 Restless legs syndrome; E86.0 Dehydration; M19.90 Unspecified osteoarthritis, unspecified site; Z79.01 Long term (current) use of anticoagulants; Z79.891 Long term (current) use of opiate analgesic; Z79.899 Other long term (current) drug therapy; Z77.098 Contact with and (suspected) exposure to other hazardous, chiefly nonmedicinal, chemicals; Z86.19 Personal history of other infectious and parasitic diseases; Z87.440 Personal history of urinary (tract) infections; Z87.39 Personal history of other diseases of the musculoskeletal system and connective tissue; Z91.81 History of falling; Z90.89 Acquired absence of other organs; Z95.5 Presence of coronary angioplasty implant and graft; Z98.890 Other specified postprocedural states; Z88.8 Allergy status to other drugs, medicaments and biological substances; Z80.3 Family history of malignant neoplasm of breast; Z82.49 Family history of ischemic heart disease and other diseases of the circulatory system
CPT/HCPCS: 36415; 71046; 76770; 80048; 80053; 81001; 83605; 83735; 84132; 84484; 85025; 85610; 85730; 87077; 87086; 87186; 93005; 94640; 96361; 96365; 96375; 99285

== ENCOUNTER 2019-08-20 18:36 | Inpatient (IN) | payer OTHER, MEDICARE ==
--- NOTE | 2019-08-20 18:55 | ED ---
Weakness HPI - General Chief complaint: Weakness Stated complaint: increased weakness Time Seen by Provider: 08/20/19 18:36 Source: patient, EMS, RN notes reviewed, old records reviewed Mode of arrival: EMS - History of Present Illness Initial comments: This is a 74-year-old male with a history of recent admission for weakness and urinary tract infection also has a history of A. fib hypertension and renal insufficiency he has long-term peripheral lymph edema who presents by EMS with complaints of generalized weakness is For past couple days he progressively worse he denies any fevers chills nausea vomiting sweats or other symptoms at this time no focal weakness he does state he fell around 5:30 this morning loss of balance. No focal weakness. He states his legs just gave out on him. No complaints of any extremity pain. MD Complaint: generalized weakness - Related Data Home Medications Medication Instructions Recorded Confirmed FLUoxetine HCL [PROzac] 20 mg PO DAILY@1000 07/03/13 08/20/19 Terazosin [Hytrin] 8 mg PO HS@0000 12/25/13 08/20/19 LORazepam [Ativan] 1 mg PO TID@0000,1000,1700 04/27/17 08/20/19 Ranolazine [Ranexa] 1,000 mg PO BID@1000,2200 04/27/17 08/20/19 oxyCODONE HCL [Roxicodone] 5 mg PO BID@1000,1700 04/27/17 08/20/19 Isosorbide Mononitrate ER [Imdur] 30 mg PO DAILY@1000 06/26/18 08/20/19 Labetalol HCl [Trandate] 300 mg PO BID@1000,2200 11/16/18 08/20/19 Gabapentin [Neurontin] 100 mg PO TID@0000,1000,1700 05/07/19 08/20/19 Iron Polysaccharide Complex 150 mg PO MOWEFR 05/07/19 08/20/19 [Myferon 150] Nitroglycerin Sl Tabs [Nitrostat] 0.4 mg SUBLINGUAL Q5M PRN 05/07/19 08/20/19 Rivaroxaban [Xarelto] 15 mg PO DAILY@1700 05/07/19 08/20/19 oxyCODONE HCL [Roxicodone] 10 mg PO DAILY@0000 05/07/19 08/20/19 rOPINIRole HCL [Requip] 1 mg PO TID@0000,1000,1700 05/07/19 08/20/19 Folic Acid 1 mg PO HS@2200 08/12/19 08/20/19 Furosemide [Lasix] 40 mg PO BID@1000,1700 08/12/19 08/20/19 Polyethylene Glycol 3350 [Miralax] 17 gm PO DAILY 08/12/19 08/20/19 Cefdinir [Omnicef] 300 mg PO BID@1000,219908/20/19 08/20/19 Sodium Bicarbonate Tab 650 mg PO BID@1000,2200 08/20/19 08/20/19 Allergies Allergy/AdvReac Type Severity Reaction Status Date / Time pravastatin Allergy Rash/Hives Verified 08/20/19 19:04 amlodipine AdvReac CONSTIPATIO Verified 08/20/19 19:04 N atenolol AdvReac MALE ED Verified 08/20/19 19:04 hydrochlorothiazide AdvReac RENAL Verified 08/20/19 19:04 IMPAIRMENT Review of Systems ROS Statement: Those systems with pertinent positive or pertinent negative responses have been documented in the HPI. ROS Other: All systems not noted in ROS Statement are negative. Past Medical History Past Medical History: Atrial Fibrillation, Coronary Artery Disease (CAD), Chest Pain / Angina, Heart Failure, Hyperlipidemia, Hypertension, Myocardial Infarction ([place]), Osteoarthritis (OA), Renal Disease Additional Past Medical History / Comment(s): ? 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 pt stated has slept in recliner chair for past 10 years, uti ecoli 2013. gout in past, djd, lumbar disc disease. restless leg , leg cellulitis/swelling, falls/ Last Myocardial Infarction Date:: 2009 History of Any Multi-Drug Resistant Organisms: None Reported Date of last positivie culture/infection: 04/02/2018 MDRO Source:: leg wound Past Surgical History: Heart Catheterization With Stent, Tonsillectomy Additional Past Surgical History / Comment(s): [id number] stents, rt hand sx to repair severed lig/tendons(age 20) has limited use of index finger Past Anesthesia/Blood Transfusion Reactions: No Reported Reaction Additional Past Anesthesia/Blood Transfusion Reaction / Comment(s): clausterphobia Date of Last Stent Placement:: 2009 Past Psychological History: No Psychological Hx Reported Smoking Status: Never smoker Past Alcohol Use History: None Reported Past Drug Use History: None Reported - Past Family History Mother Family Medical History: Cancer Additional Family Medical History / Comment(s): breast cancer, heart problems was on warfarin(pt stated she bled out) Father Family Medical History: Coronary Artery Disease (CAD), Myocardial Infarction ([place]) Additional Family Medical History / Comment(s): Father had his 1st WA in his 50s and then from his 2nd WA at the age of 74yrs. General Exam - General Exam Comments Initial Comments: This is a well-developed well-nourished awake alert oriented 3 male General appearance: alert, in no apparent distress Head exam: Present: atraumatic, normocephalic, normal inspection Eye exam: Present: normal appearance, PERRL, EOMI. Absent: scleral icterus, conjunctival injection, periorbital swelling ENT exam: Present: mucous membranes dry Neck exam: Present: normal inspection. Absent: tenderness, meningismus, lymph adenopathy Respiratory exam: Present: normal lung sounds bilaterally. Absent: respiratory distress, wheezes, rales, rhonchi, stridor Cardiovascular Exam: Present: irregular rhythm. Absent: systolic murmur, diastolic murmur, rubs, gallop, clicks GI/Abdominal exam: Present: soft, normal bowel sounds. Absent: distended, ten derness, guarding, rebound, rigid Extremities exam: Present: full ROM, normal capillary refill, pedal edema, other (Stasis dermatitis with weeping.). Absent: tenderness, joint swelling, calf tenderness Back exam: Present: normal inspection Neurological exam: Present: alert, oriented X3, CN II-XII intact Psychiatric exam: Present: normal affect, normal mood Skin exam: Present: warm, dry, intact, normal color. Absent: rash Course Vital Signs 08/20/19 18:44 Temperature 97.6 F Pulse Rate 72 Respiratory 18 Rate Blood Pressure 130/56 O2 Sat by Pulse 96 Oximetry - Reevaluation(s) Reevaluation #1: 08/20/19 20:12 Reevaluation patient reveals no change in status. 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) Medical Decision Making - Lab Data Result diagrams: 08/20/19 18:53 08/20/19 18:53 Lab Results 08/20/19 08/20/19 08/20/19 Range/Units 18:53 18:53 18:53 WBC 9.4 (3.8-10.6) k/uL RBC 3.50 L (4.30-5.90) m/uL Hgb 11.1 L (13.0-17.5) gm/dL Hct 34.2 L (39.0-53.0) % MCV 97.5 (80.0-100.0) fL MCH 31.8 (25.0-35.0) pg MCHC 32.6 (31.0-37.0) g/dL RDW 13.7 (11.5-15.5) % Plt Count 452 H (150-450) k/uL Neutrophils % 77 % Lymphocytes % 8 % Monocytes % 9 % Eosinophils % 3 % Basophils % 1 % Neutrophils # 7.3 (1.3-7.7) k/uL Lymphocytes # 0.7 L (1.0-4.8) k/uL Monocytes # 0.8 (0-1.0) k/uL Eosinophils # 0.3 (0-0.7) k/uL Basophils # 0.1 (0-0.2) k/uL Sodium 128 L (137-145) mmol/L Potassium 6.3 H* (3.5-5.1) mmol/L Chloride 96 L (98-107) mmol/L Carbon Dioxide 21 L (22-30) mmol/L Anion Gap 11 mmol/L BUN 86 H (9-20) mg/dL Creatinine 3.43 H (0.66-1.25) mg/dL Est GFR (CKD-EPI)AfAm 19 (>60 ml/min/1.73 sqM) Est GFR (CKD-EPI)NonAf 17 (>60 ml/min/1.73 sqM) Glucose 108 H (74-99) mg/dL POC Glucose (mg/dL) (75-99) mg/dL POC Glu Marketing Research Coordinator ID Calcium 8.8 (8.4-10.2) mg/dL Magnesium 3.0 H (1.6-2.3) mg/dL Total Bilirubin 0.4 (0.2-1.3) mg/dL AST 24 (17-59) U/L ALT 15 (4-49) U/L Alkaline Phosphatase 82 (38-126) U/L Creatine Kinase 106 (55-170) U/L Troponin I <0.012 (0.000-0.034) ng/mL NT-Pro-B Natriuret Pep pg/mL Total Protein 7.5 (6.3-8.2) g/dL Albumin 3.7 (3.5-5.0) g/dL Lipase 245 (23-300) U/L 08/20/19 08/20/19 Range/Units 18:53 18:56 WBC (3.8-10.6) k/uL RBC (4.30-5.90) m/uL Hgb (13.0-17.5) gm/dL Hct (39.0-53.0) % MCV (80.0-100.0) fL MCH (25.0-35.0) pg MCHC (31.0-37.0) g/dL RDW (11.5-15.5) % Plt Count (150-450) k/uL Neutrophils % % Lymphocytes % % Monocytes % % Eosinophils % % Basophils % % Neutrophils # (1.3-7.7) k/uL Lymphocytes # (1.0-4.8) k/uL Monocytes # (0-1.0) k/uL Eosinophils # (0-0.7) k/uL Basophils # (0-0.2) k/uL Sodium (137-145) mmol/L Potassium (3.5-5.1) mmol/L Chloride (98-107) mmol/L Carbon Dioxide (22-30) mmol/L Anion Gap mmol/L BUN (9-20) mg/dL Creatinine (0.66-1.25) mg/dL Est GFR (CKD-EPI)AfAm (>60 ml/min/1.73 sqM) Est GFR (CKD-EPI)NonAf (>60 ml/min/1.73 sqM) Glucose (74-99) mg/dL POC Glucose (mg/dL) 120 H (75-99) mg/dL POC Glu Marketing Research Coordinator ID Megan Cuello Calcium (8.4-10.2) mg/dL Magnesium (1.6-2.3) mg/dL Total Bilirubin (0.2-1.3) mg/dL AST (17-59) U/L ALT (4-49) U/L Alkaline Phosphatase (38-126) U/L Creatine Kinase (55-170) U/L Troponin I (0.000-0.034) ng/mL NT-Pro-B Natriuret Pep 3690 pg/mL Total Protein (6.3-8.2) g/dL Albumin (3.5-5.0) g/dL Lipase (23-300) U/L - Radiology Data Radiology results: report reviewed (I did discuss findings with patient family), image reviewed Critical Care Time Critical Care Time: Yes Total Critical Care Time: 31 Critical Care Time: 31 minutes of critical care time which includes initial presentation with history physical labs x-rays since it could also review of old charting. Reeva luation patient several occasions discussed with the patient family regarding findings discussed with the admitting physician admission orders and documentation of the above Disposition Clinical Impression: Acute on chronic renal failure, Hyperkalemia, Fall, Failure to thrive, Lymphedema Disposition: ADMITTED IP TO THIS [facility] Condition: Fair Referrals: Jerod Braun MD [Primary Care Provider] - 1-2 days
[2019-08-20 18:58] LABS: Glucose,Whole Blood 120 mg/dL (75-99)
[2019-08-20 19:09] LABS: Basophils # (A) 0.1 k/uL (0-0.2); Basophils % (A) 1 %; Eosinophils # (A) 0.3 k/uL (0-0.7); Eosinophils % (A) 3 %; HCT 34.2 % (39.0-53.0); HGB 11.1 gm/dL (13.0-17.5); Lymphocytes # (A) 0.7 k/uL (1.0-4.8); Lymphocytes % (A) 8 %; MCH 31.8 pg (25.0-35.0); MCHC 32.6 g/dL (31.0-37.0); MCV 97.5 fL (80.0-100.0); Mean Platelet Volume 6.7; Monocytes # (A) 0.8 k/uL (0-1.0); Monocytes % (A) 9 %; Neutrophils # (A) 7.3 k/uL (1.3-7.7); Neutrophils % (A) 77 %; Platelet Count 452 k/uL (150-450); RDW 13.7 % (11.5-15.5); WBC 9.4 k/uL (3.8-10.6)
--- NOTE | 2019-08-20 19:22 | XR ---
EXAMINATION TYPE: XR chest 2V DATE OF EXAM: 08/20/2019 COMPARISON: 08/12/2019 HISTORY: Weakness TECHNIQUE: FINDINGS: There is no heart failure nor confluent pneumonic infiltrate. Thoracic aorta is atheromatou s. There is no pleural effusion. Bony thorax is intact. IMPRESSION: No active cardiopulmonary disease. No change.
[2019-08-20 19:32] LABS: Albumin 3.7 g/dL (3.5-5.0); Calcium 8.8 mg/dL (8.4-10.2); Total Bilirubin 0.4 mg/dL (0.2-1.3); Total Protein 7.5 g/dL (6.3-8.2)
[2019-08-20 19:35] LABS: Potassium 6.3 mmol/L (3.5-5.1)
[2019-08-20] MEDS ORDERED: ALBUTEROL NEBULIZED 2.5 MG/3 ML INHALATION STA (19:53)
[2019-08-20] MEDS ORDERED: FUROSEMIDE 10 MG/ML 4 ML VIAL IV STA (19:53)
[2019-08-20] MEDS ORDERED: SODIUM POLYSTYRENE SULFONATE 15 GM/60 ML BOTTLE PO ONE (19:54)
[2019-08-20] MEDS ORDERED: INSULIN REGULAR 100 UNIT/ML VIAL IV ONE (19:55)
[2019-08-20] MEDS ORDERED: DEXTROSE 50% SYRINGE 50 ML IVP STA (19:55)
[2019-08-20] MEDS ORDERED: SODIUM BICARB 8.4% 50 ML SYR (1 MEQ/ML) IV STA (19:57)
[2019-08-20] MEDS ORDERED: CALCIUM CHLORIDE 100 MG/ML 10 ML SYRINGE IVP STA (19:58)
[2019-08-20] MEDS ORDERED: NALOXONE 0.4 MG/ML 1 ML VIAL IV PRN (20:15)
[2019-08-20] MEDS ORDERED: NITROGLYCERIN SL TABS 0.4 MG TAB SUBLINGUAL PRN (20:18)
[2019-08-20] MEDS: SODIUM CHLORIDE 0.9% 1,000 ML IV SCH (21:02)
[2019-08-20] MEDS: SODIUM POLYSTYRENE SULFONATE 15 GM/60 ML BOTTLE PO SCH (21:10)
[2019-08-20 21:15] LABS: Appearance,Urine Clear (Clear); Bilirubin,Urine Negative (Negative); Blood,Urine Negative (Negative); Color,Urine Yellow; Glucose,Urine (UA) Negative (Negative); Ketones,Urine Negative (Negative); Leukocyte Esterase,Urine Negative (Negative); Nitrite,Urine Negative (Negative); Protein,Urine Negative (Negative); Specific Gravity,Urine 1.008 (1.001-1.035); Urobilinogen,Urine <2.0 mg/dL (<2.0)
[2019-08-20] MEDS: RANOLAZINE 500 MG TAB.ER.12H PO SCH (22:03)
[2019-08-20] MEDS: CEFDINIR 300 MG CAP PO SCH (22:04)
[2019-08-20] MEDS: SODIUM BICARBONATE TAB 650 MG TAB PO SCH (22:04)
[2019-08-20] MEDS: FOLIC ACID 1 MG TAB PO SCH (22:04)
[2019-08-20] MEDS: GABAPENTIN 100 MG CAP PO SCH (23:59)
--- NOTE | 2019-08-21 00:01 | P.HPIM ---
History of Present Illness H&P Date: 08/20/19 Chief Complaint: generalized weakness, falling 74 year old male wit CKD III, P. afib, hypertension , and recent diagnosis of UTI patient comes in by EMS, as his notified EMS due to feeling weak. since his discharge about a week ago, he did not seem to improve much, over the past 2 days , he seemed progressively weaker, today he sustained a fall when he tried to stand up to walk using his walker. he denies any head injur or LOC. he denies any associated focal neuro deficits, chest pain, palpitations, or trouble breathing . he denies any urinary symptoms , he still taking his antbiotic course. he otherwise denies any fever , chills, coughing, or URI. denies any nausea or vomiting, denies hematuria. in the ED, he was found to have hyponatremia ,hyperkalemia, worsening renal function. EKG showed rate controlled afib. no acute st changes. Review of Systems Pertinent positives as noted in HPI. All other systems were reviewed and are negative Past Medical History Past Medical History: Atrial Fibrillation, Coronary Artery Disease (CAD), Chest Pain / Angina, Heart Failure, Hyperlipidemia, Hypertension, Myocardial Infarction ([place]), Osteoarthritis ([place]), Renal Disease Additional Past Medical History / Comment(s): ? 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 pt stated has slept in recliner chair for past 10 years, uti ecoli 2013. gout in past, djd, lumbar disc disease. restless leg , leg cellulitis/swelling, falls/ Last Myocardial Infarction Date:: 2009 History of Any Multi-Drug Resistant Organisms: None Reported Date of last positivie culture/infection: 04/02/2018 MDRO Source:: leg wound Past Surgical History: Heart Catheterization With Stent, Tonsillectomy Additional Past Surgical History / Comment(s): [id number] stents, rt hand sx to repair severed lig/tendons(age 20) has limited use of index finger Past Anesthesia/Blood Transfusion Reactions: No Reported Reaction Additional Past Anesthesia/Blood Transfusion Reaction / Comment(s): clausterphobia Date of Last Stent Placement:: 2009 Past Psychological History: No Psychological Hx Reported Smoking Status: Never smoker Past Alcohol Use History: None Reported Past Drug Use History: None Reported - Past Family History Mother Family Medical History: Cancer Additional Family Medical History / Comment(s): breast cancer, heart problems was on warfarin(pt stated she bled out) Father Family Medical History: Coronary Artery Disease (CAD), Myocardial Infarction ([place]) Additional Family Medical History / Comment(s): Father had his 1st MT in his 50s and then from his 2nd MT at the age of 74yrs. Medications and Allergies Home Medications Medication Instructions Recorded Confirmed Type FLUoxetine HCL [PROzac] 20 mg PO DAILY@1000 07/03/13 08/20/19 History Terazosin [Hytrin] 8 mg PO HS@0000 12/25/13 08/20/19 History LORazepam [Ativan] 1 mg PO TID@0000,1000,169904/27/17 08/20/19 History Ranolazine [Ranexa] 1,000 mg PO BID@1000,219904/27/17 08/20/19 History oxyCODONE HCL [Roxicodone] 5 mg PO BID@1000,169904/27/17 08/20/19 History Isosorbide Mononitrate ER [Imdur] 30 mg PO DAILY@1000 06/26/18 08/20/19 History Labetalol HCl [Trandate] 300 mg PO BID@1000,219911/16/18 08/20/19 History Gabapentin [Neurontin] 100 mg PO TID@0000,1000,169905/07/19 08/20/19 History Iron Polysaccharide Complex 150 mg PO MOWEFR@219905/07/19 08/20/19 History [Myferon 150] Nitroglycerin Sl Tabs [Nitrostat] 0.4 mg SUBLINGUAL Q5M PRN 05/07/19 08/20/19 History Rivaroxaban [Xarelto] 15 mg PO DAILY@169905/07/19 08/20/19 History oxyCODONE HCL [Roxicodone] 10 mg PO DAILY@0000 05/07/19 08/20/19 History rOPINIRole HCL [Requip] 1 mg PO TID@0000,1000,169905/07/19 08/20/19 History Folic Acid 1 mg PO HS@22008/12/19 08/20/19 History Furosemide [Lasix] 40 mg PO BID@1000,169908/12/19 08/20/19 History Polyethylene Glycol 3350 [Miralax] 17 gm PO DAILY 08/12/19 08/20/19 History Cefdinir [Omnicef] 300 mg PO BID@1000,2200 08/20/19 08/20/19 History Sodium Bicarbonate Tab 650 mg PO BID@1000,2200 08/20/19 08/20/19 History Allergies Allergy/AdvReac Type Severity Reaction Status Date / Time pravastatin Allergy Rash/Hives Verified 08/20/19 19:04 amlodipine AdvReac CONSTIPATIO Verified 08/20/19 19:04 N atenolol AdvReac MALE ED Verified 08/20/19 19:04 hydrochlorothiazide AdvReac RENAL Verified 08/20/19 19:04 IMPAIRMENT Physical Exam Vitals: Vital Signs Temp Pulse Resp BP Pulse Ox 08/20/19 18:44 97.6 F 72 18 130/56 96 Intake and Output 08/20/19 08/20/19 08/20/19 06:59 14:59 22:59 Other: Weight 119.295 kg Constitutional: No acute distress, conversant, pleasant, morbidly obese Eyes: Anicteric sclerae, moist conjunctiva, Pupils equal round reactive to light ENMT: NC/AT Oropharynx clear, no erythema, or exudates Neck: Supple, FROM, no masses, or JVD No carotid bruits No thyromegaly Lungs: Clear to auscultation Clear to percussion Normal respiratory effort, no accessory muscle use Cardiovascular: Heart irregular in rate and rhythm, No murmurs, gallops, or rubs bilateral non pitting edema bilateral legs Abdominal: Soft Nontender, no guarding, rebound or rigidity Abdomen moving with respiration Normoactive bowel sounds obese limiting exam, patient in sitting position , declined to lay in bed due to chronic back pain Skin: Normal temperature, tone, texture, turgor chronic skin changes over his lower extremities bilaterally. chronic draining wounds over right lower one third of the leg. Extremities: No digital cyanosis No clubbing Pedal pulses weak and symmetrical, capillary refill immediate bilateral toes Radial pulses intact and symmetrical No calf tenderness Psychiatric: Alert and oriented to person, place , not to time Appropriate affect fair judgement Neuro Muscles Strength 5/5 in bilateral upper extremities , 3/5 in bilateral lower extremiteis Sensation to light touch grossly present throughout Cranial nerves II-XII grossly intact No focal sensory deficits Lymphatics: no palpable cervical or supraclavicular , or inguinal lymph nodes Results CBC & Chem 7: 08/20/19 18:53 08/20/19 23:03 Labs: Abnormal Lab Results - Last 24 Hours (Table) 08/20/19 08/20/19 08/20/19 Range/Units 18:53 18:53 18:56 RBC 3.50 L (4.30-5.90) m/uL Hgb 11.1 L (13.0-17.5) gm/dL Hct 34.2 L (39.0-53.0) % Plt Count 452 H (150-450) k/uL Lymphocytes # 0.7 L (1.0-4.8) k/uL Sodium 128 L (137-145) mmol/L Potassium 6.3 H* (3.5-5.1) mmol/L Chloride 96 L (98-107) mmol/L Carbon Dioxide 21 L (22-30) mmol/L BUN 86 H (9-20) mg/dL Creatinine 3.43 H (0.66-1.25) mg/dL Glucose 108 H (74-99) mg/dL POC Glucose (mg/dL) 120 H (75-99) mg/dL Magnesium 3.0 H (1.6-2.3) mg/dL Assessment and Plan Assessment: electrolyte imbalance hyperkalemia hyponatremia EMMA on CKD III IVF hydration , hold diuretics monitor renal function and electrolytes patient given insulin and D50 to help lower K , follow up closely EKG , no acute T wave changes monitor urine output chronic venous insufficiency and chronic right leg draining ulcer aguila wrapping bilaterally pain control recent UTI follow up culture resume PO antibiotics chronic conditions history of CAD P. Afib rate controlled , on xarelto hypertension resume home meds recent fall PT/OT fall precautions follow up labs Preformed a thorough record review from recent hospitalization was disacharged one week ago where he had UTI and confusion Surrogate decision-maker: patient CODE STATUS:full code DVT prophylaxis: on xarelto Discussed with: Patient, ER, Anticipated length of stay > than [address]: home A total of 75 minutes was spent on the care of this complex patient more than 50% of the time was spent in counseling and care coordination.
--- NOTE | 2019-08-21 00:05 | P.HPADDEND ---
H&P Addendum H&P Addendum Date: 08/20/19 Advanced Care Planning Active diagnoses: electrolytes imbalance Background: The patient was admitted for treatment of electrolyte imbalance and falling. Discussion: Person(s) present and participating in discussion: The patient, and myself Summary: Patient reports living with his who is taking care of him, he has been progressively getting weaker uses a walker to ambulate where he goes to the bathroom only he spends his day on his recliner where he sleeps and watches TV. He doesn't lay flat on his bed due to his back pain and causes trouble breathing. Patient is morbidly obese. He was recently discharged from the hospital where he was treated for UTI and now he comes back with worsening generalized weakness and was found to have electrolyte imbalance. Patient sustained a fall at home. He is hoping that he can go back home with home care where he gets a visiting nurse this can help him around the house. He reports to be compliant with his medications but feels that he is not getting better he elected to be a full code but only and there is good outcome he declined being on machines for long-term or utilizing trach for life-sustaining measures. He is hoping that he will get better and be able to go home soon. Time spent: Total time spent face to face in education and discussion directly related to advanced care plannin minutes
[2019-08-21] MEDS: LABETALOL 100 MG TAB PO SCH ×3 (01:00→21:01)
[2019-08-21 06:39] LABS: Basophils # (A) 0.1 k/uL (0-0.2); Basophils % (A) 1 %; Eosinophils # (A) 0.4 k/uL (0-0.7); Eosinophils % (A) 5 %; HCT 34.1 % (39.0-53.0); HGB 11.3 gm/dL (13.0-17.5); Lymphocytes # (A) 0.9 k/uL (1.0-4.8); Lymphocytes % (A) 12 %; MCH 32.7 pg (25.0-35.0); MCHC 33.1 g/dL (31.0-37.0); MCV 98.8 fL (80.0-100.0); Mean Platelet Volume 6.6; Monocytes # (A) 0.7 k/uL (0-1.0); Monocytes % (A) 9 %; Neutrophils # (A) 5.3 k/uL (1.3-7.7); Neutrophils % (A) 71 %; Platelet Count 424 k/uL (150-450); RBC 3.45 m/uL (4.30-5.90); WBC 7.5 k/uL (3.8-10.6)
[2019-08-21 06:48] LABS: Albumin 3.7 g/dL (3.5-5.0); Potassium 5.3 mmol/L (3.5-5.1); Total Bilirubin 0.5 mg/dL (0.2-1.3); Total Protein 7.4 g/dL (6.3-8.2)
[2019-08-21] MEDS: POLYETHYLENE GLYCOL 3350 17 GM POWD.PACK PO SCH (08:51)
[2019-08-21] MEDS: SODIUM POLYSTYRENE SULFONATE 15 GM/60 ML BOTTLE PO SCH ×2 (08:51→20:59)
[2019-08-21] MEDS: ISOSORBIDE MONONITRATE ER 60 MG TAB.ER.24H PO SCH (08:52)
[2019-08-21] MEDS: FLUoxetine HCL 20 MG CAP PO SCH (08:52)
[2019-08-21] MEDS: CEFDINIR 300 MG CAP PO SCH (08:53)
[2019-08-21] MEDS: GABAPENTIN 100 MG CAP PO SCH ×3 (08:53→23:23)
[2019-08-21] MEDS: SODIUM BICARBONATE TAB 650 MG TAB PO SCH ×2 (08:53→21:01)
[2019-08-21] MEDS: RANOLAZINE 500 MG TAB.ER.12H PO SCH ×2 (08:54→21:01)
[2019-08-21] MEDS: LORazepam 1 MG TAB PO SCH ×4 (08:54→23:23)
[2019-08-21] MEDS: FUROSEMIDE 10 MG/ML 4 ML VIAL IV SCH ×2 (09:09→20:59)
[2019-08-21] MEDS ORDERED: FUROSEMIDE 40 MG TAB PO SCH (10:00)
[2019-08-21] MEDS: SODIUM CHLORIDE 0.9% 1,000 ML IV SCH (11:26)
--- NOTE | 2019-08-21 11:56 | P.CONS ---
History of Present Illness - Reason for Consult Consult date: 08/21/19 wound care - History of Present Illness This is a 74-year-old patient's being seen by the wound care center for nonhealing ulcerations to the right lower extremity on . Patient was seen approximately 1 week ago for the same complaint. Patient was prescribed zinc barrier cream and absorptive silver. Patient demanded the the product be removed during his last hospitalization because he stated that it was burning. Patient is refusing any further treatment. Stating that he was seen by a physician near of who stated that Vaseline was all that was needed. Review of Systems Review Of Systems: Constitutional: No fever, no chills, no night sweats. No weight change. No weakness, fatigue or lethargy. No daytime sleepiness. Integumentary:reports wounds, no lesions. No rash or pruritus. No unusual bruising. No change in hair or nails. Past Medical History Past Medical History: Atrial Fibrillation, Coronary Artery Disease (CAD), Chest Pain / Angina, Heart Failure, Hyperlipidemia, Hypertension, Myocardial Infarctio n (NV), Osteoarthritis (OA), Renal Disease Additional Past Medical History / Comment(s): ? 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 pt stated has slept in recliner chair for past 10 years, uti ecoli 2013. gout in past, djd, lumbar disc disease . restless leg , leg cellulitis/swelling, falls/ Last Myocardial Infarction Date:: 2009 History of Any Multi-Drug Resistant Organisms: None Reported Year Discovered:: 04/02/2018 MDRO Source:: leg wound Past Surgical History: Heart Catheterization With Stent, Tonsillectomy Additional Past Surgical History / Comment(s): [id number] stents, rt hand sx to repair severed lig/tendons(age 20) has limited use of index finger Past Anesthesia/Blood Transfusion Reactions: No Reported Reaction Additional Past Anesthesia/Blood Transfusion Reaction / Comm: clausterphobia Date of Last Stent Placement:: 2009 Past Psychological History: No Psychological Hx Reported Smoking Status: Never smoker Past Alcohol Use History: None Reported Past Drug Use History: None Reported - Past Family History Mother Family Medical History: Cancer Additional Family Medical History / Comment(s): breast cancer, heart problems was on warfarin(pt stated she bled out) Father Family Medical History: Coronary Artery Disease (CAD), Myocardial Infarction (NV) Additional Family Medical History / Comment(s): Father had his 1st NV in his 50s and then from his 2nd NV at the age of 74yrs. Medications and Allergies Home Medications Medication Instructions Recorded Confirmed Type FLUoxetine HCL [PROzac] 20 mg PO DAILY@1000 07/03/13 08/20/19 History Terazosin [Hytrin] 8 mg PO HS@0000 12/25/13 08/20/19 History LORazepam [Ativan] 1 mg PO TID@0000,1000,1700 04/27/17 08/20/19 History Ranolazine [Ranexa] 1,000 mg PO BID@1000,219904/27/17 08/20/19 History oxyCODONE HCL [Roxicodone] 5 mg PO BID@1000,169904/27/17 08/20/19 History Isosorbide Mononitrate ER [Imdur] 30 mg PO DAILY@1000 06/26/18 08/20/19 History Labetalol HCl [Trandate] 300 mg PO BID@1000,219911/16/18 08/20/19 History Gabapentin [Neurontin] 100 mg PO TID@0000,1000,169905/07/19 08/20/19 History Iron Polysaccharide Complex 150 mg PO MOWEFR@219905/07/19 08/20/19 History [Myferon 150] Nitroglycerin Sl Tabs [Nitrostat] 0.4 mg SUBLINGUAL Q5M PRN 05/07/19 08/20/19 History Rivaroxaban [Xarelto] 15 mg PO DAILY@169905/07/19 08/20/19 History oxyCODONE HCL [Roxicodone] 10 mg PO DAILY@0000 05/07/19 08/20/19 History rOPINIRole HCL [Requip] 1 mg PO TID@0000,1000,169905/07/19 08/20/19 History Folic Acid 1 mg PO HS@219908/12/19 08/20/19 History Furosemide [Lasix] 40 mg PO BID@1000,1700 08/12/19 08/20/19 History Polyethylene Glycol 3350 [Miralax] 17 gm PO DAILY 08/12/19 08/20/19 History Cefdinir [Omnicef] 300 mg PO BID@1000,2200 08/20/19 08/20/19 History Sodium Bicarbonate Tab 650 mg PO BID@1000,2200 08/20/19 08/20/19 History Allergies Allergy/AdvReac Type Severity Reaction Status Date / Time pravastatin Allergy Rash/Hives Verified 08/20/19 19:04 amlodipine AdvReac CONSTIPATIO Verified 08/20/19 19:04 N atenolol AdvReac MALE ED Verified 08/20/19 19:04 hydrochlorothiazide AdvReac RENAL Verified 08/20/19 19:04 IMPAIRMENT Physical Exam Vitals: Vital Signs Temp Pulse Pulse Resp BP BP Pulse Ox 08/21/19 08:00 97.8 F 58 L 20 130/80 96 08/21/19 04:00 97.3 F L 54 L 18 185/79 97 08/21/19 00:00 96.9 F L 59 L 18 130/80 96 08/20/19 21:06 96.6 F L 60 18 95 08/20/19 21:00 75 18 169/82 98 08/20/19 20:44 74 08/20/19 20:29 70 08/20/19 18:44 97.6 F 72 18 130/56 96 Intake and Output 08/20/19 08/21/19 08/21/19 22:59 06:59 14:59 Intake Total 480 Output Total 1050 225 Balance -1050 255 Intake: Oral 480 Output: Urine 1050 225 Other: Voiding Method Urinal Weight 119.295 kg 119.3 kg Physical exam: General Appearance: Alert, cooperative, no distress, appears stated age. Skin: Right lower extremity posterior and anterior aspect of multiple small ulcerations Limited to skin breakdown with serous drainage. Granulation seen throughout the wound bed. Erythema and maceration noted to the periwound with hyperpigmentation. There is no tunneling or undermining to ulcerations. Of lower extremity skin is intact no drainage noted however there is redness and hyperpigmentation noted. Bilateral lower extremities is edematous. all other Skin color, texture, tugor normal, no rashes or lesions. Neurologic: Alert oriented x3 Results CBC & Chem 7: 08/21/19 06:02 08/21/19 06:02 Labs: Abnormal Lab Results - Last 24 Hours (Table) 0708/20/19 08/20/19 Range/Units 18:53 18:53 18:56 RBC 3.50 L (4.30-5.90) m/uL Hgb 11.1 L (13.0-17.5) gm/dL Hct 34.2 L (39.0-53.0) % Plt Count 452 H (150-450) k/uL Lymphocytes # 0.7 L (1.0-4.8) k/uL Sodium 128 L (137-145) mmol/L Potassium 6.3 H* (3.5-5.1) mmol/L Chloride 96 L (98-107) mmol/L Carbon Dioxide 21 L (22-30) mmol/L BUN 86 H (9-20) mg/dL Creatinine 3.43 H (0.66-1.25) mg/dL Glucose 108 H (74-99) mg/dL POC Glucose (mg/dL) 120 H (75-99) mg/dL Magnesium 3.0 H (1.6-2.3) mg/dL 08/20/19 08/21/19 08/21/19 Range/Units 23:03 06:02 06:02 RBC 3.45 L (4.30-5.90) m/uL Hgb 11.3 L (13.0-17.5) gm/dL Hct 34.1 L (39.0-53.0) % Plt Count (150-450) k/uL Lymphocytes # 0.9 L (1.0-4.8) k/uL Sodium 134 L (137-145) mmol/L Potassium 5.2 H 5.3 H (3.5-5.1) mmol/L Chloride (98-107) mmol/L Carbon Dioxide (22-30) mmol/L BUN 86 H (9-20) mg/dL Creatinine 3.49 H (0.66-1.25) mg/dL Glucose 106 H (74-99) mg/dL POC Glucose (mg/dL) (75-99) mg/dL Magnesium (1.6-2.3) mg/dL Assessment and Plan (1) Non-healing ulcer of lower leg, limited to breakdown of skin Current Visit: No Status: Acute Code(s): L97.901 - NON-PRS CHR ULC UNSP PRT OF UNSP LOW LEG LMT TO BRKDWN SKIN SNOMED Code(s): 17694488 (2) Chronic venous hypertension (idiopathic) with ulcer and inflammation of right lower extremity Current Visit: No Status: Acute Code(s): I87.331 - CHRONIC VENOUS HTN W ULCER AND INFLAMMATION OF R LOW EXTREM; L97.919 - NON-PRS CHRONIC ULC UNSP PRT OF R LOW LEG W UNSP SEVERITY SNOMED Code(s): 918454488462703 (3) Chronic venous hypertension (idiopathic) with inflammation of left lower extremity Current Visit: Yes Status: Acute Code(s): I87.322 - CHRONIC VENOUS HYPERTENSION W INFLAMMATION OF L LOW EXTREM SNOMED Code(s): 844759832
[2019-08-21 12:05] VITALS: BMI 39.9
--- NOTE | 2019-08-21 15:01 | P.PN ---
Subjective Progress Note Date: 08/21/19 Patient is doing well this morning. He denies any weakness. No other concerns. He is questioning when he can go home. Objective - Vital Signs Vital signs: Vital Signs Temp 98.1 F 08/21/19 12:00 Pulse 50 L 08/21/19 12:00 Resp 18 08/21/19 12:00 BP 125/75 08/21/19 12:00 Pulse Ox 96 08/21/19 12:00 Intake & Output 08/20/19 08/21/19 08/21/19 18:59 06:59 18:59 Intake Total 480 Output Total 1050 225 Balance -1050 255 Weight 119.295 kg 119.3 kg 119.3 kg Intake: Oral 480 Output: Urine 1050 225 Other: Voiding Method Urinal - Exam General: The patient is awake and alert, in no distress Eye: there is normal conjunctiva bilaterally. Neck: The neck is supple, there is no JVD. Cardiovascular: Normal S1-S2, no S3-S4, no murmurs. Respiratory: Lungs clear to auscultation bilaterally Gastrointestinal: Abdomen is soft, nontender Musculoskeletal: There is bilateral edema up to the knee. Chronic venous insuf ficiency. The right lower extremity wrapped in clean dressing and Dylan wrap up to the mid chin. Neurological:. Speech is normal. Skin: Skin is warm and dry - Labs CBC & Chem 7: 08/21/19 06:02 08/21/19 06:02 Labs: Abnormal Lab Results - Last 24 Hours (Table) 08/20/19 08/20/19 08/20/19 Range/Units 18:53 18:53 18:56 RBC 3.50 L (4.30-5.90) m/uL Hgb 11.1 L (13.0-17.5) gm/dL Hct 34.2 L (39.0-53.0) % Plt Count 452 H (150-450) k/uL Lymphocytes # 0.7 L (1.0-4.8) k/uL Sodium 128 L (137-145) mmol/L Potassium 6.3 H* (3.5-5.1) mmol/L Chloride 96 L (98-107) mmol/L Carbon Dioxide 21 L (22-30) mmol/L BUN 86 H (9-20) mg/dL Creatinine 3.43 H (0.66-1.25) mg/dL Glucose 108 H (74-99) mg/dL POC Glucose (mg/dL) 120 H (75-99) mg/dL Magnesium 3.0 H (1.6-2.3) mg/dL 08/20/19 08/21/19 08/21/19 Range/Units 23:03 06:02 06:02 RBC 3.45 L (4.30-5.90) m/uL Hgb 11.3 L (13.0-17.5) gm/dL Hct 34.1 L (39.0-53.0) % Plt Count (150-450) k/uL Lymphocytes # 0.9 L (1.0-4.8) k/uL Sodium 134 L (137-145) mmol/L Potassium 5.2 H 5.3 H (3.5-5.1) mmol/L Chloride (98-107) mmol/L Carbon Dioxide (22-30) mmol/L BUN 86 H (9-20) mg/dL Creatinine 3.49 H (0.66-1.25) mg/dL Glucose 106 H (74-99) mg/dL POC Glucose (mg/dL) (75-99) mg/dL Magnesium (1.6-2.3) mg/dL Assessment and Plan Assessment: electrolyte imbalance hyperkalemia, treated medically on presentation now trending down hyponatremia EMMA on CKD III IVF hydration discontinued by nephrology Seen by nephrology, started on IV Lasix monitor renal function and electrolytes EKG , no acute T wave changes monitor urine output chronic venous insufficiency and chronic right leg draining ulcer Seen by wound care, appreciate recommendations. dylan wrapping bilaterally pain control recent UTI follow up culture resume home PO antibiotics chronic conditions history of CAD P. Afib rate controlled , on xarelto hypertension resume home meds recent fall PT/OT fall precautions
--- NOTE | 2019-08-21 15:41 | CONS ---
CONSULTATION REASON FOR CONSULT: Renal failure. HISTORY OF PRESENT ILLNESS: Patient is a 74-year-old male with history of chronic kidney disease, baseline creatinine 2 to 2.5 mg/dL, stage 3B, secondary to nephrosclerosis. The patient was admitted to the hospital with history of increased lower extremity swelling and drainage. No history of fever. The patient denies any worsening shortness of breath. He has had previous admissions for CHF exacerbation, mainly diastolic dysfunction. The patient also has severe pulmonary hypertension with persistent chronic lower extremity edema. Serum creatinine this admission was 3.43 mg/dL with potassium of 6.3. It is 3.49 today. Previous creatinine was 2.5 on 08/14/2019. Patient denied use of any nonsteroidal anti-inflammatory agents. He is maintained on loop diuretics and blood pressures have not been low; in fact, on the higher side. PAST MEDICAL HISTORY: CKD, stage 4, secondary to nephrosclerosis, atrial fibrillation, coronary artery disease, diastolic heart failure, history of RI, hypertension, hyperlipidemia, exposure to Agent [place], history of UTI, gout, lumbar disc disease, chronic lower extremity cellulitis, chronic lower extremity edema. PAST SURGICAL HISTORY: Cardiac catheterization, coronary stent placement, tonsillectomy, cardiac stents, surgery on the right index finger. SOCIAL HISTORY: Negative for smoking, drug abuse or alcohol abuse. MEDICATIONS: Medications at home prior to admission included Prozac, Hytrin, Ativan, Ranexa, Imdur, Trandate, Neurontin, iron, Nitrostat, Xarelto, Requip, oxycodone, Lasix, folic acid, MiraLAX, Omnicef, sodium bicarb. ALLERGIES: ALLERGIES include PRAVASTATIN, AMLODIPINE, ATENOLOL, HYDROCHLOROTHIAZIDE. PHYSICAL EXAMINATION: Patient is comfortable, awake. He is not in any acute distress. Blood pressure was 130/80, heart rate 58 per minute. He is afebrile. EXAMINATION OF THE HEART: S1 and S2. EXAMINATION OF LUNGS: Bilateral breath sounds are heard. ABDOMEN: Soft, non-tender and obese. Examination of lower extremities shows bilateral extremities to be wrapped. There is drainage noted from the right lower extremity through the dressings. INFORMATION SECURITY ARCHITECT exam is grossly intact. LABS: Labs show sodium 134, potassium 5.3, chloride 98, BUN 86, creatinine 3.49, hemoglobin 11.3 g/dL. UA is completely benign. ASSESSMENT: 1. Acute kidney injury, currently nonoliguric, although patient states that he has not been voiding well. I do not have any accurate I&Os yet. This is most likely cardiorenal. UA is completely benign. We will also rule out urine retention, and a post-void residual will be ordered. I will hold off on the IV fluids, as patient has significant weeping lower extremity edema, and I will maintain him on IV Lasix. We will give him 2 doses today and then hold off on the diuretics. Chest x-ray does not show any significant pulmonary vascular congestion. 2. Chronic kidney disease, stage 4, secondary to nephrosclerosis. Baseline creatinine 2 to 2.5 mg/dL. UA is completely benign and ultrasound done on 08/13/2019 was unremarkable. 3. Bilateral lower extremity edema associated with severe pulmonary hypertension, right-sided heart failure and diastolic heart failure, maintained on oral loop diuretics at home. 4. Coronary artery disease with history of coronary stents. 5. Lower extremity cellulitis, maintained on antibiotics. 6. Hyperkalemia on initial admission associated with acute kidney injury, currently improved. PLAN: Switch to IV Lasix for 24 hours and we can use long-acting loop diuretics in the form of Demadex at the time of discharge instead of Lasix that patient was taking at home. Repeat labs in a.m. Avoid nephrotoxic agents. Check post-void residual and maintain patient on low-potassium diet. I have advised the patient that if his renal function continues to deteriorate and he remains volume-overloaded, he may need to start renal replacement therapy, and at this time he is not too keen for dialysis. Patient does not need renal replacement therapy at this time. Thank you for this consultation. We will continue to follow the patient with you during his hospitalization. MMODL / IJN: [id number] /
[2019-08-21] MEDS ORDERED: RIVAROXABAN 15 MG TAB PO SCH (17:00)
[2019-08-21] MEDS: FOLIC ACID 1 MG TAB PO SCH (21:01)
[2019-08-21] MEDS: DOXAZOSIN 4 MG TAB PO SCH ×2 (23:23)
[2019-08-21 23:27] VITALS: RESP 18
[2019-08-22 08:24] LABS: Calcium 8.4 mg/dL (8.4-10.2); Potassium 4.2 mmol/L (3.5-5.1)
[2019-08-22] MEDS: FUROSEMIDE 10 MG/ML 4 ML VIAL IV SCH (09:45)
[2019-08-22] MEDS: POLYETHYLENE GLYCOL 3350 17 GM POWD.PACK PO SCH (09:45)
[2019-08-22] MEDS: SODIUM POLYSTYRENE SULFONATE 15 GM/60 ML BOTTLE PO SCH (09:45)
[2019-08-22] MEDS: LORazepam 1 MG TAB PO SCH (09:45)
[2019-08-22] MEDS: GABAPENTIN 100 MG CAP PO SCH (09:45)
[2019-08-22] MEDS: SODIUM BICARBONATE TAB 650 MG TAB PO SCH (09:45)
[2019-08-22] MEDS: RANOLAZINE 500 MG TAB.ER.12H PO SCH (09:45)
[2019-08-22] MEDS: ISOSORBIDE MONONITRATE ER 60 MG TAB.ER.24H PO SCH (09:46)
[2019-08-22] MEDS: FLUoxetine HCL 20 MG CAP PO SCH (09:46)
[2019-08-22] MEDS: LABETALOL 100 MG TAB PO SCH (09:47)
[2019-08-22] MEDS ORDERED: CEFDINIR 300 MG CAP PO SCH ×2 (10:00→22:00)
--- NOTE | 2019-08-22 10:23 | P.PN ---
Subjective Progress Note Date: 08/22/19 Principal diagnosis: This is a 74-year-old male admitted because of worsening edema with seeping of fluid from his legs bilaterally. He was started on IV Lasix and subjectively jimenez s improved with less edema and less weeping but intake and output is not well recorded Currently he is on IV Lasix. Patient is insisting to go home because of August 22 and he was the [place] He denies any shortness of breath chest pain dizziness cramps nausea vomiting. He has a good appetite Objective - Vital Signs Vital signs: Vital Signs Temp 97.6 F 08/22/19 04:00 Pulse 60 08/22/19 04:00 Resp 18 08/22/19 04:00 BP 150/90 08/22/19 04:00 Pulse Ox 98 08/22/19 04:00 Intake & Output 08/21/19 08/22/19 08/22/19 18:59 06:59 18:59 Intake Total 480 120 Output Total 475 Balance 5 120 Weight 119.3 kg 112.5 kg Intake: Oral 480 120 Output: Urine 225 Post Void Residual 250 Other: Voiding Method Urinal On exam awake alert oriented comfortable HEENT exam no JVP neck is supple no facial asymmetry Lungs clear to auscultation good air entry bilaterally Heart sounds are unremarkable for any murmur rub gallop Abdomen soft nontender protuberant Extremity exam was 2-3+ edema with chronic pigmented skin scan with some superficial wounds that are scabbed. Neurologically awake alert oriented - Labs CBC & Chem 7: 08/21/19 06:02 08/22/19 07:30 Labs: Abnormal Lab Results - Last 24 Hours (Table) 08/22/19 Range/Units 07:30 Sodium 135 L (137-145) mmol/L Chloride 96 L (98-107) mmol/L BUN 84 H (9-20) mg/dL Creatinine 3.05 H (0.66-1.25) mg/dL Glucose 113 H (74-99) mg/dL Assessment and Plan Assessment: Impression 1. Severe edema secondary to combination of pulmonary hypertension, chronic kidney disease. On IV Lasix with improvement. 2. Acute kidney injury creatinine was 3.43 on admission on 08/20/2019 improved to 3.05 this morning causes cardiorenal syndrome and volume overload 3. Chronic kidney disease Bas stage IVeline creatinine is about 1.96 off 06/27/2018, and more recently has been 2.38 as of 05/09/2019. G for his 26 MLS per minute. Etiology is nephrosclerosis 4. History of COPD with pulmonary hypertension Recommendation 1. Discontinue IV Lasix and start torsemide 80. 2. Patient can be discharged home if he can keep strict I's and O's blood pressure and weight daily and follows back and follow up in the office on Sunday
[2019-08-22] MEDS ORDERED: TORSEMIDE 20 MG TAB PO SCH (10:30)
[2019-08-22 11:01] VITALS: BP 142/86; TEMP 96.4
[2019-08-22] MEDS ORDERED: IRON POLYSACCHARIDES COMPLEX 150 MG CAP PO SCH (12:00)
--- NOTE | 2019-08-22 13:15 | P.DS ---
Providers Date of admission: 08/20/19 20:16 Expected date of discharge: 08/22/19 Attending physician: Lee De La Torre MD Consults: 08/20/19 20:17 Consult Physician Urgent Consulting Provider: Macie Rios Consult Reason/Comments: Acute chronic renal failure, hyperkalemia Do you want consulting provider notified?: Already Contacted Primary care physician: Jerod Braun MD Hospital Course: 74-year-old male with PMH of CKG stage III, paroxysmal atrial fibrillation, hypertension and recent diagnosis of UTI presented to the ED for generalized weakness and fall. He denied any head injury or loss of consciousness. In the ED, he was found to be hyponatremic, hyperkalemic with worsening renal function. He was admitted for further management and nephrology consult. His sodium on admission was 128, calcium 6.3, bicarb of 21, BUN of 86 and creatinine of 3.43. He was started on IV hydration. He was given insulin IV along with D50. EKG showed rate controlled atrial fibrillation with no peaked T waves. He was restarted on cefdinir for recent diagnosis of UTI. Wound care was consulted for chronic venous insufficiency and ulceration in his lower extremity. Nephrology was consulted and recommended discontinuing IVF due to significant lower extremity edema and to start IV Lasix. Urinalysis was negative. Kidney ultrasound done on August 12 was unremarkable. Nephrology followed the patient during his hospitalization and cleared the patient for discharge on oral torsemide. Patient was seen and examined. No acute events overnight. Patient reports some improvement in his lower extremity swelling. He complains of some sleepiness. Requesting to go home today for August. His potassium is 4.2 within normal limits. BUN 84, creatinine 3.05. He denies any chest pain, shortness of breath or palpitations. No nausea or vomiting. No fever or chills. General: [non toxic], [no distress], [appears at stated age] Derm: [warm], [dry] Head: [atraumatic], [normocephalic], [symmetric] Eyes: [EOMI], [no lid lag], [anicteric sclera] Mouth: [no lip lesion], [mucus membranes moist] Cardiovascular: [S1S2 irregular], [no murmur], [positive DP pulse bilateral], Lungs: [CTA bilateral], [no rhonchi, no rales] , [no accessory muscle use] Abdominal: [soft], [ nontender to palpation], [no guarding], [no appreciable organomegaly] Ext: [no gross muscle atrophy], [bilateral lower extremity edema with chronic venous insufficiency, PIOTR wrapped], [no contractures] Neuro: [no focal neuro deficits] Psych: [Alert], [oriented], [appropriate affect] Acute kidney injury on chronic kidney disease stage III Chronic venous insufficiency and chronic right leg draining ulcer Recent diagnosis of UTI Chronic conditions: paroxysmal atrial fibrillation, hypertension Resolved: Hyperkalemia Patient's creatinine at the time of discharge is 3.05. Nephrology is on board and is clear the patient for discharge on torsemide. His hyperkalemia has resolved. He will continue sodium bicarb home dose. Lasix will be discontinued and patient be started on torsemide 80 mg of mouth daily. Patient advised lower extremity elevation and PIOTR wrap for his chronic venous insufficiency and right leg ulcer. He will complete his course of cefdinir that was prescribed to him in the outpatient setting. He'll be continued on labetalol for rate control of A. fib along with Xarelto for anticoagulation. Resume Imdur for treatment of hypertension. Patient advised to follow-up with nephrology on Sunday. Anticipate DC home today. Patient verbalized understanding of the plan. This complex discharge took about 45 minutes to complete. Pertinent Studies: Chest x-ray Patient Condition at Discharge: Stable Plan - Discharge Summary New Discharge Prescriptions: New Torsemide [Demadex] 80 mg PO DAILY #120 tablet Continue FLUoxetine HCL [PROzac] 20 mg PO DAILY@1000 Terazosin [Hytrin] 8 mg PO HS@0000 oxyCODONE HCL [Roxicodone] 5 mg PO BID@1000,1700 Ranolazine [Ranexa] 1,000 mg PO BID@1000,2200 LORazepam [Ativan] 1 mg PO TID@0000,1000,1700 Isosorbide Mononitrate ER [Imdur] 30 mg PO DAILY@1000 Labetalol HCl [Trandate] 300 mg PO BID@1000,2200 Gabapentin [Neurontin] 100 mg PO TID@0000,1000,1700 oxyCODONE HCL [Roxicodone] 10 mg PO DAILY@0000 Rivaroxaban [Xarelto] 15 mg PO DAILY@1700 rOPINIRole HCL [Requip] 1 mg PO TID@0000,1000,1700 Nitroglycerin Sl Tabs [Nitrostat] 0.4 mg SUBLINGUAL Q5M PRN PRN Reason: Chest Pain Iron Polysaccharide Complex [Myferon 150] 150 mg PO MOWEFR@2200 Folic Acid 1 mg PO HS@2200 Polyethylene Glycol 3350 [Miralax] 17 gm PO DAILY Cefdinir [Omnicef] 300 mg PO BID@1000,2200 Sodium Bicarbonate Tab 650 mg PO BID@1000,2200 Discontinued Furosemide [Lasix] 40 mg PO BID@1000,1700 Discharge Medication List FLUoxetine HCL [PROzac] 20 mg PO DAILY@1000 07/03/13 [History] Terazosin [Hytrin] 8 mg PO HS@0000 12/25/13 [History] LORazepam [Ativan] 1 mg PO TID@0000,1000,1700 04/27/17 [History] Ranolazine [Ranexa] 1,000 mg PO BID@1000,2200 04/27/17 [History] oxyCODONE HCL [Roxicodone] 5 mg PO BID@1000,1700 04/27/17 [History] Isosorbide Mononitrate ER [Imdur] 30 mg PO DAILY@1000 06/26/18 [History] Labetalol HCl [Trandate] 300 mg PO BID@1000,2200 11/16/18 [History] Gabapentin [Neurontin] 100 mg PO TID@0000,1000,1700 05/07/19 [History] Iron Polysaccharide Complex [Myferon 150] 150 mg PO MOWEFR@219905/07/19 [History] Nitroglycerin Sl Tabs [Nitrostat] 0.4 mg SUBLINGUAL Q5M PRN 05/07/19 [History] Rivaroxaban [Xarelto] 15 mg PO DAILY@17005/07/19 [History] oxyCODONE HCL [Roxicodone] 10 mg PO DAILY@0000 05/07/19 [History] rOPINIRole HCL [Requip] 1 mg PO TID@0000,1000,1700 05/07/19 [History] Folic Acid 1 mg PO HS@2200 08/12/19 [History] Polyethylene Glycol 3350 [Miralax] 17 gm PO DAILY 08/12/19 [History] Cefdinir [Omnicef] 300 mg PO BID@1000,219908/20/19 [History] Sodium Bicarbonate Tab 650 mg PO BID@1000,219908/20/19 [History] Torsemide [Demadex] 80 mg PO DAILY #120 tablet 08/22/19 [Rx] Follow up Appointment(s)/Referral(s): Jerod Braun MD [Primary Care Provider] - 1-2 days Macie Rios MD [STAFF PHYSICIAN] - 08/25/19 Activity/Diet/Wound Care/Special Instructions: Diet: Renal FU PCP within 3 days of DC. Take all medications as advised. FU with Nephrology on SUNDAY. Come back to the ED or call 911 for CP, SOB, palpitations, dizziness. Discharge Disposition: HOME SELF-CARE
[2019-08-22 15:59] VITALS: PULSE 60
--- NOTE | 2019-08-26 14:07 | CDI ---
Documentation Clarification Form Date: 08/26/19 From: Felicita Peña Phone: If you have a question about this query, please contact Whitney Collado, Binding Printer at [phone] between 8am and 5pm. Admit Date: 08/20/19 Discharge Date:08/22/19 Patient Name: Jose Moreno Visit Number: [id number] ATTENTION: The Clinical Documentation Specialists (CDI) and [facility] Coding Staff appreciate your assistance in clarifying documentation. Please respond to the clarification below the line at the bottom and electronically sign. The CDI & [facility] Coding staff will review the response and follow-up if needed. Please note: Queries are made part of the Legal Health Record. If you have any questions, please contact the author of this message via ITS. Dear Dr. Rios Acute kidney injury was documented in the ED note, H&P, your progress note and Dr. Rodriguez's 08/21 progress note. History/Risk Factors: Hypertension, chronic kidney disease, CAD, failure to thrive Patients baseline Creatinine is 2 to 2.5 Clinical Indicators: elevated creatinine Current BUN/Cr/GFR: 86/3.43/17, 86/3.49/16, 84/3.05 Treatment: IV Lasix IVF: NS @80 mls/hr In your professional opinion, can you please clarify if the condition can be further specified? Acute Renal Failure with Acute Tubular Necrosis Acute Renal Failure with Renal Cortical Necrosis Acute Renal Failure with other specified pathological cause, please specify Acute Renal Failure with other cause, please specify Unable to determine Other, please specify cardiorenal syndrome MTDD
== END 2019-08-22 17:15 | disposition home or self-care (01) | DRG 683 ==
LOC: EC 18:36 → 3SCARD 20:16
PROVIDERS: ADMIT Internal Medicine; ATTEND Internal Medicine
DX: N17.9 Acute kidney failure, unspecified (principal); E87.1 Hypo-osmolality and hyponatremia; I13.0 Hypertensive heart and chronic kidney disease with heart failure and stage 1 through stage 4 chronic kidney disease, or unspecified chronic kidney disease; I50.32 Chronic diastolic (congestive) heart failure; I87.311 Chronic venous hypertension (idiopathic) with ulcer of right lower extremity; L97.811 Non-pressure chronic ulcer of other part of right lower leg limited to breakdown of skin; N39.0 Urinary tract infection, site not specified; N18.4 Chronic kidney disease, stage 4 (severe); I50.82 Biventricular heart failure; I27.29 Other secondary pulmonary hypertension; R62.7 Adult failure to thrive; E87.5 Hyperkalemia; E78.5 Hyperlipidemia, unspecified; G25.81 Restless legs syndrome; Z11.59 Encounter for screening for other viral diseases; I25.10 Atherosclerotic heart disease of native coronary artery without angina pectoris; I25.2 Old myocardial infarction; I48.0 Paroxysmal atrial fibrillation; I87.322 Chronic venous hypertension (idiopathic) with inflammation of left lower extremity; I87.2 Venous insufficiency (chronic) (peripheral); I89.0 Lymphedema, not elsewhere classified; J44.9 Chronic obstructive pulmonary disease, unspecified; M19.90 Unspecified osteoarthritis, unspecified site; M51.36 Other intervertebral disc degeneration, lumbar region; Z79.01 Long term (current) use of anticoagulants; Z79.899 Other long term (current) drug therapy; Z79.891 Long term (current) use of opiate analgesic; Z95.5 Presence of coronary angioplasty implant and graft; Z87.440 Personal history of urinary (tract) infections; Z88.8 Allergy status to other drugs, medicaments and biological substances; Z57.4 Occupational exposure to toxic agents in agriculture; Z91.81 History of falling; Z80.3 Family history of malignant neoplasm of breast; Z82.49 Family history of ischemic heart disease and other diseases of the circulatory system
CPT/HCPCS: 36415; 71046; 80048; 80053; 81003; 82550; 83690; 83735; 83880; 84132; 84484; 85025; 93005; 94640; 96374; 96375; 99291

== ENCOUNTER 2019-09-01 00:37 | Observation (INO) | payer OTHER, MEDICARE ==
[2019-09-01] MEDS ORDERED: SODIUM CHLORIDE 0.9% 1,000 ML IV STA (00:54)
[2019-09-01 01:38] LABS: Basophils # (A) 0.1 k/uL (0-0.2); Basophils % (A) 1 %; Eosinophils # (A) 0.5 k/uL (0-0.7); Eosinophils % (A) 5 %; HGB 10.8 gm/dL (13.0-17.5); Lymphocytes # (A) 0.6 k/uL (1.0-4.8); Lymphocytes % (A) 6 %; MCH 31.1 pg (25.0-35.0); MCHC 31.9 g/dL (31.0-37.0); MCV 97.7 fL (80.0-100.0); Mean Platelet Volume 6.8; Monocytes # (A) 0.7 k/uL (0-1.0); Monocytes % (A) 7 %; Neutrophils # (A) 8.2 k/uL (1.3-7.7); Neutrophils % (A) 80 %; Platelet Count 402 k/uL (150-450); RBC 3.48 m/uL (4.30-5.90); RDW 13.6 % (11.5-15.5); WBC 10.2 k/uL (3.8-10.6)
[2019-09-01 01:47] LABS: INR 1.3 (<1.2); Partial Thromboplastin Time 37.9 sec (22.0-30.0); Prothrombin Time 13.2 sec (9.0-12.0)
--- NOTE | 2019-09-01 02:16 | XR ---
EXAMINATION TYPE: XR chest 1V DATE OF EXAM: 09/01/2019 COMPARISON: 08/20/2019 HISTORY: Weakness TECHNIQUE: Single view FINDINGS: Heart is enlarged. There is coarse interstitial pulmonary density. Thoracic aorta is athero matous. There is no pleural effusion. There are chest leads. IMPRESSION: There is increased pulmonary interstitial density compared to old exam that could be mild heart failure. Cardiomegaly slightly worse than old exam.
--- NOTE | 2019-09-01 02:23 | CT ---
EXAMINATION TYPE: CT brain ratna pruett DATE OF EXAM: 09/01/2019 COMPARISON: 01/29/2018 CT brain HISTORY: Fall Headache. Neck pain CT DLP: 1532.9 mGycm Automated exposure control for dose reduction was used. There is some cerebral cortical atrophy. There is mild enlargement of the ventricles and hypodensity in the periventricular white matter. There is no mass effect nor midline shift. There is no sign of i ntracranial hemorrhage. Cervical vertebra have fairly normal alignment. There is mild disc space narrowing in the lower cervi jose spine with spur formation. The skull base is intact. Temporal bones appear intact. Facet joints a re intact. There is posterior endplate spur formation at C5-6 and C6-7 with mild encroachment on the spinal canal. There is developmentally adequate canal and no significant spinal stenosis. IMPRESSION: Cerebral atrophy and chronic small vessel ischemia. No acute intracranial abnormality. No change. Spondylotic changes in the mid and lower cervical spine. No fracture seen.
--- NOTE | 2019-09-01 02:27 | ED ---
Weakness HPI - General Chief complaint: Weakness Stated complaint: weakness Time Seen by Provider: 09/01/19 00:52 Source: patient, EMS Mode of arrival: EMS Limitations: physical limitation - History of Present Illness Initial comments: Jose is a 74-year-old male with chronic kidney disease not on dialysis who presents the ER today for evaluation of generalized weakness and a fall at home. Patient reports that he's been hospitalized multiple times in the past 30 days for acute on chronic kidney disease and generalized weakness. He reports that over the past 3 days he's gotten progressively more weak and tired. He has been trying to drink plenty of fluids and stay hydrated. He reports that today he got lightheaded and fell he did not hit his head he does not have any pain. Patient's reports he was too weak for her to help them so EMS was called he is brought to the ER for reevaluation. - Related Data Home Medications Medication Instructions Recorded Confirmed FLUoxetine HCL [PROzac] 20 mg PO DAILY@1000 07/03/13 08/20/19 LORazepam [Ativan] 1 mg PO TID@0000,1000,17004/27/17 08/20/19 Ranolazine [Ranexa] 1,000 mg PO BID@1000,219904/27/17 08/20/19 oxyCODONE HCL [Roxicodone] 5 mg PO BID@1000,1700 04/27/17 08/20/19 Isosorbide Mononitrate ER [Imdur] 30 mg PO DAILY@1000 06/26/18 08/20/19 Labetalol HCl [Trandate] 300 mg PO BID@1000,219911/16/18 08/20/19 Gabapentin [Neurontin] 100 mg PO TID@0000,1000,1700 05/07/19 08/20/19 Iron Polysaccharide Complex 150 mg PO MOWEFR@219905/07/19 08/20/19 [Myferon 150] Nitroglycerin Sl Tabs [Nitrostat] 0.4 mg SUBLINGUAL Q5M PRN 05/07/19 08/20/19 Rivaroxaban [Xarelto] 15 mg PO DAILY@1700 05/07/19 08/20/19 oxyCODONE HCL [Roxicodone] 10 mg PO DAILY@0000 05/07/19 08/20/19 rOPINIRole HCL [Requip] 1 mg PO TID@0000,1000,1700 05/07/19 08/20/19 Folic Acid 1 mg PO HS@2200 08/12/19 08/20/19 Polyethylene Glycol 3350 [Miralax] 17 gm PO DAILY 08/12/19 08/20/19 Cefdinir [Omnicef] 300 mg PO BID@1000,2200 08/20/19 08/20/19 Sodium Bicarbonate Tab 650 mg PO BID@1000,2200 08/20/19 08/20/19 Previous Rx's Medication Instructions Recorded Terazosin [Hytrin] 8 mg PO HS@0000 #120 cap 08/22/19 Torsemide [Demadex] 80 mg PO DAILY #120 tablet 08/22/19 Allergies Allergy/AdvReac Type Severity Reaction Status Date / Time pravastatin Allergy Rash/Hives Verified 09/01/19 00:45 amlodipine AdvReac CONSTIPATIO Verified 09/01/19 00:45 N atenolol AdvReac MALE ED Verified 09/01/19 00:45 hydrochlorothiazide AdvReac RENAL Verified 09/01/19 00:45 IMPAIRMENT Review of Systems ROS Statement: Those systems with pertinent positive or pertinent negative responses have been documented in the HPI. ROS Other: All systems not noted in ROS Statement are negative. Past Medical History Past Medical History: Atrial Fibrillation, Coronary Artery Disease (CAD), Chest Pain / Angina, Heart Failure, Hyperlipidemia, Hypertension, Myocardial Infarctio n (PA), Osteoarthritis (OA), Renal Disease Additional Past Medical History / Comment(s): ? 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 pt stated has slept in recliner chair for past 10 years, uti ecoli 2013. gout in past, djd, lumbar disc disease . restless leg , leg cellulitis/swelling, falls/ Last Myocardial Infarction Date:: 2009 History of Any Multi-Drug Resistant Organisms: None Reported Date of last positivie culture/infection: 04/02/2018 MDRO Source:: leg wound Past Surgical History: Heart Catheterization With Stent, Tonsillectomy Additional Past Surgical History / Comment(s): [id number] stents, rt hand sx to repair severed lig/tendons(age 20) has limited use of index finger Past Anesthesia/Blood Transfusion Reactions: No Reported Reaction Additional Past Anesthesia/Blood Transfusion Reaction / Comment(s): clausterphobia Date of Last Stent Placement:: 2009 Past Psychological History: No Psychological Hx Reported Smoking Status: Never smoker Past Alcohol Use History: None Reported Past Drug Use History: None Reported - Past Family History Mother Family Medical History: Cancer Additional Family Medical History / Comment(s): breast cancer, heart problems was on warfarin(pt stated she bled out) Father Family Medical History: Coronary Artery Disease (CAD), Myocardial Infarction (PA) Additional Family Medical History / Comment(s): Father had his 1st PA in his 50s and then from his 2nd PA at the age of 74yrs. General Exam - General Exam Comments Initial Comments: Physical Exam GENERAL: Patient is well-developed and well-nourished. Patient is nontoxic and well-hydrated and is in no distress. HENT: Normocephalic, Atraumatic. EYES: PERRL, EOMI PULMONARY: Unlabored respirations. CARDIOVASCULAR: Bradycardic Warm and well perfused extremities ABDOMEN: Obese, non-tender SKIN: Chronic changes on bilateral lower extremities, wrapped : Deferred NEUROLOGIC: Alert and oriented Normal speech MUSCULOSKELETAL: Moving all extremities with no apparent injury PSYCHIATRIC: No SI/HI Limitations: physical limitation Course Vital Signs 09/01/19 09/01/19 09/01/19 00:39 01:22 02:53 Temperature 97.2 F L Pulse Rate 58 L 58 L 62 Respiratory 18 14 16 Rate Blood Pressure 141/54 141/54 142/87 O2 Sat by Pulse 96 96 94 L Oximetry 09/01/19 04:50 Temperature 98.6 F Pulse Rate 56 L Respiratory 18 Rate Blood Pressure 131/49 O2 Sat by Pulse 95 Oximetry EKG Findings - EKG Comments: EKG Findings:: EKG was obtained due to complaint of weakness, EKG obtained at 12:50 AM, rate is 57 rhythm is sinus bradycardia with first-degree AV block, leftward axis, PA prolonged at 372, QRS 100, QTC [address] elevations or depressions no evidence of acute ischemia or infarction. Medical Decision Making - Medical Decision Making The patient was seen and evaluated, history is obtained from the patient, at bedside as well as review of medical record 74-year-old gentleman who is morbidly obese, has multiple medical comorbidities is on multiple medications he's had multiple recent admissions for acute kidney injury and generalized weakness as well as hyperkalemia Patient had a fall today he has no obvious head trauma but given that he is having frequent falling and generalized weakness and head CT was obtained and results with no acute findings Labs were obtained and resulted with a can of chronic kidney disease, BUN significantly elevated at 92, patient is too weak to stand without assistance requires a 2 person assist to transition to chair due to his weakness and body habitus At this time I do not feel would be safe to send the patient home, I'm concerned about the safety of the patient caring for himself and for his who is attempted to help him with ambulation. Gentle IV fluids were ordered given patient's history of heart failure but evidence of elevated BUN Patient care was discussed with Dr. Wheeler who agrees with the plan for admission for acute on chronic kidney disease, generalized weakness due to elevated BUN Nephrology was consulted upon admission - Lab Data Result diagrams: 09/01/19 01:08 09/01/19 01:08 Lab Results 09/01/19 09/01/19 09/01/19 Range/Units 01:08 01:08 01:08 WBC 10.2 (3.8-10.6) k/uL RBC 3.48 L (4.30-5.90) m/uL Hgb 10.8 L (13.0-17.5) gm/dL Hct 34.0 L (39.0-53.0) % MCV 97.7 (80.0-100.0) fL MCH 31.1 (25.0-35.0) pg MCHC 31.9 (31.0-37.0) g/dL RDW 13.6 (11.5-15.5) % Plt Count 402 (150-450) k/uL Neutrophils % 80 % Lymphocytes % 6 % Monocytes % 7 % Eosinophils % 5 % Basophils % 1 % Neutrophils # 8.2 H (1.3-7.7) k/uL Lymphocytes # 0.6 L (1.0-4.8) k/uL Monocytes # 0.7 (0-1.0) k/uL Eosinophils # 0.5 (0-0.7) k/uL Basophils # 0.1 (0-0.2) k/uL PT 13.2 H (9.0-12.0) sec INR 1.3 H (<1.2) APTT 37.9 H (22.0-30.0) sec Sodium 131 L (137-145) mmol/L Potassium 5.5 H (3.5-5.1) mmol/L Chloride 94 L (98-107) mmol/L Carbon Dioxide 23 (22-30) mmol/L Anion Gap 14 mmol/L BUN 92 H (9-20) mg/dL Creatinine 3.36 H (0.66-1.25) mg/dL Est GFR (CKD-EPI)AfAm 20 (>60 ml/min/1.73 sqM) Est GFR (CKD-EPI)NonAf 17 (>60 ml/min/1.73 sqM) Glucose 144 H (74-99) mg/dL Plasma Lactic Acid Harman (0.7-2.0) mmol/L Calcium 9.1 (8.4-10.2) mg/dL Magnesium 2.9 H (1.6-2.3) mg/dL Total Bilirubin 0.9 (0.2-1.3) mg/dL AST 28 (17-59) U/L ALT 17 (4-49) U/L Alkaline Phosphatase 73 (38-126) U/L Creatine Kinase 80 (55-170) U/L Troponin I (0.000-0.034) ng/mL NT-Pro-B Natriuret Pep pg/mL Total Protein 7.4 (6.3-8.2) g/dL Albumin 3.9 (3.5-5.0) g/dL TSH 1.520 (0.465-4.680) mIU/L Urine Color Urine Appearance (Clear) Urine pH (5.0-8.0) Ur Specific [place] (1.001-1.035) Urine Protein (Negative) Urine Glucose (UA) (Negative) Urine Ketones (Negative) Urine Blood (Negative) Urine Nitrite (Negative) Urine Bilirubin (Negative) Urine Urobilinogen (<2.0) mg/dL Ur Leukocyte Esterase (Negative) 09/01/19 09/01/19 09/01/19 Range/Units 01:08 01:08 01:08 WBC (3.8-10.6) k/uL RBC (4.30-5.90) m/uL Hgb (13.0-17.5) gm/dL Hct (39.0-53.0) % MCV (80.0-100.0) fL MCH (25.0-35.0) pg MCHC (31.0-37.0) g/dL RDW (11.5-15.5) % Plt Count (150-450) k/uL Neutrophils % % Lymphocytes % % Monocytes % % Eosinophils % % Basophils % % Neutrophils # (1.3-7.7) k/uL Lymphocytes # (1.0-4.8) k/uL Monocytes # (0-1.0) k/uL Eosinophils # (0-0.7) k/uL Basophils # (0-0.2) k/uL PT (9.0-12.0) sec INR (<1.2) APTT (22.0-30.0) sec Sodium (137-145) mmol/L Potassium (3.5-5.1) mmol/L Chloride (98-107) mmol/L Carbon Dioxide (22-30) mmol/L Anion Gap mmol/L BUN (9-20) mg/dL Creatinine (0.66-1.25) mg/dL Est GFR (CKD-EPI)AfAm (>60 ml/min/1.73 sqM) Est GFR (CKD-EPI)NonAf (>60 ml/min/1.73 sqM) Glucose (74-99) mg/dL Plasma Lactic Acid Harman 1.6 (0.7-2.0) mmol/L Calcium (8.4-10.2) mg/dL Magnesium (1.6-2.3) mg/dL Total Bilirubin (0.2-1.3) mg/dL AST (17-59) U/L ALT (4-49) U/L Alkaline Phosphatase (38-126) U/L Creatine Kinase (55-170) U/L Troponin I <0.012 (0.000-0.034) ng/mL NT-Pro-B Natriuret Pep 1720 pg/mL Total Protein (6.3-8.2) g/dL Albumin (3.5-5.0) g/dL TSH (0.465-4.680) mIU/L Urine Color Urine Appearance (Clear) Urine pH (5.0-8.0) Ur Specific [place] (1.001-1.035) Urine Protein (Negative) Urine Glucose (UA) (Negative) Urine Ketones (Negative) Urine Blood (Negative) Urine Nitrite (Negative) Urine Bilirubin (Negative) Urine Urobilinogen (<2.0) mg/dL Ur Leukocyte Esterase (Negative) 09/01/19 Range/Units 02:36 WBC (3.8-10.6) k/uL RBC (4.30-5.90) m/uL Hgb (13.0-17.5) gm/dL Hct (39.0-53.0) % MCV (80.0-100.0) fL MCH (25.0-35.0) pg MCHC (31.0-37.0) g/dL RDW (11.5-15.5) % Plt Count (150-450) k/uL Neutrophils % % Lymphocytes % % Monocytes % % Eosinophils % % Basophils % % Neutrophils # (1.3-7.7) k/uL Lymphocytes # (1.0-4.8) k/uL Monocytes # (0-1.0) k/uL Eosinophils # (0-0.7) k/uL Basophils # (0-0.2) k/uL PT (9.0-12.0) sec INR (<1.2) APTT (22.0-30.0) sec Sodium (137-145) mmol/L Potassium (3.5-5.1) mmol/L Chloride (98-107) mmol/L Carbon Dioxide (22-30) mmol/L Anion Gap mmol/L BUN (9-20) mg/dL Creatinine (0.66-1.25) mg/dL Est GFR (CKD-EPI)AfAm (>60 ml/min/1.73 sqM) Est GFR (CKD-EPI)NonAf (>60 ml/min/1.73 sqM) Glucose (74-99) mg/dL Plasma Lactic Acid Harman (0.7-2.0) mmol/L Calcium (8.4-10.2) mg/dL Magnesium (1.6-2.3) mg/dL Total Bilirubin (0.2-1.3) mg/dL AST (17-59) U/L ALT (4-49) U/L Alkaline Phosphatase (38-126) U/L Creatine Kinase (55-170) U/L Troponin I (0.000-0.034) ng/mL NT-Pro-B Natriuret Pep pg/mL Total Protein (6.3-8.2) g/dL Albumin (3.5-5.0) g/dL TSH (0.465-4.680) mIU/L Urine Color Yellow Urine Appearance Clear (Clear) Urine pH 5.0 (5.0-8.0) Ur Specific [place] 1.009 (1.001-1.035) Urine Protein Negative (Negative) Urine Glucose (UA) Negative (Negative) Urine Ketones Negative (Negative) Urine Blood Negative (Negative) Urine Nitrite Negative (Negative) Urine Bilirubin Negative (Negative) Urine Urobilinogen <2.0 (<2.0) mg/dL Ur Leukocyte Esterase Negative (Negative) Disposition Clinical Impression: Chronic renal insufficiency, CHF (congestive heart failure), Bilateral leg edema, Weakness, Hyperkalemia, Hyponatremia, Hypermagnesemia, Chronic venous hypertension (idiopathic) with ulcer and inflammation of right lower extremity, Acute on chronic renal failure, Fall Disposition: ADMITTED IP TO THIS HOSP Condition: Serious Is patient prescribed a controlled substance at d/c from ED?: No
[2019-09-01 02:28] LABS: Albumin 3.9 g/dL (3.5-5.0); Calcium 9.1 mg/dL (8.4-10.2); Total Bilirubin 0.9 mg/dL (0.2-1.3); Total Protein 7.4 g/dL (6.3-8.2)
[2019-09-01] MEDS ORDERED: MORPHINE SULFATE 4 MG/ML SYRINGE IVP STA (02:39)
[2019-09-01 02:48] LABS: Appearance,Urine Clear (Clear); Bilirubin,Urine Negative (Negative); Blood,Urine Negative (Negative); Color,Urine Yellow; Glucose,Urine (UA) Negative (Negative); Ketones,Urine Negative (Negative); Leukocyte Esterase,Urine Negative (Negative); Nitrite,Urine Negative (Negative); Protein,Urine Negative (Negative); Specific Gravity,Urine 1.009 (1.001-1.035); Urobilinogen,Urine <2.0 mg/dL (<2.0)
[2019-09-01 02:49] LABS: Magnesium 2.9 mg/dL (1.6-2.3); Potassium 5.5 mmol/L (3.5-5.1)
[2019-09-01] MEDS ORDERED: NALOXONE 0.4 MG/ML 1 ML VIAL IV PRN (04:01)
[2019-09-01] MEDS ORDERED: GABAPENTIN 100 MG CAP PO ONE (04:15)
[2019-09-01] MEDS: SODIUM CHLORIDE 0.9% 1,000 ML IV SCH ×2 (04:48→15:18)
--- NOTE | 2019-09-01 05:56 | P.HPIM ---
History of Present Illness H&P Date: 09/01/19 Chief Complaint: Generalized weakness and fall 74-year-old male with multiple comorbidities CK D, A. fib on blood thinners, CAD, hypertension, chronic venous insufficiency and stasis ulcers of bilateral lower extremities Patient with frequent hospitalization over the past month due to same complaints of generalized weakness and falling. He reports that he is bed progressively weak over the past 3 days This time patient reports being discharged recently he was initially doing well and then gradually started feeling progressively weak and tired today while he was trying to use his walker he slipped and between due to weakness. He denies any chest pain or trouble breathing he denies any GI bleeding he denies any upper respiratory infection symptoms he denies any fevers or chills. His normally takes care of him and he has a visiting nurse however he saying that he is getting so weak that his is unable to help him get into a wheelchair or taken to the bathroom anymore however he is not willing to go to any skilled nursing for rehab and he is hoping to go home when he is feeling better. He claims to be compliant with his medications. In the ED blood work was done showed acute kidney injury on CK D with elevated BUNs CT of the head showed no acute pathology but did show chronic small vessel ischemia Potassium was 5.5 slightly elevated sodium 131 slightly low. Chronic anemia at 10.8. EKG sinus bradycardia with first-degree AV block patient has e chocardiogram from April 2019 showing EF of 5560 percent Review of Systems Pertinent positives as noted in HPI. All other systems were reviewed and are negative Past Medical History Past Medical History: Atrial Fibrillation, Coronary Artery Disease (CAD), Chest Pain / Angina, Heart Failure, Hyperlipidemia, Hypertension, Myocardial Infarction (PR), Osteoarthritis (OA), Renal Disease Additional Past Medical History / Comment(s): ? 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 pt stated has slept in recliner chair for past 10 years, uti ecoli 2013. gout in past, djd, lumbar disc disease. restless leg , leg cellulitis/swelling, falls/ Last Myocardial Infarction Date:: 2009 History of Any Multi-Drug Resistant Organisms: None Reported Date of last positivie culture/infection: 04/02/2018 MDRO Source:: leg wound Past Surgical History: Heart Catheterization With Stent, Tonsillectomy Additional Past Surgical History / Comment(s): [id number] stents, rt hand sx to repair severed lig/tendons(age 20) has limited use of index finger Past Anesthesia/Blood Transfusion Reactions: No Reported Reaction Additional Past Anesthesia/Blood Transfusion Reaction / Comment(s): bharat terphobia Date of Last Stent Placement:: 2009 Past Psychological History: No Psychological Hx Reported Smoking Status: Never smoker Past Alcohol Use History: None Reported Past Drug Use History: None Reported - Past Family History Mother Family Medical History: Cancer Additional Family Medical History / Comment(s): breast cancer, heart problems was on warfarin(pt stated she bled out) Father Family Medical History: Coronary Artery Disease (CAD), Myocardial Infarction (PR) Additional Family Medical History / Comment(s): Father had his 1st PR in his 50s and then from his 2nd PR at the age of 74yrs. Medications and Allergies Home Medications Medication Instructions Recorded Confirmed Type FLUoxetine HCL [PROzac] 20 mg PO DAILY@1000 07/03/13 08/20/19 History LORazepam [Ativan] 1 mg PO TID@0000,1000,169904/27/17 08/20/19 History Ranolazine [Ranexa] 1,000 mg PO BID@1000,219904/27/17 08/20/19 History oxyCODONE HCL [Roxicodone] 5 mg PO BID@1000,0 04/27/17 08/20/19 History Isosorbide Mononitrate ER [Imdur] 30 mg PO DAILY@1000 06/26/18 08/20/19 History Labetalol HCl [Trandate] 300 mg PO BID@1000,0 11/16/18 08/20/19 History Gabapentin [Neurontin] 100 mg PO TID@0000,1000,1700 05/07/19 08/20/19 History Iron Polysaccharide Complex 150 mg PO MOWEFR@219905/07/19 08/20/19 History [Myferon 150] Nitroglycerin Sl Tabs [Nitrostat] 0.4 mg SUBLINGUAL Q5M PRN 05/07/19 08/20/19 History Rivaroxaban [Xarelto] 15 mg PO DAILY@1700 05/07/19 08/20/19 History oxyCODONE HCL [Roxicodone] 10 mg PO DAILY@0000 05/07/19 08/20/19 History rOPINIRole HCL [Requip] 1 mg PO TID@0000,1000,1700 05/07/19 08/20/19 History Folic Acid 1 mg PO HS@2200 08/12/19 08/20/19 History Polyethylene Glycol 3350 [Miralax] 17 gm PO DAILY 08/12/19 08/20/19 History Cefdinir [Omnicef] 300 mg PO BID@1000,2200 08/20/19 08/20/19 History Sodium Bicarbonate Tab 650 mg PO BID@1000,2200 08/20/19 08/20/19 History Terazosin [Hytrin] 8 mg PO HS@0000 #120 cap 08/22/19 Rx Torsemide [Demadex] 80 mg PO DAILY #120 tablet 08/22/19 Rx Allergies Allergy/AdvReac Type Severity Reaction Status Date / Time pravastatin Allergy Rash/Hives Verified 09/01/19 00:45 amlodipine AdvReac CONSTIPATIO Verified 09/01/19 00:45 N atenolol AdvReac MALE ED Verified 09/01/19 00:45 hydrochlorothiazide AdvReac RENAL Verified 09/01/19 00:45 IMPAIRMENT Physical Exam Vitals: Vital Signs Temp Pulse Resp BP Pulse Ox 09/01/19 02:53 62 16 142/87 94 L 09/01/19 01:22 58 L 14 141/54 96 09/01/19 00:39 97.2 F L 58 L 18 141/54 96 Intake and Output 08/31/19 08/31/19 09/01/19 14:59 22:59 06:59 Other: Weight 117.934 kg Constitutional: No acute distress, conversant, pleasant Eyes: Anicteric sclerae, moist conjunctiva, Pupils equal round reactive to light ENMT: NC/AT Oropharynx clear, no erythema, or exudates Neck: Supple, FROM, no masses, or JVD No carotid bruits No thyromegaly Lungs: Clear to auscultation Clear to percussion Normal respiratory effort, no accessory muscle use Cardiovascular: Heart regular in rate and rhythm, No murmurs, gallops, or rubs No peripheral edema Abdominal: Soft Nontender, no guarding, rebound or rigidity Abdomen moving with respiration Normoactive bowel sounds No hepatomegaly, No splenomegaly No palpable mass Umbilical hernia soft reducible Skin: Bilateral legs with Dylan wrap, patient is known to have bilateral chronic venous stasis ulcers otherwise Normal temperature, tone, texture, turgor Extremities: No digital cyanosis No clubbing Pedal pulses weak and symmetrical Radial pulses intact and symmetrical No calf tenderness Psychiatric: Alert and oriented to person, place Appropriate affect fair judgement Neuro Muscles Strength 4/5 in all 4 extremities Sensation to light touch grossly present throughout Cranial nerves II-XII grossly intact No focal sensory deficits Lymphatics: no palpable cervical or supraclavicular , or inguinal lymph nodes Results CBC & Chem 7: 09/01/19 01:08 09/01/19 01:08 Labs: Abnormal Lab Results - Last 24 Hours (Table) 09/01/19 09/01/19 09/01/19 Range/Units 01:08 01:08 01:08 RBC 3.48 L (4.30-5.90) m/uL Hgb 10.8 L (13.0-17.5) gm/dL Hct 34.0 L (39.0-53.0) % Neutrophils # 8.2 H (1.3-7.7) k/uL Lymphocytes # 0.6 L (1.0-4.8) k/uL PT 13.2 H (9.0-12.0) sec INR 1.3 H (<1.2) APTT 37.9 H (22.0-30.0) sec Sodium 131 L (137-145) mmol/L Potassium 5.5 H (3.5-5.1) mmol/L Chloride 94 L (98-107) mmol/L BUN 92 H (9-20) mg/dL Creatinine 3.36 H (0.66-1.25) mg/dL Glucose 144 H (74-99) mg/dL Magnesium 2.9 H (1.6-2.3) mg/dL Assessment and Plan Assessment: Acute kidney injury on COPD Mild hyperkalemia Hyponatremia Progressive generalized weakness Fall at home Plan Gentle IV fluid hydration By mouth bicarb Nephro consultation Monitor electrolytes closely Avoid nephrotoxic meds Monitor urine output Chronic conditions A. fib on anticoagulation, this should be reviewed carefully with consideration should be made for benefits and risks as patient is a high fall risk Hypertension CK D Chronic venous insufficiency with stasis ulcer bilaterally currently with Dylan wrapping of bilateral legs CAD Hyperlipidemia Obesity Obstructive sleep apnea Please verify home medications Preformed a thorough record review from recent hospitalization frequent hospitalization over the past 30 days for same complaint of generalized weakness and acute kidney injury on CK D CODE STATUS: Full code* DVT prophylaxis: Patient on anticoagulation for A. fib Discussed with: Patient, ER, RN Anticipated length of stay more than [address]: Pending clinical course consideration should be made for subacute rehab A total of 75 minutes was spent on the care of this complex patient more than 50% of the time was spent in counseling and care coordination.
[2019-09-01 07:06] LABS: Glucose,Whole Blood 103 mg/dL (75-99)
--- NOTE | 2019-09-01 10:17 | P.NPCON ---
History of Present Illness - Reason for Consult acute renal failure, chronic renal failure - History of Present Illness Reason for consultation: Acute kidney injury on chronic kidney disease History of present illness: Patient is a 74-year-old male seen in renal consultation for acute kidney injury on chronic kidney disease. Patient has chronic kidney disease stage IV secondary to nephrosclerosis with baseline creatinine in the range of 2.5-3. Creatinine was 3.36 on admission. Labs from today are pending. He is maintained on IV fluids. Patient presented to the hospital due to generalized weakness. He sustained a fall at home. He denies hitting his head. EMS was called by the family to bring him to the hospital. No acute changes were noted on head CT. No fractures noted. No significant fluid overload noted on chest x-ray. Oral intake has been good. He has been voiding. Denies hematuria or dysuria. UA is benign. Patient has history of diastolic CHF with mild to moderate mitral regurgitation, moderate tricuspid regurgitation and severe pulmonary hypertension. Ultrasound from July 2019 revealed no evidence of hydronephrosis. Diuretics are currently held. He is receiving IV fluids. Hemodynamically stable. No fever or chills. Vital signs are stable. General: The patient appeared well nourished and normally developed. HEENT: Head exam is unremarkable. Neck is without jugular venous distension. LUNGS: Lungs are clear to auscultation and percussion. Breath sounds decreased. HEART: Rate and Rhythm are regular. Murmur noted. ABDOMEN: Soft, nontender. EXTREMITITES: 1+ edema. Lower extremities are wrapped. Past Medical History Past Medical History: Atrial Fibrillation, Coronary Artery Disease (CAD), Chest Pain / Angina, Heart Failure, Hyperlipidemia, Hypertension, Myocardial Infarction ([place]), Osteoarthritis (OA), Renal Disease Additional Past Medical History / Comment(s): ? 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 pt stated has slept in recliner chair for past 10 years, uti ecoli 2013. gout in past, djd, lumbar disc disease. restless leg , leg cellulitis/swelling, falls/ Last Myocardial Infarction Date:: 2009 History of Any Multi-Drug Resistant Organisms: None Reported Date of last positivie culture/infection: 04/02/2018 MDRO Source:: leg wound Past Surgical History: Heart Catheterization With Stent, Tonsillectomy Additional Past Surgical History / Comment(s): [id number] stents, rt hand sx to repair severed lig/tendons(age 20) has limited use of index finger Past Anesthesia/Blood Transfusion Reactions: No Reported Reaction Additional Past Anesthesia/Blood Transfusion Reaction / Comment(s): clausterphobia Date of Last Stent Placement:: 2009 Past Psychological History: No Psychological Hx Reported Smoking Status: Never smoker Past Alcohol Use History: None Reported Past Drug Use History: None Reported - Past Family History Mother Family Medical History: Cancer Additional Family Medical History / Comment(s): breast cancer, heart problems wa s on warfarin(pt stated she bled out) Father Family Medical History: Coronary Artery Disease (CAD), Myocardial Infarction ([place]) Additional Family Medical History / Comment(s): Father had his 1st OH in his 50s and then from his 2nd OH at the age of 74yrs. Medications and Allergies Home Medications Medication Instructions Recorded Confirmed Type FLUoxetine HCL [PROzac] 20 mg PO DAILY@1000 07/03/13 09/01/19 History LORazepam [Ativan] 1 mg PO TID@0000,1000,169904/27/17 09/01/19 History Ranolazine [Ranexa] 1,000 mg PO BID@1000,219904/27/17 09/01/19 History oxyCODONE HCL [Roxicodone] 5 mg PO BID@1000,0 04/27/17 09/01/19 History Isosorbide Mononitrate ER [Imdur] 30 mg PO DAILY@1000 06/26/18 09/01/19 History Labetalol HCl [Trandate] 300 mg PO BID@1000,0 11/16/18 09/01/19 History Gabapentin [Neurontin] 100 mg PO TID@0000,1000,1700 05/07/19 09/01/19 History Iron Polysaccharide Complex 150 mg PO MOWEFR@219905/07/19 09/01/19 History [Myferon 150] Nitroglycerin Sl Tabs [Nitrostat] 0.4 mg SUBLINGUAL Q5M PRN 05/07/19 09/01/19 History Rivaroxaban [Xarelto] 15 mg PO DAILY@1700 05/07/19 09/01/19 History oxyCODONE HCL [Roxicodone] 10 mg PO DAILY@0000 05/07/19 09/01/19 History rOPINIRole HCL [Requip] 1 mg PO TID@0000,1000,1700 05/07/19 09/01/19 History Folic Acid 1 mg PO HS@2200 08/12/19 09/01/19 History Polyethylene Glycol 3350 [Miralax] 17 gm PO DAILY 08/12/19 09/01/19 History Sodium Bicarbonate Tab 650 mg PO BID@1000,2200 08/20/19 09/01/19 History Terazosin [Hytrin] 8 mg PO HS@0000 #120 cap 08/22/19 09/01/19 Rx Torsemide [Demadex] 80 mg PO DAILY@1000 09/01/19 09/01/19 History Allergies Allergy/AdvReac Type Severity Reaction Status Date / Time pravastatin Allergy Rash/Hives Verified 09/01/19 08:11 amlodipine AdvReac CONSTIPATIO Verified 09/01/19 08:11 N atenolol AdvReac MALE ED Verified 09/01/19 08:11 hydrochlorothiazide AdvReac RENAL Verified 09/01/19 08:11 IMPAIRMENT Physical Exam Vitals: Vital Signs Temp Pulse Resp BP BP Pulse Ox 09/01/19 06:11 96.7 F L 16 143/64 95 09/01/19 04:50 98.6 F 56 L 18 131/49 95 09/01/19 02:53 62 16 142/87 94 L 09/01/19 01:22 58 L 14 141/54 96 09/01/19 00:39 97.2 F L 58 L 18 141/54 96 Intake and Output 08/31/19 09/01/19 09/01/19 22:59 06:59 14:59 Output Total 500 Balance -500 Output: Urine 500 Other: Weight 117.934 kg Results - Lab Results Most recent lab results Calcium 9.1 mg/dL (8.4-10.2) 09/01/19 01:08 Magnesium 2.9 mg/dL (1.6-2.3) H 09/01/19 01:08 09/01/19 01:08 09/01/19 01:08 Assessment and Plan Plan: Assessment: 1. Acute kidney injury mostly prerenal secondary to diuresis. Creatinine 3.36. Rule out urinary retention. UA benign. 2. Chronic kidney disease stage IV with baseline creatinine in the range of 2.5-3 secondary to nephrosclerosis. 3. Hyperkalemia secondary to chronic kidney disease. However this was a hemolyzed sample. 4. Hyponatremia secondary to chronic kidney disease. 5. Status post fall. No evidence of hypotension. 6. Chronic diastolic CHF with mild to moderate mitral regurgitation, moderate tricuspid regurgitation. 7. Severe pulmonary hypertension. 8. Metabolic acidosis secondary to chronic kidney disease maintained on oral sodium bicarbonate. Plan: Maintain normal saline at 75 mL an hour. However need to be cautious with IV fluids due to patient's underlying CHF. Diuretics will likely need to be resumed in the next 24-48 hours. Follow-up morning labs. Check bladder scan to rule out urinary retention. Continue to monitor renal function and urine output. Thank you for the consultation. I will continue to follow the patient with you during his hospital stay.
[2019-09-01 10:25] LABS: Calcium 8.9 mg/dL (8.4-10.2); Magnesium 2.7 mg/dL (1.6-2.3)
[2019-09-01] MEDS: SODIUM BICARBONATE TAB 650 MG TAB PO SCH ×2 (10:30→20:52)
[2019-09-01 11:49] LABS: Glucose,Whole Blood 167 mg/dL (75-99)
[2019-09-01] MEDS ORDERED: traMADol 50 MG TAB PO STA (15:03)
--- NOTE | 2019-09-01 15:04 | US ---
EXAMINATION TYPE: US venous doppler duplex LE DATE OF EXAM: 09/01/2019 2:41 PM COMPARISON: NONE CLINICAL HISTORY: RLE pain. SIDE PERFORMED: Bilateral TECHNIQUE: The lower extremity deep venous system is examined utilizing real time linear array sonog pastora with graded compression, doppler sonography and color-flow sonography. VESSELS IMAGED: External Iliac Vein (EIV) Common Femoral Vein Deep Femoral Vein Greater Saphenous Vein * Femoral Vein Popliteal Vein Small Saphenous Vein * Proximal Calf Veins (* superficial vessels) Technically difficult exam performed portably. Limited compression imaging on right leg, additional c olor imaging performed. Right Leg: Negative for DVT Left Leg: Negative for DVT IMPRESSION: No evidence for DVT at this time.
[2019-09-01] MEDS ORDERED: RIVAROXABAN 15 MG TAB PO SCH (17:00)
[2019-09-01 17:06] LABS: Glucose,Whole Blood 227 mg/dL (75-99)
[2019-09-01] MEDS: GABAPENTIN 100 MG CAP PO SCH ×2 (17:15→23:47)
[2019-09-01 19:57] LABS: Glucose,Whole Blood 180 mg/dL (75-99)
[2019-09-01] MEDS: RANOLAZINE 500 MG TAB.ER.12H PO SCH (20:52)
[2019-09-01] MEDS: LABETALOL 100 MG TAB PO SCH (20:53)
[2019-09-01 21:08] VITALS: RESP 16
[2019-09-02] MEDS ORDERED: DOXAZOSIN 4 MG TAB PO SCH
--- NOTE | 2019-09-02 00:16 | P.CONS ---
History of Present Illness - Reason for Consult Consult date: 09/01/19 Right lower extremity wound and cellulitis Requesting physician: Peterson Brink - Chief Complaint right leg pain and redness x few days - History of Present Illness Patient is 74-year-old male with a past medical history significant for chronic renal insufficiency this patient also have a history of chronic lower extremity venous stasis dermatitis right greater than left and some superficial laceration patient has been brought into the ER by EMS after apparently the patient did have a fall at home patients over the last few days his been feeling very weak and tired and no energy has been trying to drink more water to keep himself hydrated however he didn't fell down and his was unable to get him up as EMS was called and the patient was brought into the hospital on arrival to the ER the patient has been afebrile but did not have elevated white count. He'll be complaining of more pain and discomfort in the right leg over the last few days patient describing the pain to be more of a sharp and throbbing about 10 out of 10 in severity with no radiation he also have some facial laceration to the right leg but no significant purulent drainage and infection disease was consulted for possible right lower extremity cellulitis and local wound care Review of Systems Positive point has been mentioned in the HPI rest of the systems are negative Past Medical History Past Medical History: Atrial Fibrillation, Coronary Artery Disease (CAD), Chest Pain / Angina, Heart Failure, Hyperlipidemia, Hypertension, Myocardial Infarction ([place]), Osteoarthritis ([place]), Renal Disease Additional Past Medical History / Comment(s): ? 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 pt stated has slept in recliner chair for past 10 years, uti ecoli 2013. gout in past, djd, lumbar disc disease. restless leg , leg cellulitis/swelling, falls/ Last Myocardial Infarction Date:: 2009 History of Any Multi-Drug Resistant Organisms: None Reported Year Discovered:: 04/02/2018 MDRO Source:: leg wound Past Surgical History: Heart Catheterization With Stent, Tonsillectomy Additional Past Surgical History / Comment(s): [id number] stents, rt hand sx to repair severed lig/tendons(age 20) has limited use of index finger Past Anesthesia/Blood Transfusion Reactions: No Reported Reaction Additional Past Anesthesia/Blood Transfusion Reaction / Comm: clausterphobia Date of Last Stent Placement:: 2009 Past Psychological History: No Psychological Hx Reported Additional Psychological History / Comment(s): PT RESIDES WITH HIS SPOUSE. PT SERVED IN THE [employer] WHEN YOUNGER ([employer]) AND AFTERWARDS WORKED FOR [employer]. HE USES A WHEELCHAIR PRN. HE DRIVES. HE SLEEPS IN A RECLINER. Smoking Status: Never smoker Past Alcohol Use History: None Reported Additional Past Alcohol Use History / Comment(s): Patient is a lifelong nonsmoker. He denies any marijuana or illicit drug use. He denies any alcohol use. He lives at home with his in their cats in the home. 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 He has been on disability and served in [employer] for 2 years in the [employer] for 7 years. Past Drug Use History: None Reported - Past Family History Mother Family Medical History: Cancer Additional Family Medical History / Comment(s): breast cancer, heart problems wa s on warfarin(pt stated she bled out) Father Family Medical History: Coronary Artery Disease (CAD), Myocardial Infarction ([place]) Additional Family Medical History / Comment(s): Father had his 1st LA in his 50s and then from his 2nd LA at the age of 74yrs. Medications and Allergies Home Medications Medication Instructions Recorded Confirmed Type FLUoxetine HCL [PROzac] 20 mg PO DAILY@1000 07/03/13 09/01/19 History LORazepam [Ativan] 1 mg PO TID@0000,1000,169904/27/17 09/01/19 History Ranolazine [Ranexa] 1,000 mg PO BID@1000,219904/27/17 09/01/19 History oxyCODONE HCL [Roxicodone] 5 mg PO BID@1000,169904/27/17 09/01/19 History Isosorbide Mononitrate ER [Imdur] 30 mg PO DAILY@1000 06/26/18 09/01/19 History Labetalol HCl [Trandate] 300 mg PO BID@1000,219911/16/18 09/01/19 History Gabapentin [Neurontin] 100 mg PO TID@0000,1000,1700 05/07/19 09/01/19 History Iron Polysaccharide Complex 150 mg PO MOWEFR@219905/07/19 09/01/19 History [Myferon 150] Nitroglycerin Sl Tabs [Nitrostat] 0.4 mg SUBLINGUAL Q5M PRN 05/07/19 09/01/19 History Rivaroxaban [Xarelto] 15 mg PO DAILY@1700 05/07/19 09/01/19 History oxyCODONE HCL [Roxicodone] 10 mg PO DAILY@0000 05/07/19 09/01/19 History rOPINIRole HCL [Requip] 1 mg PO TID@0000,1000,1700 05/07/19 09/01/19 History Folic Acid 1 mg PO HS@2200 08/12/19 09/01/19 History Polyethylene Glycol 3350 [Miralax] 17 gm PO DAILY 08/12/19 09/01/19 History Sodium Bicarbonate Tab 650 mg PO BID@1000,2200 08/20/19 09/01/19 History Terazosin [Hytrin] 8 mg PO HS@0000 #120 cap 08/22/19 09/01/19 Rx Torsemide [Demadex] 80 mg PO DAILY@1000 09/01/19 09/01/19 History Allergies Allergy/AdvReac Type Severity Reaction Status Date / Time pravastatin Allergy Rash/Hives Verified 09/01/19 08:11 amlodipine AdvReac CONSTIPATIO Verified 09/01/19 08:11 N atenolol AdvReac MALE ED Verified 09/01/19 08:11 hydrochlorothiazide AdvReac RENAL Verified 09/01/19 08:11 IMPAIRMENT Physical Exam Vitals: Vital Signs Temp Pulse Pulse Resp BP BP Pulse Ox 09/01/19 13:00 97.5 F L 54 L 19 135/55 97 09/01/19 06:11 96.7 F L 16 143/64 95 09/01/19 04:50 98.6 F 56 L 18 131/49 95 09/01/19 02:53 62 16 142/87 94 L 09/01/19 01:22 58 L 14 141/54 96 09/01/19 00:39 97.2 F L 58 L 18 141/54 96 Intake and Output 09/01/19 09/01/19 09/01/19 06:59 14:59 22:59 Output Total 2250 Balance -2250 Output: Urine 1875 Post Void Residual 375 Other: Voiding Method Urinal Urinal Weight 117.934 kg GENERAL DESCRIPTION: Elderly male up in the chair, no distress. No tachypnea or accessory muscle of respiration use. HEENT: Shows Pallor , no scleral icterus. Oral mucous membrane is dry. No pharyngeal erythema or thrush NECK: Trachea central, no thyromegaly. LUNGS: Unlabored breathing. Clear to auscultation anteriorly. No wheeze or crackle. HEART: S1, S2, regular rate and rhythm. No loud murmur ABDOMEN: Soft, no tenderness , guarding or rigidity, no organomegaly EXTREMITIES: Bilateral lower extremity with swelling right greater than left he did some superficial ulceration and minimal erythema and warmth to the right leg SKIN: No rash, no masses palpable. NEUROLOGICAL: The patient is awake, alert, oriented x3, mood and affect normal. Results CBC & Chem 7: 09/01/19 01:08 09/01/19 09:16 Labs: Abnormal Lab Results - Last 24 Hours (Table) 09/01/19 09/01/19 09/01/19 Range/Units 01:08 01:08 01:08 RBC 3.48 L (4.30-5.90) m/uL Hgb 10.8 L (13.0-17.5) gm/dL Hct 34.0 L (39.0-53.0) % Neutrophils # 8.2 H (1.3-7.7) k/uL Lymphocytes # 0.6 L (1.0-4.8) k/uL PT 13.2 H (9.0-12.0) sec INR 1.3 H (<1.2) APTT 37.9 H (22.0-30.0) sec Sodium 131 L (137-145) mmol/L Potassium 5.5 H (3.5-5.1) mmol/L Chloride 94 L (98-107) mmol/L BUN 92 H (9-20) mg/dL Creatinine 3.36 H (0.66-1.25) mg/dL Glucose 144 H (74-99) mg/dL POC Glucose (mg/dL) (75-99) mg/dL Magnesium 2.9 H (1.6-2.3) mg/dL 09/01/19 09/01/19 09/01/19 Range/Units 07:04 09:16 11:47 RBC (4.30-5.90) m/uL Hgb (13.0-17.5) gm/dL Hct (39.0-53.0) % Neutrophils # (1.3-7.7) k/uL Lymphocytes # (1.0-4.8) k/uL PT (9.0-12.0) sec INR (<1.2) APTT (22.0-30.0) sec Sodium 131 L (137-145) mmol/L Potassium (3.5-5.1) mmol/L Chloride 97 L (98-107) mmol/L BUN 85 H (9-20) mg/dL Creatinine 3.25 H (0.66-1.25) mg/dL Glucose 124 H (74-99) mg/dL POC Glucose (mg/dL) 103 H 167 H (75-99) mg/dL Magnesium 2.7 H (1.6-2.3) mg/dL 09/01/19 Range/Units 17:03 RBC (4.30-5.90) m/uL Hgb (13.0-17.5) gm/dL Hct (39.0-53.0) % Neutrophils # (1.3-7.7) k/uL Lymphocytes # (1.0-4.8) k/uL PT (9.0-12.0) sec INR (<1.2) APTT (22.0-30.0) sec Sodium (137-145) mmol/L Potassium (3.5-5.1) mmol/L Chloride (98-107) mmol/L BUN (9-20) mg/dL Creatinine (0.66-1.25) mg/dL Glucose (74-99) mg/dL POC Glucose (mg/dL) 227 H (75-99) mg/dL Magnesium (1.6-2.3) mg/dL Assessment and Plan Assessment: 1- patient with bilateral lower extremity venous stasis dermatitis right greater than left with concern for possible cellulitis right lower extremity which seemed to be more painful did have mild erythema slightly warm to touch likely from gram-positive skin kehinde 2- patient with renal insufficiency and high risk of nephrotoxicity from some antibiotics (1) Cellulitis of right leg Current Visit: Yes Status: Acute Code(s): L03.115 - CELLULITIS OF RIGHT LOWER LIMB SNOMED Code(s): 367092617 Plan: 1- we will start the patient cefazolin 2 g every 12 hours and dose has been adjusted to the kidney function 2- Aquacel silver dressing to the open area and mild ascending for compression We will follow on clinical condition and cultures to further adjust medication if needed Thank you for this consultation will follow this patient with you Time with Patient: Greater than 30
[2019-09-02 03:17] LABS: Glucose,Whole Blood 131 mg/dL (75-99)
[2019-09-02] MEDS: SODIUM CHLORIDE 0.9% 1,000 ML IV SCH (05:07)
[2019-09-02 07:02] LABS: Calcium 8.7 mg/dL (8.4-10.2); Magnesium 2.8 mg/dL (1.6-2.3); Potassium 4.8 mmol/L (3.5-5.1)
[2019-09-02 07:18] LABS: Glucose,Whole Blood 115 mg/dL (75-99)
[2019-09-02] MEDS ORDERED: TORSEMIDE 20 MG TAB PO SCH (10:00)
[2019-09-02] MEDS ORDERED: ISOSORBIDE MONONITRATE ER 30 MG TAB.ER.24H PO SCH (10:00)
[2019-09-02] MEDS ORDERED: FLUoxetine HCL 20 MG CAP PO SCH (10:00)
[2019-09-02] MEDS: LABETALOL 100 MG TAB PO SCH (10:07)
[2019-09-02] MEDS: SODIUM BICARBONATE TAB 650 MG TAB PO SCH (10:08)
[2019-09-02] MEDS: GABAPENTIN 100 MG CAP PO SCH (10:08)
[2019-09-02] MEDS: RANOLAZINE 500 MG TAB.ER.12H PO SCH (10:08)
[2019-09-02 11:21] LABS: Glucose,Whole Blood 101 mg/dL (75-99)
--- NOTE | 2019-09-02 11:48 | P.PN ---
Subjective Patient is seen in follow-up for acute kidney injury on chronic kidney disease. Patient has chronic kidney disease stage IV secondary to nephrosclerosis with baseline creatinine the range of 2.5-3. Renal function better. No vomiting or diarrhea. Oral intake is fair but he doesn't like the food in the hospital. He has been voiding. No chest pain or shortness of breath. Vital signs are stable. General: The patient appeared well nourished and normally developed. HEENT: Head exam is unremarkable. Neck is without jugular venous distension. LUNGS: Breath sounds decreased. HEART: Rate and Rhythm are regular. ABDOMEN: Soft, nontender. EXTREMITITES: 2+ edema. Chronic changes noted. Objective - Vital Signs Vital signs: Vital Signs Temp 98.7 F 09/02/19 05:00 Pulse 52 L 09/02/19 05:00 Resp 16 09/02/19 05:00 BP 173/77 09/02/19 05:00 Pulse Ox 95 09/02/19 05:00 Intake & Output 09/01/19 09/02/19 09/02/19 18:59 06:59 18:59 Intake Total 590 Output Total 2250 700 800 Balance -2250 -110 -800 Intake: Oral 590 Output: Urine 1875 700 800 Post Void Residual 375 Other: Voiding Method Urinal Urinal Urinal - Labs CBC & Chem 7: 09/01/19 01:08 09/02/19 05:59 Labs: Abnormal Lab Results - Last 24 Hours (Table) 09/01/19 09/01/19 09/01/19 Range/Units 11:47 17:03 19:55 Sodium (137-145) mmol/L BUN (9-20) mg/dL Creatinine (0.66-1.25) mg/dL Glucose (74-99) mg/dL POC Glucose (mg/dL) 167 H 227 H 180 H (75-99) mg/dL Magnesium (1.6-2.3) mg/dL 09/02/19 09/02/19 09/02/19 Range/Units 03:14 05:59 07:04 Sodium 132 L (137-145) mmol/L BUN 72 H (9-20) mg/dL Creatinine 2.88 H (0.66-1.25) mg/dL Glucose 124 H (74-99) mg/dL POC Glucose (mg/dL) 131 H 115 H (75-99) mg/dL Magnesium 2.8 H (1.6-2.3) mg/dL 09/02/19 Range/Units 11:11 Sodium (137-145) mmol/L BUN (9-20) mg/dL Creatinine (0.66-1.25) mg/dL Glucose (74-99) mg/dL POC Glucose (mg/dL) 101 H (75-99) mg/dL Magnesium (1.6-2.3) mg/dL Assessment and Plan Plan: Assessment: 1. Acute kidney injury mostly prerenal secondary to diuresis. Creatinine 3.36 on admission and is 2.88 today. UA benign. 2. Chronic kidney disease stage IV with baseline creatinine in the range of 2.5-3 secondary to nephrosclerosis. 3. Hyperkalemia secondary to chronic kidney disease. However this was a hemolyzed sample. Now normal. 4. Hyponatremia secondary to chronic kidney disease. Better. 5. Status post fall. No evidence of hypotension. 6. Chronic diastolic CHF with mild to moderate mitral regurgitation, moderate tricuspid regurgitation. 7. Severe pulmonary hypertension. 8. Metabolic acidosis secondary to chronic kidney disease maintained on oral sodium bicarbonate. Plan: Hep-Lock IV fluids. Anticipate discharge soon. I will decrease dose of torsemide to 60 mg daily. Repeat BMP and magnesium level 2-3 days postdischarge. Follow up outpatient in 1-2 weeks.
[2019-09-02 11:51] VITALS: BP 124/54; PULSE 53; TEMP 98.2
--- NOTE | 2019-09-02 13:08 | PN ---
PROGRESS NOTE DATE OF SERVICE: 09/02/2019 REASON FOR FOLLOWUP: Right lower extremity venostasis ulcer and cellulitis. INTERVAL HISTORY: Patient is currently afebrile. The patient is feeling better. Breathing comfortably. Overall pain and discomfort to the right leg has improved. No chest pain or cough. No abdominal pain or diarrhea and wants to go home. PHYSICAL EXAMINATION: Blood pressure 124/54 with a pulse of 53, temperature 98.2, he is 98% on room air. General description is an elderly male, up in the chair in no distress. RESPIRATORY SYSTEM: Unlabored breathing, clear to auscultation anteriorly. HEART: S1, S2. Regular rate and rhythm. ABDOMEN: Soft. No tenderness. Right leg swelling persists, redness has slightly decreased. LABS: Creatinine is down to 2.88. DIAGNOSTIC IMPRESSION AND PLAN: Patient with acute right lower extremity cellulitis. This patient did have diffuse swelling, redness and some evidence of venostasis likely streptococcal disease, clinically responding to cefazolin with a plan to finish therapy with oral Keflex. Continue supportive care. MMODL / IJN: [id number] /
[2019-09-02 14:17] VITALS: BMI 38.4
[2019-09-03] MEDS ORDERED: TORSEMIDE 20 MG TAB PO SCH (10:00)
--- NOTE | 2019-09-03 16:40 | P.DS ---
Providers Date of admission: 09/01/19 04:09 Expected date of discharge: 09/02/19 Attending physician: Lee De La Torre MD Consults: 09/01/19 04:02 Consult Physician Urgent Consulting Provider: Ehsan Barrientos Consult Reason/Comments: EMMA Do you want consulting provider notified?: Yes 09/01/19 16:08 Consult Physician Routine Consulting Provider: Polo Alcantara Consult Reason/Comments: RLE ulcers Do you want consulting provider notified?: Yes Primary care physician: Jerod Braun MD Hospital Course: 74-year-old male with PMH of CKG stage III, paroxysmal atrial fibrillation, hypertension presented to the ED for generalized weakness after a fall. He was recently discharged on 08/22/2019 after being treated for acute kidney injury on chronic kidney disease. He was also advised to complete his course of cefdinir that was prescribed to him in the outpatient setting. Patient reports feeling great after his discharge but progressive decline and generalized weakness thereafter over the coming days. According to him, he has been noncompliant with his renal diet and salt intake, prefers to eat fast food. Patient is unsure if he picked up torsemide that he was discharged on last time. He has been refusing to work with physical therapy. Infectious disease was consulted for his chronic right lower extremity draining wound and he was started on cefazolin. There were no signs of active infection. Nephrology was consulted and recommended hydration at 75 mL of normal saline per hour. Venous Doppler was negative for DVT. Patient was seen and examined. No acute events overnight. Patient reports improvement in his symptoms. He is requesting discharge today. He denies any chest pain, shortness of breath or palpitations. No nausea or vomiting. No fe kleber or chills. General: [non toxic], [no distress], [appears at stated age] Derm: [warm], [dry] Head: [atraumatic], [normocephalic], [symmetric] Eyes: [EOMI], [no lid lag], [anicteric sclera] Mouth: [no lip lesion], [mucus membranes moist] Cardiovascular: [S1S2 irregular], [no murmur], [positive DP pulse bilateral], Lungs: [CTA bilateral], [no rhonchi, no rales] , [no accessory muscle use] Abdominal: [soft], [ nontender to palpation], [no guarding], [no appreciable organomegaly] Ext: [no gross muscle atrophy], [bilateral lower extremity chronic venous insufficiency], [no contractures] Neuro: [no focal neuro deficits] Psych: [Alert], [oriented], [appropriate affect] Acute kidney injury on chronic kidney disease stage III Chronic venous insufficiency and chronic right leg draining ulcer Hypovolemic hyponatremia Paroxysmal atrial fibrillation Hypertension Patient's BUN has improved from 92-72 with IV hydration. His creatinine has improved from 3.36-2.88 with IV hydration. Dietitian has been consulted to go over renal diet with the patient. Torsemide dose will be decreased from 80 mg to 60 mg daily. He will need to follow-up with nephrology in the outpatient setting. We will discharge the patient home to complete a total of 7 days of Keflex. His hyponatremia has been improving with IV hydration. He has been rate controlled on labetalol while inpatient. He is on Xarelto for anticoagulation. His blood pressure has been running somewhat high with SBP as high as 173. This blood pressure was taken prior to morning medication. Otherwise, his SPEP has been between 135 and 157. He will be continued on Imdur and labetalol. Patient is advised to follow-up with his PCP for further adjustment of his antihypertensive medication. Patient verbalized understanding of the plan. This complex discharge took about 35 minutes to complete. Pertinent Studies: Chest x-ray, head CT, CT C-spine, venous Doppler Patient Condition at Discharge: Stable Plan - Discharge Summary Discharge Rx Participant: No New Discharge Prescriptions: New Torsemide [Demadex] 60 mg PO DAILY@1000 tab Cephalexin [Keflex] 500 mg PO Q6HR 7 Days #28 cap Continue FLUoxetine HCL [PROzac] 20 mg PO DAILY@1000 oxyCODONE HCL [Roxicodone] 5 mg PO BID@1000,1700 Ranolazine [Ranexa] 1,000 mg PO BID@1000,2200 LORazepam [Ativan] 1 mg PO TID@0000,1000,1700 Isosorbide Mononitrate ER [Imdur] 30 mg PO DAILY@1000 Labetalol HCl [Trandate] 300 mg PO BID@1000,2200 Gabapentin [Neurontin] 100 mg PO TID@0000,1000,1700 oxyCODONE HCL [Roxicodone] 10 mg PO DAILY@0000 Rivaroxaban [Xarelto] 15 mg PO DAILY@1700 rOPINIRole HCL [Requip] 1 mg PO TID@0000,1000,1699 Nitroglycerin Sl Tabs [Nitrostat] 0.4 mg SUBLINGUAL Q5M PRN PRN Reason: Chest Pain Iron Polysaccharide Complex [Myferon 150] 150 mg PO MOWEFR@220 Folic Acid 1 mg PO HS@220 Polyethylene Glycol 3350 [Miralax] 17 gm PO DAILY Sodium Bicarbonate Tab 650 mg PO BID@1000,2199 Terazosin [Hytrin] 8 mg PO HS@0000 #120 cap Discontinued Torsemide [Demadex] 80 mg PO DAILY@1000 Discharge Medication List FLUoxetine HCL [PROzac] 20 mg PO DAILY@1000 07/03/13 [History] LORazepam [Ativan] 1 mg PO TID@0000,1000,1700 04/27/17 [History] Ranolazine [Ranexa] 1,000 mg PO BID@1000,219904/27/17 [History] oxyCODONE HCL [Roxicodone] 5 mg PO BID@1000,17004/27/17 [History] Isosorbide Mononitrate ER [Imdur] 30 mg PO DAILY@1000 06/26/18 [History] Labetalol HCl [Trandate] 300 mg PO BID@1000,219911/16/18 [History] Gabapentin [Neurontin] 100 mg PO TID@0000,1000,1700 05/07/19 [History] Iron Polysaccharide Complex [Myferon 150] 150 mg PO MOWEFR@219905/07/19 [History] Nitroglycerin Sl Tabs [Nitrostat] 0.4 mg SUBLINGUAL Q5M PRN 05/07/19 [History] Rivaroxaban [Xarelto] 15 mg PO DAILY@169905/07/19 [History] oxyCODONE HCL [Roxicodone] 10 mg PO DAILY@05/07/19 [History] rOPINIRole HCL [Requip] 1 mg PO TID@0000,1000,1700 05/07/19 [History] Folic Acid 1 mg PO HS@219908/12/19 [History] Polyethylene Glycol 3350 [Miralax] 17 gm PO DAILY 08/12/19 [History] Sodium Bicarbonate Tab 650 mg PO BID@1000,2200 08/20/19 [History] Terazosin [Hytrin] 8 mg PO HS@0000 #120 cap 08/22/19 [Rx] Cephalexin [Keflex] 500 mg PO Q6HR 7 Days #28 cap 09/02/19 [Rx] Torsemide [Demadex] 60 mg PO DAILY@1000 tab 09/02/19 [Rx] Follow up Appointment(s)/Referral(s): Jerod Braun MD [Primary Care Provider] - 09/18/19 10:30 am Ehsan Barrientos DO [STAFF PHYSICIAN] - 1 Week (Office closed at time of discharge, patient to call to self schedule.) Ambulatory/Diagnostic Orders: Basic Metabolic Panel [LAB.AMB] Time Frame: 3 Days, Location: None Selected Magnesium [LAB.AMB] Time Frame: 3 Days, Location: None Selected Patient Instructions/Handouts: Cephalexin (By mouth), Chronic Kidney Disease Diet (DC), Dialysis Diet (DC), Weakness (DC), Venous Insufficiency (DC) Activity/Diet/Wound Care/Special Instructions: Diet: Low-salt, renal Follow-up PCP within 3 days of discharge. Follow-up with nephrology within 1 week of discharge. Take all medications as advised. Discharge Disposition: HOME SELF-CARE
== END 2019-09-02 14:44 | disposition home or self-care (01) ==
LOC: EC 00:37 → 5NMEDONC 04:09 → EC 05:26
PROVIDERS: ADMIT Internal Medicine; ATTEND Internal Medicine
DX: N17.8 Other acute kidney failure (principal); N18.4 Chronic kidney disease, stage 4 (severe); I87.331 Chronic venous hypertension (idiopathic) with ulcer and inflammation of right lower extremity; L97.919 Non-pressure chronic ulcer of unspecified part of right lower leg with unspecified severity; L97.929 Non-pressure chronic ulcer of unspecified part of left lower leg with unspecified severity; L03.115 Cellulitis of right lower limb; E87.1 Hypo-osmolality and hyponatremia; I48.0 Paroxysmal atrial fibrillation; I13.0 Hypertensive heart and chronic kidney disease with heart failure and stage 1 through stage 4 chronic kidney disease, or unspecified chronic kidney disease; Z91.81 History of falling; I50.30 Unspecified diastolic (congestive) heart failure; E87.5 Hyperkalemia; E83.41 Hypermagnesemia; I25.10 Atherosclerotic heart disease of native coronary artery without angina pectoris; E78.5 Hyperlipidemia, unspecified; I25.2 Old myocardial infarction; M10.9 Gout, unspecified; M19.90 Unspecified osteoarthritis, unspecified site; M51.86 Other intervertebral disc disorders, lumbar region; G25.81 Restless legs syndrome; F40.240 Claustrophobia; R00.1 Bradycardia, unspecified; I44.0 Atrioventricular block, first degree; G47.33 Obstructive sleep apnea (adult) (pediatric); I08.1 Rheumatic disorders of both mitral and tricuspid valves; I27.20 Pulmonary hypertension, unspecified; E87.2 Acidosis; E66.01 Morbid (severe) obesity due to excess calories; Z68.38 Body mass index [BMI] 38.0-38.9, adult; Z87.2 Personal history of diseases of the skin and subcutaneous tissue; Z79.899 Other long term (current) drug therapy; Z79.891 Long term (current) use of opiate analgesic; Z79.01 Long term (current) use of anticoagulants; Z88.8 Allergy status to other drugs, medicaments and biological substances; Z87.440 Personal history of urinary (tract) infections; Z86.19 Personal history of other infectious and parasitic diseases; Z95.5 Presence of coronary angioplasty implant and graft; Z90.89 Acquired absence of other organs; Z98.890 Other specified postprocedural states; Z87.828 Personal history of other (healed) physical injury and trauma; Z91.11 Patient's noncompliance with dietary regimen; Z91.19 Patient's noncompliance with other medical treatment and regimen; Z80.3 Family history of malignant neoplasm of breast; Z82.49 Family history of ischemic heart disease and other diseases of the circulatory system
CPT/HCPCS: 96361 ×3; 96365; 96366; 96375; 99285; 36415; 93005; 97162; 97166; 83880; 80053; 80048 ×2; 82550; 83605; 83735 ×2; 84443; 84484; 85025; 85610; 85730; 81003; 71045; 93970; 72125; 70450; G0378 ×2; J2270; J0690 ×2

== ENCOUNTER 2019-09-10 12:50 | Inpatient (IN) | payer OTHER, MEDICARE ==
[2019-09-10] MEDS ORDERED: KETOROLAC 30 MG/ML 1 ML VIAL IM STA (13:10)
[2019-09-10] MEDS ORDERED: DIAZEPAM 5 MG/ML 2 ML INJ IM ONE (13:10)
--- NOTE | 2019-09-10 13:54 | ED ---
General Adult HPI - General Chief complaint: Weakness Stated complaint: Weakness Time Seen by Provider: 09/10/19 12:55 Source: patient, family, EMS, RN notes reviewed, old records reviewed Mode of arrival: EMS Limitations: no limitations - History of Present Illness Initial comments: This is a 74-year-old male with a past medical history significant for kidney disease and chronic ulcerations of the leg and foot on the right. Patient initially stated to me before his is in the room that he was here because he had some neck stiffness he had no other complaint at that time however shortly after this his showed up and said he is severely weak and unable to stand on his own and help transfer. Patient is normally able to get up and go to the bathroom no longer can do that because he is so weak and in the past she states that this is because his kidney failure gets worse and he needs to come in. says he hasn't had any nausea vomiting diarrhea there has been no difficulty breathing there's no complaints of pain in his been no recent fever chills. - Related Data Home Medications Medication Instructions Recorded Confirmed FLUoxetine HCL [PROzac] 20 mg PO DAILY@1000 07/03/13 09/10/19 LORazepam [Ativan] 1 mg PO TID@0000,1000,169904/27/17 09/10/19 Ranolazine [Ranexa] 1,000 mg PO BID@1000,219904/27/17 09/10/19 oxyCODONE HCL [Roxicodone] 5 mg PO BID@1000,169904/27/17 09/10/19 Isosorbide Mononitrate ER [Imdur] 30 mg PO DAILY@1000 06/26/18 09/10/19 Labetalol HCl [Trandate] 300 mg PO BID@1000,219911/16/18 09/10/19 Gabapentin [Neurontin] 100 mg PO TID@0000,1000,169905/07/19 09/10/19 Iron Polysaccharide Complex 150 mg PO MOWEFR@219905/07/19 09/10/19 [Myferon 150] Nitroglycerin Sl Tabs [Nitrostat] 0.4 mg SUBLINGUAL Q5M PRN 05/07/19 09/10/19 Rivaroxaban [Xarelto] 15 mg PO DAILY@1700 05/07/19 09/10/19 oxyCODONE HCL [Roxicodone] 10 mg PO DAILY@0000 05/07/19 09/10/19 rOPINIRole HCL [Requip] 1 mg PO TID@0000,1000,1700 05/07/19 09/10/19 Folic Acid 1 mg PO HS@2200 08/12/19 09/10/19 Polyethylene Glycol 3350 [Miralax] 17 gm PO DAILY 08/12/19 09/10/19 Sodium Bicarbonate Tab 650 mg PO BID@1000,2200 08/20/19 09/10/19 Previous Rx's Medication Instructions Recorded Terazosin [Hytrin] 8 mg PO HS@0000 #120 cap 08/22/19 Cephalexin [Keflex] 500 mg PO Q6HR 7 Days #28 cap 09/02/19 Torsemide [Demadex] 60 mg PO DAILY@1000 tab 09/02/19 Allergies Allergy/AdvReac Type Severity Reaction Status Date / Time pravastatin Allergy Rash/Hives Verified 09/10/19 14:13 amlodipine AdvReac CONSTIPATIO Verified 09/10/19 14:13 N atenolol AdvReac MALE ED Verified 09/10/19 14:13 hydrochlorothiazide AdvReac RENAL Verified 09/10/19 14:13 IMPAIRMENT Review of Systems ROS Statement: Those systems with pertinent positive or pertinent negative responses have been documented in the HPI. ROS Other: All systems not noted in ROS Statement are negative. Past Medical History Past Medical History: Atrial Fibrillation, Coronary Artery Disease (CAD), Chest Pain / Angina, Heart Failure, Hyperlipidemia, Hypertension, Myocardial Infarction (TN), Osteoarthritis (OA), Renal Disease Additional Past Medical History / Comment(s): ? 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 pt stated has slept in recliner chair for past 10 years, uti ecoli 2013. gout in past, djd, lumbar disc disease. restless leg , leg cellulitis/swelling, falls/ Last Myocardial Infarction Date:: 2009 History of Any Multi-Drug Resistant Organisms: None Reported Date of last positivie culture/infection: 04/02/2018 MDRO Source:: leg wound Past Surgical History: Heart Catheterization With Stent, Tonsillectomy Additional Past Surgical History / Comment(s): [id number] stents, rt hand sx to repair severed lig/tendons(age 20) has limited use of index finger Past Anesthesia/Blood Transfusion Reactions: No Reported Reaction Additional Past Anesthesia/Blood Transfusion Reaction / Comment(s): clausterphobia Date of Last Stent Placement:: 2009 Past Psychological History: No Psychological Hx Reported Past Alcohol Use History: None Reported Past Drug Use History: None Reported - Past Family History Mother Family Medical History: Cancer Additional Family Medical History / Comment(s): breast cancer, heart problems was on warfarin(pt stated she bled out) Father Family Medical History: Coronary Artery Disease (CAD), Myocardial Infarction (TN) Additional Family Medical History / Comment(s): Father had his 1st TN in his 50s and then from his 2nd TN at the age of 74yrs. General Exam - General Exam Comments Initial Comments: GENERAL: Patient is well-developed and well-nourished. Patient is nontoxic and well- hydrated and is in no acute distress. ENT: Neck is soft and supple. No significant lymphadenopathy is noted. Oropharynx is clear. Moist mucous membranes. Neck has full range of motion without eliciting any pain. EYES: The sclera were anicteric and conjunctiva were pink and moist. Extraocular movements were intact and pupils were equal round and reactive to light. Eyelids were unremarkable. PULMONARY: Unlabored respirations. Good breath sounds bilaterally. No audible rales rhonchi or wheezing was noted. CARDIOVASCULAR: Patient is bradycardic at about 50 beats a minute ABDOMEN: Soft and nontender with normal bowel sounds. SKIN: Skin is clear with no lesions or rashes and otherwise unremarkable. NEUROLOGIC: Patient is alert and oriented x3. Cranial nerves II through XII are grossly intact. Motor and sensory are also intact. Normal speech, volume and content. Symmetrical smile. MUSCULOSKELETAL: Normal extremities with adequate strength and full range of motion. Both legs are wrapped patient states the right has chronic ulcerations that are no worse than normal LYMPH node No significant lymphadenopathy is noted PSYCHIATRIC: Normal psychiatric evaluation. Limitations: no limitations Course Vital Signs 09/10/19 09/10/19 09/10/19 12:55 13:00 13:10 Temperature 97.1 F L Pulse Rate 49 L 48 L 50 L Respiratory 18 19 19 Rate Blood Pressure 154/62 168/66 O2 Sat by Pulse 98 99 99 Oximetry 09/10/19 09/10/19 09/10/19 13:20 13:30 13:40 Temperature Pulse Rate 48 L 47 L 33 L Respiratory 17 15 18 Rate Blood Pressure O2 Sat by Pulse 98 98 98 Oximetry 09/10/19 09/10/19 09/10/19 13:50 14:00 14:10 Temperature Pulse Rate 46 L 35 L 45 L Respiratory 32 H 24 19 Rate Blood Pressure 177/153 O2 Sat by Pulse 98 98 99 Oximetry 09/10/19 09/10/19 09/10/19 14:30 15:00 15:30 Temperature Pulse Rate 39 L 48 L 43 L Respiratory Rate Blood Pressure 142/48 144/48 O2 Sat by Pulse 97 97 97 Oximetry 09/10/19 09/10/19 16:00 16:30 Temperature Pulse Rate 39 L 39 L Respiratory Rate Blood Pressure O2 Sat by Pulse 95 Oximetry Medical Decision Making - Medical Decision Making Patient has third-degree heart block at a rate of 35 bpm QRS is 122 QT interval is 526 QTC is 401. I spoke with Dr. Jauregui about this EKG he did. EKG and agreed it was third-degree heart block Patient's CT of the brain shows no acute abnormality. Chest x-ray shows no acute abnormality. I spoke with Dr. Rodriguez he agreed to admit the patient admitted the patient wrote admitting orders I consulted Dr. Olsen I consult cardiology and I consulted nephrology Patient did receive bicarb and calcium chloride D50 insulin and Later in the emergency department for the hyperkalemia - Lab Data Result diagrams: 09/10/19 13:53 09/10/19 13:53 Lab Results 09/10/19 09/10/19 09/10/19 Range/Units 13:53 13:53 13:53 WBC 8.4 (3.8-10.6) k/uL RBC 3.27 L (4.30-5.90) m/uL Hgb 11.0 L (13.0-17.5) gm/dL Hct 32.6 L (39.0-53.0) % MCV 99.6 (80.0-100.0) fL MCH 33.8 (25.0-35.0) pg MCHC 33.9 (31.0-37.0) g/dL RDW 13.7 (11.5-15.5) % Plt Count 426 (150-450) k/uL Neutrophils % 82 % Lymphocytes % 5 % Monocytes % 7 % Eosinophils % 4 % Basophils % 0 % Neutrophils # 6.9 (1.3-7.7) k/uL Lymphocytes # 0.5 L (1.0-4.8) k/uL Monocytes # 0.6 (0-1.0) k/uL Eosinophils # 0.3 (0-0.7) k/uL Basophils # 0.0 (0-0.2) k/uL PT 12.1 H (9.0-12.0) sec INR 1.2 H (<1.2) APTT 39.4 H (22.0-30.0) sec Sodium 121 L (137-145) mmol/L Potassium 7.3 H* (3.5-5.1) mmol/L Chloride 91 L (98-107) mmol/L Carbon Dioxide 14 L (22-30) mmol/L Anion Gap 16 mmol/L BUN 112 H* (9-20) mg/dL Creatinine 4.19 H (0.66-1.25) mg/dL Est GFR (CKD-EPI)AfAm 15 (>60 ml/min/1.73 sqM) Est GFR (CKD-EPI)NonAf 13 (>60 ml/min/1.73 sqM) Glucose 106 H (74-99) mg/dL Plasma Lactic Acid Harman (0.7-2.0) mmol/L Calcium 8.9 (8.4-10.2) mg/dL Total Bilirubin 0.8 (0.2-1.3) mg/dL AST 30 (17-59) U/L ALT 14 (4-49) U/L Alkaline Phosphatase 84 (38-126) U/L Troponin I (0.000-0.034) ng/mL Total Protein 7.8 (6.3-8.2) g/dL Albumin 4.1 (3.5-5.0) g/dL TSH (0.465-4.680) mIU/L 09/10/19 09/10/19 09/10/19 Range/Units 13:53 13:53 13:53 WBC (3.8-10.6) k/uL RBC (4.30-5.90) m/uL Hgb (13.0-17.5) gm/dL Hct (39.0-53.0) % MCV (80.0-100.0) fL MCH (25.0-35.0) pg MCHC (31.0-37.0) g/dL RDW (11.5-15.5) % Plt Count (150-450) k/uL Neutrophils % % Lymphocytes % % Monocytes % % Eosinophils % % Basophils % % Neutrophils # (1.3-7.7) k/uL Lymphocytes # (1.0-4.8) k/uL Monocytes # (0-1.0) k/uL Eosinophils # (0-0.7) k/uL Basophils # (0-0.2) k/uL PT (9.0-12.0) sec INR (<1.2) APTT (22.0-30.0) sec Sodium (137-145) mmol/L Potassium (3.5-5.1) mmol/L Chloride (98-107) mmol/L Carbon Dioxide (22-30) mmol/L Anion Gap mmol/L BUN (9-20) mg/dL Creatinine (0.66-1.25) mg/dL Est GFR (CKD-EPI)AfAm (>60 ml/min/1.73 sqM) Est GFR (CKD-EPI)NonAf (>60 ml/min/1.73 sqM) Glucose (74-99) mg/dL Plasma Lactic Acid Harman 1.0 (0.7-2.0) mmol/L Calcium (8.4-10.2) mg/dL Total Bilirubin (0.2-1.3) mg/dL AST (17-59) U/L ALT (4-49) U/L Alkaline Phosphatase (38-126) U/L Troponin I <0.012 (0.000-0.034) ng/mL Total Protein (6.3-8.2) g/dL Albumin (3.5-5.0) g/dL TSH 1.580 (0.465-4.680) mIU/L Critical Care Time Critical Care Time: Yes Total Critical Care Time: 35 Disposition Clinical Impression: Third degree heart block, Hyperkalemia, Renal failure Disposition: ADMITTED IP TO THIS [facility] Referrals: Jerod Braun MD [Primary Care Provider] - 1-2 days Time of Disposition: 16:40
[2019-09-10 14:09] LABS: Basophils % (A) 0 %; Eosinophils # (A) 0.3 k/uL (0-0.7); Eosinophils % (A) 4 %; HCT 32.6 % (39.0-53.0); Lymphocytes # (A) 0.5 k/uL (1.0-4.8); Lymphocytes % (A) 5 %; MCH 33.8 pg (25.0-35.0); MCHC 33.9 g/dL (31.0-37.0); MCV 99.6 fL (80.0-100.0); Mean Platelet Volume 7.1; Monocytes # (A) 0.6 k/uL (0-1.0); Monocytes % (A) 7 %; Neutrophils # (A) 6.9 k/uL (1.3-7.7); Neutrophils % (A) 82 %; Platelet Count 426 k/uL (150-450); RBC 3.27 m/uL (4.30-5.90); RDW 13.7 % (11.5-15.5); WBC 8.4 k/uL (3.8-10.6)
[2019-09-10 14:16] LABS: INR 1.2 (<1.2); Partial Thromboplastin Time 39.4 sec (22.0-30.0); Prothrombin Time 12.1 sec (9.0-12.0)
[2019-09-10 14:30] LABS: Albumin 4.1 g/dL (3.5-5.0); Calcium 8.9 mg/dL (8.4-10.2); Total Bilirubin 0.8 mg/dL (0.2-1.3); Total Protein 7.8 g/dL (6.3-8.2)
--- NOTE | 2019-09-10 14:34 | XR ---
EXAMINATION TYPE: XR chest 2V DATE OF EXAM: 09/10/2019 CLINICAL HISTORY: Weakness. History of stents. TECHNIQUE: Frontal and lateral views of the chest are obtained. COMPARISON: Chest radiograph 09/01/2019 FINDINGS: Low lung volumes. Overlapping neck soft tissue of the bilateral lung apices. Overlapping a bdominal soft tissues over the lung bases. The cardiac silhouette is unchanged in size. The mediastin um is obscured by the neck. There is redemonstrated pulmonary vascular congestion. Right basilar atel ectasis. IMPRESSION: Unchanged cardiomegaly and pulmonary vascular congestion versus 09/01/2019.
[2019-09-10 14:40] LABS: Potassium 7.3 mmol/L (3.5-5.1)
[2019-09-10] MEDS ORDERED: CALCIUM CHLORIDE 100 MG/ML 10 ML SYRINGE IVP STA (15:00)
[2019-09-10] MEDS ORDERED: DEXTROSE 50% SYRINGE 50 ML IVP STA ×2 (15:00→19:00)
[2019-09-10] MEDS ORDERED: INSULIN REGULAR 100 UNIT/ML VIAL IV ONE ×2 (15:00→19:00)
[2019-09-10] MEDS ORDERED: SODIUM BICARB 8.4% 50 ML SYR (1 MEQ/ML) IV STA (15:01)
[2019-09-10] MEDS ORDERED: SODIUM POLYSTYRENE SULFONATE 15 GM/60 ML BOTTLE PO STA (15:01)
[2019-09-10] MEDS ORDERED: GABAPENTIN 100 MG CAP PO STA (16:30)
[2019-09-10] MEDS ORDERED: NALOXONE 0.4 MG/ML 1 ML VIAL IV PRN (16:40)
[2019-09-10 17:51] LABS: Glucose,Whole Blood 96 mg/dL (75-99)
[2019-09-10 18:49] LABS: Calcium 9.6 mg/dL (8.4-10.2)
[2019-09-10 18:50] LABS: Potassium 6.7 mmol/L (3.5-5.1)
[2019-09-10] MEDS ORDERED: SODIUM CHLORIDE 0.45% 1,000 ML with SODIUM BICARB (1 MEQ/ML) 150 ML IV ONE ×2 (19:01)
[2019-09-10] MEDS ORDERED: NITROGLYCERIN SL TABS 0.4 MG TAB SUBLINGUAL PRN (19:06)
--- NOTE | 2019-09-10 21:00 | HP ---
HISTORY AND PHYSICAL This patient is a 74-year-old white male with a past medical history of kidney disease, chronic ulcerations of his leg and foot on the right side. He had some neck stiffness, came to the hospital, was severely weak, unable to stand. He was found to have severe hyperkalemia, worsening renal failure and severe third-degree block of his heart. He has not had any nausea, vomiting or difficulty with GI complaints. HOME MEDICINES: 1. Prozac 20 daily. 2. Ativan 1 mg t.i.d. 3. Ranexa 1000 b.i.d. 4. Oxycodone 5 mg b.i.d. 5. Imdur 30 daily. 6. Trandate 300 b.i.d. 7. Nitrostat p.r.n. 8. Xarelto 15 daily. 9. Oxycodone 10 daily. 10.Requip 1 mg t.i.d. 11.Folic acid 1 mg daily. 12.Sodium bicarb 650 b.i.d. ALLERGIES: PRAVASTATIN, AMLODIPINE, ATENOLOL, HYDROCHLOROTHIAZIDE. REVIEW OF SYSTEMS: Fourteen-point review of systems negative except for mentioned in HPI. PAST MEDICAL HISTORY: Atrial fibrillation, coronary artery disease, chest pain, angina, heart failure, dyslipidemia, hypertension, myocardial infarction, osteoarthritis, renal disease, herniated disc, gout, lumbar disc disease, restless legs syndrome, heart catheterization with stent, tonsillectomy, 3 cardiac stents. FAMILY HISTORY: Mother with cancer of the breast. Father with heart disease, myocardial infarction. PHYSICAL EXAMINATION: Well developed, well nourished white male in no acute distress. NECK: Supple. No mass. Pupils equal, round, reactive. No scleral icterus. LUNGS: Good breath sounds bilaterally. No rhonchi or wheeze. CARDIOVASCULAR: S1, S2. ABDOMEN: Soft, nontender. Heart is bradycardiac. Skin is warm and dry. Some mild lesions on the legs and feet on the right side. NEURO: Cranial nerves are intact. MUSCULOSKELETAL: Strength is fair. LYMPH: No lymphadenopathy. PSYCH: Normal affect. VITAL SIGNS: Temperature 97.1, pulse rate 49-50, respiratory rate 16-18, blood pressure 154 to 168 over 62 to 66, oxygenation 98% to 99% on room air. EKG: third-degree heart block. Heart rate is 35. He is going to have a pacemaker probably in the morning, so I will stop his Eliquis and put him on subcutaneous heparin. Order Cardiology, Nephrology and receive bicarb, calcium chloride, D50 insulin and to reduce his hyperkalemia possibly Kayexalate will be needed. Please see further orders. SANDY / IJN: [id number] /
[2019-09-10] MEDS: SODIUM BICARBONATE TAB 650 MG TAB PO SCH (21:43)
[2019-09-10] MEDS: RANOLAZINE 500 MG TAB.ER.12H PO SCH (21:44)
[2019-09-10] MEDS: LORazepam 1 MG TAB PO SCH (23:26)
[2019-09-10] MEDS: HEPARIN SODIUM,PORCINE 5,000 UNIT/ML 1 ML VIAL SQ SCH (23:26)
[2019-09-10] MEDS: GABAPENTIN 100 MG CAP PO SCH (23:26)
[2019-09-10] MEDS: DOXAZOSIN 4 MG TAB PO SCH (23:26)
[2019-09-11 00:12] LABS: Glucose,Whole Blood 109 mg/dL (75-99)
[2019-09-11] MEDS ORDERED: INSULIN REGULAR 100 UNIT/ML VIAL IV ONE ×2 (01:29→07:00)
[2019-09-11] MEDS ORDERED: DEXTROSE 50% SYRINGE 50 ML IVP STA ×2 (01:29→06:27)
[2019-09-11 05:38] LABS: Appearance,Urine Cloudy (Clear); Bacteria,Urine Rare /hpf; Bilirubin,Urine Negative (Negative); Blood,Urine Small (Negative); Color,Urine Yellow; Glucose,Urine (UA) Negative (Negative); Ketones,Urine Negative (Negative); Leukocyte Esterase,Urine Large (Negative); Mucus,Urine Rare /hpf; Nitrite,Urine Negative (Negative); Protein,Urine Negative (Negative); RBC,Urine 2 /hpf (0-5); Specific Gravity,Urine 1.011 (1.001-1.035); Urobilinogen,Urine <2.0 mg/dL (<2.0); WBC,Urine 19 /hpf (0-5)
[2019-09-11 05:52] LABS: Basophils # (A) 0.1 k/uL (0-0.2); Basophils % (A) 1 %; Eosinophils # (A) 0.5 k/uL (0-0.7); Eosinophils % (A) 5 %; HCT 31.8 % (39.0-53.0); HGB 10.7 gm/dL (13.0-17.5); Lymphocytes # (A) 0.6 k/uL (1.0-4.8); Lymphocytes % (A) 7 %; MCH 32.8 pg (25.0-35.0); MCHC 33.6 g/dL (31.0-37.0); MCV 97.8 fL (80.0-100.0); Mean Platelet Volume 7.2; Monocytes # (A) 0.7 k/uL (0-1.0); Monocytes % (A) 8 %; Neutrophils # (A) 6.8 k/uL (1.3-7.7); Neutrophils % (A) 77 %; Platelet Count 405 k/uL (150-450); RBC 3.26 m/uL (4.30-5.90); RDW 13.7 % (11.5-15.5); WBC 8.8 k/uL (3.8-10.6)
[2019-09-11 06:06] LABS: Magnesium 3.3 mg/dL (1.6-2.3); Potassium 5.5 mmol/L (3.5-5.1)
[2019-09-11 06:11] LABS: Glucose,Whole Blood 91 mg/dL (75-99)
--- NOTE | 2019-09-11 07:55 | XR ---
EXAMINATION TYPE: XR chest 1V DATE OF EXAM: 09/11/2019 CLINICAL HISTORY: Difficulty breathing progress study. TECHNIQUE: Single AP portable upright view of the chest is obtained. COMPARISON: Chest x-ray from one day earlier and older studies. FINDINGS: Persistent low lung volumes along with cardiomegaly and chronic parenchymal changes. Under lying scoliotic curvature redemonstrated. Some faint increased peripheral opacities remain present, f or reference left lung base. No new pleural effusion or pneumothorax seen. IMPRESSION: Cardiomegaly and chronic parenchymal changes with faint areas of edema and/or infiltrate bilaterally. No significant change from most recent x-ray.
[2019-09-11] MEDS: SODIUM BICARBONATE TAB 650 MG TAB PO SCH ×2 (09:23→21:28)
[2019-09-11] MEDS: GABAPENTIN 100 MG CAP PO SCH ×3 (09:23→23:01)
[2019-09-11] MEDS: ISOSORBIDE MONONITRATE ER 30 MG TAB.ER.24H PO SCH (09:23)
[2019-09-11] MEDS: HEPARIN SODIUM,PORCINE 5,000 UNIT/ML 1 ML VIAL SQ SCH ×3 (09:24→23:02)
[2019-09-11] MEDS: RANOLAZINE 500 MG TAB.ER.12H PO SCH ×2 (09:24→21:27)
[2019-09-11] MEDS: FLUoxetine HCL 20 MG CAP PO SCH (09:24)
[2019-09-11] MEDS: LORazepam 1 MG TAB PO SCH ×3 (09:24→23:02)
[2019-09-11] MEDS: TORSEMIDE 20 MG TAB PO SCH (09:25)
[2019-09-11] MEDS: SODIUM CHLORIDE 0.45% 1,000 ML with SODIUM BICARB (1 MEQ/ML) 150 ML IV SCH ×4 (11:32→23:02)
[2019-09-11 11:43] LABS: Glucose,Whole Blood 136 mg/dL (75-99)
--- NOTE | 2019-09-11 11:54 | P.CNPUL ---
History of Present Illness Consult date: 09/11/19 Requesting physician: Charlie Thacker Reason for consult: other (Third-degree AV block, hyperkalemia, acute on chronic kidney injury.) Chief complaint: Weakness. And neck stiffness History of present illness: This is a 74-year-old white male with history of multiple medical problems including chronic kidney disease stage III, chronic cellulitis and venous stasis changes of lower extremities, patient presented to the hospital yesterday with mostly multiple complaints including stiff mass in the neck, and weakness. Workup in the ER showed that the patient had hyperkalemia, third degree AV b lock, and hyperkalemia as well as hyponatremia and severe worsening of his renal profile with BUN of 112, creatinine of 4.19, potassium of 7.3, and sodium of 121. Patient was given a cocktail therapy for his hyperkalemia, as per protocol. Patient received dextrose, insulin, calcium gluconate, Kayexalate, and his repeat potassium this morning is 5.5. Nephrology was consulted, and cardiology was consulted. He was placed on sodium bicarb drip, and he was admitted to the intensive care unit. Labetalol was placed on hold. Patient is not a great historian, he feels generally weak, denies any other specific complaints. Review of Systems Constitutional: Weakness fatigue malaise HEENT: Negative Pulmonary: Denies any shortness of breath cough or wheezing Cardiac: Denies any chest pain, denies any palpitations, denies any syncope denies any orthopnea or PND. GI: Denies any nausea vomiting abdominal pain. Genitourinary: Denies any dysuria frequency or urgency. Hematologic: Denies any clotting bleeding or bruising Psychiatric: Denies any symptoms of anxiety or depression. Endocrine: Denies any heat or cold intolerance, denies any polyuria polydipsia or polyphagia. Skin: Patient has chronic venous stasis changes and erythema of lower extremities/chronic with recurrent cellulitis Neurologic: Denies any headache blurred vision or dizziness Past Medical History Past Medical History: Atrial Fibrillation, Coronary Artery Disease (CAD), Chest Pain / Angina, Heart Failure, Hyperlipidemia, Hypertension, Myocardial Infarcti on (NH), Osteoarthritis (OA), Renal Disease Additional Past Medical History / Comment(s): ? 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 pt stated has slept in recliner chair for past 10 years, uti ecoli 2013. gout in past, djd, lumbar disc diseas e. restless leg , leg cellulitis/swelling, falls/ Last Myocardial Infarction Date:: 2009 History of Any Multi-Drug Resistant Organisms: None Reported Date of last positivie culture/infection: 04/02/2018 MDRO Source:: leg wound Past Surgical History: Heart Catheterization With Stent, Tonsillectomy Additional Past Surgical History / Comment(s): [id number] stents, rt hand sx to repair severed lig/tendons(age 20) has limited use of index finger Past Anesthesia/Blood Transfusion Reactions: No Reported Reaction Additional Past Anesthesia/Blood Transfusion Reaction / Comment(s): clausterphobia Date of Last Stent Placement:: 2009 Smoking Status: Never smoker - Past Family History Mother Family Medical History: Cancer Additional Family Medical History / Comment(s): breast cancer, heart problems was on warfarin(pt stated she bled out) Father Family Medical History: Coronary Artery Disease (CAD), Myocardial Infarction (NH) Additional Family Medical History / Comment(s): Father had his 1st NH in his 50s and then from his 2nd NH at the age of 74yrs. Medications and Allergies Home Medications Medication Instructions Recorded Confirmed Type FLUoxetine HCL [PROzac] 20 mg PO DAILY@1000 07/03/13 09/10/19 History LORazepam [Ativan] 1 mg PO TID@0000,1000,169904/27/17 09/10/19 History Ranolazine [Ranexa] 1,000 mg PO BID@1000,219904/27/17 09/10/19 History oxyCODONE HCL [Roxicodone] 5 mg PO BID@1000,169904/27/17 09/10/19 History Isosorbide Mononitrate ER [Imdur] 30 mg PO DAILY@1000 06/26/18 09/10/19 History Labetalol HCl [Trandate] 300 mg PO BID@1000,219911/16/18 09/10/19 History Gabapentin [Neurontin] 100 mg PO TID@0000,1000,1700 05/07/19 09/10/19 History Iron Polysaccharide Complex 150 mg PO MOWEFR@219905/07/19 09/10/19 History [Myferon 150] Nitroglycerin Sl Tabs [Nitrostat] 0.4 mg SUBLINGUAL Q5M PRN 05/07/19 09/10/19 History Rivaroxaban [Xarelto] 15 mg PO DAILY@1700 05/07/19 09/10/19 History oxyCODONE HCL [Roxicodone] 10 mg PO DAILY@0000 05/07/19 09/10/19 History rOPINIRole HCL [Requip] 1 mg PO TID@0000,1000,1700 05/07/19 09/10/19 History Folic Acid 1 mg PO HS@2200 08/12/19 09/10/19 History Polyethylene Glycol 3350 [Miralax] 17 gm PO DAILY 08/12/19 09/10/19 History Sodium Bicarbonate Tab 650 mg PO BID@1000,2200 08/20/19 09/10/19 History Terazosin [Hytrin] 8 mg PO HS@0000 #120 cap 08/22/19 09/10/19 Rx Cephalexin [Keflex] 500 mg PO Q6HR 7 Days #28 cap 09/02/19 09/10/19 Rx Torsemide [Demadex] 60 mg PO DAILY@1000 tab 09/02/19 09/10/19 Rx Allergies Allergy/AdvReac Type Severity Reaction Status Date / Time pravastatin Allergy Rash/Hives Verified 09/10/19 14:13 amlodipine AdvReac CONSTIPATIO Verified 09/10/19 14:13 N atenolol AdvReac MALE ED Verified 09/10/19 14:13 hydrochlorothiazide AdvReac RENAL Verified 09/10/19 14:13 IMPAIRMENT Physical Exam Vitals: Vital Signs Temp Pulse Resp BP Pulse Ox 09/11/19 09:00 43 L 13 114/57 96 09/11/19 08:00 97.5 F L 46 L 12 124/41 95 09/11/19 07:00 46 L 20 148/49 94 L 09/11/19 06:00 48 L 16 133/49 95 09/11/19 05:00 46 L 16 125/49 81 L 09/11/19 04:00 98 F 47 L 16 113/45 94 L 09/11/19 03:00 47 L 17 117/49 91 L 09/11/19 02:00 48 L 18 138/53 94 L 07/23/20 01:00 49 L 14 145/48 85 L 09/11/19 00:00 98 F 48 L 22 142/57 93 L 09/10/19 23:00 46 L 20 119/37 97 09/10/19 22:00 37 L 16 149/48 91 L 09/10/19 21:00 51 L 18 157/60 94 L 09/10/19 20:00 97.8 F 50 L 17 168/63 94 L 09/10/19 19:00 41 L 22 94 L 09/10/19 18:30 44 L 18 153/55 95 09/10/19 18:10 12 95 09/10/19 17:53 45 L 18 98 09/10/19 17:00 97.5 F L 38 L 18 110/55 93 L 09/10/19 16:45 37 L 18 110/55 97 09/10/19 16:30 39 L 95 09/10/19 16:00 39 L 09/10/19 15:30 43 L 144/48 97 09/10/19 15:00 48 L 97 09/10/19 14:30 39 L 142/48 97 09/10/19 14:10 45 L 19 177/153 99 09/10/19 14:00 35 L 24 98 09/10/19 13:50 46 L 32 H 98 09/10/19 13:40 33 L 18 98 09/10/19 13:30 47 L 15 98 09/10/19 13:20 48 L 17 98 09/10/19 13:10 50 L 19 168/66 99 09/10/19 13:00 48 L 19 99 09/10/19 12:55 97.1 F L 49 L 18 154/62 98 Intake and Output 09/10/19 09/11/19 09/11/19 22:59 06:59 14:59 Intake Total 210 560 240 Output Total 820 625 255 Balance -610 -65 -15 Intake: IV 210 560 240 Sodium Chloride 0.45% 1, 210 560 240 000 ml @ 100 mls/hr IV . [id number] ONE with Sodium Bicarb (1 Meq/ml) 150 ml Rx#:[id number] Output: Urine 820 625 255 Other: Voiding Method Indwelling Catheter Indwelling Catheter Weight 123.5 kg 119.8 kg GENERAL: Revealed 74-year-old white male in no distress. ENT: Neck is soft and supple. No significant lymphadenopathy is noted. Oropharynx is clear. Moist mucous membranes. Neck has full range of motion without elicit ing any pain. EYES: The sclera were anicteric and conjunctiva were pink and moist. Extraocular mo vements were intact and pupils were equal round and reactive to light. Eyelids were unremarkable. PULMONARY: Symmetrical chest expansion, clear bilaterally no crackles or rhonchi or wheezes. CARDIOVASCULAR: Patient is bradycardic at about 50 beats a minute ABDOMEN: Obese, Soft and nontender with normal bowel sounds. SKIN: Skin is clear with no lesions or rashes and otherwise unremarkable. Venous stasis changes and superficial ulcerations noted on lower extremities. NEUROLOGIC: Patient is alert and oriented x3. Cranial nerves II through XII are grossly intact. Motor and sensory are also intact. Normal speech, volume and content. Symmetrical smile. MUSCULOSKELETAL: Normal extremities with adequate strength and full range of motion. Both legs are wrapped patient states the right has chronic ulcerations LYMPH node No significant lymphadenopathy is noted PSYCHIATRIC: Blunt affect, normal mood, normal mental status examination Results - Laboratory Findings CBC and BMP: 09/11/19 05:30 09/11/19 05:30 PT/INR, D-dimer PT 12.1 sec (9.0-12.0) H 09/10/19 13:53 INR 1.2 (<1.2) H 09/10/19 13:53 Abnormal lab findings: Abnormal Labs 09/10/19 09/10/19 09/10/19 13:53 13:53 13:53 RBC 3.27 L Hgb 11.0 L Hct 32.6 L Lymphocytes # 0.5 L PT 12.1 H INR 1.2 H APTT 39.4 H Sodium 121 L Potassium 7.3 H* Chloride 91 L Carbon Dioxide 14 L BUN 112 H* Creatinine 4.19 H Glucose 106 H POC Glucose (mg/dL) Magnesium Urine Blood Ur Leukocyte Esterase Urine WBC Urine WBC Clumps Urine Bacteria Urine Mucus 09/10/19 09/10/19 09/11/19 13:53 18:24 00:10 RBC Hgb Hct Lymphocytes # PT INR APTT Sodium 121 L Potassium 6.7 H* Chloride 93 L Carbon Dioxide 12 L BUN 112 H* Creatinine 4.22 H Glucose POC Glucose (mg/dL) 109 H Magnesium 3.5 H Urine Blood Ur Leukocyte Esterase Urine WBC Urine WBC Clumps Urine Bacteria Urine Mucus 09/11/19 09/11/19 09/11/19 00:33 05:00 05:30 RBC 3.26 L Hgb 10.7 L Hct 31.8 L Lymphocytes # 0.6 L PT INR APTT Sodium 122 L Potassium 6.0 H Chloride 92 L Carbon Dioxide 16 L BUN Creatinine Glucose POC Glucose (mg/dL) Magnesium Urine Blood Small H Ur Leukocyte Esterase Large H Urine WBC 19 H Urine WBC Clumps Few H Urine Bacteria Rare H Urine Mucus Rare H 09/11/19 05:30 RBC Hgb Hct Lymphocytes # PT INR APTT Sodium 125 L Potassium 5.5 H Chloride 93 L Carbon Dioxide 19 L BUN 106 H* Creatinine 3.78 H Glucose POC Glucose (mg/dL) Magnesium 3.3 H Urine Blood Ur Leukocyte Esterase Urine WBC Urine WBC Clumps Urine Bacteria Urine Mucus - Diagnostic Findings Chest x-ray: image reviewed (Cardiomegaly and mild pulmonary vascular congestion.) Assessment and Plan Assessment: Impression: Third-degree heart block, heart rate on presentation was 35. Most likely secondary to hyperkalemia and secondary to acute on chronic kidney injury. And secondary to medications/beta blockers. Hyponatremia with hyperkalemia, rule out adrenal insufficiency, serum cortisol level is pending. Chronic atrial fibrillation, patient is maintained on anticoagulation therapy and beta blockers. Coronary artery disease and previous cardiac stents 3 Benign essential hypertension. Degenerative joint disease. Chronic cellulitis of lower extremities and chronic venous stasis changes. Recommendation: Continue to monitor the patient in the ICU. Address hyperkalemia and treat accordingly as per protocol. Serum cortisol level was ordered. Continue to hold beta blockers on this patient. May or may not require pacemaker implantation. Nephrology to evaluate for his acute on chronic kidney disease. Continue to hold diuretics for now. Continue anticoagulations therapy/Xarelto. We'll continue to follow. Continue GI and DVT prophylaxis Time with Patient: Greater than 30
[2019-09-11 12:28] LABS: Calcium 9.6 mg/dL (8.4-10.2); Potassium 5.4 mmol/L (3.5-5.1)
--- NOTE | 2019-09-11 12:41 | CONS ---
CONSULTATION REASON FOR CONSULT: Renal failure. HISTORY OF PRESENT ILLNESS: Patient is a 74-year-old male with chronic kidney disease secondary to nephrosclerosis. Baseline creatinine about 2-2.5 mg/dL. Patient has had several admissions for CHF exacerbation. He has diastolic heart failure. His serum creatinine has peaked all the way up to 3.5 mg/dL on previous admissions. He was recently discharged from the hospital on 09/02/2019 and is readmitted now with increased weakness. He states he had not been eating or drinking much. He states his swelling is significantly decreased. The patient was noted to have a sodium of 121, CO2 was 12 and serum creatinine at 4.2 mg/dL. Patient also had urine retention. King catheter was placed and 500 mL of urine was obtained on initial King catheter placement. The patient was started on bicarb drip. His sodium has improved to 125, potassium was elevated at 7.3. It is now down to 5.5 mEq/L. The patient denies any fever or chills. No nausea or vomiting. PAST MEDICAL HISTORY: CKD stage 4, diastolic heart failure, atrial fibrillation, coronary artery disease, osteoarthritis, hyperlipidemia. PAST SURGICAL HISTORY: Cardiac catheterization, coronary stent placement, tonsillectomy, right hand surgery and mostly associated with trauma. SOCIAL HISTORY: Negative for smoking, drug abuse or alcohol abuse. MEDICATIONS: Prior to admission included Prozac, Ativan, Ranexa, Imdur, Trandate, Neurontin, Nitrostat, Xarelto, Requip, oxycodone, folic acid, MiraLAX, sodium bicarb, Hytrin, Keflex, Demadex. ALLERGIES: Include PRAVASTATIN, AMLODIPINE, ATENOLOL, HYDROCHLOROTHIAZIDE. ATENOLOL causes erectile dysfunction, HYDROCHLOROTHIAZIDE caused worsening of renal function and AMLODIPINE caused constipation, so most of these are just intolerances. REVIEW OF SYSTEMS: As per HPI. Other systems negative. PHYSICAL EXAMINATION: Patient is comfortable,awake he is alert and oriented x3, not in any acute distress. Blood pressure is 114/57, heart rate 43 per minute, he is afebrile. Examination of the heart S1, S2. Examination of the lungs, bilateral breath sounds are heard. Abdomen is soft, obese. Examination of the lower extremities shows chronic skin changes. No edema is noted at this time. [employer] exam grossly intact. LABS: Show sodium 125, potassium 5.5, chloride 93, CO2 is 19, BUN 106, serum creatinine down to 3.78. ASSESSMENT: 1. Acute kidney injury, prerenal associated with over-diuresis, currently improved. Patient is maintained on IV bicarb. Renal function is improving. He also had an element of urine retention and 500 mL of urine was obtained on initial King catheter placement. Continue with the King catheter for now. 2. Patient's chest x-ray continues to shows cardiomegaly with chronic parenchymal changes. He has been maintained on oral Demadex, which I will hold for 1-2 days. 3. Diastolic congestive heart failure, currently not in heart failure. 4. Hyperkalemia associated with acute kidney injury, currently improving and acidosis currently improving. 5. Anion gap metabolic acidosis associated with renal failure, now improved. No history of diarrhea. 6. Hypovolemic hyponatremia, currently improving. PLAN: Continue with the bicarb drip. Repeat electrolytes at noon. Hold Demadex for 1-2 days. We can likely discontinue the bicarb drip and maintain patient off of fluids and diuretics for one day, tomorrow. Repeat labs in a.m. Thank you for this consultation. Will continue to follow the patient with you during his hospitalization. MMODL / IJN: [id number] /
--- NOTE | 2019-09-11 12:42 | P.HPCAR ---
History of Present Illness This is Dr. Rivera dictating a consult on this patient The patient was interviewed and examined IMPRESSION / ASSESSMENT: Severe bradycardia with third-degree heart block, narrow QRS escape rhythm during hyperkalemia with a potassium of 7.3 Patient on labetalol 300 mg twice daily Improvement in heart rate and rhythm with treatment of hyperkalemia and stopping labetalol chronic kidney disease with creatinine greater than 3 PLAN: Management of hyperkalemia and renal dysfunction per primary team I would recommend VELTASSA Stop labetalol Start Procardia XL 30 mg daily Patient states he is ALLERGIC to amlodipine No indication for permanent pacing in hyperkalemia, in the hyperkalemic state of pacemaker will be unable to capture and pace the cardiac tissue HPI Patient was admitted because he is feeling very weak and could not stand ROS: No fever chills or rigors, no cough, phlegm or expectoration, no nausea, vomiting or diarrhea, no hematuria, dysuria, no musculoskeletal complaints, no strokes or seizures, no skin lesions. EXAMINATION: Heart rate in the 40s and 50s Blood pressure 120/45 mmHg Breath sounds are reduced bilaterally Abdomen is soft Heart sounds S1 and S2 are soft. Cardiac Chronic lower extremity edema with trophic changes REVIEW OF LABS, ECG & MEDICAL DATA hemoglobin 10.7, initial potassium 7.3 and 6.7 and 6.0 and today it's 5.4 Past history of atrial fibrillation coronary artery disease hypertension dyslipidemia chronic kidney disease hypertension Physical Exam Vitals: Vital Signs Temp Pulse Resp BP Pulse Ox 09/11/19 11:00 52 L 19 120/45 95 09/11/19 10:00 48 L 12 124/50 95 09/11/19 09:00 43 L 13 114/57 96 09/11/19 08:00 97.5 F L 46 L 12 124/41 95 09/11/19 07:00 46 L 20 148/49 94 L 09/11/19 06:00 48 L 16 133/49 95 09/11/19 05:00 46 L 16 125/49 81 L 09/11/19 04:00 98 F 47 L 16 113/45 94 L 09/11/19 03:00 47 L 17 117/49 91 L 09/11/19 02:00 48 L 18 138/53 94 L 09/11/19 01:00 49 L 14 145/48 85 L 09/11/19 00:00 98 F 48 L 22 142/57 93 L 09/10/19 23:00 46 L 20 119/37 97 09/10/19 22:00 37 L 16 149/48 91 L 09/10/19 21:00 51 L 18 157/60 94 L 09/10/19 20:00 97.8 F 50 L 17 168/63 94 L 09/10/19 19:00 41 L 22 94 L 09/10/19 18:30 44 L 18 153/55 95 09/10/19 18:10 12 95 09/10/19 17:53 45 L 18 98 09/10/19 17:00 97.5 F L 38 L 18 110/55 93 L 09/10/19 16:45 37 L 18 110/55 97 09/10/19 16:30 39 L 95 09/10/19 16:00 39 L 09/10/19 15:30 43 L 144/48 97 09/10/19 15:00 48 L 97 09/10/19 14:30 39 L 142/48 97 09/10/19 14:10 45 L 19 177/153 99 09/10/19 14:00 35 L 24 98 09/10/19 13:50 46 L 32 H 98 09/10/19 13:40 33 L 18 98 09/10/19 13:30 47 L 15 98 09/10/19 13:20 48 L 17 98 09/10/19 13:10 50 L 19 168/66 99 09/10/19 13:00 48 L 19 99 09/10/19 12:55 97.1 F L 49 L 18 154/62 98 Intake and Output 09/10/19 09/11/19 09/11/19 22:59 06:59 14:59 Intake Total 210 560 440 Output Total 820 625 805 Balance -610 -65 -365 Intake: IV 210 560 440 Sodium Chloride 0.45% 1, 210 560 440 000 ml @ 100 mls/hr IV . [id number] ONE with Sodium Bicarb (1 Meq/ml) 150 ml Rx#:[id number] Output: Urine 820 625 805 Other: Voiding Method Indwelling Catheter Indwelling Catheter Indwelling Catheter Weight 123.5 kg 119.8 kg Past Medical History Past Medical History: Atrial Fibrillation, Coronary Artery Disease (CAD), Chest Pain / Angina, Heart Failure, Hyperlipidemia, Hypertension, Myocardial Infarction (AK), Osteoarthritis (OA), Renal Disease Additional Past Medical History / Comment(s): ? 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 pt stated has slept in recliner c hair for past 10 years, uti ecoli 2013. gout in past, djd, lumbar disc disease. restless leg , leg cellulitis/swelling, falls/ Last Myocardial Infarction Date:: 2009 History of Any Multi-Drug Resistant Organisms: None Reported Date of last positivie culture/infection: 04/02/2018 MDRO Source:: leg wound Past Surgical History: Heart Catheterization With Stent, Tonsillectomy Additional Past Surgical History / Comment(s): [id number] stents, rt hand sx to repair severed lig/tendons(age 20) has limited use of index finger Past Anesthesia/Blood Transfusion Reactions: No Reported Reaction Additional Past Anesthesia/Blood Transfusion Reaction / Comment(s): clausterphobia Date of Last Stent Placement:: 2009 Smoking Status: Never smoker - Past Family History Mother Family Medical History: Cancer Additional Family Medical History / Comment(s): breast cancer, heart problems was on warfarin(pt stated she bled out) Father Family Medical History: Coronary Artery Disease (CAD), Myocardial Infarction (AK) Additional Family Medical History / Comment(s): Father had his 1st AK in his 50s and then from his 2nd AK at the age of 74yrs. Physical Examination Vital Signs Temp Pulse Resp BP Pulse Ox 09/11/19 11:00 52 L 19 120/45 95 09/11/19 10:00 48 L 12 124/50 95 09/11/19 09:00 43 L 13 114/57 96 09/11/19 08:00 97.5 F L 46 L 12 124/41 95 09/11/19 07:00 46 L 20 148/49 94 L 09/11/19 06:00 48 L 16 133/49 95 09/11/19 05:00 46 L 16 125/49 81 L 09/11/19 04:00 98 F 47 L 16 113/45 94 L 09/11/19 03:00 47 L 17 117/49 91 L 09/11/19 02:00 48 L 18 138/53 94 L 09/11/19 01:00 49 L 14 145/48 85 L 09/11/19 00:00 98 F 48 L 22 142/57 93 L 09/10/19 23:00 46 L 20 119/37 97 09/10/19 22:00 37 L 16 149/48 91 L 09/10/19 21:00 51 L 18 157/60 94 L 09/10/19 20:00 97.8 F 50 L 17 168/63 94 L 09/10/19 19:00 41 L 22 94 L 09/10/19 18:30 44 L 18 153/55 95 09/10/19 18:10 12 95 09/10/19 17:53 45 L 18 98 09/10/19 17:00 97.5 F L 38 L 18 110/55 93 L 09/10/19 16:45 37 L 18 110/55 97 09/10/19 16:30 39 L 95 09/10/19 16:00 39 L 09/10/19 15:30 43 L 144/48 97 09/10/19 15:00 48 L 97 09/10/19 14:30 39 L 142/48 97 09/10/19 14:10 45 L 19 177/153 99 09/10/19 14:00 35 L 24 98 09/10/19 13:50 46 L 32 H 98 09/10/19 13:40 33 L 18 98 09/10/19 13:30 47 L 15 98 09/10/19 13:20 48 L 17 98 09/10/19 13:10 50 L 19 168/66 99 09/10/19 13:00 48 L 19 99 09/10/19 12:55 97.1 F L 49 L 18 154/62 98 Intake and Output 09/10/19 09/11/19 09/11/19 22:59 06:59 14:59 Intake Total 210 560 440 Output Total 820 625 805 Balance -610 -65 -365 Intake: IV 210 560 440 Sodium Chloride 0.45% 1, 210 560 440 000 ml @ 100 mls/hr IV . [id number] ONE with Sodium Bicarb (1 Meq/ml) 150 ml Rx#:[id number] Output: Urine 820 625 805 Other: Voiding Method Indwelling Catheter Indwelling Catheter Indwelling Catheter Weight 123.5 kg 119.8 kg Results 09/11/19 05:30 09/11/19 11:42 Cardiac Enzymes 09/10/19 09/10/19 Range/Units 13:53 13:53 AST 30 (17-59) U/L Troponin I <0.012 (0.000-0.034) ng/mL Coagulation 09/10/19 Range/Units 13:53 PT 12.1 H (9.0-12.0) sec APTT 39.4 H (22.0-30.0) sec CBC 09/10/19 09/11/19 Range/Units 13:53 05:30 WBC 8.4 8.8 (3.8-10.6) k/uL RBC 3.27 L 3.26 L (4.30-5.90) m/uL Hgb 11.0 L 10.7 L (13.0-17.5) gm/dL Hct 32.6 L 31.8 L (39.0-53.0) % Plt Count 426 405 (150-450) k/uL Comprehensive Metabolic Panel 09/10/19 09/10/19 09/11/19 Range/Units 13:53 18:24 00:33 Sodium 121 L 121 L 122 L (137-145) mmol/L Potassium 7.3 H* 6.7 H* 6.0 H (3.5-5.1) mmol/L Chloride 91 L 93 L 92 L (98-107) mmol/L Carbon Dioxide 14 L 12 L 16 L (22-30) mmol/L BUN 112 H* 112 H* (9-20) mg/dL Creatinine 4.19 H 4.22 H (0.66-1.25) mg/dL Glucose 106 H 83 (74-99) mg/dL Calcium 8.9 9.6 (8.4-10.2) mg/dL AST 30 (17-59) U/L ALT 14 (4-49) U/L Alkaline Phosphatase 84 (38-126) U/L Total Protein 7.8 (6.3-8.2) g/dL Albumin 4.1 (3.5-5.0) g/dL 09/11/19 09/11/19 Range/Units 05:30 11:42 Sodium 125 L 126 L (137-145) mmol/L Potassium 5.5 H 5.4 H (3.5-5.1) mmol/L Chloride 93 L 94 L (98-107) mmol/L Carbon Dioxide 19 L 20 L (22-30) mmol/L BUN 106 H* 102 H* (9-20) mg/dL Creatinine 3.78 H 3.61 H (0.66-1.25) mg/dL Glucose 83 137 H (74-99) mg/dL Calcium 9.0 9.6 (8.4-10.2) mg/dL AST (17-59) U/L ALT (4-49) U/L Alkaline Phosphatase (38-126) U/L Total Protein (6.3-8.2) g/dL Albumin (3.5-5.0) g/dL Current Medications Generic Name Dose Route Start Last Admin Trade Name Freq PRN Reason Stop Dose Admin Doxazosin Mesylate 8 mg 09/11/19 00:00 09/10/19 23:26 Cardura PO 8 mg HS@0000 KARINE Administration Fluoxetine HCl 20 mg 09/11/19 10:00 09/11/19 09:24 Prozac PO 20 mg DAILY@1000 [facility] Administration Gabapentin 100 mg 09/11/19 00:00 09/11/19 09:23 Neurontin PO 100 mg TID@0000,1000,1700 [facility] Administration Heparin Sodium (Porcine) 5,000 unit 09/11/19 00:00 09/11/19 09:24 Heparin SQ 5,000 unit Q8HR KARINE Administration Sodium Bicarbonate 150 ml/ 1,150 mls @ 100 mls/hr 09/11/19 10:00 09/11/19 11:32 Sodium Chloride IV 100 mls/hr .[id number] KARINE Administration Isosorbide Mononitrate 30 mg 09/11/19 10:00 09/11/19 09:23 Imdur PO 30 mg DAILY@1000 [facility] Administration Lorazepam 1 mg 09/11/19 00:00 09/11/19 09:24 Ativan PO 1 mg TID@0000,1000,1700 [facility] Administration Naloxone HCl 0.2 mg 09/10/19 16:40 Narcan IV Q2M PRN Opioid Reversal Nifedipine 30 mg 09/11/19 21:00 Procardia Xl PO HS [facility] Nitroglycerin 0.4 mg 09/10/19 19:06 Nitrostat SUBLINGUAL Q5M PRN Chest Pain Oxycodone HCl 5 mg 09/11/19 10:00 09/11/19 09:23 Oxyir PO 5 mg BID@1000,1700 KARINE Administration Oxycodone HCl 10 mg 09/11/19 00:00 09/10/19 23:27 Oxyir PO 10 mg DAILY@0000 KARINE Administration Ranolazine 1,000 mg 09/10/19 22:00 09/11/19 09:24 Ranexa PO 1,000 mg BID@1000,2200 KARINE Administration Ropinirole HCl 1 mg 09/11/19 00:00 09/11/19 09:24 Requip PO 1 mg TID@0000,1000,1700 KARINE Administration Sodium Bicarbonate 650 mg 09/10/19 22:00 09/11/19 09:23 Sodium Bicarbonate Tab PO 650 mg BID@1000,2200 KARINE Administration Torsemide 60 mg 09/11/19 10:00 09/11/19 09:25 Demadex PO 60 mg DAILY@1000 KARINE Administration Intake and Output 09/10/19 09/11/19 09/11/19 22:59 06:59 14:59 Intake Total 210 560 440 Output Total 820 625 805 Balance -610 -65 -365 Intake: IV 210 560 440 Sodium Chloride 0.45% 1, 210 560 440 000 ml @ 100 mls/hr IV . [id number] ONE with Sodium Bicarb (1 Meq/ml) 150 ml Rx#:[id number] Output: Urine 820 625 805 Other: Voiding Method Indwelling Catheter Indwelling Catheter Indwelling Catheter Weight 123.5 kg 119.8 kg 09/11/19 05:30 09/11/19 11:42
[2019-09-11 16:59] LABS: Glucose,Whole Blood 146 mg/dL (75-99)
[2019-09-11 20:58] LABS: Glucose,Whole Blood 155 mg/dL (75-99)
[2019-09-11] MEDS: NIFEdipine XL 30 MG TAB.ER.24 PO SCH (21:28)
[2019-09-11] MEDS: DOXAZOSIN 4 MG TAB PO SCH (23:01)
--- NOTE | 2019-09-11 23:27 | PN ---
PROGRESS NOTE The patient was admitted with third-degree heart block, narrow QRS complex. He was stopped on his Trandate when he first got admitted. His heart rate is in the low 50s, now with a lot of PVCs, possible bigeminy. His potassium was 7.3 on admission. He was treated for hyperkalemia. Labetalol was stopped. Cardiology saw him and recommended Veltassa and he stopped labetalol which I stopped a couple days ago and started Procardia XL 30 mg a day. He is allergic to . He did not want to do a permanent pacemaker due to hyperkalemia. The patient is feeling better. He is eating today. CARDIOVASCULAR: S1, S2. Nguyễn. LUNGS: Are clear. INTEGUMENT: Shows vascular changes in the lower legs with some erythema. Temperature 97.5, heart rate high 40s to low 50s, respiratory rate 16 to 18, blood pressure 120s to 140s over 40s to 50s. PLAN: Monitor pacemaker. Continue to improve the potassium which is down to 5.4 today. Sodium 126, BUN is 102, creatinine 3.6. Await for renal recommendations and cardiac recommendations. Prognosis guarded, but improved. ICU TIME: 20 minutes. MMODL / IJN: [id number] /
[2019-09-12] MEDS: HEPARIN SODIUM,PORCINE 5,000 UNIT/ML 1 ML VIAL SQ SCH ×4 (00:45→23:24)
[2019-09-12 05:10] LABS: Basophils # (A) 0.1 k/uL (0-0.2); Basophils % (A) 1 %; Eosinophils # (A) 0.5 k/uL (0-0.7); Eosinophils % (A) 6 %; HCT 30.5 % (39.0-53.0); HGB 10.1 gm/dL (13.0-17.5); Lymphocytes # (A) 0.7 k/uL (1.0-4.8); Lymphocytes % (A) 8 %; MCH 31.6 pg (25.0-35.0); Monocytes # (A) 0.7 k/uL (0-1.0); Monocytes % (A) 8 %; Neutrophils # (A) 6.5 k/uL (1.3-7.7); Neutrophils % (A) 76 %; Platelet Count 392 k/uL (150-450); RBC 3.18 m/uL (4.30-5.90); WBC 8.6 k/uL (3.8-10.6)
[2019-09-12 05:23] LABS: Albumin 3.1 g/dL (3.5-5.0); Calcium 8.4 mg/dL (8.4-10.2); Potassium 4.4 mmol/L (3.5-5.1); Total Bilirubin 0.7 mg/dL (0.2-1.3); Total Protein 6.2 g/dL (6.3-8.2)
[2019-09-12 06:55] LABS: Glucose,Whole Blood 134 mg/dL (75-99)
[2019-09-12] MEDS: LORazepam 1 MG TAB PO SCH ×3 (09:52→23:24)
[2019-09-12] MEDS: SODIUM BICARBONATE TAB 650 MG TAB PO SCH ×2 (09:52→22:26)
[2019-09-12] MEDS: GABAPENTIN 100 MG CAP PO SCH ×3 (09:53→23:24)
[2019-09-12] MEDS: FLUoxetine HCL 20 MG CAP PO SCH (09:53)
[2019-09-12] MEDS: ISOSORBIDE MONONITRATE ER 30 MG TAB.ER.24H PO SCH (09:53)
[2019-09-12] MEDS: RANOLAZINE 500 MG TAB.ER.12H PO SCH ×2 (09:54→22:25)
[2019-09-12] MEDS: TORSEMIDE 20 MG TAB PO SCH (09:54)
[2019-09-12 11:52] LABS: Glucose,Whole Blood 116 mg/dL (75-99)
--- NOTE | 2019-09-12 12:31 | P.PN ---
Subjective Progress Note Date: 09/12/19 Principal diagnosis: Third-degree AV block with hyperkalemia and acute on chronic kidney injury. This is a 74-year-old white male with history of multiple medical problems including chronic kidney disease stage III, chronic cellulitis and venous stasis changes of lower extremities, patient presented to the hospital yesterday with mostly multiple complaints including stiff mass in the neck, and weakness. Workup in the ER showed that the patient had hyperkalemia, third degree AV block, and hyperkalemia as well as hyponatremia and severe worsening of his renal profile with BUN of 112, creatinine of 4.19, potassium of 7.3, and sodium of 121. Patient was given a cocktail therapy for his hyperkalemia, as per protocol. Patient received dextrose, insulin, calcium gluconate, Kayexalate, and his repeat potassium this morning is 5.5. Nephrology was consulted, and cardiology was consulted. He was placed on sodium bicarb drip, and he was admitted to the intensive care unit. Labetalol was placed on hold. Patient is not a great historian, he feels generally weak, denies any other specific complaints. Patient was reevaluated today on 09/12/19, patient is doing much better today, breathing a lot easier, he has atrial fibrillation with first degree AV block. Hemodynamically stable. Renal functioning is improving. Potassium is normal. CBC is relatively normal. And the patient denies any active pulmonary symptoms. He is on room air. Hence I plan to transfer the patient today out of the ICU to a monitored bed on [facility] ([facility] Patient is on oral bicarb, and his bicarb drip has been discontinued. Objective - Vital Signs Vital signs: Vital Signs Temp 97.8 F 09/12/19 08:00 Pulse 65 09/12/19 08:00 Resp 14 09/12/19 08:00 BP 129/108 09/12/19 08:00 Pulse Ox 100 09/12/19 08:00 Intake & Output 09/11/19 09/12/19 09/12/19 18:59 06:59 18:59 Intake Total 1140 1440 400 Output Total 1780 1135 335 Balance -640 305 65 Weight 119.2 kg Intake: IV 1140 1200 400 Sodium Chloride 0.45% 1, 1140 1200 400 000 ml @ 100 mls/hr IV . [id number] ONE with Sodium Bicarb (1 Meq/ml) 150 ml Rx#:[id number] Oral 240 Output: Urine 1780 1135 335 Other: Voiding Method Indwelling Catheter Indwelling Catheter Indwelling Catheter - Exam Revealed 74-year-old white male in no distress. ENT:Neck is soft and supple. No significant lymphadenopathy is noted. Oropharynx is clear. Moist mucous membranes. Neck has full range of motion without eliciting any pain. EYES: The sclera were anicteric and conjunctiva were pink and moist. Extraocular movements were intact and pupils were equal round and reactive to light. Eyelids were unremarkable. PULMONARY: Symmetrical chest expansion, clear bilaterally no crackles or rhonchi or wheezes. CARDIOVASCULAR: Patient is bradycardic at about 50 beats a minute ABDOMEN: Obese, Soft and nontender with normal bowel sounds. SKIN: Skin is clear with no lesions or rashes and otherwise unremarkable. Venous stasis changes and superficial ulcerations noted on lower extremities. NEUROLOGIC: Patient is alert and oriented x3. Cranial nerves II through XII are grossly intact. Motor and sensory are also intact. Normal speech, volume and content. Symmetrical smile. MUSCULOSKELETAL: Normal extremities with adequate strength and full range of motion. Both legs are wrapped patient states the right has chronic ulcerations LYMPH node No significant lymphadenopathy is noted PSYCHIATRIC: Blunt affect, normal mood, normal mental status examination - Labs CBC & Chem 7: 09/12/19 04:45 09/12/19 04:45 Labs: Abnormal Lab Results - Last 24 Hours (Table) 09/11/19 09/11/19 09/11/19 Range/Units 11:42 16:58 20:55 RBC (4.30-5.90) m/uL Hgb (13.0-17.5) gm/dL Hct (39.0-53.0) % Lymphocytes # (1.0-4.8) k/uL Sodium 126 L (137-145) mmol/L Potassium 5.4 H (3.5-5.1) mmol/L Chloride 94 L (98-107) mmol/L Carbon Dioxide 20 L (22-30) mmol/L BUN 102 H* (9-20) mg/dL Creatinine 3.61 H (0.66-1.25) mg/dL Glucose 137 H (74-99) mg/dL POC Glucose (mg/dL) 146 H 155 H (75-99) mg/dL Total Protein (6.3-8.2) g/dL Albumin (3.5-5.0) g/dL 09/12/19 09/12/19 09/12/19 Range/Units 04:45 04:45 06:45 RBC 3.18 L (4.30-5.90) m/uL Hgb 10.1 L (13.0-17.5) gm/dL Hct 30.5 L (39.0-53.0) % Lymphocytes # 0.7 L (1.0-4.8) k/uL Sodium 130 L (137-145) mmol/L Potassium (3.5-5.1) mmol/L Chloride 95 L (98-107) mmol/L Carbon Dioxide (22-30) mmol/L BUN 97 H (9-20) mg/dL Creatinine 3.24 H (0.66-1.25) mg/dL Glucose 115 H (74-99) mg/dL POC Glucose (mg/dL) 134 H (75-99) mg/dL Total Protein 6.2 L (6.3-8.2) g/dL Albumin 3.1 L (3.5-5.0) g/dL 09/12/19 Range/Units 11:50 RBC (4.30-5.90) m/uL Hgb (13.0-17.5) gm/dL Hct (39.0-53.0) % Lymphocytes # (1.0-4.8) k/uL Sodium (137-145) mmol/L Potassium (3.5-5.1) mmol/L Chloride (98-107) mmol/L Carbon Dioxide (22-30) mmol/L BUN (9-20) mg/dL Creatinine (0.66-1.25) mg/dL Glucose (74-99) mg/dL POC Glucose (mg/dL) 116 H (75-99) mg/dL Total Protein (6.3-8.2) g/dL Albumin (3.5-5.0) g/dL Microbiology - Last 24 Hours (Table) 09/11/19 05:00 Urine Culture - Preliminary Urine,Voided Assessment and Plan Assessment: Impression: Third-degree heart block, heart rate on presentation was 35. Most likely secondary to hyperkalemia and secondary to acute on chronic kidney injury. And secondary to medications/beta blockers. His third-degree AV block responded well to treatment of his electrolytes imbalance/hyperkalemia. Hyponatremia with hyperkalemia, cortisol level was normal. Hence that rules out adrenal insufficiency. Chronic atrial fibrillation, rate controlled at present. Coronary artery disease and previous cardiac stents 3 Benign essential hypertension. Degenerative joint disease. Chronic cellulitis of lower extremities and chronic venous stasis changes. Recommendation: Transfer patient out of the ICU to a monitor bed on [facility]. Continue treatment for his electrolytes imbalance and monitor renal status.. Continue to hold beta blockers on this patient. Nephrology to continue to follow up on his renal status Continue anticoagulations therapy/Xarelto. Continue GI and DVT prophylaxis Will follow as needed. Time with Patient: Less than 30
[2019-09-12 17:08] LABS: Glucose,Whole Blood 198 mg/dL (75-99)
--- NOTE | 2019-09-12 21:23 | P.PN ---
Subjective Patient is doing better. He is a lot more alert and oriented He had lots of questions about her medical condition and stated he would like to go home I informed him that he was not ready to go home at this point His heart is have picked up into the 50s he is brought. Underwent baseline His potassium is better and is about 5.0 Beta blockers been discontinued On Procardia XL 30 mg daily his heart rates in the are a lot better Blood pressure is well controlled He denies any chest discomfort does not appear to be short of breath He has chronic lymphedema in the lower extremities with severe atrophic changes likely severe peripheral vascular disease On examination his blood pressure 151/68 mmHg pulse rate in the 50s afebrile Breath sounds are reduced bilaterally Heart sounds are soft and regular Impression Third-degree heart block configuration to severe hyperkalemia potassium 7.6 Patient is also on labetalol at that time Labetalol has been discontinued and he has been switched to Procardia Stage IV chronic kidney disease Diastolic heart failure by history History of atrial fibrillation currently in sinus rhythm Known coronary artery disease status post coronary stenting Plan Continue current medications I will reassess his antihypertensive therapy and may increase the dose of Procardia tomorrow Objective - Vital Signs Vital signs: Vital Signs Temp 97.5 F L 09/12/19 20:00 Pulse 58 L 09/12/19 20:00 Resp 16 09/12/19 20:00 BP 145/63 09/12/19 20:00 Pulse Ox 98 09/12/19 15:50 Intake & Output 09/12/19 09/12/19 09/13/19 06:59 18:59 06:59 Intake Total 1440 1000 Output Total 1135 1535 Balance 305 -535 Weight 119.2 kg Intake: IV 1200 1000 Sodium Chloride 0.45% 1, 1200 1000 000 ml @ 100 mls/hr IV . [id number] ONE with Sodium Bicarb (1 Meq/ml) 150 ml Rx#:[id number] Oral 240 Output: Urine 1135 1535 Other: Voiding Method Indwelling Catheter Indwelling Catheter - Labs CBC & Chem 7: 09/12/19 04:45 09/12/19 04:45 Labs: Abnormal Lab Results - Last 24 Hours (Table) 09/12/19 09/12/19 09/12/19 Range/Units 04:45 04:45 06:45 RBC 3.18 L (4.30-5.90) m/uL Hgb 10.1 L (13.0-17.5) gm/dL Hct 30.5 L (39.0-53.0) % Lymphocytes # 0.7 L (1.0-4.8) k/uL Sodium 130 L (137-145) mmol/L Chloride 95 L (98-107) mmol/L BUN 97 H (9-20) mg/dL Creatinine 3.24 H (0.66-1.25) mg/dL Glucose 115 H (74-99) mg/dL POC Glucose (mg/dL) 134 H (75-99) mg/dL Total Protein 6.2 L (6.3-8.2) g/dL Albumin 3.1 L (3.5-5.0) g/dL 09/12/19 09/12/19 Range/Units 11:50 17:07 RBC (4.30-5.90) m/uL Hgb (13.0-17.5) gm/dL Hct (39.0-53.0) % Lymphocytes # (1.0-4.8) k/uL Sodium (137-145) mmol/L Chloride (98-107) mmol/L BUN (9-20) mg/dL Creatinine (0.66-1.25) mg/dL Glucose (74-99) mg/dL POC Glucose (mg/dL) 116 H 198 H (75-99) mg/dL Total Protein (6.3-8.2) g/dL Albumin (3.5-5.0) g/dL Microbiology - Last 24 Hours (Table) 09/11/19 05:00 Urine Culture - Final Urine,Voided
[2019-09-12] MEDS: NIFEdipine XL 30 MG TAB.ER.24 PO SCH (22:26)
[2019-09-12] MEDS: DOXAZOSIN 4 MG TAB PO SCH (23:23)
--- NOTE | 2019-09-13 02:19 | PN ---
PROGRESS NOTE 74-year-old white male will be discharged home soon. He has been placed on Procardia, taken off Trandate. His heart rate is in the 60s and regular. High potassium secondary to renal failure has been fixed. No arrhythmias. Possible discharge home, out of ICU to home possibly tomorrow if cleared by Cardiology. Lungs are clear. Cardiovascular S1-S2. Psych, he is up in the chair eating, doing well. ICU 20 minutes. MMODL / IJN: [id number] /
[2019-09-13 04:25] LABS: Basophils # (A) 0.1 k/uL (0-0.2); Basophils % (A) 1 %; Eosinophils # (A) 0.5 k/uL (0-0.7); Eosinophils % (A) 5 %; HGB 11.5 gm/dL (13.0-17.5); Lymphocytes % (A) 10 %; MCH 33.9 pg (25.0-35.0); MCHC 34.7 g/dL (31.0-37.0); MCV 97.7 fL (80.0-100.0); Mean Platelet Volume 7.1; Monocytes # (A) 0.9 k/uL (0-1.0); Monocytes % (A) 9 %; Neutrophils # (A) 7.4 k/uL (1.3-7.7); Neutrophils % (A) 73 %; Platelet Count 393 k/uL (150-450); RBC 3.38 m/uL (4.30-5.90); RDW 13.9 % (11.5-15.5); WBC 10.1 k/uL (3.8-10.6)
[2019-09-13 04:43] LABS: Albumin 3.9 g/dL (3.5-5.0); Calcium 9.1 mg/dL (8.4-10.2); Potassium 4.3 mmol/L (3.5-5.1); Total Bilirubin 0.6 mg/dL (0.2-1.3); Total Protein 7.5 g/dL (6.3-8.2)
[2019-09-13 08:13] VITALS: RESP 18
[2019-09-13] MEDS: HEPARIN SODIUM,PORCINE 5,000 UNIT/ML 1 ML VIAL SQ SCH (09:38)
[2019-09-13] MEDS: GABAPENTIN 100 MG CAP PO SCH (09:48)
[2019-09-13] MEDS: RANOLAZINE 500 MG TAB.ER.12H PO SCH (09:48)
[2019-09-13] MEDS: LORazepam 1 MG TAB PO SCH (09:48)
[2019-09-13] MEDS: SODIUM BICARBONATE TAB 650 MG TAB PO SCH (09:48)
[2019-09-13] MEDS: ISOSORBIDE MONONITRATE ER 30 MG TAB.ER.24H PO SCH (09:48)
[2019-09-13] MEDS: FLUoxetine HCL 20 MG CAP PO SCH (09:49)
[2019-09-13] MEDS: SODIUM CHLORIDE 0.45% 1,000 ML with SODIUM BICARB (1 MEQ/ML) 150 ML IV SCH ×2 (10:58)
--- NOTE | 2019-09-13 11:08 | P.PN ---
Subjective Progress Note Date: 09/13/19 Principal diagnosis: Third-degree AV block with hyperkalemia and acute on chronic kidney injury. This is a 74-year-old white male with history of multiple medical problems including chronic kidney disease stage III, chronic cellulitis and venous stasis changes of lower extremities, patient presented to the hospital yesterday with mostly multiple complaints including stiff mass in the neck, and weakness. Workup in the ER showed that the patient had hyperkalemia, third degree AV block, and hyperkalemia as well as hyponatremia and severe worsening of his renal profile with BUN of 112, creatinine of 4.19, potassium of 7.3, and sodium of 121. Patient was given a cocktail therapy for his hyperkalemia, as per protocol. Patient received dextrose, insulin, calcium gluconate, Kayexalate, and his repeat potassium this morning is 5.5. Nephrology was consulted, and cardiology was consulted. He was placed on sodium bicarb drip, and he was admitted to the intensive care unit. Labetalol was placed on hold. Patient is not a great historian, he feels generally weak, denies any other specific complaints. Patient was reevaluated today on 09/12/19, patient is doing much better today, breathing a lot easier, he has atrial fibrillation with first degree AV block. Hemodynamically stable. Renal functioning is improving. Potassium is normal. CBC is relatively normal. And the patient denies any active pulmonary symptoms. He is on room air. Hence I plan to transfer the patient today out of the ICU to a monitored bed on [facility]. Patient is on oral bicarb, and his bicarb drip has been discontinued. Patient was reevaluated today on 09/13/19, patient is doing well, asymptomatic. He is in atrial fibrillation, no evidence of third-degree AV block. His labs are improving including his sodium potassium and renal profile. However his creatinine remains elevated at 3.06. Patient denies any cough wheezing or shortness of breath. Objective - Vital Signs Vital signs: Vital Signs Temp 97.8 F 09/13/19 08:00 Pulse 59 L 09/13/19 08:00 Resp 18 09/13/19 08:00 BP 140/62 09/13/19 08:00 Pulse Ox 99 09/13/19 08:00 Intake & Output 09/12/19 09/13/19 09/13/19 18:59 06:59 18:59 Intake Total 1000 1000 Output Total 1535 850 Balance -535 150 Intake: IV 1000 Sodium Chloride 0.45% 1, 1000 000 ml @ 100 mls/hr IV . [id number] ONE with Sodium Bicarb (1 Meq/ml) 150 ml Rx#:[id number] Oral 1000 Output: Urine 1535 850 Other: Voiding Method Indwelling Catheter Indwelling Catheter Indwelling Catheter # Bowel Movements 0 - Exam Physical exam revealed a 74-year-old white male in no distress. Head: Atraumatic normocephalic. HEENT: sclera were anicteric and conjunctiva were pink and moist. Extraocular movements were intact and pupils were equal round and reactive to light. Eyelids were unremarkable. No neck masses no JVD. PULMONARY: Symmetrical chest expansion, clear bilaterally no crackles or rhonchi or wheezes. CARDIOVASCULAR: Patient is bradycardic at about 50 beats a minute ABDOMEN: Obese, Soft and nontender with normal bowel sounds. SKIN: Skin is clear with no lesions or rashes and otherwise unremarkable. Venous stasis changes and superficial ulcerations noted on lower extremities. NEUROLOGIC: Patient is alert and oriented x3. Cranial nerves II through XII are grossly intact. Motor and sensory are also intact. Normal speech, volume and content. Symmetrical smile. MUSCULOSKELETAL: Normal extremities with adequate strength and full range of motion. Both legs are wrapped patient states the right has chronic ulcerations LYMPH node No significant lymphadenopathy is noted PSYCHIATRIC: Blunt affect, normal mood, normal mental status examination - Labs CBC & Chem 7: 09/13/19 04:12 09/13/19 04:12 Labs: Abnormal Lab Results - Last 24 Hours (Table) 09/12/19 09/12/19 09/13/19 Range/Units 11:50 17:07 04:12 RBC 3.38 L (4.30-5.90) m/uL Hgb 11.5 L (13.0-17.5) gm/dL Hct 33.0 L (39.0-53.0) % Sodium (137-145) mmol/L Chloride (98-107) mmol/L BUN (9-20) mg/dL Creatinine (0.66-1.25) mg/dL Glucose (74-99) mg/dL POC Glucose (mg/dL) 116 H 198 H (75-99) mg/dL 09/13/19 Range/Units 04:12 RBC (4.30-5.90) m/uL Hgb (13.0-17.5) gm/dL Hct (39.0-53.0) % Sodium 130 L (137-145) mmol/L Chloride 93 L (98-107) mmol/L BUN 87 H (9-20) mg/dL Creatinine 3.06 H (0.66-1.25) mg/dL Glucose 152 H (74-99) mg/dL POC Glucose (mg/dL) (75-99) mg/dL Microbiology - Last 24 Hours (Table) 09/11/19 05:00 Urine Culture - Final Urine,Voided Assessment and Plan Assessment: Impression: Third-degree heart block, heart rate on presentation was 35. Most likely secondary to hyperkalemia and secondary to acute on chronic kidney injury. And secondary to medications/beta blockers. His third-degree AV block responded well to treatment of his electrolytes imbalance/hyperkalemia. Hyponatremia with hyperkalemia, significantly improved, and there is no evidence of adrenal insufficiency. Chronic atrial fibrillation, rate controlled at present. Coronary artery disease and previous cardiac stents 3 Benign essential hypertension. Degenerative joint disease. Chronic cellulitis of lower extremities and chronic venous stasis changes. Recommendation: Transfer patient out of the ICU to a monitor bed on [facility]. Consider discharge planning if cleared by cardiology. Must have close follow-up regarding his renal profile. Will see the patient on when necessary basis. Time with Patient: Less than 30
[2019-09-13] MEDS ORDERED: TORSEMIDE 20 MG TAB PO SCH (11:30)
--- NOTE | 2019-09-13 12:20 | PN ---
PROGRESS NOTE Patient is seen for followup for acute kidney injury, mainly prerenal, currently significantly improved. The patient was on IV fluids for a short period of time. I will resume his diuretics now. He is transferred out of the ICU. PHYSICAL EXAMINATION: On examination, blood pressure was 140/62, heart rate 59 per minute, he is afebrile. Examination of the heart S1, S2. Examination of the lungs, bilateral breath sounds are heard. Abdomen is soft, nontender, obese. Examination of lower extremities shows chronic skin changes, edema 2+ bilaterally, stable. LABS: Show sodium 130, potassium 4.3, chloride 93, BUN 87, creatinine 3.06. ASSESSMENT: 1. Acute kidney injury, prerenal, currently improved. We can resume the Demadex. 2. Hypovolemic hyponatremia, now improved. 3. Chronic kidney disease stage 4 with previous creatinine at about 2-2.5 mg/dL. PLAN: Resume Demadex. Possible discharge today. MMODL / IJN: [id number] /
--- NOTE | 2019-09-13 12:20 | PN ---
PROGRESS NOTE DATE OF SERVICE: 09/12/2019 Patient is seen for followup for acute kidney injury, mostly prerenal, currently improving post IV hydration. The patient is doing well. He has had good urine output. He is tolerating his oral intake. PHYSICAL EXAMINATION: Blood pressure was 151/68, heart rate 80 per minute, he is afebrile. Examination of the heart S1, S2. Examination of the lungs, bilateral breath sounds are heard. Abdomen is soft, obese. Examination of lower extremities shows chronic skin changes, edema 2+ bilaterally, mostly chronic. CASINO [employer]ER exam is grossly intact. LABS: Show sodium 130, potassium 4.4, chloride 95, BUN 97, creatinine 3.24, hemoglobin 10.1. ASSESSMENT: 1. Acute kidney injury, prerenal, currently improving with IV hydration. 2. Chronic kidney disease stage IV. Baseline creatinine 2-2.5, mainly secondary to nephrosclerosis and cardiorenal syndrome. 3. Hypovolemic hyponatremia, currently improved. 4. Hyperkalemia associated with acute kidney injury and acidosis, now improved. 5. Anion gap metabolic acidosis associated with renal failure, now improved. PLAN: Can resume Demadex in the next 1-2 days. The patient needs close outpatient monitoring of labs and volume status. MMODL / IJN: [id number] /
[2019-09-13 13:37] VITALS: BP 106/53; PULSE 61; TEMP 97.6
--- NOTE | 2019-09-15 11:17 | P.DS ---
Providers Date of admission: 09/10/19 16:40 Expected date of discharge: 09/13/19 Attending physician: Charlie Stokes Consults: 09/10/19 16:40 Consult Physician Routine Consulting Provider: Shawn Jauregui Consult Reason/Comments: third-degree heart block Do you want consulting provider notified?: Yes Consult Physician Routine Consulting Provider: Macie Rios Consult Reason/Comments: Renal failure Do you want consulting provider notified?: Yes Consult Physician Stat Consulting Provider: Lindsey Rodriguez Consult Reason/Comments: Critical care management Do you want consulting provider notified?: Already Contacted Primary care physician: Jerod Braun MD Hospital Course: Final diagnosis acute renal failure hyperkalemia severe third-degree block chronic ulcerations of right leg and foot atrial fibrillation Discharge disposition Patient is being discharged in a stable condition with guarded prognosis to home. Patient will follow-up with Dr. Stokes upon discharge. Patient also instructed to follow up with nephrology and cardiology in the outpatient setting. Total time taken is 35 minutes. History of present illness This is an 74-year-old male who was recently admitted with ARF, hyperkalemia, third degree heart block, along with chronic ulcerations of the right leg and foot and was being closely monitored. Patient was seen and evaluated by cardiology and nephrology. Currently no reports of chest pain, shortness of breath, or palpitations. Patient is afebrile. No reports of nausea or vomiting and patient is tolerating diet. Please refer to previous dictation of Dr. Gan as we were covering. On exam vital signs are stable. Temp is 97.9F, pulse is 80, respirations are 18, blood pressure is 125/77, oxygen saturation is 97% on room air. Cardio S1, S2 are muffled. Respiratory shows diminished breath sounds at the bases with no wheezing or rhonchi noted. Abdomen is soft and nontender. Nervous system shows no focal deficits. Please refer to medication reconciliation sheet for a list of medications. Patient Condition at Discharge: Stable Plan - Discharge Summary Discharge Rx Participant: Yes New Discharge Prescriptions: New NIFEdipine XL [Procardia XL] 30 mg PO HS 30 Days #30 tab.er.24 Continue FLUoxetine HCL [PROzac] 20 mg PO DAILY@1000 oxyCODONE HCL [Roxicodone] 5 mg PO BID@1000,1700 Ranolazine [Ranexa] 1,000 mg PO BID@1000,2200 LORazepam [Ativan] 1 mg PO TID@0000,1000,1700 Isosorbide Mononitrate ER [Imdur] 30 mg PO DAILY@1000 Gabapentin [Neurontin] 100 mg PO TID@0000,1000,1700 oxyCODONE HCL [Roxicodone] 10 mg PO DAILY@0000 Rivaroxaban [Xarelto] 15 mg PO DAILY@1700 rOPINIRole HCL [Requip] 1 mg PO TID@0000,1000,1700 Nitroglycerin Sl Tabs [Nitrostat] 0.4 mg SUBLINGUAL Q5M PRN PRN Reason: Chest Pain Iron Polysaccharide Complex [Myferon 150] 150 mg PO MOWEFR@2200 Folic Acid 1 mg PO HS@2200 Polyethylene Glycol 3350 [Miralax] 17 gm PO DAILY Sodium Bicarbonate Tab 650 mg PO BID@1000,2200 Terazosin [Hytrin] 8 mg PO HS@0000 #120 cap Torsemide [Demadex] 60 mg PO DAILY@1000 tab Discontinued Labetalol HCl [Trandate] 300 mg PO BID@1000,2200 Cephalexin [Keflex] 500 mg PO Q6HR 7 Days #28 cap Discharge Medication List FLUoxetine HCL [PROzac] 20 mg PO DAILY@1000 07/03/13 [History] LORazepam [Ativan] 1 mg PO TID@0000,1000,1700 04/27/17 [History] Ranolazine [Ranexa] 1,000 mg PO BID@1000,2200 04/27/17 [History] oxyCODONE HCL [Roxicodone] 5 mg PO BID@1000,1700 04/27/17 [History] Isosorbide Mononitrate ER [Imdur] 30 mg PO DAILY@1000 06/26/18 [History] Gabapentin [Neurontin] 100 mg PO TID@0000,1000,1700 05/07/19 [History] Iron Polysaccharide Complex [Myferon 150] 150 mg PO MOWEFR@219905/07/19 [History] Nitroglycerin Sl Tabs [Nitrostat] 0.4 mg SUBLINGUAL Q5M PRN 05/07/19 [History] Rivaroxaban [Xarelto] 15 mg PO DAILY@17005/07/19 [History] oxyCODONE HCL [Roxicodone] 10 mg PO DAILY@0000 05/07/19 [History] rOPINIRole HCL [Requip] 1 mg PO TID@0000,1000,1700 05/07/19 [History] Folic Acid 1 mg PO HS@2200 08/12/19 [History] Polyethylene Glycol 3350 [Miralax] 17 gm PO DAILY 08/12/19 [History] Sodium Bicarbonate Tab 650 mg PO BID@1000,2200 08/20/19 [History] Terazosin [Hytrin] 8 mg PO HS@0000 #120 cap 08/22/19 [Rx] Torsemide [Demadex] 60 mg PO DAILY@1000 tab 09/02/19 [Rx] NIFEdipine XL [Procardia XL] 30 mg PO HS 30 Days #30 tab.er.24 09/13/19 [Rx] Follow up Appointment(s)/Referral(s): Esequiel Rivera MD [STAFF PHYSICIAN] - 2 Weeks Jerod Braun MD [Primary Care Provider] - 1-2 days Macie Rios MD [STAFF PHYSICIAN] - [facility] Week [facility] [NON-STAFF] - (Contact day of discharge for services to be started again. ) Ambulatory/Diagnostic Orders: Basic Metabolic Panel [LAB.AMB] Time Frame: 2 Days, Location: None Selected Patient Instructions/Handouts: Heart Block (DC) Activity/Diet/Wound Care/Special Instructions: [facility] is set up through [place] to have respite and non skilled care. Call them day of discharge to have services continue/set up. They can be reached at [phone] activity Limited until follow-up Continue to avoid potassium in your diet Continue with current medications Follow up with primary care provider this week Follow-up with cardiology as discussed and scheduled Follow-up with nephrology closely in the outpatient setting Repeat labs in 2-3 days Discharge Disposition: HOME WITH HOME HEALTH SERVICES
== END 2019-09-13 16:19 | disposition home health service (06) | DRG 309 ==
LOC: EC 12:50 → 2SICU 16:40 → 3SCARD 09-13 09:12
PROVIDERS: ADMIT Family Medicine; ATTEND Family Medicine
DX: I44.2 Atrioventricular block, complete (principal); N18.4 Chronic kidney disease, stage 4 (severe); N17.9 Acute kidney failure, unspecified; I13.0 Hypertensive heart and chronic kidney disease with heart failure and stage 1 through stage 4 chronic kidney disease, or unspecified chronic kidney disease; E87.2 Acidosis; L97.919 Non-pressure chronic ulcer of unspecified part of right lower leg with unspecified severity; E87.1 Hypo-osmolality and hyponatremia; L03.116 Cellulitis of left lower limb; L03.115 Cellulitis of right lower limb; I50.32 Chronic diastolic (congestive) heart failure; Z68.41 Body mass index [BMI] 40.0-44.9, adult; Z11.59 Encounter for screening for other viral diseases; I48.20 Chronic atrial fibrillation, unspecified; I73.9 Peripheral vascular disease, unspecified; I25.10 Atherosclerotic heart disease of native coronary artery without angina pectoris; E78.5 Hyperlipidemia, unspecified; G25.81 Restless legs syndrome; M19.90 Unspecified osteoarthritis, unspecified site; M10.9 Gout, unspecified; M51.26 Other intervertebral disc displacement, lumbar region; E87.5 Hyperkalemia; I87.8 Other specified disorders of veins; E66.9 Obesity, unspecified; R33.9 Retention of urine, unspecified; I25.2 Old myocardial infarction; E86.1 Hypovolemia; I89.0 Lymphedema, not elsewhere classified; I44.0 Atrioventricular block, first degree; Z79.899 Other long term (current) drug therapy; Z79.01 Long term (current) use of anticoagulants; Z79.891 Long term (current) use of opiate analgesic; Z87.440 Personal history of urinary (tract) infections; Z91.81 History of falling; Z95.5 Presence of coronary angioplasty implant and graft; Z98.890 Other specified postprocedural states; Z87.828 Personal history of other (healed) physical injury and trauma; Z88.8 Allergy status to other drugs, medicaments and biological substances; Z80.3 Family history of malignant neoplasm of breast; Z82.49 Family history of ischemic heart disease and other diseases of the circulatory system
CPT/HCPCS: 36415; 71045; 71046; 80048; 80051; 80053; 81001; 82533; 83605; 83735; 84443; 84484; 85025; 85610; 85730; 87086; 93005; 96372; 96374; 96375; 99291

== ENCOUNTER 2019-09-19 11:45 | Inpatient (IN) | payer MEDICARE, OTHER ==
--- NOTE | 2019-09-19 12:33 | ED ---
General Adult HPI - General Chief complaint: Recheck/Abnormal Lab/Rx Stated complaint: Low heart rate Time Seen by Provider: 09/19/19 11:56 Source: patient, family, EMS, RN notes reviewed Mode of arrival: EMS Limitations: no limitations - History of Present Illness Initial comments: Patient is a pleasant 74-year-old male presenting to the emergency Department with complaints of fatigue and general weakness. Symptoms have progressed over the past 2-3 days. Patient did have similar symptoms several times previously associated with bradycardia secondary to high potassium level. At one point they were considering pacemaker placement however heart rate improved with potassium level coming down. Patient denies any chest pain or isolated area of weakness. No confusion. Patient denies dyspnea. - Related Data Home Medications Medication Instructions Recorded Confirmed FLUoxetine HCL [PROzac] 20 mg PO DAILY@1000 07/03/13 09/19/19 LORazepam [Ativan] 1 mg PO TID@0000,1000,1700 04/27/17 09/19/19 Ranolazine [Ranexa] 1,000 mg PO BID@1000,2200 04/27/17 09/19/19 oxyCODONE HCL [Roxicodone] 5 mg PO BID@1000,1700 04/27/17 09/19/19 Isosorbide Mononitrate ER [Imdur] 30 mg PO DAILY@1000 06/26/18 09/19/19 Gabapentin [Neurontin] 100 mg PO TID@0000,1000,1700 05/07/19 09/19/19 Iron Polysaccharide Complex 150 mg PO MOWEFR@22005/07/19 09/19/19 [Myferon 150] Nitroglycerin Sl Tabs [Nitrostat] 0.4 mg SUBLINGUAL Q5M PRN 05/07/19 09/19/19 Rivaroxaban [Xarelto] 15 mg PO DAILY@1700 05/07/19 09/19/19 oxyCODONE HCL [Roxicodone] 10 mg PO DAILY@0000 05/07/19 09/19/19 rOPINIRole HCL [Requip] 1 mg PO TID@0000,1000,1700 05/07/19 09/19/19 Folic Acid 1 mg PO HS@2200 08/12/19 09/19/19 Polyethylene Glycol 3350 [Miralax] 17 gm PO DAILY 08/12/19 09/19/19 Sodium Bicarbonate Tab 650 mg PO BID@1000,2200 08/20/19 09/19/19 Previous Rx's Medication Instructions Recorded Terazosin [Hytrin] 8 mg PO HS@0000 #120 cap 08/22/19 Torsemide [Demadex] 60 mg PO DAILY@1000 tab 09/02/19 NIFEdipine XL [Procardia XL] 30 mg PO HS 30 Days #30 tab.er.24 09/13/19 Allergies Allergy/AdvReac Type Severity Reaction Status Date / Time pravastatin Allergy Rash/Hives Verified 09/19/19 12:44 amlodipine AdvReac CONSTIPATIO Verified 09/19/19 12:44 N atenolol AdvReac MALE ED Verified 09/19/19 12:44 hydrochlorothiazide AdvReac RENAL Verified 09/19/19 12:44 IMPAIRMENT Review of Systems ROS Statement: Those systems with pertinent positive or pertinent negative responses have been documented in the HPI. ROS Other: All systems not noted in ROS Statement are negative. Constitutional: Denies: fever Eyes: Denies: eye pain ENT: Denies: ear pain Respiratory: Denies: cough Cardiovascular: Denies: chest pain Endocrine: Reports: fatigue Gastrointestinal: Denies: abdominal pain Genitourinary: Denies: dysuria Musculoskeletal: Denies: back pain Skin: Denies: rash Neurological: Denies: headache Past Medical History Past Medical History: Atrial Fibrillation, Coronary Artery Disease (CAD), Chest Pain / Angina, Heart Failure, Hyperlipidemia, Hypertension, Myocardial Infarction (DE), Osteoarthritis (OA), Renal Disease Additional Past Medical History / Comment(s): ? 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 pt stated has slept in recliner chair for past 10 years, uti ecoli 2013. gout in past, djd, lumbar disc disease. restless leg , leg cellulitis/swelling, falls/ Last Myocardial Infarction Date:: 2009 History of Any Multi-Drug Resistant Organisms: None Reported Date of last positivie culture/infection: 04/02/2018 MDRO Source:: leg wound Past Surgical History: Heart Catheterization With Stent, Tonsillectomy Additional Past Surgical History / Comment(s): [id number] stents, rt hand sx to repair severed lig/tendons(age 20) has limited use of index finger Past Anesthesia/Blood Transfusion Reactions: No Reported Reaction Additional Past Anesthesia/Blood Transfusion Reaction / Comment(s): clausterphobia Date of Last Stent Placement:: 2009 Past Psychological History: No Psychological Hx Reported Smoking Status: Never smoker Past Alcohol Use History: None Reported Past Drug Use History: None Reported - Past Family History Mother Family Medical History: Cancer Additional Family Medical History / Comment(s): breast cancer, heart problems was on warfarin(pt stated she bled out) Father Family Medical History: Coronary Artery Disease (CAD), Myocardial Infarction (DE) Additional Family Medical History / Comment(s): Father had his 1st DE in his 50s and then from his 2nd DE at the age of 74yrs. General Exam Limitations: no limitations General appearance: alert, in no apparent distress Head exam: Present: normocephalic Eye exam: Present: normal appearance, PERRL Neck exam: Present: normal inspection Respiratory exam: Present: normal lung sounds bilaterally Cardiovascular Exam: Present: bradycardia Expanded Peripheral pulses: 2+: Radial (R), Radial (L) GI/Abdominal exam: Present: soft. Absent: tenderness Extremities exam: Absent: tenderness, calf tenderness Neurological exam: Present: alert Psychiatric exam: Present: normal affect, normal mood Skin exam: Present: other (Leg discoloration reported as chronic and unchanged) Course Vital Signs 09/19/19 11:48 Temperature 97.1 F L Pulse Rate 38 L Respiratory 18 Rate Blood Pressure 108/97 O2 Sat by Pulse 93 L Oximetry - Reevaluation(s) Reevaluation #1: 09/19/19 12:38 Case was discussed with Dr. Fernandez who recommends peripheral dopamine at 3-4 mcgs pending potassium level. 09/19/19 13:41 Patient was earlier seen by Dr. Fernandez. EKG Findings - EKG Comments: EKG Findings:: Bradycardia with rate of 42. QRS 118. QT 42. QTC 402. Left axis. Low QRS voltage. There is motion artifact limiting evaluation of there is some appearance of atrial fibrillation however cannot rule out heart block. Medical Decision Making - Medical Decision Making Patient reevaluated and resting comfortably in bed. Patient and family updated on results and plan. adds that this is the fourth time patient has had potassium problems in the past month. She does question of patient can be a candidate for dialysis. Nephrology will be placed on consult. Case was discussed with Dr. caroline lester [facility], covering for hospital call, who will admit. - Lab Data Result diagrams: 09/19/19 12:30 09/19/19 12:30 Lab Results 09/19/19 09/19/19 09/19/19 Range/Units 12:30 12:30 12:30 WBC 11.1 H (3.8-10.6) k/uL RBC 3.46 L (4.30-5.90) m/uL Hgb 10.7 L (13.0-17.5) gm/dL Hct 33.0 L (39.0-53.0) % MCV 95.6 (80.0-100.0) fL MCH 31.1 (25.0-35.0) pg MCHC 32.5 (31.0-37.0) g/dL RDW 13.6 (11.5-15.5) % Plt Count 402 (150-450) k/uL Neutrophils % 81 % Lymphocytes % 6 % Monocytes % 7 % Eosinophils % 3 % Basophils % 1 % Neutrophils # 9.0 H (1.3-7.7) k/uL Lymphocytes # 0.6 L (1.0-4.8) k/uL Monocytes # 0.8 (0-1.0) k/uL Eosinophils # 0.4 (0-0.7) k/uL Basophils # 0.1 (0-0.2) k/uL PT 11.6 (9.0-12.0) sec INR 1.1 (<1.2) APTT 35.4 H (22.0-30.0) sec Sodium 117 L* (137-145) mmol/L Potassium 6.7 H* (3.5-5.1) mmol/L Chloride 84 L (98-107) mmol/L Carbon Dioxide 19 L (22-30) mmol/L Anion Gap 14 mmol/L BUN 110 H* (9-20) mg/dL Creatinine 3.94 H (0.66-1.25) mg/dL Est GFR (CKD-EPI)AfAm 16 (>60 ml/min/1.73 sqM) Est GFR (CKD-EPI)NonAf 14 (>60 ml/min/1.73 sqM) Glucose 121 H (74-99) mg/dL Calcium 9.0 (8.4-10.2) mg/dL Magnesium 3.5 H (1.6-2.3) mg/dL Total Bilirubin 0.7 (0.2-1.3) mg/dL AST 27 (17-59) U/L ALT 18 (4-49) U/L Alkaline Phosphatase 80 (38-126) U/L Creatine Kinase 116 (55-170) U/L Troponin I (0.000-0.034) ng/mL Total Protein 7.7 (6.3-8.2) g/dL Albumin 4.1 (3.5-5.0) g/dL TSH 1.600 (0.465-4.680) mIU/L Free T4 0.98 (0.78-2.19) ng/dL Free T3 pg/mL 2.9 (2.8-5.3) pg/ml 09/19/19 Range/Units 12:30 WBC (3.8-10.6) k/uL RBC (4.30-5.90) m/uL Hgb (13.0-17.5) gm/dL Hct (39.0-53.0) % MCV (80.0-100.0) fL MCH (25.0-35.0) pg MCHC (31.0-37.0) g/dL RDW (11.5-15.5) % Plt Count (150-450) k/uL Neutrophils % % Lymphocytes % % Monocytes % % Eosinophils % % Basophils % % Neutrophils # (1.3-7.7) k/uL Lymphocytes # (1.0-4.8) k/uL Monocytes # (0-1.0) k/uL Eosinophils # (0-0.7) k/uL Basophils # (0-0.2) k/uL PT (9.0-12.0) sec INR (<1.2) APTT (22.0-30.0) sec Sodium (137-145) mmol/L Potassium (3.5-5.1) mmol/L Chloride (98-107) mmol/L Carbon Dioxide (22-30) mmol/L Anion Gap mmol/L BUN (9-20) mg/dL Creatinine (0.66-1.25) mg/dL Est GFR (CKD-EPI)AfAm (>60 ml/min/1.73 sqM) Est GFR (CKD-EPI)NonAf (>60 ml/min/1.73 sqM) Glucose (74-99) mg/dL Calcium (8.4-10.2) mg/dL Magnesium (1.6-2.3) mg/dL Total Bilirubin (0.2-1.3) mg/dL AST (17-59) U/L ALT (4-49) U/L Alkaline Phosphatase (38-126) U/L Creatine Kinase (55-170) U/L Troponin I <0.012 (0.000-0.034) ng/mL Total Protein (6.3-8.2) g/dL Albumin (3.5-5.0) g/dL TSH (0.465-4.680) mIU/L Free T4 (0.78-2.19) ng/dL Free T3 pg/mL (2.8-5.3) pg/ml - Radiology Data Radiology results: image reviewed (Chest x-ray shows improving of volume overload. Cardiomegaly.) Critical Care Time Critical Care Time: Yes Total Critical Care Time: 33 Disposition Clinical Impression: Hyperkalemia, Bradycardia [facility] Condition: Serious Is patient prescribed a controlled substance at d/c from ED?: No Referrals: Jerod Braun MD [Primary Care Provider] - 1-2 days Decision Time: 13:42
[2019-09-19] MEDS ORDERED: DOPamine DRIP 800 MG in DEXTROSE/WATER 1 250ML.BAG IV ONE (12:38)
[2019-09-19 12:44] LABS: Basophils # (A) 0.1 k/uL (0-0.2); Basophils % (A) 1 %; Eosinophils # (A) 0.4 k/uL (0-0.7); Eosinophils % (A) 3 %; HGB 10.7 gm/dL (13.0-17.5); Lymphocytes # (A) 0.6 k/uL (1.0-4.8); Lymphocytes % (A) 6 %; MCH 31.1 pg (25.0-35.0); MCHC 32.5 g/dL (31.0-37.0); MCV 95.6 fL (80.0-100.0); Monocytes # (A) 0.8 k/uL (0-1.0); Monocytes % (A) 7 %; Neutrophils % (A) 81 %; Platelet Count 402 k/uL (150-450); RBC 3.46 m/uL (4.30-5.90); RDW 13.6 % (11.5-15.5); WBC 11.1 k/uL (3.8-10.6)
--- NOTE | 2019-09-19 12:49 | XR ---
EXAMINATION TYPE: XR chest 1V portable DATE OF EXAM: 09/19/2019 COMPARISON: 09/11/2019 INDICATION: Dysrhythmia TECHNIQUE: Single frontal view of the chest is obtained. Patient is kyphotic and the chin overlies th e left upper lung field. FINDINGS: The heart size is moderately prominent. The pulmonary vasculature is upper limits of normal. Mild diffuse increased lung markings are present. This is improved from comparison. IMPRESSION: 1. Improving volume overload with cardiomegaly.
[2019-09-19 12:57] LABS: Albumin 4.1 g/dL (3.5-5.0); Magnesium 3.5 mg/dL (1.6-2.3); Total Bilirubin 0.7 mg/dL (0.2-1.3); Total Protein 7.7 g/dL (6.3-8.2)
[2019-09-19 12:59] LABS: INR 1.1 (<1.2); Partial Thromboplastin Time 35.4 sec (22.0-30.0); Prothrombin Time 11.6 sec (9.0-12.0)
[2019-09-19] MEDS ORDERED: SODIUM BICARB 8.4% 50 ML SYR (1 MEQ/ML) IV STA ×2 (13:04→17:41)
[2019-09-19 13:09] LABS: Potassium 6.7 mmol/L (3.5-5.1)
[2019-09-19 13:12] LABS: T4, Free (Free Thyroxine) 0.98 ng/dL (0.78-2.19)
[2019-09-19] MEDS ORDERED: FUROSEMIDE 10 MG/ML 4 ML VIAL IV STA (13:15)
[2019-09-19] MEDS ORDERED: CALCIUM GLUCONATE 1 GM in SODIUM CHLORIDE 0.9% 100 ML IVPB ONE ×2 (13:15→17:41)
[2019-09-19] MEDS ORDERED: SODIUM POLYSTYRENE SULFONATE 15 GM/60 ML BOTTLE PO STA (13:16)
[2019-09-19] MEDS ORDERED: DEXTROSE 50% SYRINGE 50 ML IVP STA ×2 (13:16→17:40)
[2019-09-19] MEDS ORDERED: INSULIN REGULAR 100 UNIT/ML VIAL IV ONE ×2 (13:16→17:40)
[2019-09-19] MEDS ORDERED: ALBUTEROL NEBULIZED 2.5 MG/3 ML INHALATION STA (13:22)
[2019-09-19] MEDS ORDERED: NALOXONE 0.4 MG/ML 1 ML VIAL IV PRN (13:42)
[2019-09-19] MEDS ORDERED: SODIUM CHLORIDE 0.9% 1,000 ML IV STA (13:46)
[2019-09-19 15:31] LABS: Glucose,Whole Blood 99 mg/dL (75-99)
[2019-09-19 15:34] LABS: Glucose,Whole Blood 105 mg/dL (75-99)
[2019-09-19 17:19] LABS: Calcium 8.9 mg/dL (8.4-10.2)
[2019-09-19 17:30] LABS: Potassium 6.4 mmol/L (3.5-5.1)
[2019-09-19] MEDS ORDERED: ONDANSETRON 4 MG/2 ML VIAL IVP PRN (18:02)
--- NOTE | 2019-09-19 18:09 | P.HPIM ---
History of Present Illness H&P Date: 09/19/19 Chief Complaint: weakness Patient is a 74-year-old male with a past medical history of chronic kidney disease stage IV, bradycardia, A. fib, coronary artery disease with prior MN and stenting, and multiple other medical conditions who presented to the hospital secondary to increased fatigue and weakness. Of note this is due to this hospitalization during the month of August all which have been related to hyperkalemia, acute kidney injury, and the last one also had bradycardia with consideration for possible pacemaker. On arrival to the ER he was bradycardic with a heart rate of 38 and hypotensive with a blood pressure of 108/97. Urinalysis showed white blood cell count 11.1, hemoglobin 10.7, sodium 117, potassium 6.7, carbon dioxide 19, anion gap 14, BUN 110, creatinine 3.94. He was seen by cardiology who recommended treatment of his potassium levels for his bradycardia. He was subsequently started on a dopamine drip. He received calcium gluconate, dextrose, insulin, Lasix, fluids, and Kayexalate. He required a dopamine drip to be started. He has been admitted to the ICU. Patient seen and examined at bedside. Patient's is most of the history gathering. She reports that she first noticed abnormality starting approximately 2 days ago. She had noticed some increased twitching in both of his hands, increased sleeping and fatigue, weakness, and decreased appetite. Yesterday evening she wanted him to come to the hospital however he refused. At that point in time she did notice that his heart rate was rapidly alternating. This morning he was slightly worse. The home health care nurse came out and his heart rate was between 36-38 and his systolic blood pressure was 94. They decided to come to the emergency department at that point in time she also reports decreased appetite the last 2 days. He isn't sleeping almost const antly. He is unsure if he has had change in urination. He receives most of his care through the [facility]. They have not been able to establish with cardiology or nephrology in the outpatient setting as of yet. They report that his lower extremity are wound free at this point in time but he has chronic lymphedema they typically keep his left lower extremity wrapped. PCP: Dr Barber through [facility] No Nephrology appointment as outpatient yet. No [employer] Associate Review of Systems Pertinent positives and negatives as discussed in HPI, a complete review of systems was performed and all other systems are negative. Past Medical History Past Medical History: Atrial Fibrillation, Coronary Artery Disease (CAD), Chest Pain / Angina, Heart Failure, Eye Disorder, Hypertension, Myocardial Infarction (MN), Osteoarthritis (OA), Renal Disease Additional Past Medical History / Comment(s): Pt recently admitted to [facility] on 09/10/19 with acute renal failiure/hyperkalemia-3rd degree heart block. Other hx: Past bradycardia/hyperkalemia, CKD stage IV, UTIs, chronic lymphedema, bilateral lower leg cellulitis, spouse states has pin size wound R ankle/weeping from R lower leg/keeps L lower leg in wraps for edema, RLS, chronic low back pain/bulging/herniated discs-sleeps in a recliner, past gout, indirect exposure to agent orange, cataracts, R index finger injury/surgery with limited ROM.. Last Myocardial Infarction Date:: 2009 History of Any Multi-Drug Resistant Organisms: None Reported Date of last positivie culture/infection: 04/02/2018 MDRO Source:: leg wound Past Surgical History: Heart Catheterization With Stent, Tonsillectomy Additional Past Surgical History / Comment(s): [id number] stents, rt hand sx to repair severed lig/tendons(age 20). Past Anesthesia/Blood Transfusion Reactions: No Reported Reaction Additional Past Anesthesia/Blood Transfusion Reaction / Comment(s): clausterphobia Date of Last Stent Placement:: 2009 Smoking Status: Never smoker, Second hand smoke exposure Additional History: walker to stand/pivite, wheelchair. Residential home care - Past Family History Mother Family Medical History: Cancer Additional Family Medical History / Comment(s): breast cancer, heart problems was on warfarin(pt stated she bled out) Father Family Medical History: Coronary Artery Disease (CAD), Myocardial Infarction (MN) Additional Family Medical History / Comment(s): Father had his 1st MN in his 50s and then from his 2nd MN at the age of 74yrs. Medications and Allergies Home Medications Medication Instructions Recorded Confirmed Type FLUoxetine HCL [PROzac] 20 mg PO DAILY@1000 07/03/13 09/19/19 History LORazepam [Ativan] 1 mg PO TID@0000,1000,1700 04/27/17 09/19/19 History Ranolazine [Ranexa] 1,000 mg PO BID@1000,2200 04/27/17 09/19/19 History oxyCODONE HCL [Roxicodone] 5 mg PO BID@1000,1700 04/27/17 09/19/19 History Isosorbide Mononitrate ER [Imdur] 30 mg PO DAILY@1000 06/26/18 09/19/19 History Gabapentin [Neurontin] 100 mg PO TID@0000,1000,1700 05/07/19 09/19/19 History Iron Polysaccharide Complex 150 mg PO MOWEFR@2200 05/07/19 09/19/19 History [Myferon 150] Nitroglycerin Sl Tabs [Nitrostat] 0.4 mg SUBLINGUAL Q5M PRN 05/07/19 09/19/19 History Rivaroxaban [Xarelto] 15 mg PO DAILY@1700 05/07/19 09/19/19 History oxyCODONE HCL [Roxicodone] 10 mg PO DAILY@0000 05/07/19 09/19/19 History rOPINIRole HCL [Requip] 1 mg PO TID@0000,1000,1700 05/07/19 09/19/19 History Folic Acid 1 mg PO HS@2200 08/12/19 09/19/19 History Polyethylene Glycol 3350 [Miralax] 17 gm PO DAILY 08/12/19 09/19/19 History Sodium Bicarbonate Tab 650 mg PO BID@1000,2200 08/20/19 09/19/19 History Terazosin [Hytrin] 8 mg PO HS@0000 #120 cap 08/22/19 09/19/19 Rx Torsemide [Demadex] 60 mg PO DAILY@1000 tab 09/02/19 09/19/19 Rx NIFEdipine XL [Procardia XL] 30 mg PO HS 30 Days #30 tab.er.24 09/13/19 09/19/19 Rx Allergies Allergy/AdvReac Type Severity Reaction Status Date / Time pravastatin Allergy Rash/Hives Verified 09/19/19 12:44 amlodipine AdvReac CONSTIPATIO Verified 09/19/19 12:44 N atenolol AdvReac MALE ED Verified 09/19/19 12:44 hydrochlorothiazide AdvReac RENAL Verified 09/19/19 12:44 IMPAIRMENT Physical Exam Osteopathic Statement: *. No significant issues noted on an osteopathic structural exam other than those noted in the History and Physical/Consult. Vitals: Vital Signs Temp Pulse Resp BP Pulse Ox 09/19/19 15:00 97.9 F 40 L 18 112/76 96 09/19/19 14:02 98.0 F 42 L 18 106/71 97 09/19/19 13:54 42 L 09/19/19 13:41 40 L 09/19/19 11:48 97.1 F L 38 L 18 108/97 93 L Intake and Output 09/19/19 09/19/19 09/19/19 06:59 14:59 22:59 Other: Weight 120.701 kg General: ill appearing, mild distress, appears older than stated age Derm: dusk appearance to bilateral lower extremities, skin thinning, warm, dry Head: atraumatic, normocephalic, symmetric Eyes: EOMI, no lid lag, anicteric sclera, pupils equal round reactive to light, hard of hearing ENT: Nose and ears atraumatic, no thrush, no pharyngeal erythema Neck: No thyromegaly, no cervical lymphadenopathy, trachea midline, supple Mouth: no lip lesion, mucus membranes moist Cardiovascular: S1S2 reg, no murmur, positive posterior tibial pulse bilateral, no edema, capillary refill greater than 2 seconds Lungs: Coarse breath sounds bilateral without definitive wheeze or crackles, no accessory muscle use Abdominal: soft, nontender to palpation, no guarding, no appreciable organomega ly, normal bowel sounds Ext: no gross muscle atrophy, muscle strength muscle strength 4 out of 5 in bilateral upper extremities, 4 out of 5 in the right lower extremity, no contractures, Neuro: CN II-XI grossly intact, light touch intact all 4 extremities, finger to nose within normal limits, + astersix Psych: Alert, oriented, slowed thinking Results CBC & Chem 7: 09/19/19 12:30 09/19/19 12:30 Labs: Abnormal Lab Results - Last 24 Hours (Table) 09/19/19 09/19/19 09/19/19 Range/Units 12:30 12:30 12:30 WBC 11.1 H (3.8-10.6) k/uL RBC 3.46 L (4.30-5.90) m/uL Hgb 10.7 L (13.0-17.5) gm/dL Hct 33.0 L (39.0-53.0) % Neutrophils # 9.0 H (1.3-7.7) k/uL Lymphocytes # 0.6 L (1.0-4.8) k/uL APTT 35.4 H (22.0-30.0) sec Sodium 117 L* (137-145) mmol/L Potassium 6.7 H* (3.5-5.1) mmol/L Chloride 84 L (98-107) mmol/L Carbon Dioxide 19 L (22-30) mmol/L BUN 110 H* (9-20) mg/dL Creatinine 3.94 H (0.66-1.25) mg/dL Glucose 121 H (74-99) mg/dL POC Glucose (mg/dL) (75-99) mg/dL Magnesium 3.5 H (1.6-2.3) mg/dL 09/19/19 Range/Units 15:32 WBC (3.8-10.6) k/uL RBC (4.30-5.90) m/uL Hgb (13.0-17.5) gm/dL Hct (39.0-53.0) % Neutrophils # (1.3-7.7) k/uL Lymphocytes # (1.0-4.8) k/uL APTT (22.0-30.0) sec Sodium (137-145) mmol/L Potassium (3.5-5.1) mmol/L Chloride (98-107) mmol/L Carbon Dioxide (22-30) mmol/L BUN (9-20) mg/dL Creatinine (0.66-1.25) mg/dL Glucose (74-99) mg/dL POC Glucose (mg/dL) 105 H (75-99) mg/dL Magnesium (1.6-2.3) mg/dL Chest x-ray: report reviewed Thrombosis Risk Factor Assmnt - DVT/VTE Prophylaxis DVT/VTE Prophylaxis: Pharmacologic Prophylaxis ordered - Choose All That Apply Any of the Below Risk Factors Present?: Yes Each Factor Represents 1 point: Obesity (BMI >25) Other Risk Factors: Yes Each Risk Factor Represents 2 Points: Age 61-74 years Other congenital or acquired thrombophilia - If yes, enter type in comment: No Thrombosis Risk Factor Assessment Total Risk Factor Score: 3 Thrombosis Risk Factor Assessment Level: Moderate Risk Assessment and Plan Assessment: Acute kidney injury on chronic kidney disease stage IV with hyperkalemia and non-anion gap metabolic acidosis, significant hyponatremia -Fully catheter inserted with 250 mL of urine -Discussed with nephrology initially labs were repeated, he did not have significant improvement in his hyperkalemia or sodium level despite IV fluids, Lasix, Kayexalate, insulin, glucose, calcium gluconate, or sodium bicarb. We will proceed with urgent hemodialysis. I have called Dr. Gonzalez was agreed to come in and place King catheter. -Avoid nephrotoxic agents -Strict I's and O's -Hold oral sodium bicarb -Repeat labs 2 hours after dialysis with basic metabolic profile Symptomatic bradycardia -Continue with dopamine drip -Hope to discontinue once patient has received dialysis -Cardiology recommendations -Telemetry -Less echocardiogram ejection fraction 55-60%, moderate TR, severe pulmonary hypertension, severe left atrial dilatation, severe right ventricle enlargement, moderate LVH Anemia -At baseline Atrial fibrillation -Hold Eliquis for placement of dialysis catheter last dose 09/17 -Not on any rate controlling medications so secondary to recent bradycardia -Cardiology recommendations Atherosclerotic coronary artery disease status post stenting -Start aspirin in a.m., on Eliquis but held for HD cath History of hypertension now with hypotension -Hold Hytrin and nifedipine -Hold Imdur -Follow blood pressures -On dopamine drip Significant peripheral vascular disease with chronic pain -Continue with oxycodone, Requip, and Ranexa The patient is admitted with an anticipated greater than 2 midnight stay for evaluation of EMMA, hyperkalemia, and CKD. Surrogate decision-maker: CODE STATUS:full DVT prophylaxis: ramirez Winter Discussed with: patient, , ed physician, nursing Anticipated discharge date: 4- days Anticipated discharge place: home with home health A total of 85 minutes was spent on the care of this complex patient more than 50% of the time was spent in counseling and care coordination.
--- NOTE | 2019-09-19 19:31 | XR ---
EXAMINATION TYPE: XR chest 1V portable DATE OF EXAM: 09/19/2019 COMPARISON: 09/19/2019 INDICATION: Dialysis catheter insertion TECHNIQUE: Single frontal view of the chest is obtained. FINDINGS: The heart size is moderately prominent. The pulmonary vasculature is prominent. Mild atelectasis may be at the left peripheral lung base. There is a catheter on the right with the tip in the distal superior vena cava. No pneumothorax is ev ident. IMPRESSION: 1. Mild atelectasis left lung base. 2. Catheter insertion with the tip in the distal superior vena cava. No pneumothorax is evident.
[2019-09-19] MEDS: HYDROcodone/APAP 5-325MG 1 EACH TAB PO PRN (21:53)
--- NOTE | 2019-09-19 21:59 | OP ---
OPERATIVE REPORT PREOPERATIVE DIAGNOSIS: Acute on chronic renal failure. PROCEDURE PERFORMED: Ultrasound-guided dialysis catheter placement, right jugular approach. PROCEDURE DESCRIPTION: The patient was seen in the intensive care unit. Right side of the neck and chest was prepped and draped in a sterile manner. Lidocaine 1% was infiltrated. Ultrasound- guided micropuncture was introduced into the right jugular vein. After that we passed a regular guidewire and then dilator was advanced. Then we placed a dialysis catheter on the top of the guidewire, flushed with heparin and saline and Hep-locked, secured with 3-0 nylon. Dressing was applied. Patient tolerated the procedure well. MMODL / IJN: [id number] /
[2019-09-19] MEDS ORDERED: IRON POLYSACCHARIDES COMPLEX 150 MG CAP PO SCH (22:00)
[2019-09-19] MEDS: NITROGLYCERIN SL TABS 0.4 MG TAB SUBLINGUAL PRN ×2 (22:14→23:15)
[2019-09-19] MEDS: FOLIC ACID 1 MG TAB PO SCH (22:30)
[2019-09-19] MEDS: RANOLAZINE 500 MG TAB.ER.12H PO SCH (22:30)
[2019-09-19] MEDS: LORazepam 1 MG TAB PO SCH (23:15)
[2019-09-19 23:53] LABS: Calcium 8.6 mg/dL (8.4-10.2); Potassium 4.4 mmol/L (3.5-5.1)
[2019-09-20] MEDS ORDERED: LORazepam 2 MG/ML INJ IV STA (00:57)
[2019-09-20 04:05] LABS: Hepatitis B Surface AB- Quant 194.2 mIU/mL; Hepatitis B Surface Antibody Reactive (Non-Reactive); Hepatitis B Surface Antigen Non-Reactive (Non-Reactive)
[2019-09-20 05:27] LABS: HCT 30.3 % (39.0-53.0); HGB 10.2 gm/dL (13.0-17.5); MCH 31.7 pg (25.0-35.0); MCHC 33.7 g/dL (31.0-37.0); MCV 94.2 fL (80.0-100.0); Mean Platelet Volume 6.9; Platelet Count 380 k/uL (150-450); RBC 3.21 m/uL (4.30-5.90); RDW 13.8 % (11.5-15.5); WBC 10.3 k/uL (3.8-10.6)
[2019-09-20 05:37] LABS: Albumin 3.6 g/dL (3.5-5.0); Calcium 8.7 mg/dL (8.4-10.2); Magnesium 2.8 mg/dL (1.6-2.3); Phosphorus 4.4 mg/dL (2.5-4.5); Potassium 4.6 mmol/L (3.5-5.1); Total Bilirubin 0.8 mg/dL (0.2-1.3); Total Protein 6.7 g/dL (6.3-8.2)
--- NOTE | 2019-09-20 07:54 | P.NPCON ---
History of Present Illness - Reason for Consult Consult date: 09/20/19 acute renal failure - Chief Complaint Acute kidney injury, congestive heart failure - History of Present Illness This is a 74-year-old male seen in consultation because of acute kidney injury and chronic kidney disease. Came in because of shortness of breath fatigue and weakness for the last 2 or 3 days. He was started on dopamine drip. On admission his creatinine was 3.94, sodium 117 potassium 6.7, bicarb 19 and chloride 84 This morning with dopamine his creatinine has come down to 2.79 potassium is 4.6. He is somewhat tearful sad because of being hospitalized. Is very difficult to obtain any reasonable history from him. He says his better. He is on nasal cannula oxygen. He has been admitted here in the last few weeks twice. On generalized weakness followed home, found to have acute kidney injury. This was deemed to be from diuresis. At the time he also had hyperkalemia and hyponatremia. He was discharged and readmitted on 09/10/2019, again with acute kidney injury, di scharged on 09/13/2019. His home medication included torsemide 60 daily there is a sense sodium bic arbonate and other medications Since being admitted on dopamine drip his pressure has come up to 120s to 130s. Urine output is 600 mL for the last 8 hour shift. His labs have improved with sodium at 125 and potassium at 4.6. Past Medical History Past Medical History: Atrial Fibrillation, Coronary Artery Disease (CAD), Chest Pain / Angina, Heart Failure, Eye Disorder, Hypertension, Myocardial Infarction (NH), Osteoarthritis (OA), Renal Disease Additional Past Medical History / Comment(s): Pt recently admitted to [facility] on 09/10/19 with acute renal failiure/hyperkalemia-3rd degree heart block. Other hx: Past bradycardia/hyperkalemia, CKD stage IV, UTIs, chronic lymphedema, bilateral lower leg cellulitis, spouse states has pin size wound R ankle/weeping from R lower leg/keeps L lower leg in wraps for edema, RLS, chronic low back pain/bulging/herniated discs-sleeps in a recliner, past gout, indirect exposure to agent orange, cataracts, R index finger injury/surgery with limited ROM.. Last Myocardial Infarction Date:: 2009 History of Any Multi-Drug Resistant Organisms: None Reported Date of last positivie culture/infection: 04/02/2018 MDRO Source:: leg wound Past Surgical History: Heart Catheterization With Stent, Tonsillectomy Additional Past Surgical History / Comment(s): [id number] stents, rt hand sx to repair severed lig/tendons(age 20). Past Anesthesia/Blood Transfusion Reactions: No Reported Reaction Additional Past Anesthesia/Blood Transfusion Reaction / Comment(s): clausterphobia Date of Last Stent Placement:: 2009 Smoking Status: Never smoker, Second hand smoke exposure - Past Family History Mother Family Medical History: Cancer Additional Family Medical History / Comment(s): breast cancer, heart problems was on warfarin(pt stated she bled out) Father Family Medical History: Coronary Artery Disease (CAD), Myocardial Infarction (NH) Additional Family Medical History / Comment(s): Father had his 1st NH in his 50s and then from his 2nd NH at the age of 74yrs. Medications and Allergies Home Medications Medication Instructions Recorded Confirmed Type FLUoxetine HCL [PROzac] 20 mg PO DAILY@1000 07/03/13 09/19/19 History LORazepam [Ativan] 1 mg PO TID@0000,1000,17004/27/17 09/19/19 History Ranolazine [Ranexa] 1,000 mg PO BID@1000,219904/27/17 09/19/19 History oxyCODONE HCL [Roxicodone] 5 mg PO BID@1000,1700 04/27/17 09/19/19 History Isosorbide Mononitrate ER [Imdur] 30 mg PO DAILY@1000 06/26/18 09/19/19 History Gabapentin [Neurontin] 100 mg PO TID@0000,1000,169905/07/19 09/19/19 History Iron Polysaccharide Complex 150 mg PO MOWEFR@219905/07/19 09/19/19 History [Myferon 150] Nitroglycerin Sl Tabs [Nitrostat] 0.4 mg SUBLINGUAL Q5M PRN 05/07/19 09/19/19 History Rivaroxaban [Xarelto] 15 mg PO DAILY@1700 05/07/19 09/19/19 History oxyCODONE HCL [Roxicodone] 10 mg PO DAILY@0000 05/07/19 09/19/19 History rOPINIRole HCL [Requip] 1 mg PO TID@0000,1000,1700 05/07/19 09/19/19 History Folic Acid 1 mg PO HS@2200 08/12/19 09/19/19 History Polyethylene Glycol 3350 [Miralax] 17 gm PO DAILY 08/12/19 09/19/19 History Sodium Bicarbonate Tab 650 mg PO BID@1000,2200 08/20/19 09/19/19 History Terazosin [Hytrin] 8 mg PO HS@0000 #120 cap 08/22/19 09/19/19 Rx Torsemide [Demadex] 60 mg PO DAILY@1000 tab 09/02/19 09/19/19 Rx NIFEdipine XL [Procardia XL] 30 mg PO HS 30 Days #30 tab.er.24 09/13/19 09/19/19 Rx Allergies Allergy/AdvReac Type Severity Reaction Status Date / Time pravastatin Allergy Rash/Hives Verified 09/19/19 12:44 amlodipine AdvReac CONSTIPATIO Verified 09/19/19 12:44 N atenolol AdvReac MALE ED Verified 09/19/19 12:44 hydrochlorothiazide AdvReac RENAL Verified 09/19/19 12:44 IMPAIRMENT Physical Exam Vitals: Vital Signs Temp Pulse Pulse Resp BP BP Pulse Ox 09/20/19 07:00 58 L 16 135/55 94 L 09/20/19 06:30 57 L 17 127/61 94 L 09/20/19 06:00 57 L 16 106/68 96 09/20/19 05:30 58 L 22 128/52 93 L 09/20/19 05:00 64 19 126/64 94 L 09/20/19 04:30 60 18 133/55 90 L 09/20/19 04:00 61 10 L 132/52 94 L 09/20/19 03:30 58 L 12 130/53 92 L 09/20/19 03:00 63 14 131/51 94 L 09/20/19 02:30 64 12 131/54 95 09/20/19 02:00 61 15 136/64 96 09/20/19 01:30 62 15 137/108 98 09/20/19 01:00 60 13 143/50 100 09/20/19 00:30 63 19 131/56 100 09/20/19 00:00 97.5 F L 61 20 131/64 98 07/31/20 23:30 64 14 119/92 96 09/19/19 23:18 63 15 128/52 99 09/19/19 23:00 60 18 135/59 99 09/19/19 22:30 62 16 135/57 98 09/19/19 22:00 65 12 116/67 100 09/19/19 21:30 56 L 13 123/48 100 09/19/19 21:20 96.8 F L 56 L 16 122/49 09/19/19 21:00 55 L 14 129/48 99 09/19/19 20:30 54 L 16 124/50 99 09/19/19 20:00 96.8 F L 55 L 17 118/59 97 09/19/19 19:30 42 L 12 119/42 98 09/19/19 19:00 44 L 19 117/51 97 09/19/19 18:00 44 L 14 112/47 98 09/19/19 17:00 41 L 15 114/70 97 09/19/19 16:00 96.3 F L 44 L 13 115/91 97 09/19/19 15:00 97.9 F 41 L 18 96/71 96 09/19/19 14:02 98.0 F 42 L 18 106/71 97 09/19/19 13:54 42 L 09/19/19 13:41 40 L 09/19/19 11:48 97.1 F L 38 L 18 108/97 93 L Intake and Output 09/19/19 09/20/19 09/20/19 22:59 06:59 14:59 Intake Total 375 600 75 Output Total 810 555 75 Balance -435 45 0 Intake: IV 375 600 75 Sodium Chloride 0.9% 1, 375 600 75 000 ml @ 75 mls/hr IV . [id number] STA Rx#:[id number] Output: Urine 310 555 75 Hemodialysis 500 Other: Voiding Method Indwelling Catheter Indwelling Catheter Weight 126.6 kg On examination as mentioned his depressed interiors and is unable to give me any history. According to nursing staff is not confused. HEENT exam no JVP neck is supple no facial asymmetry Lungs are significant for an occasional fine crackle but his inspiratory effort is rather poor. Heart sounds are unremarkable no murmur rub gallop Abdomen soft nontender no organomegaly ascites masses Extremity exam was mild edema Neurologically awake alert but in tears and unable to give me any response asked any questions. His profound generalized weakness Results - Lab Results Most recent lab results Calcium 8.7 mg/dL (8.4-10.2) 09/20/19 04:21 Phosphorus 4.4 mg/dL (2.5-4.5) 09/20/19 04:21 Magnesium 2.8 mg/dL (1.6-2.3) H 09/20/19 04:21 09/20/19 04:21 09/20/19 04:21 Assessment and Plan Assessment: Impression 1. Acute kidney injury secondary to prerenal from poor cardiac output, improved on dopamine drip. An echocardiogram April 2019 shows 60% ejection fraction severely pulmonary hypertension 2. Chronic kidney disease stage III, secondary to nephrosclerosis. Baseline creatinine is 2.5. 3. Congestive heart failure improved. On dopamine drip as well as on Lasix when necessary 4. Anemia of chronic kidney disease hemoglobin is 10.2 5. Mild degree of non-gap acidosis from acute kidney injury resolved Recommendation 1. Continue Lasix at 20 mg by mouth daily. 2. Continue dopamine for 1 more day. 3. Monitor labs intake and output 4. Check iron saturation Thank you for this consultation and will continue to follow
--- NOTE | 2019-09-20 08:30 | CONS ---
CONSULTATION This is a 74-year-old gentleman who has been admitted to ICU unit. I was consulted for placement of urgent dialysis catheter. The patient has history of atrial fibrillation, coronary artery disease, prior myocardial infarction with stent placement and multiple other medical condition. The patient was admitted due to increased fatigue and weak. PAST HISTORY: Patient has atrial fibrillation, coronary artery disease, heart failure, hypertension, myocardial infarction, acute on chronic renal failure. PHYSICAL EXAMINATION: The patient was seen in his room. The patient is not short of breath. The chest has crackles bilaterally. Abdomen is soft. Femorals are 1+ with some swelling of the extremity. PLAN: Placement of the dialysis catheter. Risks and complications discussed. MMODL / IJN: [id number] /
[2019-09-20] MEDS: FLUoxetine HCL 20 MG CAP PO SCH (09:08)
[2019-09-20] MEDS: polyethylene glycoL 3350 17 GM POWD.PACK PO SCH (09:11)
[2019-09-20] MEDS: RANOLAZINE 500 MG TAB.ER.12H PO SCH ×2 (10:36→22:22)
[2019-09-20] MEDS: LORazepam 1 MG TAB PO SCH ×2 (10:36→16:01)
[2019-09-20 11:22] LABS: % Iron Saturation 25.27 (15.00-50.00)
[2019-09-20 11:31] LABS: Ferritin 114.2 ng/mL (22.0-322.0)
[2019-09-20] MEDS: HYDROcodone/APAP 5-325MG 1 EACH TAB PO PRN (11:50)
[2019-09-20] MEDS: NITROGLYCERIN SL TABS 0.4 MG TAB SUBLINGUAL PRN ×2 (11:55→12:16)
[2019-09-20 12:06] LABS: Glucose,Whole Blood 114 mg/dL (75-99)
--- NOTE | 2019-09-20 12:47 | CONS ---
CONSULTATION PULMONARY/CRITICAL CARE CONSULTATION: DATE OF CONSULTATION: September 20, 2019 HISTORY OF PRESENT ILLNESS: This is a 74-year-old gentleman who presented to the emergency department with complaints of fatigue and generalized weakness. He apparently was sent here by his physician because of abnormal laboratory information. The patient has not been feeling well for the last 2 or 3 days. He was recently in the hospital for similar episode. He was noted to have a very high potassium and also had associated bradycardia. Apparently at 1 point, pacemaker placement was anticipated, but that was never done. Currently, he is on saline at 75 mL an hour, dopamine drip of 4 mics per kg per minute, O2 at 2 L. The patient does not appear to be in any distress. There is no shortness of breath. Denies any chest pain. There is no nausea, vomiting or diarrhea. There is no abdominal pain. CURRENT MEDICATIONS: Reviewed. He is on Prozac, Ativan, Ranexa, Roxicodone, Imdur, Neurontin, iron complex, Nitrostat, Xarelto, Requip, folic acid, MiraLAX, sodium bicarbonate tablets, Hytrin, Demadex, Procardia XL. ALLERGIES: Include PRAVASTATIN, AMLODIPINE, ATENOLOL, HYDROCHLOROTHIAZIDE. MEDICAL HISTORY: Medical history includes atrial fibrillation, CAD, chest pain, heart failure, hyperlipidemia, hypertension, myocardial infarction, osteoarthritis, chronic kidney disease. The patient also has history of chronic back pain and herniated disc, E coli urinary tract infection, gout, restless legs syndrome, and lower extremity cellulitis. SURGICAL HISTORY: Includes heart catheterization with stent, tonsillectomy, right hand surgery, and some other minor procedures. SOCIAL HISTORY: Negative for tobacco use. Denies alcohol use or illicit drug use. FAMILY HISTORY: Positive for mother with breast cancer and heart problems and a father who has history of CAD, myocardial infarction. REVIEW OF SYSTEMS: CONSTITUTIONAL: Weakness. NEUROLOGIC negative. HEENT negative. CARDIOVASCULAR bradycardia. PULMONARY: Negative. GI negative. : Negative. RHEUMATOLOGIC: Negative. IMMUNOLOGIC negative. ENDOCRINOLOGIC negative. DERMATOLOGIC negative. PHYSICAL EXAMINATION: VITAL SIGNS: Current vital signs are reviewed. Temperature is 97.8. Heart rate 57, respiratory rate 18, blood pressure 135/52, mean 79, 2 L saturation 97%. GENERAL: Appears in no acute distress. HEENT: Examination is grossly unremarkable. NECK: Supple. Full range of motion. No adenopathy. Neck veins are flat. CARDIOVASCULAR: Examination reveals regular rhythm and rate. Heart rate about 60 beats per minute. S1, S2 normal. No distinct murmur. LUNGS: Reveal clear breath sounds equal. No wheezes, rhonchi, or crackles. ABDOMEN: Soft. Bowel sounds are heard. EXTREMITIES: Reveal some chronic venous stasis changes. Some mild edema. SKIN: Without rash other than what was mentioned above. NEUROLOGIC: Examination is brief but nonfocal. LABS: Reviewed. White count 10.3, hemoglobin 10.2, hematocrit 30.3, platelet count 380,000. PT/INR normal. PTT is 35.4. Sodium 117, back up to 125, potassium was 6.7 down to 4.6, BUN and creatinine were 69 and 2.79 compared to 110 and 3.94 on admission. Anion gap is now normal. The rest of the labs look okay. Microbiology is currently negative. A chest x-ray is showing some atelectasis at the left lung base. Current medications are reviewed. He is currently on Tylenol, Prozac, folic acid, gabapentin, [place], iron, Ativan, Narcan, sublingual nitroglycerin, Zofran, oxycodone, polyethylene glycol, Ranexa and Requip. ASSESSMENT: 1. Hyperkalemia with bradycardia, much improved. 2. Hyponatremia. 3. Acute on chronic kidney disease. 4. History of atrial fibrillation. 5. History of coronary artery disease with previous stent placement. 6. Angina pectoris. 7. Congestive heart failure. 8. Hyperlipidemia. 9. Hypertension. 10.Myocardial infarction. 11.Degenerative joint disease. 12.Chronic back pain. PLAN: Currently the patient is doing much better. He remains on dopamine of 4 mics kg per minute. I do not believe there are any plans at this point for pacemaker. Potassium has come down nicely. Sodium has come up nicely. We will continue to follow. Prognosis is guarded. No additional recommendations are made. MMODL / IJN: [id number] /
[2019-09-20] MEDS: NITROGLYCERIN OINT 1 INCH/GM PACKET TOPICAL SCH ×3 (12:56→23:58)
[2019-09-20] MEDS: hydrALAZINE HCL 50 MG TAB PO SCH ×3 (12:56→22:25)
--- NOTE | 2019-09-20 13:03 | P.PN ---
Subjective Progress Note Date: 09/20/19 History of present illness: This is a 74-year-old male patient of Dr. Griffin with past smoking history of atrial fibrillation, coronary artery disease, NE and previous stent, chronic kidney disease stage III. Patient presented with complaints of feeling fatigued and weak. He was found to be in acute renal failure with an initial potassium of 6.7 and sodium of 117. Patient is status post dialysis catheter placement with Dr. Gonzalez and he is receiving his second treatment of hemodialysis this morning. We have been asked to see the patient regarding niki ycardia initially presenting in the 40s, heart rate now in the 60s. Patient is not on any beta blockers. He had a similar hospitalization 2 weeks ago and labetalol was discontinued during that hospitalization. Patient has also been started on dopamine by nephrology. Patient is denying any chest pain or shortness of breath. No nausea or vomiting, no abdominal pain, no diarrhea. Repeat lab work reveals sodium 125, BUN 4.6, chloride 91, CO2 23, BUN 69 and creatinine 2.79. Magnesium is 2.8. Physical examination: Gen: This is a 74-year-old male. He is resting in the ICU, undergoing hemodialysis, patient appears comfortable. He is complaining of back discomfort. VS: Patient is afebrile, heart rate in the 50s and 60s, blood pressure 182/72, pulse ox 97% on 3 L nasal cannula. 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 Pupils equal, round. Sclerae is anicteric. NECK: Supple. No JVD. No lymphadenopathy. No thyromegaly. LUNGS: Clear to auscultation. No wheezes or rhonchi. No intercostal retractions. HEART: Regular rate and rhythm. No murmur. ABDOMEN: Soft. Bowel sounds are present. No masses. No tenderness. King catheter draining clear ángel urine. EXTREMITIES: No pedal edema. No calf tenderness. Chronic dark skin changes, dorsalis pedis palpable bilaterally. NEUROLOGICAL: Patient is awake, alert and oriented to person and place. Assessment: Acute kidney injury Chronic kidney disease stage III Bradycardia secondary to hyperkalemia Hyperkalemia secondary to acute kidney injury Paroxysmal atrial fibrillation History of coronary artery disease status post stenting Hypertension Hyperlipidemia Plan: Continue HD per nephrology Continue cardiac monitoring closely Continue dopamine per nephrology Monitor electrolytes If patient continues to have bradycardia once potassium is normalized, may require pacemaker implantation. Nurse practitioner note has been reviewed, I agree with documented findings and plan of care. Patient was seen and examined. Objective - Vital Signs Vital signs: Vital Signs Temp 97.7 F 09/20/19 11:48 Pulse 65 09/20/19 12:00 Resp 16 09/20/19 12:00 BP 182/72 09/20/19 12:00 Pulse Ox 97 09/20/19 12:00 Intake & Output 09/19/19 09/20/19 09/20/19 18:59 06:59 18:59 Intake Total 75 900 639.547 Output Total 30 1335 410 Balance 45 -435 229.547 Weight 120.701 kg 126.6 kg Intake: IV 75 900 450 Sodium Chloride 0.9% 1, 75 900 450 000 ml @ 75 mls/hr IV . [id number] STA Rx#:[id number] Intake, IV Titration 189.547 Amount DOPamine DRIP 800 mg In 189.547 Dextrose/Water 1 250ml. bag @ 4 MCG/KG/MIN 9.053 mls/hr IV .Q24H ONE Rx#: [id number] Output: Urine 30 835 410 Hemodialysis 500 Other: Voiding Method Indwelling Catheter Indwelling Catheter - Labs CBC & Chem 7: 09/20/19 04:21 09/20/19 04:21 Labs: Abnormal Lab Results - Last 24 Hours (Table) 09/19/19 09/19/19 09/19/19 Range/Units 12:30 12:30 15:32 RBC (4.30-5.90) m/uL Hgb (13.0-17.5) gm/dL Hct (39.0-53.0) % APTT 35.4 H (22.0-30.0) sec Sodium 117 L* (137-145) mmol/L Potassium 6.7 H* (3.5-5.1) mmol/L Chloride 84 L (98-107) mmol/L Carbon Dioxide 19 L (22-30) mmol/L BUN 110 H* (9-20) mg/dL Creatinine 3.94 H (0.66-1.25) mg/dL Glucose 121 H (74-99) mg/dL POC Glucose (mg/dL) 105 H (75-99) mg/dL Magnesium 3.5 H (1.6-2.3) mg/dL Hep Bs Antibody (Non-Reactive) Hep B Core Total Ab (Non-Reactive) 09/19/19 09/19/19 09/19/19 Range/Units 16:35 16:35 23:00 RBC (4.30-5.90) m/uL Hgb (13.0-17.5) gm/dL Hct (39.0-53.0) % APTT (22.0-30.0) sec Sodium 117 L* 125 L (137-145) mmol/L Potassium 6.4 H* (3.5-5.1) mmol/L Chloride 85 L 89 L (98-107) mmol/L Carbon Dioxide 19 L (22-30) mmol/L BUN 112 H* 72 H (9-20) mg/dL Creatinine 4.08 H 2.81 H (0.66-1.25) mg/dL Glucose 120 H 137 H (74-99) mg/dL POC Glucose (mg/dL) (75-99) mg/dL Magnesium (1.6-2.3) mg/dL Hep Bs Antibody Reactive H (Non-Reactive) Hep B Core Total Ab Reactive H (Non-Reactive) 09/20/19 09/20/19 09/20/19 Range/Units 04:21 04:21 12:04 RBC 3.21 L (4.30-5.90) m/uL Hgb 10.2 L (13.0-17.5) gm/dL Hct 30.3 L (39.0-53.0) % APTT (22.0-30.0) sec Sodium 125 L (137-145) mmol/L Potassium (3.5-5.1) mmol/L Chloride 91 L (98-107) mmol/L Carbon Dioxide (22-30) mmol/L BUN 69 H (9-20) mg/dL Creatinine 2.79 H (0.66-1.25) mg/dL Glucose 109 H (74-99) mg/dL POC Glucose (mg/dL) 114 H (75-99) mg/dL Magnesium 2.8 H (1.6-2.3) mg/dL Hep Bs Antibody (Non-Reactive) Hep B Core Total Ab (Non-Reactive)
[2019-09-20] MEDS ORDERED: ISOSORBIDE MONONITRATE ER 60 MG TAB.ER.24H PO SCH (13:26)
[2019-09-20] MEDS ORDERED: ISOSORBIDE MONONITRATE ER 30 MG TAB.ER.24H PO SCH (13:30)
--- NOTE | 2019-09-20 13:35 | P.PN ---
Subjective Progress Note Date: 09/20/19 (delayed charting seen at 9 am) Principal diagnosis: altered mentation Patient is a 74-year-old male with a past medical history of chronic kidney disease stage IV, bradycardia, A. fib, coronary artery disease with prior NC and stenting, and multiple other medical conditions who presented to the hospital secondary to increased fatigue and weakness. Of note this is due to this hospitalization during the month of August all which have been related to hyperkalemia, acute kidney injury, and the last one also had bradycardia with consideration for possible pacemaker. On arrival to the ER he was bradycardic with a heart rate of 38 and hypotensive with a blood pressure of 108/97. Urinalysis showed white blood cell count 11.1, hemoglobin 10.7, sodium 117, potassium 6.7, carbon dioxide 19, anion gap 14, BUN 110, creatinine 3.94. He was seen by cardiology who recommended treatment of his potassium levels for his bradycardia. He was subsequently started on a dopamine drip. He received calcium gluconate, dextrose, insulin, Lasix, fluids, and Kayexalate. He req uired a dopamine drip to be started for his bradycardia. He was admitted to the ICU. His repeat potassium level IV hours later with still elevated and had not had significant urine output. At that point in time he received repeat temporizing measures, nephrology was contacted who recommended placement of a hemodialysis catheter and urgent dialysis. He received a right IJ temporary dialysis catheter on 09/18 and underwent his first round of dialysis. This resulted in improvement in his potassium and sodium levels. His heart rate stabilized overnight on 09/18. Patient seen and examined at bedside. He is on his second round of dialysis. He is feeling much better than yesterday. He denies any chest pain, shortness of breath, nausea, vomiting, or lightheadedness and dizziness. He has no complaints at this time. Objective - Vital Signs Vital signs: Vital Signs Temp 97.7 F 09/20/19 11:48 Pulse 65 09/20/19 12:00 Resp 16 09/20/19 12:00 BP 182/72 09/20/19 12:00 Pulse Ox 97 09/20/19 12:00 Intake & Output 09/19/19 09/20/19 09/20/19 18:59 06:59 18:59 Intake Total 75 900 639.547 Output Total 30 1335 410 Balance 45 -435 229.547 Weight 120.701 kg 126.6 kg Intake: IV 75 900 450 Sodium Chloride 0.9% 1, 75 900 450 000 ml @ 75 mls/hr IV . [id number] STA Rx#:[id number] Intake, IV Titration 189.547 Amount DOPamine DRIP 800 mg In 189.547 Dextrose/Water 1 250ml. bag @ 4 MCG/KG/MIN 9.053 mls/hr IV .Q24H ONE Rx#: [id number] Output: Urine 30 835 410 Hemodialysis 500 Other: Voiding Method Indwelling Catheter Indwelling Catheter - Exam General: Ill-appearing, no distress, appears older than stated age Derm: warm, dry Head: atraumatic, normocephalic, symmetric Eyes: EOMI, no lid lag, anicteric sclera Mouth: no lip lesion, mucus membranes moist Cardiovascular: S1S2 reg, no murmur, positive posterior tibial pulse bilateral, Lungs: CTA bilateral, no rhonchi, no rales , no accessory muscle use Abdominal: soft, nontender to palpation, no guarding, no appreciable organomegaly Ext: no gross muscle atrophy, no edema, no contractures Neuro: CN II-XI grossly intact, no focal neuro deficits Psych: Alert, oriented, appropriate affect - Labs CBC & Chem 7: 09/20/19 04:21 09/20/19 04:21 Labs: Abnormal Lab Results - Last 24 Hours (Table) 09/19/19 09/19/19 09/19/19 Range/Units 15:32 16:35 16:35 RBC (4.30-5.90) m/uL Hgb (13.0-17.5) gm/dL Hct (39.0-53.0) % Sodium 117 L* (137-145) mmol/L Potassium 6.4 H* (3.5-5.1) mmol/L Chloride 85 L (98-107) mmol/L Carbon Dioxide 19 L (22-30) mmol/L BUN 112 H* (9-20) mg/dL Creatinine 4.08 H (0.66-1.25) mg/dL Glucose 120 H (74-99) mg/dL POC Glucose (mg/dL) 105 H (75-99) mg/dL Magnesium (1.6-2.3) mg/dL Hep Bs Antibody Reactive H (Non-Reactive) Hep B Core Total Ab Reactive H (Non-Reactive) 09/19/19 09/20/19 09/20/19 Range/Units 23:00 04:21 04:21 RBC 3.21 L (4.30-5.90) m/uL Hgb 10.2 L (13.0-17.5) gm/dL Hct 30.3 L (39.0-53.0) % Sodium 125 L 125 L (137-145) mmol/L Potassium (3.5-5.1) mmol/L Chloride 89 L 91 L (98-107) mmol/L Carbon Dioxide (22-30) mmol/L BUN 72 H 69 H (9-20) mg/dL Creatinine 2.81 H 2.79 H (0.66-1.25) mg/dL Glucose 137 H 109 H (74-99) mg/dL POC Glucose (mg/dL) (75-99) mg/dL Magnesium 2.8 H (1.6-2.3) mg/dL Hep Bs Antibody (Non-Reactive) Hep B Core Total Ab (Non-Reactive) 09/20/19 Range/Units 12:04 RBC (4.30-5.90) m/uL Hgb (13.0-17.5) gm/dL Hct (39.0-53.0) % Sodium (137-145) mmol/L Potassium (3.5-5.1) mmol/L Chloride (98-107) mmol/L Carbon Dioxide (22-30) mmol/L BUN (9-20) mg/dL Creatinine (0.66-1.25) mg/dL Glucose (74-99) mg/dL POC Glucose (mg/dL) 114 H (75-99) mg/dL Magnesium (1.6-2.3) mg/dL Hep Bs Antibody (Non-Reactive) Hep B Core Total Ab (Non-Reactive) Assessment and Plan Assessment: Acute kidney injury on chronic kidney disease stage IV, hyponatremia -King catheter inserted with 250 mL of urine, urine output has been increasing overnight on 09/18 -Received first round of dialysis 09/18, second around 09/19 -Avoid nephrotoxic agents -Strict I's and O's -Hold oral sodium bicarb -Repeat basic metabolic profile in a.m. Symptomatic bradycardia -wean dopamine drip, if HR stable then come off (was not started by nephro) -Cardiology recommendations -Telemetry -Lest echocardiogram ejection fraction 55-60%, moderate TR, severe pulmonary hypertension, severe left atrial dilatation, severe right ventricle enlargement, moderate LVH Anemia - likely due to CKD - iron studies appear normal -At baseline Atrial fibrillation -resume eliquis at 2.5 mg in AM -Not on any rate controlling medications so secondary to recent bradycardia -Cardiology recommendations Atherosclerotic coronary artery disease status post stenting -ASA, on Eliquis HTN -resume Hytrin and nifedipine -resume Imdur in AM -Follow blood pressures -d/c dopamine drip Significant peripheral vascular disease with chronic pain -Continue with oxycodone, Requip, and Ranexa Hyperkalemia, resolved Non-anion gap metabolic acidosis, resolved hypotension, resolved DVT prophylaxis: SCDs, eliquis Discussed with: patient, nephro, nursing Anticipated discharge date: 4-[address]: home with home health A total of 35 minutes was spent on the care of this complex patient more than 50% of the time was spent in counseling and care coordination.
--- NOTE | 2019-09-20 14:11 | CONS ---
CONSULTATION DATE OF SERVICE: 09/19/2019 This is a patient that I evaluated on 09/19/2019 in the emergency room. I am dictating for the time. CHIEF COMPLAINT: Jon Sandoval is a 74-year-old gentleman who regularly follows with a absorption operator at the [facility] in [place], has multiple and complex medical problems including morbid obesity, coronary artery disease, hypertension, paroxysmal atrial fibrillation who was brought into the emergency room with symptoms of low heart rate. The patient's predominant symptom is in the form of fatigue and generalized weakness and his symptoms have progressed over the past 2-3 days. He has had similar symptoms with bradycardia with hyperkalemia in the recent past. Pacemaker was contemplated at that time, but they did not have to because after the potassium resolved, his bradycardia resolved. I was called by Dr. Sohan Fernandez, the emergency room doctor urgently to the ER when the patient first arrived when we did not have any of the labs. The patient was in junctional bradycardia but was hemodynamically stable and I decided that the patient did not require any pacemaker at that time. Subsequently, his potassium came back elevated. He was admitted to the ICU with treatment for his hyperkalemia. PAST MEDICAL HISTORY: Significant for atrial fibrillation, coronary artery disease, hypertension, dyslipidemia, renal insufficiency and osteoarthritis. PAST SURGICAL HISTORY: Significant for coronary artery stenting, tonsillectomy, and he has a leg wound also. MEDICATIONS: Medications at home include Prozac, Ativan, Ranexa, Imdur, Neurontin, , Xarelto 15 mg daily, oxycodone, Requip, folic acid, and Miralax. ALLERGIES: THE PATIENT IS ALLERGIC TO AMLODIPINE, ATENOLOL, AND HYDROCHLOROTHIAZIDE. FAMILY HISTORY: Negative for premature coronary artery disease. SOCIAL HISTORY: Negative for current smoking, EtOH abuse, or drug abuse. REVIEW OF SYSTEMS: HEENT is unremarkable. Cardiac as described above. Respiratory as described above. GI negative. Genitourinary: Significant for renal insufficiency. Psychosocial: Significant for depression. Rest of the rest of the system review is not relevant. Constitutional: Significant for fatigue, tiredness and not feeling well. PHYSICAL EXAM: Heart rate was 30 to 40 beats per minute. Blood pressure was 110/50, respiratory rate is 18. There is no jugular venous distention. Chest exam reveals diminished air entry at the bases. Heart exam reveals first and second heart sounds. No gallop. Has a systolic murmur at the left lower sternal border. Abdomen is soft. Exam of extremities reveals bilateral 1+ edema. The patient had an echocardiogram in April of this year that showed an ejection fraction of 55-60 percent. Labs are pending at the time of my evaluation. ASSESSMENT: Junctional bradycardia probably related to hyperkalemia. I asked the ER physician to start giving the patient calcium gluconate and bicarb and insulin dextrose while we are waiting for the labs and I will decide on further course of action based on how he responds to these measures and what his labs come back as. MMODL / IJN: [id number] /
[2019-09-20] MEDS ORDERED: PHENAZOPYRIDINE 100 MG TAB PO STA (16:09)
[2019-09-20] MEDS ORDERED: CALCIUM CARBONATE 500 MG CHEWABLE PO PRN (16:51)
[2019-09-20] MEDS: PANTOPRAZOLE 40 MG TABLET PO SCH (17:22)
[2019-09-20] MEDS: GABAPENTIN 100 MG CAP PO SCH (19:58)
[2019-09-20] MEDS ORDERED: HALOPERIDOL LACTATE 5 MG/ML 1 ML VIAL IM STA (21:04)
--- NOTE | 2019-09-20 21:51 | XR ---
EXAMINATION TYPE: XR chest 1V portable DATE OF EXAM: 09/20/2019 COMPARISON: 09/19/2019 HISTORY: Difficulty breathing TECHNIQUE: FINDINGS: There is mild pulmonary interstitial edema. Heart appears slightly enlarged. Thoracic aorta is atheromatous. There are chest leads. There is right jugular catheter with tip in the superior edmar a cava. IMPRESSION: There is new mild pulmonary interstitial edema compared to yesterday that could be mild h eart failure.
[2019-09-20] MEDS ORDERED: FUROSEMIDE 10 MG/ML 10 ML VIAL IV STA (22:01)
[2019-09-20 22:15] LABS: ABG HCO3 25 mmol/L (21-25); ABG Oxygen Saturation 91.6 % (94-97); ABG PCO2 38 mmHg (35-45); ABG PH 7.43 (7.35-7.45); ABG PO2 61 mmHg (83-108); ABG TCO2 26 mmol/L (19-24); Allen Test Performed? Yes
[2019-09-20] MEDS: NIFEdipine XL 30 MG TAB.ER.24 PO SCH (22:22)
[2019-09-20] MEDS: FOLIC ACID 1 MG TAB PO SCH (22:25)
[2019-09-20] MEDS: HALOPERIDOL LACTATE 5 MG/ML 1 ML VIAL IM PRN (23:24)
[2019-09-20] MEDS: DOXAZOSIN 4 MG TAB PO SCH (23:57)
[2019-09-21] MEDS: GABAPENTIN 100 MG CAP PO SCH ×2 (00:05→09:26)
[2019-09-21] MEDS: LORazepam 1 MG TAB PO SCH (00:07)
[2019-09-21] MEDS: HALOPERIDOL LACTATE 5 MG/ML 1 ML VIAL IM PRN ×3 (03:30→11:12)
[2019-09-21 05:12] LABS: HCT 28.6 % (39.0-53.0); HGB 10.3 gm/dL (13.0-17.5); MCH 34.7 pg (25.0-35.0); MCHC 36.1 g/dL (31.0-37.0); Mean Platelet Volume 6.7; Platelet Count 347 k/uL (150-450); RBC 2.98 m/uL (4.30-5.90); RDW 14.2 % (11.5-15.5); WBC 19.5 k/uL (3.8-10.6)
[2019-09-21 05:24] LABS: Albumin 3.4 g/dL (3.5-5.0); Calcium 8.5 mg/dL (8.4-10.2); Potassium 3.6 mmol/L (3.5-5.1); Total Protein 6.6 g/dL (6.3-8.2)
--- NOTE | 2019-09-21 06:54 | XR ---
EXAMINATION TYPE: XR chest 1V portable DATE OF EXAM: 09/21/2019 HISTORY: SOB . REFERENCE: Previous study dated 09/20/2019. FINDINGS: Unfortunately, the patient's chin projects over the chest. Right internal jugular catheter is in place. Its tip is in the SVC. The heart is enlarged. There is bibasilar airspace disease. I suspect a left effusion. There is subtl e alveolar airspace disease. IMPRESSION: FINDINGS MOST CONSISTENT WITH MILD HEART FAILURE.
[2019-09-21 08:20] LABS: Appearance,Urine Cloudy (Clear); Bacteria,Urine Rare /hpf; Bilirubin,Urine Negative (Negative); Blood,Urine Small (Negative); Color,Urine Dark Yellow; Glucose,Urine (UA) Negative (Negative); Hyaline Casts,Urine 3 /lpf (0-2); Ketones,Urine Negative (Negative); Leukocyte Esterase,Urine Large (Negative); Mucus,Urine Occasional /hpf; Nitrite,Urine Negative (Negative); PH, Urine 5.5 (5.0-8.0); Protein,Urine 1+ (Negative); RBC,Urine 25 /hpf (0-5); Specific Gravity,Urine 1.012 (1.001-1.035); Squamous Epithelial Cell,Urine <1 /hpf (0-4); Urobilinogen,Urine <2.0 mg/dL (<2.0); WBC,Urine 27 /hpf (0-5)
[2019-09-21] MEDS ORDERED: POTASSIUM CHLORIDE ER 20 MEQ TAB.ER PO STA (08:40)
--- NOTE | 2019-09-21 08:48 | P.PN ---
Subjective Progress Note Date: 09/21/19 Principal diagnosis: This is a 74-year-old male seen in consultation because of acute kidney injury and chronic kidney disease. Came in because of shortness of breath fatigue and weakness for the last 2 or 3 days. He was started on dopamine drip. On admission his creatinine was 3.94, sodium 117 potassium 6.7, bicarb 19 and chloride 84 He has been admitted here in the last few weeks multiple times with generalized weakness and acute kidney injury and hyperkalemia congestive heart failure His most recent admission was on 09/10/2019, again with acute kidney injury, discharged on 09/13/2019 Since being admitted, he was on dopamine drip his pressure has come up to 120s to 130s. He was dialyzed Sunday night 09/19/2019 as well as on Sunday morning 09/20/2019. He remains somewhat tearful yesterday saiddifficult to get any history from. Subsequently I'm told by the nursing staff that he was very aggressive and confused. He has been sedated He is currently off of dopamine, vital signs are stable. And is making urine. Her last 24 hours urine output was 2074. His sodium is improved from 125 yesterday to 1:30 this morning after dialysis. Currently he is been sedated is drowsy. Objective - Vital Signs Vital signs: Vital Signs Temp 99.9 F H 09/21/19 08:00 Pulse 70 09/21/19 08:00 Resp 14 09/21/19 08:00 BP 127/57 09/21/19 08:00 Pulse Ox 96 09/21/19 08:00 Intake & Output 09/20/19 09/21/19 09/21/19 18:59 06:59 18:59 Intake Total 979.547 0 Output Total 805 1270 105 Balance 174.547 -1270 -105 Weight 124.4 kg Intake: IV 790 0 Sodium Chloride 0.9% 1, 790 0 000 ml @ 75 mls/hr IV . [id number] STA Rx#:[id number] Intake, IV Titration 189.547 Amount DOPamine DRIP 800 mg In 189.547 Dextrose/Water 1 250ml. bag @ 4 MCG/KG/MIN 9.053 mls/hr IV .Q24H ONE Rx#: [id number] Output: Urine 805 1270 105 Other: Voiding Method Indwelling Catheter Indwelling Catheter On examination drowsy sedated. On Ventimask No JVP is noted neck is supple no facial asymmetry noted Lungs are clear to auscultation less than optimal air entry. Chest x-ray shows left basilar atelectasis or effusion with possible congestive heart failure changes. Heart sounds are unremarkable somewhat distant normal sinus rhythm Abdomen is somewhat protuberant. Extremity exam was minimal edema Neurologically as mentioned about his been stated and is on Ventimask - Labs CBC & Chem 7: 09/21/19 04:30 09/21/19 04:30 Labs: Abnormal Lab Results - Last 24 Hours (Table) 09/20/19 09/20/19 09/21/19 Range/Units 12:04 22:12 04:30 WBC 19.5 H (3.8-10.6) k/uL RBC 2.98 L (4.30-5.90) m/uL Hgb 10.3 L (13.0-17.5) gm/dL Hct 28.6 L (39.0-53.0) % ABG pO2 61 L (83-108) mmHg ABG Total CO2 26 H (19-24) mmol/L ABG O2 Saturation 91.6 L (94-97) % Sodium (137-145) mmol/L Chloride (98-107) mmol/L BUN (9-20) mg/dL Creatinine (0.66-1.25) mg/dL Glucose (74-99) mg/dL POC Glucose (mg/dL) 114 H (75-99) mg/dL Albumin (3.5-5.0) g/dL Urine Protein (Negative) Urine Blood (Negative) Ur Leukocyte Esterase (Negative) Urine RBC (0-5) /hpf Urine WBC (0-5) /hpf Urine Bacteria (None) /hpf Hyaline Casts (0-2) /lpf Urine Mucus (None) /hpf 09/21/19 09/21/19 Range/Units 04:30 07:45 WBC (3.8-10.6) k/uL RBC (4.30-5.90) m/uL Hgb (13.0-17.5) gm/dL Hct (39.0-53.0) % ABG pO2 (83-108) mmHg ABG Total CO2 (19-24) mmol/L ABG O2 Saturation (94-97) % Sodium 130 L (137-145) mmol/L Chloride 94 L (98-107) mmol/L BUN 39 H (9-20) mg/dL Creatinine 2.14 H (0.66-1.25) mg/dL Glucose 137 H (74-99) mg/dL POC Glucose (mg/dL) (75-99) mg/dL Albumin 3.4 L (3.5-5.0) g/dL Urine Protein 1+ H (Negative) Urine Blood Small H (Negative) Ur Leukocyte Esterase Large H (Negative) Urine RBC 25 H (0-5) /hpf Urine WBC 27 H (0-5) /hpf Urine Bacteria Rare H (None) /hpf Hyaline Casts 3 H (0-2) /lpf Urine Mucus Occasional H (None) /hpf Assessment and Plan Assessment: Impression 1. Acute kidney injury, secondary to congestive heart failure, cardiorenal syndrome. Associated with change in mental status and poor appetite, recurrent admissions recently with about the same problem. Patient was dialyzed 2 days in a row day before yesterday and yesterday. He has a Vijay catheter in the right IJ. He is making fair amount of urine. His labs are not suggestive of any uremic explanation for his mental status, h yponatremia may have contributed to it. 2. Chronic kidney disease stage III, secondary to nephrosclerosis. Baseline creatinine is 2.5. 3. Congestive heart failure improved. off dopamine drip. on Ventimask 4. Anemia of chronic kidney disease hemoglobin is 10.3. Iron saturations 25% 5. Mild degree of non-gap acidosis from acute kidney injury resolved. 6. Hyponatremia secondary acute kidney injury and excess free water Recommendation 1. we will diurese him with Lasix 80 every 12 hours IV. 2. Will Continue dialysis tomorrow unless labs are significantly better. 3. Monitor labs intake and output 4. Will give him KCl 20 mg equal and is every hour 2 as his potassium is expected to go along with aggressive diuresis 5. His sodium is expected to improve with diuresis and dialysis
[2019-09-21] MEDS: PANTOPRAZOLE 40 MG TABLET PO SCH (09:26)
[2019-09-21] MEDS: FLUoxetine HCL 20 MG CAP PO SCH (09:26)
[2019-09-21] MEDS: ASPIRIN 81 MG PO SCH (09:26)
[2019-09-21] MEDS: ISOSORBIDE MONONITRATE ER 30 MG TAB.ER.24H PO SCH (09:29)
[2019-09-21] MEDS: hydrALAZINE HCL 50 MG TAB PO SCH ×3 (09:29→21:24)
[2019-09-21] MEDS: FUROSEMIDE 10 MG/ML 10 ML VIAL IV SCH ×2 (09:33→20:30)
[2019-09-21] MEDS: polyethylene glycoL 3350 17 GM POWD.PACK PO SCH (09:42)
[2019-09-21] MEDS: RANOLAZINE 500 MG TAB.ER.12H PO SCH ×3 (09:43→21:24)
[2019-09-21] MEDS ORDERED: AZITHROMYCIN 500 MG TAB PO SCH (10:00)
--- NOTE | 2019-09-21 10:06 | P.PN ---
Subjective Progress Note Date: 09/21/19 Principal diagnosis: altered mentation Patient is a 74-year-old male with a past medical history of chronic kidney disease stage IV, bradycardia, A. fib, coronary artery disease with prior GA and stenting, and multiple other medical conditions who presented to the hospital secondary to increased fatigue and weakness. Of note this is due to this hospitalization during the month of August all which have been related to hyperkalemia, acute kidney injury, and the last one also had bradycardia with consideration for possible pacemaker. On arrival to the ER he was bradycardic with a heart rate of 38 and hypotensive with a blood pressure of 108/97. Urinalysis showed white blood cell count 11.1, hemoglobin 10.7, sodium 117, potassium 6.7, carbon dioxide 19, anion gap 14, BUN 110, creatinine 3.94. He was seen by cardiology who recommended treatment of his potassium levels for his bradycardia. He was subsequently started on a dopamine drip. He received calcium gluconate, dextrose, insulin, Lasix, fluids, and Kayexalate. He required a dopamine drip to be started for his bradycardia. He was admitted to the ICU. His repeat potassium level IV hours later with still elevated and had not had significant urine output. At that point in time he received repeat temporizing measures, nephrology was contacted who recommended placement of a hemodialysis catheter and urgent dialysis. He received a right IJ temporary dialysis catheter on 09/18 and underwent his first round of dialysis. This resulted in improvement in his potassium and sodium levels. His heart rate stabilized overnight on 09/18. Repeat HD on 09/19. He did develop worsening confusion on 09/19 after his blood pressure increased. I d/w his stopping ativan. However, she did not want to try this at the time as he has a hx of withdrawal symptoms when this was stopped in the past. He had increasing agitation overnight on 09/20 requiring haldol. He was noted to have fevers and increased WBC on the morning of 09/21, UA checked and unremarkable, CXR with left sided infiltrate that could be related to fluid overload VS PNA and increasing O2 requirements noted. He was started on rocephin and doxy. Due to his confusion prozac, gabapentin, and ativan were held. Patient seen and examined at bedside. He recongnized me as his doctor, but appears confused. He denies chest pain, reports mild shortness of breath, no nausea, no leg pain Objective - Vital Signs Vital signs: Vital Signs Temp 99.9 F H 09/21/19 08:00 Pulse 70 09/21/19 10:00 Resp 21 09/21/19 10:00 BP 138/66 09/21/19 10:00 Pulse Ox 97 09/21/19 10:00 Intake & Output 09/20/19 09/21/19 09/21/19 18:59 06:59 18:59 Intake Total 979.547 0 Output Total 805 1270 225 Balance 174.547 -1270 -225 Weight 124.4 kg Intake: IV 790 0 Sodium Chloride 0.9% 1, 790 0 000 ml @ 75 mls/hr IV . [id number] STA Rx#:[id number] Intake, IV Titration 189.547 Amount DOPamine DRIP 800 mg In 189.547 Dextrose/Water 1 250ml. bag @ 4 MCG/KG/MIN 9.053 mls/hr IV .Q24H ONE Rx#: [id number] Output: Urine 805 1270 225 Other: Voiding Method Indwelling Catheter Indwelling Catheter Indwelling Catheter - Exam General: Ill-appearing, no distress, appears older than stated age Derm: warm, dry Head: atraumatic, normocephalic, symmetric Eyes: EOMI, no lid lag, anicteric sclera Mouth: no lip lesion, mucus membranes moist Cardiovascular: S1S2 reg, no murmur, positive posterior tibial pulse bilateral, Lungs: CTA bilateral, no rhonchi, no rales , no accessory muscle use Abdominal: soft, nontender to palpation, no guarding, no appreciable organomegaly Ext: no gross muscle atrophy, no edema, no contractures Neuro: CN II-XI grossly intact, no focal neuro deficits Psych: awake, alert to self, confused and impulsive - Labs CBC & Chem 7: 09/21/19 04:30 09/21/19 04:30 Labs: Abnormal Lab Results - Last 24 Hours (Table) 09/20/19 09/20/19 09/21/19 Range/Units 12:04 22:12 04:30 WBC 19.5 H (3.8-10.6) k/uL RBC 2.98 L (4.30-5.90) m/uL Hgb 10.3 L (13.0-17.5) gm/dL Hct 28.6 L (39.0-53.0) % ABG pO2 61 L (83-108) mmHg ABG Total CO2 26 H (19-24) mmol/L ABG O2 Saturation 91.6 L (94-97) % Sodium (137-145) mmol/L Chloride (98-107) mmol/L BUN (9-20) mg/dL Creatinine (0.66-1.25) mg/dL Glucose (74-99) mg/dL POC Glucose (mg/dL) 114 H (75-99) mg/dL Albumin (3.5-5.0) g/dL Urine Protein (Negative) Urine Blood (Negative) Ur Leukocyte Esterase (Negative) Urine RBC (0-5) /hpf Urine WBC (0-5) /hpf Urine Bacteria (None) /hpf Hyaline Casts (0-2) /lpf Urine Mucus (None) /hpf 09/21/19 09/21/19 Range/Units 04:30 07:45 WBC (3.8-10.6) k/uL RBC (4.30-5.90) m/uL Hgb (13.0-17.5) gm/dL Hct (39.0-53.0) % ABG pO2 (83-108) mmHg ABG Total CO2 (19-24) mmol/L ABG O2 Saturation (94-97) % Sodium 130 L (137-145) mmol/L Chloride 94 L (98-107) mmol/L BUN 39 H (9-20) mg/dL Creatinine 2.14 H (0.66-1.25) mg/dL Glucose 137 H (74-99) mg/dL POC Glucose (mg/dL) (75-99) mg/dL Albumin 3.4 L (3.5-5.0) g/dL Urine Protein 1+ H (Negative) Urine Blood Small H (Negative) Ur Leukocyte Esterase Large H (Negative) Urine RBC 25 H (0-5) /hpf Urine WBC 27 H (0-5) /hpf Urine Bacteria Rare H (None) /hpf Hyaline Casts 3 H (0-2) /lpf Urine Mucus Occasional H (None) /hpf Assessment and Plan Assessment: Acute kidney injury on chronic kidney disease stage IV, hyponatremia -King catheter inserted with 250 mL of urine, urine output good -Received first round of dialysis 09/18, second around 09/19 -Started on Lasix -Avoid nephrotoxic agents -Strict I's and O's -Hold oral sodium bicarb -Repeat basic metabolic profile in a.m. - nephrology recs Acute toxic metabolic encephalopathy - hold ativan, gabapentin, and prozac - treatment of possible infection leukocytosis - probable PNA with increasing WBC and O2 requirements along with possible left sided infiltrate - rocephin and doxy - repeat CXR in AM - UA negative - Nursing to preform skin check Anemia - likely due to CKD - iron studies appear normal -At baseline Atrial fibrillation -resume eliquis once we are sure no need for further catheter access -Not on any rate controlling medications so secondary to recent bradycardia -Cardiology recommendations Atherosclerotic coronary artery disease status post stenting -ASA, on Eliquis HTN -Hytrin, imdur and nifedipine - hydralazine -Imdur in AM -Follow blood pressures Significant peripheral vascular disease with chronic pain -Continue with oxycodone, Requip, and Ranexa Hyperkalemia, resolved Non-anion gap metabolic acidosis, resolved hypotension, resolved Symptomatic bradycardia, resolved moderate TR, severe pulmonary hypertension, severe left atrial dilatation, severe right ventricle enlargement, moderate LVH DVT prophylaxis: SCDs, heparin Discussed with: patient, nephro, nursing Anticipated discharge date: 4-[address]: home with home health A total of 35 minutes was spent on the care of this complex patient more than 50% of the time was spent in counseling and care coordination.
[2019-09-21] MEDS: DOXYCYCLINE 100 MG CAP PO SCH (10:31)
[2019-09-21] MEDS ORDERED: HALOPERIDOL LACTATE 5 MG/ML 1 ML VIAL IVP PRN (11:13)
--- NOTE | 2019-09-21 11:49 | P.PN ---
Subjective Progress Note Date: 09/21/19 History of present illness: This is a 74-year-old male patient of Dr. Griffin with past smoking history of atrial fibrillation, coronary artery disease, [place] and previous stent, chronic kidney disease stage III. Patient presented with complaints of feeling fatigued and weak. He was found to be in acute renal failure with an initial potassium of 6.7 and sodium of 117. Patient is status post dialysis catheter placement with Dr. Gonzalez and he is receiving his second treatment of hemodialysis this morning. We have been asked to see the patient regarding niki ycardia initially presenting in the 40s, heart rate now in the 60s. Patient is not on any beta blockers. He had a similar hospitalization 2 weeks ago and labetalol was discontinued during that hospitalization. Patient has also been started on dopamine by nephrology. Patient is denying any chest pain or shortness of breath. No nausea or vomiting, no abdominal pain, no diarrhea. Repeat lab work reveals sodium 125, BUN 4.6, chloride 91, CO2 23, BUN 69 and creatinine 2.79. Magnesium is 2.8. 09/20: The patient remains in the intensive care unit. He is off dopamine drip. Lasix at 80 mg IV every 12 hours. He is scheduled for hemodialysis tomorrow. Heart rate has been stable running in the 70s after correction of hyperkalemia. secured entrance monitor is sinus rhythm. Today's lab work reveals WBC 19.5, hemoglobin 10.3. Sodium 130, potassium 3.6, chloride 94, CO2 25, BUN 39 and creatinine 2.14. Patient has a sitter today at the bedside. He repeatedly saying that he wants to with increasing confusion requiring health safety and environment manager. Patient is denying any chest pain, back pain, shortness of breath.. Physical examination: Gen: This is a 74-year-old male. He is resting in the ICU, patient appears comfortable. pants maker at bedside. VS: Patient is afebrile, heart rate 75, blood pressure 139/65, pulse ox 97% on 3 L nasal cannula. secured entrance monitor sinus rhythm. HEENT: Head is atraumatic, normocephalic. Pupils equal, round. Sclerae is anicteric. NECK: Supple. No JVD. No lymphadenopathy. No thyromegaly. LUNGS: Clear to auscultation. No wheezes or rhonchi. No intercostal retractions. HEART: Regular rate and rhythm. No murmur. ABDOMEN: Soft. Bowel sounds are present. No masses. No tenderness. King cath eter draining clear ángel urine. EXTREMITIES: No pedal edema. No calf tenderness. Chronic dark skin changes, dorsalis pedis palpable bilaterally. NEUROLOGICAL: Patient is awake, alert and oriented to person. Assessment: Acute kidney injury Chronic kidney disease stage III Bradycardia secondary to hyperkalemia Hyperkalemia secondary to acute kidney injury Paroxysmal atrial fibrillation History of coronary artery disease status post stenting Hypertension Hyperlipidemia Plan: Continue HD per nephrology Continue cardiac monitoring closely Dopamine has been discontinued Continue Lasix 80 mg IV every 12 hours Monitor electrolytes Further recommendations to follow based upon clinical course Nurse practitioner note has been reviewed, I agree with documented findings and plan of care. Patient was seen and examined. Objective - Vital Signs Vital signs: Vital Signs Temp 99.1 F 09/21/19 11:00 Pulse 75 09/21/19 11:00 Resp 18 09/21/19 11:00 BP 139/65 09/21/19 11:00 Pulse Ox 97 09/21/19 11:00 Intake & Output 09/20/19 09/21/19 09/21/19 18:59 06:59 18:59 Intake Total 979.547 0 50 Output Total 805 1270 340 Balance 174.547 -1270 -290 Weight 124.4 kg Intake: IV 790 0 Sodium Chloride 0.9% 1, 790 0 000 ml @ 75 mls/hr IV . [id number] STA Rx#:[id number] Intake, IV Titration 189.547 50 Amount DOPamine DRIP 800 mg In 189.547 Dextrose/Water 1 250ml. bag @ 4 MCG/KG/MIN 9.053 mls/hr IV .Q24H ONE Rx#: [id number] cefTRIAXone 1 gm In 50 Sodium Chloride 0.9% 50 ml @ 100 mls/hr IVPB Q24HR [facility] Rx#:[id number] Output: Urine 805 1270 340 Other: Voiding Method Indwelling Catheter Indwelling Catheter Indwelling Catheter - Labs CBC & Chem 7: 09/21/19 04:30 09/21/19 04:30 Labs: Abnormal Lab Results - Last 24 Hours (Table) 09/20/19 09/20/19 09/21/19 Range/Units 12:04 22:12 04:30 WBC 19.5 H (3.8-10.6) k/uL RBC 2.98 L (4.30-5.90) m/uL Hgb 10.3 L (13.0-17.5) gm/dL Hct 28.6 L (39.0-53.0) % ABG pO2 61 L (83-108) mmHg ABG Total CO2 26 H (19-24) mmol/L ABG O2 Saturation 91.6 L (94-97) % Sodium (137-145) mmol/L Chloride (98-107) mmol/L BUN (9-20) mg/dL Creatinine (0.66-1.25) mg/dL Glucose (74-99) mg/dL POC Glucose (mg/dL) 114 H (75-99) mg/dL Albumin (3.5-5.0) g/dL Urine Protein (Negative) Urine Blood (Negative) Ur Leukocyte Esterase (Negative) Urine RBC (0-5) /hpf Urine WBC (0-5) /hpf Urine Bacteria (None) /hpf Hyaline Casts (0-2) /lpf Urine Mucus (None) /hpf 09/21/19 09/21/19 Range/Units 04:30 07:45 WBC (3.8-10.6) k/uL RBC (4.30-5.90) m/uL Hgb (13.0-17.5) gm/dL Hct (39.0-53.0) % ABG pO2 (83-108) mmHg ABG Total CO2 (19-24) mmol/L ABG O2 Saturation (94-97) % Sodium 130 L (137-145) mmol/L Chloride 94 L (98-107) mmol/L BUN 39 H (9-20) mg/dL Creatinine 2.14 H (0.66-1.25) mg/dL Glucose 137 H (74-99) mg/dL POC Glucose (mg/dL) (75-99) mg/dL Albumin 3.4 L (3.5-5.0) g/dL Urine Protein 1+ H (Negative) Urine Blood Small H (Negative) Ur Leukocyte Esterase Large H (Negative) Urine RBC 25 H (0-5) /hpf Urine WBC 27 H (0-5) /hpf Urine Bacteria Rare H (None) /hpf Hyaline Casts 3 H (0-2) /lpf Urine Mucus Occasional H (None) /hpf
[2019-09-21 12:37] LABS: Glucose,Whole Blood 154 mg/dL (75-99)
--- NOTE | 2019-09-21 12:54 | ECHOF ---
Referral Reason:bradycardia MEASUREMENTS -------- HEIGHT: 172.7 cm WEIGHT: 126.6 kg BP: RVIDd: 3.2 cm (< 3.3) IVSd: 1.4 cm (0.6 - 1.1) LVIDd: 5.6 cm (3.9 - 5.3) LVPWd: 1.3 cm (0.6 - 1.1) IVSs: 1.7 cm LVIDs: 3.9 cm LVPWs: 1.7 cm LA Diam: 3.5 cm (2.7 - 3.8) Ao Diam: 3.4 cm (2.0 - 3.7) AV Cusp: 1.8 cm (1.5 - 2.6) LA Diam: 4.7 cm (2.7 - 3.8) MV EXCURSION: 20.824 mm (> 18.000) MV EF SLOPE: 59 mm/s (70 - 150) EPSS: 0.9 cm MV E Renny: 0.74 m/s MV DecT: 168 ms MV A Renny: 0.60 m/s MV E/A Ratio: 1.22 RAP: 5.00 mmHg RVSP: 12.23 mmHg FINDINGS -------- Sinus rhythm. Morbid Obesity This was a techncally difficult study with suboptimal views, , Lumason utilized for enhancement of im ages. The left ventricular size is normal. There is mild concentric left ventricular hypertrophy. Overa ll left ventricular systolic function is low-normal with, an EF between 50 - 55 %. The right ventricle is normal in size. The left atrial size is normal. The right atrial size is normal. There is mild aortic valve sclerosis. There is no evidence of aortic regurgitation. Mild mitral annular calcification present. Mild mitral regurgitation is present. No regurgitation noted There is mild pulmonary hypertension. The right ventricular systolic press ure, as measured by Doppler, is 12.23mmHg. The pulmonic valve was not well visualized. The aortic root size is normal. There is a small, generalized pericardial effusion present. CONCLUSIONS -------- 1. Morbid Obesity 2. This was a techncally difficult study with suboptimal views, , Lumason utilized for enhancement of images. 3. The left ventricular size is normal. 4. There is mild concentric left ventricular hypertrophy. 5. Overall left ventricular systolic function is low-normal with, an EF between 50 - 55 %. 6. The right ventricle is normal in size. 7. The left atrial size is normal. 8. The right atrial size is normal. 9. There is mild aortic valve sclerosis. 10. Mild mitral annular calcification present. 11. Mild mitral regurgitation is present. 12. No regurgitation noted 13. There is mild pulmonary hypertension. 14. The right ventricular systolic pressure, as measured by Doppler, is 12.23mmHg. 15. The pulmonic valve was not well visualized. 16. There is a small, generalized pericardial effusion present. CORE PLACER: Kristen Andrews RDCS
[2019-09-21] MEDS: QUEtiapine 25 MG TAB PO SCH ×2 (13:33→20:34)
--- NOTE | 2019-09-21 14:12 | PN ---
PROGRESS NOTE PULMONARY/CRITICAL CARE PROGRESS NOTE: DATE OF SERVICE: 09/21/2019 This is a 74-year-old gentleman, well known to our service. He was just recently in the hospital for similar presentation of fatigue and weakness. He was apparently sent initially to the emergency room because of an abnormal laboratory value including an elevated potassium. He apparently had not been feeling well for 2 or 3 days. His potassium was very high and he also had associated bradycardia. At one point, pacemaker placement was anticipated but was never completed. Currently, he is doing better. He did have dialysis yesterday. He remains on 50% Venturi mask. He is not receiving any IV fluids. He apparently is scheduled to have dialysis on September 21 as well. Also, because of nocturnal agitation and confusion, he was given Haldol last night. Ativan was discontinued. Currently, we also had a talk with his . The patient would not have wanted to be on life support. The patient was made a DO NOT RESUSCITATE after a long discussion with his . In addition, initially because of the bradycardia associated with hyperkalemia, he was on a dopamine drip but that has been weaned off. PHYSICAL EXAMINATION: VITAL SIGNS: Current vital signs are reviewed. Temperature is 99 degrees, heart rate 67, respiratory rate 18, blood pressure 144/63, mean 90, 4 L saturations mid 90s. HEENT examination is grossly unremarkable. When we saw him in the morning, he was on a Venturi mask. NECK: Supple. Full range of motion. No adenopathy or thyromegaly. Neck veins are flat. CARDIOVASCULAR: Examination reveals heart rate in the mid to high 60s. S1, S2 normal. Heart sounds are distant. No clear-cut murmur noted. LUNGS: Reveal a few scattered rhonchi and crackles. Breath sounds equal. No wheezes. ABDOMEN: Soft. Bowel sounds are not noted. EXTREMITIES are intact. SKIN: Reveals some chronic venous stasis changes in the lower extremities. He has hyperpigmentation. NEUROLOGIC: Examination is difficult to assess because he is lethargic anyway, but he does arouse and answer questions appropriately. He was in the room listening to the conversation that I had with his . LAB DATA: Includes a white count 19.5, hemoglobin 10.3, hematocrit 28.6, platelet count 347,000. A blood gas was apparently done last night showing a pO2 of 61, a pCO2 of 38 pH is 7.43. That was on 50% FiO2. Sodium 130, potassium 3.6, chloride 94, CO2 is 25, anion gap 11. BUN and creatinine were 39 and 2.14. The urine may be consistent with a urinary tract infection. Current microbiology is negative. The most recent chest x-ray done today, September 20, shows a pattern consistent with CHF/heart failure. CURRENT MEDICATIONS: Reviewed. The patient is on Tylenol, aspirin, ceftriaxone, Cardura, doxycycline, folic acid, Lasix, Haldol p.r.n., subcu heparin, hydralazine, [place], Imdur, Narcan, Procardia, nitroglycerin, Zofran, Protonix, polyethylene glycol, Ranexa, and Requip. ASSESSMENT: 1. Hyperkalemia with bradycardia, initially requiring dopamine infusion, much improved. 2. Hyponatremia. 3. Acute on chronic kidney disease, status post hemodialysis. 4. History of atrial fibrillation. 5. Coronary artery disease with previous stent placement. 6. Angina pectoris. 7. Congestive heart failure. 8. Hyperlipidemia. 9. Hypertension. 10.Myocardial infarction. 11.Degenerative joint disease. 12.Chronic back pain. PLAN: The Ativan was discontinued. The patient's dopamine had been weaned off. He will not get dialysis today. Likely dialysis tomorrow according to the Nephrology. Currently, the patient seems to be doing reasonably well. He is a bit lethargic and sleepy. I did have a long conversation with his , Mayra. The patient was made a DNR as per her recommendation. Additional recommendations and suggestions are forthcoming. Prognosis is guarded. Medications are reviewed. MMODL / IJN: [id number] /
[2019-09-21] MEDS: HEPARIN SODIUM,PORCINE 5,000 UNIT/ML 1 ML VIAL SQ SCH (17:00)
[2019-09-21] MEDS: HYDROcodone/APAP 5-325MG 1 EACH TAB PO PRN ×2 (17:02→21:24)
[2019-09-21] MEDS: NIFEdipine XL 30 MG TAB.ER.24 PO SCH (20:35)
[2019-09-21] MEDS: FOLIC ACID 1 MG TAB PO SCH (21:24)
[2019-09-22] MEDS: DOXAZOSIN 4 MG TAB PO SCH (00:19)
[2019-09-22] MEDS: ACETAMINOPHEN TAB 325 MG TAB PO PRN (00:19)
[2019-09-22] MEDS: HEPARIN SODIUM,PORCINE 5,000 UNIT/ML 1 ML VIAL SQ SCH (00:20)
[2019-09-22] MEDS: HYDROcodone/APAP 5-325MG 1 EACH TAB PO PRN ×3 (01:41→17:52)
[2019-09-22 05:35] LABS: Basophils % (A) 0 %; Eosinophils # (A) 0.2 k/uL (0-0.7); Eosinophils % (A) 1 %; HCT 29.3 % (39.0-53.0); HGB 9.5 gm/dL (13.0-17.5); Lymphocytes # (A) 0.5 k/uL (1.0-4.8); Lymphocytes % (A) 3 %; MCH 31.3 pg (25.0-35.0); MCHC 32.4 g/dL (31.0-37.0); MCV 96.6 fL (80.0-100.0); Monocytes # (A) 0.6 k/uL (0-1.0); Monocytes % (A) 4 %; Neutrophils % (A) 90 %; Platelet Count 337 k/uL (150-450); RBC 3.03 m/uL (4.30-5.90); RDW 14.3 % (11.5-15.5); WBC 14.5 k/uL (3.8-10.6)
[2019-09-22 05:43] LABS: Potassium 3.5 mmol/L (3.5-5.1)
[2019-09-22 05:44] LABS: Calcium 8.7 mg/dL (8.4-10.2)
--- NOTE | 2019-09-22 07:18 | P.PN ---
Subjective Progress Note Date: 09/22/19 Principal diagnosis: Cardiac arrhythmia/complete heart block This is a 74-year-old gentleman with a past medical history significant for coronary artery disease, paroxysmal atrial fibrillation, as well as chronic kidney disease was admitted to the hospital with symptoms of being tired and fatigu and weakness. He was found to be in complete heart block. Also he was found to be hyperkalemic and he was in acute on chronic renal failure. The complete heart block has resolved after the potassium was corrected. The patient was seen today. The patient seems to be confused and continues to have change in mental status. Hemodynamically he is stable. He is in atrial fibrillation with overall controlled heart rate. He is not on any AV brenna joaquín at this point and I would continue monitor the heart rate and restart him back on AV brenna joaquín agents if the heart rate at rest start going above 100 bpm. He was not on any AV brenna joaquín agents at home. Also he is anticoagulated. I'm going to decrease the dose of Eliquis to 2.5 mg by mouth twice a day giving that he is currently on dialysis. Objective - Vital Signs Vital signs: Vital Signs Temp 98 F 09/22/19 04:00 Pulse 84 09/22/19 04:00 Resp 29 H 09/22/19 04:00 BP 126/61 09/22/19 04:00 Pulse Ox 96 09/22/19 04:00 Intake & Output 09/21/19 09/22/19 09/22/19 18:59 06:59 18:59 Intake Total 50 200 Output Total 785 735 Balance -735 -535 Weight 123.3 kg Intake: Intake, IV Titration 50 Amount cefTRIAXone 1 gm In 50 Sodium Chloride 0.9% 50 ml @ 100 mls/hr IVPB Q24HR [facility] Rx#:[id number] Oral 200 Output: Urine 785 735 Other: Voiding Method Indwelling Catheter Indwelling Catheter - Constitutional General appearance: Present: no acute distress - Respiratory Respiratory: bilateral: diminished - Cardiovascular Rhythm: irregularly irregular Heart sounds: normal: S1, S2 - Labs CBC & Chem 7: 09/22/19 05:16 09/22/19 05:16 Labs: Abnormal Lab Results - Last 24 Hours (Table) 09/21/19 09/21/19 09/22/19 Range/Units 07:45 12:36 05:16 WBC 14.5 H (3.8-10.6) k/uL RBC 3.03 L (4.30-5.90) m/uL Hgb 9.5 L (13.0-17.5) gm/dL Hct 29.3 L (39.0-53.0) % Neutrophils # 13.0 H (1.3-7.7) k/uL Lymphocytes # 0.5 L (1.0-4.8) k/uL Sodium (137-145) mmol/L BUN (9-20) mg/dL Creatinine (0.66-1.25) mg/dL Glucose (74-99) mg/dL POC Glucose (mg/dL) 154 H (75-99) mg/dL Urine Protein 1+ H (Negative) Urine Blood Small H (Negative) Ur Leukocyte Esterase Large H (Negative) Urine RBC 25 H (0-5) /hpf Urine WBC 27 H (0-5) /hpf Urine Bacteria Rare H (None) /hpf Hyaline Casts 3 H (0-2) /lpf Urine Mucus Occasional H (None) /hpf 09/22/19 Range/Units 05:16 WBC (3.8-10.6) k/uL RBC (4.30-5.90) m/uL Hgb (13.0-17.5) gm/dL Hct (39.0-53.0) % Neutrophils # (1.3-7.7) k/uL Lymphocytes # (1.0-4.8) k/uL Sodium 135 L (137-145) mmol/L BUN 44 H (9-20) mg/dL Creatinine 2.43 H (0.66-1.25) mg/dL Glucose 125 H (74-99) mg/dL POC Glucose (mg/dL) (75-99) mg/dL Urine Protein (Negative) Urine Blood (Negative) Ur Leukocyte Esterase (Negative) Urine RBC (0-5) /hpf Urine WBC (0-5) /hpf Urine Bacteria (None) /hpf Hyaline Casts (0-2) /lpf Urine Mucus (None) /hpf Microbiology - Last 24 Hours (Table) 09/21/19 07:45 Urine Culture - Preliminary Urine,Voided Assessment and Plan Assessment: Assessment #1 acute on chronic renal failure #2 hyperkalemia which has resolved #3 complete heart block which has resolved #4 paroxysmal atrial fibrillation #5 coronary artery disease Plan #1 continue the current medical regimen #2 decrease the dose of Eliquis to 2.5 mg by mouth twice a day #3 continue monitor the kidney function and electrolytes #4 follow-up with the patient
--- NOTE | 2019-09-22 08:06 | XR ---
EXAMINATION TYPE: XR chest 1V portable DATE OF EXAM: 09/22/2019 HISTORY: Shortness of breath. COMPARISON: September 21, 2019 TECHNIQUE: Single view of the chest is submitted. FINDINGS: Demonstrated are scattered senescent parenchymal change. There is cardiomegaly with pulmonary venous congestion. Basilar infiltrates persist. Central venous l ine unchanged in position. Hilar and mediastinal structures are within normal limits. Degenerative changes are seen of the dorsal spine. IMPRESSION: 1. There is cardiomegaly with pulmonary venous congestion. Basilar infiltrates persist.
--- NOTE | 2019-09-22 08:16 | P.PN ---
Subjective Progress Note Date: 09/22/19 Principal diagnosis: altered mentation Patient is a 74-year-old male with a past medical history of chronic kidney disease stage IV, bradycardia, A. fib, coronary artery disease with prior OH and stenting, and multiple other medical conditions who presented to the hospital secondary to increased fatigue and weakness. Of note this is due to this hospitalization during the month of August all which have been related to hyperkalemia, acute kidney injury, and the last one also had bradycardia with consideration for possible pacemaker. On arrival to the ER he was bradycardic with a heart rate of 38 and hypotensive with a blood pressure of 108/97. Urinalysis showed white blood cell count 11.1, hemoglobin 10.7, sodium 117, potassium 6.7, carbon dioxide 19, anion gap 14, BUN 110, creatinine 3.94. He was seen by cardiology who recommended treatment of his potassium levels for his bradycardia. He was subsequently started on a dopamine drip. He received calcium gluconate, dextrose, insulin, Lasix, fluids, and Kayexalate. He required a dopamine drip to be started for his bradycardia. He was admitted to the ICU. His repeat potassium level IV hours later with still elevated and had not had significant urine output. At that point in time he received repeat temporizing measures, nephrology was contacted who recommended placement of a hemodialysis catheter and urgent dialysis. He received a right IJ temporary dialysis catheter on 09/18 and underwent his first round of dialysis. This resulted in improvement in his potassium and sodium levels. His heart rate stabilized overnight on 09/18. Repeat HD on 09/19. He did develop worsening confusion on 09/19 after his blood pressure increased. I d/w his stopping ativan. However, she did not want to try this at the time as he has a hx of withdrawal symptoms when this was stopped in the past. He had increasing agitation overnight on 09/20 requiring haldol. He was noted to have fevers and increased WBC on the morning of 09/21, UA checked and unremarkable, CXR with left sided infiltrate that could be related to fluid overload VS PNA and increasing O2 requirements noted. He was started on rocephin and doxy. Due to his confusion prozac, gabapentin, and ativan were held. He continued to have increased conf usion overnight on 09/21 and did have an episode of A fib. Patient seen and examined at bedside. Moaning in bed and not conversational at this time. Complaining of pain all over. Does not answer other questions. Objective - Vital Signs Vital signs: Vital Signs Temp 98 F 09/22/19 04:00 Pulse 84 09/22/19 04:00 Resp 29 H 09/22/19 04:00 BP 126/61 09/22/19 04:00 Pulse Ox 96 09/22/19 04:00 Intake & Output 09/21/19 09/22/19 09/22/19 18:59 06:59 18:59 Intake Total 50 200 Output Total 785 735 Balance -735 -535 Weight 123.3 kg Intake: Intake, IV Titration 50 Amount cefTRIAXone 1 gm In 50 Sodium Chloride 0.9% 50 ml @ 100 mls/hr IVPB Q24HR [facility] Rx#:[id number] Oral 200 Output: Urine 785 735 Other: Voiding Method Indwelling Catheter Indwelling Catheter - Exam General: Ill-appearing, mild distress, appears older than stated age Derm: warm, dry Head: atraumatic, normocephalic, symmetric Eyes: EOMI, no lid lag, anicteric sclera Mouth: no lip lesion, mucus membranes moist Cardiovascular: S1S2 reg, no murmur, positive posterior tibial pulse bilateral, Lungs: CTA bilateral, no rhonchi, no rales , no accessory muscle use Abdominal: soft, nontender to palpation, no guarding, no appreciable organomegaly Ext: no gross muscle atrophy, no edema, no contractures Neuro: CN II-XI grossly intact, no focal neuro deficits Psych: lethargic, moaning in bed - Labs CBC & Chem 7: 09/22/19 05:16 09/22/19 05:16 Labs: Abnormal Lab Results - Last 24 Hours (Table) 09/21/19 09/21/19 09/22/19 Range/Units 07:45 12:36 05:16 WBC 14.5 H (3.8-10.6) k/uL RBC 3.03 L (4.30-5.90) m/uL Hgb 9.5 L (13.0-17.5) gm/dL Hct 29.3 L (39.0-53.0) % Neutrophils # 13.0 H (1.3-7.7) k/uL Lymphocytes # 0.5 L (1.0-4.8) k/uL Sodium (137-145) mmol/L BUN (9-20) mg/dL Creatinine (0.66-1.25) mg/dL Glucose (74-99) mg/dL POC Glucose (mg/dL) 154 H (75-99) mg/dL Urine Protein 1+ H (Negative) Urine Blood Small H (Negative) Ur Leukocyte Esterase Large H (Negative) Urine RBC 25 H (0-5) /hpf Urine WBC 27 H (0-5) /hpf Urine Bacteria Rare H (None) /hpf Hyaline Casts 3 H (0-2) /lpf Urine Mucus Occasional H (None) /hpf 09/22/19 Range/Units 05:16 WBC (3.8-10.6) k/uL RBC (4.30-5.90) m/uL Hgb (13.0-17.5) gm/dL Hct (39.0-53.0) % Neutrophils # (1.3-7.7) k/uL Lymphocytes # (1.0-4.8) k/uL Sodium 135 L (137-145) mmol/L BUN 44 H (9-20) mg/dL Creatinine 2.43 H (0.66-1.25) mg/dL Glucose 125 H (74-99) mg/dL POC Glucose (mg/dL) (75-99) mg/dL Urine Protein (Negative) Urine Blood (Negative) Ur Leukocyte Esterase (Negative) Urine RBC (0-5) /hpf Urine WBC (0-5) /hpf Urine Bacteria (None) /hpf Hyaline Casts (0-2) /lpf Urine Mucus (None) /hpf Microbiology - Last 24 Hours (Table) 09/21/19 07:45 Urine Culture - Preliminary Urine,Voided Assessment and Plan Assessment: Acute kidney injury on chronic kidney disease stage IV, hyponatremia -King catheter inserted with 250 mL of urine, urine output good -Received first round of dialysis 09/18, second around 09/19 -Started on Lasix 09/20 -Avoid nephrotoxic agents -Strict I's and O's -Hold oral sodium bicarb -Repeat basic metabolic profile in a.m. - nephrology recs ? need for perm HD cath prior to resuming Eliquia Acute toxic metabolic encephalopathy - resume Ativan and gabapentin as maybe having withdrawals - CT head with no acute process - treatment of possible infection Leukocytosis - probable PNA with increasing WBC and O2 requirements along with possible left sided infiltrate - rocephin and doxy - repeat CXR in AM - UA negative Anemia - likely due to CKD - iron studies appear normal -At baseline Atrial fibrillation -resume eliquis once we are sure no need for further catheter access -Not on any rate controlling medications so secondary to recent bradycardia -Cardiology recommendations Atherosclerotic coronary artery disease status post stenting -ASA, on Eliquis HTN -Hytrin, imdur and nifedipine -hydralazine -Follow blood pressures Significant peripheral vascular disease with chronic pain -Continue with oxycodone, Requip, and Ranexa Hyperkalemia, resolved Non-anion gap metabolic acidosis, resolved hypotension, resolved Symptomatic bradycardia, resolved Moderate TR, severe pulmonary hypertension, severe left atrial dilatation, severe right ventricle enlargement, moderate LVH DVT prophylaxis: SCDs, heparin Discussed with: patient, nephro, nursing Anticipated discharge date: 4-[address]: home with home health VS SNF A total of 35 minutes was spent on the care of this complex patient more than 50% of the time was spent in counseling and care coordination.
[2019-09-22] MEDS: PANTOPRAZOLE 40 MG TABLET PO SCH (08:29)
[2019-09-22] MEDS: ASPIRIN 81 MG PO SCH (08:29)
[2019-09-22] MEDS: DOXYCYCLINE 100 MG CAP PO SCH (08:29)
[2019-09-22] MEDS: APIXABAN 2.5 MG TABLET PO SCH (08:29)
[2019-09-22] MEDS: GABAPENTIN 100 MG CAP PO SCH ×2 (08:30→20:25)
[2019-09-22] MEDS: polyethylene glycoL 3350 17 GM POWD.PACK PO SCH (08:30)
[2019-09-22] MEDS: hydrALAZINE HCL 50 MG TAB PO SCH ×3 (08:30→21:43)
[2019-09-22] MEDS ORDERED: APIXABAN 5 MG TAB PO SCH (09:00)
--- NOTE | 2019-09-22 09:12 | CT ---
EXAMINATION TYPE: CT brain wo con DATE OF EXAM: 09/22/2019 COMPARISON: 09/01/2019 HISTORY: Hyoerkalemia, Bradycardia CT DLP: 1260.[address] of the brain was performed. The ventricles, basal cisterns and sulci overlying the cerebral convexities demonstrate mild enlargem ent. There is no evidence for intracranial hemorrhage or sulcal effacement. There is decreased attenuation about the periventricular white matter and deep white matter of both c erebral hemispheres, compatible with chronic small vessel ischemia. Differential diagnosis does inclu de demyelination. No mass effects are seen.No midline shift. Osseous calvarium is intact. If symptoms persist consider MRI. IMPRESSION: 1. Age related atrophic and chronic small vessel ischemic change without acute intracranial process s een at this time.
[2019-09-22] MEDS: ISOSORBIDE MONONITRATE ER 30 MG TAB.ER.24H PO SCH (09:32)
[2019-09-22] MEDS: RANOLAZINE 500 MG TAB.ER.12H PO SCH ×2 (09:32→21:41)
[2019-09-22] MEDS: FUROSEMIDE 10 MG/ML 10 ML VIAL IV SCH ×2 (09:40→20:25)
[2019-09-22] MEDS: LORazepam 2 MG/ML INJ IV PRN (09:40)
[2019-09-22 12:11] LABS: Glucose,Whole Blood 106 mg/dL (75-99)
--- NOTE | 2019-09-22 12:56 | P.PN ---
Subjective Progress Note Date: 09/22/19 On 09/22/2019 and seeing this patient for a follow-up. The patient states that he is in pain. He is moaning since yesterday. He is unresponsive and he follows simple commands. He cannot hold a long conversation with him. Noted the patient has been chronically benzodiazepine dependent and he was taken Ativan 1 mg 3 times a day on outpatient basis for many years. This was discontinued by the medical team. He is a bit confused and restless in bed. He has a DNR/DNI CODE STATUS. His cardiac rhythm is sinus. His acute hyperkalemia has recovered. At the same time, the patient was started on hemodialysis and nephrology is on the case regarding his dialysis needs. The patient otherwise hasn't been having difficulties in oral intake. 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 He had increased agitation overnight and the patient was given a dose of Haldol. He has been also noted to have some fever and elevated white cell count. The chest x-ray showed some li mited infiltration/fluid/pneumonia and left lower lung area. The patient has no significant cough or sputum production. UA is negative. Objective - Vital Signs Vital signs: Vital Signs Temp 98.4 F 09/22/19 12:00 Pulse 75 09/22/19 12:00 Resp 20 09/22/19 12:00 BP 123/68 09/22/19 12:00 Pulse Ox 98 09/22/19 12:00 Intake & Output 09/21/19 09/22/19 09/22/19 18:59 06:59 18:59 Intake Total 50 200 Output Total 785 735 Balance -735 -535 Weight 123.3 kg Intake: Intake, IV Titration 50 Amount cefTRIAXone 1 gm In 50 Sodium Chloride 0.9% 50 ml @ 100 mls/hr IVPB Q24HR [facility] Rx#:[id number] Oral 200 Output: Urine 785 735 Other: Voiding Method Indwelling Catheter Indwelling Catheter - Exam General: Ill-appearing, mild distress, appears older than stated age, unable to hold a conversation. He is laying down in bed comfortably. He is however moaning all the time and whenever asked, he was stated that he has diffuse body aches and pains. Head exam was generally normal. There was no scleral icterus or corneal arcus. Mucous membranes were moist. Derm: warm, dry Eyes: EOMI, no lid lag, anicteric sclera Mouth: no lip lesion, mucus membranes moist Cardiovascular: S1S2 reg, no murmur, positive posterior tibial pulse bilateral, Lungs: CTA bilateral, no rhonchi, no rales , no accessory muscle use Abdominal: soft, nontender to palpation, no guarding, no appreciable organomegaly Ext: no gross muscle atrophy, no edema, no contractures Neuro: CN II-XI grossly intact, no focal neuro deficits Psych: lethargic, moaning in bed - Labs CBC & Chem 7: 09/22/19 05:16 09/22/19 05:16 Labs: Abnormal Lab Results - Last 24 Hours (Table) 09/22/19 09/22/19 09/22/19 Range/Units 05:16 05:16 12:09 WBC 14.5 H (3.8-10.6) k/uL RBC 3.03 L (4.30-5.90) m/uL Hgb 9.5 L (13.0-17.5) gm/dL Hct 29.3 L (39.0-53.0) % Neutrophils # 13.0 H (1.3-7.7) k/uL Lymphocytes # 0.5 L (1.0-4.8) k/uL Sodium 135 L (137-145) mmol/L BUN 44 H (9-20) mg/dL Creatinine 2.43 H (0.66-1.25) mg/dL Glucose 125 H (74-99) mg/dL POC Glucose (mg/dL) 106 H (75-99) mg/dL Microbiology - Last 24 Hours (Table) 09/21/19 07:45 Urine Culture - Preliminary Urine,Voided Assessment and Plan Plan: 1 acute on top of chronic kidney disease and the patient has stage IV chronic ki dney failure and the patient has had frequent hospitalization for acute hyperkalemia, symptomatic, and the patient was started hemodialysis and the patient had a temporary dialysis catheter. King cath is also in place and the patient is producing adequate amount of urine output while being on Lasix. Nephritis also on the case. No significant metabolic derangement and acute hyperkalemia has improved. 2 acute hyperkalemia, recovered 3 symptomatic bradycardia secondary to hyperkalemia, recovered 4 encephalopathy, likely metabolic in nature. Consider also the possibility of drug withdrawals. The patient has been taking benzodiazepines on a chronic basis 5 leukocytosis 6 chronic atrial fibrillation 7 coronary artery disease previous coronary stenting 8 peripheral vascular disease 9 chronic back pain 1110 hypertension 11 hyperlipidemia 12 DNR/DNI CODE STATUS Plan Restart Ativan as the patient has chronic benzodiazepine dependence and the patient was started on 0.5 mg twice a day, also restart gabapentin Continued IV Lasix Dialysis per nephrology CAT scan of the brain without contrast in view of his ongoing encephalopathy We'll continue to follow make further recommendations based on his progress.
--- NOTE | 2019-09-22 16:20 | PN ---
PROGRESS NOTE Patient is seen for followup for acute kidney injury, currently hemodialysis-dependent. Patient has had multiple admissions for volume overload and prerenal acute kidney injury. This time he was started on dialysis on admission. Today patient had his third treatment. He has been confused for the last couple of days. The patient has had fair urine output. We had about 1.5 L of ultrafiltration with hemodialysis today. On examination this morning, patient is confused. Blood pressure 123/68, heart rate 75 per minute. He is afebrile. EXAMINATION OF THE HEART: S1 and S2. EXAMINATION OF LUNGS: Decreased breath sounds at bases. ABDOMEN: Soft, non-tender, distended. Examination of lower extremities shows chronic skin changes. Chronic edema. Currently much decreased. COMPENSATION ADJUSTER exam shows patient is moving all 4 extremities, but he is confused. Labs show sodium of 135, potassium 3.5, BUN 44, serum creatinine 2.43, hemoglobin 9.5 g/dL. ASSESSMENT: 1. Chronic kidney disease, currently started on dialysis, mostly cardiorenal. Patient had vague uremic symptoms on admission. His mentation has not significantly improved yet. We will continue with outpatient dialysis for now. The patient will need a PermCath placed for outpatient dialysis. 2. Chronic kidney disease, stage 3B to 4, with baseline creatinine about 2.5, mostly cardiorenal. 3. Congestive heart failure, acute on top of chronic, mainly systolic, currently not in failure. 4. Anemia of chronic disease. 5. Hyponatremia associated with renal failure, currently improved. 6. Mental status changes. Brain CT was negative. Unlikely to be related to uremia, as patient has had three treatments with no significant change in his mentation. Rule out any new infection. 7. Atrial fibrillation, currently controlled, maintained on Eliquis, which is on hold; and this will be restarted once the PermCath is in. PLAN: Next dialysis on 09/24/2019. Continue with IV Lasix for now and proceed with PermCath placement. We can resume Eliquis after the PermCath is in. Discussed with social media designer to arrange for outpatient chair time. SANDY / LELIA: [phone] /
[2019-09-22] MEDS ORDERED: QUEtiapine 25 MG TAB PO SCH (21:00)
[2019-09-22] MEDS: NIFEdipine XL 30 MG TAB.ER.24 PO SCH (21:41)
[2019-09-22] MEDS: FOLIC ACID 1 MG TAB PO SCH (21:41)
[2019-09-23] MEDS: DOXAZOSIN 4 MG TAB PO SCH ×2 (00:16→23:18)
[2019-09-23] MEDS: HYDROcodone/APAP 5-325MG 1 EACH TAB PO PRN ×2 (00:29→04:19)
[2019-09-23] MEDS: LORazepam 2 MG/ML INJ IV PRN (04:19)
[2019-09-23 04:56] LABS: Basophils # (A) 0.1 k/uL (0-0.2); Basophils % (A) 0 %; Eosinophils # (A) 0.1 k/uL (0-0.7); Eosinophils % (A) 1 %; HCT 30.4 % (39.0-53.0); HGB 9.6 gm/dL (13.0-17.5); Lymphocytes # (A) 0.6 k/uL (1.0-4.8); Lymphocytes % (A) 4 %; MCH 30.9 pg (25.0-35.0); MCHC 31.7 g/dL (31.0-37.0); MCV 97.6 fL (80.0-100.0); Mean Platelet Volume 7.3; Monocytes # (A) 0.8 k/uL (0-1.0); Monocytes % (A) 6 %; Neutrophils # (A) 11.4 k/uL (1.3-7.7); Neutrophils % (A) 87 %; Platelet Count 349 k/uL (150-450); RBC 3.12 m/uL (4.30-5.90); RDW 14.4 % (11.5-15.5); WBC 13.2 k/uL (3.8-10.6)
[2019-09-23 05:13] LABS: Potassium 3.5 mmol/L (3.5-5.1)
[2019-09-23] MEDS: PANTOPRAZOLE 40 MG TABLET PO SCH (06:25)
--- NOTE | 2019-09-23 07:31 | P.PN ---
Subjective Progress Note Date: 09/23/19 Principal diagnosis: Cardiac arrhythmia/complete heart block This is a 74-year-old gentleman with a past medical history significant for coronary artery disease, paroxysmal atrial fibrillation, as well as chronic kidney disease was admitted to the hospital with symptoms of being tired and fatigu and weakness. He was found to be in complete heart block. Also he was found to be hyperkalemic and he was in acute on chronic renal failure. The complete heart block has resolved after the potassium was corrected. The patient was seen today, 09/23/2019. Clinically he is looking better. His mentation is much better than yesterday. Hemodynamically he continues to be stable. He is in atrial fibrillation was controlled heart rate. At this point he is not on any AV brenna joaquín agents. Yesterday I decreased the dose of Eliquis to 2.5 mg by mouth twice a day. We are holding the dose is morning because he is going to undergo a dialysis catheter. We'll continue following up with him. Objective - Vital Signs Vital signs: Vital Signs Temp 97.8 F 09/23/19 00:00 Pulse 87 09/23/19 04:00 Resp 20 09/23/19 04:00 BP 87/62 09/23/19 04:00 Pulse Ox 94 L 09/23/19 00:00 Intake & Output 09/22/19 09/23/19 09/23/19 18:59 06:59 18:59 Output Total 1400 485 Balance -1400 -485 Weight 124.2 kg Output: Urine 400 485 Hemodialysis 1000 Other: Voiding Method Indwelling Catheter Indwelling Catheter - Constitutional General appearance: Present: no acute distress - Respiratory Respiratory: bilateral: diminished - Cardiovascular Rhythm: irregularly irregular Heart sounds: normal: S1, S2 - Labs CBC & Chem 7: 09/23/19 04:01 09/23/19 04:01 Labs: Abnormal Lab Results - Last 24 Hours (Table) 09/22/19 09/23/19 09/23/19 Range/Units 12:09 04:01 04:01 WBC 13.2 H (3.8-10.6) k/uL RBC 3.12 L (4.30-5.90) m/uL Hgb 9.6 L (13.0-17.5) gm/dL Hct 30.4 L (39.0-53.0) % Neutrophils # 11.4 H (1.3-7.7) k/uL Lymphocytes # 0.6 L (1.0-4.8) k/uL Sodium 135 L (137-145) mmol/L BUN 35 H (9-20) mg/dL Creatinine 2.09 H (0.66-1.25) mg/dL Glucose 119 H (74-99) mg/dL POC Glucose (mg/dL) 106 H (75-99) mg/dL Microbiology - Last 24 Hours (Table) 09/21/19 07:45 Urine Culture - Preliminary Urine,Voided Group D Enterococcus Assessment and Plan Assessment: Assessment #1 acute on chronic renal failure #2 hyperkalemia which has resolved #3 complete heart block which has resolved #4 paroxysmal atrial fibrillation #5 coronary artery disease Plan #1 continue the current medical regimen #2 hold the dose of Eliquis this morning #3 continue monitor the kidney function and electrolytes #4 follow-up with the patient
--- NOTE | 2019-09-23 09:32 | XR ---
EXAMINATION TYPE: XR chest 1V portable DATE OF EXAM: 09/23/2019 COMPARISON: 09/22/2019 INDICATION: Follow-up previous abnormal chest TECHNIQUE: Single frontal view of the chest is obtained. FINDINGS: The heart size is mildly prominent. The pulmonary vasculature is prominent. Diffuse increased lung markings are present. This is slightly greater at the lung bases. There is summer houetting the left diaphragm. Catheter is present on the right with the tips in the distal superior vena cava region. IMPRESSION: 1. Volume overload. Some bibasilar atelectasis may be present. Small left pleural effusion is not exc luded.
[2019-09-23] MEDS: DOXYCYCLINE 100 MG CAP PO SCH (09:39)
[2019-09-23] MEDS: RANOLAZINE 500 MG TAB.ER.12H PO SCH ×2 (09:39→21:09)
[2019-09-23] MEDS: GABAPENTIN 100 MG CAP PO SCH ×2 (09:40→21:08)
[2019-09-23] MEDS: ASPIRIN 81 MG PO SCH (09:40)
[2019-09-23] MEDS: hydrALAZINE HCL 50 MG TAB PO SCH ×3 (09:40→21:08)
[2019-09-23] MEDS: polyethylene glycoL 3350 17 GM POWD.PACK PO SCH (09:40)
[2019-09-23] MEDS: FUROSEMIDE 10 MG/ML 10 ML VIAL IV SCH (09:40)
[2019-09-23] MEDS: LORazepam 1 MG TAB PO SCH ×2 (09:40→21:08)
[2019-09-23] MEDS: ISOSORBIDE MONONITRATE ER 30 MG TAB.ER.24H PO SCH (09:40)
[2019-09-23] MEDS ORDERED: LIDOCAINE 1% INJ 10MG/ML (20 ML MDV) ONE ×2 (12:23→12:58)
[2019-09-23] MEDS ORDERED: IV FLUID CONTINUATION 900 ML IV ONE (12:30)
--- NOTE | 2019-09-23 12:46 | P.PN ---
Subjective Progress Note Date: 09/23/19 On 09/23/2019, the patient is being seen for a follow-up. Neurologically much more alert and awake compared to yesterday. No moaning. He is able to communicate on today's evaluation. Note that she was started back on his benzodiazepine that was stopped abruptly and overnight she received Ativan 0.5 mg every 12 hours. He also underwent hemodialysis. He has a right IJ dialysis catheter and a total of 2 L was ultrafiltrate. The patient remains in atrial fibrillation. Rate is controlled. His cardiac output is about 2 by nasal cannula. Pulse ox 95%. He has enterococcus group D in his urine the patient remains on a combination of IV Rocephin and doxycycline for now. He is also on long-term and to coagulation with Eliquis. No other significant events otherwise for now. The chest x-ray showed volume overload and some bibasilar atelectatic changes small left-sided pleural effusion was also being considered. Objective - Vital Signs Vital signs: Vital Signs Temp 97.8 F 09/23/19 00:00 Pulse 87 09/23/19 04:00 Resp 20 09/23/19 08:00 BP 87/62 09/23/19 04:00 Pulse Ox 94 L 09/23/19 00:00 Intake & Output 09/22/19 09/23/19 09/23/19 18:59 06:59 18:59 Output Total 1400 485 Balance -1400 -485 Weight 124.2 kg Output: Urine 400 485 Hemodialysis 1000 Other: Voiding Method Indwelling Catheter Indwelling Catheter Indwelling Catheter - Exam General: Ill-appearing, mild distress, nonacute distress and the patient is much more alert and awake compared to yesterday and the patient is communicating and there is no agitation or restlessness on today's evaluation. Head exam was generally normal. There was no scleral icterus or corneal arcus. Mucous membranes were moist. Derm: warm, dry Eyes: EOMI, no lid lag, anicteric sclera Mouth: no lip lesion, mucus membranes moist Cardiovascular: S1S2 reg, no murmur, positive posterior tibial pulse bilateral, Lungs: CTA bilateral, no rhonchi, no rales , no accessory muscle use Abdominal: soft, nontender to palpation, no guarding, no appreciable organomegaly Ext: no gross muscle atrophy, no edema, no contractures Neuro: CN II-XI grossly intact, no focal neuro deficits - Labs CBC & Chem 7: 09/23/19 04:01 09/23/19 04:01 Labs: Abnormal Lab Results - Last 24 Hours (Table) 09/23/19 09/23/19 Range/Units 04:01 04:01 WBC 13.2 H (3.8-10.6) k/uL RBC 3.12 L (4.30-5.90) m/uL Hgb 9.6 L (13.0-17.5) gm/dL Hct 30.4 L (39.0-53.0) % Neutrophils # 11.4 H (1.3-7.7) k/uL Lymphocytes # 0.6 L (1.0-4.8) k/uL Sodium 135 L (137-145) mmol/L BUN 35 H (9-20) mg/dL Creatinine 2.09 H (0.66-1.25) mg/dL Glucose 119 H (74-99) mg/dL Microbiology - Last 24 Hours (Table) 09/21/19 07:45 Urine Culture - Preliminary Urine,Voided Group D Enterococcus Assessment and Plan Plan: 1 acute on top of chronic kidney disease and the patient has stage IV chronic kidney failure and the patient has had frequent hospitalization for acute hyperkalemia, symptomatic, and the patient was started hemodialysis and the patient had a temporary dialysis catheter. King cath is also in place and the patient is producing adequate amount of urine output while being on Lasix. The patient had a dialysis session yesterday and the patient had somewhat between 1 and 2 L of ultrafiltration. The patient is being seen by nephrology. The patient is also on IV Lasix with adequate urine output for now. 2 acute hyperkalemia, recovered 3 symptomatic bradycardia secondary to hyperkalemia, recovered 4 encephalopathy, significantly improved and the patient is much more awake and alert on today's evaluation. 5 leukocytosis, Stable 6 chronic atrial fibrillation, Rate is controlled and the patient on long-term articulation with Eliquis 7 coronary artery disease previous coronary stenting 8 peripheral vascular disease 9 chronic back pain 1110 hypertension 11 hyperlipidemia 12 DNR/DNI CODE STATUS 13 enterococcus in the urine and the patient is on IV Rocephin. This is an enterococcus group D. Plan Change the Ativan dose to 1 mg by mouth twice a day Continue gabapentin Continued IV Lasix Dialysis per nephrology Continued IV Rocephin Clinically much improved and the patient will be kept in ICU for 24 hours. CAT scan of the brain without contrast in view of his ongoing encephalopathy We'll continue to follow make further recommendations based on his progress.
[2019-09-23] MEDS ORDERED: ceFAZolin 3 GM in SODIUM CHLORIDE 0.9% 100 ML IVPB STA (12:48)
[2019-09-23] MEDS: MIDAZOLAM 2 MG/2 ML VIAL IV ONE ×2 (12:52→13:04)
[2019-09-23] MEDS ORDERED: LIDOCAINE 1% INJ 10MG/ML (20 ML MDV) SQ ONE ×2 (12:56→13:10)
[2019-09-23] MEDS ORDERED: HEPARIN SODIUM 1,000 UN/ML (10ML VL) ONE (13:02)
--- NOTE | 2019-09-23 13:13 | P.PN ---
Subjective Progress Note Date: 09/23/19 Principal diagnosis: altered mentation Patient is a 74-year-old male with a past medical history of chronic kidney disease stage IV, bradycardia, A. fib, coronary artery disease with prior PR and stenting, and multiple other medical conditions who presented to the hospital secondary to increased fatigue and weakness. Of note this is due to this hospitalization during the month of August all which have been related to hyperkalemia, acute kidney injury, and the last one also had bradycardia with consideration for possible pacemaker. On arrival to the ER he was bradycardic with a heart rate of 38 and hypotensive with a blood pressure of 108/97. Urinalysis showed white blood cell count 11.1, hemoglobin 10.7, sodium 117, potassium 6.7, carbon dioxide 19, anion gap 14, BUN 110, creatinine 3.94. He was seen by cardiology who recommended treatment of his potassium levels for his bradycardia. He was subsequently started on a dopamine drip. He received calcium gluconate, dextrose, insulin, Lasix, fluids, and Kayexalate. He required a dopamine drip to be started for his bradycardia. He was admitted to the ICU. His repeat potassium level IV hours later with still elevated and had not had significant urine output. At that point in time he received repeat temporizing measures, nephrology was contacted who recommended placement of a hemodialysis catheter and urgent dialysis. He received a right IJ temporary dialysis catheter on 09/18 and underwent his first round of dialysis. This resulted in improvement in his potassium and sodium levels. His heart rate stabilized overnight on 09/18. Repeat HD on 09/19. He did develop worsening confusion on 09/19 after his blood pressure increased. I d/w his stopping ativan. However, she did not want to try this at the time as he has a hx of withdrawal symptoms when this was stopped in the past. He had increasing agitation overnight on 09/20 requiring haldol. He was noted to have fevers and increased WBC on the morning of 09/21, UA checked and unremarkable, CXR with left sided infiltrate that could be related to fluid overload VS PNA and increasing O2 requirements noted. He was started on rocephin and doxy. Due to his confusion prozac, gabapentin, and ativan were held. He continued to have increased conf usion overnight on 09/21 and did have an episode of A fib. He was restarted on his ativan and gabapentin. He had improvement in his mentation and arrangement were made for permanent HD cath. Patient seen and examined at bedside. Awake and alert. Denies any chest pain, shortness of breath, nausea, or vomiting. He denies any pain in his legs. States he is feeling pretty well today. Objective - Vital Signs Vital signs: Vital Signs Temp 97.8 F 09/23/19 00:00 Pulse 87 09/23/19 04:00 Resp 20 09/23/19 08:00 BP 87/62 09/23/19 04:00 Pulse Ox 94 L 09/23/19 00:00 Intake & Output 09/22/19 09/23/19 09/23/19 18:59 06:59 18:59 Output Total 1400 485 Balance -1400 -485 Weight 124.2 kg Output: Urine 400 485 Hemodialysis 1000 Other: Voiding Method Indwelling Catheter Indwelling Catheter Indwelling Catheter - Exam General:non toxic, no distress, appears older than stated age Derm: puruple discoloration bilateral lower extremities iwth skin peeling, warm, dry Head: atraumatic, normocephalic, symmetric Eyes: EOMI, no lid lag, anicteric sclera Mouth: no lip lesion, mucus membranes moist Cardiovascular: S1S2 reg, no murmur, positive posterior tibial pulse bilateral, Lungs: CTA bilateral, no rhonchi, no rales , no accessory muscle use Abdominal: soft, nontender to palpation, no guarding, no appreciable organomegaly Ext: no gross muscle atrophy, no edema, no contractures Neuro: CN II-XI grossly intact, no focal neuro deficits Psych: lethargic, moaning in bed - Labs CBC & Chem 7: 09/23/19 04:01 09/23/19 04:01 Labs: Abnormal Lab Results - Last 24 Hours (Table) 09/23/19 09/23/19 Range/Units 04:01 04:01 WBC 13.2 H (3.8-10.6) k/uL RBC 3.12 L (4.30-5.90) m/uL Hgb 9.6 L (13.0-17.5) gm/dL Hct 30.4 L (39.0-53.0) % Neutrophils # 11.4 H (1.3-7.7) k/uL Lymphocytes # 0.6 L (1.0-4.8) k/uL Sodium 135 L (137-145) mmol/L BUN 35 H (9-20) mg/dL Creatinine 2.09 H (0.66-1.25) mg/dL Glucose 119 H (74-99) mg/dL Microbiology - Last 24 Hours (Table) 09/21/19 07:45 Urine Culture - Preliminary Urine,Voided Group D Enterococcus Assessment and Plan Assessment: Acute kidney injury on chronic kidney disease stage IV, hyponatremia -King catheter inserted with 250 mL of urine, urine output good -Received first round of dialysis 09/18, second around 09/19, next 09/21. -Started on Lasix 09/20 -Avoid nephrotoxic agents -Strict I's and O's -Hold oral sodium bicarb -Repeat basic metabolic profile in a.m. - nephrology recs: permacath Acute toxic metabolic encephalopathy, improving - Continue Ativan and gabapentin - CT head with no acute process - treatment of possible infection Leukocytosis - probable PNA with increasing WBC and O2 requirements along with possible left sided infiltrate - rocephin and doxy - repeat CXR in AM - UA negative Anemia - likely due to CKD - iron studies appear normal - At baseline Atrial fibrillation -resume eliquis in AM -Not on any rate controlling medications so secondary to recent bradycardia -Cardiology recommendations Atherosclerotic coronary artery disease status post stenting -ASA, on Eliquis to restart 09/23 HTN -Hytrin, imdur and nifedipine -hydralazine -Follow blood pressures Significant peripheral vascular disease with chronic pain -Continue with oxycodone, Requip, and Ranexa Hyperkalemia, resolved Non-anion gap metabolic acidosis, resolved hypotension, resolved Symptomatic bradycardia, resolved Moderate TR, severe pulmonary hypertension, severe left atrial dilatation, severe right ventricle enlargement, moderate LVH DVT prophylaxis: SCDs, heparin Discussed with: patient, case management, nursing Anticipated discharge date: 2-[address]: home with home health VS SNF A total of 25 minutes was spent on the care of this complex patient more than 50% of the time was spent in counseling and care coordination.
--- NOTE | 2019-09-23 14:29 | XR ---
EXAMINATION TYPE: XR chest 1V portable DATE OF EXAM: 09/23/2019 COMPARISON: Earlier exam INDICATION: Post HD catheter placement TECHNIQUE: Single frontal view of the chest is obtained. FINDINGS: The heart size is enlarged. The pulmonary vasculature is upper limits of normal. Minimal subsegmental atelectasis is likely present at the left base. This is improved from earlier in the day. There is placement of a double-lumen catheter on the right with the tips in the distal superior vena cava region. No pneumothorax is evident. IMPRESSION: 1. Improving subsegmental atelectasis left base. 2. Cardiomegaly. 3. No pneumothorax post line placement.
--- NOTE | 2019-09-23 16:16 | PN ---
PROGRESS NOTE Patient is seen for followup for acute kidney injury on top of chronic kidney disease, currently hemodialysis-dependent. Patient is scheduled for PermCath placement today. He will be scheduled for hemodialysis tomorrow. His mentation has improved significantly. Currently he is sitting up in a bedside chair. He is comfortable. On examination, blood pressure was 121/59, heart rate of 77 per minute. He is afebrile. EXAMINATION OF THE HEART: S1 and S2. EXAMINATION OF LUNGS: Decreased breath sounds at bases. ABDOMEN: Soft, non-tender. Examination of lower extremities shows chronic skin changes, chronic edema bilaterally. DRY CHAIN OFFBEARER exam is grossly intact. Patient is moving all 4 extremities. Labs show hemoglobin 9.6, sodium 135, potassium 3.5, serum creatinine 2.09. ASSESSMENT: 1. Acute kidney injury, currently hemodialysis-dependent. We will schedule him for hemodialysis in a.m. Patient will continue hemodialysis as outpatient. He is scheduled for PermCath placement today. 2. Atrial fibrillation with controlled ventricular response. To resume Eliquis tomorrow. 3. Volume overload, currently improved and stable. 4. Chronic kidney disease, stage 4, with previous creatinine about 2.5, mostly cardiorenal. 5. Congestive heart failure acute on top of chronic, mainly systolic. 6. Mental status changes, possibly related to benzodiazepine withdrawal, currently improved. PLAN: Hemodialysis in a.m. Discharge Planning to arrange for outpatient chair time. SANDY / LELIA: [id number] /
--- NOTE | 2019-09-23 16:53 | IR ---
EXAMINATION TYPE: IR cvc insert central tunneled DATE OF EXAM: 09/23/2019 COMPARISON: NONE HISTORY: Tunneled dialysis catheter placement TECHNIQUE: Fluoroscopy. FINDINGS: Fluoroscopic guidance was provided during tunneled dialysis catheter placement procedure f or performing physician. A total of 0.8 minutes of fluoroscopic time was utilized during the procedu re and 100 images were acquired. Please see operative report for additional details. IMPRESSION: As Above.
[2019-09-23] MEDS: FUROSEMIDE 20 MG TAB PO SCH (17:04)
[2019-09-23] MEDS: FOLIC ACID 1 MG TAB PO SCH (21:08)
[2019-09-23] MEDS: NIFEdipine XL 30 MG TAB.ER.24 PO SCH (21:09)
[2019-09-23] MEDS: ACETAMINOPHEN TAB 325 MG TAB PO PRN (23:18)
--- NOTE | 2019-09-23 23:52 | PCN ---
PROCEDURE NOTE PREOP DIAGNOSIS: Acute on chronic renal failure. PROCEDURE PERFORMED: Placement of 23 cm dialysis catheter right jugular approach. SEDATION TIME: 25 minutes. DESCRIPTION OF PROCEDURE: This patient brought to the laboratory administrative director. Right side of the neck was prepped and draped in the usual manner. This patient had a temporary catheter in right IJ. 1% lidocaine were infiltrated and guide wire was passed which was parked in the inferior vena cava. The catheter was removed. Then tunnel was created. Through the tunnel we brought 23 cm dialysis catheter in the neck area. After that, sheath was advanced on the top of the guidewire. Through the sheath we introduced dialysis catheter. Tip of catheter in superior vena cava and atrial junction. Flushed with heparin saline and hep-locked and secured with 3-0 nylon. Dressing applied. Patient tolerated the procedure well. SANDY / ALFREDON: [id number] /
[2019-09-24 04:38] LABS: Basophils # (A) 0.1 k/uL (0-0.2); Basophils % (A) 1 %; Eosinophils # (A) 0.8 k/uL (0-0.7); Eosinophils % (A) 6 %; HCT 31.9 % (39.0-53.0); HGB 10.1 gm/dL (13.0-17.5); Hypochromasia Slight; Lymphocytes # (A) 0.5 k/uL (1.0-4.8); Lymphocytes % (A) 4 %; MCHC 31.8 g/dL (31.0-37.0); MCV 100.7 fL (80.0-100.0); Macrocytosis Slight; Mean Platelet Volume 7.3; Monocytes # (A) 0.5 k/uL (0-1.0); Monocytes % (A) 4 %; Neutrophils # (A) 9.9 k/uL (1.3-7.7); Neutrophils % (A) 83 %; Platelet Count 349 k/uL (150-450); RBC 3.16 m/uL (4.30-5.90); RDW 14.4 % (11.5-15.5)
[2019-09-24 04:53] LABS: Calcium 8.9 mg/dL (8.4-10.2); Potassium 3.8 mmol/L (3.5-5.1)
[2019-09-24] MEDS: ACETAMINOPHEN TAB 325 MG TAB PO PRN ×2 (05:16→19:57)
[2019-09-24] MEDS: PANTOPRAZOLE 40 MG TABLET PO SCH (07:09)
--- NOTE | 2019-09-24 07:16 | P.PN ---
Subjective Progress Note Date: 09/24/19 Principal diagnosis: Cardiac arrhythmia/complete heart block This is a 74-year-old gentleman with a past medical history significant for coronary artery disease, paroxysmal atrial fibrillation, as well as chronic kidney disease was admitted to the hospital with symptoms of being tired and fatigu and weakness. He was found to be in complete heart block. Also he was found to be hyperkalemic and he was in acute on chronic renal failure. The complete heart block has resolved after the potassium was corrected. The patient was seen today, September [id number]. Clinically he is looking better. The mental status has improved significantly. Hemodynamically he continues to be stable as well. He continues to be in atrial fibrillation was controlled heart rate. He continues to be on oral anticoagulation he is going to undergo dialysis today as well. From the cardiovascular standpoint, the patient can be transferred out of the ICU Objective - Vital Signs Vital signs: Vital Signs Temp 97.8 F 09/24/19 04:00 Pulse 64 09/24/19 04:00 Resp 20 09/24/19 04:00 BP 117/50 09/24/19 04:00 Pulse Ox 99 09/24/19 04:00 Intake & Output 09/23/19 09/24/19 09/24/19 18:59 06:59 18:59 Intake Total 150 Output Total 800 375 Balance -650 -375 Weight 123.6 kg Intake: IV 150 Output: Urine 800 375 Other: Voiding Method Indwelling Catheter Indwelling Catheter - Constitutional General appearance: Present: no acute distress - Respiratory Respiratory: bilateral: diminished - Cardiovascular Rhythm: irregularly irregular Heart sounds: normal: S1, S2 - Labs CBC & Chem 7: 09/24/19 04:14 09/24/19 04:14 Labs: Abnormal Lab Results - Last 24 Hours (Table) 09/24/19 09/24/19 Range/Units 04:14 04:14 WBC 12.0 H (3.8-10.6) k/uL RBC 3.16 L (4.30-5.90) m/uL Hgb 10.1 L (13.0-17.5) gm/dL Hct 31.9 L (39.0-53.0) % MCV 100.7 H (80.0-100.0) fL Neutrophils # 9.9 H (1.3-7.7) k/uL Lymphocytes # 0.5 L (1.0-4.8) k/uL Eosinophils # 0.8 H (0-0.7) k/uL Sodium 132 L (137-145) mmol/L Carbon Dioxide 20 L (22-30) mmol/L BUN 57 H (9-20) mg/dL Creatinine 2.54 H (0.66-1.25) mg/dL Glucose 123 H (74-99) mg/dL Microbiology - Last 24 Hours (Table) 09/21/19 07:45 Urine Culture - Final Urine,Voided Enterococcus faecalis Assessment and Plan Assessment: Assessment #1 acute on chronic renal failure #2 hyperkalemia which has resolved #3 complete heart block which has resolved #4 paroxysmal atrial fibrillation #5 coronary artery disease Plan #1 continue the current medical regimen #2 follow-up with the patient
[2019-09-24] MEDS: ASPIRIN 81 MG PO SCH (08:30)
[2019-09-24] MEDS: GABAPENTIN 100 MG CAP PO SCH ×2 (08:30→22:32)
[2019-09-24] MEDS: hydrALAZINE HCL 50 MG TAB PO SCH ×3 (08:30→22:33)
[2019-09-24] MEDS: ISOSORBIDE MONONITRATE ER 30 MG TAB.ER.24H PO SCH (08:30)
[2019-09-24] MEDS: LORazepam 1 MG TAB PO SCH ×2 (08:31→22:33)
[2019-09-24] MEDS: FUROSEMIDE 20 MG TAB PO SCH ×2 (08:31→16:58)
[2019-09-24] MEDS: RANOLAZINE 500 MG TAB.ER.12H PO SCH ×2 (08:32→23:18)
[2019-09-24] MEDS: polyethylene glycoL 3350 17 GM POWD.PACK PO SCH (08:32)
[2019-09-24] MEDS: APIXABAN 2.5 MG TABLET PO SCH ×2 (10:00→22:32)
--- NOTE | 2019-09-24 12:47 | P.PN ---
Subjective Progress Note Date: 09/24/19 On 09/24/2019, the patient is doing well. He is awake and alert. No respiratory difficulties. He is undergoing dialysis per nephrology. His overall pulmonary status is stable. No cough or sputum production or chest tightness or wheezing. His urine cultures positive for Enterococcus faecalis and the patient remains on IV Rocephin. White cell count is at 12.0. He has a temporary dialysis cath in his right IJ. He remains in atrial fibrillation with a controlled rate. BUN is 57. Creatinine is 2.5. No other significant events overnight. Note that the patient's mental status is improved considerably and the patient has no focal neurological deficits for now. We'll even contemplating to transfer this patient out of the intensive care unit for now. Objective - Vital Signs Vital signs: Vital Signs Temp 97.8 F 09/24/19 04:00 Pulse 64 09/24/19 04:00 Resp 20 09/24/19 04:00 BP 117/50 09/24/19 04:00 Pulse Ox 99 09/24/19 04:00 Intake & Output 09/23/19 09/24/19 09/24/19 18:59 06:59 18:59 Intake Total 150 Output Total 800 375 Balance -650 -375 Weight 123.6 kg Intake: IV 150 Output: Urine 800 375 Other: Voiding Method Indwelling Catheter Indwelling Catheter Indwelling Catheter - Exam General: Ill-appearing, mild distress, nonacute distress and the patient is much more alert and awake compared to yesterday and the patient is communicating and there is no agitation or restlessness on today's evaluation. Head exam was generally normal. There was no scleral icterus or corneal arcus. Mucous membranes were moist. Derm: warm, dry Eyes: EOMI, no lid lag, anicteric sclera Mouth: no lip lesion, mucus membranes moist Cardiovascular: S1S2 reg, no murmur, positive posterior tibial pulse bilateral, Lungs: CTA bilateral, no rhonchi, no rales , no accessory muscle use Abdominal: soft, nontender to palpation, no guarding, no appreciable organomegaly Ext: no gross muscle atrophy, no edema, no contractures Neurologically, the patient is awake and alert and the patient does not have any focal neurological deficit. Cranial nerves are essentially intact. - Labs CBC & Chem 7: 09/24/19 04:14 09/24/19 04:14 Labs: Abnormal Lab Results - Last 24 Hours (Table) 09/24/19 09/24/19 Range/Units 04:14 04:14 WBC 12.0 H (3.8-10.6) k/uL RBC 3.16 L (4.30-5.90) m/uL Hgb 10.1 L (13.0-17.5) gm/dL Hct 31.9 L (39.0-53.0) % MCV 100.7 H (80.0-100.0) fL Neutrophils # 9.9 H (1.3-7.7) k/uL Lymphocytes # 0.5 L (1.0-4.8) k/uL Eosinophils # 0.8 H (0-0.7) k/uL Sodium 132 L (137-145) mmol/L Carbon Dioxide 20 L (22-30) mmol/L BUN 57 H (9-20) mg/dL Creatinine 2.54 H (0.66-1.25) mg/dL Glucose 123 H (74-99) mg/dL Microbiology - Last 24 Hours (Table) 09/21/19 07:45 Urine Culture - Final Urine,Voided Enterococcus faecalis Assessment and Plan Plan: 1 acute on top of chronic kidney disease and the patient has stage IV chronic kidney failure and the patient has had frequent hospitalization for acute hyperkalemia, symptomatic, and the patient was started hemodialysis . Still making adequate urine output and the patient is on Lasix orally. 2 acute hyperkalemia, recovered 3 symptomatic bradycardia secondary to hyperkalemia, recovered 4 encephalopathy, significantly improved and the patient is much more awake and alert on today's evaluation. No focal neurological deficits for now. 5 leukocytosis, Stable 6 chronic atrial fibrillation, Rate is controlled and the patient on long-term articulation with Eliquis 7 coronary artery disease previous coronary stenting 8 peripheral vascular disease 9 chronic back pain 1110 hypertension 11 hyperlipidemia 12 DNR/DNI CODE STATUS 13 Enterococcus faecalis in the urine and the patient is on IV Rocephin. Plan Continue Rocephin Stop the doxycycline Dialysis per nephrology The patient can be transferred out of the intensive care unit for now.
--- NOTE | 2019-09-24 14:54 | PN ---
PROGRESS NOTE Patient is seen for followup for acute kidney injury, currently hemodialysis dependent. Patient also has chronic kidney disease. He has been started on hemodialysis and he will continue outpatient dialysis. PermCath was placed yesterday. The patient is scheduled for hemodialysis today. PHYSICAL EXAMINATION: On examination, blood pressure was 117/50, heart rate 64 per minute, he is afebrile. Examination of the heart S1, S2. Examination of the lungs, decreased breath sounds at bases. Abdomen is soft, nontender, obese. Examination of the lower extremities shows chronic skin changes. No significant edema is noted. SOA INTEGRATION ARCHITECT exam grossly intact. LABS: Show sodium 132, potassium 3.8, CO2 is 20, BUN 57, creatinine 2.54, hemoglobin 10.1 g/dL. ASSESSMENT: 1. Chronic kidney disease with acute kidney injury, currently hemodialysis dependent. Patient will continue outpatient dialysis, mostly for volume overload and repeated admissions. 2. Severe cardiomyopathy. 3. Mental status changes associated with some degree of benzodiazepine withdrawal, currently significantly improved. 4. CHF acute on top of chronic mainly systolic. 5. Chronic kidney disease stage 4 previous creatinine about 2.5, mostly cardiorenal. 6. Chronic atrial fibrillation with controlled ventricular response, to resume the Eliquis. PLAN: Hemodialysis today and patient will be dialyzed as outpatient at the [facility]. MMODL / IJN: [id number] /
--- NOTE | 2019-09-24 16:09 | P.PN ---
Subjective Progress Note Date: 09/24/19 Principal diagnosis: altered mentation Patient is a 74-year-old male with a past medical history of chronic kidney disease stage IV, bradycardia, A. fib, coronary artery disease with prior IA and stenting, and multiple other medical conditions who presented to the hospital secondary to increased fatigue and weakness. Of note this is due to this hospitalization during the month of August all which have been related to hyperkalemia, acute kidney injury, and the last one also had bradycardia with consideration for possible pacemaker. On arrival to the ER he was bradycardic with a heart rate of 38 and hypotensive with a blood pressure of 108/97. Urinalysis showed white blood cell count 11.1, hemoglobin 10.7, sodium 117, potassium 6.7, carbon dioxide 19, anion gap 14, BUN 110, creatinine 3.94. He was seen by cardiology who recommended treatment of his potassium levels for his bradycardia. He was subsequently started on a dopamine drip. He received calcium gluconate, dextrose, insulin, Lasix, fluids, and Kayexalate. He required a dopamine drip to be started for his bradycardia. He was admitted to the ICU. His repeat potassium level IV hours later with still elevated and had not had significant urine output. At that point in time he received repeat temporizing measures, nephrology was contacted who recommended placement of a hemodialysis catheter and urgent dialysis. He received a right IJ temporary dialysis catheter on 09/18 and underwent his first round of dialysis. This resulted in improvement in his potassium and sodium levels. His heart rate stabilized overnight on 09/18. Repeat HD on 09/19. He did develop worsening confusion on 09/19 after his blood pressure increased. I d/w his stopping ativan. However, she did not want to try this at the time as he has a hx of withdrawal symptoms when this was stopped in the past. He had increasing agitation overnight on 09/20 requiring haldol. He was noted to have fevers and increased WBC on the morning of 09/21, UA checked and unremarkable, CXR with left sided infiltrate that could be related to fluid overload VS PNA and increasing O2 requirements noted. He was started on rocephin and doxy. Due to his confusion prozac, gabapentin, and ativan were held. He continued to have increased conf usion overnight on 09/21 and did have an episode of A fib. He was restarted on his ativan and gabapentin. He had improvement in his mentation and arrangement were made for permanent HD cath which was placed on 09/22. Plan is for rehab. Patient seen and examined at bedside. lethargic but awakes to voice. No nausea, no vomiting, no diarrhea, no chest pain, no shortness of breath. Objective - Vital Signs Vital signs: Vital Signs Temp 97.9 F 09/24/19 15:36 Pulse 80 09/24/19 15:36 Resp 20 09/24/19 15:36 BP 126/79 09/24/19 15:36 Pulse Ox 99 09/24/19 04:00 Intake & Output 09/23/19 09/24/19 09/24/19 18:59 06:59 18:59 Intake Total 150 Output Total 484 484 2025 Balance -650 -375 -1800 Weight 123.6 kg Intake: IV 150 Output: Urine 800 375 Hemodialysis 1800 Other: Voiding Method Indwelling Catheter Indwelling Catheter Indwelling Catheter - Exam General: non toxic, no distress, appears older than stated age Derm: puruple discoloration bilateral lower extremities with skin peeling, warm, dry Head: atraumatic, normocephalic, symmetric Eyes: EOMI, no lid lag, anicteric sclera Mouth: no lip lesion, mucus membranes moist Cardiovascular: S1S2 reg, no murmur, positive posterior tibial pulse bilateral, Lungs: Decrease bs bilateral, no rhonchi, no rales , no accessory muscle use Abdominal: soft, nontender to palpation, no guarding, no appreciable organomegaly Ext: no gross muscle atrophy, no edema, no contractures Neuro: CN II-XI grossly intact, no focal neuro deficits Psych: lethargic, talking - Labs CBC & Chem 7: 09/24/19 04:14 09/24/19 04:14 Labs: Abnormal Lab Results - Last 24 Hours (Table) 09/24/19 09/24/19 Range/Units 04:14 04:14 WBC 12.0 H (3.8-10.6) k/uL RBC 3.16 L (4.30-5.90) m/uL Hgb 10.1 L (13.0-17.5) gm/dL Hct 31.9 L (39.0-53.0) % MCV 100.7 H (80.0-100.0) fL Neutrophils # 9.9 H (1.3-7.7) k/uL Lymphocytes # 0.5 L (1.0-4.8) k/uL Eosinophils # 0.8 H (0-0.7) k/uL Sodium 132 L (137-145) mmol/L Carbon Dioxide 20 L (22-30) mmol/L BUN 57 H (9-20) mg/dL Creatinine 2.54 H (0.66-1.25) mg/dL Glucose 123 H (74-99) mg/dL Microbiology - Last 24 Hours (Table) 09/21/19 07:45 Urine Culture - Final Urine,Voided Enterococcus faecalis Assessment and Plan Assessment: Acute kidney injury on chronic kidney disease stage IV, hyponatremia -King catheter inserted with 250 mL of urine, urine output good -Received first round of dialysis 09/18, second around 09/19, 09/21, 09/23 -Started on Lasix 09/20 -Avoid nephrotoxic agents -Strict I's and O's -Hold oral sodium bicarb -Repeat basic metabolic profile in a.m. - nephrology recs: outpatient HD arrangements being made Acute toxic metabolic encephalopathy, improving - Continue Ativan and gabapentin - CT head with no acute process - treatment of possible infection Leukocytosis - probable PNA with increasing WBC and O2 requirements along with possible left sided infiltrate - rocephin and doxy - repeat CXR in AM - UA negative Anemia - likely due to CKD - iron studies appear normal - At baseline Atrial fibrillation -Eliquis -Not on any rate controlling medications so secondary to recent bradycardia -Cardiology recommendations Atherosclerotic coronary artery disease status post stenting -ASA, Eliquis HTN -Hytrin, imdur and nifedipine -hydralazine -Follow blood pressures Significant peripheral vascular disease with chronic pain -Continue with oxycodone, Requip, and Ranexa Hyperkalemia, resolved Non-anion gap metabolic acidosis, resolved hypotension, resolved Symptomatic bradycardia, resolved Moderate TR, severe pulmonary hypertension, severe left atrial dilatation, severe right ventricle enlargement, moderate LVH DVT prophylaxis: SCDs, heparin Discussed with: patient, case management, nursing, Dr. Rios Anticipated discharge date: in AM Anticipated discharge place: [facility] A total of 25 minutes was spent on the care of this complex patient more than 50% of the time was spent in counseling and care coordination.
[2019-09-24] MEDS: ARTIFICIAL TEARS-HYPROMELLOSE DROPS 15 ML BTL BOTH EYES PRN ×2 (18:25→23:26)
[2019-09-24] MEDS: FOLIC ACID 1 MG TAB PO SCH (22:32)
[2019-09-24] MEDS: HYDROcodone/APAP 5-325MG 1 EACH TAB PO PRN (22:41)
[2019-09-24] MEDS: NIFEdipine XL 30 MG TAB.ER.24 PO SCH (23:17)
[2019-09-24] MEDS: DOXAZOSIN 4 MG TAB PO SCH (23:26)
[2019-09-25 04:20] VITALS: PULSE 67
[2019-09-25] MEDS: GABAPENTIN 100 MG CAP PO SCH (05:40)
[2019-09-25] MEDS: ARTIFICIAL TEARS-HYPROMELLOSE DROPS 15 ML BTL BOTH EYES PRN (05:43)
[2019-09-25] MEDS: PANTOPRAZOLE 40 MG TABLET PO SCH (08:26)
[2019-09-25] MEDS: polyethylene glycoL 3350 17 GM POWD.PACK PO SCH (08:27)
[2019-09-25] MEDS: hydrALAZINE HCL 50 MG TAB PO SCH ×2 (08:28→16:04)
[2019-09-25] MEDS: ASPIRIN 81 MG PO SCH (08:28)
[2019-09-25] MEDS: ISOSORBIDE MONONITRATE ER 30 MG TAB.ER.24H PO SCH (08:28)
[2019-09-25] MEDS: FUROSEMIDE 20 MG TAB PO SCH ×2 (08:28→16:04)
[2019-09-25] MEDS: APIXABAN 2.5 MG TABLET PO SCH (08:28)
[2019-09-25] MEDS: LORazepam 1 MG TAB PO SCH (08:28)
[2019-09-25] MEDS: RANOLAZINE 500 MG TAB.ER.12H PO SCH (08:29)
[2019-09-25 08:30] LABS: Potassium 4.3 mmol/L (3.5-5.1)
--- NOTE | 2019-09-25 11:43 | P.PN ---
Subjective Progress Note Date: 09/25/19 Principal diagnosis: Acute on chronic kidney disease, acute hyperkalemia resolved, symptomatic bradycardia resolved On 09/24/2019, the patient is doing well. He is awake and alert. No respiratory difficulties. He is undergoing dialysis per nephrology. His overall pulmonary status is stable. No cough or sputum production or chest tightness or wheezing. His urine cultures positive for Enterococcus faecalis and the patient remains on IV Rocephin. White cell count is at 12.0. He has a temporary dialysis cath in his right IJ. He remains in atrial fibrillation with a controlled rate. BUN is 57. Creatinine is 2.5. No other significant events overnight. Note that the patient's mental status is improved considerably and the patient has no focal neurological deficits for now. We'll even contemplating to transfer this patient out of the intensive care unit for now. On 09/25/2019 patient seen in follow-up on the general medical oncology floor. Yesterday patient was transferred out of the intensive care unit, he has remained stable in the last 24 hours, denies any difficulty breathing, he is currently on 2 L of oxygen his pulse ox is 97%, his been afebrile, hemodynamically stable. He had hemodialysis today and 1.8 L was removed. Lower extremity edema has improved, lung sounds are clear diminished at the bases with some minimal crackles. No new chest x-ray today, his last chest x-ray showed improvement subsegmental atelectasis at the left base. Today's labs have been reviewed, showing sodium of 135, rest of electrolytes are within normal limits, BUN of 43, and creatinine of 2.43. No acute events overnight. Patient is tolerating oral intake, no nausea vomiting, no abdominal pain. He remains on Rocephin for Enterococcus faecalis urinary tract infection. Objective - Vital Signs Vital signs: Vital Signs Temp 97.9 F 09/25/19 04:20 Pulse 67 09/25/19 04:20 Resp 18 09/25/19 04:20 BP 119/71 09/25/19 04:20 Pulse Ox 97 09/25/19 04:20 Intake & Output 09/24/19 09/25/19 09/25/19 18:59 06:59 18:59 Output Total 2049 Balance -2049 Output: Urine 250 Hemodialysis 1800 Other: Voiding Method Indwelling Catheter Indwelling Catheter # Bowel Movements 1 - Exam GENERAL EXAM: Alert, very pleasant, 74-year-old white male, on 2 L of oxygen the pulse ox of 97% comfortable in no apparent distress. HEAD: Normocephalic/atraumatic. EYES: Normal reaction of pupils, equal size. Conjunctiva pink, sclera white. NOSE: Clear with pink turbinates. THROAT: No erythema or exudates. NECK: No masses, no JVD, no thyroid enlargement, no adenopathy. CHEST: No chest wall deformity. Symmetrical expansion. Right upper chest hemodialysis catheter in place LUNGS: Equal air entry with no crackles, wheeze, rhonchi or dullness. CVS: Regular rate and rhythm, normal S1 and S2, no gallops, no murmurs, no rubs ABDOMEN: Soft, nontender. No hepatosplenomegaly, normal bowel sounds, no guarding or rigidity. EXTREMITIES: No clubbing, mild pretibial edema, and chronic venous stasis changes, no cyanosis, 2+ pulses and upper and lower extremities. MUSCULOSKELETAL: Muscle strength and tone normal. SPINE: No scoliosis or deformity SKIN: No rashes CENTRAL NERVOUS SYSTEM: Alert and oriented -3. No focal deficits, tone is normal in all 4 extremities. PSYCHIATRIC: Alert and oriented -3. Appropriate affect. Intact judgment and insight. - Labs CBC & Chem 7: 09/24/19 04:14 09/25/19 08:01 Labs: Abnormal Lab Results - Last 24 Hours (Table) 09/25/19 Range/Units 08:01 Sodium 135 L (137-145) mmol/L BUN 43 H (9-20) mg/dL Creatinine 2.43 H (0.66-1.25) mg/dL Glucose 113 H (74-99) mg/dL Assessment and Plan Plan: Assessment: 1 acute on top of chronic kidney disease and the patient has stage IV chronic kidney failure and the patient has had frequent hospitalization for acute hyperkalemia, symptomatic, and the patient was started hemodialysis . Still m aking adequate urine output and the patient is on Lasix orally. 2 acute hyperkalemia, recovered 3 symptomatic bradycardia secondary to hyperkalemia, recovered 4 encephalopathy, significantly improved and the patient is much more awake and alert on today's evaluation. No focal neurological deficits for now. 5 leukocytosis, Stable 6 chronic atrial fibrillation, Rate is controlled and the patient on long-term articulation with Eliquis 7 coronary artery disease previous coronary stenting 8 peripheral vascular disease 9 chronic back pain 1110 hypertension 11 hyperlipidemia 12 DNR/DNI CODE STATUS 13 Enterococcus faecalis in the urine and the patient is on IV Rocephin. Plan: Patient is doing well, stable, no acute events overnight, vital signs are stable, no worsening dyspnea, no fever chills, he is on Rocephin for Enterococcus faecalis urinary tract infection. No fever or chills, no altered mental status, doing well, discharge planning is in progress for discharge to subacute rehab possibly [facility]. Pulmonary/critical care service will sign off and follow on as-needed basis I performed a history & physical examination of the patient and discussed their management with my nurse practitioner, Michaelle Hopkins. I reviewed the nurse practitioner's note and agree with the documented findings and plan of care. Lung sounds are positive for diminished breath sounds. The findings and the impression was discussed with the patient. I attest to the documentation by the nurse practitioner. Time with Patient: Less than 30
[2019-09-25 12:09] VITALS: BP 146/69; RESP 17; TEMP 98.5
--- NOTE | 2019-09-25 12:33 | P.PN ---
Subjective This is a pleasant 74-year-old male past medical history significant for coronary artery disease, paroxysmal atrial fibrillation, chronic kidney disease, hypertension and morbid obesity. He is seen and examined sitting up in the chair in no acute distress. He denies symptoms of chest pain, shortness of breath, dizziness or palpitations. Laboratory data reviewed, sodium 135, potassium 4.3, creatinine 2.43. Blood pressure 146/69 heart rate 67 afebrile maintaining oxygen saturation on room air. He underwent hemodialysis yesterday. Currently maintained on Eliquis 2.5 mg twice a day, aspirin 81 mg daily, Lasix 60 mg by mouth twice a day, hydralazine 50 mg by mouth 3 times a day, Imdur 30 mg daily, nifedipine 30 mg at bedtime and Ranexa 1000 mg twice a day. GENERAL: Well-appearing, well-nourished and in no acute distress. Morbidly obese. NECK: Supple without JVD or thyromegaly. LUNGS: Breath sounds clear to auscultation bilaterally. Respiration equal and unlabored. No wheezes, rales or rhonchi. HEART: Regular rate and rhythm with systolic ejection murmur at the left sternal border, no rubs or gallops. S1 and S2 heard. Distant heart sounds. EXTREMITIES: Normal range of motion, trace bilateral lower extremity non-pitting edema. No clubbing or cyanosis. Peripheral pulses intact. ASSESSMENT Junctional bradycardia secondary to hyperkalemia, resolved Hyperkalemia, resolved Acute on chronic renal failure Paroxysmal atrial fibrillation on long-term anticoagulation Coronary artery disease Hypertension Morbid obesity, BMI 41 PLAN Recommend daily valtessa to keep his potassium normal, otherwise he will continue to come to the hospital for hyperkalemia and the subsequent complications. He is going to [facility] for rehabilitation. Prescription has been given to the nurse. Nurse Practitioner note has been reviewed, I agree with a documented findings and plan of care. Patient was seen and examined. Objective - Vital Signs Vital signs: Vital Signs Temp 97.9 F 09/25/19 04:20 Pulse 67 09/25/19 04:20 Resp 18 09/25/19 04:20 BP 119/71 09/25/19 04:20 Pulse Ox 97 09/25/19 04:20 Intake & Output 09/24/19 09/25/19 09/25/19 18:59 06:59 18:59 Output Total 2049 Balance -2049 Output: Urine 250 Hemodialysis 1800 Other: Voiding Method Indwelling Catheter Indwelling Catheter # Bowel Movements 1 - Labs CBC & Chem 7: 09/24/19 04:14 09/25/19 08:01 Labs: Abnormal Lab Results - Last 24 Hours (Table) 09/25/19 Range/Units 08:01 Sodium 135 L (137-145) mmol/L BUN 43 H (9-20) mg/dL Creatinine 2.43 H (0.66-1.25) mg/dL Glucose 113 H (74-99) mg/dL
--- NOTE | 2019-09-25 13:02 | PN ---
PROGRESS NOTE Patient is seen for followup for acute kidney injury, currently hemodialysis dependent. He is sitting up in a bedside chair doing well. Patient is scheduled for hemodialysis tomorrow. He states overall he is feeling better. PHYSICAL EXAMINATION: On examination today, blood pressure was 146/59, heart rate 67 per minute, he is afebrile. Examination of the heart S1, S2. Examination of lungs, bilateral breath sounds are heard. Abdomen is obese. Examination of the lower extremities shows chronic skin changes, 1+ edema bilaterally, mostly chronic. LABS: Show sodium 135, potassium 4.3, BUN 43, creatinine 2.4, hemoglobin 10.1 g/dL. ASSESSMENT: 1. Acute kidney injury, currently hemodialysis dependent. Patient will continue with outpatient dialysis at the [facility] on a Sunday, Sunday, Sunday schedule. 2. Severe cardiomyopathy. 3. Mental status changes, now all resolved, mostly associated with benzodiazepine withdrawal. 4. Chronic kidney disease stage 4 previous creatinine about 2.5, mostly cardiorenal. 5. Chronic atrial fibrillation with controlled ventricular response, maintained on Eliquis. 6. Urinary tract infection with urine culture growing Enterococcus faecalis, maintained on ceftriaxone. PLAN: Hemodialysis tomorrow. Patient is stable for discharge from nephrology standpoint. MMODL / IJN: [id number] /
--- NOTE | 2019-09-25 13:18 | P.DS ---
Providers Date of admission: 09/19/19 13:42 Expected date of discharge: 09/25/19 Attending physician: Valerie Herron DO Consults: 09/19/19 13:43 Consult Physician Urgent Consulting Provider: Franklin De León Consult Reason/Comments: bradycardia Do you want consulting provider notified?: Already Contacted 09/19/19 13:44 Consult Physician Urgent Consulting Provider: Blane Rodriguez Consult Reason/Comments: hyperkalemia, renal failure Do you want consulting provider notified?: Yes 09/19/19 14:27 Consult Physician Urgent Consulting Provider: Kobi Swartz Consult Reason/Comments: critical care Do you want consulting provider notified?: Already Contacted 09/19/19 17:42 Consult Physician Stat Consulting Provider: Tc Gonzalez Consult Reason/Comments: HD cath Do you want consulting provider notified?: Yes Primary care physician: Jerod Braun MD Hospital Course: Patient is a 74-year-old male with a past medical history of chronic kidney disease stage IV, bradycardia, A. fib, coronary artery disease with prior IL and stenting, and multiple other medical conditions who presented to the hospital secondary to increased fatigue and weakness. Of note this is due to this hospitalization during the month of August all which have been related to hyperkalemia, acute kidney injury, and the last one also had bradycardia with consideration for possible pacemaker. On arrival to the ER he was bradycardic with a heart rate of 38 and hypotensive with a blood pressure of 108/97. Urinalysis showed white blood cell count 11.1, hemoglobin 10.7, sodium 117, potassium 6.7, carbon dioxide 19, anion gap 14, BUN 110, creatinine 3.94. He was seen by cardiology who recommended treatment of his potassium levels for his bradycardia. He was subsequently started on a dopamine drip. He received calcium gluconate, dextrose, insulin, Lasix, fluids, and Kayexalate. He required a dopamine drip to be started for his bradycardia. He was admitted to the ICU. His repeat potassium level IV hours later with still elevated and had not had significant urine output. At that point in time he received repeat temporizing measures, nephrology was contacted who recommended placement of a hemodialysis catheter and urgent dialysis. He received a right IJ temporary dialysis catheter on 09/18 and underwent his first round of dialysis. This resulted in improvement in his potassium and sodium levels. His heart rate stabilized overnight on 09/18. Repeat HD on 09/19. He did develop worsening confusion on 09/19 after his blood pressure increased. I d/w his stopping ativan. However, she did not want to try this at the time as he has a hx of withdrawal symptoms when this was stopped in the past. He had increasing agitation overnight on 09/20 requiring haldol. He was noted to have fevers and increased WBC on the morning of 09/21, UA checked and unremarkable, CXR with left sided infiltrate that could be related to fluid overload VS PNA and increasing O2 requirements noted. He was started on rocephin and doxy. Due to his confusion prozac, gabapentin, and ativan were held. He continued to have increased confusion overnight on 09/21 and did have an episode of A fib. He was restarted on his ativan and gabapentin at a lower dose. He had improvement in his mentation and arrangement were made for permanent HD cath which was placed on 09/22. Patient was accepted to rehab at [facility]. Cardiology recommended Valtessa for treatment of his hyperkalemia in the outpatient setting. General: [non toxic], [no distress], [appears at stated age], appears lethargic and tired Derm: [warm], [dry] Head: [atraumatic], [normocephalic], [symmetric] Eyes: [EOMI], [no lid lag], [anicteric sclera] Mouth: [no lip lesion], [mucus membranes moist] Cardiovascular: [S1S2 reg], [no murmur], [positive posterior tibial pulse bilateral], Lungs: [Decreased breath sounds bilateral], [no rhonchi, no rales] , [no accessory muscle use] Abdominal: [soft], [ nontender to palpation], [no guarding], [no appreciable organomegaly] Ext: [no gross muscle atrophy], [1+ pitting lower extremity edema], [no contractures] Neuro: [ CN II-XI grossly intact], [no focal neuro deficits] Psych: [Alert], [oriented], [appropriate affect] Acute kidney injury on chronic kidney disease stage IV, hyponatremia -Discussed with nursing to remove King catheter and attempt voiding trial -Received first round of dialysis 09/18, second around 09/19, 09/21, 09/23 -Started on Lasix 09/20 -Avoid nephrotoxic agents -Strict I's and O's -Continue sodium bicarb - nephrology recs: outpatient HD arrangements being made Acute toxic metabolic encephalopathy, improving - Continue Ativan and gabapentin at a lower dose - CT head with no acute process - 3 more days of doxycycline or possible pneumonia/bronchitis Leukocytosis - probable PNA with increasing WBC and O2 requirements along with possible left sided infiltrate - rocephin and doxy, complete 3 more days of doxycycline by mouth - UA negative Anemia - likely due to CKD - iron studies appear normal - At baseline Atrial fibrillation -Eliquis -Not on any rate controlling medications so secondary to recent bradycardia -Cardiology recommendations Atherosclerotic coronary artery disease status post stenting -ASA, Eliquis HTN -Hytrin, imdur and nifedipine -hydralazine -Follow blood pressures Significant peripheral vascular disease with chronic pain -Continue with oxycodone, Requip, and Ranexa Hyperkalemia, resolved Non-anion gap metabolic acidosis, resolved hypotension, resolved Symptomatic bradycardia, resolved Moderate TR, severe pulmonary hypertension, severe left atrial dilatation, severe right ventricle enlargement, moderate LVH Patient admitted for acute kidney injury on chronic kidney disease and hyperkalemia. Dialysis catheter inserted by vascular surgery and outpatient dialysis sessions set up by nephrology. Complicated by confusion which improved with discontinuation of Ativan and gabapentin. Patient to complete 3 more days of doxycycline for possible pneumonia/bronchitis. Cardiology recommends Valtessa continued for treatment for hyperkalemia. Plans to DC to [facility] today. This complex discharge took about 35 minutes to complete. Pertinent Studies: Chest x-ray, echocardiogram, brain CT Procedures: Insertion of dialysis catheter Patient Condition at Discharge: Stable Plan - Discharge Summary Discharge Rx Participant: No New Discharge Prescriptions: New hydrALAZINE HCL [Apresoline] 50 mg PO TID tab Aspirin 81 mg PO DAILY chew LORazepam [Ativan] 1 mg PO Q12HR tab Apixaban [Eliquis] 2.5 mg PO BID tablet Furosemide [Lasix] 60 mg PO BID@0900,1600 tab Gabapentin [Neurontin] 100 mg PO BID cap HYDROcodone/APAP 5-325MG [Monarch 5-325] 1 each PO Q4HR PRN tab PRN Reason: Moderate Pain Pantoprazole [Protonix] 40 mg PO AC-BRKFST tablet. Doxycycline [Vibramycin] 100 mg PO BID 3 Days #6 capsule Continue FLUoxetine HCL [PROzac] 20 mg PO DAILY@1000 Ranolazine [Ranexa] 1,000 mg PO BID@1000,2200 Isosorbide Mononitrate ER [Imdur] 30 mg PO DAILY@1000 rOPINIRole HCL [Requip] 1 mg PO TID@0000,1000,1700 Nitroglycerin Sl Tabs [Nitrostat] 0.4 mg SUBLINGUAL Q5M PRN PRN Reason: Chest Pain Iron Polysaccharide Complex [Myferon 150] 150 mg PO MOWEFR@2200 Folic Acid 1 mg PO HS@2200 Polyethylene Glycol 3350 [Miralax] 17 gm PO DAILY Sodium Bicarbonate Tab 650 mg PO BID@1000,2200 Terazosin [Hytrin] 8 mg PO HS@0000 #120 cap NIFEdipine XL [Procardia XL] 30 mg PO HS 30 Days #30 tab.er.24 Discontinued oxyCODONE HCL [Roxicodone] 5 mg PO BID@1000,1700 LORazepam [Ativan] 1 mg PO TID@0000,1000,1700 Gabapentin [Neurontin] 100 mg PO TID@0000,1000,1700 oxyCODONE HCL [Roxicodone] 10 mg PO DAILY@0000 Rivaroxaban [Xarelto] 15 mg PO DAILY@1700 Torsemide [Demadex] 60 mg PO DAILY@1000 tab Discharge Medication List FLUoxetine HCL [PROzac] 20 mg PO DAILY@1000 07/03/13 [History] Ranolazine [Ranexa] 1,000 mg PO BID@1000,2200 04/27/17 [History] Isosorbide Mononitrate ER [Imdur] 30 mg PO DAILY@1000 06/26/18 [History] Iron Polysaccharide Complex [Myferon 150] 150 mg PO MOWEFR@22005/07/19 [History] Nitroglycerin Sl Tabs [Nitrostat] 0.4 mg SUBLINGUAL Q5M PRN 05/07/19 [History] rOPINIRole HCL [Requip] 1 mg PO TID@0000,1000,1700 05/07/19 [History] Folic Acid 1 mg PO HS@2200 08/12/19 [History] Polyethylene Glycol 3350 [Miralax] 17 gm PO DAILY 08/12/19 [History] Sodium Bicarbonate Tab 650 mg PO BID@1000,2200 08/20/19 [History] Terazosin [Hytrin] 8 mg PO HS@0000 #120 cap 08/22/19 [Rx] NIFEdipine XL [Procardia XL] 30 mg PO HS 30 Days #30 tab.er.24 09/13/19 [Rx] Apixaban [Eliquis] 2.5 mg PO BID tablet 09/25/19 [Rx] Aspirin 81 mg PO DAILY chew 09/25/19 [Rx] Doxycycline [Vibramycin] 100 mg PO BID 3 Days #6 capsule 09/25/19 [Rx] Furosemide [Lasix] 60 mg PO BID@0900,1600 tab 09/25/19 [Rx] Gabapentin [Neurontin] 100 mg PO BID cap 09/25/19 [Rx] HYDROcodone/APAP 5-325MG [Monarch 5-325] 1 each PO Q4HR PRN tab 09/25/19 [Rx] LORazepam [Ativan] 1 mg PO Q12HR tab 09/25/19 [Rx] Pantoprazole [Protonix] 40 mg PO AC-BRKFST tablet. 09/25/19 [Rx] hydrALAZINE HCL [Apresoline] 50 mg PO TID tab 09/25/19 [Rx] Follow up Appointment(s)/Referral(s): Esequiel Rivera MD [STAFF PHYSICIAN] - 2 Weeks Jerod Braun MD [Primary Care Provider] - 1-2 days (please call office to set up appt. time and date.) Macie Rios MD [STAFF PHYSICIAN] - 1 Week [facility] [NON-STAFF] - Activity/Diet/Wound Care/Special Instructions: Diet: Renal FU PCP within 3 days of DC. FU with Cardiology and Nephrology within 1 week of DC. Take Doxy for 3 more days to complete 5 days for possible PNA/Bronchitis. Please resume dialysis in the outpatient setting. Come back to the ED or call 911 for CP, SOB, palpitations. Take Valtessa as instructed on the prescription given at discharge.
== END 2019-09-25 17:03 | DRG 673 ==
LOC: EC 11:45 → 3NCARDOBS 13:42 → OBSVTOIN 13:42 → 3NCARDOBS 13:56 → 2SICU 14:07 → 5NMEDONC 09-24 18:27
PROVIDERS: ADMIT Internal Medicine; ATTEND Internal Medicine
PROC: 5A1D70Z Performance of Urinary Filtration, Intermittent, Less than 6 Hours Per Day (ICD-10-PCS; 2019-09-19)
PROC: 02HV33Z Insertion of Infusion Device into Superior Vena Cava, Percutaneous Approach (ICD-10-PCS; 2019-09-19)
PROC: 0JH63XZ Insertion of Tunneled Vascular Access Device into Chest Subcutaneous Tissue and Fascia, Percutaneous Approach (ICD-10-PCS; principal; 2019-09-23 13:15)
PROC: 02HV33Z Insertion of Infusion Device into Superior Vena Cava, Percutaneous Approach (ICD-10-PCS; principal; 2019-09-23 13:15)
DX: N17.9 Acute kidney failure, unspecified (principal); G92 Toxic encephalopathy; J18.9 Pneumonia, unspecified organism; I50.23 Acute on chronic systolic (congestive) heart failure; I13.0 Hypertensive heart and chronic kidney disease with heart failure and stage 1 through stage 4 chronic kidney disease, or unspecified chronic kidney disease; I42.9 Cardiomyopathy, unspecified; Z68.41 Body mass index [BMI] 40.0-44.9, adult; E87.2 Acidosis; E87.1 Hypo-osmolality and hyponatremia; I44.2 Atrioventricular block, complete; N39.0 Urinary tract infection, site not specified; F13.239 Sedative, hypnotic or anxiolytic dependence with withdrawal, unspecified; I48.0 Paroxysmal atrial fibrillation; I25.10 Atherosclerotic heart disease of native coronary artery without angina pectoris; N18.4 Chronic kidney disease, stage 4 (severe); D63.1 Anemia in chronic kidney disease; E66.01 Morbid (severe) obesity due to excess calories; E78.5 Hyperlipidemia, unspecified; Z11.59 Encounter for screening for other viral diseases; Z66 Do not resuscitate; G25.81 Restless legs syndrome; M19.90 Unspecified osteoarthritis, unspecified site; M10.9 Gout, unspecified; I27.20 Pulmonary hypertension, unspecified; G89.29 Other chronic pain; E87.5 Hyperkalemia; R00.1 Bradycardia, unspecified; I73.9 Peripheral vascular disease, unspecified; M54.9 Dorsalgia, unspecified; I89.0 Lymphedema, not elsewhere classified; B95.2 Enterococcus as the cause of diseases classified elsewhere; Z79.899 Other long term (current) drug therapy; Z79.82 Long term (current) use of aspirin; Z80.3 Family history of malignant neoplasm of breast; Z79.01 Long term (current) use of anticoagulants; Z88.8 Allergy status to other drugs, medicaments and biological substances; I25.2 Old myocardial infarction; Z87.440 Personal history of urinary (tract) infections; Z91.81 History of falling; Z95.5 Presence of coronary angioplasty implant and graft; Z90.89 Acquired absence of other organs; Z98.890 Other specified postprocedural states; Z82.49 Family history of ischemic heart disease and other diseases of the circulatory system; Z99.2 Dependence on renal dialysis
CPT/HCPCS: 36415; 36558; 36600; 70450; 71045; 76937; 77001; 80048; 80053; 81001; 82550; 82728; 82805; 83540; 83550; 83735; 84100; 84439; 84443; 84481; 84484; 85025; 85027; 85610; 85730; 86704; 86706; 87077; 87086; 87186; 87340; 90935; 93005; 93306; 94640; 96365; 96366; 96368; 96375; 99291

== ENCOUNTER 2019-09-27 17:21 | Inpatient (IN) | payer OTHER, MEDICARE ==
--- NOTE | 2019-09-27 17:41 | ED ---
Chest Pain HPI - General Chief Complaint: Chest Pain Stated Complaint: Altered Mental Status Time Seen by Provider: 09/27/19 17:38 Source: patient, EMS, RN notes reviewed, old records reviewed Mode of arrival: EMS Limitations: altered mental status, physical limitation - History of Present Illness Initial Comments: This is a 74-year-old male DF for evaluation of generalized weakness patient was postictal dialysis yesterday did not have dialysis. A she was having some shortness of breath. He admits to severe weakness again shortness of breath lower extremity edema but he also complains of dehydration increased thirst and hunger MD Complaint: other (Patient denies not feeling well) -: days(s) Onset: during rest Severity: moderate Severity scale (1-10): 6 Consistency: constant Improves With: nothing Worsens With: nothing Context: recent illness, recent surgery, new medications Treatments Prior to Arrival: none - Related Data Home Medications Medication Instructions Recorded Confirmed Ranolazine [Ranexa] 1,000 mg PO BID@08,199904/27/17 09/27/19 Iron Polysaccharide Complex 150 mg PO MOWEFR@199905/07/19 09/27/19 [Myferon 150] Nitroglycerin Sl Tabs [Nitrostat] 0.4 mg SUBLINGUAL Q5M PRN 05/07/19 09/27/19 rOPINIRole HCL [Requip] 1 mg PO TID@0000,0800,159905/07/19 09/27/19 Folic Acid 1 mg PO HS@199908/12/19 09/27/19 Polyethylene Glycol 3350 [Miralax] 17 gm PO DAILY@79908/12/19 09/27/19 Sodium Bicarbonate Tab 650 mg PO BID@08,199908/20/19 09/27/19 Apixaban [Eliquis] 2.5 mg PO BID@799,199909/27/19 09/27/19 Aspirin 81 mg PO DAILY@79909/27/19 09/27/19 Doxycycline [Vibramycin] 100 mg PO BID@08,199909/27/19 09/27/19 FLUoxetine HCL [PROzac] 10 mg PO DAILY@79909/27/19 09/27/19 Furosemide [Lasix] 60 mg PO TID@0000,0800,159909/27/19 09/27/19 Gabapentin [Neurontin] 100 mg PO TID@0000,0800,1600 09/27/19 09/27/19 HYDROcodone/APAP 5-325MG [[place] 1 tab PO Q4HR PRN 09/27/19 09/27/19 5-325] Isosorbide Mononitrate ER [Imdur] 30 mg PO DAILY@79909/27/19 09/27/19 LORazepam [Ativan] 1 mg PO BID@799,199909/27/19 09/27/19 Magic Cup 1 dose PO DAILY@1700 09/27/19 09/27/19 NIFEdipine XL [Procardia XL] 30 mg PO DAILY@79909/27/19 09/27/19 Pantoprazole [Protonix] 40 mg PO DAILY@79909/27/19 09/27/19 S.boulardii/B.coagulans/Fos 942 mg PO BID 09/27/19 09/27/19 [Diff-Stat 471 mg Capsule] Terazosin [Hytrin] 8 mg PO HS@199909/27/19 09/27/19 hydrALAZINE HCL [Apresoline] 50 mg PO TID@0000,0800,1600 09/27/19 09/27/19 Previous Rx's Medication Instructions Recorded Patiromer Calcium Sorbitex 8.4 gm PO DAILY #90 powd.pack 09/25/19 [Veltassa] Allergies Allergy/AdvReac Type Severity Reaction Status Date / Time pravastatin Allergy Rash/Hives Verified 09/27/19 18:44 amlodipine AdvReac CONSTIPATIO Verified 09/27/19 18:44 N atenolol AdvReac MALE ED Verified 09/27/19 18:44 hydrochlorothiazide AdvReac RENAL Verified 09/27/19 18:44 IMPAIRMENT Review of Systems ROS Statement: Those systems with pertinent positive or pertinent negative responses have been documented in the HPI. ROS Other: All systems not noted in ROS Statement are negative. EKG Findings - EKG Comments: EKG Findings:: EKG is A. fib 80 QRS 442 QTC 449 Past Medical History Past Medical History: Atrial Fibrillation, Coronary Artery Disease (CAD), Chest Pain / Angina, Heart Failure, Eye Disorder, Hypertension, Myocardial Infarction (HI), Osteoarthritis (OA), Renal Disease Additional Past Medical History / Comment(s): Pt recently admitted to [facility] on 09/10/19 with acute renal failiure/hyperkalemia-3rd degree heart block. Other hx: Past bradycardia/hyperkalemia, CKD stage IV, UTIs, chronic lymphedema, bilateral lower leg cellulitis, spouse states has pin size wound R ankle/weeping from R lower leg/keeps L lower leg in wraps for edema, RLS, chronic low back pain/bulging/herniated discs-sleeps in a recliner, past gout, indirect exposure to agent orange, cataracts, R index finger injury/surgery with limited ROM.. Last Myocardial Infarction Date:: 2009 History of Any Multi-Drug Resistant Organisms: None Reported Date of last positivie culture/infection: 04/02/2018 MDRO Source:: leg wound Past Surgical History: Heart Catheterization With Stent, Tonsillectomy Additional Past Surgical History / Comment(s): t3nrrrhil stents, rt hand sx to repair severed lig/tendons(age 20). Past Anesthesia/Blood Transfusion Reactions: No Reported Reaction Additional Past Anesthesia/Blood Transfusion Reaction / Comment(s): clausterphobia Date of Last Stent Placement:: 2009 Past Psychological History: No Psychological Hx Reported Smoking Status: Never smoker, Second hand smoke exposure Past Alcohol Use History: None Reported Past Drug Use History: None Reported - Past Family History Mother Family Medical History: Cancer Additional Family Medical History / Comment(s): breast cancer, heart problems was on warfarin(pt stated she bled out) Father Family Medical History: Coronary Artery Disease (CAD), Myocardial Infarction (HI) Additional Family Medical History / Comment(s): Father had his 1st HI in his 50s and then from his 2nd HI at the age of 74yrs. General Exam Limitations: altered mental status, physical limitation General appearance: alert, in no apparent distress Head exam: Present: atraumatic, normocephalic, normal inspection Eye exam: Present: normal appearance, PERRL, EOMI. Absent: scleral icterus, conjunctival injection, periorbital swelling ENT exam: Present: normal exam, mucous membranes moist Neck exam: Present: normal inspection. Absent: tenderness, meningismus, lymphad enopathy Respiratory exam: Present: normal lung sounds bilaterally. Absent: respiratory distress, wheezes, rales, rhonchi, stridor Cardiovascular Exam: Present: regular rate, normal rhythm, normal heart sounds. Absent: systolic murmur, diastolic murmur, rubs, gallop, clicks GI/Abdominal exam: Present: soft, normal bowel sounds. Absent: distended, tenderness, guarding, rebound, rigid Extremities exam: Present: normal inspection, full ROM, normal capillary refill. Absent: tenderness, pedal edema, joint swelling, calf tenderness Back exam: Present: normal inspection Neurological exam: Present: alert, oriented X3, CN II-XII intact Psychiatric exam: Present: normal affect, normal mood Skin exam: Present: warm, dry, intact, normal color. Absent: rash Course Vital Signs 09/27/19 09/27/19 17:28 19:08 Temperature 98.6 F 98.1 F Pulse Rate 82 73 Respiratory 19 16 Rate Blood Pressure 176/74 166/82 O2 Sat by Pulse 98 98 Oximetry - Reevaluation(s) Reevaluation #1: 09/27/19 17:52 Medical record is reviewed Reevaluation #2: 09/27/19 19:59 Patient does admit to having occasional chest pain Reevaluation #3: 09/27/19 19:59 Patient feels better with hydration Chest Pain MDM - MDM 74 male DF for water retention some shortness of breath chest pain just feeling weak. Patient is elevated 1.6 [place] under conditions of ACS Critical Care Time Critical Care Time: Yes Total Critical Care Time: 7,654 Disposition Clinical Impression: Unstable angina pectoris, Acute non-ST elevation myocardial infarction (NSTEMI) Disposition: ADMITTED IP TO THIS HOSP Condition: Serious Is patient prescribed a controlled substance at d/c from ED?: No Referrals: Jerod Braun MD [Primary Care Provider] - 1-2 days
[2019-09-27 18:23] LABS: Basophils # (A) 0.1 k/uL (0-0.2); Basophils % (A) 1 %; Eosinophils # (A) 0.5 k/uL (0-0.7); Eosinophils % (A) 5 %; HCT 34.1 % (39.0-53.0); HGB 10.9 gm/dL (13.0-17.5); Lymphocytes # (A) 0.9 k/uL (1.0-4.8); Lymphocytes % (A) 10 %; MCH 31.4 pg (25.0-35.0); MCHC 31.9 g/dL (31.0-37.0); MCV 98.4 fL (80.0-100.0); Mean Platelet Volume 7.1; Monocytes # (A) 0.8 k/uL (0-1.0); Monocytes % (A) 9 %; Neutrophils # (A) 6.2 k/uL (1.3-7.7); Neutrophils % (A) 71 %; Platelet Count 467 k/uL (150-450); RBC 3.46 m/uL (4.30-5.90); RDW 14.3 % (11.5-15.5); WBC 8.8 k/uL (3.8-10.6)
[2019-09-27 18:44] LABS: Albumin 3.9 g/dL (3.5-5.0); Calcium 9.1 mg/dL (8.4-10.2); Magnesium 2.6 mg/dL (1.6-2.3); Potassium 3.7 mmol/L (3.5-5.1); Total Bilirubin 0.7 mg/dL (0.2-1.3); Total Protein 7.2 g/dL (6.3-8.2)
--- NOTE | 2019-09-27 18:49 | XR ---
EXAMINATION TYPE: XR chest 2V DATE OF EXAM: 09/27/2019 COMPARISON: 09/23/2019 HISTORY: Chest pain TECHNIQUE: FINDINGS: Heart appears enlarged. There is no gross heart failure. There is right side central venous catheter with the tip in the superior vena cava. Lungs are clear of consolidation. There is no pleur al effusion. IMPRESSION: No active cardiopulmonary disease. No adverse change.
[2019-09-27 18:57] LABS: INR 1.1 (<1.2); Partial Thromboplastin Time 25.1 sec (22.0-30.0); Prothrombin Time 11.5 sec (9.0-12.0)
[2019-09-27] MEDS ORDERED: NITROGLYCERIN SL TABS 0.4 MG TAB SUBLINGUAL PRN (20:22)
[2019-09-27] MEDS ORDERED: MORPHINE SULFATE 4 MG/ML SYRINGE IV PRN (20:22)
[2019-09-27] MEDS ORDERED: LORazepam 2 MG/ML INJ IV PRN (20:26)
[2019-09-27] MEDS ORDERED: LORazepam 2 MG/ML INJ IV STA (20:26)
[2019-09-27] MEDS: hydrALAZINE HCL 50 MG TAB PO SCH (23:12)
[2019-09-27] MEDS: GABAPENTIN 100 MG CAP PO SCH (23:12)
[2019-09-27] MEDS: FUROSEMIDE 20 MG TAB PO SCH (23:13)
[2019-09-28] MEDS: HYDROcodone/APAP 5-325MG 1 EACH TAB PO PRN ×2 (00:04→14:41)
[2019-09-28 06:50] LABS: Cholesterol 181 mg/dL (<200); HDL Cholesterol 58 mg/dL (40-60); LDL Cholesterol,Calculated 84 mg/dL (0-99); Triglycerides 197 mg/dL (<150)
[2019-09-28] MEDS ORDERED: LORazepam 1 MG TAB PO SCH (08:00)
[2019-09-28 08:17] LABS: Basophils # (A) 0.1 k/uL (0-0.2); Basophils % (A) 1 %; Eosinophils # (A) 0.3 k/uL (0-0.7); Eosinophils % (A) 4 %; HCT 32.4 % (39.0-53.0); HGB 10.7 gm/dL (13.0-17.5); Hypochromasia Slight; Lymphocytes # (A) 0.8 k/uL (1.0-4.8); Lymphocytes % (A) 11 %; MCH 32.9 pg (25.0-35.0); MCHC 33.1 g/dL (31.0-37.0); MCV 99.4 fL (80.0-100.0); Mean Platelet Volume 7.1; Monocytes # (A) 0.6 k/uL (0-1.0); Monocytes % (A) 9 %; Neutrophils # (A) 5.2 k/uL (1.3-7.7); Neutrophils % (A) 73 %; Platelet Count 447 k/uL (150-450); RBC 3.26 m/uL (4.30-5.90); RDW 14.1 % (11.5-15.5); WBC 7.2 k/uL (3.8-10.6)
[2019-09-28 08:31] LABS: Potassium 3.9 mmol/L (3.5-5.1)
[2019-09-28] MEDS: PANTOPRAZOLE 40 MG TABLET PO SCH (08:37)
[2019-09-28] MEDS: FUROSEMIDE 20 MG TAB PO SCH ×3 (08:37→22:58)
[2019-09-28] MEDS: ASPIRIN 325 MG TAB PO SCH (08:37)
[2019-09-28] MEDS: FLUoxetine HCL 10 MG CAP PO SCH (08:37)
[2019-09-28] MEDS: GABAPENTIN 100 MG CAP PO SCH ×3 (08:37→22:58)
[2019-09-28] MEDS: ISOSORBIDE MONONITRATE ER 30 MG TAB.ER.24H PO SCH (08:37)
[2019-09-28] MEDS: NIFEdipine XL 30 MG TAB.ER.24 PO SCH (08:37)
[2019-09-28] MEDS: hydrALAZINE HCL 50 MG TAB PO SCH ×3 (08:37→22:58)
[2019-09-28] MEDS: SODIUM BICARBONATE TAB 650 MG TAB PO SCH ×2 (08:37→20:37)
[2019-09-28] MEDS: APIXABAN 2.5 MG TABLET PO SCH ×2 (08:37→20:36)
[2019-09-28] MEDS: RANOLAZINE 500 MG TAB.ER.12H PO SCH ×2 (08:37→20:36)
--- NOTE | 2019-09-28 09:30 | P.CRDCN ---
History of Present Illness Consult date: 09/28/19 Chief complaint: Generalized weakness History of present illness: This is a very pleasant 74-year-old gentleman with extensive cardiac history co nsistent off coronary artery disease and prior coronary artery stenting with unknown details, chronic diastolic congestive heart failure, long-standing persistent atrial fibrillation on oral anticoagulation, end stage renal disease on hemodialysis, as well as hypertension. The patient presented to the hospital and to the emergency department because he was not feeling well. The patient stated that he was more short of breath than normal. He denies any symptoms of chest pain or chest discomfort, dizziness, heart racing, or syncope. We consulted to see the patient for abnormal cardiac enzymes. I did review the blood work and that revealed mildly elevated troponin does not seems to be cons istent with acute coronary event. The EKG showed atrial fibrillation was controlled heart rate and diffuse nonspecific ST or T-wave abnormalities. As I noted earlier the patient did not have no symptoms of chest pain or chest discomfort. He was seen by our service earlier this month when he presented to the emergency department and was diagnosed with junctional tachycardia but he was found to be hyperkalemic at that point. Was his potassium was corrected he went back into atrial fibrillation was controlled heart rate. During that admission an echocardiogram was performed and revealed normal left ventricular systolic function without any significant valvular abnormalities beside aortic s clerosis and mitral annular calcifications. At this point the patient is on aspirin as well as metoprolol. For some reason he is not on any statin at this point and he was not receiving statin as an outpatient. Past Medical History Past Medical History: Atrial Fibrillation, Coronary Artery Disease (CAD), Chest Pain / Angina, Heart Failure, Eye Disorder, Hypertension, Myocardial Infarction (OK), Osteoarthritis (OA), Renal Disease Additional Past Medical History / Comment(s): Pt recently admitted to [facility] on 09/10/19 with acute renal failiure/hyperkalemia-3rd degree heart block. Other hx: Past bradycardia/hyperkalemia, CKD stage IV, UTIs, chronic lymphedema, bilateral lower leg cellulitis, spouse states has pin size wound R ankle/weeping from R lower leg/keeps L lower leg in wraps for edema, RLS, chronic low back pain/bulging/herniated discs-sleeps in a recliner, past gout, indirect exposure to agent orange, cataracts, R index finger injury/surgery with limited ROM.. Last Myocardial Infarction Date:: 2009 History of Any Multi-Drug Resistant Organisms: None Reported Date of last positivie culture/infection: 04/02/2018 MDRO Source:: leg wound Past Surgical History: Heart Catheterization With Stent, Tonsillectomy Additional Past Surgical History / Comment(s): [id number] stents, rt hand sx to repair severed lig/tendons(age 20). Past Anesthesia/Blood Transfusion Reactions: No Reported Reaction Additional Past Anesthesia/Blood Transfusion Reaction / Comment(s): clausterphobia Date of Last Stent Placement:: 2009 Past Psychological History: No Psychological Hx Reported Additional Psychological History / Comment(s): PT SERVED IN THE [employer] ([employer]) WHEN YOUNGER ([employer]) AND AFTERWARDS WORKED FOR [employer]. HE USES A WHEELCHAIR PRN. HE DRIVES. HE SLEEPS IN A RECLINER. Smoking Status: Never smoker Past Alcohol Use History: None Reported Past Drug Use History: None Reported - Past Family History Mother Family Medical History: Cancer Additional Family Medical History / Comment(s): breast cancer, heart problems was on warfarin(pt stated she bled out) Father Family Medical History: Coronary Artery Disease (CAD), Myocardial Infarction (OK) Additional Family Medical History / Comment(s): Father had his 1st OK in his 50s and then from his 2nd OK at the age of 74yrs. Medications and Allergies Home Medications Medication Instructions Recorded Confirmed Type Ranolazine [Ranexa] 1,000 mg PO BID@08,199904/27/17 09/27/19 History Iron Polysaccharide Complex 150 mg PO MOWEFR@199905/07/19 09/27/19 History [Myferon 150] Nitroglycerin Sl Tabs [Nitrostat] 0.4 mg SUBLINGUAL Q5M PRN 05/07/19 09/27/19 History rOPINIRole HCL [Requip] 1 mg PO TID@0000,0800,1600 05/07/19 09/27/19 History Folic Acid 1 mg PO HS@199908/12/19 09/27/19 History Polyethylene Glycol 3350 [Miralax] 17 gm PO DAILY@0800 08/12/19 09/27/19 History Sodium Bicarbonate Tab 650 mg PO BID@799,199908/20/19 09/27/19 History Patiromer Calcium Sorbitex 8.4 gm PO DAILY #90 powd.pack 09/25/19 09/27/19 Rx [Veltassa] Apixaban [Eliquis] 2.5 mg PO BID@799,199909/27/19 09/27/19 History Aspirin 81 mg PO DAILY@79909/27/19 09/27/19 History Doxycycline [Vibramycin] 100 mg PO BID@799,199909/27/19 09/27/19 History FLUoxetine HCL [PROzac] 10 mg PO DAILY@79909/27/19 09/27/19 History Furosemide [Lasix] 60 mg PO TID@0000,0800,1600 09/27/19 09/27/19 History Gabapentin [Neurontin] 100 mg PO TID@0000,0800,1600 09/27/19 09/27/19 History HYDROcodone/APAP 5-325MG [[place] 1 tab PO Q4HR PRN 09/27/19 09/27/19 History 5-325] Isosorbide Mononitrate ER [Imdur] 30 mg PO DAILY@79909/27/19 09/27/19 History LORazepam [Ativan] 1 mg PO BID@799,199909/27/19 09/27/19 History Magic Cup 1 dose PO DAILY@1700 09/27/19 09/27/19 History NIFEdipine XL [Procardia XL] 30 mg PO DAILY@79909/27/19 09/27/19 History Pantoprazole [Protonix] 40 mg PO DAILY@79909/27/19 09/27/19 History S.boulardii/B.coagulans/Fos 942 mg PO BID 09/27/19 09/27/19 History [Diff-Stat 471 mg Capsule] Terazosin [Hytrin] 8 mg PO HS@199909/27/19 09/27/19 History hydrALAZINE HCL [Apresoline] 50 mg PO TID@0000,0800,1600 09/27/19 09/27/19 History Allergies Allergy/AdvReac Type Severity Reaction Status Date / Time pravastatin Allergy Rash/Hives Verified 09/27/19 18:44 amlodipine AdvReac CONSTIPATIO Verified 09/27/19 18:44 N atenolol AdvReac MALE ED Verified 09/27/19 18:44 hydrochlorothiazide AdvReac RENAL Verified 09/27/19 18:44 IMPAIRMENT Physical Exam Vitals: Vital Signs Temp Pulse Pulse Resp BP BP Pulse Ox 09/28/19 08:00 97.9 F 72 18 150/66 99 09/28/19 04:00 97.6 F 66 17 161/78 99 09/28/19 00:00 97.9 F 74 17 138/62 97 09/27/19 21:35 97.6 F 76 17 146/67 98 09/27/19 20:57 78 18 160/77 99 09/27/19 19:08 98.1 F 73 16 166/82 98 09/27/19 17:28 98.6 F 82 19 176/74 98 Intake and Output 09/27/19 09/28/19 09/28/19 22:59 06:59 14:59 Output Total 800 Balance -800 Output: Urine 800 Other: Voiding Method Bedside Commode Bedside Commode Bedpan Urinal Urinal # Bowel Movements 1 Weight 122.47 kg 123 kg - Constitutional General appearance: no acute distress - Respiratory Respiratory: bilateral: CTA - Cardiovascular Rhythm: irregularly irregular Heart sounds: normal: S1, S2 Results 09/28/19 06:01 09/28/19 06:01 Cardiac Enzymes 09/27/19 09/27/19 09/27/19 Range/Units 18:13 18:13 21:30 AST 27 (17-59) U/L Troponin I 0.602 H* 0.504 H* (0.000-0.034) ng/mL 09/27/19 09/28/19 Range/Units 23:51 06:01 AST (17-59) U/L Troponin I 0.473 H* 0.500 H* (0.000-0.034) ng/mL Coagulation 09/27/19 Range/Units 18:13 PT 11.5 (9.0-12.0) sec APTT 25.1 (22.0-30.0) sec Lipids 09/28/19 Range/Units 06:01 Triglycerides 197 H (<150) mg/dL Cholesterol 181 (<200) mg/dL HDL Cholesterol 58 (40-60) mg/dL CBC 09/27/19 09/28/19 Range/Units 18:13 06:01 WBC 8.8 7.2 (3.8-10.6) k/uL RBC 3.46 L 3.26 L (4.30-5.90) m/uL Hgb 10.9 L 10.7 L (13.0-17.5) gm/dL Hct 34.1 L 32.4 L (39.0-53.0) % Plt Count 467 H 447 (150-450) k/uL Comprehensive Metabolic Panel 09/27/19 09/28/19 Range/Units 18:13 06:01 Sodium 135 L 138 (137-145) mmol/L Potassium 3.7 3.9 (3.5-5.1) mmol/L Chloride 101 103 (98-107) mmol/L Carbon Dioxide 22 23 (22-30) mmol/L BUN 68 H 64 H (9-20) mg/dL Creatinine 3.42 H 3.29 H (0.66-1.25) mg/dL Glucose 111 H 108 H (74-99) mg/dL Calcium 9.1 9.0 (8.4-10.2) mg/dL AST 27 (17-59) U/L ALT 11 (4-49) U/L Alkaline Phosphatase 89 (38-126) U/L Total Protein 7.2 (6.3-8.2) g/dL Albumin 3.9 (3.5-5.0) g/dL Current Medications Generic Name Dose Route Start Last Admin Trade Name Freq PRN Reason Stop Dose Admin Hydrocodone Bitart/Acetaminophen 1 each 09/27/19 22:27 09/28/19 00:04 [place] 5-325 PO 1 each Q4HR PRN Administration Pain Apixaban 2.5 mg 09/28/19 08:00 09/28/19 08:37 Eliquis PO 2.5 mg BID@799,1999 [facility] Administration Aspirin 325 mg 09/28/19 09:00 09/28/19 08:37 Aspirin PO 325 mg DAILY KARINE Administration Doxazosin Mesylate 8 mg 09/28/19 20:00 Cardura PO HS@1999 [facility] Fluoxetine HCl 10 mg 09/28/19 08:00 09/28/19 08:37 Prozac PO 10 mg DAILY@0800 [facility] Administration Furosemide 60 mg 09/28/19 00:00 09/28/19 08:37 Lasix PO 60 mg TID@,08,1599 [facility] Administration Gabapentin 100 mg 09/28/19 00:00 09/28/19 08:37 Neurontin PO 100 mg TID@0000,799,1599 [facility] Administration Hydralazine HCl 50 mg 09/28/19 00:00 09/28/19 08:37 Apresoline PO 50 mg TID@0000,08,1599 [facility] Administration Isosorbide Mononitrate 30 mg 09/28/19 08:00 09/28/19 08:37 Imdur PO 30 mg DAILY@0800 [facility] Administration Lorazepam 1 mg 09/27/19 20:26 Ativan IV Q6HR PRN Anxiety Lorazepam 1 mg 09/28/19 08:00 09/28/19 08:37 Ativan PO 1 mg BID@799,1999 [facility] Administration Morphine Sulfate 4 mg 09/27/19 20:22 Morphine Sulfate (Inj) IV Q4HR PRN Chest Pain Nifedipine 30 mg 09/28/19 08:00 09/28/19 08:37 Procardia Xl PO 30 mg DAILY@0800 [facility] Administration Nitroglycerin 0.4 mg 09/27/19 20:22 Nitrostat SUBLINGUAL Q5M PRN Chest Pain Pantoprazole Sodium 40 mg 09/28/19 08:00 09/28/19 08:37 Protonix PO 40 mg DAILY@0800 [facility] Administration Polyethylene Glycol 17 gm 09/28/19 08:00 Miralax PO DAILY@08 [facility] Ranolazine 1,000 mg 09/28/19 08:00 09/28/19 08:37 Ranexa PO 1,000 mg BID@ [facility] Administration Ropinirole HCl 1 mg 09/28/19 00:00 09/28/19 08:36 Requip PO 1 mg TID@0000,08,1599 [facility] Administration Sodium Bicarbonate 650 mg 09/28/19 08:00 09/28/19 08:37 Sodium Bicarbonate Tab PO 650 mg BID@ [facility] Administration Intake and Output 09/27/19 09/28/19 09/28/19 22:59 06:59 14:59 Output Total 800 Balance -800 Output: Urine 800 Other: Voiding Method Bedside Commode Bedside Commode Bedpan Urinal Urinal # Bowel Movements 1 Weight 122.47 kg 123 kg 09/28/19 06:09/28/19 06:01 Assessment and Plan Assessment: Assessment #1 generalized weakness and fatigue #2 mildly abnormal troponin, does not consistent with acute coronary event #3 long-standing persistent atrial fibrillation on oral anticoagulation #4 coronary artery disease with prior coronary revascularization with unknown details #5 into stage L disease on hemodialysis Plan #1 consider conservative medical approach for the abnormal troponin #2 continue the current medical regimen including aspirin as well as oral nitrate #3 recent echo showed normal LV function #4 the patient seems to be euvolemic on physical examination and not in any overt heart failure #5 follow-up with the patient on when necessary case
[2019-09-28 11:18] VITALS: BMI 42.5
--- NOTE | 2019-09-28 13:07 | P.HPIM ---
History of Present Illness 74-year-old male came in with complains of chest pain without any dizziness heart racing or syncope patient just pain is moderate in severity, patient was recently discharged couple days ago to subacute rehabilitation patient they did not appear to like the place and was anxious because of which he was having chest pain as per the patient. Patient chest pain is regard lady and nonradiating and not associated with food nonpleuritic in nature patient was evaluated by cardiology because of elevated troponins of this chest pain and the troponin elevation is very minimal and the it doesn't appear to be from acute myocardial infarction. Patient does have history of end-stage renal disease on hemodialysis. Patient does have history of atrial fibrillation patient had normal ventricular systolic function. Review of Systems REVIEW OF SYSTEMS: CONSTITUTIONAL: No fever, no malaise, no fatigue. HEENT: No recent visual problems or hearing problems. Denied any sore throat. CARDIOVASCULAR: No orthopnea, PND, no palpitations, no syncope. PULMONARY: No shortness of breath, no cough, no hemoptysis. GASTROINTESTINAL: No diarrhea, no nausea, no vomiting, no abdominal pain. NEUROLOGICAL: No headaches, no weakness, no numbness. HEMATOLOGICAL: Denies any bleeding or petechiae. GENITOURINARY: Denies any burning micturition, frequency, or urgency. MUSCULOSKELETAL/RHEUMATOLOGICAL: Denies any joint pain, swelling, or any muscle pain. ENDOCRINE: Denies any polyuria or polydipsia. The rest of the 14-point review of systems is negative. Past Medical History Past Medical History: Atrial Fibrillation, Coronary Artery Disease (CAD), Chest Pain / Angina, Heart Failure, Eye Disorder, Hypertension, Myocardial Infarction (VT), Osteoarthritis (OA), Renal Disease Additional Past Medical History / Comment(s): Pt recently admitted to [facility] on 09/10/19 with acute renal failiure/hyperkalemia-3rd degree heart block. Other hx: Past bradycardia/hyperkalemia, CKD stage IV, UTIs, chronic lymphedema, bilateral lower leg cellulitis, spouse states has pin size wound R ankle/weeping from R lower leg/keeps L lower leg in wraps for edema, RLS, chronic low back pain/bulging/herniated discs-sleeps in a recliner, past gout, indirect exposure to agent orange, cataracts, R index finger injury/surgery with limited ROM.. Last Myocardial Infarction Date:: 2009 History of Any Multi-Drug Resistant Organisms: None Reported Date of last positivie culture/infection: 04/02/2018 MDRO Source:: leg wound Past Surgical History: Heart Catheterization With Stent, Tonsillectomy Additional Past Surgical History / Comment(s): [id number] stents, rt hand sx to repair severed lig/tendons(age 20). Past Anesthesia/Blood Transfusion Reactions: No Reported Reaction Additional Past Anesthesia/Blood Transfusion Reaction / Comment(s): clausterphobia Date of Last Stent Placement:: 2009 Past Psychological History: No Psychological Hx Reported Additional Psychological History / Comment(s): PT SERVED IN THE [employer] ([employer]) WHEN YOUNGER ([employer]) AND AFTERWARDS WORKED FOR [employer]. HE USES A WHEELCHAIR PRN. HE DRIVES. HE SLEEPS IN A RECLINER. Smoking Status: Never smoker Past Alcohol Use History: None Reported Past Drug Use History: None Reported - Past Family History Mother Family Medical History: Cancer Additional Family Medical History / Comment(s): breast cancer, heart problems was on warfarin(pt stated she bled out) Father Family Medical History: Coronary Artery Disease (CAD), Myocardial Infarction (VT) Additional Family Medical History / Comment(s): Father had his 1st VT in his 50s and then from his 2nd VT at the age of 74yrs. Medications and Allergies Home Medications Medication Instructions Recorded Confirmed Type Ranolazine [Ranexa] 1,000 mg PO BID@0800,199904/27/17 09/27/19 History Iron Polysaccharide Complex 150 mg PO MOWEFR@199905/07/19 09/27/19 History [Myferon 150] Nitroglycerin Sl Tabs [Nitrostat] 0.4 mg SUBLINGUAL Q5M PRN 05/07/19 09/27/19 History rOPINIRole HCL [Requip] 1 mg PO TID@0000,0800,1600 05/07/19 09/27/19 History Folic Acid 1 mg PO HS@199908/12/19 09/27/19 History Polyethylene Glycol 3350 [Miralax] 17 gm PO DAILY@0800 08/12/19 09/27/19 History Sodium Bicarbonate Tab 650 mg PO BID@08,199908/20/19 09/27/19 History Patiromer Calcium Sorbitex 8.4 gm PO DAILY #90 powd.pack 09/25/19 09/27/19 Rx [Veltassa] Apixaban [Eliquis] 2.5 mg PO BID@799,199909/27/19 09/27/19 History Aspirin 81 mg PO DAILY@79909/27/19 09/27/19 History Doxycycline [Vibramycin] 100 mg PO BID@799,199909/27/19 09/27/19 History FLUoxetine HCL [PROzac] 10 mg PO DAILY@79909/27/19 09/27/19 History Furosemide [Lasix] 60 mg PO TID@0000,0800,159909/27/19 09/27/19 History Gabapentin [Neurontin] 100 mg PO TID@0000,0800,1600 09/27/19 09/27/19 History HYDROcodone/APAP 5-325MG [[place] 1 tab PO Q4HR PRN 09/27/19 09/27/19 History 5-325] Isosorbide Mononitrate ER [Imdur] 30 mg PO DAILY@79909/27/19 09/27/19 History LORazepam [Ativan] 1 mg PO BID@799,199909/27/19 09/27/19 History Magic Cup 1 dose PO DAILY@1700 09/27/19 09/27/19 History NIFEdipine XL [Procardia XL] 30 mg PO DAILY@79909/27/19 09/27/19 History Pantoprazole [Protonix] 40 mg PO DAILY@79909/27/19 09/27/19 History S.boulardii/B.coagulans/Fos 942 mg PO BID 09/27/19 09/27/19 History [Diff-Stat 471 mg Capsule] Terazosin [Hytrin] 8 mg PO HS@199909/27/19 09/27/19 History hydrALAZINE HCL [Apresoline] 50 mg PO TID@0000,0800,1600 09/27/19 09/27/19 History Allergies Allergy/AdvReac Type Severity Reaction Status Date / Time pravastatin Allergy Rash/Hives Verified 09/27/19 18:44 amlodipine AdvReac CONSTIPATIO Verified 09/27/19 18:44 N atenolol AdvReac MALE ED Verified 09/27/19 18:44 hydrochlorothiazide AdvReac RENAL Verified 09/27/19 18:44 IMPAIRMENT Physical Exam Vitals: Vital Signs Temp Pulse Pulse Resp BP BP Pulse Ox 09/28/19 08:00 97.9 F 72 18 150/66 99 09/28/19 04:00 97.6 F 66 17 161/78 99 09/28/19 00:00 97.9 F 74 17 138/62 97 09/27/19 21:35 97.6 F 76 17 146/67 98 09/27/19 20:57 78 18 160/77 99 09/27/19 19:08 98.1 F 73 16 166/82 98 09/27/19 17:28 98.6 F 82 19 176/74 98 Intake and Output 09/27/19 09/28/19 09/28/19 22:59 06:59 14:59 Output Total 800 Balance -800 Output: Urine 800 Other: Voiding Method Bedside Commode Bedside Commode Bedpan Urinal Urinal # Bowel Movements 1 Weight 122.47 kg 123 kg 123 kg PHYSICAL EXAMINATION: GENERAL: The patient is alert and oriented x3, not in any acute distress. Well developed, well nourished. HEENT: Pupils are round and equally reacting to light. EOMI. No scleral icterus. No conjunctival pallor. Normocephalic, atraumatic. No pharyngeal erythema. No thyromegaly. CARDIOVASCULAR: S1 and S2 present. No murmurs, rubs, or gallops. PULMONARY: Chest is clear to auscultation, no wheezing or crackles. ABDOMEN: Soft, nontender, nondistended, normoactive bowel sounds. No palpable organomegaly. MUSCULOSKELETAL: No joint swelling or deformity. EXTREMITIES: No cyanosis, clubbing, or pedal edema. NEUROLOGICAL: Gross neurological examination did not reveal any focal deficits. SKIN: No rashes. Results CBC & Chem 7: 09/28/19 06:01 09/28/19 06:01 Labs: Abnormal Lab Results - Last 24 Hours (Table) 09/27/19 09/27/19 09/27/19 Range/Units 18:13 18:13 18:13 RBC 3.46 L (4.30-5.90) m/uL Hgb 10.9 L (13.0-17.5) gm/dL Hct 34.1 L (39.0-53.0) % Plt Count 467 H (150-450) k/uL Lymphocytes # 0.9 L (1.0-4.8) k/uL Sodium 135 L (137-145) mmol/L BUN 68 H (9-20) mg/dL Creatinine 3.42 H (0.66-1.25) mg/dL Glucose 111 H (74-99) mg/dL Magnesium 2.6 H (1.6-2.3) mg/dL Troponin I 0.602 H* (0.000-0.034) ng/mL Triglycerides (<150) mg/dL 09/27/19 09/27/19 09/28/19 Range/Units 21:30 23:51 06:01 RBC (4.30-5.90) m/uL Hgb (13.0-17.5) gm/dL Hct (39.0-53.0) % Plt Count (150-450) k/uL Lymphocytes # (1.0-4.8) k/uL Sodium (137-145) mmol/L BUN (9-20) mg/dL Creatinine (0.66-1.25) mg/dL Glucose (74-99) mg/dL Magnesium (1.6-2.3) mg/dL Troponin I 0.504 H* 0.473 H* (0.000-0.034) ng/mL Triglycerides 197 H (<150) mg/dL 09/28/19 09/28/19 09/28/19 Range/Units 06:01 06:01 06:01 RBC 3.26 L (4.30-5.90) m/uL Hgb 10.7 L (13.0-17.5) gm/dL Hct 32.4 L (39.0-53.0) % Plt Count (150-450) k/uL Lymphocytes # 0.8 L (1.0-4.8) k/uL Sodium (137-145) mmol/L BUN 64 H (9-20) mg/dL Creatinine 3.29 H (0.66-1.25) mg/dL Glucose 108 H (74-99) mg/dL Magnesium (1.6-2.3) mg/dL Troponin I 0.500 H* (0.000-0.034) ng/mL Triglycerides (<150) mg/dL Assessment and Plan Plan: -Chest pain: Appears to be atypical patient elevated troponin is secondary to end-stage renal disease. No further Intervention is being planned appears to be noncardiac in appears to be secondary to anxiety. Ruled out acute coronary syndromes -Elevated troponin secondary to estrogen disease -Carotid artery disease with prior coronary revascularization next and-atrial fibrillation on anti-correlation which will be continued patient is presently rate controlled -End-stage renal disease disease on hemodialysis which will be continued Anemia of chronic kidney disease -Depression
[2019-09-28] MEDS: prednisoLONE ACETATE 1% OPHTH DROPS 5 ML BTL BOTH EYES SCH ×6 (14:40→22:59)
[2019-09-28] MEDS: polyethylene glycoL 3350 17 GM POWD.PACK PO SCH (17:02)
[2019-09-28] MEDS: DOXAZOSIN 4 MG TAB PO SCH (20:36)
[2019-09-28] MEDS: LORazepam 1 MG TAB PO PRN (22:58)
[2019-09-29] MEDS: prednisoLONE ACETATE 1% OPHTH DROPS 5 ML BTL BOTH EYES SCH ×10 (01:03→22:34)
[2019-09-29] MEDS: HYDROcodone/APAP 5-325MG 1 EACH TAB PO PRN ×4 (01:38→22:35)
[2019-09-29 07:22] LABS: HCT 36.4 % (39.0-53.0); HGB 11.2 gm/dL (13.0-17.5); Hypochromasia Slight; MCH 31.2 pg (25.0-35.0); MCHC 30.7 g/dL (31.0-37.0); MCV 101.6 fL (80.0-100.0); Macrocytosis Slight; Mean Platelet Volume 6.8; Platelet Count 379 k/uL (150-450); RBC 3.58 m/uL (4.30-5.90); RDW 14.1 % (11.5-15.5); WBC 6.3 k/uL (3.8-10.6)
[2019-09-29 07:31] LABS: Calcium 8.9 mg/dL (8.4-10.2); Potassium 3.7 mmol/L (3.5-5.1)
[2019-09-29] MEDS: APIXABAN 2.5 MG TABLET PO SCH ×2 (08:44→21:16)
[2019-09-29] MEDS: hydrALAZINE HCL 50 MG TAB PO SCH ×3 (08:44→22:34)
[2019-09-29] MEDS: polyethylene glycoL 3350 17 GM POWD.PACK PO SCH (08:44)
[2019-09-29] MEDS: GABAPENTIN 100 MG CAP PO SCH ×3 (08:44→22:35)
[2019-09-29] MEDS: SODIUM BICARBONATE TAB 650 MG TAB PO SCH ×2 (08:44→21:16)
[2019-09-29] MEDS: ASPIRIN 325 MG TAB PO SCH (08:44)
[2019-09-29] MEDS: ISOSORBIDE MONONITRATE ER 30 MG TAB.ER.24H PO SCH (08:44)
[2019-09-29] MEDS: FUROSEMIDE 20 MG TAB PO SCH ×3 (08:44→22:34)
[2019-09-29] MEDS: NIFEdipine XL 30 MG TAB.ER.24 PO SCH (08:45)
[2019-09-29] MEDS: RANOLAZINE 500 MG TAB.ER.12H PO SCH ×2 (08:45→21:16)
[2019-09-29] MEDS: PANTOPRAZOLE 40 MG TABLET PO SCH (08:45)
[2019-09-29] MEDS: FLUoxetine HCL 10 MG CAP PO SCH (08:51)
--- NOTE | 2019-09-29 11:33 | P.NPCON ---
History of Present Illness - Reason for Consult acute renal failure, chronic renal failure - History of Present Illness reason for consultation: Acute kidney injury on chronic kidney disease History of present illness: Patient is a 74-year-old male seen in renal consultation for acute kidney injury on chronic kidney disease. Patient is currently hemodialysis dependent. He was last dialyzed last week while at this facility. However due to insurance concerns, he has not gotten dialysis outpatient. Patient presented to the hospital from extended care facility as he did not like the facility. He called the ambulance complaining of chest pain but states he never really had chest pain. He is currently sitting up in bed. Denies chest pain or shortness of breath. No fever or chills. He is eager to be discharged. He has a permacath in place. Patient has a history of chronic kidney disease stage IV with baseline creatinine near 2.5. Patient was started on hemodialysis due to recurrent admissions for volume overload as well as hyperkalemia. Vital signs are stable. General: The patient appeared well nourished and normally developed. HEENT: Head exam is unremarkable. Neck is without jugular venous distension. LUNGS: Breath sounds decreased. HEART: Rate and Rhythm are regular. ABDOMEN: soft, nontender. Obese. EXTREMITITES: 2+ edema. Wrapped. Past Medical History Past Medical History: Atrial Fibrillation, Coronary Artery Disease (CAD), Chest Pain / Angina, Heart Failure, Eye Disorder, Hypertension, Myocardial Infarction (HI), Osteoarthritis (OA), Renal Disease Additional Past Medical History / Comment(s): Pt recently admitted to [facility] on 09/10/19 with acute renal failiure/hyperkalemia-3rd degree heart block. Other hx: Past bradycardia/hyperkalemia, CKD stage IV, UTIs, chronic lymphedema, bilateral lower leg cellulitis, spouse states has pin size wound R ankle/weeping from R lower leg/keeps L lower leg in wraps for edema, RLS, chronic low back pain/bulging/herniated discs-sleeps in a recliner, past gout, indirect exposure to agent orange, cataracts, R index finger injury/surgery with limited ROM.. Last Myocardial Infarction Date:: 2009 History of Any Multi-Drug Resistant Organisms: None Reported Date of last positivie culture/infection: 04/02/2018 MDRO Source:: leg wound Past Surgical History: Heart Catheterization With Stent, Tonsillectomy Additional Past Surgical History / Comment(s): [id number] stents, rt hand sx to repair severed lig/tendons(age 20). Past Anesthesia/Blood Transfusion Reactions: No Reported Reaction Additional Past Anesthesia/Blood Transfusion Reaction / Comment(s): clauster phobia Date of Last Stent Placement:: 2009 Past Psychological History: No Psychological Hx Reported Additional Psychological History / Comment(s): PT SERVED IN THE [employer] ([place]) WHEN YOUNGER ([employer]) AND AFTERWARDS WORKED FOR [employer]. HE USES A WHEELCHAIR PRN. HE DRIVES. HE SLEEPS IN A RECLINER. Smoking Status: Never smoker Past Alcohol Use History: None Reported Past Drug Use History: None Reported - Past Family History Mother Family Medical History: Cancer Additional Family Medical History / Comment(s): breast cancer, heart problems was on warfarin(pt stated she bled out) Father Family Medical History: Coronary Artery Disease (CAD), Myocardial Infarction (HI) Additional Family Medical History / Comment(s): Father had his 1st HI in his 50s and then from his 2nd HI at the age of 74yrs. Medications and Allergies Home Medications Medication Instructions Recorded Confirmed Type Ranolazine [Ranexa] 1,000 mg PO BID@799,199904/27/17 09/27/19 History Iron Polysaccharide Complex 150 mg PO MOWEFR@199905/07/19 09/27/19 History [Myferon 150] Nitroglycerin Sl Tabs [Nitrostat] 0.4 mg SUBLINGUAL Q5M PRN 05/07/19 09/27/19 History rOPINIRole HCL [Requip] 1 mg PO TID@0000,0800,1600 05/07/19 09/27/19 History Folic Acid 1 mg PO HS@199908/12/19 09/27/19 History Polyethylene Glycol 3350 [Miralax] 17 gm PO DAILY@0800 08/12/19 09/27/19 History Sodium Bicarbonate Tab 650 mg PO BID@799,199908/20/19 09/27/19 History Patiromer Calcium Sorbitex 8.4 gm PO DAILY #90 powd.pack 09/25/19 09/27/19 Rx [Veltassa] Apixaban [Eliquis] 2.5 mg PO BID@799,199909/27/19 09/27/19 History Aspirin 81 mg PO DAILY@79909/27/19 09/27/19 History Doxycycline [Vibramycin] 100 mg PO BID@799,199909/27/19 09/27/19 History FLUoxetine HCL [PROzac] 10 mg PO DAILY@79909/27/19 09/27/19 History Furosemide [Lasix] 60 mg PO TID@0000,0800,159909/27/19 09/27/19 History Gabapentin [Neurontin] 100 mg PO TID@0000,0800,159909/27/19 09/27/19 History HYDROcodone/APAP 5-325MG [[place] 1 tab PO Q4HR PRN 09/27/19 09/27/19 History 5-325] Isosorbide Mononitrate ER [Imdur] 30 mg PO DAILY@79909/27/19 09/27/19 History LORazepam [Ativan] 1 mg PO BID@799,199909/27/19 09/27/19 History Magic Cup 1 dose PO DAILY@1700 09/27/19 09/27/19 History NIFEdipine XL [Procardia XL] 30 mg PO DAILY@79909/27/19 09/27/19 History Pantoprazole [Protonix] 40 mg PO DAILY@79909/27/19 09/27/19 History S.boulardii/B.coagulans/Fos 942 mg PO BID 09/27/19 09/27/19 History [Diff-Stat 471 mg Capsule] Terazosin [Hytrin] 8 mg PO HS@199909/27/19 09/27/19 History hydrALAZINE HCL [Apresoline] 50 mg PO TID@0000,0800,159909/27/19 09/27/19 History Allergies Allergy/AdvReac Type Severity Reaction Status Date / Time pravastatin Allergy Rash/Hives Verified 09/27/19 18:44 amlodipine AdvReac CONSTIPATIO Verified 09/27/19 18:44 N atenolol AdvReac MALE ED Verified 09/27/19 18:44 hydrochlorothiazide AdvReac RENAL Verified 09/27/19 18:44 IMPAIRMENT Physical Exam Vitals: Vital Signs Temp Pulse Resp BP Pulse Ox 09/29/19 08:54 97.0 F L 64 18 147/68 98 08/10/20 03:46 98 F 63 19 131/58 99 09/29/19 00:00 98 F 66 17 128/60 99 09/28/19 20:00 98.2 F 66 17 131/61 99 09/28/19 16:00 97.7 F 76 18 137/65 99 09/28/19 12:00 62 18 126/60 100 Intake and Output 09/28/19 09/29/19 09/29/19 22:59 06:59 14:59 Output Total 300 200 Balance -300 -200 Output: Urine 300 200 Other: Voiding Method Bedside Commode Bedside Commode Bedside Commode Urinal Urinal Urinal Weight 112.6 kg Results - Lab Results Most recent lab results Calcium 8.9 mg/dL (8.4-10.2) 09/29/19 06:58 Magnesium 2.6 mg/dL (1.6-2.3) H 09/27/19 18:13 09/29/19 06:58 09/29/19 06:58 Assessment and Plan Plan: assessment: 1. Acute kidney injury, currently hemodialysis dependent. Patient has not gone to his outpatient dialysis center due to insurance issues. 2. Chronic kidney disease stage IV with baseline creatinine near 2.5. 3. Chronic diastolic CHF. 4. Metabolic acidosis secondary to chronic kidney disease maintained on oral sodium bicarbonate. 5. Hypertension with chronic kidney disease. Stable. Plan: Hemodialysis today with goal to liters ultrafiltration. Maintain oral Lasix. Outpatient dialysis needs to be set up prior to discharge. Discussed with rn case management. Thank you for the consultation. I will continue to follow the patient with you during his hospital stay.
[2019-09-29] MEDS ORDERED: HEPARIN SODIUM,PORCINE 5,000 UNIT/ML 1 ML VIAL ONE (12:00)
--- NOTE | 2019-09-29 14:33 | P.PN ---
Subjective Progress Note Date: 09/29/19 Principal diagnosis: 74-year-old male came in with complains of chest pain without any dizziness heart racing or syncope patient just pain is moderate in severity, patient was recently discharged couple days ago to subacute rehabilitation patient they did not appear to like the place and was anxious because of which he was having chest pain as per the patient. Patient chest pain is regard lady and nonradiating and not associated with food nonpleuritic in nature patient was e valuated by cardiology because of elevated troponins of this chest pain and the troponin elevation is very minimal and the it doesn't appear to be from acute myocardial infarction. Patient does have history of end-stage renal disease on hemodialysis. Patient does have history of atrial fibrillation patient had normal ventricular systolic function. 09/29/2019 Patient is seen and evaluated and follow-up with no acute overnight issues. Patient was evaluated by cardiology recommending continue current medications. Patient had been receiving dialysis although was not receiving any dialysis dur ing subacute rehab as insurance was never verified for dialysis. Patient missed approximately one week of dialysis. Nephrology consulted and patient will have hemodialysis today. We'll need to verify coverage and arrange for hemodialysis in the outpatient setting. Case management and social work also following for the possibility of ECF placement or home care. Patient currently denies any bob [place] pain, shortness of breath, or palpitations. Patient is afebrile. No reports of nausea or vomiting and patient is tolerating diet. Objective - Vital Signs Vital signs: Vital Signs Temp 97.6 F 09/29/19 12:19 Pulse 68 09/29/19 12:19 Resp 18 09/29/19 12:19 BP 134/61 09/29/19 12:19 Pulse Ox 97 09/29/19 12:19 Intake & Output 09/28/19 09/29/19 09/29/19 18:59 06:59 18:59 Output Total 350 500 200 Balance -350 -500 -200 Weight 123 kg 112.6 kg Output: Urine 350 500 200 Other: Voiding Method Bedside Commode Bedside Commode Bedside Commode Urinal Urinal Urinal # Bowel Movements 1 - Exam GENERAL: The patient is alert and oriented x3, not in any acute distress. Well developed, well nourished. HEENT: Pupils are round and equally reacting to light. EOMI. No scleral icterus. No conjunctival pallor. Normocephalic, atraumatic. No pharyngeal erythema. No thyromegaly. CARDIOVASCULAR: S1 and S2 present. No murmurs, rubs, or gallops. PULMONARY: Chest is clear to auscultation, no wheezing or crackles. ABDOMEN: Soft, nontender, nondistended, normoactive bowel sounds. No palpable organomegaly. MUSCULOSKELETAL: No joint swelling or deformity. EXTREMITIES: No cyanosis, clubbing, or pedal edema. NEUROLOGICAL: Gross neurological examination did not reveal any focal deficits. SKIN: No rashes. - Labs CBC & Chem 7: 09/29/19 06:58 09/29/19 06:58 Labs: Abnormal Lab Results - Last 24 Hours (Table) 09/29/19 09/29/19 Range/Units 06:58 06:58 RBC 3.58 L (4.30-5.90) m/uL Hgb 11.2 L (13.0-17.5) gm/dL Hct 36.4 L (39.0-53.0) % MCV 101.6 H (80.0-100.0) fL MCHC 30.7 L (31.0-37.0) g/dL Sodium 135 L (137-145) mmol/L Carbon Dioxide 21 L (22-30) mmol/L BUN 68 H (9-20) mg/dL Creatinine 3.09 H (0.66-1.25) mg/dL Glucose 115 H (74-99) mg/dL Assessment and Plan Assessment: -Chest pain: Appears to be atypical patient elevated troponin is secondary to end-stage renal disease. No further Intervention is being planned appears to be noncardiac in appears to be secondary to anxiety. Ruled out acute coronary syndromes -Elevated troponin secondary to chronic kidney disease -Coronary artery disease with prior coronary revascularization -atrial fibrillation on anticoagulation which will be continued patient is presently rate controlled -End-stage renal disease disease on hemodialysis which will be continued, nephrology consulted and patient will receive dialysis today -Anemia of chronic kidney disease -Depression Plan: Continue current medications, management, and symptomatic treatment. Nephrology consulted and patient will receive dialysis today. Case management and social work following and arranging for verification of coverage for continued he modialysis. Patient may also need ECF placement or rehab upon discharge in case management making arrangements. Will repeat a.m. labs. Further recommendations to follow. Anticipate discharge in 24-48 hours.
[2019-09-29] MEDS: DOXAZOSIN 4 MG TAB PO SCH (21:16)
[2019-09-30] MEDS: prednisoLONE ACETATE 1% OPHTH DROPS 5 ML BTL BOTH EYES SCH ×5 (03:30→18:46)
[2019-09-30 07:31] LABS: Basophils # (A) 0.1 k/uL (0-0.2); Basophils % (A) 1 %; Eosinophils # (A) 0.3 k/uL (0-0.7); Eosinophils % (A) 4 %; HCT 33.3 % (39.0-53.0); HGB 10.3 gm/dL (13.0-17.5); Lymphocytes # (A) 0.9 k/uL (1.0-4.8); Lymphocytes % (A) 12 %; MCH 30.7 pg (25.0-35.0); MCHC 30.8 g/dL (31.0-37.0); MCV 99.8 fL (80.0-100.0); Mean Platelet Volume 7.1; Monocytes # (A) 0.6 k/uL (0-1.0); Monocytes % (A) 9 %; Neutrophils # (A) 5.3 k/uL (1.3-7.7); Neutrophils % (A) 71 %; Platelet Count 418 k/uL (150-450); RBC 3.34 m/uL (4.30-5.90); RDW 14.2 % (11.5-15.5); WBC 7.5 k/uL (3.8-10.6)
[2019-09-30 07:47] LABS: Potassium 3.7 mmol/L (3.5-5.1)
[2019-09-30] MEDS: polyethylene glycoL 3350 17 GM POWD.PACK PO SCH (08:29)
[2019-09-30] MEDS: RANOLAZINE 500 MG TAB.ER.12H PO SCH ×2 (08:29→18:45)
[2019-09-30] MEDS: GABAPENTIN 100 MG CAP PO SCH ×2 (08:29→15:34)
[2019-09-30] MEDS: NIFEdipine XL 30 MG TAB.ER.24 PO SCH (08:29)
[2019-09-30] MEDS: APIXABAN 2.5 MG TABLET PO SCH ×2 (08:30→18:46)
[2019-09-30] MEDS: SODIUM BICARBONATE TAB 650 MG TAB PO SCH ×2 (08:30→18:45)
[2019-09-30] MEDS: FUROSEMIDE 20 MG TAB PO SCH ×2 (08:30→15:34)
[2019-09-30] MEDS: ASPIRIN 325 MG TAB PO SCH (08:30)
[2019-09-30] MEDS: hydrALAZINE HCL 50 MG TAB PO SCH ×2 (08:30→15:34)
[2019-09-30] MEDS: FLUoxetine HCL 10 MG CAP PO SCH (08:30)
[2019-09-30] MEDS: PANTOPRAZOLE 40 MG TABLET PO SCH (08:30)
[2019-09-30] MEDS: ISOSORBIDE MONONITRATE ER 30 MG TAB.ER.24H PO SCH (08:30)
[2019-09-30] MEDS: LORazepam 1 MG TAB PO PRN ×2 (09:18→16:30)
--- NOTE | 2019-09-30 12:42 | P.PN ---
Subjective Patient is seen in follow for acute kidney injury currently hemodialysis dependent. Tolerated dialysis well yesterday but he did cut his treatment short due to back pain. Feels better today. He wants to go home. Vital signs are stable. General: The patient appeared well nourished and normally developed. HEENT: Head exam is unremarkable. Neck is without jugular venous distension. LUNGS: Breath sounds decreased. HEART: Rate and Rhythm are regular. ABDOMEN: Soft, nontender. Obese. EXTREMITITES: Wrapped. No drainage noted. Objective - Vital Signs Vital signs: Vital Signs Temp 97.7 F 09/30/19 08:44 Pulse 53 L 09/30/19 08:44 Resp 18 09/30/19 08:44 BP 145/67 09/30/19 08:44 Pulse Ox 98 09/30/19 08:44 Intake & Output 09/29/19 09/30/19 09/30/19 18:59 06:59 18:59 Intake Total 340 360 Output Total 675 1380 275 Balance -335 -1380 85 Weight 113.3 kg Intake: Oral 340 360 Output: Urine 675 380 275 Hemodialysis 1000 Other: Voiding Method Bedside Commode Bedside Commode Bedside Commode Urinal Urinal Urinal # Voids 2 1 1 - Labs CBC & Chem 7: 09/30/19 06:38 09/30/19 06:38 Labs: Abnormal Lab Results - Last 24 Hours (Table) 09/30/19 09/30/19 Range/Units 06:38 06:38 RBC 3.34 L (4.30-5.90) m/uL Hgb 10.3 L (13.0-17.5) gm/dL Hct 33.3 L (39.0-53.0) % MCHC 30.8 L (31.0-37.0) g/dL Lymphocytes # 0.9 L (1.0-4.8) k/uL BUN 49 H (9-20) mg/dL Creatinine 2.56 H (0.66-1.25) mg/dL Glucose 119 H (74-99) mg/dL Assessment and Plan Plan: assessment: 1. Acute kidney injury, currently hemodialysis dependent. Patient has not gone to his outpatient dialysis center due to insurance issues. Last dialysis September 28. 2. Chronic kidney disease stage IV with baseline creatinine near 2.5 secondary to nephrosclerosis. 3. Chronic diastolic CHF. 4. Metabolic acidosis secondary to chronic kidney disease maintained on oral sodium bicarbonate. Better. 5. Hypertension with chronic kidney disease. Stable. Plan: Hemodialysis tomorrow. Maintain oral Lasix. Outpatient dialysis needs to be set up prior to discharge. Discussed with nurse case manager. Monitor for renal recovery outpatient.
[2019-09-30] MEDS: HYDROcodone/APAP 5-325MG 1 EACH TAB PO PRN (18:12)
[2019-09-30] MEDS: DOXAZOSIN 4 MG TAB PO SCH (18:46)
--- NOTE | 2019-10-01 08:53 | P.DS ---
Providers Date of admission: 09/27/19 20:23 Expected date of discharge: 09/30/19 Attending physician: Ave Layne Consults: 09/29/19 10:14 Consult Physician Urgent Consulting Provider: Ehsan Barrientos Consult Reason/Comments: HD PATIENT Do you want consulting provider notified?: Yes Primary care physician: Jerod Braun MD Hospital Course: Final diagnosis -Chest pain: Appears to be atypical patient elevated troponin is secondary to end-stage renal disease, appears to be noncardiac in appears to be secondary to anxiety. Ruled out acute coronary syndromes -Elevated troponin secondary to chronic kidney disease -Coronary artery disease with prior coronary revascularization -atrial fibrillation on anticoagulation -End-stage renal disease disease on hemodialysis which will be continued -Anemia of chronic kidney disease -Depression Discharge disposition Patient is being discharged in a stable condition with guarded prognosis to home. Patient will follow-up with Dr. Jerod Braun in the outpatient setting upon discharge. Patient also instructed to follow-up with nephrology in the outpatient setting. Patient is to continue with hemodialysis as scheduled with [facility] on the Sunday//Sunday schedule. Total time taken is greater than 35 minutes. History of present illness This is a 74-year-old male who was recently admitted with chest pain without any dizziness and was being closely monitored. Cardiology evaluated the patient recommending continue current medications and follow-up outpatient as needed. Patient was recently at an [facility] for rehab and did not receive any dialysis during the week of rehab as they were insurance issues and verification issues per case management. Nephrology was following the patient as well and patient was receiving hemodialysis while hospitalized. Case management following during this hospitalization and arrange for the patient to receive dialysis in the outpatient setting at [facility] on Sunday//Sunday schedule. [facility] in the [facility] setting. Patient will be discharged home today. Currently no reports of chest pain, shortness of breath, or palpitations. Patient is afebrile. No reports of nausea or vomiting and patient is tolerating diet. Patient will be discharged home today. On exam vital signs are stable. Temp is 98.9F, pulse is 73, respirations are 18, blood pressure is 144/72, oxygen saturation is 99% on room air. Cardio S1, S2 are muffled. Respiratory system shows diminished breath sounds at the bases with some scattered rhonchi noted. Abdomen is soft and nontender. Nervous system shows no focal deficits. Please refer to medication reconciliation sheet for a list of medications. Patient Condition at Discharge: Fair Plan - Discharge Summary Discharge Rx Participant: No New Discharge Prescriptions: New prednisoLONE ACETATE 1% OPHTH [Pred Forte 1%] 2 drops BOTH EYES HS 30 Days #7 ml Continue Ranolazine [Ranexa] 1,000 mg PO BID@0800,1999 rOPINIRole HCL [Requip] 1 mg PO TID@0000,0800,1600 Nitroglycerin Sl Tabs [Nitrostat] 0.4 mg SUBLINGUAL Q5M PRN PRN Reason: Chest Pain Iron Polysaccharide Complex [Myferon 150] 150 mg PO MOWEFR@1999 Folic Acid 1 mg PO HS@1999 Polyethylene Glycol 3350 [Miralax] 17 gm PO DAILY@0800 Sodium Bicarbonate Tab 650 mg PO BID@0800,1999 Patiromer Calcium Sorbitex [Veltassa] 8.4 gm PO DAILY #90 powd.pack Apixaban [Eliquis] 2.5 mg PO BID@0800,1999 Aspirin 81 mg PO DAILY@0800 FLUoxetine HCL [PROzac] 10 mg PO DAILY@0800 Isosorbide Mononitrate ER [Imdur] 30 mg PO DAILY@0800 Magic Cup 1 dose PO DAILY@1700 NIFEdipine XL [Procardia XL] 30 mg PO DAILY@0800 Pantoprazole [Protonix] 40 mg PO DAILY@0800 S.boulardii/B.coagulans/Fos [Diff-Stat 471 mg Capsule] 942 mg PO BID Terazosin [Hytrin] 8 mg PO HS@1999 LORazepam [Ativan] 1 mg PO BID@0800,1999 Furosemide [Lasix] 60 mg PO TID@0000,0800,1600 Gabapentin [Neurontin] 100 mg PO TID@0000,0800,1600 hydrALAZINE HCL [Apresoline] 50 mg PO TID@0000,0800,1600 HYDROcodone/APAP 5-325MG [[place] 5-325] 1 tab PO Q4HR PRN PRN Reason: Pain Discontinued Doxycycline [Vibramycin] 100 mg PO BID@0800,1999 Discharge Medication List Ranolazine [Ranexa] 1,000 mg PO BID@0800,199904/27/17 [History] Iron Polysaccharide Complex [Myferon 150] 150 mg PO MOWEFR@199905/07/19 [History] Nitroglycerin Sl Tabs [Nitrostat] 0.4 mg SUBLINGUAL Q5M PRN 05/07/19 [History] rOPINIRole HCL [Requip] 1 mg PO TID@0000,0800,1600 05/07/19 [History] Folic Acid 1 mg PO HS@199908/12/19 [History] Polyethylene Glycol 3350 [Miralax] 17 gm PO DAILY@79908/12/19 [History] Sodium Bicarbonate Tab 650 mg PO BID@799,199908/20/19 [History] Patiromer Calcium Sorbitex [Veltassa] 8.4 gm PO DAILY #90 powd.pack 09/25/19 [Rx] Apixaban [Eliquis] 2.5 mg PO BID@08,199909/27/19 [History] Aspirin 81 mg PO DAILY@79909/27/19 [History] FLUoxetine HCL [PROzac] 10 mg PO DAILY@79909/27/19 [History] Furosemide [Lasix] 60 mg PO TID@0000,0800,1600 09/27/19 [History] Gabapentin [Neurontin] 100 mg PO TID@0000,0800,1600 09/27/19 [History] HYDROcodone/APAP 5-325MG [[place] 5-325] 1 tab PO Q4HR PRN 09/27/19 [History] Isosorbide Mononitrate ER [Imdur] 30 mg PO DAILY@79909/27/19 [History] LORazepam [Ativan] 1 mg PO BID@799,199909/27/19 [History] Magic Cup 1 dose PO DAILY@1700 09/27/19 [History] NIFEdipine XL [Procardia XL] 30 mg PO DAILY@79909/27/19 [History] Pantoprazole [Protonix] 40 mg PO DAILY@79909/27/19 [History] S.boulardii/B.coagulans/Fos [Diff-Stat 471 mg Capsule] 942 mg PO BID 09/27/19 [History] Terazosin [Hytrin] 8 mg PO HS@199909/27/19 [History] hydrALAZINE HCL [Apresoline] 50 mg PO TID@0000,0800,1600 09/27/19 [History] prednisoLONE ACETATE 1% OPHTH [Pred Forte 1%] 2 drops BOTH EYES HS 30 Days #7 ml 09/30/19 [Rx] Follow up Appointment(s)/Referral(s): Jerod Braun MD [Primary Care Provider] - 1-2 days (OFFICES ARE CLOSED. PLEASE CALL TO MAKE A POST HOS[ITAL FOLLOW UP APPOINTMENT ) [facility] [NON-STAFF] - (start 10-01 06:30, pt will have dialysis 06:30) Ehsan Barrientos DO [STAFF PHYSICIAN] - 1 Week (PLEASE CALL TO MAKE A FOLLOW UP APPOINTMENT WHEN OFFICES OPEN. ) Ambulatory/Diagnostic Orders: Basic Metabolic Panel [LAB.AMB] Time Frame: 3 Days, Location: None Selected Patient Instructions/Handouts: Dialysis Diet (DC), Hemodialysis (DC) Activity/Diet/Wound Care/Special Instructions: Activity Limited until follow-up Follow-up with primary care provider upon discharge Follow-up with nephrology in the outpatient setting [facility] with [facility] Repeat labs in 2-3 days to monitor kidney functions Continue renal, heart healthy diet [employer] [phone] wheel chair bus to pick up operator @05:45 on Sunday and at drive to [facility]. Pt will need to find a ride to dialysis on Sunday AM. Pt to call [employer] at end of Dialysis treatment for a ride home. Residential home care [phone] [facility] [phone] [facility] [phone] Discharge Disposition: HOME SELF-CARE
[2019-10-01 09:10] VITALS: BP 147/56; PULSE 65; RESP 16; TEMP 97.4
== END 2019-09-30 19:29 | disposition home health service (06) | DRG 880 ==
LOC: EC 17:21 → 3SCARD 20:23
PROVIDERS: ADMIT Hospitalist; ATTEND Hospitalist
PROC: 5A1D70Z Performance of Urinary Filtration, Intermittent, Less than 6 Hours Per Day (ICD-10-PCS; principal; 2019-09-30)
DX: F41.9 Anxiety disorder, unspecified (principal); N18.6 End stage renal disease; I13.2 Hypertensive heart and chronic kidney disease with heart failure and with stage 5 chronic kidney disease, or end stage renal disease; I50.32 Chronic diastolic (congestive) heart failure; I48.11 Longstanding persistent atrial fibrillation; N17.9 Acute kidney failure, unspecified; E87.2 Acidosis; D63.1 Anemia in chronic kidney disease; F32.9 Major depressive disorder, single episode, unspecified; G25.81 Restless legs syndrome; I25.10 Atherosclerotic heart disease of native coronary artery without angina pectoris; M19.90 Unspecified osteoarthritis, unspecified site; E66.9 Obesity, unspecified; E86.0 Dehydration; E87.5 Hyperkalemia; Z79.01 Long term (current) use of anticoagulants; Z79.899 Other long term (current) drug therapy; Z79.82 Long term (current) use of aspirin; Z88.8 Allergy status to other drugs, medicaments and biological substances; I25.2 Old myocardial infarction; Z87.440 Personal history of urinary (tract) infections; Z86.19 Personal history of other infectious and parasitic diseases; Z95.5 Presence of coronary angioplasty implant and graft; Z99.2 Dependence on renal dialysis; Z90.89 Acquired absence of other organs; Z98.890 Other specified postprocedural states; Z82.49 Family history of ischemic heart disease and other diseases of the circulatory system; Z80.3 Family history of malignant neoplasm of breast; Z68.39 Body mass index [BMI] 39.0-39.9, adult
CPT/HCPCS: 36415; 71046; 80048; 80053; 80061; 83735; 83880; 84484; 85025; 85027; 85610; 85730; 90935; 93005; 96374; 96375; 99285

== ENCOUNTER 2019-10-28 06:57 | Emergency (ER) | payer OTHER ==
--- NOTE | 2019-10-28 07:20 | ED ---
General Adult HPI - General Chief complaint: Fever Stated complaint: Fever Time Seen by Provider: 10/28/19 07:00 Source: patient, family, RN notes reviewed, old records reviewed Mode of arrival: wheelchair Limitations: no limitations - History of Present Illness Initial comments: This is a 74-year-old male with past medical history significant for recent dialysis. Patient was going to dialysis today and they took his temperature was 101. Patient states he has no complaint whatsoever. Patient states he doesn't feel warm or chills. Patient had his temperature taken in triage and twice in the room and it was normal. Patient denies any headache patient denies numbness weakness. Patient denies any lightheadedness or dizziness. Patient denies c hest pain difficulty breathing shortness of breath per patient denies any known fever to him or chills or cough. Patient denies any shortness of breath difficulty breathing. Patient denies abdominal pain patient denies nausea vomiting or diarrhea. - Related Data Home Medications Medication Instructions Recorded Confirmed Ranolazine [Ranexa] 1,000 mg PO BID@799,199904/27/17 09/27/19 Iron Polysaccharide Complex 150 mg PO MOWEFR@199905/07/19 09/27/19 [Myferon 150] Nitroglycerin Sl Tabs [Nitrostat] 0.4 mg SUBLINGUAL Q5M PRN 05/07/19 09/27/19 rOPINIRole HCL [Requip] 1 mg PO TID@0000,0800,159905/07/19 09/27/19 Folic Acid 1 mg PO HS@199908/12/19 09/27/19 Polyethylene Glycol 3350 [Miralax] 17 gm PO DAILY@79908/12/19 09/27/19 Sodium Bicarbonate Tab 650 mg PO BID@799,199908/20/19 09/27/19 Apixaban [Eliquis] 2.5 mg PO BID@799,199909/27/19 09/27/19 Aspirin 81 mg PO DAILY@79909/27/19 09/27/19 FLUoxetine HCL [PROzac] 10 mg PO DAILY@79909/27/19 09/27/19 Furosemide [Lasix] 60 mg PO TID@0000,0800,1600 09/27/19 09/27/19 Gabapentin [Neurontin] 100 mg PO TID@0000,0800,1600 09/27/19 09/27/19 HYDROcodone/APAP 5-325MG [[place] 1 tab PO Q4HR PRN 09/27/19 09/27/19 5-325] Isosorbide Mononitrate ER [Imdur] 30 mg PO DAILY@0800 09/27/19 09/27/19 LORazepam [Ativan] 1 mg PO BID@0800,199909/27/19 09/27/19 Magic Cup 1 dose PO DAILY@1700 09/27/19 09/27/19 NIFEdipine XL [Procardia XL] 30 mg PO DAILY@79909/27/19 09/27/19 Pantoprazole [Protonix] 40 mg PO DAILY@79909/27/19 09/27/19 S.boulardii/B.coagulans/Fos 942 mg PO BID 09/27/19 09/27/19 [Diff-Stat 471 mg Capsule] Terazosin [Hytrin] 8 mg PO HS@199909/27/19 09/27/19 hydrALAZINE HCL [Apresoline] 50 mg PO TID@0000,0800,1600 09/27/19 09/27/19 Previous Rx's Medication Instructions Recorded Patiromer Calcium Sorbitex 8.4 gm PO DAILY #90 powd.pack 09/25/19 [Veltassa] prednisoLONE ACETATE 1% OPHTH 2 drops BOTH EYES HS 30 Days #7 ml 09/30/19 [Pred Forte 1%] Allergies Allergy/AdvReac Type Severity Reaction Status Date / Time pravastatin Allergy Rash/Hives Verified 10/28/19 07:04 amlodipine AdvReac CONSTIPATIO Verified 10/28/19 07:04 N atenolol AdvReac MALE ED Verified 10/28/19 07:04 hydrochlorothiazide AdvReac RENAL Verified 10/28/19 07:04 IMPAIRMENT Review of Systems ROS Statement: Those systems with pertinent positive or pertinent negative responses have been documented in the HPI. ROS Other: All systems not noted in ROS Statement are negative. Past Medical History Past Medical History: Atrial Fibrillation, Coronary Artery Disease (CAD), Chest Pain / Angina, Heart Failure, Eye Disorder, Hypertension, Myocardial Infarction ([place]), Osteoarthritis (OA), Renal Disease Additional Past Medical History / Comment(s): Pt recently admitted to [facility] on 09/10/19 with acute renal failiure/hyperkalemia-3rd degree heart block. Other hx: Past bradycardia/hyperkalemia, CKD stage IV, UTIs, chronic lymphedema, bilateral lower leg cellulitis, spouse states has pin size wound R ankle/weeping from R lower leg/keeps L lower leg in wraps for edema, RLS, chronic low back pain/bulging/herniated discs-sleeps in a recliner, past gout, indirect exposure to agent orange, cataracts, R index finger injury/surgery with limited ROM.. Last Myocardial Infarction Date:: 2009 History of Any Multi-Drug Resistant Organisms: None Reported Date of last positivie culture/infection: 04/02/2018 MDRO Source:: leg wound Past Surgical History: Heart Catheterization With Stent, Tonsillectomy Additional Past Surgical History / Comment(s): [id number] stents, rt hand sx to repair severed lig/tendons(age 20). Past Anesthesia/Blood Transfusion Reactions: No Reported Reaction Additional Past Anesthesia/Blood Transfusion Reaction / Comment(s): clausterphobia Date of Last Stent Placement:: 2009 Past Psychological History: No Psychological Hx Reported Smoking Status: Never smoker Past Alcohol Use History: None Reported Past Drug Use History: None Reported - Past Family History Mother Family Medical History: Cancer Additional Family Medical History / Comment(s): breast cancer, heart problems was on warfarin(pt stated she bled out) Father Family Medical History: Coronary Artery Disease (CAD), Myocardial Infarction ([place]) Additional Family Medical History / Comment(s): Father had his 1st IN in his 50s and then from his 2nd IN at the age of 74yrs. General Exam - General Exam Comments Initial Comments: GENERAL: Patient is well-developed and well-nourished. Patient is nontoxic and well- hydrated and is in no acute distress. ENT: Neck is soft and supple. No significant lymphadenopathy is noted. Oropharynx is clear. Moist mucous membranes. Neck has full range of motion without eliciting any pain. EYES: The sclera were anicteric and conjunctiva were pink and moist. Extraocular movements were intact and pupils were equal round and reactive to light. Eyelids were unremarkable. PULMONARY: Unlabored respirations. Good breath sounds bilaterally. No audible rales rhonchi or wheezing was noted. CARDIOVASCULAR: There is a regular rate and rhythm without any murmurs gallops or rubs. ABDOMEN: Soft and nontender with normal bowel sounds. SKIN: Skin is clear with no lesions or rashes and otherwise unremarkable. NEUROLOGIC: Patient is alert and oriented x3. Cranial nerves II through XII are grossly intact. Motor and sensory are also intact. Normal speech, volume and content. Symmetrical smile. MUSCULOSKELETAL: Normal extremities with adequate strength and full range of motion. Patient has edema bilaterally which she states is the same as normal LYMPHATICS: No significant lymphadenopathy is noted PSYCHIATRIC: Normal psychiatric evaluation. Limitations: no limitations Course Vital Signs 10/28/19 10/28/19 10/28/19 07:00 08:00 08:12 Temperature 98.7 F 97.9 F Pulse Rate 69 79 Pulse Rate [ 67 [employer] ] Respiratory 20 18 Rate Blood Pressure 152/72 129/58 O2 Sat by Pulse 97 86 L Oximetry 10/28/19 10/28/19 08:20 09:30 Temperature 98.9 F Pulse Rate 74 Pulse Rate [ [employer] ] Respiratory 18 Rate Blood Pressure 132/70 O2 Sat by Pulse 92 L 96 Oximetry Medical Decision Making - Medical Decision Making EKG shows atrial fibrillation with occasional PVC at 77 bpm QRS is 86 QT interval 442 QTC is 500. Patient's EKG shows no ST segment elevation or depression. Chest x-ray shows some pulmonary edema. Patient's oxygenation was decreasing when he was off oxygen but he did not want to stay in fact refused to stay and stated here or to call the dialysis center and they would take him in today so he was given leave here and go to get dialyzed. Again I recommended the patient staying but again he refused to stay. I also prophylactically ordered antibiotics but the patient refused to take them - Lab Data Result diagrams: 10/28/19 07:56 10/28/19 07:56 Lab Results 10/28/19 10/28/19 10/28/19 Range/Units 07:56 07:56 07:56 WBC 11.2 H (3.8-10.6) k/uL RBC 3.10 L (4.30-5.90) m/uL Hgb 9.8 L (13.0-17.5) gm/dL Hct 31.0 L (39.0-53.0) % MCV 100.1 H (80.0-100.0) fL MCH 31.7 (25.0-35.0) pg MCHC 31.7 (31.0-37.0) g/dL RDW 15.7 H (11.5-15.5) % Plt Count 404 (150-450) k/uL Neutrophils % 84 % Lymphocytes % 5 % Monocytes % 6 % Eosinophils % 2 % Basophils % 1 % Neutrophils # 9.4 H (1.3-7.7) k/uL Lymphocytes # 0.6 L (1.0-4.8) k/uL Monocytes # 0.7 (0-1.0) k/uL Eosinophils # 0.2 (0-0.7) k/uL Basophils # 0.1 (0-0.2) k/uL Hypochromasia Slight Macrocytosis Slight PT 14.6 H (9.0-12.0) sec INR 1.5 H (<1.2) APTT 38.9 H (22.0-30.0) sec Sodium (137-145) mmol/L Potassium (3.5-5.1) mmol/L Chloride (98-107) mmol/L Carbon Dioxide (22-30) mmol/L Anion Gap mmol/L BUN (9-20) mg/dL Creatinine (0.66-1.25) mg/dL Est GFR (CKD-EPI)AfAm (>60 ml/min/1.73 sqM) Est GFR (CKD-EPI)NonAf (>60 ml/min/1.73 sqM) Glucose (74-99) mg/dL Plasma Lactic Acid Harman (0.7-2.0) mmol/L Calcium (8.4-10.2) mg/dL Total Bilirubin (0.2-1.3) mg/dL AST (17-59) U/L ALT (4-49) U/L Alkaline Phosphatase (38-126) U/L NT-Pro-B Natriuret Pep pg/mL Total Protein (6.3-8.2) g/dL Albumin (3.5-5.0) g/dL Urine Color Yellow Urine Appearance Clear (Clear) Urine pH 5.0 (5.0-8.0) Ur Specific [place] 1.014 (1.001-1.035) Urine Protein Negative (Negative) Urine Glucose (UA) Negative (Negative) Urine Ketones Negative (Negative) Urine Blood Negative (Negative) Urine Nitrite Negative (Negative) Urine Bilirubin Negative (Negative) Urine Urobilinogen <2.0 (<2.0) mg/dL Ur Leukocyte Esterase Negative (Negative) 10/28/19 10/28/19 10/28/19 Range/Units 07:56 07:56 07:56 WBC (3.8-10.6) k/uL RBC (4.30-5.90) m/uL Hgb (13.0-17.5) gm/dL Hct (39.0-53.0) % MCV (80.0-100.0) fL MCH (25.0-35.0) pg MCHC (31.0-37.0) g/dL RDW (11.5-15.5) % Plt Count (150-450) k/uL Neutrophils % % Lymphocytes % % Monocytes % % Eosinophils % % Basophils % % Neutrophils # (1.3-7.7) k/uL Lymphocytes # (1.0-4.8) k/uL Monocytes # (0-1.0) k/uL Eosinophils # (0-0.7) k/uL Basophils # (0-0.2) k/uL Hypochromasia Macrocytosis PT (9.0-12.0) sec INR (<1.2) APTT (22.0-30.0) sec Sodium 133 L (137-145) mmol/L Potassium 4.6 (3.5-5.1) mmol/L Chloride 94 L (98-107) mmol/L Carbon Dioxide 27 (22-30) mmol/L Anion Gap 12 mmol/L BUN 51 H (9-20) mg/dL Creatinine 2.80 H (0.66-1.25) mg/dL Est GFR (CKD-EPI)AfAm 25 (>60 ml/min/1.73 sqM) Est GFR (CKD-EPI)NonAf 21 (>60 ml/min/1.73 sqM) Glucose 120 H (74-99) mg/dL Plasma Lactic Acid [place] 1.4 (0.7-2.0) mmol/L Calcium 8.7 (8.4-10.2) mg/dL Total Bilirubin 1.2 (0.2-1.3) mg/dL AST 25 (17-59) U/L ALT 12 (4-49) U/L Alkaline Phosphatase 89 (38-126) U/L NT-Pro-B Natriuret Pep 8210 pg/mL Total Protein 7.3 (6.3-8.2) g/dL Albumin 3.8 (3.5-5.0) g/dL Urine Color Urine Appearance (Clear) Urine pH (5.0-8.0) Ur Specific [place] (1.001-1.035) Urine Protein (Negative) Urine Glucose (UA) (Negative) Urine Ketones (Negative) Urine Blood (Negative) Urine Nitrite (Negative) Urine Bilirubin (Negative) Urine Urobilinogen (<2.0) mg/dL Ur Leukocyte Esterase (Negative) Disposition Clinical Impression: Pulmonary edema, Chronic renal failure syndrome, Fever Disposition: HOME SELF-CARE Instructions (If sedation given, give patient instructions): Pulmonary Edema (ED) Additional Instructions: Patient should be dialyzed as soon as possible Is patient prescribed a controlled substance at d/c from ED?: No Referrals: Jerod Braun MD [Primary Care Provider] - 1-2 days Time of Disposition: 09:59
--- NOTE | 2019-10-28 07:51 | XR ---
EXAMINATION TYPE: XR chest 2V DATE OF EXAM: 10/28/2019 COMPARISON: 10/09/2019 INDICATION: Fever TECHNIQUE: Frontal and lateral views of the chest are obtained. FINDINGS: The heart size is normal. The pulmonary vasculature is prominent. Diffuse increased lung markings are present bilaterally more focal infiltrate may be in the right low er lobe. Multiple Aleksandra B lines are present in the periphery. IMPRESSION: 1. Findings suggestive for pulmonary edema. Mild right lower lobe pneumonia is not excluded.
[2019-10-28 08:05] LABS: Basophils # (A) 0.1 k/uL (0-0.2); Basophils % (A) 1 %; Eosinophils # (A) 0.2 k/uL (0-0.7); Eosinophils % (A) 2 %; HGB 9.8 gm/dL (13.0-17.5); Hypochromasia Slight; Lymphocytes # (A) 0.6 k/uL (1.0-4.8); Lymphocytes % (A) 5 %; MCH 31.7 pg (25.0-35.0); MCHC 31.7 g/dL (31.0-37.0); MCV 100.1 fL (80.0-100.0); Macrocytosis Slight; Mean Platelet Volume 7.1; Monocytes # (A) 0.7 k/uL (0-1.0); Monocytes % (A) 6 %; Neutrophils # (A) 9.4 k/uL (1.3-7.7); Neutrophils % (A) 84 %; Platelet Count 404 k/uL (150-450); RDW 15.7 % (11.5-15.5); WBC 11.2 k/uL (3.8-10.6)
[2019-10-28 08:11] LABS: Appearance,Urine Clear (Clear); Bilirubin,Urine Negative (Negative); Blood,Urine Negative (Negative); Color,Urine Yellow; Glucose,Urine (UA) Negative (Negative); Ketones,Urine Negative (Negative); Leukocyte Esterase,Urine Negative (Negative); Nitrite,Urine Negative (Negative); Protein,Urine Negative (Negative); Specific Gravity,Urine 1.014 (1.001-1.035); Urobilinogen,Urine <2.0 mg/dL (<2.0)
[2019-10-28 08:14] LABS: INR 1.5 (<1.2); Partial Thromboplastin Time 38.9 sec (22.0-30.0); Prothrombin Time 14.6 sec (9.0-12.0)
[2019-10-28 08:30] VITALS: RESP 18
[2019-10-28 08:52] LABS: Albumin 3.8 g/dL (3.5-5.0); Calcium 8.7 mg/dL (8.4-10.2); Potassium 4.6 mmol/L (3.5-5.1); Total Bilirubin 1.2 mg/dL (0.2-1.3); Total Protein 7.3 g/dL (6.3-8.2)
[2019-10-28 10:22] VITALS: BP 118/64; PULSE 67; TEMP 98.6
== END 2019-10-28 10:15 | disposition home or self-care (01) ==
LOC: SUPCPDRO 06:57 → EC 06:57
DX: J81.1 Chronic pulmonary edema (principal); I13.0 Hypertensive heart and chronic kidney disease with heart failure and stage 1 through stage 4 chronic kidney disease, or unspecified chronic kidney disease; N18.4 Chronic kidney disease, stage 4 (severe); I50.9 Heart failure, unspecified; Z99.2 Dependence on renal dialysis; R50.9 Fever, unspecified; I48.91 Unspecified atrial fibrillation; Z88.8 Allergy status to other drugs, medicaments and biological substances; M19.90 Unspecified osteoarthritis, unspecified site; G25.81 Restless legs syndrome; G89.29 Other chronic pain; M54.5 Low back pain; Z95.5 Presence of coronary angioplasty implant and graft; Z79.899 Other long term (current) drug therapy; Z79.01 Long term (current) use of anticoagulants; Z79.82 Long term (current) use of aspirin
CPT/HCPCS: 36415; 71046; 80053; 81003; 83605; 83880; 85025; 85610; 85730; 87040; 93005; 99284

== ENCOUNTER → 2020-01-28 | Day surgery (SDC) | payer MEDICARE, OTHER ==
[2020-01-27 11:24] VITALS: BMI 38.4
[~2020-01-28] MED LIST: DEXAMETHASONE SOD PHOSPHATE 4 MG/ML 1 ML VIAL ONE; HEPARIN SODIUM,PORCINE 2,000 UNIT in SODIUM CHLORIDE 0.9% 500 ML 500 ML IRRIGATION ONE; HEPARIN SODIUM,PORCINE 5,000 UNIT/ML 1 ML VIAL ONE; KETAMINE 10 MG/ML 20 ML VIAL ONE; LACTATED RINGERS 1,000 ML IV ONE; MIDAZOLAM 2 MG/2 ML VIAL IV ONE; MIDAZOLAM 2 MG/2 ML VIAL ONE; PROPOFOL 10 MG/ML 20 ML VIAL IV ONE; ROPIVACAINE 5 MG/ML 30 ML VIAL ONE; SODIUM CHLORIDE 0.9% 500 ML 500 ML IV ONE; ceFAZolin 2,000 MG in SODIUM CHLORIDE 0.9% 500 ML IRRIGATION ONE; fentaNYL (PF) 50 MCG/ML 2 ML AMP IV ONE; fentaNYL (PF) 50 MCG/ML 2 ML AMP ONE
[2020-01-28 07:04] LABS: Basophils # (A) 0.2 k/uL (0-0.2); Basophils % (A) 2 %; Eosinophils # (A) 0.4 k/uL (0-0.7); Eosinophils % (A) 4 %; HCT 35.1 % (39.0-53.0); HGB 12.1 gm/dL (13.0-17.5); Lymphocytes # (A) 0.7 k/uL (1.0-4.8); Lymphocytes % (A) 8 %; MCH 32.6 pg (25.0-35.0); MCHC 34.6 g/dL (31.0-37.0); MCV 94.3 fL (80.0-100.0); Mean Platelet Volume 6.7; Monocytes # (A) 0.7 k/uL (0-1.0); Monocytes % (A) 9 %; Neutrophils # (A) 6.1 k/uL (1.3-7.7); Neutrophils % (A) 73 %; Platelet Count 415 k/uL (150-450); RBC 3.72 m/uL (4.30-5.90); RDW 15.4 % (11.5-15.5); WBC 8.4 k/uL (3.8-10.6)
[2020-01-28 07:21] LABS: Potassium 3.9 mmol/L (3.5-5.1)
--- NOTE | 2020-01-28 07:32 | P.HPIHPCON ---
History of Present Illness H&P Date: 01/28/20 Asad is a 74-year-old male who is here today for placement of long-term vascular access. He is currently getting dialysis through a right chest wall catheter. He denies any fevers chills nausea vomiting or issues otherwise. Consent for Procedure: I have explained the operation/procedure to the patient, including the risks, benefits, side effects, alternative therapies (including not receiving the proposed treatment or service), the likelihood of the patient achieving his/her goals, and potential recuperation problems for the procedure/sedation/analgesia, as well as any blood products, if indicated. I also explained to the patient the risks, benefits and side effects of the alternatives, as well as the risks related to not receiving the proposed procedure, care, treatment, or services. Past Medical History Past Medical History: Atrial Fibrillation, Coronary Artery Disease (CAD), Chest Pain / Angina, Heart Failure, Eye Disorder, Hypertension, Myocardial Infarction ([place]), Osteoarthritis (OA), Renal Disease Additional Past Medical History / Comment(s): Dialysis , , SAT, Past bra dycardia/hyperkalemia, CKD stage IV, UTIs, chronic lymphedema, bilateral lower leg cellulitis, e/weeping from R lower leg/keeps L lower leg in wraps for edema, RLS, chronic low back pain/bulging/herniated discs-sleeps in a recliner, past gout, indirect exposure to agent orange, cataracts, R index finger injury/surgery with limited ROM.. Last Myocardial Infarction Date:: 2009 History of Any Multi-Drug Resistant Organisms: None Reported Date of last positivie culture/infection: 04/02/2018 MDRO Source:: leg wound Past Surgical History: Heart Catheterization With Stent, Tonsillectomy Additional Past Surgical History / Comment(s): [id number] stents, rt hand sx to repair severed lig/tendons(age 20). current dialysis catheter Past Anesthesia/Blood Transfusion Reactions: No Reported Reaction Additional Past Anesthesia/Blood Transfusion Reaction / Comment(s): clausterphobia Date of Last Stent Placement:: 2009 Smoking Status: Never smoker - Past Family History Mother Family Medical History: Cancer Additional Family Medical History / Comment(s): breast cancer, heart problems was on warfarin(pt stated she bled out) Father Family Medical History: Coronary Artery Disease (CAD), Myocardial Infarction ([place]) Additional Family Medical History / Comment(s): Father had his 1st [place] in his 50s and then from his 2nd MO at the age of 74yrs. Medications and Allergies Home Medications Medication Instructions Recorded Confirmed Type Ranolazine [Ranexa] 1,000 mg PO BID@0800,2000 04/27/17 01/27/20 History Nitroglycerin Sl Tabs [Nitrostat] 0.4 mg SUBLINGUAL Q5M PRN 05/07/19 01/27/20 History rOPINIRole HCL [Requip] 1 mg PO TID@0000,1000,1700 05/07/19 01/27/20 History Folic Acid 1 mg PO 1700 08/12/19 01/27/20 History Polyethylene Glycol 3350 [Miralax] 17 gm PO DAILY 08/12/19 01/27/20 History Furosemide [Lasix] 60 mg PO TID@0000,0800,1600 09/27/19 01/27/20 History Gabapentin [Neurontin] 100 mg PO BID 09/27/19 01/27/20 History LORazepam [Ativan] 1 mg PO BID 09/27/19 01/27/20 History NIFEdipine XL [Procardia XL] 30 mg PO DAILY 09/27/19 01/27/20 History Terazosin [Hytrin] 8 mg PO HS@0000 09/27/19 01/27/20 History FLUoxetine HCL [PROzac] 20 mg PO QAM 10/28/19 01/27/20 History Isosorbide Mononitrate ER [Imdur] 30 mg PO DAILY 10/28/19 01/27/20 History oxyCODONE HCL [Roxicodone] 5 mg PO TID 10/28/19 01/27/20 History Apixaban [Eliquis] 2.5 mg PO BID 01/27/20 01/27/20 History Rosuvastatin [Crestor] 5 mg PO MOWEFR 01/27/20 01/27/20 History oxyCODONE HCL [Roxicodone] 10 mg PO 0000 01/27/20 01/27/20 History Allergies Allergy/AdvReac Type Severity Reaction Status Date / Time pravastatin Allergy Rash/Hives Verified 01/27/20 11:16 amlodipine AdvReac CONSTIPATIO Verified 01/27/20 11:16 N atenolol AdvReac MALE ED Verified 01/27/20 11:16 hydrochlorothiazide AdvReac RENAL Verified 01/27/20 11:16 IMPAIRMENT Surgical - Exam Vital Signs Temp Pulse Resp BP Pulse Ox 98.3 F 87 16 137/63 97 01/28/20 06:24 01/28/20 06:24 01/28/20 06:24 01/28/20 06:24 01/28/20 06:24 Gen. is a pleasant cooperative male in no acute distress. HEENT is normal cephalic, atraumatic, extraocular motion intact. Heart is regular. Lungs are clear bilaterally. Abdomen soft, nontender nondistended. Extremity show no clubbing, cyanosis or edema. Right chest/catheter is in place. Palpable radial pulse bilaterally. Normal mood and affect Results - Labs 01/28/20 06:47 01/28/20 06:47 Abnormal Lab Results - Last 24 Hours (Table) 01/28/20 01/28/20 Range/Units 06:47 06:47 RBC 3.72 L (4.30-5.90) m/uL Hgb 12.1 L (13.0-17.5) gm/dL Hct 35.1 L (39.0-53.0) % Lymphocytes # 0.7 L (1.0-4.8) k/uL BUN 36 H (9-20) mg/dL Creatinine 2.61 H (0.66-1.25) mg/dL Diabetes panel 01/28/20 Range/Units 06:47 Potassium 3.9 (3.5-5.1) mmol/L BUN 36 H (9-20) mg/dL Creatinine 2.61 H (0.66-1.25) mg/dL Pituitary panel 01/28/20 Range/Units 06:47 Potassium 3.9 (3.5-5.1) mmol/L BUN 36 H (9-20) mg/dL Creatinine 2.61 H (0.66-1.25) mg/dL Adrenal panel 01/28/20 Range/Units 06:47 Potassium 3.9 (3.5-5.1) mmol/L BUN 36 H (9-20) mg/dL Creatinine 2.61 H (0.66-1.25) mg/dL Assessment and Plan Assessment: End-stage renal disease, on dialysis Plan: Patient is here today and we'll plan to go forth with a left upper extremity loop forearm graft. He underwent vein mapping in the office which feel adequate sized basilic vein, but an inadequately sized cephalic vein therefore we will attempt a loop form graft first. He seemingly understands. All questions are answered. He is in agreement. He will be getting a regional block.
[2020-01-28 09:38] VITALS: TEMP 97.3
[2020-01-28 11:22] VITALS: RESP 16
[2020-01-28 11:26] VITALS: BP 115/66; PULSE 69
--- NOTE | 2020-01-28 21:12 | OP ---
OPERATIVE REPORT DATE OF SERVICE: 01/28/2020 PREOPERATIVE DIAGNOSIS: End-stage renal disease. POSTOPERATIVE DIAGNOSIS: End-stage renal disease. PROCEDURE: Left upper extremity loop AV graft. SURGEON: Tracy King D.O. SLIDE FORMING MACHINE OPERATOR: None. ANESTHESIA: Regional with monitored anesthesia care. ESTIMATED BLOOD LOSS: 20 mL IV FLUIDS: 300 COMPLICATIONS: None immediately apparent. CONDITION: Stable to Recovery. FINDINGS AND INDICATIONS: The patient is a 74-year-old male who was previously hospitalized and found to be in worsening renal insufficiency and found to have a need for dialysis. At that point, a tunneled dialysis catheter was placed. He underwent vein mapping in my office which revealed borderline size left upper extremity veins. Therefore it was decided he would best benefit from a loop forearm graft at this time. Risks and benefits were discussed with him and his , who seemingly understood and were willing to proceed as such. The patient was taken to the operative suite and placed in supine position. After appropriate anesthetic block and anesthesia, the left upper extremity was prepped and draped in the usual sterile fashion. A pre-procedural timeout was performed with all parties in agreement. The brachial artery pulse was palpated, and just distally to the antecubital fossa a transverse incision was made. The median cubital vein was identified and appeared to be of large size without any evidence of significant stenoses. It was dissected free and isolated proximally and distally. Attention was then turned toward the brachial artery. The fascia was transection was deepened to the level of the artery. The brachial artery was identified right at the level of the incision. At the inferior pole was the bifurcation to the brachial and ulnar arteries. All of these were isolated proximally and distally. At that point a counter incision was made after identifying the tract for the tunnel, and the 4 x 7 propaten graft was tunnelled. The patient was then heparinized with 3000 of heparin. Flow was occluded through the artery and arteriotomy was performed. An anastomosis using 6-0 Prolene was performed. The arteries were allowed to back bleed and then forward bleeding was achieved through the graft itself. Attention was then toward the distal anastomosis. The venotomy was performed and then the graft was cut to appropriate size. An anastomosis was created with 6-0 Prolene. Prior to completion of the anastomosis, the vein was allowed to back bleed and forward bleed. The graft was flushed. The anastomosis was completed and flow was resumed through the vessel as well as through the graft itself. Hemostasis was excellent at this point. The patient maintained a palpable radial pulse. The areas were irrigated with saline and the subcutaneous tissues were reapproximated with interrupted sutures of 3-0 Vicryl. The skin was reapproximated with running 4-0 Monocryl. A SurgiSupport dressing was placed with Kerlix and lightly wrapped Coban. The patient was allowed to awaken from anesthesia and transferred to Recovery in stable condition, having tolerated the procedure well. [id number] / IJN: [id number] / MTDD
--- NOTE | 2020-01-29 19:36 | P.ANPRN ---
Procedure Note - Anesthesia - Nerve Block Performed Left Supraclavicular Single Time Out Performed: Yes Date of Procedure: 01/28/20 Procedure Start Time: 07:15 Procedure Stop Time: :23 Location of Patient: PreOp Indication: Acute Post-Operative Pain, Requested by Surgeon Sedation Type: Sedate with meaningful contact maintained Preparation: Sterile Prep Position: Supine Needle Types: Pajunk Needle Gauge: 21 Ultrasound used to visualize needle placement: Yes Ultrasound used to observe medication spread: Yes Blood Aspirated: No Pain Paresthesia on Injection Noted: No Resistance on Injection: Normal Image Stored and Saved: Yes Events: Uneventful and Well Tolerated (ropi .5% 20cc plus dexamethsone 4mg)
== END ==
LOC: OR 05:44
PROVIDERS: ATTEND Surgery
DX: I13.2 Hypertensive heart and chronic kidney disease with heart failure and with stage 5 chronic kidney disease, or end stage renal disease (principal); N18.6 End stage renal disease; I48.91 Unspecified atrial fibrillation; I25.10 Atherosclerotic heart disease of native coronary artery without angina pectoris; I50.9 Heart failure, unspecified; Z86.69 Personal history of other diseases of the nervous system and sense organs; I25.2 Old myocardial infarction; M19.90 Unspecified osteoarthritis, unspecified site; E87.5 Hyperkalemia; I89.0 Lymphedema, not elsewhere classified; R60.0 Localized edema; G25.81 Restless legs syndrome; G89.29 Other chronic pain; M54.5 Low back pain; M51.9 Unspecified thoracic, thoracolumbar and lumbosacral intervertebral disc disorder; M10.9 Gout, unspecified; F40.240 Claustrophobia; K08.89 Other specified disorders of teeth and supporting structures; E78.5 Hyperlipidemia, unspecified; F32.9 Major depressive disorder, single episode, unspecified; Z99.2 Dependence on renal dialysis; Z87.440 Personal history of urinary (tract) infections; Z87.2 Personal history of diseases of the skin and subcutaneous tissue; Z77.098 Contact with and (suspected) exposure to other hazardous, chiefly nonmedicinal, chemicals; Z98.41 Cataract extraction status, right eye; Z98.42 Cataract extraction status, left eye; Z87.828 Personal history of other (healed) physical injury and trauma; Z98.890 Other specified postprocedural states; Z86.19 Personal history of other infectious and parasitic diseases; Z95.5 Presence of coronary angioplasty implant and graft; Z90.89 Acquired absence of other organs; Z79.899 Other long term (current) drug therapy; Z79.891 Long term (current) use of opiate analgesic; Z79.01 Long term (current) use of anticoagulants; Z88.8 Allergy status to other drugs, medicaments and biological substances; Z80.3 Family history of malignant neoplasm of breast; Z82.49 Family history of ischemic heart disease and other diseases of the circulatory system
CPT/HCPCS: 64415; 76942; 82565; 84132; 84520; 85025; 36830; L8670; J2250; J1644; J1100; J0690 ×2; J3010; J2795; J2704

== ENCOUNTER 2020-05-21 14:18 | Emergency (ER) | payer OTHER, MEDICARE ==
[2020-05-21 14:27] VITALS: RESP 18
--- NOTE | 2020-05-21 15:05 | ED ---
Extremity Problem HPI - General Chief complaint: Extremity Problem,Nontraumatic Stated complaint: Leg Pain Source: patient, RN notes reviewed Mode of arrival: ambulatory Limitations: no limitations - History of Present Illness Initial comments: Patient is a 75-year-old male that presents to the emergency room complaining of bilateral lower extremity tenderness and erythema skin changes. He notes that he does have a history of congestive heart failure and end-stage renal disease which is dialysis for several times a week. He gets dialysis every Sunday and Sunday. He did complete history yesterday and pedal at dialysis informed that he might want to get his legs checked out. notes that he's had some skin thickening and cracking issues with a honey colored crust and skin flaking. Patient states that the pain isn't too bad while resting without anyth ing touching it. He doesn't know his feet are touched it is extremely painful to the light touch. He denied any fatigue weakness lightheadedness chest pain shortness of breath headache nausea vomiting diarrhea constipation - Related Data Home Medications Medication Instructions Recorded Confirmed Ranolazine [Ranexa] 1,000 mg PO BID@0800,2000 04/27/17 01/28/20 Nitroglycerin Sl Tabs [Nitrostat] 0.4 mg SUBLINGUAL Q5M PRN 05/07/19 01/28/20 rOPINIRole HCL [Requip] 1 mg PO TID@0000,1000,1700 05/07/19 01/28/20 Folic Acid 1 mg PO 1700 08/12/19 01/28/20 Polyethylene Glycol 3350 [Miralax] 17 gm PO DAILY 08/12/19 01/28/20 Furosemide [Lasix] 60 mg PO TID@0000,0800,1600 09/27/19 01/28/20 Gabapentin [Neurontin] 100 mg PO BID 09/27/19 01/28/20 LORazepam [Ativan] 1 mg PO BID 09/27/19 01/28/20 NIFEdipine XL [Procardia XL] 30 mg PO DAILY 09/27/19 01/28/20 Terazosin [Hytrin] 8 mg PO HS@0000 09/27/19 01/27/20 FLUoxetine HCL [PROzac] 20 mg PO QAM 10/28/19 01/28/20 Isosorbide Mononitrate ER [Imdur] 30 mg PO DAILY 10/28/19 01/28/20 oxyCODONE HCL [Roxicodone] 5 mg PO TID 10/28/19 01/28/20 Apixaban [Eliquis] 2.5 mg PO BID 01/27/20 01/27/20 Rosuvastatin [Crestor] 5 mg PO MOWEFR 01/27/20 01/28/20 oxyCODONE HCL [Roxicodone] 10 mg PO 0000 01/27/20 01/28/20 Previous Rx's Medication Instructions Recorded Cephalexin [Keflex] 500 mg PO Q6HR 10 Days #40 cap 05/21/20 Doxycycline Monohydrate [Monodox] 100 mg PO Q12HR #20 cap 05/21/20 Allergies Allergy/AdvReac Type Severity Reaction Status Date / Time pravastatin Allergy Rash/Hives Verified 05/21/20 14:27 amlodipine AdvReac CONSTIPATIO Verified 05/21/20 14:27 N atenolol AdvReac MALE ED Verified 05/21/20 14:27 hydrochlorothiazide AdvReac RENAL Verified 05/21/20 14:27 IMPAIRMENT Review of Systems ROS Statement: Those systems with pertinent positive or pertinent negative responses have been documented in the HPI. ROS Other: All systems not noted in ROS Statement are negative. Past Medical History Past Medical History: Atrial Fibrillation, Coronary Artery Disease (CAD), Chest Pain / Angina, Heart Failure, Eye Disorder, Hypertension, Myocardial Infarction (CA), Osteoarthritis (OA), Renal Disease Additional Past Medical History / Comment(s): Dialysis , , SAT, Past bradycardia/hyperkalemia, CKD stage IV, UTIs, chronic lymphedema, bilateral lower leg cellulitis, e/weeping from R lower leg/keeps L lower leg in wraps for edema, RLS, chronic low back pain/bulging/herniated discs-sleeps in a recliner, past gout, indirect exposure to agent orange, cataracts, R index finger injury/surgery with limited ROM.. Last Myocardial Infarction Date:: 2009 History of Any Multi-Drug Resistant Organisms: None Reported Date of last positivie culture/infection: 04/02/2018 MDRO Source:: leg wound Past Surgical History: Heart Catheterization With Stent, Tonsillectomy Additional Past Surgical History / Comment(s): [id number] stents, rt hand sx to repair severed lig/tendons(age 20). current dialysis catheter Past Anesthesia/Blood Transfusion Reactions: No Reported Reaction Additional Past Anesthesia/Blood Transfusion Reaction / Comment(s): clausterphobia Date of Last Stent Placement:: 2009 Past Psychological History: Depression Smoking Status: Never smoker Past Alcohol Use History: None Reported Past Drug Use History: None Reported - Past Family History Mother Family Medical History: Cancer Additional Family Medical History / Comment(s): breast cancer, heart problems was on warfarin(pt stated she bled out) Father Family Medical History: Coronary Artery Disease (CAD), Myocardial Infarction (CA) Additional Family Medical History / Comment(s): Father had his 1st CA in his 50s and then from his 2nd CA at the age of 74yrs. General Exam Limitations: no limitations General appearance: alert, in no apparent distress, obese Head exam: Present: atraumatic, normocephalic, normal inspection Eye exam: Present: normal appearance, PERRL, EOMI. Absent: scleral icterus, conjunctival injection, periorbital swelling Neck exam: Present: normal inspection. Absent: tenderness, meningismus, lymphadenopathy Respiratory exam: Present: normal lung sounds bilaterally. Absent: respiratory distress, wheezes, rales, rhonchi, stridor Cardiovascular Exam: Present: regular rate, normal rhythm, normal heart sounds. Absent: systolic murmur, diastolic murmur, rubs, gallop, clicks GI/Abdominal exam: Present: soft, normal bowel sounds. Absent: distended, tenderness, guarding, rebound, rigid Extremities exam: Present: normal inspection, full ROM, tenderness (Bilateral feet and lower leg tender severely to light touch and palpation), normal capillary refill. Absent: pedal edema, joint swelling, calf tenderness Neurological exam: Present: alert, oriented X3, CN II-XII intact Psychiatric exam: Present: normal affect, normal mood Skin exam: Present: warm, dry, intact, normal color, erythema (Bilateral lower extremities from approximately 3 inches below the knee down circumferential), other (Thickening of skin on the feet and ankle crease with flaky skin and honey-colored crust, skin cracking.). Absent: rash Course Vital Signs 05/21/20 14:21 Temperature 97.9 F Pulse Rate 85 Respiratory 18 Rate Blood Pressure 112/59 O2 Sat by Pulse 90 L Oximetry Medical Decision Making - Medical Decision Making 75-year-old male complaining of bilateral lower extremity pain tenderness and swelling. Labs, EKG ordered. 2 g Rocephin ordered. Labs unremarkable with stable levels compared to previous exams. Case discussed with Dr. Weeks, patient can discharge home with antibiotic therapy. - Lab Data Result diagrams: 05/21/20 15:03 05/21/20 15:03 Lab Results 05/21/20 05/21/20 05/21/20 Range/Units 15:03 15:03 15:03 WBC 9.0 (3.8-10.6) k/uL RBC 3.40 L (4.30-5.90) m/uL Hgb 11.3 L (13.0-17.5) gm/dL Hct 33.2 L (39.0-53.0) % MCV 97.8 (80.0-100.0) fL MCH 33.2 (25.0-35.0) pg MCHC 33.9 (31.0-37.0) g/dL RDW 15.2 (11.5-15.5) % Plt Count 318 (150-450) k/uL MPV 7.0 Neutrophils % 72 % Lymphocytes % 9 % Monocytes % 10 % Eosinophils % 5 % Basophils % 1 % Neutrophils # 6.5 (1.3-7.7) k/uL Lymphocytes # 0.8 L (1.0-4.8) k/uL Monocytes # 0.9 (0-1.0) k/uL Eosinophils # 0.5 (0-0.7) k/uL Basophils # 0.1 (0-0.2) k/uL Sodium 131 L (137-145) mmol/L Potassium 4.1 (3.5-5.1) mmol/L Chloride 91 L (98-107) mmol/L Carbon Dioxide 28 (22-30) mmol/L Anion Gap 12 mmol/L BUN 51 H (9-20) mg/dL Creatinine 2.96 H (0.66-1.25) mg/dL Est GFR (CKD-EPI)AfAm 23 (>60 ml/min/1.73 sqM) Est GFR (CKD-EPI)NonAf 20 (>60 ml/min/1.73 sqM) Glucose 105 H (74-99) mg/dL Plasma Lactic Acid Harman 1.2 (0.7-2.0) mmol/L Calcium 9.0 (8.4-10.2) mg/dL Total Bilirubin 0.8 (0.2-1.3) mg/dL AST 18 (17-59) U/L ALT 7 (4-49) U/L Alkaline Phosphatase 89 (38-126) U/L Total Protein 8.4 H (6.3-8.2) g/dL Albumin 4.1 (3.5-5.0) g/dL - EKG Data -: EKG Interpreted by Me EKG Comments: Ventricular rate 75 bpm, NE interval *milliseconds, QRS duration 96 ms, QT/QTc 424/473 ms, PareT axes */-26/59. Atrial fibrillation, nonspecific ST and T-wave abnormality, prolonged QT, abnormal ECG. Disposition Clinical Impression: Cellulitis of both lower extremities Disposition: HOME SELF-CARE Condition: Stable Instructions (If sedation given, give patient instructions): Cellulitis (ED) Additional Instructions: Please return to the Emergency Department if symptoms worsen or any other concerns. Follow-up primary care 1-3 days. UA referral for dermatology. Take antibiotics as prescribed until complete. Monitor for any fevers, shortness of breath or other Covid like symptoms. If these arise please return. Prescriptions: Cephalexin [Keflex] 500 mg PO Q6HR 10 Days #40 cap Doxycycline Monohydrate [Monodox] 100 mg PO Q12HR #20 cap Is patient prescribed a controlled substance at d/c from ED?: No Referrals: Nonstaff,Physician [Primary Care Provider] - 1-2 days Time of Disposition: 16:30
[2020-05-21 15:24] LABS: Basophils # (A) 0.1 k/uL (0-0.2); Basophils % (A) 1 %; Eosinophils # (A) 0.5 k/uL (0-0.7); Eosinophils % (A) 5 %; HCT 33.2 % (39.0-53.0); HGB 11.3 gm/dL (13.0-17.5); Lymphocytes # (A) 0.8 k/uL (1.0-4.8); Lymphocytes % (A) 9 %; MCH 33.2 pg (25.0-35.0); MCHC 33.9 g/dL (31.0-37.0); MCV 97.8 fL (80.0-100.0); Monocytes # (A) 0.9 k/uL (0-1.0); Monocytes % (A) 10 %; Neutrophils # (A) 6.5 k/uL (1.3-7.7); Neutrophils % (A) 72 %; Platelet Count 318 k/uL (150-450); RDW 15.2 % (11.5-15.5)
[2020-05-21 15:34] LABS: Albumin 4.1 g/dL (3.5-5.0); Potassium 4.1 mmol/L (3.5-5.1); Total Bilirubin 0.8 mg/dL (0.2-1.3); Total Protein 8.4 g/dL (6.3-8.2)
[2020-05-21] MEDS ORDERED: MORPHINE SULFATE 2 MG/ML SYRINGE IVP STA (16:41)
[2020-05-21 17:39] VITALS: BP 132/62; PULSE 84; TEMP 97.5
== END 2020-05-21 17:39 | disposition home or self-care (01) ==
LOC: EC 14:18
DX: L03.116 Cellulitis of left lower limb (principal); L03.115 Cellulitis of right lower limb; I13.0 Hypertensive heart and chronic kidney disease with heart failure and stage 1 through stage 4 chronic kidney disease, or unspecified chronic kidney disease; I50.9 Heart failure, unspecified; N18.4 Chronic kidney disease, stage 4 (severe); E66.9 Obesity, unspecified; F32.9 Major depressive disorder, single episode, unspecified; I48.91 Unspecified atrial fibrillation; I25.10 Atherosclerotic heart disease of native coronary artery without angina pectoris; I25.2 Old myocardial infarction; M19.90 Unspecified osteoarthritis, unspecified site; Z79.899 Other long term (current) drug therapy; Z68.39 Body mass index [BMI] 39.0-39.9, adult
CPT/HCPCS: 36415; 93005; 80053; 83605; 85025; 87040; 99284; 96365; 96375; J0696; J2270

== ENCOUNTER 2020-05-30 12:30 | Inpatient (IN) | payer OTHER, MEDICARE ==
[2020-05-30] MEDS ORDERED: VANCOMYCIN IV PER PHARMACY 1 EACH MISC MISCELLANE PRN (13:32)
[2020-05-30] MEDS ORDERED: AMPICILLIN-SULBACTAM 3 GM in SODIUM CHLORIDE 0.9% 100 ML IVPB STA (13:32)
[2020-05-30] MEDS ORDERED: VANCOMYCIN 1,750 MG in SODIUM CHLORIDE 0.9% 500 ML 500 ML IVPB ONE (14:00)
[2020-05-30 14:31] LABS: Basophils # (A) 0.1 k/uL (0-0.2); Basophils % (A) 2 %; Eosinophils # (A) 0.1 k/uL (0-0.7); Eosinophils % (A) 2 %; HCT 34.9 % (39.0-53.0); HGB 11.4 gm/dL (13.0-17.5); Lymphocytes # (A) 0.2 k/uL (1.0-4.8); Lymphocytes % (A) 4 %; MCH 33.1 pg (25.0-35.0); MCHC 32.7 g/dL (31.0-37.0); MCV 101.2 fL (80.0-100.0); Macrocytosis Slight; Monocytes # (A) 0.6 k/uL (0-1.0); Monocytes % (A) 10 %; Neutrophils % (A) 79 %; Platelet Count 350 k/uL (150-450); RBC 3.45 m/uL (4.30-5.90); RDW 15.3 % (11.5-15.5); WBC 6.3 k/uL (3.8-10.6)
[2020-05-30 15:08] LABS: Albumin 4.3 g/dL (3.5-5.0); C Reactive Protein 44.9 mg/L (<10.0); Calcium 9.4 mg/dL (8.4-10.2); Potassium 4.6 mmol/L (3.5-5.1); Total Bilirubin 0.8 mg/dL (0.2-1.3)
--- NOTE | 2020-05-30 15:59 | ED ---
Skin/Abscess/FB HPI - General Chief complaint: Skin/Abscess/Foreign Body Stated complaint: cellulitis Time Seen by Provider: 05/30/20 12:30 Source: patient Mode of arrival: ambulatory Limitations: no limitations - History of Present Illness Initial comments: Patient is a 75-year-old male with past medical history of A. fib, coronary disease, hypertension who presents to the emergency department for worsening lower extremity cellulitis. Patient was seen in the emergency department on May 21 for similar complaints. He was placed on doxycycline and Keflex and sent home. He did receive 2 g of Rocephin in the emergency department. He reports he has been taking antibiotics as directed however continues to have swelling, warmth and drainage from his lower extremities. Patient does have chronic venous stasis however states that his legs have become so swollen and painful. He denies a history of DVT or PE. He is on Ahlquist for his A. fib and denies missing any doses. Patient also has end-stage renal disease and is on hemodialysis on Tuesdays and Saturdays. Denies missing any treatments. He denies any chest pain or shortness of breath. does report low-grade fevers at home. No other alleviating, precipitating or modifying factors - Related Data Home Medications Medication Instructions Recorded Confirmed Ranolazine [Ranexa] 1,000 mg PO BID@1000,2200 04/27/17 06/04/20 Nitroglycerin Sl Tabs [Nitrostat] 0.4 mg SL Q5M PRN 05/07/19 06/04/20 rOPINIRole HCL [Requip] 1 mg PO TID@0000,1000,1700 05/07/19 06/04/20 Folic Acid 1 mg PO DAILY@169908/12/19 06/04/20 Polyethylene Glycol 3350 [Miralax] 17 gm PO HS@0000 08/12/19 06/04/20 Furosemide [Lasix] 60 mg PO TID@0000,1000,1700 09/27/19 06/04/20 Gabapentin [Neurontin] 100 mg PO BID@1000,2200 09/27/19 06/04/20 LORazepam [Ativan] 1 mg PO BID@1000,2200 09/27/19 06/04/20 NIFEdipine XL [Procardia XL] 30 mg PO DAILY@1000 09/27/19 06/04/20 Terazosin [Hytrin] 8 mg PO HS@0000 09/27/19 06/04/20 Isosorbide Mononitrate ER [Imdur] 30 mg PO DAILY@1000 10/28/19 06/04/20 oxyCODONE HCL [Roxicodone] 10 mg PO HS@0000 10/28/19 06/04/20 Apixaban [Eliquis] 2.5 mg PO BID@1000,2200 01/27/20 06/04/20 Rosuvastatin [Crestor] 5 mg PO MOWEFR@1700 01/27/20 06/04/20 oxyCODONE HCL [Roxicodone] 5 mg PO BID@1000,1700 01/27/20 06/04/20 Previous Rx's Medication Instructions Recorded Ascorbic Acid [Vitamin C] 1,000 mg PO DAILY 30 Days #30 06/03/20 tablet Cholecalciferol [Vitamin D3 (25 100 mcg PO DAILY 30 Days #30 tablet 06/03/20 Mcg = 1000 Iu)] Clindamycin [Cleocin] 450 mg PO Q8H 5 Days #15 cap 06/03/20 Dexamethasone [Decadron] 6 mg PO DAILY 7 Days #7 tablet 06/03/20 Melatonin 5 mg PO HS 30 Days #30 tablet 06/03/20 Nystatin 100,000Unit/gm Cream 1 applic TOPICAL BID 7 Days #1 06/03/20 [Mycostatin Cream] cream Triamcinolone 0.1% Cream [Kenalog 1 applicatio TOPICAL BID 7 Days #1 06/03/20 0.1% Cream] tube Zinc Sulfate [Orazinc] 220 mg PO DAILY 30 Days #30 capsule 06/03/20 Allergies Allergy/AdvReac Type Severity Reaction Status Date / Time pravastatin Allergy Rash/Hives Verified 06/04/20 17:01 amlodipine AdvReac CONSTIPATIO Verified 06/04/20 17:01 N atenolol AdvReac MALE ED Verified 06/04/20 17:01 hydrochlorothiazide AdvReac RENAL Verified 06/04/20 17:01 IMPAIRMENT Review of Systems ROS Statement: Those systems with pertinent positive or pertinent negative responses have been documented in the HPI. ROS Other: All systems not noted in ROS Statement are negative. Past Medical History Past Medical History: Atrial Fibrillation, Coronary Artery Disease (CAD), Chest Pain / Angina, Heart Failure, Eye Disorder, Hypertension, Myocardial Infarction (CT), Osteoarthritis (OA), Renal Disease Additional Past Medical History / Comment(s): Dialysis TU, TH, SAT, Past bradyca rdia/hyperkalemia, CKD stage IV, UTIs, chronic lymphedema, bilateral lower leg cellulitis, e/weeping from R lower leg/keeps L lower leg in wraps for edema, RLS, chronic low back pain/bulging/herniated discs-sleeps in a recliner, past gout, indirect exposure to agent orange, cataracts, R index finger injury/surgery with limited ROM.. Last Myocardial Infarction Date:: 2009 History of Any Multi-Drug Resistant Organisms: None Reported Date of last positivie culture/infection: 04/02/2018 MDRO Source:: leg wound Past Surgical History: Heart Catheterization With Stent, Tonsillectomy Additional Past Surgical History / Comment(s): [id number] stents, rt hand sx to repair severed lig/tendons(age 20). current dialysis catheter Past Anesthesia/Blood Transfusion Reactions: No Reported Reaction Additional Past Anesthesia/Blood Transfusion Reaction / Comment(s): clausterphobia Date of Last Stent Placement:: 2009 Past Psychological History: Depression Smoking Status: Never smoker Past Alcohol Use History: None Reported Past Drug Use History: None Reported - Past Family History Mother Family Medical History: Cancer Additional Family Medical History / Comment(s): breast cancer, heart problems was on warfarin(pt stated she bled out) Father Family Medical History: Coronary Artery Disease (CAD), Myocardial Infarction (CT) Additional Family Medical History / Comment(s): Father had his 1st CT in his 50s and then from his 2nd CT at the age of 74yrs. General Exam Limitations: no limitations General appearance: alert, in no apparent distress, obese Head exam: Present: atraumatic, normocephalic, normal inspection Eye exam: Present: normal appearance, PERRL, EOMI. Absent: scleral icterus, conjunctival injection, periorbital swelling ENT exam: Present: normal exam, mucous membranes moist Neck exam: Present: normal inspection. Absent: tenderness, meningismus, lymphad enopathy Respiratory exam: Present: normal lung sounds bilaterally. Absent: respiratory distress, wheezes, rales, rhonchi, stridor Cardiovascular Exam: Present: regular rate, normal rhythm, normal heart sounds. Absent: systolic murmur, diastolic murmur, rubs, gallop, clicks GI/Abdominal exam: Present: soft, normal bowel sounds. Absent: distended, tenderness, guarding, rebound, rigid Extremities exam: Present: full ROM, tenderness (b/l shins with redness, brawny edema), normal capillary refill, pedal edema. Absent: joint swelling, calf tenderness Back exam: Present: normal inspection Neurological exam: Present: alert, oriented X3, CN II-XII intact Psychiatric exam: Present: normal affect, normal mood Skin exam: Present: warm, dry, intact, normal color. Absent: rash Course Vital Signs 05/30/20 05/30/20 05/30/20 12:30 14:00 16:30 Temperature 100.2 F H 99.2 F Pulse Rate 81 87 86 Respiratory 16 20 20 Rate Blood Pressure 118/63 137/77 O2 Sat by Pulse 95 96 96 Oximetry 05/30/20 05/30/20 19:00 20:02 Temperature 99.0 F Pulse Rate 88 92 Respiratory 18 18 Rate Blood Pressure 150/80 141/62 O2 Sat by Pulse 97 96 Oximetry Medical Decision Making - Medical Decision Making Upon arrival patient is placed into room 29. There are history and physical exam was performed. Patient has failed outpatient treatment for cellulitis at this time. Laboratory studies were conducted. I did insert an IV and the patient was started on Unasyn and Vanco. Laboratory studies are reviewed. Covid is detected however the patient does not demonstrate any acute symptoms of this. I did recommend hospital admission as the patient is failing outpatient treatment. I will consult infectious disease and nephrology. Patient agreed to the treatment plan. I spoke with Dr. Acosta who agreed to admit the patient. Patient is currently awaiting a bed on the floor - Lab Data Result diagrams: 06/02/20 06:27 06/02/20 06:27 Lab Results 05/30/20 05/30/20 05/30/20 Range/Units 14:18 14:18 14:18 WBC 6.3 (3.8-10.6) k/uL RBC 3.45 L (4.30-5.90) m/uL Hgb 11.4 L (13.0-17.5) gm/dL Hct 34.9 L (39.0-53.0) % MCV 101.2 H (80.0-100.0) fL MCH 33.1 (25.0-35.0) pg MCHC 32.7 (31.0-37.0) g/dL RDW 15.3 (11.5-15.5) % Plt Count 350 (150-450) k/uL MPV 7.0 Neutrophils % 79 % Lymphocytes % 4 % Monocytes % 10 % Eosinophils % 2 % Basophils % 2 % Neutrophils # 5.0 (1.3-7.7) k/uL Lymphocytes # 0.2 L (1.0-4.8) k/uL Monocytes # 0.6 (0-1.0) k/uL Eosinophils # 0.1 (0-0.7) k/uL Basophils # 0.1 (0-0.2) k/uL Macrocytosis Slight Sodium 133 L (137-145) mmol/L Potassium 4.6 (3.5-5.1) mmol/L Chloride 93 L (98-107) mmol/L Carbon Dioxide 28 (22-30) mmol/L Anion Gap 12 mmol/L BUN 41 H (9-20) mg/dL Creatinine 2.63 H (0.66-1.25) mg/dL Est GFR (CKD-EPI)AfAm 27 (>60 ml/min/1.73 sqM) Est GFR (CKD-EPI)NonAf 23 (>60 ml/min/1.73 sqM) Glucose 104 H (74-99) mg/dL Plasma Lactic Acid Harman (0.7-2.0) mmol/L Calcium 9.4 (8.4-10.2) mg/dL Total Bilirubin 0.8 (0.2-1.3) mg/dL AST 30 (17-59) U/L ALT 12 (4-49) U/L Alkaline Phosphatase 93 (38-126) U/L C-Reactive Protein 44.9 H (<10.0) mg/L NT-Pro-B Natriuret Pep 8890 pg/mL Total Protein 9.0 H (6.3-8.2) g/dL Albumin 4.3 (3.5-5.0) g/dL 05/30/20 Range/Units 14:18 WBC (3.8-10.6) k/uL RBC (4.30-5.90) m/uL Hgb (13.0-17.5) gm/dL Hct (39.0-53.0) % MCV (80.0-100.0) fL MCH (25.0-35.0) pg MCHC (31.0-37.0) g/dL RDW (11.5-15.5) % Plt Count (150-450) k/uL MPV Neutrophils % % Lymphocytes % % Monocytes % % Eosinophils % % Basophils % % Neutrophils # (1.3-7.7) k/uL Lymphocytes # (1.0-4.8) k/uL Monocytes # (0-1.0) k/uL Eosinophils # (0-0.7) k/uL Basophils # (0-0.2) k/uL Macrocytosis Sodium (137-145) mmol/L Potassium (3.5-5.1) mmol/L Chloride (98-107) mmol/L Carbon Dioxide (22-30) mmol/L Anion Gap mmol/L BUN (9-20) mg/dL Creatinine (0.66-1.25) mg/dL Est GFR (CKD-EPI)AfAm (>60 ml/min/1.73 sqM) Est GFR (CKD-EPI)NonAf (>60 ml/min/1.73 sqM) Glucose (74-99) mg/dL Plasma Lactic Acid Hraman 1.3 (0.7-2.0) mmol/L Calcium (8.4-10.2) mg/dL Total Bilirubin (0.2-1.3) mg/dL AST (17-59) U/L ALT (4-49) U/L Alkaline Phosphatase (38-126) U/L C-Reactive Protein (<10.0) mg/L NT-Pro-B Natriuret Pep pg/mL Total Protein (6.3-8.2) g/dL Albumin (3.5-5.0) g/dL Disposition Clinical Impression: ESRD (end stage renal disease), Cellulitis of both lower extremities Disposition: ADMITTED IP TO THIS [facility] Condition: Stable Is patient prescribed a controlled substance at d/c from ED?: No Decision to Admit Reason: Admit from EC Decision Date: 05/30/20 Decision Time: 15:59
[2020-05-30] MEDS ORDERED: NALOXONE 0.4 MG/ML 1 ML VIAL IV PRN (16:00)
[2020-05-31] MEDS: FUROSEMIDE 20 MG TAB PO SCH ×3 (00:52→16:47)
[2020-05-31] MEDS ORDERED: MAG HYDROX/AL HYDROX/SIMETH 30 ML CUP PO PRN (01:41)
--- NOTE | 2020-05-31 01:41 | P.HPIM ---
History of Present Illness H&P Date: 05/30/20 Chief Complaint: bilateral leg swelling, and weeping 75 year old male with Afib on eliquis, ESRD on HD TTS, chronic low back pain , chronic bilateral leg swelling patient comes in due to chronic bilateral leg edema and weeping wounds, he was here about 10 days ago , diagnosed with cellulitis and was started on PO antibiotics. however, he reports no significant difference despite taking his medications he comes back today reporting increase weeping of fluids off his bilateral legs soiling clothing and his shoes. he denies any fever, or pain in his legs. he claims that they look the same from before with no recent change . he denies any injuries. he was admitted for evaluation and ruling out cellulitis. he has been having this problem for many years he tested positive for COVID , but denies any respiratory symptoms , fever , nausea , vomiting, or diarrhea . he is not requiring any supplemental oxygen Review of Systems Pertinent positives as noted in HPI. All other systems were reviewed and are negative Past Medical History Past Medical History: Atrial Fibrillation, Coronary Artery Disease (CAD), Chest Pain / Angina, Heart Failure, Eye Disorder, Hypertension, Myocardial Infarction (RI), Osteoarthritis (OA), Renal Disease Additional Past Medical History / Comment(s): Dialysis , , SUN, Past bradycardia/hyperkalemia, UTIs, chronic lymphedema, bilateral lower leg cellulitis,RLS, chronic low back pain/bulging/herniated discs-sleeps in a recliner, past gout, indirect exposure to agent orange, cataracts, R index finger injury/surgery with limited ROM.. Last Myocardial Infarction Date:: 2009 History of Any Multi-Drug Resistant Organisms: None Reported Date of last positivie culture/infection: 04/02/2018 MDRO Source:: leg wound Past Surgical History: Heart Catheterization With Stent, Tonsillectomy Additional Past Surgical History / Comment(s): [id number] stents, rt hand sx to repair severed lig/tendons(age 20). current dialysis catheter Past Anesthesia/Blood Transfusion Reactions: No Reported Reaction Additional Past Anesthesia/Blood Transfusion Reaction / Comment(s): clausterphobia Date of Last Stent Placement:: 2009 Past Psychological History: Depression Smoking Status: Never smoker Past Alcohol Use History: None Reported Past Drug Use History: None Reported - Past Family History Mother Family Medical History: Cancer Additional Family Medical History / Comment(s): breast cancer, heart problems was on warfarin(pt stated she bled out) Father Family Medical History: Coronary Artery Disease (CAD), Myocardial Infarction (RI) Additional Family Medical History / Comment(s): Father had his 1st RI in his 50s and then from his 2nd RI at the age of 74yrs. Medications and Allergies Home Medications Medication Instructions Recorded Confirmed Type Ranolazine [Ranexa] 1,000 mg PO BID@1000,2200 04/27/17 05/30/20 History Nitroglycerin Sl Tabs [Nitrostat] 0.4 mg SL Q5M PRN 05/07/19 05/30/20 History rOPINIRole HCL [Requip] 1 mg PO TID@0000,1000,1700 05/07/19 05/30/20 History Folic Acid 1 mg PO DAILY@169908/12/19 05/30/20 History Polyethylene Glycol 3350 [Miralax] 17 gm PO HS@0000 08/12/19 05/30/20 History Furosemide [Lasix] 60 mg PO TID@0000,1000,1700 09/27/19 05/30/20 History Gabapentin [Neurontin] 100 mg PO BID@1000,2200 09/27/19 05/30/20 History LORazepam [Ativan] 1 mg PO BID@1000,0 09/27/19 05/30/20 History NIFEdipine XL [Procardia XL] 30 mg PO DAILY@1000 09/27/19 05/30/20 History Terazosin [Hytrin] 8 mg PO HS@0000 09/27/19 05/30/20 History FLUoxetine HCL [PROzac] 20 mg PO DAILY@1000 10/28/19 05/30/20 History Isosorbide Mononitrate ER [Imdur] 30 mg PO DAILY@1000 10/28/19 05/30/20 History oxyCODONE HCL [Roxicodone] 10 mg PO HS@0000 10/28/19 05/30/20 History Apixaban [Eliquis] 2.5 mg PO BID@1000,2200 01/27/20 05/30/20 History Rosuvastatin [Crestor] 5 mg PO MOWEFR@1700 01/27/20 05/30/20 History oxyCODONE HCL [Roxicodone] 5 mg PO BID@1000,1700 01/27/20 05/30/20 History Cephalexin [Keflex] 500 mg PO Q6HR 10 Days #40 cap 05/21/20 05/30/20 Rx Doxycycline [Vibramycin] 100 mg PO BID 10 Days #20 capsule 05/21/20 05/30/20 Rx Allergies Allergy/AdvReac Type Severity Reaction Status Date / Time pravastatin Allergy Rash/Hives Verified 05/30/20 16:01 amlodipine AdvReac CONSTIPATIO Verified 05/30/20 16:01 N atenolol AdvReac MALE ED Verified 05/30/20 16:01 hydrochlorothiazide AdvReac RENAL Verified 05/30/20 16:01 IMPAIRMENT Physical Exam Vitals: Vital Signs Temp Pulse Resp BP Pulse Ox 05/30/20 20:02 99.0 F 92 18 141/62 96 05/30/20 19:00 88 18 150/80 97 05/30/20 16:30 99.2 F 86 20 137/77 96 05/30/20 14:00 87 20 96 05/30/20 12:30 100.2 F H 81 16 118/63 95 Intake and Output 05/30/20 05/30/20 05/30/20 06:59 14:59 22:59 Other: Weight 115.666 kg Constitutional: No acute distress, conversant, pleasant, on room air Eyes: Anicteric sclerae, moist conjunctiva, Pupils equal round reactive to light ENMT: NC/AT Oropharynx clear, no erythema, or exudates Neck: Supple, FROM, no masses, or JVD No carotid bruits No thyromegaly Lungs: Clear to auscultation Clear to percussion Normal respiratory effort, no accessory muscle use Cardiovascular: Heart regular in rate and rhythm, No murmurs, gallops, or rubs No peripheral edema Abdominal: Soft Nontender, no guarding, rebound or rigidity Abdomen moving with respiration Normoactive bowel sounds obese limiting exam Skin: chronic bilateral skin changes over the legs, with erythema , no induration , no tenderness to palpation , otherwise Normal temperature, tone, texture, turgor Extremities: No digital cyanosis No clubbing Pedal pulses undetectable symmetrical, due to swelling , capillary refill immediate Radial pulses intact and symmetrical No calf tenderness Psychiatric: Alert and oriented to person, place and time Appropriate affect fair judgement Neuro Muscles Strength 4/5 in all 4 extremities Sensation to light touch grossly present throughout Cranial nerves II-XII grossly intact No focal sensory deficits Lymphatics: no palpable cervical or supraclavicular , or inguinal lymph nodes Results CBC & Chem 7: 05/30/20 14:18 05/30/20 14:18 Labs: Abnormal Lab Results - Last 24 Hours (Table) 05/30/20 05/30/20 05/30/20 Range/Units 14:18 14:18 17:24 RBC 3.45 L (4.30-5.90) m/uL Hgb 11.4 L (13.0-17.5) gm/dL Hct 34.9 L (39.0-53.0) % MCV 101.2 H (80.0-100.0) fL Lymphocytes # 0.2 L (1.0-4.8) k/uL Sodium 133 L (137-145) mmol/L Chloride 93 L (98-107) mmol/L BUN 41 H (9-20) mg/dL Creatinine 2.63 H (0.66-1.25) mg/dL Glucose 104 H (74-99) mg/dL C-Reactive Protein 44.9 H (<10.0) mg/L Total Protein 9.0 H (6.3-8.2) g/dL Coronavirus (PCR) Detected A (Not Detectd) Assessment and Plan Assessment: chronic bilateral skin changes over the legs , bilateral chronic edema , rule out cellulitis patient finished 10 days course of PO antibiotics. no significant change reported by patient consider OP follow up with wound clinic for skin care, and aguila wrapping ID consultation on empiric antibiotics pain control ESRD on HD TTS continue as scheduled nephro consult afib on eliquis rate controlled h/CAD hypertension COVID test positive asymptomatic resume home meds for chronic low back pain GERD PPI maalox patient is full code on eliqius for afib anticipated length of stay <2 mid nights anticipated to be discharge home
[2020-05-31] MEDS: AMPICILLIN-SULBACTAM 3 GM in SODIUM CHLORIDE 0.9% 100 ML IVPB SCH ×2 (05:42→16:48)
[2020-05-31] MEDS: LORazepam 1 MG TAB PO SCH ×3 (05:43→20:45)
[2020-05-31] MEDS: GABAPENTIN 100 MG CAP PO SCH ×3 (05:43→20:45)
[2020-05-31] MEDS: RANOLAZINE 500 MG TAB.ER.12H PO SCH ×3 (05:44→20:45)
[2020-05-31] MEDS: APIXABAN 2.5 MG TABLET PO SCH ×3 (05:44→20:45)
[2020-05-31] MEDS: DOXAZOSIN 2 MG TAB PO SCH (05:45)
[2020-05-31 07:04] LABS: Glucose,Whole Blood 102 mg/dL (75-99)
[2020-05-31 07:05] LABS: Basophils # (A) 0.1 k/uL (0-0.2); Basophils % (A) 1 %; Eosinophils % (A) 0 %; HCT 34.6 % (39.0-53.0); HGB 11.1 gm/dL (13.0-17.5); Lymphocytes # (A) 0.4 k/uL (1.0-4.8); Lymphocytes % (A) 8 %; MCH 32.4 pg (25.0-35.0); MCV 101.3 fL (80.0-100.0); Macrocytosis Slight; Mean Platelet Volume 6.7; Monocytes # (A) 0.6 k/uL (0-1.0); Monocytes % (A) 14 %; Neutrophils # (A) 3.2 k/uL (1.3-7.7); Platelet Count 307 k/uL (150-450); RBC 3.42 m/uL (4.30-5.90); RDW 15.3 % (11.5-15.5); WBC 4.4 k/uL (3.8-10.6)
[2020-05-31 07:25] LABS: African American GFR (CKD) 22 (>60 ml/min/1.73 sqM); Anion Gap 12 mmol/L; Blood Urea Nitrogen 48 mg/dL (9-20); Calcium 9.2 mg/dL (8.4-10.2); Carbon Dioxide 28 mmol/L (22-30); Chloride 95 mmol/L (98-107); Glucose 111 mg/dL (74-99); Non-African American GFR(CKD) 19 (>60 ml/min/1.73 sqM); Sodium 135 mmol/L (137-145)
[2020-05-31] MEDS: FOLIC ACID 1 MG TAB PO SCH (10:16)
[2020-05-31] MEDS: FLUoxetine HCL 20 MG CAP PO SCH (10:16)
[2020-05-31] MEDS: PANTOPRAZOLE 40 MG TABLET PO SCH ×2 (10:16→16:47)
[2020-05-31] MEDS: ISOSORBIDE MONONITRATE ER 30 MG TAB.ER.24H PO SCH (10:16)
[2020-05-31] MEDS: NIFEdipine XL 30 MG TAB.ER.24 PO SCH (10:19)
--- NOTE | 2020-05-31 11:06 | P.NPCON ---
History of Present Illness - Reason for Consult end stage renal disease - History of Present Illness Reason for consultation: End-stage renal disease History of present illness: This time patient is a 75-year-old male seen in renal consultation for end-stage renal disease. He is maintained on hemodialysi s on Sunday schedule. Patient presented to the hospital due to fever and not feeling well overall. He does have lower extremity cellulitis and was taking antibiotics prior to admission. However due to no improvement he came to the hospital. He is currently receiving IV antibiotics. Temperature 99.5 this morning. Blood pressure stable. No vomiting or diarrhea. Oral intake is fair. He did test positive for coronavirus as well. He is currently on room air. Vital signs are stable. General: The patient appeared well nourished and normally developed. HEENT: Head exam is unremarkable. Neck is without jugular venous distension. LUNGS: Breath sounds decreased. HEART: Rate and Rhythm are regular. ABDOMEN: Soft, obese. EXTREMITITES: Erythema and warmth noted in the lower extremities. No drainage. Past Medical History Past Medical History: Atrial Fibrillation, Coronary Artery Disease (CAD), Chest Pain / Angina, Heart Failure, Eye Disorder, Hypertension, Myocardial Infarction (DC), Osteoarthritis (OA), Renal Disease Additional Past Medical History / Comment(s): Dialysis , , SUN, Past bradycardia/hyperkalemia, UTIs, chronic lymphedema, bilateral lower leg cellulitis,RLS, chronic low back pain/bulging/herniated discs-sleeps in a recliner, past gout, indirect exposure to agent orange, cataracts, R index finger injury/surgery with limited ROM.. Last Myocardial Infarction Date:: 2009 History of Any Multi-Drug Resistant Organisms: None Reported Date of last positivie culture/infection: 04/02/2018 MDRO Source:: leg wound Past Surgical History: Heart Catheterization With Stent, Tonsillectomy Additional Past Surgical History / Comment(s): [id number] stents, rt hand sx to repair severed lig/tendons(age 20). current dialysis catheter Past Anesthesia/Blood Transfusion Reactions: No Reported Reaction Additional Past Anesthesia/Blood Transfusion Reaction / Comment(s): clausterphobia Date of Last Stent Placement:: 2009 Past Psychological History: Depression Smoking Status: Never smoker Past Alcohol Use History: None Reported Past Drug Use History: None Reported - Past Family History Mother Family Medical History: Cancer Additional Family Medical History / Comment(s): breast cancer, heart problems was on warfarin(pt stated she bled out) Father Family Medical History: Coronary Artery Disease (CAD), Myocardial Infarction (DC) Additional Family Medical History / Comment(s): Father had his 1st DC in his 50s and then from his 2nd DC at the age of 74yrs. Medications and Allergies Home Medications Medication Instructions Recorded Confirmed Type Ranolazine [Ranexa] 1,000 mg PO BID@1000,2200 04/27/17 05/30/20 History Nitroglycerin Sl Tabs [Nitrostat] 0.4 mg SL Q5M PRN 05/07/19 05/30/20 History rOPINIRole HCL [Requip] 1 mg PO TID@0000,1000,1700 05/07/19 05/30/20 History Folic Acid 1 mg PO DAILY@1700 08/12/19 05/30/20 History Polyethylene Glycol 3350 [Miralax] 17 gm PO HS@0000 08/12/19 05/30/20 History Furosemide [Lasix] 60 mg PO TID@0000,1000,1700 09/27/19 05/30/20 History Gabapentin [Neurontin] 100 mg PO BID@1000,0 09/27/19 05/30/20 History LORazepam [Ativan] 1 mg PO BID@1000,2200 09/27/19 05/30/20 History NIFEdipine XL [Procardia XL] 30 mg PO DAILY@1000 09/27/19 05/30/20 History Terazosin [Hytrin] 8 mg PO HS@0000 09/27/19 05/30/20 History FLUoxetine HCL [PROzac] 20 mg PO DAILY@1000 10/28/19 05/30/20 History Isosorbide Mononitrate ER [Imdur] 30 mg PO DAILY@1000 10/28/19 05/30/20 History oxyCODONE HCL [Roxicodone] 10 mg PO HS@0000 10/28/19 05/30/20 History Apixaban [Eliquis] 2.5 mg PO BID@1000,2200 01/27/20 05/30/20 History Rosuvastatin [Crestor] 5 mg PO MOWEFR@1700 01/27/20 05/30/20 History oxyCODONE HCL [Roxicodone] 5 mg PO BID@1000,1700 01/27/20 05/30/20 History Cephalexin [Keflex] 500 mg PO Q6HR 10 Days #40 cap 05/21/20 05/30/20 Rx Doxycycline [Vibramycin] 100 mg PO BID 10 Days #20 capsule 05/21/20 05/30/20 Rx Allergies Allergy/AdvReac Type Severity Reaction Status Date / Time pravastatin Allergy Rash/Hives Verified 05/30/20 16:01 amlodipine AdvReac CONSTIPATIO Verified 05/30/20 16:01 N atenolol AdvReac MALE ED Verified 05/30/20 16:01 hydrochlorothiazide AdvReac RENAL Verified 05/30/20 16:01 IMPAIRMENT Physical Exam Vitals: Vital Signs Temp Pulse Pulse Resp BP BP Pulse Ox 05/31/20 06:07 98.6 F 83 18 145/66 96 05/31/20 02:00 99.2 F 18 96 05/31/20 00:36 99.5 F 105 H 20 126/64 97 05/31/20 00:12 105 H 05/30/20 20:02 99.0 F 92 18 141/62 96 05/30/20 19:00 88 18 150/80 97 05/30/20 16:30 99.2 F 86 20 137/77 96 05/30/20 14:00 87 20 96 05/30/20 12:30 100.2 F H 81 16 118/63 95 Intake and Output 05/30/20 05/31/20 05/31/20 22:59 06:59 14:59 Output Total 475 Balance -475 Output: Urine 475 Other: Voiding Method Urinal # Voids 2 Weight 115.666 kg Results - Lab Results Most recent lab results Calcium 9.2 mg/dL (8.4-10.2) 05/31/20 06:10 05/31/20 06:10 05/31/20 06:10 Assessment and Plan Plan: Assessment: 1. End-stage renal disease maintained on hemodialysis on Sunday schedule. 2. Lower extremity cellulitis maintained on antibiotics. 3. Hypertension with chronic kidney disease. Stable. 4. Chronic diastolic CHF. Plan: Hemodialysis tomorrow. Check phosphorus level. Antibiotics per infectious disease. Monitor vancomycin levels. Target level near 15. Thank you for the consultation. I will continue to follow the patient with you during his hospital stay.
--- NOTE | 2020-05-31 11:12 | XR ---
EXAMINATION TYPE: XR chest 1V DATE OF EXAM: 05/31/2020 COMPARISON: 10/28/2019 HISTORY: 75-year-old male follow-up shortness, COVID TECHNIQUE: Single frontal view of the chest is obtained. FINDINGS: Patient is rotated towards the left. Heart borderline enlarged. Diffuse increased interstitial. Mild patchy density at the left base. No pleural effusion. IMPRESSION: Rotated exam. Borderline cardiomegaly. Diffuse interstitial prominence could reflect fluid overload s sánchez with mild pulmonary vascular congestion. Patchy density at the left base could represent atelect asis or early infiltrate.
[2020-05-31] MEDS ORDERED: VANCOMYCIN 1,750 MG in SODIUM CHLORIDE 0.9% 500 ML 500 ML IVPB ONE (12:00)
[2020-05-31 12:01] LABS: Glucose,Whole Blood 99 mg/dL (75-99)
[2020-05-31 12:21] LABS: Band Neutrophils % 3 %; Lymphocytes # (M) 0.48 k/uL (1.0-4.8); Metamyelocytes # (M) 0.04 k/uL (0); Metamyelocytes % 1 %; Monocytes # (M) 0.75 k/uL (0-1.0); Neutrophils % (M) 69 %; Nucleated Red Blood Cells 0 /100 WBC (0-0); Total Cells Counted 200
--- NOTE | 2020-05-31 13:21 | P.PN ---
Subjective Progress Note Date: 05/31/20 Patient is awake and alert. He was sitting in the chair when I saw him. He is complaining of severe lower extremity swelling and redness that is not better since admission. Objective - Vital Signs Vital signs: Vital Signs Temp 98.6 F 05/31/20 11:01 Pulse 78 05/31/20 11:01 Resp 16 05/31/20 11:01 BP 162/62 05/31/20 11:01 Pulse Ox 98 05/31/20 11:01 Intake & Output 05/30/20 05/31/20 05/31/20 18:59 06:59 18:59 Output Total 475 Balance -475 Weight 115.666 kg 115.666 kg Output: Urine 475 Other: Voiding Method Urinal # Voids 2 - Exam General: The patient is awake and alert, in no distress Eye: there is normal conjunctiva bilaterally. Neck: The neck is supple, there is no JVD. Cardiovascular: Normal S1-S2, no S3-S4, no murmurs. Respiratory: Lungs clear to auscultation bilaterally Gastrointestinal: Abdomen is soft, nontender Musculoskeletal: There is significant swelling in both legs up to the knee. Both lower extremities are very hard secondary to severe swelling with erythema extending up to the midshin. Neurological:. Speech is normal. Skin: Skin is warm and dry - Labs CBC & Chem 7: 05/31/20 06:10 05/31/20 06:10 Labs: Abnormal Lab Results - Last 24 Hours (Table) 05/30/20 05/30/20 05/30/20 Range/Units 14:18 14:18 17:24 RBC 3.45 L (4.30-5.90) m/uL Hgb 11.4 L (13.0-17.5) gm/dL Hct 34.9 L (39.0-53.0) % MCV 101.2 H (80.0-100.0) fL Lymphocytes # 0.2 L (1.0-4.8) k/uL Lymphocytes # (Manual) (1.0-4.8) k/uL Metamyelocytes # (Man) (0) k/uL Sodium 133 L (137-145) mmol/L Chloride 93 L (98-107) mmol/L BUN 41 H (9-20) mg/dL Creatinine 2.63 H (0.66-1.25) mg/dL Glucose 104 H (74-99) mg/dL POC Glucose (mg/dL) (75-99) mg/dL C-Reactive Protein 44.9 H (<10.0) mg/L Total Protein 9.0 H (6.3-8.2) g/dL Coronavirus (PCR) Detected A (Not Detectd) 05/31/20 05/31/20 05/31/20 Range/Units 06:10 06:10 07:00 RBC 3.42 L (4.30-5.90) m/uL Hgb 11.1 L (13.0-17.5) gm/dL Hct 34.6 L (39.0-53.0) % MCV 101.3 H (80.0-100.0) fL Lymphocytes # 0.4 L (1.0-4.8) k/uL Lymphocytes # (Manual) 0.48 L (1.0-4.8) k/uL Metamyelocytes # (Man) 0.04 H (0) k/uL Sodium 135 L (137-145) mmol/L Chloride 95 L (98-107) mmol/L BUN 48 H (9-20) mg/dL Creatinine 3.06 H (0.66-1.25) mg/dL Glucose 111 H (74-99) mg/dL POC Glucose (mg/dL) 102 H (75-99) mg/dL C-Reactive Protein (<10.0) mg/L Total Protein (6.3-8.2) g/dL Coronavirus (PCR) (Not Detectd) Assessment and Plan Assessment: This is a 75-year-old male with a very complex past medical history noted below who presented to the emergency room with worsening left lower extremity swelling and redness. Patient was evaluated in the ER and admitted to the hospital for further management of his medical problems noted below 1. Bilateral lower extremity cellulitis with severe swelling, and started on antibiotic with Unasyn and vancomycin. Infectious disease consulted for further evaluation. I would obtain Doppler ultrasound to rule out DVT. 2. Positive COVID rapid test: With suspected false-positive result given patient is a symptomatic. PCR ordered for further evaluation 3. End-stage renal disease on hemodialysis TTS: Managed by nephrology 4. Acute on chronic diastolic heart failure: Patient is maintained on oral Lasix 60 mg every 8 hours. He is also scheduled for dialysis tomorrow. We will continue to monitor closely. 5. Chronic atrial fibrillation on anticoagulation with Eliquis 6. History of coronary artery disease with prior SD and stenting 7. Morbid obesity 8. Underlying cognitive impairment 9. CODE STATUS, patient is DO NOT RESUSCITATE/DO NOT INTUBATE
--- NOTE | 2020-05-31 14:36 | US ---
EXAMINATION TYPE: US venous doppler duplex LE BI DATE OF EXAM: 05/31/2020 2:15 PM COMPARISON: Prior ultrasound September 01, 2019 CLINICAL HISTORY: r/o DVT. Bilateral leg swelling SIDE PERFORMED: Bilateral TECHNIQUE: The lower extremity deep venous system is examined utilizing real time linear array sonog pastora with graded compression, doppler sonography and color-flow sonography. VESSELS IMAGED: Common Femoral Vein Deep Femoral Vein Greater Saphenous Vein * Femoral Vein Popliteal Vein Small Saphenous Vein * Proximal Calf Veins (* superficial vessels) Right Leg: Limited views due to body habitus, patient position, CFV viewed only distal, GSV, SSV, Pro ximal calf veins not seen. Appears negative for DVT. Left Leg: Limited views due to body habitus, patient position, CFV viewed only distal, GSV, SSV, Pro ximal calf veins not seen. Appears negative for DVT. Grayscale, color doppler, spectral doppler imaging performed of some of the deep veins of the bilater al lower extremities. There is normal flow, compressibility, vascular waveforms in the visualized po rtions. IMPRESSION: Suboptimal study, visualized portions show no acute deep or superficial venous thrombosi s.
[2020-05-31] MEDS: ATORVASTATIN 10 MG TAB PO SCH (16:47)
[2020-05-31 16:55] LABS: Glucose,Whole Blood 119 mg/dL (75-99)
[2020-05-31 20:04] LABS: Glucose,Whole Blood 94 mg/dL (75-99)
[2020-05-31] MEDS: MELATONIN 3 MG TABLET PO SCH (20:45)
[2020-05-31] MEDS: TRIAMCINOLONE 0.1% CREAM 80 GM TUBE TOPICAL SCH (20:46)
[2020-05-31] MEDS ORDERED: TRIAMCINOLONE ACET 0.1% OINTMENT 15 GM TUBE TOPICAL SCH (21:00)
--- NOTE | 2020-05-31 23:22 | CONS ---
CONSULTATION DATE OF SERVICE: 05/31/2020 REASON FOR CONSULTATION: Bilateral lower extremity cellulitis. HISTORY OF PRESENT ILLNESS: The patient is a 75-year-old male with a past medical history significant for coronary artery disease, end-stage renal disease, on hemodialysis, in this patient who had bilateral lower extremity venostasis dermatitis. The patient apparently was evaluated at [facility] ER on May 21 for evaluation of bilateral lower extremity swelling, redness and pain. Patient was diagnosed with cellulitis. He did receive a dose of Rocephin and subsequently discharged home on oral doxycycline and Keflex. The patient now presented to the hospital with worsening swelling and redness of the lower extremities and pain. Patient described the pain in the lower extremities to be more sharp in nature, 5 to 6 out of 10 and no radiation. The patient did have some superficial ulceration but no significant drainage. Denies high-grade fever. With these symptoms, the patient was evaluated by the ER physician. On arrival in the ER, the patient did have a low-grade fever of 100.2. The patient is saturating 95% to 96% on room air. The patient did have a normal white count with lymphopenia. Did have elevated creatinine in this patient with a history of end-stage renal disease, on hemodialysis. The patient did have a positive COVID test and a chest x-ray was positive for rotated exam, borderline cardiomegaly with diffuse interstitial prominence; could reflect fluid overload state. The patient has been started on Unasyn and vancomycin cellulitis. Infectious Disease was consulted for further management of antibiotic therapy. REVIEW OF SYSTEMS: Positive points have been mentioned in the HPI. Rest of the systems are negative. PAST MEDICAL HISTORY: Atrial fibrillation, coronary artery disease, heart failure, hypertension, ME, osteoarthritis, end-stage renal disease, on hemodialysis Sunday, , Sunday. PAST SURGICAL HISTORY: PTCA with stent, tonsillectomy and dialysis catheter placement. SOCIAL HISTORY: Patient denies smoking, drinking and drug use. FAMILY HISTORY: Mother with history of breast cancer. Father with history of coronary artery disease. ALLERGIES: PRAVASTATIN, AMLODIPINE, ATENOLOL, HYDROCHLOROTHIAZIDE. MEDICATIONS: The patient is currently on Maalox, Unasyn 3 grams q.12 hours, Eliquis, Lipitor, Cardura, Prozac, folic acid, Lasix, Neurontin, Imdur, melatonin, vancomycin, Pharmacy to dose, Narcan, Protonix, Requip and Kenalog. PHYSICAL EXAMINATION: Blood pressure is 139/70 with a pulse of 85, temperature of 99.2. He is 94% on room air. General description is an elderly male up in the chair in no distress. No tachypnea or accessory muscles of respiration use. HEENT: Examination shows pallor. No scleral icterus. Oral mucous membrane is dry. NECK: Trachea is central. No thyromegaly. LUNGS: Unlabored breathing. Decreased intensity of breath sounds. No wheeze or crackle. HEART: S1, S2. Regular rate and rhythm. ABDOMEN: Soft. No tenderness. No guarding or rigidity. BILATERAL LOWER EXTREMITIES: Diffuse swelling and redness in this patient who did have excoriation and to bilateral feet and lower leg areas. Neurologically the patient is awake, alert, oriented x3. Mood and affect normal. LABS: Hemoglobin 11.1, white count 4.4, lymphopenia. The patient did have a BUN of 48, creatinine 3.06. Liver enzymes are normal. CRP is 44.9. Rdz PCR was positive. DIAGNOSTIC IMPRESSION AND PLAN: 1. Patient with bilateral lower extremity venostasis dermatitis and a component of cellulitis in this patient who failed to respond to outpatient doxycycline and Keflex therapy with a history of dialysis, possible community-associated MRSA. Clinical suspicion low for a Gram-negative infection. 2. Patient who did have a positive COVID test. Did have diffuse interstitial infiltrate on the x-ray, questionably fluid-related; however, underlying COVID-19 infection not entirely excluded. PLAN: 1. Vancomycin, Pharmacy to dose. Target of 15 while watching his clinical course closely. 2. We will apply Mycolog cream to bilateral lower extremity perforated and dry scaly skin areas. 3. We will check CRP and procalcitonin, D-dimer, LDH for further workup for his positive COVID test. 4. We will follow his clinical condition and further adjust medication if needed. Thank you for this consultation. Will follow this patient along with you. MMODL / IJN: [id number] /
[2020-06-01] MEDS: DOXAZOSIN 2 MG TAB PO SCH (00:07)
[2020-06-01] MEDS: FUROSEMIDE 20 MG TAB PO SCH ×3 (00:08→17:04)
[2020-06-01] MEDS: AMPICILLIN-SULBACTAM 3 GM in SODIUM CHLORIDE 0.9% 100 ML IVPB SCH ×2 (05:32→17:03)
[2020-06-01 06:22] LABS: C Reactive Protein 51.8 mg/L (<10.0); Phosphorus 4.4 mg/dL (2.5-4.5)
[2020-06-01 06:24] LABS: Vancomycin,Random 25.6 ug/mL
[2020-06-01 07:07] LABS: Glucose,Whole Blood 116 mg/dL (75-99)
[2020-06-01] MEDS: PANTOPRAZOLE 40 MG TABLET PO SCH ×2 (08:52→17:02)
[2020-06-01] MEDS: LORazepam 1 MG TAB PO SCH ×2 (08:54→21:44)
[2020-06-01] MEDS: GABAPENTIN 100 MG CAP PO SCH ×2 (08:54→21:44)
[2020-06-01] MEDS: RANOLAZINE 500 MG TAB.ER.12H PO SCH ×2 (08:55→21:44)
[2020-06-01] MEDS: TRIAMCINOLONE 0.1% CREAM 80 GM TUBE TOPICAL SCH ×2 (09:04→21:45)
--- NOTE | 2020-06-01 11:21 | P.PN ---
Subjective Patient is seen in follow-up for end-stage renal disease. He is maintained on hemodialysis on Sunday schedule. Tolerating dialysis well. On antibiotics for lower extremity cellulitis. Wants to go home. Vital signs are stable. General: The patient appeared well nourished and normally developed. HEENT: Head exam is unremarkable. Neck is without jugular venous distension. LUNGS: Breath sounds decreased. HEART: Rate and Rhythm are regular. ABDOMEN: Soft, nontender. Obese. EXTREMITITES: 1+ edema. Chronic changes noted. No drainage. Objective - Vital Signs Vital signs: Vital Signs Temp 97.4 F L 06/01/20 11:07 Pulse 75 06/01/20 11:07 Resp 16 06/01/20 11:07 BP 140/74 06/01/20 11:07 Pulse Ox 93 L 06/01/20 11:07 Intake & Output 05/31/20 06/01/20 06/01/20 18:59 06:59 18:59 Intake Total 657 Output Total 445 Balance 212 Intake: Intake, IV Titration 100 Amount Ampicillin-Sulbactam 3 gm 100 In Sodium Chloride 0.9% 100 ml @ 200 mls/hr IVPB Q12H [facility] Rx#:[id number] Oral 557 Output: Urine 445 Other: # Voids 3 2 # Bowel Movements 1 - Labs CBC & Chem 7: 05/31/20 06:10 05/31/20 06:10 Labs: Abnormal Lab Results - Last 24 Hours (Table) 05/31/20 05/31/20 06/01/20 Range/Units 06:10 16:54 04:59 Lymphocytes # 0.4 L (1.0-4.8) k/uL Lymphocytes # (Manual) 0.48 L (1.0-4.8) k/uL Metamyelocytes # (Man) 0.04 H (0) k/uL POC Glucose (mg/dL) 119 H (75-99) mg/dL C-Reactive Protein 51.8 H (<10.0) mg/L 06/01/20 Range/Units 07:06 Lymphocytes # (1.0-4.8) k/uL Lymphocytes # (Manual) (1.0-4.8) k/uL Metamyelocytes # (Man) (0) k/uL POC Glucose (mg/dL) 116 H (75-99) mg/dL C-Reactive Protein (<10.0) mg/L Microbiology - Last 24 Hours (Table) 05/30/20 14:18 Blood Culture - Preliminary Blood No Growth after 24 hours 05/30/20 14:10 Blood Culture - Preliminary Blood No Growth after 24 hours Assessment and Plan Plan: Assessment: 1. End-stage renal disease maintained on hemodialysis on Sunday schedule. 2. Lower extremity cellulitis maintained on antibiotics. 3. Hypertension with chronic kidney disease. Stable. 4. Chronic diastolic CHF. Plan: Currently seen while undergoing hemodialysis. Next treatment on . Phosphorus normal. Antibiotics per infectious disease. Monitor vancomycin levels. Target level near 15.
[2020-06-01] MEDS: NYSTATIN 100,000UNIT/GM CREAM 30 GM TUBE TOPICAL SCH ×2 (11:22→21:45)
[2020-06-01] MEDS: NIFEdipine XL 30 MG TAB.ER.24 PO SCH (11:22)
[2020-06-01] MEDS: APIXABAN 2.5 MG TABLET PO SCH ×2 (11:22→21:44)
[2020-06-01] MEDS: FLUoxetine HCL 20 MG CAP PO SCH (11:22)
[2020-06-01] MEDS: ISOSORBIDE MONONITRATE ER 30 MG TAB.ER.24H PO SCH (11:22)
[2020-06-01 11:57] LABS: Glucose,Whole Blood 117 mg/dL (75-99)
[2020-06-01 15:06] LABS: African American GFR (CKD) 35 (>60 ml/min/1.73 sqM); Anion Gap 11 mmol/L; Blood Urea Nitrogen 28 mg/dL (9-20); Calcium 8.7 mg/dL (8.4-10.2); Carbon Dioxide 31 mmol/L (22-30); Chloride 96 mmol/L (98-107); Glucose 111 mg/dL (74-99); Magnesium 1.8 mg/dL (1.6-2.3); Non-African American GFR(CKD) 30 (>60 ml/min/1.73 sqM); Potassium 3.7 mmol/L (3.5-5.1); Sodium 138 mmol/L (137-145)
--- NOTE | 2020-06-01 15:46 | PN ---
PROGRESS NOTE DATE OF SERVICE: 06/01/2028 REASON FOR FOLLOWUP: 1. Bilateral lower extremity cellulitis. 2. COVID-19 infection. INTERVAL HISTORY: The patient was seen on rounds this morning. The patient was afebrile. The patient has been upset and wants to go home. He is on room air. Denies having any chest pain or shortness of breath or cough. No abdominal pain or pain to the lower extremity. PHYSICAL EXAMINATION: Blood pressure 140/74 with a pulse of 75, temperature 97.4. He is 93% on room air. General description is an elderly male up in the chair in no distress. RESPIRATORY SYSTEM: Unlabored breathing. Clear to auscultation anteriorly. HEART: S1, S2. Regular rate and rhythm. ABDOMEN: Soft. No tenderness. LEGS: Swelling persists. Minimal redness. Did have dry scaly skin on the feet. LABS: BUN of 28, creatinine is 2.10. LDH is 585. CRP was 51.8. DIAGNOSTIC IMPRESSION AND PLAN: 1. Patient with bilateral lower extremity cellulitis, some venostasis, in this patient failing outpatient oral Keflex and doxycycline. Some improvement with vancomycin. The patient is a dialysis patient and he will not be able to get vancomycin through the dialysis. In order to avoid a PICC line, will try oral Zyvox 600 mg twice a day for a week along with Mycolog cream to the dry irritated skin and close outpatient followup. 2. Patient with COVID test, and the patient is currently not hypoxic. Denies any respiratory symptoms. He is feeling fine . MMODL / IJN: [id number] /
--- NOTE | 2020-06-01 15:49 | P.PN ---
Subjective Progress Note Date: 06/01/20 Hospital course: Patient is a 75-year-old male with a past medical history of CAD with previous [place] resulting in stent placement, chronic diastolic heart failure with an EF of 50-55%, hypertension, hyperlipidemia, ESRD on dialysis Tuesdays//Saturdays, chronic bilateral lower extremity swelling, and chronic back pain. Patient presented to the hospital on 05/30/20 for evaluation of weeping wounds on his lower extremities resulting from chronic bilateral lower extremity edema. Patient was found to have bilateral lower extremity cellulitis and was started on IV antibiotics Unasyn and vancomycin after failed outpatient treatment. Patient also tested positive for Covid 19 virus infection. Patient admitted under our services along with consultation to infectious disease for cellulitis after failing outpatient treatment, nephrology for needed dialysis, and pulmonology for Covid 19 virus infection. Physical exam: 06/01/20: Patient seen and evaluated at bedside this morning. At time of assessment, patient receiving dialysis. Patient reports feeling slightly anxious this morning, stating he does not feel like he is ever going to get to go home. Pt states, "they say once you go into the hospital at my age, you never go home." Patient expressing that he misses his family. Patient reassured that our goal is to help him feel well enough to go back home to his family. Patient denies having any headache, lightheadedness, dizziness, chest pain, palpitations, shortness of breath, cough, or congestion. Bilateral lower extremity venous Dopplers were negative for DVT. BMP consistent with ESRD with BUN 28, creatinine 2.10, and GFR of 30. Electrolyte values normal findings. Pro-calcitonin 0.23. General: non toxic, no distress, appears at stated age Derm: warm, dry Head: atraumatic, normocephalic, symmetric Eyes: EOMI, no lid lag, anicteric sclera Mouth: no lip lesion, mucus membranes moist Cardiovascular: S1S2 reg, no murmur, positive posterior tibial pulses bilateral ly, AV fistula left upper extremity with bruit and thrill intact. Lungs: Respirations even, regular, and unlabored on room air. SpO2 90%. Lungs diminished with diffuse rhonchi present. Abdominal: soft, nontender to palpation, no guarding, no appreciable organomegaly Ext: no gross muscle atrophy, no contractures. Patient with moderate 3 + pitting edema in bilateral lower extremities accompanied by significant erythema. Neuro: CN II-XI grossly intact, no focal neuro deficits. Psych: Alert, oriented, appropriate affect Assessment and Plan of care: Bilateral lower extremity cellulitis -Continue IV antibiotics with Unasyn and vancomycin. -Infectious disease following, Dr. Alcantara recommending patient to be transitioned to Zyvox 600 mg twice daily 7 days and Mycolog cream twice a day for 7 days upon discharge. -Bilateral lower extremity venous Dopplers negative for DVTs. -Symptomatic care and pain management, encourage elevation. Covid 19 virus infection -Initial chest x-ray showing borderline cardiomegaly with diffuse interstitial prominence possibly reflecting fluid overload with mild pulmonary vascular congestion and patchy density at the left base possibly representing atelectasis or early infiltrate. -Covid 19 PCR positive on 05/30/20 and again on 05/31/20. -Patient asymptomatic denying any shortness of breath, cough, or congestion however when trending SpO2 patient initially maintaining a pulse ox of 95-98% on room air and over the past 24 hours have noticed a decline with SpO2 90-93% on room air. Will repeat chest x-ray tomorrow a.m. -Patient to be provided with oxygen supplementation as needed to maintain SpO2 equal to or greater than 90%. -Patient placed on Decadron 6 mg daily. Day 1 of steroids. -Patient started on zinc, vitamin D, vitamin C, and melatonin. -Pulmonology consulted. Acute on Chronic diastolic heart failure -Initial chest x-ray did reveal mild fluid overload with pulmonary vascular congestion . -ProBNP was 8890. -Continue Lasix 60 mg 3 times daily -Echocardiogram completed 09/20/19 revealed a preserved EF of 50-55% with mild aortic valve sclerosis and mild pulmonary hypertension. End-stage renal disease on dialysis -Continue dialysis. -Nephrology following. -Will monitor renal function and electrolyte values closely with repeat a.m. labs. Chronic Paroxysmal atrial fibrillation on anticoagulation with Eliquis -Continue anticoagulation with Eliquis. -Continue Procardia 30 mg daily. Hypertension -Monitor vital signs and continue daily medication management. Hyperlipidemia -Continue daily medication management. -Renal diet. History of CAD with previous NH and stent placement -Continue daily medication management with Imdur, Lasix, atorvastatin, and El iquis. CODE STATUS: DO NOT RESUSCITATE DVT prophylaxis: Eliquis Discussed with: Patient and RN, attempted to call son Asad at 3:15 p.m. and voicemail message was left. Anticipated discharge date: Clinical course to determine Anticipated discharge place: Home A total of 45 minutes was spent on the care of this complex patient more than 50% of the time was spent in counseling and care coordination. Objective - Vital Signs Vital signs: Vital Signs Temp 98.3 F 06/01/20 05:44 Pulse 82 06/01/20 05:44 Resp 17 06/01/20 05:44 BP 128/70 06/01/20 05:44 Pulse Ox 93 L 06/01/20 05:44 Intake & Output 05/31/20 06/01/20 06/01/20 18:59 06:59 18:59 Intake Total 657 Output Total 445 Balance 212 Intake: Intake, IV Titration 100 Amount Ampicillin-Sulbactam 3 gm 100 In Sodium Chloride 0.9% 100 ml @ 200 mls/hr IVPB Q12H [facility] Rx#:[id number] Oral 557 Output: Urine 445 Other: # Voids 3 2 # Bowel Movements 1 - Labs CBC & Chem 7: 05/31/20 06:10 06/01/20 14:15 Labs: Abnormal Lab Results - Last 24 Hours (Table) 05/31/20 05/31/20 06/01/20 Range/Units 06:10 16:54 04:59 Lymphocytes # 0.4 L (1.0-4.8) k/uL Lymphocytes # (Manual) 0.48 L (1.0-4.8) k/uL Metamyelocytes # (Man) 0.04 H (0) k/uL POC Glucose (mg/dL) 119 H (75-99) mg/dL C-Reactive Protein 51.8 H (<10.0) mg/L 06/01/20 Range/Units 07:06 Lymphocytes # (1.0-4.8) k/uL Lymphocytes # (Manual) (1.0-4.8) k/uL Metamyelocytes # (Man) (0) k/uL POC Glucose (mg/dL) 116 H (75-99) mg/dL C-Reactive Protein (<10.0) mg/L Microbiology - Last 24 Hours (Table) 05/30/20 14:18 Blood Culture - Preliminary Blood No Growth after 24 hours 05/30/20 14:10 Blood Culture - Preliminary Blood No Growth after 24 hours
[2020-06-01 16:58] LABS: Glucose,Whole Blood 118 mg/dL (75-99)
[2020-06-01] MEDS: FOLIC ACID 1 MG TAB PO SCH (17:02)
[2020-06-01] MEDS: dexAMETHasone 2 MG TAB PO SCH (17:02)
[2020-06-01 18:09] LABS: Ferritin 3280.8 ng/mL (22.0-322.0)
[2020-06-01 20:57] LABS: Glucose,Whole Blood 170 mg/dL (75-99)
[2020-06-01] MEDS: MELATONIN 3 MG TABLET PO SCH (21:44)
[2020-06-02] MEDS: FUROSEMIDE 20 MG TAB PO SCH ×4 (00:34→23:25)
[2020-06-02] MEDS: DOXAZOSIN 2 MG TAB PO SCH ×2 (00:35→23:25)
[2020-06-02] MEDS: ACETAMINOPHEN TAB 325 MG TAB PO PRN ×2 (01:52→21:27)
[2020-06-02] MEDS: AMPICILLIN-SULBACTAM 3 GM in SODIUM CHLORIDE 0.9% 100 ML IVPB SCH ×2 (05:49→18:13)
[2020-06-02 07:07] LABS: Glucose,Whole Blood 177 mg/dL (75-99)
--- NOTE | 2020-06-02 07:42 | XR ---
EXAMINATION TYPE: XR chest 1V portable DATE OF EXAM: 06/02/2020 CLINICAL HISTORY: Difficulty breathing and covid-19 progress study. TECHNIQUE: Single AP portable upright view of the chest is obtained. COMPARISON: Chest x-ray from 2 days earlier and older studies FINDINGS: Heart size stable and mildly enlarged with atherosclerotic thoracic aorta. Background Chronic parenchymal changes with left greater than right bibasilar opacities. Upper lungs remain clear without pneumothorax. Underlying scoliotic curvature or positioning redemonstrated. IMPRESSION: Cardiomegaly and chronic changes with left greater than right patchy bibasilar atelectasi s and/or infiltrate, slight interval progression from most recent x-ray noted.
[2020-06-02] MEDS: ZINC SULFATE 220 MG CAP PO SCH (09:11)
[2020-06-02] MEDS: CHOLECALCIFEROL 25 MCG (1000 IU) TABLET PO SCH (09:11)
[2020-06-02] MEDS: PANTOPRAZOLE 40 MG TABLET PO SCH ×2 (09:12→18:13)
[2020-06-02] MEDS: dexAMETHasone 2 MG TAB PO SCH (09:12)
[2020-06-02] MEDS: ASCORBIC ACID 500 MG TAB PO SCH (09:12)
--- NOTE | 2020-06-02 11:02 | P.PN ---
Subjective Patient is seen in follow-up for end-stage renal disease. He is maintained on hemodialysis on Sunday schedule. Tolerated dialysis well yesterday. Receiving antibiotics for lower extremity cellulitis. Also positive for covid. Currently on room air. Vital signs are stable. General: The patient appeared well nourished and normally developed. HEENT: Head exam is unremarkable. Neck is without jugular venous distension. LUNGS: Breath sounds decreased. HEART: Rate and Rhythm are regular. ABDOMEN: Soft, nontender. Obese. EXTREMITITES: 1+ edema. Chronic changes noted. No drainage. Objective - Vital Signs Vital signs: Vital Signs Temp 97.6 F 06/02/20 09:43 Pulse 64 06/02/20 09:43 Resp 18 06/02/20 09:43 BP 121/68 06/02/20 09:43 Pulse Ox 97 06/02/20 09:43 Intake & Output 06/01/20 06/02/20 06/02/20 18:59 06:59 18:59 Intake Total 880 Output Total 1999 Balance -1999 880 -220 Intake: Intake, IV Titration 340 Amount Ampicillin-Sulbactam 3 gm 340 In Sodium Chloride 0.9% 100 ml @ 200 mls/hr IVPB Q12H [facility] Rx#:[id number] Oral 540 Output: Urine 220 Hemodialysis 1999 Other: Voiding Method Urinal Urinal # Voids 8 2 - Labs CBC & Chem 7: 05/31/20 06:10 06/01/20 14:15 Labs: Abnormal Lab Results - Last 24 Hours (Table) 05/31/20 06/01/20 06/01/20 Range/Units 13:08 04:59 04:59 Chloride (98-107) mmol/L Carbon Dioxide (22-30) mmol/L BUN (9-20) mg/dL Creatinine (0.66-1.25) mg/dL Glucose (74-99) mg/dL POC Glucose (mg/dL) (75-99) mg/dL Ferritin 3280.8 H (22.0-322.0) ng/mL Procalcitonin 0.23 H (0.02-0.09) ng/mL Coronavirus (PCR) Detected A (Not Detected) 06/01/20 06/01/20 06/01/20 Range/Units 11:55 14:15 16:56 Chloride 96 L (98-107) mmol/L Carbon Dioxide 31 H (22-30) mmol/L BUN 28 H (9-20) mg/dL Creatinine 2.10 H (0.66-1.25) mg/dL Glucose 111 H (74-99) mg/dL POC Glucose (mg/dL) 117 H 118 H (75-99) mg/dL Ferritin (22.0-322.0) ng/mL Procalcitonin (0.02-0.09) ng/mL Coronavirus (PCR) (Not Detected) 06/01/20 06/02/20 Range/Units 20:55 07:05 Chloride (98-107) mmol/L Carbon Dioxide (22-30) mmol/L BUN (9-20) mg/dL Creatinine (0.66-1.25) mg/dL Glucose (74-99) mg/dL POC Glucose (mg/dL) 170 H 177 H (75-99) mg/dL Ferritin (22.0-322.0) ng/mL Procalcitonin (0.02-0.09) ng/mL Coronavirus (PCR) (Not Detected) Microbiology - Last 24 Hours (Table) 05/30/20 14:18 Blood Culture - Preliminary Blood No Growth after 48 hours 05/30/20 14:10 Blood Culture - Preliminary Blood No Growth after 48 hours Assessment and Plan Plan: Assessment: 1. End-stage renal disease maintained on hemodialysis on Sunday schedule. 2. Lower extremity cellulitis maintained on antibiotics. 3. Hypertension with chronic kidney disease. Stable. 4. Chronic diastolic CHF. 5. COVID-19 infection. Currently on room air. Plan: Hemodialysis tomorrow. Phosphorus normal. Antibiotics per infectious disease. Monitor vancomycin levels. Target level near 15.
[2020-06-02] MEDS: NYSTATIN 100,000UNIT/GM CREAM 30 GM TUBE TOPICAL SCH ×2 (11:05→21:27)
[2020-06-02] MEDS: NIFEdipine XL 30 MG TAB.ER.24 PO SCH (11:05)
[2020-06-02] MEDS: TRIAMCINOLONE 0.1% CREAM 80 GM TUBE TOPICAL SCH ×2 (11:05→21:27)
[2020-06-02] MEDS: APIXABAN 2.5 MG TABLET PO SCH ×2 (11:06→21:25)
[2020-06-02] MEDS: GABAPENTIN 100 MG CAP PO SCH ×2 (11:06→21:25)
[2020-06-02] MEDS: ISOSORBIDE MONONITRATE ER 30 MG TAB.ER.24H PO SCH (11:06)
[2020-06-02] MEDS: RANOLAZINE 500 MG TAB.ER.12H PO SCH ×2 (11:06→21:25)
[2020-06-02] MEDS: LORazepam 1 MG TAB PO SCH ×2 (11:06→21:26)
[2020-06-02] MEDS: FLUoxetine HCL 20 MG CAP PO SCH (11:07)
[2020-06-02 11:50] LABS: Glucose,Whole Blood 164 mg/dL (75-99)
[2020-06-02 11:54] LABS: HCT 32.1 % (39.6-50.0); HGB 10.4 g/dL (13.0-17.0); MCHC 32.4 g/dL (32.0-37.0); MCV 101.9 fL (80.0-97.0); Mean Platelet Volume 9.5 fL (9.5-12.2); Platelet Count 253 X 10*3/uL (140-440); RBC 3.15 X 10*6/uL (4.40-5.60); RDW 15.1 % (11.5-14.5); WBC 2.36 X 10*3/uL (4.50-10.00)
[2020-06-02] MEDS ORDERED: VANCOMYCIN 1,750 MG in SODIUM CHLORIDE 0.9% 500 ML 500 ML IVPB ONE (12:00)
[2020-06-02 13:39] LABS: African American GFR (CKD) 23.6 (60.0-200.0); Anion Gap 14.5 mmol/L (4.00-12.00); BUN/Creat Ratio 14.83 Ratio (12.00-20.00); C Reactive Protein 8.8 mg/dL (0.0-0.8); Calcium 8.9 mg/dL (8.7-10.3); Carbon Dioxide 26.5 mmol/L (21.6-31.8); Magnesium 2.1 mg/dL (1.5-2.4); Non-African American GFR(CKD) 20.4 (60.0-200.0); Potassium 4.3 mmol/L (3.5-5.5)
--- NOTE | 2020-06-02 13:44 | P.PN ---
Subjective Progress Note Date: 06/02/20 Hospital course: Patient is a 75-year-old male with a past medical history of CAD with previous [place] resulting in stent placement, chronic diastolic heart failure with an EF of 50-55%, hypertension, hyperlipidemia, ESRD on dialysis Tuesdays//Saturdays, chronic bilateral lower extremity swelling, and chronic back pain. Patient presented to the hospital on 05/30/20 for evaluation of weeping wounds on his lower extremities resulting from chronic bilateral lower extremity edema. Patient was found to have bilateral lower extremity cellulitis and was started on IV antibiotics Unasyn and vancomycin after failed outpatient treatment. Patient also tested positive for Covid 19 virus infection. Patient admitted under our services along with consultation to infectious disease for cellulitis after failing outpatient treatment, nephrology for needed dialysis, and pulmonology for Covid 19 virus infection. Physical exam: 06/02/20: Patient seen and evaluated at bedside this morning. Patient reports feeling fine this morning and ready to go home. Resting and ambulatory pulse ox was 92%, however pt did have documented episode of hypoxia yesterday evening with SPO2 decreasing to 87%. Spoke with pt's and son. Arrangements being made for patient to be discharged home tomorrow. He will receive dialysis and plan for potential discharge after. Arrangements being set up for pt to have transportation to and from dialysis upon discharge along with homecare. Patient denies having any headache, lightheadedness, dizziness, chest pain, palpitations, shortness of breath, cough, or congestion. Bilateral lower extremity venous Dopplers were negative for DVT. CBC revealing leukopenia with WBC count of 2.36. BMP consistent with ESRD with BUN of 43 dialysis to be completed tomorrow. Inflammatory markers improving with LDH of 288 down from previous 585in CRP of 8.8 down from previous 51.8. General: non toxic, no distress, appears at stated age Derm: warm, dry Head: atraumatic, normocephalic, symmetric Eyes: EOMI, no lid lag, anicteric sclera Mouth: no lip lesion, mucus membranes moist Cardiovascular: S1S2 reg, no murmur, positive posterior tibial pulses bilaterally, AV fistula left upper extremity with bruit and thrill intact. Lungs: Respirations even, regular, and unlabored on room air. SpO2 90%. Lungs diminished with diffuse rhonchi present. Abdominal: soft, nontender to palpation, no guarding, no appreciable organomegaly Ext: no gross muscle atrophy, no contractures. Patient with moderate 3 + pitting edema in bilateral lower extremities accompanied by significant e rythema. Neuro: CN II-XI grossly intact, no focal neuro deficits. Psych: Alert, oriented, appropriate affect Assessment and Plan of care: Bilateral lower extremity cellulitis -Continue IV antibiotics with Unasyn and vancomycin. -Infectious disease following, Dr. Alcantara recommending patient to be transitioned to Zyvox 600 mg twice daily 7 days and Mycolog cream twice a day for 7 days upon discharge. -Bilateral lower extremity venous Dopplers negative for DVTs. -Symptomatic care and pain management, encourage elevation. Covid 19 virus infection -Initial chest x-ray showing borderline cardiomegaly with diffuse interstitial prominence possibly reflecting fluid overload with mild pulmonary vascular congestion and patchy density at the left base possibly representing atelectasis or early infiltrate. -Covid 19 PCR positive on 05/30/20 and again on 05/31/20. -Patient asymptomatic denying any shortness of breath, cough, or congestion however when trending SpO2 patient initially maintaining a pulse ox of 95-98% on room air and over the past 24 hours have noticed a decline with SpO2 90-93% on room air. -Repeat chest x-ray completed this morning revealing cardiomegaly with chronic changes with left greater than right patchy bibasilar atelectasis and/or infiltrate slight interval progression from most recent x-ray. -Patient to be provided with oxygen supplementation as needed to maintain SpO2 equal to or greater than 90%. -Patient placed on Decadron 6 mg daily. Day 2 of steroids. -Patient started on zinc, vitamin D, vitamin C, and melatonin. -Pulmonology following, appreciate further recommendations. Acute on Chronic diastolic heart failure -Initial chest x-ray did reveal mild fluid overload with pulmonary vascular congestion . -ProBNP was 8890. -Continue Lasix 60 mg 3 times daily -Echocardiogram completed 09/20/19 revealed a preserved EF of 50-55% with mild aortic valve sclerosis and mild pulmonary hypertension. End-stage renal disease on dialysis -Continue dialysis. -Nephrology following. -Will monitor renal function and electrolyte values closely with repeat a.m. labs. Chronic Paroxysmal atrial fibrillation on anticoagulation with Eliquis -Continue anticoagulation with Eliquis. -Continue Procardia 30 mg daily. Hypertension -Monitor vital signs and continue daily medication management. Hyperlipidemia -Continue daily medication management. -Renal diet. History of CAD with previous [place] and stent placement -Continue daily medication management with Imdur, Lasix, atorvastatin, and Eliquis. CODE STATUS: DO NOT RESUSCITATE DVT prophylaxis: Eliquis Discussed with: Patient and RN, along with pt's Mayra and his son Asad. Anticipated discharge date: Clinical course to determine. Possible plan for discharge tomorrow after dialysis. Anticipated discharge place: Home A total of 45 minutes was spent on the care of this complex patient more than 50% of the time was spent in counseling and care coordination. Objective - Vital Signs Vital signs: Vital Signs Temp 97.7 F 06/02/20 06:38 Pulse 71 06/02/20 06:38 Resp 18 06/02/20 06:38 BP 111/54 06/02/20 06:38 Pulse Ox 93 L 06/02/20 06:38 Intake & Output 06/01/20 06/02/20 06/02/20 18:59 06:59 18:59 Intake Total 880 Output Total 1999 Balance -19990 Intake: Intake, IV Titration 340 Amount Ampicillin-Sulbactam 3 gm 340 In Sodium Chloride 0.9% 100 ml @ 200 mls/hr IVPB Q12H [facility] Rx#:[id number] Oral 540 Output: Hemodialysis 1999 Other: Voiding Method Urinal # Voids 8 - Labs CBC & Chem 7: 06/02/20 06:27 06/01/20 14:15 Labs: Abnormal Lab Results - Last 24 Hours (Table) 05/31/20 06/01/20 06/01/20 Range/Units 13:08 04:59 04:59 Chloride (98-107) mmol/L Carbon Dioxide (22-30) mmol/L BUN (9-20) mg/dL Creatinine (0.66-1.25) mg/dL Glucose (74-99) mg/dL POC Glucose (mg/dL) (75-99) mg/dL Ferritin 3280.8 H (22.0-322.0) ng/mL Procalcitonin 0.23 H (0.02-0.09) ng/mL Coronavirus (PCR) Detected A (Not Detected) 06/01/20 06/01/20 06/01/20 Range/Units 11:55 14:15 16:56 Chloride 96 L (98-107) mmol/L Carbon Dioxide 31 H (22-30) mmol/L BUN 28 H (9-20) mg/dL Creatinine 2.10 H (0.66-1.25) mg/dL Glucose 111 H (74-99) mg/dL POC Glucose (mg/dL) 117 H 118 H (75-99) mg/dL Ferritin (22.0-322.0) ng/mL Procalcitonin (0.02-0.09) ng/mL Coronavirus (PCR) (Not Detected) 06/01/20 06/02/20 Range/Units 20:55 07:05 Chloride (98-107) mmol/L Carbon Dioxide (22-30) mmol/L BUN (9-20) mg/dL Creatinine (0.66-1.25) mg/dL Glucose (74-99) mg/dL POC Glucose (mg/dL) 170 H 177 H (75-99) mg/dL Ferritin (22.0-322.0) ng/mL Procalcitonin (0.02-0.09) ng/mL Coronavirus (PCR) (Not Detected) Microbiology - Last 24 Hours (Table) 05/30/20 14:18 Blood Culture - Preliminary Blood No Growth after 48 hours 05/30/20 14:10 Blood Culture - Preliminary Blood No Growth after 48 hours
--- NOTE | 2020-06-02 14:56 | P.CNPUL ---
History of Present Illness Consult date: 06/02/20 Requesting physician: Kash Chaidez Reason for consult: other Chief complaint: COVID-19 pneumonia History of present illness: 75-year-old white male patient with past medical history of CAD, hypertension, end-stage renal disease on hemodialysis, chronic A. fib, previous history of CA, osteoarthritis, lower extremity cellulitis, depression, (nonsmoker who was admitted to the hospital on 05/30/2020 when he presented with bilateral leg swelling and weeping. Patient was tested for COVID-19 however he denies any respiratory symptoms, no fever, no shortness of breath, no cough, no nausea vomiting or diarrhea, he is not requiring any supplemental oxygen. His chest x- ray on admission showed borderline cardiomegaly, diffuse interstitial prominence possibility of mild pulmonary vascular congestion, and patchy density at the left base. His admission blood work showed orbital, 6.3, he had that before. Ultracet, 0.2, BUN 41, creatinine is 2.63, sodium is 133, chloride is 93, his proBNP was 8890, LDH was 585, and CRP was 44.9, pro calcitonin level was negative at 0.23, patient is receiving antibiotics for his lower extremity cellulitis, and local treatment, today we were asked to see the patient for COVID-19. He remains on room air, he still has no pulmonary symptoms, he is afebrile, his breathing very comfortably, follow-up chest x-ray today shows cardiomegaly and chronic changes with the left greater than right patchy bibasilar atelectasis slight interval progression in most recent x-ray. he is sitting up in the chair, breathing comfortably, she had hemodialysis yesterday with removal of 2 L of fluid. He is on Decadron 6 mg daily, he is on oral Lasix, he is already on Eliquis for history of atrial fibrillation. Review of Systems All systems: negative Constitutional: Denies chills, Denies fever Eyes: denies blurred vision, denies pain Ears, nose, mouth and throat: Denies headache, Denies sore throat Cardiovascular: Denies chest pain, Denies shortness of breath Respiratory: Denies cough Gastrointestinal: Denies abdominal pain, Denies diarrhea, Denies nausea, Denies vomiting Musculoskeletal: Denies myalgias Integumentary: Reports wounds, Denies pruritus, Denies rash Neurological: Denies numbness, Denies weakness Psychiatric: Denies anxiety, Denies depression Endocrine: Denies fatigue, Denies weight change Past Medical History Past Medical History: Atrial Fibrillation, Coronary Artery Disease (CAD), Chest Pain / Angina, Heart Failure, Eye Disorder, Hypertension, Myocardial Infarction (CA), Osteoarthritis (OA), Renal Disease Additional Past Medical History / Comment(s): Dialysis TU, TH, SAT, Past bradycardia/hyperkalemia, UTIs, chronic lymphedema, bilateral lower leg cellulitis,RLS, chronic low back pain/bulging/herniated discs-sleeps in a recliner, past gout, indirect exposure to agent orange, cataracts, R index finger injury/surgery with limited ROM.. Last Myocardial Infarction Date:: 2009 History of Any Multi-Drug Resistant Organisms: None Reported Date of last positivie culture/infection: None MDRO Source:: None Past Surgical History: Heart Catheterization With Stent, Tonsillectomy Additional Past Surgical History / Comment(s): [id number] stents, rt hand sx to repair severed lig/tendons(age 20). current dialysis catheter Past Anesthesia/Blood Transfusion Reactions: No Reported Reaction Additional Past Anesthesia/Blood Transfusion Reaction / Comment(s): madina rphobia Date of Last Stent Placement:: 2009 Past Psychological History: Depression Smoking Status: Never smoker Past Alcohol Use History: None Reported Past Drug Use History: None Reported - Past Family History Mother Family Medical History: Cancer Additional Family Medical History / Comment(s): breast cancer, heart problems was on warfarin(pt stated she bled out) Father Family Medical History: Coronary Artery Disease (CAD), Myocardial Infarction (CA) Additional Family Medical History / Comment(s): Father had his 1st CA in his 50s and then from his 2nd CA at the age of 74yrs. Medications and Allergies Home Medications Medication Instructions Recorded Confirmed Type Ranolazine [Ranexa] 1,000 mg PO BID@1000,2200 04/27/17 05/30/20 History Nitroglycerin Sl Tabs [Nitrostat] 0.4 mg SL Q5M PRN 05/07/19 05/30/20 History rOPINIRole HCL [Requip] 1 mg PO TID@0000,1000,1700 05/07/19 05/30/20 History Folic Acid 1 mg PO DAILY@1700 08/12/19 05/30/20 History Polyethylene Glycol 3350 [Miralax] 17 gm PO HS@0000 08/12/19 05/30/20 History Furosemide [Lasix] 60 mg PO TID@0000,1000,1700 09/27/19 05/30/20 History Gabapentin [Neurontin] 100 mg PO BID@1000,2200 09/27/19 05/30/20 History LORazepam [Ativan] 1 mg PO BID@1000,2200 09/27/19 05/30/20 History NIFEdipine XL [Procardia XL] 30 mg PO DAILY@1000 09/27/19 05/30/20 History Terazosin [Hytrin] 8 mg PO HS@0000 09/27/19 05/30/20 History FLUoxetine HCL [PROzac] 20 mg PO DAILY@1000 10/28/19 05/30/20 History Isosorbide Mononitrate ER [Imdur] 30 mg PO DAILY@1000 10/28/19 05/30/20 History oxyCODONE HCL [Roxicodone] 10 mg PO HS@0000 10/28/19 05/30/20 History Apixaban [Eliquis] 2.5 mg PO BID@1000,2200 01/27/20 05/30/20 History Rosuvastatin [Crestor] 5 mg PO MOWEFR@1700 01/27/20 05/30/20 History oxyCODONE HCL [Roxicodone] 5 mg PO BID@1000,1700 01/27/20 05/30/20 History Cephalexin [Keflex] 500 mg PO Q6HR 10 Days #40 cap 05/21/20 05/30/20 Rx Doxycycline [Vibramycin] 100 mg PO BID 10 Days #20 capsule 05/21/20 05/30/20 Rx Allergies Allergy/AdvReac Type Severity Reaction Status Date / Time pravastatin Allergy Rash/Hives Verified 05/30/20 16:01 amlodipine AdvReac CONSTIPATIO Verified 05/30/20 16:01 N atenolol AdvReac MALE ED Verified 05/30/20 16:01 hydrochlorothiazide AdvReac RENAL Verified 05/30/20 16:01 IMPAIRMENT Physical Exam Vitals: Vital Signs Temp Pulse Resp BP Pulse Ox 06/02/20 09:43 97.6 F 64 18 121/68 97 06/02/20 08:35 71 18 06/02/20 06:38 97.7 F 71 18 111/54 93 L 06/02/20 03:20 98.4 F 63 19 108/53 92 L 06/01/20 23:07 16 06/01/20 22:36 99.0 F 70 17 122/64 87 L 06/01/20 18:28 98.9 F 71 16 120/63 90 L Intake and Output 06/01/20 06/02/20 06/02/20 22:59 06:59 14:59 Intake Total 880 Output Total 220 Balance 880 -220 Intake: Intake, IV Titration 340 Amount Ampicillin-Sulbactam 3 gm 340 In Sodium Chloride 0.9% 100 ml @ 200 mls/hr IVPB Q12H [facility] Rx#:[id number] Oral 540 Output: Urine 220 Other: Voiding Method Urinal Urinal # Voids 8 2 GENERAL EXAM: Alert, very pleasant, 75-year-old white male, on room air, with a pulse ox of 97% sitting up in the chair, comfortable in no apparent distress. HEAD: Normocephalic/atraumatic. EYES: Normal reaction of pupils, equal size. Conjunctiva pink, sclera white. NOSE: Clear with pink turbinates. THROAT: No erythema or exudates. NECK: No masses, no JVD, no thyroid enlargement, no adenopathy. CHEST: No chest wall deformity. Symmetrical expansion. LUNGS: Equal air entry with no crackles, wheeze, rhonchi or dullness. CVS: Regular rate and rhythm, normal S1 and S2, no gallops, no murmurs, no rubs ABDOMEN: Soft, nontender. No hepatosplenomegaly, normal bowel sounds, no guarding or rigidity. EXTREMITIES: No clubbing, 2+ lower extremity edema and changes of chronic venous stasis in bilateral lower extremities, no weeping, no redness no warmth, no c yanosis, 2+ pulses and upper and lower extremities. MUSCULOSKELETAL: Muscle strength and tone normal. SPINE: No scoliosis or deformity SKIN: No rashes CENTRAL NERVOUS SYSTEM: Alert and oriented -3. No focal deficits, tone is normal in all 4 extremities. PSYCHIATRIC: Alert and oriented -3. Appropriate affect. Intact judgment and insight. Results - Laboratory Findings CBC and BMP: 06/02/20 06:27 06/02/20 06:27 PT/INR, D-dimer D-Dimer 0.55 mg/L FEU (<0.60) 06/01/20 04:59 Abnormal lab findings: Abnormal Labs 05/30/20 05/30/20 05/30/20 14:18 14:18 17:24 WBC RBC 3.45 L Hgb 11.4 L Hct 34.9 L MCV 101.2 H MCH RDW Lymphocytes # 0.2 L Lymphocytes # (Manual) Metamyelocytes # (Man) Sodium 133 L Chloride 93 L Carbon Dioxide Anion Gap BUN 41 H Creatinine 2.63 H Est GFR (CKD-EPI)AfAm Est GFR (CKD-EPI)NonAf Glucose 104 H POC Glucose (mg/dL) Ferritin Lactate Dehydrogenase C-Reactive Protein 44.9 H Total Protein 9.0 H Procalcitonin Coronavirus (PCR) Detected A 05/31/20 05/31/20 05/31/20 06:10 06:10 07:00 WBC RBC 3.42 L Hgb 11.1 L Hct 34.6 L MCV 101.3 H MCH RDW Lymphocytes # 0.4 L Lymphocytes # (Manual) 0.48 L Metamyelocytes # (Man) 0.04 H Sodium 135 L Chloride 95 L Carbon Dioxide Anion Gap BUN 48 H Creatinine 3.06 H Est GFR (CKD-EPI)AfAm Est GFR (CKD-EPI)NonAf Glucose 111 H POC Glucose (mg/dL) 102 H Ferritin Lactate Dehydrogenase C-Reactive Protein Total Protein Procalcitonin Coronavirus (PCR) 05/31/20 05/31/20 06/01/20 13:08 16:54 04:59 WBC RBC Hgb Hct MCV MCH RDW Lymphocytes # Lymphocytes # (Manual) Metamyelocytes # (Man) Sodium Chloride Carbon Dioxide Anion Gap BUN Creatinine Est GFR (CKD-EPI)AfAm Est GFR (CKD-EPI)NonAf Glucose POC Glucose (mg/dL) 119 H Ferritin 3280.8 H Lactate Dehydrogenase C-Reactive Protein 51.8 H Total Protein Procalcitonin Coronavirus (PCR) Detected A 06/01/20 06/01/20 06/01/20 04:59 07:06 11:55 WBC RBC Hgb Hct MCV MCH RDW Lymphocytes # Lymphocytes # (Manual) Metamyelocytes # (Man) Sodium Chloride Carbon Dioxide Anion Gap BUN Creatinine Est GFR (CKD-EPI)AfAm Est GFR (CKD-EPI)NonAf Glucose POC Glucose (mg/dL) 116 H 117 H Ferritin Lactate Dehydrogenase C-Reactive Protein Total Protein Procalcitonin 0.23 H Coronavirus (PCR) 06/01/20 06/01/20 06/01/20 14:15 16:56 20:55 WBC RBC Hgb Hct MCV MCH RDW Lymphocytes # Lymphocytes # (Manual) Metamyelocytes # (Man) Sodium Chloride 96 L Carbon Dioxide 31 H Anion Gap BUN 28 H Creatinine 2.10 H Est GFR (CKD-EPI)AfAm Est GFR (CKD-EPI)NonAf Glucose 111 H POC Glucose (mg/dL) 118 H 170 H Ferritin Lactate Dehydrogenase C-Reactive Protein Total Protein Procalcitonin Coronavirus (PCR) 06/02/20 06/02/20 06/02/20 06:27 06:27 07:05 WBC 2.36 L RBC 3.15 L Hgb 10.4 L Hct 32.1 L MCV 101.9 H MCH 33.0 H RDW 15.1 H Lymphocytes # Lymphocytes # (Manual) Metamyelocytes # (Man) Sodium Chloride 94 L Carbon Dioxide Anion Gap 14.50 H BUN 43.0 H Creatinine 2.9 H Est GFR (CKD-EPI)AfAm 23.6 L Est GFR (CKD-EPI)NonAf 20.4 L Glucose 193 H POC Glucose (mg/dL) 177 H Ferritin Lactate Dehydrogenase 288 H C-Reactive Protein 8.8 H Total Protein Procalcitonin Coronavirus (PCR) 06/02/20 11:48 WBC RBC Hgb Hct MCV MCH RDW Lymphocytes # Lymphocytes # (Manual) Metamyelocytes # (Man) Sodium Chloride Carbon Dioxide Anion Gap BUN Creatinine Est GFR (CKD-EPI)AfAm Est GFR (CKD-EPI)NonAf Glucose POC Glucose (mg/dL) 164 H Ferritin Lactate Dehydrogenase C-Reactive Protein Total Protein Procalcitonin Coronavirus (PCR) - Diagnostic Findings Chest x-ray: report reviewed, image reviewed Assessment and Plan Plan: Assessment: #1. Acute COVID-19 pneumonia, without hypoxemia or pulmonary symptoms #2. Lower extremity swelling and cellulitis, lower extremity Dopplers were negative for DVT #3. Chronic A. fib on Eliquis #4. CAD #5. ESRD on hemodialysis #6. Hypertension #7. Previous history of myocardial infarction #8. Hypertension #9. Osteoporosis #10. Obesity with BMI of 37.7 kg/m Plan: Patient has no pulmonary symptoms, no fever, no hypoxia, continue Decadron, he is ready on chronic anticoagulation, no other recommendations from pulmonary perspective, pulmonary service will sign off, he'll free to contact us if there is further worsening, he is clear for discharge from pulmonary perspective I performed a history & physical examination of the patient and discussed their management with my nurse practitioner, Michaelle Hopkins. I reviewed the nurse practitioner's note and agree with the documented findings and plan of care. Lung sounds are positive for renal crackles at the bases The findings and the impression was discussed with the patient. I attest to the documentation by the nurse practitioner. Time with Patient: Greater than 30
[2020-06-02 16:38] LABS: Glucose,Whole Blood 205 mg/dL (75-99)
[2020-06-02] MEDS: ATORVASTATIN 10 MG TAB PO SCH (17:24)
[2020-06-02] MEDS: FOLIC ACID 1 MG TAB PO SCH (17:24)
--- NOTE | 2020-06-02 18:00 | PN ---
PROGRESS NOTE DATE OF SERVICE: 06/02/2020 REASON FOR FOLLOWUP: Bilateral lower extremity cellulitis and venostasis dermatitis. INTERVAL HISTORY: The patient is currently afebrile. The patient is breathing comfortably. The patient denies having any chest pain or shortness of breath or cough. No abdominal pain. Lower extremity swelling and redness have improved. PHYSICAL EXAMINATION: Blood pressure 113/66, pulse of 73, temperature 97.5. He is 96% on room air. General description is an elderly male up in the chair in no distress. RESPIRATORY SYSTEM: Unlabored breathing with decreased intensity of breath sounds. No wheeze. HEART: S1, S2. Regular rate and rhythm. ABDOMEN: Soft. No tenderness. Lower extremity swelling and redness have slightly decreased. LABS: Hemoglobin is 10.4, white count 2.36. Creatinine is 2.9. CRP is 8.8. DIAGNOSTIC IMPRESSION AND PLAN: Patient with bilateral lower extremity venous dermatitis and cellulitis, failing outpatient oral doxycycline and Keflex. Did well on the vancomycin. Plan is to transition to oral Zyvox 600 mg twice a day for the week along with Dylan wrap to the to keep the swelling down. MMODL / IJN: [id number] /
[2020-06-02 20:44] LABS: Glucose,Whole Blood 170 mg/dL (75-99)
[2020-06-02] MEDS: MELATONIN 3 MG TABLET PO SCH (21:25)
[2020-06-03] MEDS: AMPICILLIN-SULBACTAM 3 GM in SODIUM CHLORIDE 0.9% 100 ML IVPB SCH (05:35)
[2020-06-03 07:04] LABS: Glucose,Whole Blood 159 mg/dL (75-99)
[2020-06-03] MEDS: CHOLECALCIFEROL 25 MCG (1000 IU) TABLET PO SCH (08:33)
[2020-06-03] MEDS: LORazepam 1 MG TAB PO SCH (08:34)
[2020-06-03] MEDS: FLUoxetine HCL 20 MG CAP PO SCH (08:34)
[2020-06-03] MEDS: APIXABAN 2.5 MG TABLET PO SCH (08:34)
[2020-06-03] MEDS: ZINC SULFATE 220 MG CAP PO SCH (08:35)
[2020-06-03] MEDS: GABAPENTIN 100 MG CAP PO SCH (08:35)
[2020-06-03] MEDS: PANTOPRAZOLE 40 MG TABLET PO SCH (08:35)
[2020-06-03] MEDS: dexAMETHasone 2 MG TAB PO SCH (08:35)
[2020-06-03] MEDS: ASCORBIC ACID 500 MG TAB PO SCH (08:35)
[2020-06-03] MEDS: TRIAMCINOLONE 0.1% CREAM 80 GM TUBE TOPICAL SCH (08:40)
[2020-06-03] MEDS: NYSTATIN 100,000UNIT/GM CREAM 30 GM TUBE TOPICAL SCH (08:40)
--- NOTE | 2020-06-03 10:53 | P.PN ---
Subjective Patient is seen in follow-up for end-stage renal disease. He is maintained on hemodialysis on Sunday schedule. Tolerating dialysis well. Receiving antibiotics for lower extremity cellulitis. Also positive for covid. Currently on room air. Wants to go home. Vital signs are stable. General: The patient appeared well nourished and normally developed. HEENT: Head exam is unremarkable. Neck is without jugular venous distension. LUNGS: Breath sounds decreased. HEART: Rate and Rhythm are regular. ABDOMEN: Soft, nontender. Obese. EXTREMITITES: 1+ edema. Chronic changes noted. No drainage. Objective - Vital Signs Vital signs: Vital Signs Temp 97.5 F L 06/03/20 10:25 Pulse 69 06/03/20 10:25 Resp 16 06/03/20 10:25 BP 146/69 06/03/20 10:25 Pulse Ox 95 06/03/20 10:25 Intake & Output 06/02/20 06/03/20 06/03/20 18:59 06:59 18:59 Intake Total 340 120 Output Total 220 Balance -220 340 120 Intake: Intake, IV Titration 340 Amount Ampicillin-Sulbactam 3 gm 340 In Sodium Chloride 0.9% 100 ml @ 200 mls/hr IVPB ONCE [facility] Rx#:[id number] Oral 120 Output: Urine 220 Other: Voiding Method Urinal Urinal # Voids 3 - Labs CBC & Chem 7: 06/02/20 06:27 06/02/20 06:27 Labs: Abnormal Lab Results - Last 24 Hours (Table) 06/02/20 06/02/20 06/02/20 Range/Units 06:27 06:27 11:48 WBC 2.36 L (4.50-10.00) X 10*3/uL RBC 3.15 L (4.40-5.60) X 10*6/uL Hgb 10.4 L (13.0-17.0) g/dL Hct 32.1 L (39.6-50.0) % MCV 101.9 H (80.0-97.0) fL MCH 33.0 H (27.0-32.0) pg RDW 15.1 H (11.5-14.5) % Chloride 94 L (96-109) mmol/L Anion Gap 14.50 H (4.00-12.00) mmol/L BUN 43.0 H (9.0-27.0) mg/dL Creatinine 2.9 H (0.6-1.5) mg/dL Est GFR (CKD-EPI)AfAm 23.6 L (60.0-200.0) Est GFR (CKD-EPI)NonAf 20.4 L (60.0-200.0) Glucose 193 H (70-110) mg/dL POC Glucose (mg/dL) 164 H (75-99) mg/dL Lactate Dehydrogenase 288 H (120-246) U/L C-Reactive Protein 8.8 H (0.0-0.8) mg/dL 06/02/20 06/02/20 06/03/20 Range/Units 16:35 20:41 06:59 WBC (4.50-10.00) X 10*3/uL RBC (4.40-5.60) X 10*6/uL Hgb (13.0-17.0) g/dL Hct (39.6-50.0) % MCV (80.0-97.0) fL MCH (27.0-32.0) pg RDW (11.5-14.5) % Chloride (96-109) mmol/L Anion Gap (4.00-12.00) mmol/L BUN (9.0-27.0) mg/dL Creatinine (0.6-1.5) mg/dL Est GFR (CKD-EPI)AfAm (60.0-200.0) Est GFR (CKD-EPI)NonAf (60.0-200.0) Glucose (70-110) mg/dL POC Glucose (mg/dL) 205 H 170 H 159 H (75-99) mg/dL Lactate Dehydrogenase (120-246) U/L C-Reactive Protein (0.0-0.8) mg/dL Microbiology - Last 24 Hours (Table) 05/30/20 14:18 Blood Culture - Preliminary Blood No Growth after 72 hours 05/30/20 14:10 Blood Culture - Preliminary Blood No Growth after 72 hours Assessment and Plan Plan: Assessment: 1. End-stage renal disease maintained on hemodialysis on Sunday schedule. 2. Lower extremity cellulitis maintained on antibiotics. 3. Hypertension with chronic kidney disease. Stable. 4. Chronic diastolic CHF. 5. COVID-19 infection. Currently on room air. Plan: Currently seen while undergoing hemodialysis. Phosphorus normal. Antibiotics per infectious disease. Monitor vancomycin levels. Target level near 15. Potential discharge today.
--- NOTE | 2020-06-03 11:37 | P.DS ---
Providers Date of admission: 05/30/20 16:00 Expected date of discharge: 06/03/20 Attending physician: Jignesh Mesa Consults: 05/30/20 16:02 Consult Physician Urgent Consulting Provider: Ehsan Barrientos Consult Reason/Comments: esrd on hd - , , sun Do you want consulting provider notified?: Yes Consult Physician Urgent Consulting Provider: Polo Alcantara Consult Reason/Comments: acute b/l le cellulitis, failed outpatient treatment Do you want consulting provider notified?: Yes 06/01/20 15:30 Consult Physician Routine Consulting Provider: Kobi Swartz Consult Reason/Comments: COVID positive Do you want consulting provider notified?: Yes Primary care physician: Jerod Braun MD Hospital Course: Discharge Diagnosis: Bilateral lower extremity cellulitis, failed outpatient treatment Covid 19 virus infection Acute on Chronic diastolic heart failure End-stage renal disease on dialysis Chronic Paroxysmal atrial fibrillation on anticoagulation with Eliquis Hypertension Hyperlipidemia History of CAD with previous ND and stent placement Hospital Course: Patient is a 75-year-old male with a past medical history of CAD with previous ND resulting in stent placement, chronic diastolic heart failure with an EF of 50-55%, hypertension, hyperlipidemia, ESRD on dialysis Tuesdays//Saturdays, chronic bilateral lower extremity swelling, and chronic back pain. Patient presented to the hospital on 05/30/20 for evaluation of weeping wounds on his lower extremities resulting from chronic bilateral lower extremity edema. Patient was found to have bilateral lower extremity cellulitis and was started on IV antibiotics Unasyn and vancomycin after failed outpatient treatment. Patient also tested positive for Covid 19 virus infection. Patient admitted under our services along with consultation to infectious disease for cellulitis after failing outpatient treatment, nephrology for needed dialysis, and pulmonology for Covid 19 virus infection. Bilateral lower extremity venous Dopplers were negative for DVT. CBC revealing leukopenia with WBC count of 2.36. BMP consistent with ESRD with BUN of 43 dialysis to be completed tomorrow. Inflammatory markers improving with LDH of 288 down from previous 585in CRP of 8.8 down from previous 51.8.-Repeat chest x-ray completed 06/02/20 revealing cardiomegaly with chronic changes with left greater than right patchy bibasilar atelectasis and/or infiltrate slight interval progression from most recent x-ray. Patient's condition stable. He is being discharged home and instructed to follow up with his PCP-Dr. Braun for a post hospitalization follow up in 2-3 days. Arrangements have been made for home care as well as transportation to and from dialysis at [facility] through 06/15/20 when pt will be done with quarantine and will then be able to return to his normal dialysis center. Patient being sent home on Zyvox 600 mg twice daily for treatment of his bilateral lower extremity cellulitis and to follow up outpatient with infectious disease specialist Dr. Alcantara in one week. He is also being sent home on a 7 day course of Decadron to receive a total of 10 days of steroid treatment along with melatonin, zinc, Vitamin C, and Vitamin D and to follow up with staff services manager in 2-3 weeks. Physical exam: 06/03/20: Patient seen and evaluated at bedside this morning. Patient was getting started on his dialysis and is very eager to be discharged home. He denies having any complaints. Denies chest pain, shortness of breath or cough. He has shown slight improvement in his lower extremity edema. His vital signs have been stable and he has shown no further episodes of hypoxia at rest or with ambulation. Plan for discharge home after dialysis. General: non toxic, no distress, appears at stated age Derm: warm, dry Head: atraumatic, normocephalic, symmetric Eyes: EOMI, no lid lag, anicteric sclera Mouth: no lip lesion, mucus membranes moist Cardiovascular: S1S2 reg, no murmur, positive posterior tibial pulses bilaterally, AV fistula left upper extremity with bruit and thrill intact. Lungs: Respirations even, regular, and unlabored on room air. SpO2 90%. Lungs diminished with diffuse rhonchi present. Abdominal: soft, nontender to palpation, no guarding, no appreciable organomegaly Ext: no gross muscle atrophy, no contractures. Patient with moderate 2-3+ pitting edema in bilateral lower extremities accompanied by significant erythema. Slight improvement in lower extremity edema and skin is no longer weaping and is drying out and peeling. Neuro: CN II-XI grossly intact, no focal neuro deficits. Psych: Alert, oriented, appropriate affect A total of 45 minutes of time were spent preparing this complex discharge summary. Patient Condition at Discharge: Stable Plan - Discharge Summary Discharge Rx Participant: Yes New Discharge Prescriptions: New Nystatin 100,000Unit/gm Cream [Mycostatin Cream] 1 applic TOPICAL BID 7 Days #1 cream Ascorbic Acid [Vitamin C] 1,000 mg PO DAILY 30 Days #30 tab dexAMETHasone ORAL [Hexadrol] 6 mg PO DAILY 7 Days #21 tab Triamcinolone 0.1% Cream [Kenalog 0.1% Cream] 1 applic TOPICAL BID 7 Days #1 cream Melatonin 5 mg PO HS 30 Days #30 tablet Zinc Sulfate [Orazinc] 220 mg PO DAILY 30 Days #30 cap Cholecalciferol [Vitamin D3 (25 Mcg = 1000 Iu)] 100 mcg PO DAILY 30 Days #30 tablet Linezolid [Zyvox] 600 mg PO Q12H 7 Days #14 tab Continue Ranolazine [Ranexa] 1,000 mg PO BID@1000,2200 rOPINIRole HCL [Requip] 1 mg PO TID@0000,1000,1700 Nitroglycerin Sl Tabs [Nitrostat] 0.4 mg SL Q5M PRN PRN Reason: Chest Pain Folic Acid 1 mg PO DAILY@1700 Polyethylene Glycol 3350 [Miralax] 17 gm PO HS@0000 NIFEdipine XL [Procardia XL] 30 mg PO DAILY@1000 Terazosin [Hytrin] 8 mg PO HS@0000 LORazepam [Ativan] 1 mg PO BID@1000,2200 Furosemide [Lasix] 60 mg PO TID@0000,1000,1700 Gabapentin [Neurontin] 100 mg PO BID@1000,2200 Isosorbide Mononitrate ER [Imdur] 30 mg PO DAILY@1000 oxyCODONE HCL [Roxicodone] 10 mg PO HS@0000 oxyCODONE HCL [Roxicodone] 5 mg PO BID@1000,1700 Apixaban [Eliquis] 2.5 mg PO BID@1000,2200 Rosuvastatin [Crestor] 5 mg PO MOWEFR@1700 Discontinued FLUoxetine HCL [PROzac] 20 mg PO DAILY@1000 Doxycycline [Vibramycin] 100 mg PO BID 10 Days #20 capsule Cephalexin [Keflex] 500 mg PO Q6HR 10 Days #40 cap Discharge Medication List Ranolazine [Ranexa] 1,000 mg PO BID@1000,2200 04/27/17 [History] Nitroglycerin Sl Tabs [Nitrostat] 0.4 mg SL Q5M PRN 05/07/19 [History] rOPINIRole HCL [Requip] 1 mg PO TID@0000,1000,1700 05/07/19 [History] Folic Acid 1 mg PO DAILY@17008/12/19 [History] Polyethylene Glycol 3350 [Miralax] 17 gm PO HS@0000 08/12/19 [History] Furosemide [Lasix] 60 mg PO TID@0000,1000,1700 09/27/19 [History] Gabapentin [Neurontin] 100 mg PO BID@1000,22009/27/19 [History] LORazepam [Ativan] 1 mg PO BID@1000,2200 09/27/19 [History] NIFEdipine XL [Procardia XL] 30 mg PO DAILY@1000 09/27/19 [History] Terazosin [Hytrin] 8 mg PO HS@0000 09/27/19 [History] Isosorbide Mononitrate ER [Imdur] 30 mg PO DAILY@1000 10/28/19 [History] oxyCODONE HCL [Roxicodone] 10 mg PO HS@0000 10/28/19 [History] Apixaban [Eliquis] 2.5 mg PO BID@1000,2200 01/27/20 [History] Rosuvastatin [Crestor] 5 mg PO MOWEFR@1700 01/27/20 [History] oxyCODONE HCL [Roxicodone] 5 mg PO BID@1000,1700 01/27/20 [History] Ascorbic Acid [Vitamin C] 1,000 mg PO DAILY 30 Days #30 tab 06/03/20 [Rx] Cholecalciferol [Vitamin D3 (25 Mcg = 1000 Iu)] 100 mcg PO DAILY 30 Days #30 tablet 06/03/20 [Rx] Linezolid [Zyvox] 600 mg PO Q12H 7 Days #14 tab 06/03/20 [Rx] Melatonin 5 mg PO HS 30 Days #30 tablet 06/03/20 [Rx] Nystatin 100,000Unit/gm Cream [Mycostatin Cream] 1 applic TOPICAL BID 7 Days #1 cream 06/03/20 [Rx] Triamcinolone 0.1% Cream [Kenalog 0.1% Cream] 1 applic TOPICAL BID 7 Days #1 cream 06/03/20 [Rx] Zinc Sulfate [Orazinc] 220 mg PO DAILY 30 Days #30 cap 06/03/20 [Rx] dexAMETHasone ORAL [Hexadrol] 6 mg PO DAILY 7 Days #21 tab 06/03/20 [Rx] Follow up Appointment(s)/Referral(s): Jerod Braun MD [Primary Care Provider] - 1-2 days Kobi Swartz DO [Doctor of Osteopathic Medicine] - 2 Weeks [facility] [NON-STAFF] - Polo Alcantara MD [STAFF PHYSICIAN] - 1 Week Patient Instructions/Handouts: Coronavirus Disease 2019 (COVID-19), Cellulitis (DC) Activity/Diet/Wound Care/Special Instructions: Activity: As tolerated, please take it slow and don't hesitate to take rests as needed!!! Diet: Renal diet heart healthy carb consistent Wound Care: You are being sent home with homecare, wound care to be provided by home care including soaking of bilateral lower extremities, applying cream, and keeping legs wrapped to assist with swelling. Special Instructions: Your Dialysis will be at the [facility] until 06/15/20. They have arranged for a wheelchair van to transport you to and from. If you do not hear from them by Sunday, please call [facility] at [phone]. It is important to take her medications as directed, please do not miss any doses and if a dose is missed it is important to take as soon as you remember. We are asking that you stop taking your home Fluoxetin (Prozac) for the next seven days only because it can interfere with antibiotic you are being placed on. It is safe to resume this medication once you have completed your 7 day course of antibiotics. Please follow-up with your PCP, Dr. Braun in 1-2 days for post hospitalization follow-up. Please schedule an appointment with Dr. Alcantara, infectious disease in 1 week for reevaluation. Please schedule an appointment with Dr. Swartz, staff services manager in 2 weeks. Continue to follow up with her enterprise engineer as previously scheduled. It was truly a pleasure having the opportunity to participate in your care!! I wish both you and your a speedy recovery!! Discharge Disposition: HOME WITH HOME HEALTH SERVICES
[2020-06-03 11:42] LABS: Glucose,Whole Blood 157 mg/dL (75-99)
[2020-06-03] MEDS: FUROSEMIDE 20 MG TAB PO SCH (12:41)
[2020-06-03] MEDS: RANOLAZINE 500 MG TAB.ER.12H PO SCH (12:41)
[2020-06-03] MEDS: NIFEdipine XL 30 MG TAB.ER.24 PO SCH (12:41)
[2020-06-03] MEDS: ISOSORBIDE MONONITRATE ER 30 MG TAB.ER.24H PO SCH (12:41)
[2020-06-03 13:52] VITALS: BP 127/62; PULSE 75; RESP 18; TEMP 99.7
== END 2020-06-03 16:05 | disposition home health service (06) | DRG 602 ==
LOC: EC 12:30 → 4SSUR 16:00
PROVIDERS: ADMIT Internal Medicine; ATTEND Internal Medicine
PROC: 5A1D70Z Performance of Urinary Filtration, Intermittent, Less than 6 Hours Per Day (ICD-10-PCS; principal; 2020-05-31)
DX: L03.115 Cellulitis of right lower limb (principal); N18.6 End stage renal disease; U07.1 COVID-19; I50.33 Acute on chronic diastolic (congestive) heart failure; J12.82 Pneumonia due to coronavirus disease 2019; I13.2 Hypertensive heart and chronic kidney disease with heart failure and with stage 5 chronic kidney disease, or end stage renal disease; I48.20 Chronic atrial fibrillation, unspecified; I27.20 Pulmonary hypertension, unspecified; G25.81 Restless legs syndrome; Z99.2 Dependence on renal dialysis; E66.01 Morbid (severe) obesity due to excess calories; L03.116 Cellulitis of left lower limb; Z66 Do not resuscitate; F32.9 Major depressive disorder, single episode, unspecified; D72.810 Lymphocytopenia; G89.29 Other chronic pain; M54.5 Low back pain; I25.10 Atherosclerotic heart disease of native coronary artery without angina pectoris; K21.9 Gastro-esophageal reflux disease without esophagitis; E78.5 Hyperlipidemia, unspecified; I35.8 Other nonrheumatic aortic valve disorders; G31.84 Mild cognitive impairment of uncertain or unknown etiology; I25.2 Old myocardial infarction; I87.2 Venous insufficiency (chronic) (peripheral); I87.8 Other specified disorders of veins; H26.9 Unspecified cataract; M19.90 Unspecified osteoarthritis, unspecified site; M81.0 Age-related osteoporosis without current pathological fracture; I89.0 Lymphedema, not elsewhere classified; Z79.01 Long term (current) use of anticoagulants; Z68.37 Body mass index [BMI] 37.0-37.9, adult; Z79.891 Long term (current) use of opiate analgesic; Z79.899 Other long term (current) drug therapy; Z87.440 Personal history of urinary (tract) infections; Z77.098 Contact with and (suspected) exposure to other hazardous, chiefly nonmedicinal, chemicals; Z95.5 Presence of coronary angioplasty implant and graft; Z90.89 Acquired absence of other organs; Z87.39 Personal history of other diseases of the musculoskeletal system and connective tissue; Z98.890 Other specified postprocedural states; Z88.8 Allergy status to other drugs, medicaments and biological substances; Z80.3 Family history of malignant neoplasm of breast; Z82.49 Family history of ischemic heart disease and other diseases of the circulatory system
CPT/HCPCS: 36415; 71045; 80048; 80053; 80202; 82310; 82728; 83605; 83615; 83735; 83880; 84100; 84145; 85025; 85027; 85379; 86140; 87040; 87635; 90935; 93970; 96365; 99285

== ENCOUNTER 2020-06-04 15:49 | Inpatient (IN) | payer MEDICARE, OTHER ==
[2020-06-04 16:57] LABS: Basophils % (A) 1 %; Eosinophils # (A) 0.1 k/uL (0-0.7); Eosinophils % (A) 1 %; HCT 31.8 % (39.0-53.0); HGB 11.1 gm/dL (13.0-17.5); Lymphocytes # (A) 0.2 k/uL (1.0-4.8); Lymphocytes % (A) 2 %; MCH 33.8 pg (25.0-35.0); MCV 96.6 fL (80.0-100.0); Mean Platelet Volume 8.2; Monocytes # (A) 0.2 k/uL (0-1.0); Monocytes % (A) 2 %; Neutrophils # (A) 8.2 k/uL (1.3-7.7); Neutrophils % (A) 93 %; Platelet Count 219 k/uL (150-450); RBC 3.29 m/uL (4.30-5.90); RDW 14.2 % (11.5-15.5); WBC 8.8 k/uL (3.8-10.6)
[2020-06-04 17:10] LABS: D-Dimer 0.52 mg/L FEU (<0.60); INR 1.2 (<1.2); Partial Thromboplastin Time 31.1 sec (22.0-30.0); Prothrombin Time 12.5 sec (9.0-12.0)
[2020-06-04 17:13] LABS: Albumin 3.9 g/dL (3.5-5.0); Calcium 8.4 mg/dL (8.4-10.2); Potassium 4.9 mmol/L (3.5-5.1); Total Bilirubin 0.9 mg/dL (0.2-1.3); Total Protein 7.9 g/dL (6.3-8.2)
[2020-06-04] MEDS ORDERED: NALOXONE 0.4 MG/ML 1 ML VIAL IV PRN ×2 (17:13→17:24)
[2020-06-04] MEDS ORDERED: ACETAMINOPHEN TAB 325 MG TAB PO PRN (17:13)
--- NOTE | 2020-06-04 17:13 | ED ---
General Adult HPI - General Stated complaint: covid+/coughing blood Time Seen by Provider: 06/04/20 16:30 Source: patient Mode of arrival: ambulatory Limitations: no limitations - History of Present Illness Initial comments: Patient is a 75-year-old male past history of end-stage renal disease on hemodialysis, A. fib on [place], heart failure who presents to the emergency department with reported shortness of breath. EMS found the patient saturating in the 70s. He does arrive and is 86% on room air. Patient was recently discharged from the hospital yesterday. He had been hospitalized for bilateral lower extremity cellulitis with failed outpatient treatment. He was tested for Covid just for placement on the floor and was found to be positive. He was not having any symptoms at that time. Patient was discharged home on antibiotics for his lower extremity cellulitis and Decadron for Covid. Patient reportedly became more short of breath overnight and began coughing up blood. States that it is streaks in his mucus. Denies significant hemoptysis. No chest pain. Admits nausea. Mild diarrhea. No other alleviating, precipitating or modifying factors - Related Data Home Medications Medication Instructions Recorded Confirmed Ranolazine [Ranexa] 1,000 mg PO BID@1000,2200 04/27/17 06/04/20 Nitroglycerin Sl Tabs [Nitrostat] 0.4 mg SL Q5M PRN 05/07/19 06/04/20 rOPINIRole HCL [Requip] 1 mg PO TID@0000,1000,1700 05/07/19 06/04/20 Folic Acid 1 mg PO DAILY@1700 08/12/19 06/04/20 Polyethylene Glycol 3350 [Miralax] 17 gm PO HS@0000 08/12/19 06/04/20 Furosemide [Lasix] 60 mg PO TID@0000,1000,1700 09/27/19 06/04/20 Gabapentin [Neurontin] 100 mg PO BID@1000,2200 09/27/19 06/04/20 LORazepam [Ativan] 1 mg PO BID@1000,2200 09/27/19 06/04/20 NIFEdipine XL [Procardia XL] 30 mg PO DAILY@1000 09/27/19 06/04/20 Terazosin [Hytrin] 8 mg PO HS@0000 09/27/19 06/04/20 Isosorbide Mononitrate ER [Imdur] 30 mg PO DAILY@1000 10/28/19 06/04/20 oxyCODONE HCL [Roxicodone] 10 mg PO HS@0000 10/28/19 06/04/20 Apixaban [Eliquis] 2.5 mg PO BID@1000,2200 01/27/20 06/04/20 Rosuvastatin [Crestor] 5 mg PO MOWEFR@1700 01/27/20 06/04/20 oxyCODONE HCL [Roxicodone] 5 mg PO BID@1000,1700 01/27/20 06/04/20 Previous Rx's Medication Instructions Recorded Ascorbic Acid [Vitamin C] 1,000 mg PO DAILY 30 Days #30 06/03/20 tablet Cholecalciferol [Vitamin D3 (25 100 mcg PO DAILY 30 Days #30 tablet 06/03/20 Mcg = 1000 Iu)] Clindamycin [Cleocin] 450 mg PO Q8H 5 Days #15 cap 06/03/20 Dexamethasone [Decadron] 6 mg PO DAILY 7 Days #7 tablet 06/03/20 Melatonin 5 mg PO HS 30 Days #30 tablet 06/03/20 Nystatin 100,000Unit/gm Cream 1 applic TOPICAL BID 7 Days #1 06/03/20 [Mycostatin Cream] cream Triamcinolone 0.1% Cream [Kenalog 1 applicatio TOPICAL BID 7 Days #1 06/03/20 0.1% Cream] tube Zinc Sulfate [Orazinc] 220 mg PO DAILY 30 Days #30 capsule 06/03/20 Allergies Allergy/AdvReac Type Severity Reaction Status Date / Time pravastatin Allergy Rash/Hives Verified 06/04/20 17:01 amlodipine AdvReac CONSTIPATIO Verified 06/04/20 17:01 N atenolol AdvReac MALE ED Verified 06/04/20 17:01 hydrochlorothiazide AdvReac RENAL Verified 06/04/20 17:01 IMPAIRMENT Review of Systems ROS Statement: Those systems with pertinent positive or pertinent negative responses have been documented in the HPI. ROS Other: All systems not noted in ROS Statement are negative. Past Medical History Past Medical History: Atrial Fibrillation, Coronary Artery Disease (CAD), Chest Pain / Angina, Heart Failure, Eye Disorder, Hypertension, Myocardial Infarction ([place]), Osteoarthritis (OA), Renal Disease Additional Past Medical History / Comment(s): Dialysis TU, TH, SAT, Past bradycardia/hyperkalemia, UTIs, chronic lymphedema, bilateral lower leg cellulitis,RLS, chronic low back pain/bulging/herniated discs-sleeps in a recliner, past gout, indirect exposure to agent orange, cataracts, R index finge r injury/surgery with limited ROM.. Last Myocardial Infarction Date:: 2009 History of Any Multi-Drug Resistant Organisms: None Reported Date of last positivie culture/infection: None MDRO Source:: None Past Surgical History: Heart Catheterization With Stent, Tonsillectomy Additional Past Surgical History / Comment(s): [id number] stents, rt hand sx to repair severed lig/tendons(age 20). current dialysis catheter Past Anesthesia/Blood Transfusion Reactions: No Reported Reaction Additional Past Anesthesia/Blood Transfusion Reaction / Comment(s): clausterphobia Date of Last Stent Placement:: 2009 Past Psychological History: Depression Smoking Status: Never smoker Past Alcohol Use History: None Reported Past Drug Use History: None Reported - Past Family History Mother Family Medical History: Cancer Additional Family Medical History / Comment(s): breast cancer, heart problems was on warfarin(pt stated she bled out) Father Family Medical History: Coronary Artery Disease (CAD), Myocardial Infarction ([place]) Additional Family Medical History / Comment(s): Father had his 1st [place] in his 50s and then from his 2nd [place] at the age of 74yrs. General Exam Limitations: no limitations Course Vital Signs 06/04/20 06/04/20 06/04/20 16:00 16:30 16:33 Temperature 98.1 F Pulse Rate 79 Pulse Rate [ 78 Director Inpatient Headache Program ] Respiratory 24 23 Rate Blood Pressure 121/73 O2 Sat by Pulse 87 L 86 L Oximetry 06/04/20 06/04/20 06/04/20 16:39 17:00 17:30 Temperature Pulse Rate 76 68 75 Pulse Rate [ Director Inpatient Headache Program ] Respiratory 23 26 H 24 Rate Blood Pressure 121/73 O2 Sat by Pulse 90 L 90 L Oximetry 06/04/20 06/04/20 06/04/20 18:00 19:00 20:00 Temperature Pulse Rate 61 68 68 Pulse Rate [ Director Inpatient Headache Program ] Respiratory 24 25 H 24 Rate Blood Pressure 111/65 124/66 119/72 O2 Sat by Pulse 85 L 87 L 88 L Oximetry 06/04/20 06/04/20 06/04/20 20:15 20:29 21:00 Temperature Pulse Rate 66 Pulse Rate [ Director Inpatient Headache Program ] Respiratory 23 20 Rate Blood Pressure 114/75 O2 Sat by Pulse 84 L 90 L 85 L Oximetry 06/04/20 06/04/20 06/04/20 21:48 22:00 23:00 Temperature Pulse Rate 60 67 Pulse Rate [ Director Inpatient Headache Program ] Respiratory 26 H 22 23 Rate Blood Pressure 118/74 114/64 O2 Sat by Pulse 89 L 88 L 90 L Oximetry EKG Findings - EKG Comments: EKG Findings:: EKG demonstrates A. fib with a rate of 76. QRS 80. QTC of 459. No acute ST segment elevations. PVC present Medical Decision Making - Medical Decision Making Upon arrival patient is placed in room 27. A thorough history and physical exam was performed. Patient is placed on supplemental oxygen. Laboratory studies are conducted. Lactic acid 2.1. Creatinine 3.6. Sodium 128. Chest x-ray demonstrates increased pulmonary edema. Results are discussed with the patient. Results are also discussed with Dr. Reddy who agreed to admit the patient. Will place him analogy nephrology on consult. Patient remained in stable condition awaiting a bed on the floor - Lab Data Result diagrams: 06/04/20 16:51 06/04/20 16:51 Lab Results 06/04/20 06/04/20 06/04/20 Range/Units 16:51 16:51 16:51 WBC 8.8 (3.8-10.6) k/uL RBC 3.29 L (4.30-5.90) m/uL Hgb 11.1 L (13.0-17.5) gm/dL Hct 31.8 L (39.0-53.0) % MCV 96.6 (80.0-100.0) fL MCH 33.8 (25.0-35.0) pg MCHC 35.0 (31.0-37.0) g/dL RDW 14.2 (11.5-15.5) % Plt Count 219 (150-450) k/uL MPV 8.2 Neutrophils % 93 % Lymphocytes % 2 % Monocytes % 2 % Eosinophils % 1 % Basophils % 1 % Neutrophils # 8.2 H (1.3-7.7) k/uL Lymphocytes # 0.2 L (1.0-4.8) k/uL Monocytes # 0.2 (0-1.0) k/uL Eosinophils # 0.1 (0-0.7) k/uL Basophils # 0.0 (0-0.2) k/uL PT 12.5 H (9.0-12.0) sec INR 1.2 H (<1.2) APTT 31.1 H (22.0-30.0) sec D-Dimer 0.52 (<0.60) mg/L FEU Sodium 128 L (137-145) mmol/L Potassium 4.9 (3.5-5.1) mmol/L Chloride 90 L (98-107) mmol/L Carbon Dioxide 25 (22-30) mmol/L Anion Gap 13 mmol/L BUN 59 H (9-20) mg/dL Creatinine 3.68 H (0.66-1.25) mg/dL Est GFR (CKD-EPI)AfAm 18 (>60 ml/min/1.73 sqM) Est GFR (CKD-EPI)NonAf 15 (>60 ml/min/1.73 sqM) Glucose 175 H (74-99) mg/dL Plasma Lactic Acid Harman (0.7-2.0) mmol/L Calcium 8.4 (8.4-10.2) mg/dL Magnesium 1.9 (1.6-2.3) mg/dL Total Bilirubin 0.9 (0.2-1.3) mg/dL AST 36 (17-59) U/L ALT 15 (4-49) U/L Alkaline Phosphatase 75 (38-126) U/L Lactate Dehydrogenase 937 H (313-618) U/L C-Reactive Protein 6.6 H (<1.0) mg/dL Total Protein 7.9 (6.3-8.2) g/dL Albumin 3.9 (3.5-5.0) g/dL 06/04/20 Range/Units 16:51 WBC (3.8-10.6) k/uL RBC (4.30-5.90) m/uL Hgb (13.0-17.5) gm/dL Hct (39.0-53.0) % MCV (80.0-100.0) fL MCH (25.0-35.0) pg MCHC (31.0-37.0) g/dL RDW (11.5-15.5) % Plt Count (150-450) k/uL MPV Neutrophils % % Lymphocytes % % Monocytes % % Eosinophils % % Basophils % % Neutrophils # (1.3-7.7) k/uL Lymphocytes # (1.0-4.8) k/uL Monocytes # (0-1.0) k/uL Eosinophils # (0-0.7) k/uL Basophils # (0-0.2) k/uL PT (9.0-12.0) sec INR (<1.2) APTT (22.0-30.0) sec D-Dimer (<0.60) mg/L FEU Sodium (137-145) mmol/L Potassium (3.5-5.1) mmol/L Chloride (98-107) mmol/L Carbon Dioxide (22-30) mmol/L Anion Gap mmol/L BUN (9-20) mg/dL Creatinine (0.66-1.25) mg/dL Est GFR (CKD-EPI)AfAm (>60 ml/min/1.73 sqM) Est GFR (CKD-EPI)NonAf (>60 ml/min/1.73 sqM) Glucose (74-99) mg/dL Plasma Lactic Acid Harman 2.1 H* (0.7-2.0) mmol/L Calcium (8.4-10.2) mg/dL Magnesium (1.6-2.3) mg/dL Total Bilirubin (0.2-1.3) mg/dL AST (17-59) U/L ALT (4-49) U/L Alkaline Phosphatase (38-126) U/L Lactate Dehydrogenase (313-618) U/L C-Reactive Protein (<1.0) mg/dL Total Protein (6.3-8.2) g/dL Albumin (3.5-5.0) g/dL Disposition Clinical Impression: COVID-19, Hemoptysis, Hypoxia, ESRD (end stage renal disease) Disposition: ADMITTED IP TO THIS [facility] Condition: Serious Is patient prescribed a controlled substance at d/c from ED?: No Decision to Admit Reason: Admit from EC Decision Date: 06/04/20 Decision Time: 17:13
[2020-06-04] MEDS ORDERED: DEXAMETHASONE SOD PHOSPHATE 10 MG/ML 1 ML VIAL IV ONE (17:15)
[2020-06-04 17:17] LABS: C Reactive Protein 6.6 mg/dL (<1.0); Magnesium 1.9 mg/dL (1.6-2.3)
--- NOTE | 2020-06-04 17:17 | XR ---
EXAMINATION TYPE: XR chest 1V portable DATE OF EXAM: 06/04/2020 COMPARISON: 06/02/2020 HISTORY: Pneumonia. Short of breath. TECHNIQUE: FINDINGS: There is pulmonary interstitial and airspace edema. Heart is borderline enlarged. Thoracic aorta is atheromatous. IMPRESSION: Increased pulmonary edema compared to recent exam and consistent with RDS or heart failur e.
[2020-06-04] MEDS: oxyCODONE-APAP 5-325MG 1 EACH TAB PO PRN (17:50)
[2020-06-04] MEDS: ALPRAZolam 0.25 MG TAB PO PRN (17:50)
[2020-06-04] MEDS: ZINC SULFATE 220 MG CAP PO SCH (17:55)
[2020-06-04] MEDS ORDERED: REMDESIVIR 200 MG in SODIUM CHLORIDE 0.9% 250 ML IVPB ONE (18:00)
--- NOTE | 2020-06-04 18:19 | P.HPIM ---
History of Present Illness H&P Date: 06/04/20 History of presenting illness: Patient is a 75-year-old male with a past medical history of CAD with previous MD resulting in stent placement, chronic diastolic heart failure with an EF of 50-55%, hypertension, hyperlipidemia, ESRD on dialysis Tuesdays/Sun/Saturdays (last dialysis treatment session 06/03/20), chronic bilateral lower extremity swelling, chronic back pain, recent diagnosis and hospitalization for bilateral lower extremity cellulitis currently taking clindamycin 450 mg every 8 hours, and recent diagnosis of Covid 19 virus infection on 05/30/20. Patient had recent admission to the hospital from 05/30/20 through 06/03/20 for treatment of cellulitis of bilateral lower extremities feeling outpatient treatment and was subsequently diagnosed with Covid 19 virus infection in which patient at that time was asymptomatic of symptoms. Patient was discharged home on oral antibiotic clindamycin for treatment of his cellulitis, along with Decadron, melatonin, zinc, vitamin C, and vitamin D for diagnosis of Covid 19. Patient remained asymptomatic upon arrival home yesterday, but both he and his family reports that shortly after awakening this morning he began having a frequent coarse cough and shortness of breath which progressively worsened throughout the day and was accompanied by episodes of hemoptysis. Family reports that they placed a pulse ox onto his finger and patient's SpO2 was in the 70s. Patient's son called EMS to transfer his father to the hospital. Upon arrival to the emergency department, patient was found to be in significant respiratory distress requiring oxygen supplementation of 8 L O2 via high flow nasal cannula maintaining SpO2 of 90%. A chest x-ray was completed and reported to have increased pulmonary edema consistent with ARDS vs heart failure. CBC showing mild normocytic normochromic anemia with hemoglobin of 11.1, BMP revealing hyponatremia with sodium of 128, hypochloremia with chloride of 90 and renal function consistent with ESRD with BUN of 59, creatinine of 3.68, and GFR of 15. Lactate 2.1, LDH 937, and CRP 6.6. D-dimer normal findings at 0.52. Patient admitted under our services for acute respiratory failure with hypoxia secondary to Covid pneumonitis and acute on chronic exacerbation of diastolic CHF. Consults also placed to nephrology to continue dialysis, pulmonology secondary to hypoxia, and wound care secondary to bilateral lower extremity cellulitis. Upon examination at bedside, patient reports increased cough, episodes of hemoptysis, and significant shortness of breath beginning this morning shortly after waking up and progressively worsened throughout the day. He reports shortness of breath increased with any exertion, but did not improve with rest. He denies fevers, chills, chest pain or palpitations, abdominal pain, nausea, vomiting, or experiencing any numbness/tingling/weakness in his extremities. Review of Systoms: Pertinent positives and negatives as discussed in HPI, a complete review of systems was performed and all other systems are negative. Physical exam: General: non toxic,showing mild distress secondary to increased respiratory effort, appears at stated age Derm: warm, dry Head: atraumatic, normocephalic, symmetric Eyes: EOMI, no lid lag, anicteric sclera Mouth: no lip lesion, mucus membranes moist Cardiovascular: S1S2 reg, no murmur, positive posterior tibial pulses bilaterally, AV fistula left upper extremity with bruit and thrill intact. Lungs: Respirations tachypneic with increased work of breathing and slightly labored. Patient on 8 L high flow nasal cannula with SpO2 of 90%. Lungs with diffuse coarse rhonchi bilaterally. Abdominal: obese abdomen soft, nontender to palpation, no guarding, no appreciable organomegaly Ext: no gross muscle atrophy, no contractures. Patient with moderate 3+ pitting edema in bilateral lower extremities accompanied by significant erythema. Neuro: GCS 15. CN II-XI grossly intact, no focal neuro deficits. Psych: Alert, oriented, appropriate affect Assessment and Plan of care: Acute respiratory failure with hypoxia secondary to Covid pneumonitis -Covid PCR positive on 05/30/20 -Patient was asymptomatic until 06/04/20 in which he developed sudden onset shortness of breath and cough resulting in respiratory distress. -A chest x-ray was completed and reported to have increased pulmonary edema consistent with ARDS vs heart failure. -Lactate 2.1, LDH 937, and CRP 6.6. D-dimer normal findings at 0.52. -Patient to be provided with oxygen supplementation as needed to maintain SpO2 equal to or greater than 90%. Currently on 8 L high flow nasal cannula maintaining SpO2 at 89-90%. -Decadron 6 mg daily. -Zinc, vitamin D, vitamin C, and melatonin. -Remdesivir first dose ordered. -Pulmonology consulted, appreciate further recommendations. Acute on Chronic diastolic heart failure -A chest x-ray was completed and reported to have increased pulmonary edema consistent with ARDS vs heart failure. -ProBNP and troponin ordered at this time. -Lasix 40 mg IVP 3 times daily -Echocardiogram completed 09/20/19 revealed a preserved EF of 50-55% with mild aortic valve sclerosis and mild pulmonary hypertension. -Repeat echocardiogram. -Consult cardiology. -Close monitoring of I's and O's Hyponatremia secondary to fluid volume overload resulting from acute on chronic diastolic heart failure -Sodium 128 -Lasix 40 mg IVP 3 times daily -Continue to monitor closely with repeat a.m. labs. Bilateral lower extremity cellulitis -Continue oral antibiotics with clindamycin 450 mg every 8 hours -Consult to wound care -Symptomatic care and pain management, encourage elevation. End-stage renal disease on dialysis -Continue dialysis. -Nephrology following. -Will monitor renal function and electrolyte values closely with repeat a.m. labs. Chronic Paroxysmal atrial fibrillation on anticoagulation with Eliquis -Continue anticoagulation with Eliquis. -Continue Procardia 30 mg daily. Hypertension -Monitor vital signs and continue daily medication management. Hyperlipidemia -Continue daily medication management. -Renal diet. History of CAD with previous MD and stent placement -Continue daily medication management with Imdur, Lasix, atorvastatin, and Eliquis. Patient being admitted for anticipated greater than 2 night stay for treatment of acute respiratory failure with hypoxia secondary to Covid Chronic diastolic heart failure. CODE STATUS: DO NOT RESUSCITATE DVT prophylaxis: Eliquis Discussed with: Patient and RN, along with pt's Mayra. Anticipated discharge date: Clinical course to determine. Anticipated discharge place: Home with homecare A total of 45 minutes was spent on the care of this complex patient more than 50% of the time was spent in counseling and care coordination. Past Medical History Past Medical History: Atrial Fibrillation, Coronary Artery Disease (CAD), Chest Pain / Angina, Heart Failure, Eye Disorder, Hypertension, Myocardial Infarction (MD), Osteoarthritis (OA), Renal Disease Additional Past Medical History / Comment(s): Dialysis , , SAT, Past bradycardia/hyperkalemia, UTIs, chronic lymphedema, bilateral lower leg cellulitis,RLS, chronic low back pain/bulging/herniated discs-sleeps in a recliner, past gout, indirect exposure to agent orange, cataracts, R index finger injury/surgery with limited ROM.. Last Myocardial Infarction Date:: 2009 History of Any Multi-Drug Resistant Organisms: None Reported Date of last positivie culture/infection: None MDRO Source:: None Past Surgical History: Heart Catheterization With Stent, Tonsillectomy Additional Past Surgical History / Comment(s): [id number] stents, rt hand sx to repair severed lig/tendons(age 20). current dialysis catheter Past Anesthesia/Blood Transfusion Reactions: No Reported Reaction Additional Past Anesthesia/Blood Transfusion Reaction / Comment(s): clausterphobia Date of Last Stent Placement:: 2009 Past Psychological History: Depression Smoking Status: Never smoker Past Alcohol Use History: None Reported Past Drug Use History: None Reported - Past Family History Mother Family Medical History: Cancer Additional Family Medical History / Comment(s): breast cancer, heart problems was on warfarin(pt stated she bled out) Father Family Medical History: Coronary Artery Disease (CAD), Myocardial Infarction (MD) Additional Family Medical History / Comment(s): Father had his 1st MD in his 50s and then from his 2nd MD at the age of 74yrs. Medications and Allergies Home Medications Medication Instructions Recorded Confirmed Type Ranolazine [Ranexa] 1,000 mg PO BID@1000,2200 04/27/17 06/04/20 History Nitroglycerin Sl Tabs [Nitrostat] 0.4 mg SL Q5M PRN 05/07/19 06/04/20 History rOPINIRole HCL [Requip] 1 mg PO TID@0000,1000,1700 05/07/19 06/04/20 History Folic Acid 1 mg PO DAILY@1700 08/12/19 06/04/20 History Polyethylene Glycol 3350 [Miralax] 17 gm PO HS@0000 08/12/19 06/04/20 History Furosemide [Lasix] 60 mg PO TID@0000,1000,1700 09/27/19 06/04/20 History Gabapentin [Neurontin] 100 mg PO BID@1000,2200 09/27/19 06/04/20 History LORazepam [Ativan] 1 mg PO BID@1000,2200 09/27/19 06/04/20 History NIFEdipine XL [Procardia XL] 30 mg PO DAILY@1000 09/27/19 06/04/20 History Terazosin [Hytrin] 8 mg PO HS@0000 09/27/19 06/04/20 History Isosorbide Mononitrate ER [Imdur] 30 mg PO DAILY@1000 10/28/19 06/04/20 History oxyCODONE HCL [Roxicodone] 10 mg PO HS@0000 10/28/19 06/04/20 History Apixaban [Eliquis] 2.5 mg PO BID@1000,2200 01/27/20 06/04/20 History Rosuvastatin [Crestor] 5 mg PO MOWEFR@1700 01/27/20 06/04/20 History oxyCODONE HCL [Roxicodone] 5 mg PO BID@1000,1700 01/27/20 06/04/20 History Ascorbic Acid [Vitamin C] 1,000 mg PO DAILY 30 Days #30 06/03/20 06/04/20 Rx tablet Cholecalciferol [Vitamin D3 (25 100 mcg PO DAILY 30 Days #30 tablet 06/03/20 06/04/20 Rx Mcg = 1000 Iu)] Clindamycin [Cleocin] 450 mg PO Q8H 5 Days #15 cap 06/03/20 06/04/20 Rx Dexamethasone [Decadron] 6 mg PO DAILY 7 Days #7 tablet 06/03/20 06/04/20 Rx Melatonin 5 mg PO HS 30 Days #30 tablet 06/03/20 06/04/20 Rx Nystatin 100,000Unit/gm Cream 1 applic TOPICAL BID 7 Days #1 06/03/20 06/04/20 Rx [Mycostatin Cream] cream Triamcinolone 0.1% Cream [Kenalog 1 applicatio TOPICAL BID 7 Days #1 06/03/20 06/04/20 Rx 0.1% Cream] tube Zinc Sulfate [Orazinc] 220 mg PO DAILY 30 Days #30 capsule 06/03/20 06/04/20 Rx Allergies Allergy/AdvReac Type Severity Reaction Status Date / Time pravastatin Allergy Rash/Hives Verified 06/04/20 17:01 amlodipine AdvReac CONSTIPATIO Verified 06/04/20 17:01 N atenolol AdvReac MALE ED Verified 06/04/20 17:01 hydrochlorothiazide AdvReac RENAL Verified 06/04/20 17:01 IMPAIRMENT Physical Exam Vitals: Vital Signs Temp Pulse Resp BP Pulse Ox 06/04/20 16:39 76 23 90 L 06/04/20 16:33 98.1 F 79 23 121/73 86 L Intake and Output 06/04/20 06/04/20 06/04/20 06:59 14:59 22:59 Other: Weight 117.934 kg Results CBC & Chem 7: 06/04/20 16:51 06/04/20 16:51 Labs: Abnormal Lab Results - Last 24 Hours (Table) 06/04/20 06/04/20 06/04/20 Range/Units 16:51 16:51 16:51 RBC 3.29 L (4.30-5.90) m/uL Hgb 11.1 L (13.0-17.5) gm/dL Hct 31.8 L (39.0-53.0) % Neutrophils # 8.2 H (1.3-7.7) k/uL Lymphocytes # 0.2 L (1.0-4.8) k/uL PT 12.5 H (9.0-12.0) sec INR 1.2 H (<1.2) APTT 31.1 H (22.0-30.0) sec Sodium 128 L (137-145) mmol/L Chloride 90 L (98-107) mmol/L BUN 59 H (9-20) mg/dL Creatinine 3.68 H (0.66-1.25) mg/dL Glucose 175 H (74-99) mg/dL Lactate Dehydrogenase 937 H (313-618) U/L
[2020-06-04] MEDS: FUROSEMIDE 10 MG/ML 4 ML VIAL IV SCH ×2 (18:42→22:22)
[2020-06-04] MEDS ORDERED: SODIUM CHLORIDE 0.9% 1,000 ML IV SCH (18:45)
[2020-06-04] MEDS: ALBUTEROL HFA INHALER INHALATION PRN (20:23)
[2020-06-04] MEDS: NYSTATIN 100,000UNIT/GM CREAM 30 GM TUBE TOPICAL SCH ×2 (21:55→21:56)
[2020-06-04] MEDS: TRIAMCINOLONE 0.1% CREAM 80 GM TUBE TOPICAL SCH (21:56)
[2020-06-04] MEDS: LORazepam 1 MG TAB PO SCH (22:21)
[2020-06-04] MEDS: CLINDAMYCIN 150 MG CAP PO SCH (22:21)
[2020-06-04] MEDS: MELATONIN 5 MG TABLET PO SCH (22:21)
[2020-06-04] MEDS: APIXABAN 2.5 MG TABLET PO SCH (22:21)
[2020-06-04] MEDS: GABAPENTIN 100 MG CAP PO SCH (22:22)
[2020-06-04] MEDS: RANOLAZINE 500 MG TAB.ER.12H PO SCH (22:22)
[2020-06-05] MEDS ORDERED: FUROSEMIDE 20 MG TAB PO SCH
[2020-06-05] MEDS: polyethylene glycoL 3350 17 GM POWD.PACK PO SCH ×2 (00:27→23:40)
[2020-06-05] MEDS: DOXAZOSIN 2 MG TAB PO SCH (00:32)
[2020-06-05 08:15] LABS: Basophils % (A) 0 %; Eosinophils # (A) 0.1 k/uL (0-0.7); Eosinophils % (A) 1 %; HCT 28.8 % (39.0-53.0); Lymphocytes # (A) 0.4 k/uL (1.0-4.8); Lymphocytes % (A) 4 %; MCH 32.4 pg (25.0-35.0); MCHC 32.7 g/dL (31.0-37.0); MCV 99.1 fL (80.0-100.0); Macrocytosis Slight; Mean Platelet Volume 8.3; Monocytes # (A) 0.2 k/uL (0-1.0); Monocytes % (A) 3 %; Neutrophils % (A) 91 %; Platelet Count 239 k/uL (150-450); WBC 8.7 k/uL (3.8-10.6)
[2020-06-05 08:25] LABS: African American GFR (CKD) 16 (>60 ml/min/1.73 sqM); Anion Gap 16 mmol/L; Blood Urea Nitrogen 71 mg/dL (9-20); C Reactive Protein 8.8 mg/dL (<1.0); Calcium 8.3 mg/dL (8.4-10.2); Carbon Dioxide 21 mmol/L (22-30); Chloride 92 mmol/L (98-107); Glucose 177 mg/dL (74-99); Non-African American GFR(CKD) 14 (>60 ml/min/1.73 sqM); Potassium 4.8 mmol/L (3.5-5.1); Sodium 129 mmol/L (137-145)
[2020-06-05 08:32] LABS: HGB 9.4 gm/dL (13.0-17.5)
[2020-06-05 08:38] LABS: D-Dimer 0.84 mg/L FEU (<0.60)
[2020-06-05] MEDS: ALBUTEROL HFA INHALER INHALATION PRN ×2 (08:38→11:54)
[2020-06-05] MEDS: CLINDAMYCIN 150 MG CAP PO SCH (09:12)
[2020-06-05] MEDS: GABAPENTIN 100 MG CAP PO SCH ×2 (09:13→23:23)
[2020-06-05] MEDS: ZINC SULFATE 220 MG CAP PO SCH (09:13)
[2020-06-05] MEDS: RANOLAZINE 500 MG TAB.ER.12H PO SCH ×2 (09:13→23:39)
[2020-06-05] MEDS: LORazepam 1 MG TAB PO SCH ×2 (09:13→23:23)
[2020-06-05] MEDS: CHOLECALCIFEROL 25 MCG (1000 IU) TABLET PO SCH (09:14)
[2020-06-05] MEDS: APIXABAN 2.5 MG TABLET PO SCH ×2 (09:15→23:23)
[2020-06-05] MEDS: ASCORBIC ACID 500 MG TAB PO SCH (09:15)
[2020-06-05] MEDS: ISOSORBIDE MONONITRATE ER 30 MG TAB.ER.24H PO SCH (09:15)
[2020-06-05] MEDS: DEXAMETHASONE SOD PHOSPHATE 10 MG/ML 1 ML VIAL IV SCH (09:16)
[2020-06-05] MEDS: FUROSEMIDE 10 MG/ML 4 ML VIAL IV SCH ×3 (09:16→23:23)
[2020-06-05] MEDS: NIFEdipine XL 30 MG TAB.ER.24 PO SCH (09:17)
[2020-06-05] MEDS: NYSTATIN 100,000UNIT/GM CREAM 30 GM TUBE TOPICAL SCH ×2 (09:17→21:14)
[2020-06-05] MEDS: TRIAMCINOLONE 0.1% CREAM 80 GM TUBE TOPICAL SCH ×2 (09:17→21:14)
--- NOTE | 2020-06-05 10:16 | P.CNPUL ---
History of Present Illness Consult date: 06/05/20 Reason for consult: hypoxemia, pneumonia History of present illness: 85-year-old male patient with has an incisional disease, came into the emergency department with worsening shortness of breath and pulse ox was found to be in the low 70s by EMS. Upon his arrival his pulse ox was 86%. Note that the patient was recently in the hospital for lower extremity cellulitis. At that time he was COVID-19 positive. He was not offered any treatment knowing that the patient was hospitalized and he was not a candidate for monoclonal antibodies. At that time, the patient was on room air oxygen and the patient was not having any hypoxemia. Within the past few days, the patient's condition decompensated and he developed COVID-19 related pneumonia. He is currently having a shortness of breath along with cough. The patient's chest x-ray showed significant changes with development of bilateral perihilar and lower lobe pulmonary infiltrates. Currently the patient is on oxygen on a BiPAP at a pressure of 14/6 with an FiO2 of 100%. His current pulse ox is 93%. His blood work is showing a lactic acid level of 1.6, troponins were positive at 0.23 respectively, creatinine was 3.9 with a mean of 71, d-dimer is at 0.8, rest of the inflammatory markers are still pending. Note that his proBNP level is 8250. His last hemodialysis was Comorbid conditions include CAD, previous IN, diastolic heart failure with an ejection fraction of 50-55%, hypertension, end-stage renal disease on hemodialysis 3 times a week, TTS in the left treatment was on 06/03/2020. He has chronic bilateral lower extremity edema, he also has chronic back pain and history of cellulitis of lower extremities treated with clindamycin 450 mg every 8 hours. His COVID-19 diagnosis was established on 05/30/2020. He had a recent hospitalization between 05/30/2020 and 06/03/2020. Review of Systems Constitutional: Denies chills, Denies fever Eyes: denies blurred vision, denies pain Ears, nose, mouth and throat: Denies headache, Denies sore throat Cardiovascular: Denies chest pain, Denies shortness of breath Respiratory: There is worsening shortness of breath along with cough, there is increased lower extremity edema and chronic wounds and cellulitis of both lower extremities Gastrointestinal: Denies abdominal pain, Denies diarrhea, Denies nausea, Denies vomiting Musculoskeletal: Denies myalgias Integumentary: Reports wounds, Denies pruritus, Denies rash Neurological: Denies numbness, Denies weakness Psychiatric: Denies anxiety, Denies depression Endocrine: Denies fatigue, Denies weight change Past Medical History Past Medical History: Atrial Fibrillation, Coronary Artery Disease (CAD), Chest Pain / Angina, Heart Failure, Eye Disorder, Hypertension, Myocardial Infarction (IN), Osteoarthritis (OA), Renal Disease Additional Past Medical History / Comment(s): Dialysis TU, TH, SAT, Past bradycardia/hyperkalemia, UTIs, chronic lymphedema, bilateral lower leg cellulitis,RLS, chronic low back pain/bulging/herniated discs-sleeps in a recliner, past gout, indirect exposure to agent orange, cataracts, R index finger injury/surgery with limited ROM.. Last Myocardial Infarction Date:: 2009 History of Any Multi-Drug Resistant Organisms: None Reported Date of last positivie culture/infection: None MDRO Source:: None Past Surgical History: Heart Catheterization With Stent, Tonsillectomy Additional Past Surgical History / Comment(s): [id number] stents, rt hand sx to repair severed lig/tendons(age 20). current dialysis catheter Past Anesthesia/Blood Transfusion Reactions: No Reported Reaction Additional Past Anesthesia/Blood Transfusion Reaction / Comment(s): clausterphobia Date of Last Stent Placement:: 2009 Past Psychological History: Depression Smoking Status: Never smoker Past Alcohol Use History: None Reported Past Drug Use History: None Reported - Past Family History Mother Family Medical History: Cancer Additional Family Medical History / Comment(s): breast cancer, heart problems was on warfarin(pt stated she bled out) Father Family Medical History: Coronary Artery Disease (CAD), Myocardial Infarction (IN) Additional Family Medical History / Comment(s): Father had his 1st IN in his 50s and then from his 2nd IN at the age of 74yrs. Medications and Allergies Home Medications Medication Instructions Recorded Confirmed Type Ranolazine [Ranexa] 1,000 mg PO BID@1000,2200 04/27/17 06/04/20 History Nitroglycerin Sl Tabs [Nitrostat] 0.4 mg SL Q5M PRN 05/07/19 06/04/20 History rOPINIRole HCL [Requip] 1 mg PO TID@0000,1000,1700 05/07/19 06/04/20 History Folic Acid 1 mg PO DAILY@1700 08/12/19 06/04/20 History Polyethylene Glycol 3350 [Miralax] 17 gm PO HS@0000 08/12/19 06/04/20 History Furosemide [Lasix] 60 mg PO TID@0000,1000,1700 09/27/19 06/04/20 History Gabapentin [Neurontin] 100 mg PO BID@1000,2200 09/27/19 06/04/20 History LORazepam [Ativan] 1 mg PO BID@1000,2200 09/27/19 06/04/20 History NIFEdipine XL [Procardia XL] 30 mg PO DAILY@1000 09/27/19 06/04/20 History Terazosin [Hytrin] 8 mg PO HS@0000 09/27/19 06/04/20 History Isosorbide Mononitrate ER [Imdur] 30 mg PO DAILY@1000 10/28/19 06/04/20 History oxyCODONE HCL [Roxicodone] 10 mg PO HS@0000 10/28/19 06/04/20 History Apixaban [Eliquis] 2.5 mg PO BID@1000,2200 01/27/20 06/04/20 History Rosuvastatin [Crestor] 5 mg PO MOWEFR@1700 01/27/20 06/04/20 History oxyCODONE HCL [Roxicodone] 5 mg PO BID@1000,1700 01/27/20 06/04/20 History Ascorbic Acid [Vitamin C] 1,000 mg PO DAILY 30 Days #30 06/03/20 06/04/20 Rx tablet Cholecalciferol [Vitamin D3 (25 100 mcg PO DAILY 30 Days #30 tablet 06/03/20 06/04/20 Rx Mcg = 1000 Iu)] Clindamycin [Cleocin] 450 mg PO Q8H 5 Days #15 cap 06/03/20 06/04/20 Rx Dexamethasone [Decadron] 6 mg PO DAILY 7 Days #7 tablet 06/03/20 06/04/20 Rx Melatonin 5 mg PO HS 30 Days #30 tablet 06/03/20 06/04/20 Rx Nystatin 100,000Unit/gm Cream 1 applic TOPICAL BID 7 Days #1 06/03/20 06/04/20 Rx [Mycostatin Cream] cream Triamcinolone 0.1% Cream [Kenalog 1 applicatio TOPICAL BID 7 Days #1 06/03/20 06/04/20 Rx 0.1% Cream] tube Zinc Sulfate [Orazinc] 220 mg PO DAILY 30 Days #30 capsule 06/03/20 06/04/20 Rx Allergies Allergy/AdvReac Type Severity Reaction Status Date / Time pravastatin Allergy Rash/Hives Verified 06/04/20 17:01 amlodipine AdvReac CONSTIPATIO Verified 06/04/20 17:01 N atenolol AdvReac MALE ED Verified 06/04/20 17:01 hydrochlorothiazide AdvReac RENAL Verified 06/04/20 17:01 IMPAIRMENT Physical Exam Vitals: Vital Signs Temp Pulse Pulse Resp BP Pulse Ox 06/05/20 09:28 65 24 91 L 06/05/20 09:10 97.6 F 69 24 124/68 86 L 06/05/20 08:38 89 L 06/05/20 07:00 65 43 H 115/56 81 L 06/05/20 06:00 60 20 114/66 85 L 06/05/20 05:00 73 20 111/71 85 L 06/05/20 04:00 56 L 20 115/70 86 L 06/05/20 03:36 66 22 115/70 86 L 06/05/20 03:00 69 19 112/66 84 L 06/05/20 02:00 29 H 114/76 06/05/20 01:00 68 22 109/62 84 L 06/05/20 00:40 98.0 F 73 24 109/62 86 L 06/05/20 00:00 71 22 118/59 85 L 06/04/20 23:10 59 L 26 H 118/59 87 L 06/04/20 23:00 67 23 114/64 90 L 06/04/20 22:00 60 22 118/74 88 L 06/04/20 21:48 26 H 89 L 06/04/20 21:00 66 20 114/75 85 L 06/04/20 20:29 90 L 06/04/20 20:15 23 84 L 06/04/20 20:00 68 24 119/72 88 L 06/04/20 19:00 68 25 H 124/66 87 L 06/04/20 18:00 61 24 111/65 85 L 06/04/20 17:30 75 24 90 L 06/04/20 17:00 68 26 H 121/73 06/04/20 16:39 76 23 90 L 06/04/20 16:33 98.1 F 79 23 121/73 86 L 06/04/20 16:30 87 L 06/04/20 16:00 78 24 Intake and Output 06/04/20 06/05/20 06/05/20 22:59 06:59 14:59 Other: Weight 117.934 kg GENERAL EXAM: Alert, very pleasant, 75-year-old white male, on BiPAP at a pressure of 14/6 with an FiO2 of 100%, and mild degree of respiratory distress and the patient's breathing is labored even while being on a BiPAP for now. HEAD: Normocephalic/atraumatic. EYES: Normal reaction of pupils, equal size. Conjunctiva pink, sclera white. NOSE: Clear with pink turbinates. THROAT: No erythema or exudates. NECK: No masses, no JVD, no thyroid enlargement, no adenopathy. CHEST: No chest wall deformity. Symmetrical expansion. LUNGS: Equal air entry with no crackles, wheeze, rhonchi or dullness. CVS: Regular rate and rhythm, normal S1 and S2, no gallops, no murmurs, no rubs ABDOMEN: Soft, nontender. No hepatosplenomegaly, normal bowel sounds, no guarding or rigidity. EXTREMITIES: No clubbing, 2+ lower extremity edema and changes of chronic venous stasis in bilateral lower extremities, no weeping, no redness no warmth, no cyanosis, 2+ pulses and upper and lower extremities. MUSCULOSKELETAL: Muscle strength and tone normal. SPINE: No scoliosis or deformity SKIN: No rashes CENTRAL NERVOUS SYSTEM: Alert and oriented -3. No focal deficits, tone is normal in all 4 extremities. PSYCHIATRIC: Alert and oriented -3. Appropriate affect. Intact judgment and insight. Results - Laboratory Findings CBC and BMP: 06/05/20 07:43 06/05/20 07:43 PT/INR, D-dimer PT 12.5 sec (9.0-12.0) H 06/04/20 16:51 INR 1.2 (<1.2) H 06/04/20 16:51 D-Dimer 0.84 mg/L FEU (<0.60) H 06/05/20 07:43 Abnormal lab findings: Abnormal Labs 06/04/20 06/04/20 06/04/20 16:51 16:51 16:51 RBC 3.29 L Hgb 11.1 L Hct 31.8 L Neutrophils # 8.2 H Lymphocytes # 0.2 L PT 12.5 H INR 1.2 H APTT 31.1 H Fibrinogen D-Dimer Sodium 128 L Chloride 90 L Carbon Dioxide BUN 59 H Creatinine 3.68 H Glucose 175 H Plasma Lactic Acid Harman Calcium Lactate Dehydrogenase 937 H Troponin I C-Reactive Protein 6.6 H Procalcitonin 06/04/20 06/04/20 06/04/20 16:51 16:51 19:36 RBC Hgb Hct Neutrophils # Lymphocytes # PT INR APTT Fibrinogen D-Dimer Sodium Chloride Carbon Dioxide BUN Creatinine Glucose Plasma Lactic Acid Harman 2.1 H* Calcium Lactate Dehydrogenase Troponin I 0.266 H* C-Reactive Protein Procalcitonin 0.25 H 06/05/20 06/05/20 06/05/20 00:23 02:06 07:43 RBC 2.90 L Hgb 9.4 L D Hct 28.8 L Neutrophils # 8.0 H Lymphocytes # 0.4 L PT INR APTT Fibrinogen D-Dimer Sodium Chloride Carbon Dioxide BUN Creatinine Glucose Plasma Lactic Acid Harman Calcium Lactate Dehydrogenase Troponin I 0.247 H* 0.238 H* C-Reactive Protein Procalcitonin 06/05/20 06/05/20 07:43 07:43 RBC Hgb Hct Neutrophils # Lymphocytes # PT INR APTT Fibrinogen 611 H D-Dimer 0.84 H Sodium 129 L Chloride 92 L Carbon Dioxide 21 L BUN 71 H Creatinine 3.93 H Glucose 177 H Plasma Lactic Acid Harman Calcium 8.3 L Lactate Dehydrogenase Troponin I C-Reactive Protein 8.8 H Procalcitonin - Diagnostic Findings Chest x-ray: image reviewed Assessment and Plan Plan: #1. Acute COVID-19 pneumonia, with rapid progression and worsening his oxygenation with a past 1 week. The patient was originally established diagnosis of COVID-19 on 05/30/2020. At that time he has some limited crackles. Nevertheless, no significant hypoxemia and the patient was having no respiratory distress and he was hospitalized for treatment of cellulitis lower extremities. He was discharged home and following his discharge, he progressively got worse and presented with significant respiratory distress and hypoxemic respiratory failure with extensive crackling in the lung bases bilaterally and the patient is currently on a BiPAP at a pressure of 14/6 with FiO2 of 100%. Patient was taken Decadron 6 mg by mouth daily on outpatient basis. #2. Lower extremity swelling and cellulitis, lower extremity Dopplers were negative for DVT, treated with Zyvox on outpatient basis with good results #3. Chronic A. fib on Eliquis #4. CAD, with ongoing troponin leak with troponins of 0.2 3 respectively #5. ESRD on hemodialysis last dialysis was on 06/03/2020 #6. Hypertension #7. Previous history of myocardial infarction #8. Hypertension #9. Osteoporosis #10. Obesity with BMI of 37.7 kg/m Plan: Continue BiPAP for respiratory support with pressures of 14/6 with an FiO2 of 100% Titrate FiO2 to maintain saturation above 90% The patient is on Decadron and this will be started at 6 mg IV every 24 hours May be a good candidate for Tocilizumab as long as there is no signs of infection. We are going to augment his legs and look for any signs of infection or cellulitis without any wounds that can be potentially complicating his treatment. The patient remains on clindamycin for now Hemodialysis today Multivitamin supplements including vitamin C, vitamin D and zinc May not qualify for Remdesivir as the patient's oxygen requirements have been considerably high for now the patient is requiring noninvasive positive pressure ventilator. He has already received 1 dose. Continue long-term anticoagulation with Eliquis 2.5 mg by mouth twice a day Resume home medication will continue to follow. Condition is obviously critica l. He has a DO NOT RESUSCITATE, DNI status
--- NOTE | 2020-06-05 11:30 | P.PN ---
Subjective Progress Note Date: 06/05/20 (seen at 8:30 and 10:35) Principal diagnosis: shortness of breath Patient is a 75-year-old male with a history of coronary artery disease status post PCI, chronic diastolic congestive heart failure with ejection fraction 50- 55%, hypertension, dyslipidemia, and end-stage renal disease on dialysis Sunday//Sunday who presented to the hospital secondary to shortness of breath, cough, and hemoptysis. Patient had recently been hospitalized from 05/30/20 through 06/03/20 for treatment of bilateral lower extremity cellulitis failing outpatient treatment and COVID-19 infection which was asymptomatic. He had been discharged home on oral clindamycin for cellulitis, Decadron, melatonin, zinc, vitamin C, and vitamin D. At home his pulse ox is in the 70s. On arrival here he had significant hypoxemia and was requiring 8 L nasal cannula to maintain SpO2 of 90%. Chest x-ray showed pulmonary edema/ARDS. Laboratory analysis showed d-dimer 0.52, INR 1.2, LDH 937, CRP 6.6, pro calcitonin 0.25. Initial troponin was slightly elevated at 0.266 but the remainder of his troponins remained flat and this is likely consistent with his chronic renal failure. Lactic acid was mildly elevated at 2.1. He was also found to have a sodium of 128, slightly worse than his baseline of 133-135. Overnight 06/04 his oxygen requirements went up to 15L nasal canula and 15 L NRB, on the morning of 06/05 he was only sating 84-85% and required being switched to BiPap. Patient seen and examined at bedside. No chest pain, seems mildly confused, denies shortness of breath, no nausea, no vomiting, no diarrhea. General: ill appearing, mild distress, appears at stated age Derm: Dry flaking skin with purple discoloration b/; no erythema no warmth, no open wounds visible Head: atraumatic, normocephalic, symmetric Eyes: EOMI, no lid lag, anicteric sclera Mouth: no lip lesion, mucus membranes moist Cardiovascular: S1S2 reg, no murmur, positive posterior tibial pulse bilateral, Lungs: Course bs bilateral, no rhonchi, no rales , + accessory muscle use Abdominal: soft, nontender to palpation, no guarding, no appreciable organomegaly Ext: no gross muscle atrophy, 3+ edema, no contractures Neuro: CN II-XI grossly intact, no focal neuro deficits Psych: Alert, oriented, appropriate affect COVID-19 pneumonitis, acute hypoxic respiratory failure - decadron - vit C, Vit D, Zinc - Consult Pulm - Supportive care - Consider Actemra - lasix to see if diuresis will help O2 requirements improved Chronic diastolic congestive heart failure - not on ACEI and not indicated at this EF - lasix - check echo End-stage renal disease on hemodialysis Sunday//Sunday - consult nephro - HD today D/W Dr. Rios Chronic paroxysmal atrial fibrillation anticoagulated with Eliquis -Eliquis Hypertension -controlled -Continue with Procardia, Doxy Zosyn -Follow blood pressures Bilateral lower extremity cellulitis improved, -Continue clindamycin to finish course. - appears more consistent with chronic venous stasis at this point Chronic anemia secondary to end-stage renal disease -Baseline hemoglobin 11 Elevated troponin -Flat -Consistent with end-stage renal disease and not myocardial event Chronic back pain Chronic: Coronary artery disease Dyslipidemia updated on change in clinical status with increasing oxygen requirements and need for non invasive ventilation. DVT prophylaxis: Eliquis Discussed with: patient, nursing, Dr Rios, Dr Youngblood Anticipated discharge: pending course Anticipated discharge place: pending course A total of 35 minutes was spent on the care of this complex patient more than 50% of the time was spent in counseling and care coordination. Objective - Vital Signs Vital signs: Vital Signs Temp 98.0 F 06/05/20 00:40 Pulse 65 06/05/20 07:00 Resp 43 H 06/05/20 07:00 BP 115/56 06/05/20 07:00 Pulse Ox 81 L 06/05/20 07:00 Intake & Output 06/04/20 06/05/20 06/05/20 18:59 06:59 18:59 Weight 117.934 kg - Labs CBC & Chem 7: 06/05/20 07:43 06/05/20 07:43 Labs: Abnormal Lab Results - Last 24 Hours (Table) 06/04/20 06/04/20 06/04/20 Range/Units 16:51 16:51 16:51 RBC 3.29 L (4.30-5.90) m/uL Hgb 11.1 L (13.0-17.5) gm/dL Hct 31.8 L (39.0-53.0) % Neutrophils # 8.2 H (1.3-7.7) k/uL Lymphocytes # 0.2 L (1.0-4.8) k/uL PT 12.5 H (9.0-12.0) sec INR 1.2 H (<1.2) APTT 31.1 H (22.0-30.0) sec Sodium 128 L (137-145) mmol/L Chloride 90 L (98-107) mmol/L BUN 59 H (9-20) mg/dL Creatinine 3.68 H (0.66-1.25) mg/dL Glucose 175 H (74-99) mg/dL Plasma Lactic Acid Harman (0.7-2.0) mmol/L Lactate Dehydrogenase 937 H (313-618) U/L Troponin I (0.000-0.034) ng/mL C-Reactive Protein 6.6 H (<1.0) mg/dL Procalcitonin (0.02-0.09) ng/mL 06/04/20 06/04/20 06/04/20 Range/Units 16:51 16:51 19:36 RBC (4.30-5.90) m/uL Hgb (13.0-17.5) gm/dL Hct (39.0-53.0) % Neutrophils # (1.3-7.7) k/uL Lymphocytes # (1.0-4.8) k/uL PT (9.0-12.0) sec INR (<1.2) APTT (22.0-30.0) sec Sodium (137-145) mmol/L Chloride (98-107) mmol/L BUN (9-20) mg/dL Creatinine (0.66-1.25) mg/dL Glucose (74-99) mg/dL Plasma Lactic Acid Harman 2.1 H* (0.7-2.0) mmol/L Lactate Dehydrogenase (313-618) U/L Troponin I 0.266 H* (0.000-0.034) ng/mL C-Reactive Protein (<1.0) mg/dL Procalcitonin 0.25 H (0.02-0.09) ng/mL 06/05/20 06/05/20 Range/Units 00:23 02:06 RBC (4.30-5.90) m/uL Hgb (13.0-17.5) gm/dL Hct (39.0-53.0) % Neutrophils # (1.3-7.7) k/uL Lymphocytes # (1.0-4.8) k/uL PT (9.0-12.0) sec INR (<1.2) APTT (22.0-30.0) sec Sodium (137-145) mmol/L Chloride (98-107) mmol/L BUN (9-20) mg/dL Creatinine (0.66-1.25) mg/dL Glucose (74-99) mg/dL Plasma Lactic Acid Harman (0.7-2.0) mmol/L Lactate Dehydrogenase (313-618) U/L Troponin I 0.247 H* 0.238 H* (0.000-0.034) ng/mL C-Reactive Protein (<1.0) mg/dL Procalcitonin (0.02-0.09) ng/mL
[2020-06-05 12:26] LABS: Ferritin 6126.3 ng/mL (22.0-322.0)
--- NOTE | 2020-06-05 13:09 | P.CRDCN ---
History of Present Illness History of present illness: HISTORY OF PRESENTING ILLNESS This is a pleasant 75-year-old male past medical history significant for persistent atrial fibrillation on long-term anticoagulation, coronary artery disease, exact details unavailable follows at the [facility], hypertension, dyslipidemia, end-stage renal disease on hemodialysi, chronic diastolic heart failure and obesity. He follows in the office with a doctor osteopathic at the [facility]. We have been asked to see in consultation for heart failure. He was diagnosed with COVID first May 30 and had been treated in the hospital. He was discharged home 06/03. Yesterday he was having worsening shortness of breath and was found to be hypoxic with SpO2 in the 70s. He is currently on Bipap. He also was treated for lower extremity cellulitus on oral antibiotics. He is seen and examined sitting up in the ER on bipap. He appears comfortable. He is only concerned with his lower leg swelling and pain. Most recent echocardiogram obtained September 2019 revealed preserved LV systolic function with ejection fraction 50-55%. DIAGNOSTICS EKG reveals atrial fibrillation with heart rate 76. Chest xray increase pulmonary edema. Laboratory reviewed, WBC 8.7, hemoglobin 9.4, platelets 239, d-dimer 0.84, sodium 129, potassium 4.8, creatinine 3.93, lactic acid 1.6, troponin 0.266, 0.247, 0.238, NT proBNP 8250. Current cardiac medications include rosuvastatin 5 mg Ranexa 1000 mg twice a day, nifedipine 30 mg daily, Imdur 30 mg daily, Lasix 60 mg 3 times a day and Eliquis 2.5 mg twice a day. REVIEW OF SYSTEMS At the time of my exam: CONSTITUTIONAL: Denies fever or chills. CARDIOVASCULAR: Complains of shortness of breath. Denies chest pain, orthopnea, PND or palpitations. RESPIRATORY: Denies cough. GASTROINTESTINAL: Denies abdominal pain, diarrhea, constipation, nausea or vomiting. MUSCULOSKELETAL: Complains of lower extremity pain and swelling. NEUROLOGIC: Denies numbness, tingling, headacbe or weakness. ENDOCRINE: Denies fatigue, weight change, polydipsia or polyurina. GENITOURINARY: Denies burning, hematuria or urgency with micturation. HEMATOLOGIC: Denies history of anemia or bleeding. PHYSICAL EXAMINATION Blood pressure 124/68 heart rate 65 afebrile and maintaining oxygen saturation on BiPAP. CONSTITUTIONAL: No apparent distress. HEENT: Head is normocephalic. Pupils are equal, round. Sclerae anicteric. Mucous membranes of the mouth are moist. No JVD. No carotid bruit. CHEST EXAMINATION: Scattered rhonchi, expiratory wheeze, basilar rales. No chest wall tenderness is noted on palpation or with deep breathing. HEART EXAMINATION: Irregular rate and rhythm. S1, S2 heard. Systolic ejection murmur at the base, no gallops or rub. ABDOMEN: Soft, nontender. Positive bowel sounds. EXTREMITIES: 1+ peripheral pulses, 3+ bilateral lower extremity edema, erythema and no calf tenderness. NEUROLOGIC EXAMINATION: Patient is awake, alert and oriented x3. ASSESSMENT COVID 19 Fluid overload, could be related to diastolic dysfunction however cannot rely on BNP as it is always quite elevated. Likely more related to renal failure. End stage renal disease on hemodialysis Troponin elevation secondary to kidney disease and covid Hyponatremia Lactic acidosis Hypertension Dyslipidemia Coronary artrey disease, exact detail unavailable Chronic persistent atrial fibrillation PLAN Continue current medical regimen. Likely will require dialysis, await nephrology evaluation. Sunday is his typical day for HD. Thank you kindly for this consultation. Nurse Practitioner note has been reviewed, I agree with a documented findings and plan of care. Patient was seen and examined. Past Medical History Past Medical History: Atrial Fibrillation, Coronary Artery Disease (CAD), Chest Pain / Angina, Heart Failure, Eye Disorder, Hypertension, Myocardial Infarction (SD), Osteoarthritis (OA), Renal Disease Additional Past Medical History / Comment(s): Dialysis , , SAT, Past dom cardia/hyperkalemia, UTIs, chronic lymphedema, bilateral lower leg cellulitis,RLS, chronic low back pain/bulging/herniated discs-sleeps in a recliner, past gout, indirect exposure to agent orange, cataracts, R index finger injury/surgery with limited ROM.. Last Myocardial Infarction Date:: 2009 History of Any Multi-Drug Resistant Organisms: None Reported Date of last positivie culture/infection: None MDRO Source:: None Past Surgical History: Heart Catheterization With Stent, Tonsillectomy Additional Past Surgical History / Comment(s): [id number] stents, rt hand sx to repair severed lig/tendons(age 20). current dialysis catheter Past Anesthesia/Blood Transfusion Reactions: No Reported Reaction Additional Past Anesthesia/Blood Transfusion Reaction / Comment(s): clausterphobia Date of Last Stent Placement:: 2009 Past Psychological History: Depression Smoking Status: Never smoker Past Alcohol Use History: None Reported Past Drug Use History: None Reported - Past Family History Mother Family Medical History: Cancer Additional Family Medical History / Comment(s): breast cancer, heart problems was on warfarin(pt stated she bled out) Father Family Medical History: Coronary Artery Disease (CAD), Myocardial Infarction (SD) Additional Family Medical History / Comment(s): Father had his 1st SD in his 50s and then from his 2nd SD at the age of 74yrs. Medications and Allergies Home Medications Medication Instructions Recorded Confirmed Type Ranolazine [Ranexa] 1,000 mg PO BID@1000,2200 04/27/17 06/04/20 History Nitroglycerin Sl Tabs [Nitrostat] 0.4 mg SL Q5M PRN 05/07/19 06/04/20 History rOPINIRole HCL [Requip] 1 mg PO TID@0000,1000,1700 05/07/19 06/04/20 History Folic Acid 1 mg PO DAILY@1700 08/12/19 06/04/20 History Polyethylene Glycol 3350 [Miralax] 17 gm PO HS@0000 08/12/19 06/04/20 History Furosemide [Lasix] 60 mg PO TID@0000,1000,1700 09/27/19 06/04/20 History Gabapentin [Neurontin] 100 mg PO BID@1000,2200 09/27/19 06/04/20 History LORazepam [Ativan] 1 mg PO BID@1000,2200 09/27/19 06/04/20 History NIFEdipine XL [Procardia XL] 30 mg PO DAILY@1000 09/27/19 06/04/20 History Terazosin [Hytrin] 8 mg PO HS@0000 09/27/19 06/04/20 History Isosorbide Mononitrate ER [Imdur] 30 mg PO DAILY@1000 10/28/19 06/04/20 History oxyCODONE HCL [Roxicodone] 10 mg PO HS@0000 10/28/19 06/04/20 History Apixaban [Eliquis] 2.5 mg PO BID@1000,2200 01/27/20 06/04/20 History Rosuvastatin [Crestor] 5 mg PO MOWEFR@1700 01/27/20 06/04/20 History oxyCODONE HCL [Roxicodone] 5 mg PO BID@1000,1700 01/27/20 06/04/20 History Ascorbic Acid [Vitamin C] 1,000 mg PO DAILY 30 Days #30 06/03/20 06/04/20 Rx tablet Cholecalciferol [Vitamin D3 (25 100 mcg PO DAILY 30 Days #30 tablet 06/03/20 06/04/20 Rx Mcg = 1000 Iu)] Clindamycin [Cleocin] 450 mg PO Q8H 5 Days #15 cap 06/03/20 06/04/20 Rx Dexamethasone [Decadron] 6 mg PO DAILY 7 Days #7 tablet 06/03/20 06/04/20 Rx Melatonin 5 mg PO HS 30 Days #30 tablet 06/03/20 06/04/20 Rx Nystatin 100,000Unit/gm Cream 1 applic TOPICAL BID 7 Days #1 06/03/20 06/04/20 Rx [Mycostatin Cream] cream Triamcinolone 0.1% Cream [Kenalog 1 applicatio TOPICAL BID 7 Days #1 06/03/20 06/04/20 Rx 0.1% Cream] tube Zinc Sulfate [Orazinc] 220 mg PO DAILY 30 Days #30 capsule 06/03/20 06/04/20 Rx Allergies Allergy/AdvReac Type Severity Reaction Status Date / Time pravastatin Allergy Rash/Hives Verified 06/04/20 17:01 amlodipine AdvReac CONSTIPATIO Verified 06/04/20 17:01 N atenolol AdvReac MALE ED Verified 06/04/20 17:01 hydrochlorothiazide AdvReac RENAL Verified 06/04/20 17:01 IMPAIRMENT Physical Exam Vitals: Vital Signs Temp Pulse Pulse Resp BP Pulse Ox 06/05/20 09:28 65 24 91 L 06/05/20 09:10 97.6 F 69 24 124/68 86 L 06/05/20 08:38 89 L 06/05/20 07:00 65 43 H 115/56 81 L 06/05/20 06:00 60 20 114/66 85 L 06/05/20 05:00 73 20 111/71 85 L 06/05/20 04:00 56 L 20 115/70 86 L 06/05/20 03:36 66 22 115/70 86 L 06/05/20 03:00 69 19 112/66 84 L 06/05/20 02:00 29 H 114/76 06/05/20 01:00 68 22 109/62 84 L 06/05/20 00:40 98.0 F 73 24 109/62 86 L 06/05/20 00:00 71 22 118/59 85 L 06/04/20 23:10 59 L 26 H 118/59 87 L 06/04/20 23:00 67 23 114/64 90 L 06/04/20 22:00 60 22 118/74 88 L 06/04/20 21:48 26 H 89 L 06/04/20 21:00 66 20 114/75 85 L 06/04/20 20:29 90 L 06/04/20 20:15 23 84 L 06/04/20 20:00 68 24 119/72 88 L 06/04/20 19:00 68 25 H 124/66 87 L 06/04/20 18:00 61 24 111/65 85 L 06/04/20 17:30 75 24 90 L 06/04/20 17:00 68 26 H 121/73 06/04/20 16:39 76 23 90 L 06/04/20 16:33 98.1 F 79 23 121/73 86 L 06/04/20 16:30 87 L 06/04/20 16:00 78 24 Intake and Output 06/04/20 06/05/20 06/05/20 22:59 06:59 14:59 Other: Weight 117.934 kg Results 06/05/20 07:43 06/05/20 07:43 Cardiac Enzymes 06/04/20 06/04/20 06/05/20 Range/Units 16:51 19:36 00:23 AST 36 (17-59) U/L Lactate Dehydrogenase 937 H (313-618) U/L Troponin I 0.266 H* 0.247 H* (0.000-0.034) ng/mL 06/05/20 Range/Units 02:06 AST (17-59) U/L Lactate Dehydrogenase (313-618) U/L Troponin I 0.238 H* (0.000-0.034) ng/mL Coagulation 06/04/20 Range/Units 16:51 PT 12.5 H (9.0-12.0) sec APTT 31.1 H (22.0-30.0) sec CBC 06/04/20 06/05/20 Range/Units 16:51 07:43 WBC 8.8 8.7 (3.8-10.6) k/uL RBC 3.29 L 2.90 L (4.30-5.90) m/uL Hgb 11.1 L 9.4 L D (13.0-17.5) gm/dL Hct 31.8 L 28.8 L (39.0-53.0) % Plt Count 219 239 (150-450) k/uL Comprehensive Metabolic Panel 06/04/20 06/05/20 Range/Units 16:51 07:43 Sodium 128 L 129 L (137-145) mmol/L Potassium 4.9 4.8 (3.5-5.1) mmol/L Chloride 90 L 92 L (98-107) mmol/L Carbon Dioxide 25 21 L (22-30) mmol/L BUN 59 H 71 H (9-20) mg/dL Creatinine 3.68 H 3.93 H (0.66-1.25) mg/dL Glucose 175 H 177 H (74-99) mg/dL Calcium 8.4 8.3 L (8.4-10.2) mg/dL AST 36 (17-59) U/L ALT 15 (4-49) U/L Alkaline Phosphatase 75 (38-126) U/L Total Protein 7.9 (6.3-8.2) g/dL Albumin 3.9 (3.5-5.0) g/dL Current Medications Generic Name Dose Route Start Last Admin Trade Name Freq PRN Reason Stop Dose Admin Acetaminophen 650 mg 06/04/20 17:13 Acetaminophen Tab 325 Mg Tab PO Q6HR PRN Mild Pain or Fever > 100.5 Albuterol Sulfate 2 puff 06/04/20 17:17 06/05/20 08:38 Albuterol Hfa Inhaler INHALATION 2 puff RT-QID PRN Administration Shortness Of Breath Or Wheezing Alprazolam 0.5 mg 06/04/20 17:24 06/04/20 17:50 Alprazolam 0.25 Mg Tab PO 0.5 mg Q6HR PRN Administration Anxiety Apixaban 2.5 mg 06/04/20 22:00 04/17/21 09:15 Apixaban 2.5 Mg Tablet PO 2.5 mg BID@1000,2200 [facility] Administration Ascorbic Acid 1,000 mg 06/05/20 09:00 06/05/20 09:15 Ascorbic Acid 500 Mg Tab PO 1,000 mg DAILY [facility] Administration Atorvastatin Calcium 10 mg 06/07/20 17:00 Atorvastatin 10 Mg Tab PO MOWEFR@1700 [facility] Cholecalciferol 100 mcg 06/05/20 09:00 06/05/20 09:14 Cholecalciferol 25 Mcg (1000 Iu) Tablet PO 100 mcg DAILY [facility] Administration Clindamycin HCl 450 mg 06/04/20 22:00 06/05/20 09:12 Clindamycin 150 Mg Cap PO 450 mg TID [facility] Administration Dexamethasone Sodium Phosphate 6 mg 06/05/20 09:00 06/05/20 09:16 Dexamethasone Sod Phosphate 10 Mg/Ml 1 Ml Vial IV 6 mg DAILY [facility] Administration Doxazosin Mesylate 6 mg 06/05/20 00:00 06/05/20 00:32 Doxazosin 2 Mg Tab PO 6 mg HS@0000 [facility] Administration Folic Acid 1 mg 06/05/20 17:00 Folic Acid 1 Mg Tab PO DAILY@1700 [facility] Furosemide 40 mg 06/04/20 17:45 06/05/20 09:16 Furosemide 10 Mg/Ml 4 Ml Vial IV 40 mg TID [facility] Administration Gabapentin 100 mg 06/04/20 22:00 06/05/20 09:13 Gabapentin 100 Mg Cap PO 100 mg BID@1000,2200 [facility] Administration Isosorbide Mononitrate 30 mg 06/05/20 10:00 06/05/20 09:15 Isosorbide Mononitrate Er 30 Mg Tab.Er.24h PO 30 mg DAILY@1000 [facility] Administration Lorazepam 1 mg 06/04/20 22:00 06/05/20 09:13 Lorazepam 1 Mg Tab PO 1 mg BID@1000,2200 [facility] Administration Melatonin 5 mg 06/04/20 21:00 06/04/20 22:21 Melatonin 5 Mg Tablet PO 5 mg HS [facility] Administration Naloxone HCl 0.2 mg 06/04/20 17:24 Naloxone 0.4 Mg/Ml 1 Ml Vial IV Q2M PRN Opioid Reversal Nifedipine 30 mg 06/05/20 10:00 06/05/20 09:17 Nifedipine Xl 30 Mg Tab.Er.24 PO 30 mg DAILY@1000 [facility] Administration Nystatin 1 applic 06/04/20 21:00 06/05/20 09:17 Nystatin 100,000unit/Gm Cream 30 Gm Tube TOPICAL 1 applic BID [facility] Administration Oxycodone HCl 5 mg 06/05/20 10:00 06/05/20 09:15 Oxycodone Hcl 5 Mg Tab PO 5 mg BID@1000,1700 [facility] Administration Oxycodone HCl 10 mg 06/05/20 00:00 06/05/20 00:33 Oxycodone Hcl 5 Mg Tab PO 10 mg HS@0000 [facility] Administration Oxycodone/Acetaminophen 1 each 06/04/20 17:24 06/04/20 17:50 Oxycodone-Apap 5-325mg 1 Each Tab PO 1 each Q4HR PRN Administration Moderate to Severe Pain Polyethylene Glycol 17 gm 06/05/20 00:00 06/05/20 00:27 Polyethylene Glycol 3350 17 Gm Powd.Pack PO Not Given HS@0000 [facility] Ranolazine 1,000 mg 06/04/20 22:00 06/05/20 09:13 Ranolazine 500 Mg Tab.Er.12h PO 1,000 mg BID@1000,2200 [facility] Administration Ropinirole HCl 1 mg 06/05/20 00:00 06/05/20 09:14 Ropinirole Hcl 1 Mg Tab PO 1 mg TID@0000,1000,1700 [facility] Administration Triamcinolone Acetonide 1 applic 06/04/20 21:00 06/05/20 09:17 Triamcinolone 0.1% Cream 80 Gm Tube TOPICAL 1 applic BID [facility] Administration Zinc Sulfate 220 mg 06/04/20 17:30 06/05/20 09:13 Zinc Sulfate 220 Mg Cap PO 220 mg DAILY [facility] Administration Intake and Output 06/04/20 06/05/20 06/05/20 22:59 06:59 14:59 Other: Weight 117.934 kg 06/05/20 07:43 06/05/20 07:43
[2020-06-05] MEDS ORDERED: TOCILIZUMAB 800 MG in SODIUM CHLORIDE 0.9% 60 ML IV ONE (14:00)
--- NOTE | 2020-06-05 14:16 | ECHOF ---
Referral Reason:Hypoxia, CHF exacerbation MEASUREMENTS -------- HEIGHT: 182.9 cm WEIGHT: 108.9 kg BP: RVIDd: 3.3 cm (< 3.3) IVSd: 1.4 cm (0.6 - 1.1) LVIDd: 5.3 cm (3.9 - 5.3) LVPWd: 1.6 cm (0.6 - 1.1) IVSs: 1.6 cm LVIDs: 3.5 cm LVPWs: 1.9 cm LA Diam: 5.3 cm (2.7 - 3.8) Ao Diam: 3.2 cm (2.0 - 3.7) MV EXCURSION: 14.022 mm (> 18.000) MV EF SLOPE: 70 mm/s (70 - 150) EPSS: 1.4 cm MV E Renny: 1.03 m/s MV DecT: 170 ms MV A Renny: 0.58 m/s MV E/A Ratio: 1.76 RAP: 5.00 mmHg RVSP: 20.59 mmHg FINDINGS -------- Sinus rhythm. TDS Study Lumason used: Pt is Covid positive. The left ventricular size is normal. Left ventricular wall thickness is normal. Overall left vent ricular systolic function is mild-moderately impaired with, an EF between 40 - 45 %. The right ventricle is normal in size. The left atrium is markedly dilated. The right atrial size is normal. There is mild aortic valve sclerosis. Mild mitral annular calcification present. Mild mitral regurgitation is present. Mild tricuspid regurgitation present. Right ventricular systolic pressure is normal at < 35 mmHg. The pulmonic valve was not well visualized. The aortic root size is normal. There is no pericardial effusion. CONCLUSIONS -------- 1. TDS Study Lumason used: Pt is Covid positive. 2. Left ventricular wall thickness is normal. 3. Overall left ventricular systolic function is mild-moderately impaired with, an EF between 40 - 45 %. 4. The left atrium is markedly dilated. 5. There is mild aortic valve sclerosis. 6. Mild mitral regurgitation is present. 7. Mild tricuspid regurgitation present. COOLER CONVEYOR LOADER: Kristen Andrews RDCS
[2020-06-05] MEDS: ALPRAZolam 0.25 MG TAB PO PRN (16:40)
--- NOTE | 2020-06-05 17:57 | CONS ---
CONSULTATION REASON FOR CONSULT: Renal failure, end-stage renal disease. HISTORY OF PRESENT ILLNESS: Patient is a 75-year-old male with end-stage renal disease on hemodialysis on a Sunday, , Sunday schedule. The patient has underlying COVID pneumonia. He was just discharged two days ago and readmitted yesterday with worsening hypoxia and shortness of breath. We had about 3.5 L of fluid removed on 06/03/2020 prior to discharge. This morning patient denies any new symptoms of nausea, vomiting, abdominal pain or diarrhea. His overall volume status has improved from about a week ago. The patient will be dialyzed again today with goal UF of about 2-3 L. PAST MEDICAL HISTORY: End-stage renal disease, anemia of chronic disease, CKD mineral bone disorder, chronic atrial fibrillation, coronary artery disease, chronic diastolic CHF, bilateral chronic lower extremity cellulitis, cataracts, osteoarthritis. PAST SURGICAL HISTORY: Cardiac catheterization, coronary stent placement, tonsillectomy, PermCath placement. SOCIAL HISTORY: Negative for smoking, drug abuse or alcohol abuse. MEDICATIONS: Medications prior to admission included Ranexa, Nitrostat, Requip, folic acid, MiraLAX, Lasix, Neurontin, Ativan, Procardia, Hytrin, Eliquis, Crestor, oxycodone, Cleocin, Decadron, melatonin, zinc. ALLERGIES: Include AMLODIPINE causes constipation, PRAVASTATIN causes rash and hives, ATENOLOL causes erectile dysfunction, HYDROCHLOROTHIAZIDE for worsening renal function. REVIEW OF SYSTEMS: As per HPI. Other systems negative. EXAMINATION: Patient is awake, comfortable. He is maintained on BiPAP. He is short of breath. Blood pressure this morning was 112/62, heart rate 64 per minute, he is afebrile. Examination shows chronic lower extremity edema, chronic skin changes. Abdomen is morbidly obese. ELECTROENCEPHALOGRAM TECHNOLOGIST exam grossly intact. The patient is awake, alert, and oriented x3. LAB: Show sodium 129, potassium 4.8, BUN 71, creatinine 3.93. ProBNP 8250. Chest x-ray shows increased pulmonary vasculature. An echocardiogram done today shows ejection fraction 40-45%. ASSESSMENT: 1. End-stage renal disease, on hemodialysis on a Sunday, , Sunday schedule. 2. COVID pneumonia. 3. Volume overload. 4. Anemia of chronic disease. 5. Acute hypoxic respiratory failure, multifactorial including underlying congestive heart failure, fluid overload, as well as COVID-19 pneumonia. 6. Cardiomyopathy, ejection fraction 40-45%. 7. Congestive heart failure, acute on top of chronic, currently systolic. PLAN: Hemodialysis today with UF 2-3 L as tolerated. Continue oxygen support and treatment with steroids. Continue current antihypertensive regimen and will assess on a daily basis for need for renal replacement therapy. MMODL / IJN: [id number] /
[2020-06-05] MEDS ORDERED: LORazepam 2 MG/ML INJ IV STA (19:36)
[2020-06-05] MEDS: MELATONIN 5 MG TABLET PO SCH (21:09)
[2020-06-05] MEDS: FOLIC ACID 1 MG TAB PO SCH (21:10)
[2020-06-06] MEDS: DOXAZOSIN 2 MG TAB PO SCH (01:03)
[2020-06-06] MEDS: ZINC SULFATE 220 MG CAP PO SCH (07:43)
[2020-06-06] MEDS: APIXABAN 2.5 MG TABLET PO SCH ×2 (07:43→22:31)
[2020-06-06] MEDS: LORazepam 1 MG TAB PO SCH (07:43)
[2020-06-06] MEDS: ASCORBIC ACID 500 MG TAB PO SCH (07:43)
[2020-06-06] MEDS: GABAPENTIN 100 MG CAP PO SCH ×2 (07:43→22:31)
[2020-06-06] MEDS: FUROSEMIDE 10 MG/ML 4 ML VIAL IV SCH ×3 (07:44→22:30)
[2020-06-06] MEDS: CHOLECALCIFEROL 25 MCG (1000 IU) TABLET PO SCH (07:44)
[2020-06-06] MEDS: DEXAMETHASONE SOD PHOSPHATE 10 MG/ML 1 ML VIAL IV SCH (07:44)
[2020-06-06] MEDS: ISOSORBIDE MONONITRATE ER 30 MG TAB.ER.24H PO SCH (07:46)
[2020-06-06] MEDS: RANOLAZINE 500 MG TAB.ER.12H PO SCH ×2 (08:18→22:31)
[2020-06-06 08:19] LABS: D-Dimer 1.29 mg/L FEU (<0.60)
[2020-06-06] MEDS: NYSTATIN 100,000UNIT/GM CREAM 30 GM TUBE TOPICAL SCH ×2 (08:19→22:31)
[2020-06-06] MEDS: NIFEdipine XL 30 MG TAB.ER.24 PO SCH (08:19)
[2020-06-06] MEDS: TRIAMCINOLONE 0.1% CREAM 80 GM TUBE TOPICAL SCH ×2 (08:19→22:31)
[2020-06-06 08:52] LABS: HCT 31.6 % (39.6-50.0); HGB 10.5 g/dL (13.0-17.0); MCH 32.4 pg (27.0-32.0); MCHC 33.2 g/dL (32.0-37.0); MCV 97.5 fL (80.0-97.0); Platelet Count 213 X 10*3/uL (140-440); RBC 3.24 X 10*6/uL (4.40-5.60); RDW 14.4 % (11.5-14.5); WBC 7.39 X 10*3/uL (4.50-10.00)
[2020-06-06] MEDS: ALBUTEROL HFA INHALER INHALATION PRN ×4 (09:05→16:32)
[2020-06-06 09:36] LABS: African American GFR (CKD) 19 (>60 ml/min/1.73 sqM); Anion Gap 12 mmol/L; Blood Urea Nitrogen 60 mg/dL (9-20); Calcium 8.4 mg/dL (8.4-10.2); Carbon Dioxide 28 mmol/L (22-30); Chloride 93 mmol/L (98-107); Glucose 182 mg/dL (74-99); Non-African American GFR(CKD) 16 (>60 ml/min/1.73 sqM); Potassium 4.4 mmol/L (3.5-5.1); Sodium 133 mmol/L (137-145)
[2020-06-06 10:06] LABS: C Reactive Protein 15.5 mg/dL (0.0-0.8); Ferritin 7635.5 ng/mL (22.0-322.0)
--- NOTE | 2020-06-06 11:10 | P.PN ---
Subjective Progress Note Date: 06/06/20 Principal diagnosis: shortness of breath Patient is a 75-year-old male with a history of coronary artery disease status post PCI, chronic diastolic congestive heart failure with ejection fraction 50- 55%, hypertension, dyslipidemia, and end-stage renal disease on dialysis Sunday//Sunday who presented to the hospital secondary to shortness of breath, cough, and hemoptysis. Patient had recently been hospitalized from 05/30/20 through 06/03/20 for treatment of bilateral lower extremity cellulitis failing outpatient treatment and COVID-19 infection which was asymptomatic. He had been discharged home on oral clindamycin for cellulitis which appears resolved, Decadron, melatonin, zinc, vitamin C, and vitamin D. At home his pulse ox is in the 70s. On arrival here he had significant hypoxemia and was requiring 8 L nasal cannula to maintain SpO2 of 90%. Chest x-ray showed pulmonary edema/ARDS. Laboratory analysis showed d-dimer 0.52, INR 1.2, LDH 937, CRP 6.6, pro calcitonin 0.25. Initial troponin was slightly elevated at 0.266 but the remainder of his troponins remained flat and this is likely consistent with his chronic renal failure. Lactic acid was mildly elevated at 2.1. He was also found to have a sodium of 128, slightly worse than his baseline of 133-135. Overnight 06/04 his oxygen requirements went up to 15L nasal canula and 15 L NRB, on the morning of 06/05 he was only sating 84-85% and required being switched to BiPap. he received a dose of actemra. Patient seen and examined at bedside. Confused and lethargic this morning, He had NRB off to eat breakfast and pulse ox now 88 and went to 85 with deep breathing, bipap replaced and O2 to 59% General: ill appearing, mild distress, appears at stated age Derm: Dry flaking skin with purple discoloration b/; no erythema no warmth, no open wounds visible Head: atraumatic, normocephalic, symmetric Eyes: EOMI, no lid lag, anicteric sclera Mouth: no lip lesion, mucus membranes moist Cardiovascular: S1S2 reg, no murmur, positive posterior tibial pulse bilateral, Lungs: Course bs bilateral, no rhonchi, no rales , + accessory muscle use Abdominal: soft, nontender to palpation, no guarding, no appreciable organomegaly Ext: no gross muscle atrophy, 3+ edema, no contractures Neuro: CN II-XI grossly intact, no focal neuro deficits Psych: Alert, oriented, appropriate affect COVID-19 pneumonitis, acute hypoxic respiratory failure - decadron - vit C, Vit D, Zinc - Pulm recs appreciated - Supportive care - Actemra given 06/05 - follow inflammatory markers, currently trending up. Toxic metabolic encephalopathy - likely multifactoial - supportive care - stop scheduled ativan, decrease scheduled oxy, stop prn percocet Chronic diastolic congestive heart failure, EF 40-45% - not on ACEI and not indicated at this EF - lasix - check echo End-stage renal disease on hemodialysis Sunday//Sunday - Nephro recs - had HD on 05/20 Chronic paroxysmal atrial fibrillation anticoagulated with Eliquis -Eliquis Hypertension -controlled -Continue with Procardia, Doxy Zosyn -Follow blood pressures Bilateral lower extremity cellulitis improved, - appears more consistent with chronic venous stasis at this point, no need for abx, continue daily PIOTR wraps. Chronic anemia secondary to end-stage renal disease -Baseline hemoglobin 11 - follow CBC Elevated troponin -Flat -Consistent with end-stage renal disease and not myocardial event Chronic back pain - oxyir Chronic: Coronary artery disease Dyslipidemia updated on change in clinical status with increasing oxygen requirements and need for non invasive ventilation. DVT prophylaxis: Eliquis Discussed with: patient, nursing, updated on condition and confirms no resuscitation Anticipated discharge: pending course Anticipated discharge place: pending course A total of 35 minutes was spent on the care of this complex patient more than 50% of the time was spent in counseling and care coordination. Objective - Vital Signs Vital signs: Vital Signs Temp 97.3 F L 06/06/20 10:22 Pulse 86 06/06/20 10:22 Resp 22 06/06/20 10:22 BP 108/63 06/06/20 10:22 Pulse Ox 93 L 06/06/20 10:22 Intake & Output 06/05/20 06/06/20 06/06/20 18:59 06:59 18:59 Output Total 3200 Balance -3200 Output: Hemodialysis 3200 Other: # Voids 0 - Labs CBC & Chem 7: 06/06/20 05:36 06/06/20 07:51 Labs: Abnormal Lab Results - Last 24 Hours (Table) 06/05/20 06/06/20 06/06/20 Range/Units 07:43 05:36 05:36 RBC (4.40-5.60) X 10*6/uL Hgb (13.0-17.0) g/dL Hct (39.6-50.0) % MCV (80.0-97.0) fL MCH (27.0-32.0) pg Fibrinogen 543 H (200-500) mg/dL D-Dimer 1.29 H (<0.60) mg/L FEU Sodium (137-145) mmol/L Chloride (98-107) mmol/L BUN (9-20) mg/dL Creatinine (0.66-1.25) mg/dL Glucose (74-99) mg/dL Ferritin 6126.3 H 7635.5 H (22.0-322.0) ng/mL Lactate Dehydrogenase 608 H (120-246) U/L C-Reactive Protein 15.5 H (0.0-0.8) mg/dL 06/06/20 06/06/20 Range/Units 05:36 07:51 RBC 3.24 L (4.40-5.60) X 10*6/uL Hgb 10.5 L (13.0-17.0) g/dL Hct 31.6 L (39.6-50.0) % MCV 97.5 H (80.0-97.0) fL MCH 32.4 H (27.0-32.0) pg Fibrinogen (200-500) mg/dL D-Dimer (<0.60) mg/L FEU Sodium 133 L (137-145) mmol/L Chloride 93 L (98-107) mmol/L BUN 60 H (9-20) mg/dL Creatinine 3.53 H (0.66-1.25) mg/dL Glucose 182 H (74-99) mg/dL Ferritin (22.0-322.0) ng/mL Lactate Dehydrogenase (120-246) U/L C-Reactive Protein (0.0-0.8) mg/dL
--- NOTE | 2020-06-06 12:07 | P.PN ---
Subjective HISTORY OF PRESENTING ILLNESS This is a pleasant 75-year-old male past medical history significant for persistent atrial fibrillation on long-term anticoagulation, coronary artery disease, exact details unavailable follows at the [place], hypertension, dyslipidemia, end-stage renal disease on hemodialysi, chronic diastolic heart failure and obesity. He follows in the office with a bolt man at the [place]. We have been asked to see in consultation for heart failure. He was diagnosed with COVID first May 30 and had been treated in the hospital. He was discharged home 06/03. Yesterday he was having worsening shortness of breath and was found to be hypoxic with SpO2 in the 70s. He is currently on Bipap. He also was treated for lower extremity cellulitus on oral antibiotics. He is seen and examined sitting up in the ER on bipap. He appears comfortable. He is only concerned with his lower leg swelling and pain. Most recent echocardiogram obtained September 2019 revealed preserved LV systolic function with ejection fraction 50-55%. 06/06/2020 He is seen sitting up in the chair on a non-rebreather, apparently he had taken off his bipap to eat breakfast and is awaiting RT to come reapply it. He underwent dialysis yesterday. Repeat echocardiogram obtained reveals impaired LV systolic function with ejection fraction 40-45%. Blood pressure 1/63 heart rate 86 afebrile maintaining oxygen saturation. Laboratory data reviewed, sodium 133, potassium 4.4 and creatinine 3.53. 24-hr urine output 3200ml. PHYSICAL EXAMINATION CONSTITUTIONAL: No apparent distress. HEENT: Head is normocephalic. Pupils are equal, round. Sclerae anicteric. Mucous membranes of the mouth are moist. No JVD. No carotid bruit. CHEST EXAMINATION: Scattered rhonchi, expiratory wheeze, basilar rales. No chest wall tenderness is noted on palpation or with deep breathing. HEART EXAMINATION: Irregular rate and rhythm. S1, S2 heard. Systolic ejection murmur at the base, no gallops or rub. EXTREMITIES: 1+ peripheral pulses, 3+ bilateral lower extremity edema, erythema and no calf tenderness. ASSESSMENT COVID 19 Fluid overload Chronic diastolic and systolic heart failure, normal EF in the past. Currently 40-45%. End stage renal disease on hemodialysis Troponin elevation secondary to kidney disease and covid Hyponatremia Lactic acidosis Hypertension Dyslipidemia Coronary artrey disease, exact detail unavailable Chronic persistent atrial fibrillation PLAN Continue current medical regimen. No PIOTR/ARB due to renal failure. Initiate lopressor 25 mg BID. Further recommendations to follow based on clinical course. Nurse Practitioner note has been reviewed, I agree with a documented findings and plan of care. Patient was seen and examined. Objective - Vital Signs Vital signs: Vital Signs Temp 97.4 F L 06/06/20 05:03 Pulse 59 L 06/06/20 05:03 Resp 16 06/06/20 05:03 BP 119/69 06/06/20 05:03 Pulse Ox 89 L 06/06/20 05:03 Intake & Output 06/05/20 06/06/20 06/06/20 18:59 06:59 18:59 Output Total 3200 Balance -3200 Output: Hemodialysis 3200 Other: # Voids 0 - Labs CBC & Chem 7: 06/06/20 05:36 06/06/20 07:51 Labs: Abnormal Lab Results - Last 24 Hours (Table) 06/05/20 06/06/20 06/06/20 Range/Units 07:43 05:36 05:36 RBC 3.24 L (4.40-5.60) X 10*6/uL Hgb 10.5 L (13.0-17.0) g/dL Hct 31.6 L (39.6-50.0) % MCV 97.5 H (80.0-97.0) fL MCH 32.4 H (27.0-32.0) pg Fibrinogen 543 H (200-500) mg/dL D-Dimer 1.29 H (<0.60) mg/L FEU Ferritin 6126.3 H (22.0-322.0) ng/mL
--- NOTE | 2020-06-06 12:31 | P.PN ---
Subjective Progress Note Date: 06/06/20 85-year-old male patient with has an incisional disease, came into the emergency department with worsening shortness of breath and pulse ox was found to be in the low 70s by EMS. Upon his arrival his pulse ox was 86%. Note that the patient was recently in the hospital for lower extremity cellulitis. At that time he was COVID-19 positive. He was not offered any treatment knowing that the patient was hospitalized and he was not a candidate for monoclonal antibodies. At that time, the patient was on room air oxygen and the patient was not having any hypoxemia. Within the past few days, the patient's condition decompensated and he developed COVID-19 related pneumonia. He is currently having a shortness of breath along with cough. The patient's chest x-ray showed significant changes with development of bilateral perihilar and lower lobe pulmonary infiltrates. Currently the patient is on oxygen on a BiPAP at a pressure of 14/6 with an FiO2 of 100%. His current pulse ox is 93%. His blood work is showing a lactic acid level of 1.6, troponins were positive at 0.23 respectively, creatinine was 3.9 with a mean of 71, d-dimer is at 0.8, rest of the inflammatory markers are still pending. Note that his proBNP level is 8250. His last hemodialysis was Comorbid conditions include CAD, previous UT, diastolic heart failure with an ejection fraction of 50-55%, hypertension, end-stage renal disease on hemodialysis 3 times a week, TTS in the left treatment was on 06/03/2020. He has chronic bilateral lower extremity edema, he also has chronic back pain and history of cellulitis of lower extremities treated with clindamycin 450 mg every 8 hours. His COVID-19 diagnosis was established on 05/30/2020. He had a recent hospitalization between 05/30/2020 and 06/03/2020. On 06/06/2020, the patient looks short of breath and quite miserable. Earlier this morning, he took his mask off which is on the percent on a beta facemask and he was trying to eat and he became hypoxic. At that point he was immediately placed on a BiPAP to recover his oxygenation at the pressure of 14/6. Currently is back to 100% on a beta facemask along with 15 L nasal cannula. His current pulse ox is around 98%. His LDH from today was so 8 with a CRP of 15.5. He underwent hemodialysis yesterday with ultrafiltration. Creatinine is down to 3.5 with a BUN of 60. Sodium is 133. Potassium level is at 4.4. He is currently sitting up on a recliner. He has limited reserve and he gets short of breath with limited amount of activity and talking and coughing. He does have a dry cough. Terms of treatment, we offer this patient Decadron 6 mg IV and he also received Tocilizumab 800 Iv x1 , the patient is also on Eliquis., Objective - Vital Signs Vital signs: Vital Signs Temp 97.3 F L 06/06/20 10:22 Pulse 86 06/06/20 10:22 Resp 22 06/06/20 10:22 BP 108/63 06/06/20 10:22 Pulse Ox 93 L 06/06/20 10:22 Intake & Output 06/05/20 06/06/20 06/06/20 18:59 06:59 18:59 Output Total 3200 Balance -3200 Output: Hemodialysis 3200 Other: # Voids 0 - Exam GENERAL EXAM: Alert, very pleasant, 75-year-old white male, on BiPAP at a pressure of 14/6 with an FiO2 of 100%, and mild degree of respiratory distress and the patient's breathing is labored even while being on a BiPAP for now. HEAD: Normocephalic/atraumatic. EYES: Normal reaction of pupils, equal size. Conjunctiva pink, sclera white. NOSE: Clear with pink turbinates. THROAT: No erythema or exudates. NECK: No masses, no JVD, no thyroid enlargement, no adenopathy. CHEST: No chest wall deformity. Symmetrical expansion. LUNGS: Equal air entry with no crackles, wheeze, rhonchi or dullness. CVS: Regular rate and rhythm, normal S1 and S2, no gallops, no murmurs, no rubs ABDOMEN: Soft, nontender. No hepatosplenomegaly, normal bowel sounds, no guarding or rigidity. EXTREMITIES: No clubbing, 2+ lower extremity edema and changes of chronic venous stasis in bilateral lower extremities, no weeping, no redness no warmth, no cyanosis, 2+ pulses and upper and lower extremities. MUSCULOSKELETAL: Muscle strength and tone normal. SPINE: No scoliosis or deformity SKIN: No rashes CENTRAL NERVOUS SYSTEM: Alert and oriented -3. No focal deficits, tone is normal in all 4 extremities. PSYCHIATRIC: Alert and oriented -3. Appropriate affect. Intact judgment and insight. - Labs CBC & Chem 7: 06/06/20 05:36 06/06/20 07:51 Labs: Abnormal Lab Results - Last 24 Hours (Table) 06/05/20 06/06/20 06/06/20 Range/Units 07:43 05:36 05:36 RBC (4.40-5.60) X 10*6/uL Hgb (13.0-17.0) g/dL Hct (39.6-50.0) % MCV (80.0-97.0) fL MCH (27.0-32.0) pg Fibrinogen 543 H (200-500) mg/dL D-Dimer 1.29 H (<0.60) mg/L FEU Sodium (137-145) mmol/L Chloride (98-107) mmol/L BUN (9-20) mg/dL Creatinine (0.66-1.25) mg/dL Glucose (74-99) mg/dL Ferritin 6126.3 H 7635.5 H (22.0-322.0) ng/mL Lactate Dehydrogenase 608 H (120-246) U/L C-Reactive Protein 15.5 H (0.0-0.8) mg/dL 06/06/20 06/06/20 Range/Units 05:36 07:51 RBC 3.24 L (4.40-5.60) X 10*6/uL Hgb 10.5 L (13.0-17.0) g/dL Hct 31.6 L (39.6-50.0) % MCV 97.5 H (80.0-97.0) fL MCH 32.4 H (27.0-32.0) pg Fibrinogen (200-500) mg/dL D-Dimer (<0.60) mg/L FEU Sodium 133 L (137-145) mmol/L Chloride 93 L (98-107) mmol/L BUN 60 H (9-20) mg/dL Creatinine 3.53 H (0.66-1.25) mg/dL Glucose 182 H (74-99) mg/dL Ferritin (22.0-322.0) ng/mL Lactate Dehydrogenase (120-246) U/L C-Reactive Protein (0.0-0.8) mg/dL Assessment and Plan Plan: #1. Acute COVID-19 pneumonia, with rapid progression and worsening his oxygenat ion with a past 1 week. The patient was originally established diagnosis of COVID-19 on 05/30/2020. At that time he has some limited crackles. Nevertheless, no significant hypoxemia and the patient was having no respiratory distress and he was hospitalized for treatment of cellulitis lower extremities. He was discharged home and following his discharge, he progressively got worse and presented with significant respiratory distress and hypoxemic respiratory failure with extensive crackling in the lung bases bilaterally and the patient is currently on a BiPAP at a pressure of 14/6 with FiO2 of 100%. Patient was taken Decadron 6 mg by mouth daily on outpatient basis. Currently is alterna ting between the BiPAP and 100% rebreather with 15 L of oxygen by nasal cannula. Oxidation is borderline. Overall pulmonary status is borderline. He is on Decadron the patient also received a 10 mg of IV Tocilizumab #2. Lower extremity swelling and cellulitis, lower extremity Dopplers were nega tive for DVT, treated with Zyvox on outpatient basis with good results #3. Chronic A. fib on Eliquis #4. CAD, with ongoing troponin leak with troponins of 0.2 3 respectively #5. ESRD on hemodialysis last dialysis was on 06/03/2020 #6. Hypertension #7. Previous history of myocardial infarction #8. Hypertension #9. Osteoporosis #10. Obesity with BMI of 37.7 kg/m Plan: Continue BiPAP for respiratory support with pressures of 14/6 with an FiO2 of 100% on this can be alternated with 100% on a regular facemask and oxygen at 15 L nasal cannula. He is preferring the nonrebreather facemask and the nasal cannula rather than the BiPAP. He is currently on 100% nonrebreather and his oxygenation is showing a saturation of 93%. Titrate FiO2 to maintain saturation above 90% Continue decadron Completed Tocilizumab 800 mg IV and he does not have any signs of an infection. Hemodialysis for yesterday with a total of 3 L of ultrafiltration Multivitamin supplements including vitamin C, vitamin D and zinc May not qualify for Remdesivir as the patient's oxygen requirements have been considerably high for now the patient is requiring noninvasive positive pressure ventilator. He has already received 1 dose. Continue long-term anticoagulation with Eliquis 2.5 mg by mouth twice a day Resume home medication will continue to follow. Condition is obviously critical. He has a DO NOT RESUSCITATE, DNI status
[2020-06-06] MEDS: METOPROLOL TARTRATE 25 MG TAB PO SCH ×2 (12:46→22:30)
--- NOTE | 2020-06-06 12:46 | PN ---
PROGRESS NOTE Patient is seen for followup for end-stage renal disease. He was admitted with acute hypoxic respiratory failure, maintained on BiPAP. He did have evidence of volume overload as well and patient was dialyzed yesterday. We had about 3.2 L of ultrafiltration. This morning patient had removed his mask and did not put it back on and therefore he was confused, currently back on BiPAP. Case is discussed with nursing staff. Otherwise, patient had been tolerating oral intake. His O2 saturations had been about 90-88%. Does not have any fever. The COLLECTION SPECIALIST exam was grossly intact prior to the current hypoxia for which he is now maintained on BiPAP. LABS: Show sodium 133, potassium 4.4, chloride 93, BUN 60, creatinine 3.5, hemoglobin 10.5 yesterday. ASSESSMENT: 1. End-stage renal disease, on hemodialysis on a Sunday, , Sunday schedule. Patient will be dialyzed again tomorrow, mostly for volume overload. 2. Congestive heart failure, volume overload. 3. Cardiomyopathy, ejection fraction of about 40-45%. 4. Acute on top of chronic congestive heart failure, mostly systolic. 5. COVID pneumonia, maintained on Decadron. 6. Hypertension. PLAN: Repeat dialysis in a.m. mostly for UF. We will plan for about 2-3 L as tolerated. MMODL / IJN: [id number] /
[2020-06-06] MEDS: FOLIC ACID 1 MG TAB PO SCH (16:59)
[2020-06-06] MEDS: MELATONIN 5 MG TABLET PO SCH (22:30)
[2020-06-07] MEDS: polyethylene glycoL 3350 17 GM POWD.PACK PO SCH ×2 (01:12→23:56)
[2020-06-07] MEDS: DOXAZOSIN 2 MG TAB PO SCH ×2 (01:12→23:55)
--- NOTE | 2020-06-07 07:15 | XR ---
EXAMINATION TYPE: XR chest 1V portable DATE OF EXAM: 06/07/2020 CLINICAL HISTORY: Difficulty breathing and covid progress study. TECHNIQUE: Single AP portable upright view of the chest is obtained. COMPARISON: Chest x-ray from 3 days earlier and older studies FINDINGS: Heart size stable and mildly enlarged with atherosclerotic thoracic aorta. Background Chronic parenchymal changes with left greater than right to lower lung multifocal and conf luent opacities. Relative sparing of upper lungs remain present. Underlying scoliotic curvature or po sitioning redemonstrated with multilevel spurring. IMPRESSION: Cardiomegaly and chronic changes with bilateral multifocal and confluent to lower lung op acities consistent with covid-19 infection, no significant interval change from most recent x-ray.
[2020-06-07] MEDS: DEXAMETHASONE SOD PHOSPHATE 10 MG/ML 1 ML VIAL IV SCH (07:27)
[2020-06-07] MEDS: METOPROLOL TARTRATE 25 MG TAB PO SCH ×2 (07:27→20:41)
[2020-06-07] MEDS: FUROSEMIDE 10 MG/ML 4 ML VIAL IV SCH ×3 (07:27→20:41)
[2020-06-07] MEDS: TRIAMCINOLONE 0.1% CREAM 80 GM TUBE TOPICAL SCH ×2 (07:28→20:41)
[2020-06-07] MEDS: CHOLECALCIFEROL 25 MCG (1000 IU) TABLET PO SCH (07:28)
[2020-06-07] MEDS: ASCORBIC ACID 500 MG TAB PO SCH (07:28)
[2020-06-07] MEDS: ZINC SULFATE 220 MG CAP PO SCH (07:28)
[2020-06-07] MEDS: NYSTATIN 100,000UNIT/GM CREAM 30 GM TUBE TOPICAL SCH ×2 (07:29→20:41)
[2020-06-07 08:38] LABS: D-Dimer 3.26 mg/L FEU (<0.60)
[2020-06-07] MEDS: ALBUTEROL HFA INHALER INHALATION PRN ×3 (08:45→22:23)
[2020-06-07] MEDS: ALPRAZolam 0.25 MG TAB PO PRN (08:55)
[2020-06-07] MEDS: APIXABAN 2.5 MG TABLET PO SCH ×2 (08:56→20:41)
[2020-06-07] MEDS: NIFEdipine XL 30 MG TAB.ER.24 PO SCH (08:56)
[2020-06-07] MEDS: GABAPENTIN 100 MG CAP PO SCH ×2 (08:56→20:40)
[2020-06-07] MEDS: RANOLAZINE 500 MG TAB.ER.12H PO SCH ×2 (08:56→20:40)
[2020-06-07] MEDS: ISOSORBIDE MONONITRATE ER 30 MG TAB.ER.24H PO SCH (08:56)
[2020-06-07 10:29] LABS: Basophils # (A) 0.02 X 10*3/uL (0.00-0.10); Basophils % (A) 0.2 %; Eosinophils # (A) 0 X 10*3/uL (0.04-0.35); Eosinophils % (A) 0 %; HGB 10.5 g/dL (13.0-17.0); Lymphocytes # (A) 0.43 X 10*3/uL (0.90-5.00); Lymphocytes % (A) 3.8 %; MCH 32.9 pg (27.0-32.0); MCHC 33.9 g/dL (32.0-37.0); MCV 97.2 fL (80.0-97.0); Mean Platelet Volume 10.7 fL (9.5-12.2); Monocytes # (A) 0.28 X 10*3/uL (0.20-1.00); Monocytes % (A) 2.5 %; Neutrophils # (A) 10.59 X 10*3/uL (1.80-7.70); Neutrophils % (A) 92.9 %; Platelet Count 236 X 10*3/uL (140-440); RBC 3.19 X 10*6/uL (4.40-5.60); RDW 14.6 % (11.5-14.5); WBC 11.39 X 10*3/uL (4.50-10.00)
--- NOTE | 2020-06-07 10:39 | P.PN ---
Subjective HISTORY OF PRESENTING ILLNESS This is a pleasant 75-year-old male past medical history significant for persistent atrial fibrillation on long-term anticoagulation, coronary artery disease, exact details unavailable follows at the [place], hypertension, dyslipidemia, end-stage renal disease on hemodialysi, chronic diastolic heart failure and obesity. He follows in the office with a college dean at the [place]. We have been asked to see in consultation for heart failure. He was diagnosed with COVID first May 30 and had been treated in the hospital. He was discharged home 06/03. Yesterday he was having worsening shortness of breath and was found to be hypoxic with SpO2 in the 70s. He is currently on Bipap. He also was treated for lower extremity cellulitus on oral antibiotics. He is seen and examined sitting up in the ER on bipap. He appears comfortable. He is only concerned with his lower leg swelling and pain. Most recent echocardiogram obtained September 2019 revealed preserved LV systolic function with ejection fraction 50-55%. 06/06/2020 He is seen sitting up in the chair with nasal cannula. He is apparently not compliant with Bipap. He did wear it last night but cannot tolerate for long according to the nursing staff. Blood pressure 117/70 heart rate 52 afebrile and maintaining oxygen saturation on nasal cannula. WBC 11, hgb 10.5, platelets 236 and d-dimer 3.26. PHYSICAL EXAMINATION CONSTITUTIONAL: No apparent distress. ASSESSMENT COVID 19 Fluid overload Chronic diastolic and systolic heart failure, normal EF in the past. Currently 40-45%. End stage renal disease on hemodialysis Troponin elevation secondary to kidney disease and covid Hyponatremia Lactic acidosis Hypertension Dyslipidemia Coronary artrey disease, exact detail unavailable Chronic persistent atrial fibrillation PLAN Continue current medical regimen. We will follow along as needed, please call with further questions or concerns. Follow up with the [place] as previously established. Nurse Practitioner note has been reviewed, I agree with a documented findings and plan of care. Patient was seen and examined. Objective - Vital Signs Vital signs: Vital Signs Temp 97.5 F L 06/07/20 10:06 Pulse 69 06/07/20 10:06 Resp 21 06/07/20 10:06 BP 102/63 06/07/20 10:06 Pulse Ox 95 06/07/20 10:06 Intake & Output 06/06/20 06/07/20 06/07/20 18:59 06:59 18:59 Other: # Voids 1 - Labs CBC & Chem 7: 06/07/20 07:24 06/06/20 07:51 Labs: Abnormal Lab Results - Last 24 Hours (Table) 06/07/20 06/07/20 Range/Units 07:24 07:24 WBC 11.39 H (4.50-10.00) X 10*3/uL RBC 3.19 L (4.40-5.60) X 10*6/uL Hgb 10.5 L (13.0-17.0) g/dL Hct 31.0 L (39.6-50.0) % MCV 97.2 H (80.0-97.0) fL MCH 32.9 H (27.0-32.0) pg RDW 14.6 H (11.5-14.5) % Immature Gran # 0.07 H (0.00-0.04) X 10*3/uL Neutrophils # 10.59 H (1.80-7.70) X 10*3/uL Lymphocytes # 0.43 L (0.90-5.00) X 10*3/uL Eosinophils # 0 L (0.04-0.35) X 10*3/uL Fibrinogen 532 H (200-500) mg/dL D-Dimer 3.26 H (<0.60) mg/L FEU
[2020-06-07 10:50] LABS: African American GFR (CKD) 13.9 (60.0-200.0); Albumin 3.8 g/dL (3.80-4.90); Anion Gap 16.9 mmol/L (4.00-12.00); BUN/Creat Ratio 20.44 Ratio (12.00-20.00); C Reactive Protein 11.2 mg/dL (0.0-0.8); Calcium 8.5 mg/dL (8.7-10.3); Carbon Dioxide 23.1 mmol/L (21.6-31.8); Globulin 3.8 g/dL (1.6-3.3); Potassium 4.9 mmol/L (3.5-5.5); Total Bilirubin 0.6 mg/dL (0.3-1.2); Total Protein 7.6 g/dL (6.2-8.2)
[2020-06-07 11:44] LABS: Ferritin 8421.2 ng/mL (22.0-322.0)
--- NOTE | 2020-06-07 12:38 | P.PN ---
Subjective Progress Note Date: 06/07/20 Hospital course: Patient is a 75-year-old male with a past medical history of CAD with previous MD resulting in stent placement, chronic diastolic heart failure with an EF of 50-55%, hypertension, hyperlipidemia, ESRD on dialysis Tuesdays//Saturdays (last dialysis treatment session 06/03/20), chronic bilateral lower extremity swelling, chronic back pain, recent diagnosis and hospitalization for bilateral lower extremity cellulitis currently taking cl indamycin 450 mg every 8 hours, and recent diagnosis of Covid 19 virus infection on 05/30/20. Patient had recent admission to the hospital from 05/30/20 through 06/03/20 for treatment of cellulitis of bilateral lower extremities feeling outpatient treatment and was subsequently diagnosed with Covid 19 virus infection in which patient at that time was asymptomatic of symptoms. Patient was discharged home on oral antibiotic clindamycin for treatment of his cellulitis, along with Decadron, melatonin, zinc, vitamin C, and vitamin D for diagnosis of Covid 19. Patient remained asymptomatic upon arrival home on 06/03/20, but both he and his family reports that shortly after awakening the morning of 06/04/20 he began having a frequent coarse cough and shortness of breath which progressively worsened throughout the day and was accompanied by episodes of hemoptysis. Family reports that they placed a pulse ox onto his finger and patient's SpO2 was in the 70s. Patient's son called EMS to transfer his father to the hospital. Upon arrival to the emergency department, patient was found to be in significant respiratory distress requiring oxygen supplementation of 8 L O2 via high flow nasal cannula maintaining SpO2 of 90%. A chest x-ray was completed and reported to have increased pulmonary edema consistent with ARDS vs heart failure. Patient was admitted under our services for acute respiratory failure with hypoxia secondary to Covid pneumonitis and acute on chronic exacerbation of diastolic CHF. Consults also placed to nephrology to continue dialysis, pulmonology secondary to hypoxia, cardiology for elevated troponin and CHF exacerbation and wound care secondary to bilateral lower extremity cellulitis. Patient currently on BiPAP with SpO2 of 92%. Physical exam: Patient seen and fully evaluated at the bedside this morning. He is on BiPAP maintaining SpO2 of 92%. Per nursing staff, patient has reportedly been removing the BiPAP resulting in significant desaturations down to mid to low 80s. Had long discussion with patient and educated on the importance of wearing the mask and the risks he faces with removing the mask which then results in hypoxia. Patient verbalized understanding. Also discussed with patient's family and patient's family also discussed with patient. Currently patient reports feeling short of breath and having a coarse cough, and feeling as though it's very hard to breathe. Patient denies headache, lightheadedness, dizziness, chest pain or palpitations, abdominal pain, nausea, vomiting, or experiencing any diarrhea. General: non toxic,showing mild distress secondary to increased respiratory effort, chronically ill-appearing and appears at stated age Derm: warm, dry Head: atraumatic, normocephalic, symmetric Eyes: EOMI, no lid lag, anicteric sclera Mouth: no lip lesion, mucus membranes moist Cardiovascular: S1S2 reg, no murmur, positive posterior tibial pulses bilaterally, AV fistula left upper extremity with bruit and thrill intact. Lungs: Respirations even, regular, and unlabored at this time. He is on BiPAP with SpO2 of 92%. Coarse crackles at bilateral bases. No wheezes noted. No accessory muscle usage at this time. Abdominal: obese abdomen soft, nontender to palpation, no guarding, no appreciable organomegaly Ext: no gross muscle atrophy, no contractures. Patient with moderate 3+ pitting edema in bilateral lower extremities accompanied by significant erythema and dry skin. Neuro: GCS 15. CN II-XI grossly intact, no focal neuro deficits. Psych: Alert, oriented, appropriate affect Assessment and Plan of care: Acute respiratory failure with hypoxia secondary to Covid pneumonitis -Covid PCR positive on 05/30/20 -Patient was asymptomatic until 06/04/20 in which he developed sudden onset shor tness of breath and cough resulting in respiratory distress. -A chest x-ray was completed and reported to have increased pulmonary edema consistent with ARDS vs heart failure. -Inflammatory markers elevating with d-dimer up to 3.26, ferritin elevating to 8421.2, CRP 11.2, and LDH of 608. -Patient to be provided with oxygen supplementation as needed to maintain SpO2 equal to or greater than 90%. Currently on BiPAP with SpO2 92%. -Continue Decadron 6 mg daily. -Continue Zinc, vitamin D, vitamin C, and melatonin. -Remdesivir single dose given on 06/04/20, Actemra given on 06/05/20 -Pulmonology following, appreciate further recommendations. Acute on Chronic diastolic heart failure -Pro-BMP 8250 -Echocardiogram completed 09/20/19 revealed a preserved EF of 50-55% with mild aortic valve sclerosis and mild pulmonary hypertension. -Repeat echocardiogram completed 06/05/20 revealed a decrease in EF showing mild to moderately impaired ejection fraction of 40-45%. -Cardiology following, appreciate further recommendations. -Lasix 60 mg 3 times a day. -Continued close monitoring of electrolyte function. -Close monitoring of I's and O's Hyponatremia secondary to fluid volume overload resulting from acute on chronic diastolic heart failure, improving -Sodium 133 -Lasix 60 mg 3 times daily -Continue to monitor closely with repeat a.m. labs. Bilateral lower extremity cellulitis, improved -Oral antibiotics completed, swelling now appears more consistent with chronic venous stasis. -Continue daily Dylan wraps -Symptomatic care and pain management, encourage elevation. End-stage renal disease on dialysis -Continue dialysis. -Nephrology following. -Will monitor renal function and electrolyte values closely with repeat a.m. labs. Chronic Paroxysmal atrial fibrillation on anticoagulation with Eliquis -Continue anticoagulation with Eliquis. -Continue Procardia 30 mg daily. Hypertension -Monitor vital signs and continue daily medication management. Hyperlipidemia -Continue daily medication management. -Renal diet. Elevated troponin secondary to ESRD, acute coronary event ruled out -Flat showing no elevation. 0.266, 0.247, 0.238. -Continue dialysis History of CAD with previous MD and stent placement -Continue daily medication management with Imdur, Lasix, atorvastatin, and Eliquis. CODE STATUS: DO NOT RESUSCITATE DVT prophylaxis: Eliquis Discussed with: Patient and RN, and patient's son Asad. Anticipated discharge date: Clinical course to determine. Anticipated discharge place: Home with homecare A total of 45 minutes was spent on the care of this complex patient more than 50% of the time was spent in counseling and care coordination. Objective - Vital Signs Vital signs: Vital Signs Temp 97.5 F L 06/07/20 10:06 Pulse 69 06/07/20 10:06 Resp 21 06/07/20 10:06 BP 102/63 06/07/20 10:06 Pulse Ox 95 06/07/20 10:06 Intake & Output 06/06/20 06/07/20 06/07/20 18:59 06:59 18:59 Other: # Voids 1 - Labs CBC & Chem 7: 06/07/20 07:24 06/07/20 07:24 Labs: Abnormal Lab Results - Last 24 Hours (Table) 06/07/20 06/07/20 06/07/20 Range/Units 07:24 07:24 07:24 WBC 11.39 H (4.50-10.00) X 10*3/uL RBC 3.19 L (4.40-5.60) X 10*6/uL Hgb 10.5 L (13.0-17.0) g/dL Hct 31.0 L (39.6-50.0) % MCV 97.2 H (80.0-97.0) fL MCH 32.9 H (27.0-32.0) pg RDW 14.6 H (11.5-14.5) % Immature Gran # 0.07 H (0.00-0.04) X 10*3/uL Neutrophils # 10.59 H (1.80-7.70) X 10*3/uL Lymphocytes # 0.43 L (0.90-5.00) X 10*3/uL Eosinophils # 0 L (0.04-0.35) X 10*3/uL Fibrinogen 532 H (200-500) mg/dL D-Dimer 3.26 H (<0.60) mg/L FEU Sodium 133 L (135-145) mmol/L Chloride 93 L (96-109) mmol/L Anion Gap 16.90 H (4.00-12.00) mmol/L BUN 92.0 H (9.0-27.0) mg/dL Creatinine 4.5 H (0.6-1.5) mg/dL Est GFR (CKD-EPI)AfAm 13.9 L (60.0-200.0) Est GFR (CKD-EPI)NonAf 12.0 L (60.0-200.0) BUN/Creatinine Ratio 20.44 H (12.00-20.00) Ratio Glucose 168 H (70-110) mg/dL Calcium 8.5 L (8.7-10.3) mg/dL Ferritin 8421.2 H (22.0-322.0) ng/mL C-Reactive Protein 11.2 H (0.0-0.8) mg/dL Globulin 3.8 H (1.6-3.3) g/dL Albumin/Globulin Ratio 1.00 L (1.60-3.17) g/dL
--- NOTE | 2020-06-07 16:11 | P.PN ---
Subjective Progress Note Date: 06/07/20 Principal diagnosis: Acute hypoxic failure failure secondary to acute COVID-19 pneumonia 85-year-old male patient with has an incisional disease, came into the emergency department with worsening shortness of breath and pulse ox was found to be in the low 70s by EMS. Upon his arrival his pulse ox was 86%. Note that the patient was recently in the hospital for lower extremity cellulitis. At that time he was COVID-19 positive. He was not offered any treatment knowing that the patient was hospitalized and he was not a candidate for monoclonal antibodies. At that time, the patient was on room air oxygen and the patient was not having any hypoxemia. Within the past few days, the patient's condition decompensated and he developed COVID-19 related pneumonia. He is currently having a shortness of breath along with cough. The patient's chest x-ray showed significant changes with development of bilateral perihilar and lower lobe pulmonary infiltrates. Currently the patient is on oxygen on a BiPAP at a pressure of 14/6 with an FiO2 of 100%. His current pulse ox is 93%. His blood work is showing a lactic acid level of 1.6, troponins were positive at 0.23 respectively, creatinine was 3.9 with a mean of 71, d-dimer is at 0.8, rest of the inflammatory markers are still pending. Note that his proBNP level is 8250. His last hemodialysis was Comorbid conditions include CAD, previous [place], diastolic heart failure with an ejection fraction of 50-55%, hypertension, end-stage renal disease on hemodialysis 3 times a week, TTS in the left treatment was on 06/03/2020. He has chronic bilateral lower extremity edema, he also has chronic back pain and history of cellulitis of lower extremities treated with clindamycin 450 mg every 8 hours. His COVID-19 diagnosis was established on 05/30/2020. He had a recent hospitalization between 05/30/2020 and 06/03/2020. On 06/06/2020, the patient looks short of breath and quite miserable. Earlier this morning, he took his mask off which is on the percent on a beta facemask and he was trying to eat and he became hypoxic. At that point he was immediately placed on a BiPAP to recover his oxygenation at the pressure of 14/6. Currently is back to 100% on a beta facemask along with 15 L nasal cannula. His current pulse ox is around 98%. His LDH from today was so 8 with a CRP of 15.5. He underwent hemodialysis yesterday with ultrafiltration. Creatinine is down to 3.5 with a BUN of 60. Sodium is 133. Potassium level is at 4.4. He is currently sitting up on a recliner. He has limited reserve and he gets short of breath with limited amount of activity and talking and coughing. He does have a dry cough. Terms of treatment, we offer this patient Decadron 6 mg IV and he also received Tocilizumab 800 Iv x1 , the patient is also on Eliquis., Reevaluated today on 06/07/2020, patient is on BiPAP, FiO2 is at 50%, IPAP of 14 and EPAP of 6. Seems to be comfortable on BiPAP. Pulse oximetry is 93-95%. P atient is afebrile temp is 97. 4. He is hemodynamically stable. Labs today show slight leukocytosis WBC count of 11.39 hemoglobin is 10.5. His fibrinogen is 532 d-dimer is 3.26 coming up from 1.29 yesterday. Renal profile is getting worse with a BUN of 92 creatinine is 4.5. Ferritin is over 8000. LDH is 608. C-reactive protein is 11.2 . During my evaluation, patient was receiving hemodialysis, sitting at a bedside chair, in no distress on BiPAP. Chest x-ray clearly shows diffuse bilateral infiltrates left more so than right Objective - Vital Signs Vital signs: Vital Signs Temp 97.4 F L 06/07/20 14:00 Pulse 60 06/07/20 15:45 Resp 20 06/07/20 15:45 BP 114/54 06/07/20 15:45 Pulse Ox 93 L 06/07/20 14:00 Intake & Output 06/06/20 06/07/20 06/07/20 18:59 06:59 18:59 Output Total 1999 Balance -1999 Output: Hemodialysis 1999 Other: # Voids 1 - Exam GENERAL EXAM: Alert, very pleasant, 75-year-old white male, on BiPAP, in no distress. HEAD: Normocephalic/atraumatic. EYES: Normal reaction of pupils, equal size. Conjunctiva pink, sclera white. NOSE: Clear with pink turbinates. THROAT: No erythema or exudates. NECK: No masses, no JVD, no thyroid enlargement, no adenopathy. CHEST: No chest wall deformity. Symmetrical expansion. LUNGS: Crackles and rhonchi bilaterally at the bases. CVS: Regular rate and rhythm, normal S1 and S2, no gallops, no murmurs, no rubs ABDOMEN: Soft nontender no megaly no rebound no guarding EXTREMITIES: No clubbing, 2+ lower extremity edema and changes of chronic venous stasis in bilateral lower extremities, SKIN: No rashes CENTRAL NERVOUS SYSTEM: No gross focal neurologic deficit, alert oriented 3. PSYCHIATRIC: Normal mood, affect and normal mental status examination. - Labs CBC & Chem 7: 06/07/20 07:24 06/07/20 07:24 Labs: Abnormal Lab Results - Last 24 Hours (Table) 06/07/20 06/07/20 06/07/20 Range/Units 07:24 07:24 07:24 WBC 11.39 H (4.50-10.00) X 10*3/uL RBC 3.19 L (4.40-5.60) X 10*6/uL Hgb 10.5 L (13.0-17.0) g/dL Hct 31.0 L (39.6-50.0) % MCV 97.2 H (80.0-97.0) fL MCH 32.9 H (27.0-32.0) pg RDW 14.6 H (11.5-14.5) % Immature Gran # 0.07 H (0.00-0.04) X 10*3/uL Neutrophils # 10.59 H (1.80-7.70) X 10*3/uL Lymphocytes # 0.43 L (0.90-5.00) X 10*3/uL Eosinophils # 0 L (0.04-0.35) X 10*3/uL Fibrinogen 532 H (200-500) mg/dL D-Dimer 3.26 H (<0.60) mg/L FEU Sodium 133 L (135-145) mmol/L Chloride 93 L (96-109) mmol/L Anion Gap 16.90 H (4.00-12.00) mmol/L BUN 92.0 H (9.0-27.0) mg/dL Creatinine 4.5 H (0.6-1.5) mg/dL Est GFR (CKD-EPI)AfAm 13.9 L (60.0-200.0) Est GFR (CKD-EPI)NonAf 12.0 L (60.0-200.0) BUN/Creatinine Ratio 20.44 H (12.00-20.00) Ratio Glucose 168 H (70-110) mg/dL Calcium 8.5 L (8.7-10.3) mg/dL Ferritin 8421.2 H (22.0-322.0) ng/mL C-Reactive Protein 11.2 H (0.0-0.8) mg/dL Globulin 3.8 H (1.6-3.3) g/dL Albumin/Globulin Ratio 1.00 L (1.60-3.17) g/dL Assessment and Plan Assessment: Impression: Acute hypoxic respiratory failure secondary to COVID-19 pneumonia Chronic lower extremity cellulitis. Negative DVT. Chronic atrial fibrillation, on Eliquis. History of coronary artery disease previous myocardial infarction. End stage renal disease on hemodialysis. Benign essential hypertension. Obesity with BMI of 37.7. Recommendation: Continue BiPAP and titrate accordingly maintaining O2 saturation above 90%. Continue Decadron. Patient received toci Continue hemodialysis every other day. Continue to COVID-19 cocktail. Patient did not qualify for REM Continue Eliquis for his atrial fibrillation. Review home meds. Patient is DO NOT RESUSCITATE CODE STATUS. Will follow. Prognosis is guarded and critical Time with Patient: Less than 30
--- NOTE | 2020-06-07 17:24 | PN ---
PROGRESS NOTE Patient is seen for followup for end-stage renal disease. This morning he is sitting up on a bedside chair. Patient is maintained on BiPAP. He was dialyzed on Sunday and patient will have an extra treatment today, mostly for volume overload. PHYSICAL EXAMINATION: On examination today, blood pressure was 102/63, heart rate 69 per minute. He is afebrile. Examination shows chronic skin changes, lower extremities, with chronic edema. ENVIRONMENTAL HEALTH AIDE exam grossly intact. Heart and lungs are not examined. LABS: Sodium of 133, potassium 4.9, hemoglobin 10.5 g/dL. ASSESSMENT: 1. End-stage renal disease, on hemodialysis on a Sunday, , Sunday schedule. 2. Volume overload, currently improving. 3. COVID pneumonia. 4. Acute hypoxic respiratory failure. 5. Anemia of chronic disease. 6. Chronic kidney disease mineral bone disorder. PLAN: Hemodialysis today, mostly for ultrafiltration, about 2 to 3 liters as tolerated, and patient will have his regular treatment again tomorrow. MMODL / IJN: [id number] /
[2020-06-07] MEDS: ATORVASTATIN 10 MG TAB PO SCH (17:29)
[2020-06-07] MEDS: FOLIC ACID 1 MG TAB PO SCH (17:29)
[2020-06-07] MEDS: oxyCODONE-APAP 5-325MG 1 EACH TAB PO PRN (19:18)
[2020-06-07] MEDS: MELATONIN 5 MG TABLET PO SCH (20:40)
[2020-06-08] MEDS: LORazepam 2 MG/ML INJ IV PRN (03:54)
[2020-06-08] MEDS: ALBUTEROL HFA INHALER INHALATION PRN ×3 (08:21→19:44)
[2020-06-08] MEDS: METOPROLOL TARTRATE 25 MG TAB PO SCH ×2 (08:27→22:00)
[2020-06-08] MEDS: FUROSEMIDE 10 MG/ML 4 ML VIAL IV SCH ×3 (08:28→22:00)
[2020-06-08] MEDS: DEXAMETHASONE SOD PHOSPHATE 10 MG/ML 1 ML VIAL IV SCH (08:28)
[2020-06-08] MEDS: ZINC SULFATE 220 MG CAP PO SCH (08:29)
[2020-06-08] MEDS: CHOLECALCIFEROL 25 MCG (1000 IU) TABLET PO SCH (08:29)
[2020-06-08] MEDS: ASCORBIC ACID 500 MG TAB PO SCH (08:29)
[2020-06-08] MEDS: TRIAMCINOLONE 0.1% CREAM 80 GM TUBE TOPICAL SCH ×2 (08:29→22:00)
[2020-06-08] MEDS: NYSTATIN 100,000UNIT/GM CREAM 30 GM TUBE TOPICAL SCH ×2 (08:29→22:00)
[2020-06-08 09:00] LABS: HCT 32.3 % (39.6-50.0); HGB 10.5 g/dL (13.0-17.0); MCH 32.7 pg (27.0-32.0); MCHC 32.5 g/dL (32.0-37.0); MCV 100.6 fL (80.0-97.0); Mean Platelet Volume 10.5 fL (9.5-12.2); Platelet Count 218 X 10*3/uL (140-440); RBC 3.21 X 10*6/uL (4.40-5.60); RDW 15.2 % (11.5-14.5); WBC 10.34 X 10*3/uL (4.50-10.00)
[2020-06-08] MEDS: APIXABAN 2.5 MG TABLET PO SCH ×2 (10:15→18:20)
[2020-06-08] MEDS: GABAPENTIN 100 MG CAP PO SCH (10:15)
[2020-06-08] MEDS: ISOSORBIDE MONONITRATE ER 30 MG TAB.ER.24H PO SCH (10:16)
[2020-06-08] MEDS: NIFEdipine XL 30 MG TAB.ER.24 PO SCH (10:16)
[2020-06-08] MEDS: RANOLAZINE 500 MG TAB.ER.12H PO SCH ×2 (10:17→22:00)
--- NOTE | 2020-06-08 10:29 | P.CONS ---
History of Present Illness - Reason for Consult Consult date: 06/08/20 wound care - History of Present Illness This is a 75-year-old gentleman being seen by the wound care center on [address] for cellulitis. Patient has no open ulcerations at this time. There is no redness or drainage noted to bilateral lower extremities. Patient states that his legs were red and when he came into the hospital on Sunday however there is no erythema noted today. Patient's past medical history significant for atrial fibrillation, coronary artery disease, heart failure, hypertension, arthritis redness, end-stage renal failure with dialysis. Review Of Systems: Constitutional: No fever, no chills, no night sweats. No weight change. No weakness, fatigue or lethargy. No daytime sleepiness. Integumentary:no wounds, no lesions. No rash or pruritus. No unusual bruising. No change in hair or nails. Physical exam: General Appearance: Alert, cooperative, no distress, appears stated age. Skin: Skin color, texture, tugor normal, no rashes or lesions. No open ulcerations Neurologic: Alert oriented x3 Assessment/plan: 1. Cellulitis: No open ulcerations noted. No need for any treatment at this time. For the consultation any questions please contact the wound care center DNP note has been reviewed and discussed with Dr. Chambers and the impression and plan of care has been directed as dictated. Past Medical History Past Medical History: Atrial Fibrillation, Coronary Artery Disease (CAD), Chest Pain / Angina, Heart Failure, Eye Disorder, Hypertension, Myocardial Infarction (AK), Osteoarthritis (OA), Renal Disease Additional Past Medical History / Comment(s): Dialysis , , SUN, Past bradyca rdia/hyperkalemia, UTIs, chronic lymphedema, bilateral lower leg cellulitis,RLS, chronic low back pain/bulging/herniated discs-sleeps in a recliner, past gout, indirect exposure to agent orange, cataracts, R index finger injury/surgery with limited ROM.. Last Myocardial Infarction Date:: 2009 History of Any Multi-Drug Resistant Organisms: None Reported Year Discovered:: None MDRO Source:: None Past Surgical History: Heart Catheterization With Stent, Tonsillectomy Additional Past Surgical History / Comment(s): [id number] stents, rt hand sx to repair severed lig/tendons(age 20). current dialysis catheter Past Anesthesia/Blood Transfusion Reactions: No Reported Reaction Additional Past Anesthesia/Blood Transfusion Reaction / Comm: clausterphobia Date of Last Stent Placement:: 2009 Past Psychological History: Depression Smoking Status: Never smoker Past Alcohol Use History: None Reported Past Drug Use History: None Reported - Past Family History Mother Family Medical History: Cancer Additional Family Medical History / Comment(s): breast cancer, heart problems was on warfarin(pt stated she bled out) Father Family Medical History: Coronary Artery Disease (CAD), Myocardial Infarction (AK) Additional Family Medical History / Comment(s): Father had his 1st AK in his 50s and then from his 2nd AK at the age of 74yrs. Medications and Allergies Home Medications Medication Instructions Recorded Confirmed Type Ranolazine [Ranexa] 1,000 mg PO BID@1000,2200 04/27/17 06/04/20 History Nitroglycerin Sl Tabs [Nitrostat] 0.4 mg SL Q5M PRN 05/07/19 06/04/20 History rOPINIRole HCL [Requip] 1 mg PO TID@0000,1000,1700 05/07/19 06/04/20 History Folic Acid 1 mg PO DAILY@1700 08/12/19 06/04/20 History Polyethylene Glycol 3350 [Miralax] 17 gm PO HS@0000 08/12/19 06/04/20 History Furosemide [Lasix] 60 mg PO TID@0000,1000,1700 09/27/19 06/04/20 History Gabapentin [Neurontin] 100 mg PO BID@1000,2200 09/27/19 06/04/20 History LORazepam [Ativan] 1 mg PO BID@1000,2200 09/27/19 06/04/20 History NIFEdipine XL [Procardia XL] 30 mg PO DAILY@1000 09/27/19 06/04/20 History Terazosin [Hytrin] 8 mg PO HS@0000 09/27/19 06/04/20 History Isosorbide Mononitrate ER [Imdur] 30 mg PO DAILY@1000 10/28/19 06/04/20 History oxyCODONE HCL [Roxicodone] 10 mg PO HS@0000 10/28/19 06/04/20 History Apixaban [Eliquis] 2.5 mg PO BID@1000,2200 01/27/20 06/04/20 History Rosuvastatin [Crestor] 5 mg PO MOWEFR@1700 01/27/20 06/04/20 History oxyCODONE HCL [Roxicodone] 5 mg PO BID@1000,1700 01/27/20 06/04/20 History Ascorbic Acid [Vitamin C] 1,000 mg PO DAILY 30 Days #30 06/03/20 06/04/20 Rx tablet Cholecalciferol [Vitamin D3 (25 100 mcg PO DAILY 30 Days #30 tablet 06/03/20 06/04/20 Rx Mcg = 1000 Iu)] Clindamycin [Cleocin] 450 mg PO Q8H 5 Days #15 cap 06/03/20 06/04/20 Rx Dexamethasone [Decadron] 6 mg PO DAILY 7 Days #7 tablet 06/03/20 06/04/20 Rx Melatonin 5 mg PO HS 30 Days #30 tablet 06/03/20 06/04/20 Rx Nystatin 100,000Unit/gm Cream 1 applic TOPICAL BID 7 Days #1 06/03/20 06/04/20 Rx [Mycostatin Cream] cream Triamcinolone 0.1% Cream [Kenalog 1 applicatio TOPICAL BID 7 Days #1 06/03/20 06/04/20 Rx 0.1% Cream] tube Zinc Sulfate [Orazinc] 220 mg PO DAILY 30 Days #30 capsule 06/03/20 06/04/20 Rx Allergies Allergy/AdvReac Type Severity Reaction Status Date / Time pravastatin Allergy Rash/Hives Verified 06/04/20 17:01 amlodipine AdvReac CONSTIPATIO Verified 06/04/20 17:01 N atenolol AdvReac MALE ED Verified 06/04/20 17:01 hydrochlorothiazide AdvReac RENAL Verified 06/04/20 17:01 IMPAIRMENT Physical Exam Vitals: Vital Signs Temp Pulse Resp BP Pulse Ox 06/08/20 09:54 97.9 F 61 18 122/73 90 L 06/08/20 08:23 91 L 06/08/20 05:08 97.4 F L 65 15 107/63 88 L 06/08/20 02:07 95 06/08/20 02:00 97.3 F L 64 15 117/66 95 06/07/20 21:48 97.6 F 65 15 123/57 90 L 06/07/20 18:14 97.5 F L 69 20 128/64 88 L 06/07/20 15:45 60 20 114/54 06/07/20 14:00 97.4 F L 71 19 119/72 93 L Intake and Output 06/07/20 06/08/20 06/08/20 22:59 06:59 14:59 Intake Total 540 Output Total 1999 225 Balance -1999 315 Intake: Oral 540 Output: Urine 225 Hemodialysis 1999 Other: Voiding Method Urinal # Voids 0 1 Results CBC & Chem 7: 06/08/20 05:36 06/07/20 07:24 Labs: Abnormal Lab Results - Last 24 Hours (Table) 06/07/20 06/07/20 06/08/20 Range/Units 07:24 07:24 05:36 WBC 11.39 H 10.34 H (4.50-10.00) X 10*3/uL RBC 3.19 L 3.21 L (4.40-5.60) X 10*6/uL Hgb 10.5 L 10.5 L (13.0-17.0) g/dL Hct 31.0 L 32.3 L (39.6-50.0) % MCV 97.2 H 100.6 H (80.0-97.0) fL MCH 32.9 H 32.7 H (27.0-32.0) pg RDW 14.6 H 15.2 H (11.5-14.5) % Absolute Nucleated RBC 0.02 H (0.00-0.00) X 10*3/uL Immature Gran # 0.07 H (0.00-0.04) X 10*3/uL Neutrophils # 10.59 H (1.80-7.70) X 10*3/uL Lymphocytes # 0.43 L (0.90-5.00) X 10*3/uL Eosinophils # 0 L (0.04-0.35) X 10*3/uL NRBC/100 WBC Diff 0.2 H (0.0-0.0) /100 WBCS Sodium 133 L (135-145) mmol/L Chloride 93 L (96-109) mmol/L Anion Gap 16.90 H (4.00-12.00) mmol/L BUN 92.0 H (9.0-27.0) mg/dL Creatinine 4.5 H (0.6-1.5) mg/dL Est GFR (CKD-EPI)AfAm 13.9 L (60.0-200.0) Est GFR (CKD-EPI)NonAf 12.0 L (60.0-200.0) BUN/Creatinine Ratio 20.44 H (12.00-20.00) Ratio Glucose 168 H (70-110) mg/dL Calcium 8.5 L (8.7-10.3) mg/dL Ferritin 8421.2 H (22.0-322.0) ng/mL C-Reactive Protein 11.2 H (0.0-0.8) mg/dL Globulin 3.8 H (1.6-3.3) g/dL Albumin/Globulin Ratio 1.00 L (1.60-3.17) g/dL Assessment and Plan (1) Bilateral leg edema Current Visit: No Status: Acute Code(s): R60.0 - LOCALIZED EDEMA SNOMED Code(s): 226149623 (2) Cellulitis Current Visit: No Status: Acute Code(s): L03.90 - CELLULITIS, UNSPECIFIED SNOMED Code(s): 281111442
[2020-06-08 11:45] LABS: African American GFR (CKD) 15.5 (60.0-200.0); Anion Gap 15.8 mmol/L (4.00-12.00); BUN/Creat Ratio 18.54 Ratio (12.00-20.00); Calcium 8.2 mg/dL (8.7-10.3); Carbon Dioxide 24.2 mmol/L (21.6-31.8); Ferritin 6749.4 ng/mL (22.0-322.0); Magnesium 2.2 mg/dL (1.5-2.4); Non-African American GFR(CKD) 13.4 (60.0-200.0); Potassium 4.9 mmol/L (3.5-5.5)
--- NOTE | 2020-06-08 13:49 | P.PN ---
Subjective Progress Note Date: 06/08/20 Hospital course: Patient is a 75-year-old male with a past medical history of CAD with previous PR resulting in stent placement, chronic diastolic heart failure with an EF of 50-55%, hypertension, hyperlipidemia, ESRD on dialysis Tuesdays//Saturdays (last dialysis treatment session 06/03/20), chronic bilateral lower extremity swelling, chronic back pain, recent diagnosis and hospitalization for bilateral lower extremity cellulitis currently taking cl indamycin 450 mg every 8 hours, and recent diagnosis of Covid 19 virus infection on 05/30/20. Patient had recent admission to the hospital from 05/30/20 through 06/03/20 for treatment of cellulitis of bilateral lower extremities feeling outpatient treatment and was subsequently diagnosed with Covid 19 virus infection in which patient at that time was asymptomatic of symptoms. Patient was discharged home on oral antibiotic clindamycin for treatment of his cellulitis, along with Decadron, melatonin, zinc, vitamin C, and vitamin D for diagnosis of Covid 19. Patient remained asymptomatic upon arrival home on 06/03/20, but both he and his family reports that shortly after awakening the morning of 06/04/20 he began having a frequent coarse cough and shortness of breath which progressively worsened throughout the day and was accompanied by episodes of hemoptysis. Family reports that they placed a pulse ox onto his finger and patient's SpO2 was in the 70s. Patient's son called EMS to transfer his father to the hospital. Upon arrival to the emergency department, patient was found to be in significant respiratory distress requiring oxygen supplementation of 8 L O2 via high flow nasal cannula maintaining SpO2 of 90%. A chest x-ray was completed and reported to have increased pulmonary edema consistent with ARDS vs heart failure. Patient was admitted under our services for acute respiratory failure with hypoxia secondary to Covid pneumonitis and acute on chronic exacerbation of diastolic CHF. Consults also placed to nephrology to continue dialysis, pulmonology secondary to hypoxia, cardiology for elevated troponin and CHF exacerbation and wound care secondary to bilateral lower extremity cellulitis. Patient currently on 15 L high flow nasal cannula with SpO2 of 90%. Physical exam: 06/08/20: Patient seen and fully evaluated at the bedside this morning. He was sitting up in the chair on 15 L high flow nasal cannula maintaining SpO2 of 90%. Pt ate breakfst. He reports feeling short of breath and continuing to cough. Patient denies headache, lightheadedness, dizziness, chest pain or palpitations, abdominal pain, nausea, vomiting, or experiencing any diarrhea. General: non toxic,showing mild distress secondary to increased respiratory effort, chronically ill-appearing and appears at stated age Derm: warm, dry Head: atraumatic, normocephalic, symmetric Eyes: EOMI, no lid lag, anicteric sclera Mouth: no lip lesion, mucus membranes moist Cardiovascular: S1S2 reg, no murmur, positive posterior tibial pulses bilaterally, AV fistula left upper extremity with bruit and thrill intact. Lungs: Respirations even, regular, and unlabored at this time. He is on BiPAP with SpO2 of 92%. Coarse crackles at bilateral bases. No wheezes noted. No accessory muscle usage at this time. Abdominal: obese abdomen soft, nontender to palpation, no guarding, no appreciable organomegaly Ext: no gross muscle atrophy, no contractures. Patient with moderate 3+ pitting edema in bilateral lower extremities accompanied by significant erythema and dry skin. Neuro: GCS 15. CN II-XI grossly intact, no focal neuro deficits. Psych: Alert, oriented, appropriate affect Assessment and Plan of care: Acute respiratory failure with hypoxia secondary to Covid pneumonitis -Covid PCR positive on 05/30/20 -Patient was asymptomatic until 06/04/20 in which he developed sudden onset shortness of breath and cough resulting in respiratory distress. -A chest x-ray was completed and reported to have increased pulmonary edema consistent with ARDS vs heart failure. -Inflammatory markers : d-dimer up to 3.26, ferritin 6749.4, CRP 11.2, and LDH of 715. -Patient to be provided with oxygen supplementation as needed to maintain SpO2 equal to or greater than 90%. Currently on 15 L high flow nasal cannula with SpO2 of 90%.. -Continue Decadron 6 mg daily. -Continue Zinc, vitamin D, vitamin C, and melatonin. -Remdesivir single dose given on 06/04/20, Actemra given on 06/05/20 -Pulmonology following, appreciate further recommendations. Acute on Chronic diastolic heart failure -Pro-BMP 3515 -Echocardiogram completed 09/20/19 revealed a preserved EF of 50-55% with mild aortic valve sclerosis and mild pulmonary hypertension. -Repeat echocardiogram completed 06/05/20 revealed a decrease in EF showing mild to moderately impaired ejection fraction of 40-45%. -Cardiology following, appreciate further recommendations. -Lasix 60 mg 3 times a day. -Continued close monitoring of electrolyte function. -Close monitoring of I's and O's Hyponatremia secondary to fluid volume overload resulting from acute on chronic diastolic heart failure, resolved -Sodium 137 Bilateral lower extremity cellulitis, improved -Oral antibiotics completed, swelling now appears more consistent with chronic venous stasis. -Continue daily Dylan wraps -Symptomatic care and pain management, encourage elevation. End-stage renal disease on dialysis -Continue dialysis. -Nephrology following. -Will monitor renal function and electrolyte values closely with repeat a.m. labs. Chronic Paroxysmal atrial fibrillation on anticoagulation with Eliquis -Continue anticoagulation with Eliquis. -Continue Procardia 30 mg daily. Hypertension -Monitor vital signs and continue daily medication management. Hyperlipidemia -Continue daily medication management. -Renal diet. Elevated troponin secondary to ESRD, acute coronary event ruled out -Flat showing no elevation. 0.266, 0.247, 0.238. -Continue dialysis History of CAD with previous PR and stent placement -Continue daily medication management with Imdur, Lasix, atorvastatin, and Eliquis. CODE STATUS: DO NOT RESUSCITATE/DO NOT INTUBATE DVT prophylaxis: Eliquis Discussed with: Patient and RN, and patient's Mayra and his son Asad. Anticipated discharge date: Clinical course to determine. Anticipated discharge place: Home with homecare A total of 45 minutes was spent on the care of this complex patient more than 50% of the time was spent in counseling and care coordination. Objective - Vital Signs Vital signs: Vital Signs Temp 97.9 F 06/08/20 09:54 Pulse 61 06/08/20 09:54 Resp 18 06/08/20 09:54 BP 122/73 06/08/20 09:54 Pulse Ox 90 L 06/08/20 09:54 Intake & Output 06/07/20 06/08/20 06/08/20 18:59 06:59 18:59 Intake Total 540 Output Total 1999 225 Balance -1999 315 Intake: Oral 540 Output: Urine 225 Hemodialysis 1999 Other: Voiding Method Urinal # Voids 0 1 - Labs CBC & Chem 7: 06/08/20 05:36 06/08/20 05:36 Labs: Abnormal Lab Results - Last 24 Hours (Table) 04/06/07/20 06/08/20 Range/Units 07:24 07:24 05:36 WBC 11.39 H 10.34 H (4.50-10.00) X 10*3/uL RBC 3.19 L 3.21 L (4.40-5.60) X 10*6/uL Hgb 10.5 L 10.5 L (13.0-17.0) g/dL Hct 31.0 L 32.3 L (39.6-50.0) % MCV 97.2 H 100.6 H (80.0-97.0) fL MCH 32.9 H 32.7 H (27.0-32.0) pg RDW 14.6 H 15.2 H (11.5-14.5) % Absolute Nucleated RBC 0.02 H (0.00-0.00) X 10*3/uL Immature Gran # 0.07 H (0.00-0.04) X 10*3/uL Neutrophils # 10.59 H (1.80-7.70) X 10*3/uL Lymphocytes # 0.43 L (0.90-5.00) X 10*3/uL Eosinophils # 0 L (0.04-0.35) X 10*3/uL NRBC/100 WBC Diff 0.2 H (0.0-0.0) /100 WBCS Sodium 133 L (135-145) mmol/L Chloride 93 L (96-109) mmol/L Anion Gap 16.90 H (4.00-12.00) mmol/L BUN 92.0 H (9.0-27.0) mg/dL Creatinine 4.5 H (0.6-1.5) mg/dL Est GFR (CKD-EPI)AfAm 13.9 L (60.0-200.0) Est GFR (CKD-EPI)NonAf 12.0 L (60.0-200.0) BUN/Creatinine Ratio 20.44 H (12.00-20.00) Ratio Glucose 168 H (70-110) mg/dL Calcium 8.5 L (8.7-10.3) mg/dL Ferritin 8421.2 H (22.0-322.0) ng/mL C-Reactive Protein 11.2 H (0.0-0.8) mg/dL Globulin 3.8 H (1.6-3.3) g/dL Albumin/Globulin Ratio 1.00 L (1.60-3.17) g/dL
[2020-06-08 14:10] LABS: C Reactive Protein 7.6 mg/dL (0.0-0.8)
--- NOTE | 2020-06-08 14:11 | PN ---
PROGRESS NOTE Patient is seen for followup for end-stage renal disease. He is being treated for COVID-19 pneumonia as well as fluid overload. The patient had dialysis yesterday, mostly for ultrafiltration where he had about 2 L of ultrafiltration and is scheduled for dialysis again today. If he tolerates another 3 L, we will be about 8 L of ultrafiltration over the past 3 days. PHYSICAL EXAMINATION: On examination today, patient is comfortable. His blood pressure this morning 107/63. He is maintained on high-flow oxygen by nasal cannula. Heart rate about 65 per minute. He is afebrile. Examination of lower extremities shows chronic skin changes, chronic edema, somewhat improved. Abdomen is morbidly obese. The patient is alert, oriented x3. However, he is very forgetful. Heart and lungs are not examined. LABS: Labs show hemoglobin 10.5 g/dL, sodium 137, potassium 4.9. ASSESSMENT: 1. End-stage renal disease, on hemodialysis on a Sunday, , Sunday schedule. Patient is scheduled for hemodialysis today. 2. Volume overload status post UF of about 5.2 L over 2 days. The patient will be dialyzed again today and we plan for 2-3 L again, which would make it about 8 L of UF over the last 3 days. 3. Acute hypoxic respiratory failure secondary to COVID pneumonia. 4. Hypertension. 5. Chronic kidney disease mineral bone disorder. PLAN: Repeat hemodialysis today. Goal UF 2-3 L as tolerated. MMODL / IJN: [id number] /
[2020-06-08] MEDS: FOLIC ACID 1 MG TAB PO SCH (17:24)
--- NOTE | 2020-06-08 17:27 | P.PN ---
Subjective Progress Note Date: 06/08/20 Principal diagnosis: Acute hypoxic failure failure secondary to acute COVID-19 pneumonia 85-year-old male patient with has an incisional disease, came into the emergency department with worsening shortness of breath and pulse ox was found to be in the low 70s by EMS. Upon his arrival his pulse ox was 86%. Note that the patient was recently in the hospital for lower extremity cellulitis. At that time he was COVID-19 positive. He was not offered any treatment knowing that the patient was hospitalized and he was not a candidate for monoclonal antibodies. At that time, the patient was on room air oxygen and the patient was not having any hypoxemia. Within the past few days, the patient's condition decompensated and he developed COVID-19 related pneumonia. He is currently having a shortness of breath along with cough. The patient's chest x-ray showed significant changes with development of bilateral perihilar and lower lobe pulmonary infiltrates. Currently the patient is on oxygen on a BiPAP at a pressure of 14/6 with an FiO2 of 100%. His current pulse ox is 93%. His blood work is showing a lactic acid level of 1.6, troponins were positive at 0.23 respectively, creatinine was 3.9 with a mean of 71, d-dimer is at 0.8, rest of the inflammatory markers are still pending. Note that his proBNP level is 8250. His last hemodialysis was Comorbid conditions include CAD, previous RI, diastolic heart failure with an ejection fraction of 50-55%, hypertension, end-stage renal disease on hemodialysis 3 times a week, TTS in the left treatment was on 06/03/2020. He has chronic bilateral lower extremity edema, he also has chronic back pain and history of cellulitis of lower extremities treated with clindamycin 450 mg every 8 hours. His COVID-19 diagnosis was established on 05/30/2020. He had a recent hospitalization between 05/30/2020 and 06/03/2020. On 06/06/2020, the patient looks short of breath and quite miserable. Earlier this morning, he took his mask off which is on the percent on a beta facemask and he was trying to eat and he became hypoxic. At that point he was immediately placed on a BiPAP to recover his oxygenation at the pressure of 14/6. Currently is back to 100% on a beta facemask along with 15 L nasal cannula. His current pulse ox is around 98%. His LDH from today was so 8 with a CRP of 15.5. He underwent hemodialysis yesterday with ultrafiltration. Creatinine is down to 3.5 with a BUN of 60. Sodium is 133. Potassium level is at 4.4. He is currently sitting up on a recliner. He has limited reserve and he gets short of breath with limited amount of activity and talking and coughing. He does have a dry cough. Terms of treatment, we offer this patient Decadron 6 mg IV and he also received Tocilizumab 800 Iv x1 , the patient is also on Eliquis., Reevaluated today on 06/07/2020, patient is on BiPAP, FiO2 is at 50%, IPAP of 14 and EPAP of 6. Seems to be comfortable on BiPAP. Pulse oximetry is 93-95%. P atient is afebrile temp is 97. 4. He is hemodynamically stable. Labs today show slight leukocytosis WBC count of 11.39 hemoglobin is 10.5. His fibrinogen is 532 d-dimer is 3.26 coming up from 1.29 yesterday. Renal profile is getting worse with a BUN of 92 creatinine is 4.5. Ferritin is over 8000. LDH is 608. C-reactive protein is 11.2 . During my evaluation, patient was receiving hemodialysis, sitting at a bedside chair, in no distress on BiPAP. Chest x-ray clearly shows diffuse bilateral infiltrates left more so than right Patient was reevaluated today on 06/08/2020, remains on 15 L high flow and nonrebreather mask, O2 saturation is ranging between 86% up to 90%. Intermittently the patient has been on BiPAP. Patient remains afebrile, he is hemodynamically doing well, CBC is relatively normal. His electrolytes are normal. BUN is 76, creatinine is 4.1. LDH is 608. C-reactive protein is 7.6. Chest x-ray yesterday continued to show diffuse and worsening pulmonary infiltrates. Patient remains on hemodialysis. Objective - Vital Signs Vital signs: Vital Signs Temp 97.1 F L 06/08/20 13:56 Pulse 62 06/08/20 13:56 Resp 19 06/08/20 13:56 BP 118/66 06/08/20 13:56 Pulse Ox 86 L 06/08/20 15:29 Intake & Output 06/07/20 06/08/20 06/08/20 18:59 06:59 18:59 Intake Total 540 Output Total 1999 225 Balance -1999 315 Intake: Oral 540 Output: Urine 225 Hemodialysis 1999 Other: Voiding Method Urinal # Voids 0 1 - Exam GENERAL EXAM: Alert, very pleasant, 75-year-old white male, high flow oxygen. HEAD: Normocephalic/atraumatic. EYES: Normal reaction of pupils, equal size. Conjunctiva pink, sclera white. NOSE: Clear with pink turbinates. THROAT: No erythema or exudates. NECK: No masses, no JVD, no thyroid enlargement, no adenopathy. CHEST: No chest wall deformity. Symmetrical expansion. LUNGS: Crackles and rhonchi bilaterally at the bases. CVS: Regular rate and rhythm, normal S1 and S2, no gallops, no murmurs, no rubs ABDOMEN: Soft nontender no megaly no rebound no guarding EXTREMITIES: No clubbing, 2+ lower extremity edema and changes of chronic venous stasis in bilateral lower extremities, SKIN: No rashes CENTRAL NERVOUS SYSTEM: No gross focal neurologic deficit, alert oriented 3. PSYCHIATRIC: Normal mood, affect and normal mental status examination. - Labs CBC & Chem 7: 06/08/20 05:36 06/08/20 05:36 Labs: Abnormal Lab Results - Last 24 Hours (Table) 06/08/20 06/08/20 Range/Units 05:36 05:36 WBC 10.34 H (4.50-10.00) X 10*3/uL RBC 3.21 L (4.40-5.60) X 10*6/uL Hgb 10.5 L (13.0-17.0) g/dL Hct 32.3 L (39.6-50.0) % MCV 100.6 H (80.0-97.0) fL MCH 32.7 H (27.0-32.0) pg RDW 15.2 H (11.5-14.5) % Absolute Nucleated RBC 0.02 H (0.00-0.00) X 10*3/uL NRBC/100 WBC Diff 0.2 H (0.0-0.0) /100 WBCS Anion Gap 15.80 H (4.00-12.00) mmol/L BUN 76.0 H (9.0-27.0) mg/dL Creatinine 4.1 H (0.6-1.5) mg/dL Est GFR (CKD-EPI)AfAm 15.5 L (60.0-200.0) Est GFR (CKD-EPI)NonAf 13.4 L (60.0-200.0) Glucose 142 H (70-110) mg/dL Calcium 8.2 L (8.7-10.3) mg/dL Ferritin 6749.4 H (22.0-322.0) ng/mL Lactate Dehydrogenase 715 H (120-246) U/L C-Reactive Protein 7.6 H (0.0-0.8) mg/dL Assessment and Plan Assessment: Impression: Acute hypoxic respiratory failure secondary to COVID-19 pneumonia Chronic lower extremity cellulitis. Negative DVT. Chronic atrial fibrillation, on Eliquis. History of coronary artery disease previous myocardial infarction. End stage renal disease on hemodialysis. Benign essential hypertension. Obesity with BMI of 37.7. Recommendation: Continue high flow oxygen and alternate with BiPAP. Titrate accordingly. Continue Decadron. Patient received toci Continue hemodialysis every other day. Continue to COVID-19 cocktail. Patient did not qualify for REM Continue Eliquis for his atrial fibrillation. Patient is DO NOT RESUSCITATE CODE STATUS. Will follow. Prognosis is guarded and critical Time with Patient: Less than 30
[2020-06-08] MEDS: MELATONIN 5 MG TABLET PO SCH (22:00)
[2020-06-09] MEDS: LORazepam 2 MG/ML INJ IV PRN ×4 (00:30→20:26)
[2020-06-09] MEDS: DOXAZOSIN 2 MG TAB PO SCH ×2 (00:31→23:55)
[2020-06-09] MEDS: GABAPENTIN 100 MG CAP PO SCH ×3 (00:34→23:05)
[2020-06-09] MEDS: polyethylene glycoL 3350 17 GM POWD.PACK PO SCH (00:34)
[2020-06-09] MEDS: ALBUTEROL HFA INHALER INHALATION PRN ×4 (08:02→21:14)
[2020-06-09] MEDS: DEXAMETHASONE SOD PHOSPHATE 10 MG/ML 1 ML VIAL IV SCH (08:13)
[2020-06-09] MEDS: FUROSEMIDE 10 MG/ML 4 ML VIAL IV SCH ×3 (08:13→23:05)
--- NOTE | 2020-06-09 09:33 | P.PN ---
Subjective Progress Note Date: 06/09/20 Hospital course: Patient is a 75-year-old male with a past medical history of CAD with previous KS resulting in stent placement, chronic diastolic heart failure with an EF of 50-55%, hypertension, hyperlipidemia, ESRD on dialysis Tuesdays//Saturdays (last dialysis treatment session 06/03/20), chronic bilateral lower extremity swelling, chronic back pain, recent diagnosis and hospitalization for bilateral lower extremity cellulitis currently taking cl indamycin 450 mg every 8 hours, and recent diagnosis of Covid 19 virus infection on 05/30/20. Patient had recent admission to the hospital from 05/30/20 through 06/03/20 for treatment of cellulitis of bilateral lower extremities feeling outpatient treatment and was subsequently diagnosed with Covid 19 virus infection in which patient at that time was asymptomatic of symptoms. Patient was discharged home on oral antibiotic clindamycin for treatment of his cellulitis, along with Decadron, melatonin, zinc, vitamin C, and vitamin D for diagnosis of Covid 19. Patient remained asymptomatic upon arrival home on 06/03/20, but both he and his family reports that shortly after awakening the morning of 06/04/20 he began having a frequent coarse cough and shortness of breath which progressively worsened throughout the day and was accompanied by episodes of hemoptysis. Family reports that they placed a pulse ox onto his finger and patient's SpO2 was in the 70s. Patient's son called EMS to transfer his father to the hospital. Upon arrival to the emergency department, patient was found to be in significant respiratory distress requiring oxygen supplementation of 8 L O2 via high flow nasal cannula maintaining SpO2 of 90%. A chest x-ray was completed and reported to have increased pulmonary edema consistent with ARDS vs heart failure. Patient was admitted under our services for acute respiratory failure with hypoxia secondary to Covid pneumonitis and acute on chronic exacerbation of diastolic CHF. Consults also placed to nephrology to continue dialysis, pulmonology secondary to hypoxia, cardiology for elevated troponin and CHF exacerbation and wound care secondary to bilateral lower extremity cellulitis. Patient currently on 15 L high flow nasal cannula with SpO2 of 90%. Physical exam: 06/09/20: Patient seen and fully evaluated at the bedside this morning. He was sitting up in the chair on BiPAP with SpO2 of 93%. Dr. King at bedside secondary to pt's AV fistula no longer functioning. Dr. King discussed options with pt's children, Asad and Linda as pt's is also in the hospital admitted with COVID at this time. Plan is for pt to have temporary dialysis catheter placed this afternoon. Pt very anxious an being medicated for his anxiety by RN. Pt reports having a hard time breathing and feeling very thirsty, but he denies having any headache, lightheadedness, dizziness, chest pain or palpitations, abdominal pain, nausea, vomiting, or experiencing any diarrhea. General: non toxic,showing mild distress secondary to increased respiratory effort, chronically ill-appearing and appears at stated age Derm: warm, dry Head: atraumatic, normocephalic, symmetric Eyes: EOMI, no lid lag, anicteric sclera Mouth: no lip lesion, mucus membranes moist Cardiovascular: S1S2 reg, no murmur, positive posterior tibial pulses bilaterally, AV fistula left upper extremity with bruit and thrill intact. Lungs: Respirations even, regular, and unlabored at this time. He is on BiPAP with SpO2 of 92%. Coarse crackles at bilateral bases. No wheezes noted. No accessory muscle usage at this time. Abdominal: obese abdomen soft, nontender to palpation, no guarding, no appreciable organomegaly Ext: no gross muscle atrophy, no contractures. Patient with moderate 3+ pitting edema in bilateral lower extremities accompanied by significant erythema and dry skin. Neuro: GCS 15. CN II-XI grossly intact, no focal neuro deficits. Psych: Alert, oriented, appropriate affect Assessment and Plan of care: Acute respiratory failure with hypoxia secondary to Covid pneumonitis -Covid PCR positive on 05/30/20 -Patient was asymptomatic until 06/04/20 in which he developed sudden onset shortness of breath and cough resulting in respiratory distress. -A chest x-ray was completed and reported to have increased pulmonary edema consistent with ARDS vs heart failure. -Inflammatory markers : d-dimer up to 3.26, ferritin 5480.3, CRP 5.1, and LDH of 803. -Patient to be provided with oxygen supplementation as needed to maintain SpO2 equal to or greater than 90%. Currently on BiPAP with SpO2 of 93%. -Continue Decadron 6 mg daily. -Continue Zinc, vitamin D, vitamin C, and melatonin. -Remdesivir single dose given on 06/04/20, Actemra given on 06/05/20 -Pulmonology following, appreciate further recommendations. Acute on Chronic diastolic heart failure -Pro-BMP 8250 -Echocardiogram completed 09/20/19 revealed a preserved EF of 50-55% with mild aortic valve sclerosis and mild pulmonary hypertension. -Repeat echocardiogram completed 06/05/20 revealed a decrease in EF showing mild to moderately impaired ejection fraction of 40-45%. -Cardiology following, appreciate further recommendations. -Lasix 40 mg IVP 3 times a day. -Continued close monitoring of electrolyte function. -Close monitoring of I's and O's Hyponatremia secondary to fluid volume overload resulting from acute on chronic diastolic heart failure, resolved -Sodium 137 Bilateral lower extremity cellulitis, improved -Oral antibiotics completed, swelling now appears more consistent with chronic venous stasis. -Continue daily Dylan wraps -Symptomatic care and pain management, encourage elevation. End-stage renal disease on dialysis -Continue dialysis. -Nephrology following. -Will monitor renal function and electrolyte values closely with repeat a.m. labs. Chronic Paroxysmal atrial fibrillation on anticoagulation with Eliquis -Continue anticoagulation with Eliquis. -Continue Procardia 30 mg daily. Hypertension -Monitor vital signs and continue daily medication management. Hyperlipidemia -Continue daily medication management. -Renal diet. Elevated troponin secondary to ESRD, acute coronary event ruled out -Flat showing no elevation. 0.266, 0.247, 0.238. -Continue dialysis History of CAD with previous KS and stent placement -Continue daily medication management with Imdur, Lasix, atorvastatin, and Eliquis. CODE STATUS: DO NOT RESUSCITATE/DO NOT INTUBATE DVT prophylaxis: Eliquis Discussed with: Patient and RN, and patient's son Asad. Anticipated discharge date: Clinical course to determine. Anticipated discharge place: Home with homecare A total of 45 minutes was spent on the care of this complex patient more than 50% of the time was spent in counseling and care coordination. Objective - Vital Signs Vital signs: Vital Signs Temp 97.3 F L 06/08/20 21:59 Pulse 69 06/09/20 05:16 Resp 20 06/09/20 07:11 BP 125/58 06/09/20 05:16 Pulse Ox 86 L 06/09/20 08:02 Intake & Output 06/08/20 06/09/20 06/09/20 18:59 06:59 18:59 Output Total 125 Balance -125 Output: Urine 125 Other: Voiding Method Urinal # Voids 0 1 # Bowel Movements 0 - Labs CBC & Chem 7: 06/09/20 05:42 06/09/20 05:42 Labs: Abnormal Lab Results - Last 24 Hours (Table) 06/08/20 Range/Units 05:36 Anion Gap 15.80 H (4.00-12.00) mmol/L BUN 76.0 H (9.0-27.0) mg/dL Creatinine 4.1 H (0.6-1.5) mg/dL Est GFR (CKD-EPI)AfAm 15.5 L (60.0-200.0) Est GFR (CKD-EPI)NonAf 13.4 L (60.0-200.0) Glucose 142 H (70-110) mg/dL Calcium 8.2 L (8.7-10.3) mg/dL Ferritin 6749.4 H (22.0-322.0) ng/mL Lactate Dehydrogenase 715 H (120-246) U/L C-Reactive Protein 7.6 H (0.0-0.8) mg/dL
[2020-06-09] MEDS ORDERED: LORazepam 2 MG/ML INJ IV PRN (09:43)
[2020-06-09] MEDS: PANTOPRAZOLE 40 MG/10 ML VIAL IVP SCH (09:49)
[2020-06-09] MEDS: ZINC SULFATE 220 MG CAP PO SCH (09:49)
[2020-06-09] MEDS: ASCORBIC ACID 500 MG TAB PO SCH (09:49)
[2020-06-09] MEDS: CHOLECALCIFEROL 25 MCG (1000 IU) TABLET PO SCH (09:49)
[2020-06-09] MEDS: RANOLAZINE 500 MG TAB.ER.12H PO SCH ×2 (09:50→23:21)
[2020-06-09] MEDS: METOPROLOL TARTRATE 25 MG TAB PO SCH ×2 (09:50→23:06)
[2020-06-09] MEDS: ISOSORBIDE MONONITRATE ER 30 MG TAB.ER.24H PO SCH (09:50)
[2020-06-09] MEDS: NIFEdipine XL 30 MG TAB.ER.24 PO SCH (09:51)
[2020-06-09] MEDS: APIXABAN 2.5 MG TABLET PO SCH ×2 (09:52→23:06)
[2020-06-09] MEDS: TRIAMCINOLONE 0.1% CREAM 80 GM TUBE TOPICAL SCH ×2 (09:52→23:06)
[2020-06-09] MEDS: NYSTATIN 100,000UNIT/GM CREAM 30 GM TUBE TOPICAL SCH ×2 (09:52→23:06)
[2020-06-09 10:56] LABS: HCT 34.3 % (39.6-50.0); HGB 11.1 g/dL (13.0-17.0); MCH 31.9 pg (27.0-32.0); MCHC 32.4 g/dL (32.0-37.0); MCV 98.6 fL (80.0-97.0); Platelet Count 214 X 10*3/uL (140-440); RBC 3.48 X 10*6/uL (4.40-5.60); RDW 14.9 % (11.5-14.5); WBC 12.08 X 10*3/uL (4.50-10.00)
--- NOTE | 2020-06-09 12:08 | PN ---
PROGRESS NOTE The patient is seen for followup for end-stage renal disease. His AV graft was clotted yesterday therefore patient did not have a treatment. This morning he became more hypoxic, currently requiring a BiPAP again. There are plans for declotting down the road. In the meantime, patient will have IJ dialysis catheter placed. He is not able to lie down to have the procedure done in the OR and therefore the declot is planned hopefully down the road in the next few days once his respiratory status improves. PHYSICAL EXAMINATION: On examination today, patient is awake. He is comfortable, currently on BiPAP, quite anxious. Blood pressure is 139/63, heart rate 63 per minute. He is afebrile. Examination of the lower extremities shows chronic skin changes, chronic edema. 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 LABS: Labs are not available from today. ASSESSMENT: 1. End-stage renal disease, on hemodialysis on a Sunday, Sunday, Sunday schedule, currently with clotted AV graft, scheduled to have an IJ catheter placed and then declotting down the road when respiratory status is most stable. 2. Fluid overload. 3. Acute hypoxic respiratory failure secondary to COVID pneumonia and fluid overload. 4. Chronic kidney disease mineral bone disorder. PLAN: Hemodialysis today and then again in a.m. with plans for declotting of AV fistula down the road. MMAMINA / ALFREDON: [id number] /
[2020-06-09 12:46] LABS: African American GFR (CKD) 12.2 (60.0-200.0); Anion Gap 15.4 mmol/L (4.00-12.00); BUN/Creat Ratio 19.6 Ratio (12.00-20.00); C Reactive Protein 5.1 mg/dL (0.0-0.8); Calcium 8.6 mg/dL (8.7-10.3); Carbon Dioxide 25.6 mmol/L (21.6-31.8); Ferritin 5480.3 ng/mL (22.0-322.0); Magnesium 2.8 mg/dL (1.5-2.4); Non-African American GFR(CKD) 10.5 (60.0-200.0); Potassium 5.3 mmol/L (3.5-5.5)
--- NOTE | 2020-06-09 13:22 | P.OP ---
Date of Procedure: 06/09/20 Description of Procedure: DATE OF SERVICE: [06/09/2020]. SURGEON: Tracy King DO RADIOPHONE OPERATOR: None PREOPERATIVE DIAGNOSIS: [End-stage renal disease, thrombosed left upper extremity loop forearm graft, CO VID pneumonia, respiratory distress on continuous BiPAP]. POSTOPERATIVE DIAGNOSIS: [Same]. OPERATION: Ultrasound guided access right internal jugular vein Central venous catheter placement for dialysis ANESTHESIA: Local ESTIMATED BLOOD LOSS: 5 mL SPECIMENS REMOVED: none COMPLICATIONS: none immediately apparent The patient is a 75-year-old male with end-stage renal disease and other comorbid conditions as well as COVID pneumonia requiring continuous BiPAP who has difficulty laying flat. They have been utilizing a left upper extremity forearm loop graft for dialysis as recently as 2 days ago, when they went to utilize it yesterday, the graft was thrombosed. There is no mention or concerns of previous issues with the graft. The patient states that has been functioning well at dialysis. Given his overall clinical picture, is amount of oxygenation requirements and other factors I do believe he would be better suited by going forward with a temporary dialysis catheter placement at this time for more runs of dialysis and then possible attention to the loop forearm graft in the near future therefore this is all discussed with the patient and both of his children as his is also hospitalized currently with coronavirus The patient was laid flat, the right neck was prepped and draped in usual sterile fashion. A preprocedure timeout was performed, all parties were in agreement. The ultrasound was utilized in the right internal jugular vein was i dentified. The skin overlying was anesthetized 1% lidocaine plain. Using a multipurpose needle the vein was cannulated under direct visualization on first attempt with return of dark venous, nonpulsatile blood. A guidewire was advanced freely. At that point the subcu cutaneous tissues were serially dilated and a previously flushed 16 cm Mahurkar catheter was placed. The catheter was aspirated and flushed freely. The catheter was then sutured in place and the capsule replaced. A sterile dressing was placed. A post procedure chest x-ray is pending. The patient tolerated the procedure well
--- NOTE | 2020-06-09 13:28 | P.GSCN ---
History of Present Illness Consult date: 06/09/20 Reason for Consult: Nonfunctioning left AV graft Requesting physician: Macie Rios History of present illness: A very pleasant 85-year-old male patient with a history of chronic [place] fibrillation on [place], coronary artery disease, hypertension, and end- stage renal disease on hemodialysis who was admitted to the hospital with worsening of shortness of breath and was found to be hypoxic by EMS. He was diagnosed with COVID-19 pneumonia. He is known to vascular surgery, he underwent a left upper extremity loop AV graft in January [address] King. He has had no problems outpatient hemodialysis with his graft, however during this hospitalization he had to hemodialysis treatments without any dif ficulty,however yesterday his AV graft was found to be clotted. For this reason vascular surgery has been consulted. The patient unfortunately had worsening respiratory status through the night and now is on BiPAP. Through the evening he had 15 L of high flow nasal cannula oxygenation in the 70s. He was started on BiPAP this morning, oxygen levels now in the mid 90s. The patient also states he has a difficult time with lying flat, he has been sitting up and sleeping in a chair for the past 9 years. He states he has a significant history of GERD. He currently denies any chest pain, he is having shortness of breath and difficulty with breathing. He denies pain in his left upper extremi ty. He denies any nausea, vomiting, or abdominal pain. Review of Systems A 14 point review of systems was completed and all pertinent positives and negatives as stated in the HPI Past Medical History Past Medical History: Atrial Fibrillation, Coronary Artery Disease (CAD), Chest Pain / Angina, Heart Failure, Eye Disorder, Hypertension, Myocardial Infarction ([place]), Osteoarthritis (OA), Renal Disease Additional Past Medical History / Comment(s): Dialysis TU, TH, SAT, Past bradycardia/hyperkalemia, UTIs, chronic lymphedema, bilateral lower leg cellulitis,RLS, chronic low back pain/bulging/herniated discs-sleeps in a recliner, past gout, indirect exposure to agent orange, cataracts, R index finger injury/surgery with limited ROM.. Last Myocardial Infarction Date:: 2009 History of Any Multi-Drug Resistant Organisms: None Reported Year Discovered:: None MDRO Source:: None Past Surgical History: Heart Catheterization With Stent, Tonsillectomy Additional Past Surgical History / Comment(s): [id number] stents, rt hand sx to repair severed lig/tendons(age 20). current dialysis catheter Past Anesthesia/Blood Transfusion Reactions: No Reported Reaction Additional Past Anesthesia/Blood Transfusion Reaction / Comm: clausterphobia Date of Last Stent Placement:: 2009 Past Psychological History: Depression Smoking Status: Never smoker Past Alcohol Use History: None Reported Past Drug Use History: None Reported - Past Family History Mother Family Medical History: Cancer Additional Family Medical History / Comment(s): breast cancer, heart problems was on warfarin(pt stated she bled out) Father Family Medical History: Coronary Artery Disease (CAD), Myocardial Infarction ([place]) Additional Family Medical History / Comment(s): Father had his 1st [place] in his 50s and then from his 2nd [place] at the age of 74yrs. Medications and Allergies Home Medications Medication Instructions Recorded Confirmed Type Ranolazine [Ranexa] 1,000 mg PO BID@1000,2200 04/27/17 06/04/20 History Nitroglycerin Sl Tabs [Nitrostat] 0.4 mg SL Q5M PRN 05/07/19 06/04/20 History rOPINIRole HCL [Requip] 1 mg PO TID@0000,1000,1700 05/07/19 06/04/20 History Folic Acid 1 mg PO DAILY@1700 08/12/19 06/04/20 History Polyethylene Glycol 3350 [Miralax] 17 gm PO HS@0000 08/12/19 06/04/20 History Furosemide [Lasix] 60 mg PO TID@0000,1000,1700 09/27/19 06/04/20 History Gabapentin [Neurontin] 100 mg PO BID@1000,2200 09/27/19 06/04/20 History LORazepam [Ativan] 1 mg PO BID@1000,2200 09/27/19 06/04/20 History NIFEdipine XL [Procardia XL] 30 mg PO DAILY@1000 09/27/19 06/04/20 History Terazosin [Hytrin] 8 mg PO HS@0000 09/27/19 06/04/20 History Isosorbide Mononitrate ER [Imdur] 30 mg PO DAILY@1000 10/28/19 06/04/20 History oxyCODONE HCL [Roxicodone] 10 mg PO HS@0000 10/28/19 06/04/20 History Apixaban [Eliquis] 2.5 mg PO BID@1000,2200 01/27/20 06/04/20 History Rosuvastatin [Crestor] 5 mg PO MOWEFR@1700 01/27/20 06/04/20 History oxyCODONE HCL [Roxicodone] 5 mg PO BID@1000,1700 01/27/20 06/04/20 History Ascorbic Acid [Vitamin C] 1,000 mg PO DAILY 30 Days #30 06/03/20 06/04/20 Rx tablet Cholecalciferol [Vitamin D3 (25 100 mcg PO DAILY 30 Days #30 tablet 06/03/20 06/04/20 Rx Mcg = 1000 Iu)] Clindamycin [Cleocin] 450 mg PO Q8H 5 Days #15 cap 06/03/20 06/04/20 Rx Dexamethasone [Decadron] 6 mg PO DAILY 7 Days #7 tablet 06/03/20 06/04/20 Rx Melatonin 5 mg PO HS 30 Days #30 tablet 06/03/20 06/04/20 Rx Nystatin 100,000Unit/gm Cream 1 applic TOPICAL BID 7 Days #1 06/03/20 06/04/20 Rx [Mycostatin Cream] cream Triamcinolone 0.1% Cream [Kenalog 1 applicatio TOPICAL BID 7 Days #1 06/03/20 06/04/20 Rx 0.1% Cream] tube Zinc Sulfate [Orazinc] 220 mg PO DAILY 30 Days #30 capsule 06/03/20 06/04/20 Rx Allergies Allergy/AdvReac Type Severity Reaction Status Date / Time pravastatin Allergy Rash/Hives Verified 06/04/20 17:01 amlodipine AdvReac CONSTIPATIO Verified 06/04/20 17:01 N atenolol AdvReac MALE ED Verified 06/04/20 17:01 hydrochlorothiazide AdvReac RENAL Verified 06/04/20 17:01 IMPAIRMENT Surgical - Exam Vital Signs Pulse Resp 78 24 06/04/20 16:00 06/04/20 16:00 General appearance: The patient is alert, oriented, currently on BiPAP. HET: Head is normocephalic and atraumatic. Neck: Supple without lymphadenopathy. Trachea midline. Heart: S1 S2. Regular rate and rhythm. Lungs: Crackles and rhonchi in bilateral bases. Abdomen: Soft, nontender, nondistended. Extremities: Normal skin color and turgor. Radial pulses +2 bilaterally Neurological: No focal deficits. Strength and sensation are grossly intact. Results - Labs 06/09/20 05:42 06/09/20 05:42 Abnormal Lab Results - Last 24 Hours (Table) 06/08/20 06/08/20 Range/Units 05:36 05:36 WBC 10.34 H (4.50-10.00) X 10*3/uL RBC 3.21 L (4.40-5.60) X 10*6/uL Hgb 10.5 L (13.0-17.0) g/dL Hct 32.3 L (39.6-50.0) % MCV 100.6 H (80.0-97.0) fL MCH 32.7 H (27.0-32.0) pg RDW 15.2 H (11.5-14.5) % Absolute Nucleated RBC 0.02 H (0.00-0.00) X 10*3/uL NRBC/100 WBC Diff 0.2 H (0.0-0.0) /100 WBCS Anion Gap 15.80 H (4.00-12.00) mmol/L BUN 76.0 H (9.0-27.0) mg/dL Creatinine 4.1 H (0.6-1.5) mg/dL Est GFR (CKD-EPI)AfAm 15.5 L (60.0-200.0) Est GFR (CKD-EPI)NonAf 13.4 L (60.0-200.0) Glucose 142 H (70-110) mg/dL Calcium 8.2 L (8.7-10.3) mg/dL Ferritin 6749.4 H (22.0-322.0) ng/mL Lactate Dehydrogenase 715 H (120-246) U/L C-Reactive Protein 7.6 H (0.0-0.8) mg/dL Diabetes panel 06/08/20 Range/Units 05:36 Sodium 137 (135-145) mmol/L Potassium 4.9 (3.5-5.5) mmol/L Chloride 97 (96-109) mmol/L Carbon Dioxide 24.2 (21.6-31.8) mmol/L BUN 76.0 H (9.0-27.0) mg/dL Creatinine 4.1 H (0.6-1.5) mg/dL Glucose 142 H (70-110) mg/dL Calcium 8.2 L (8.7-10.3) mg/dL Calcium panel 06/08/20 Range/Units 05:36 Calcium 8.2 L (8.7-10.3) mg/dL Pituitary panel 06/08/20 Range/Units 05:36 Sodium 137 (135-145) mmol/L Potassium 4.9 (3.5-5.5) mmol/L Chloride 97 (96-109) mmol/L Carbon Dioxide 24.2 (21.6-31.8) mmol/L BUN 76.0 H (9.0-27.0) mg/dL Creatinine 4.1 H (0.6-1.5) mg/dL Glucose 142 H (70-110) mg/dL Calcium 8.2 L (8.7-10.3) mg/dL Adrenal panel 06/08/20 Range/Units 05:36 Sodium 137 (135-145) mmol/L Potassium 4.9 (3.5-5.5) mmol/L Chloride 97 (96-109) mmol/L Carbon Dioxide 24.2 (21.6-31.8) mmol/L BUN 76.0 H (9.0-27.0) mg/dL Creatinine 4.1 H (0.6-1.5) mg/dL Glucose 142 H (70-110) mg/dL Calcium 8.2 L (8.7-10.3) mg/dL Assessment and Plan Assessment: 1. End-stage renal disease on hemodialysis with clotted left AV graft 2. Acute hypoxic respiratory failure secondary to COVID-19 pneumonia 3. Chronic atrial fibrillation on Eliquis 4. History of coronary artery disease 5. Hypertension Plan: 1. Continue symptomatic and supportive care 2. Continue recommendations by primary medicine team and pulmonology 3. Hold Eliquis 4. Dr. King spoke to both the patient, his son, and daughter regarding proceeding with options for access for hemodialysis treatment. At this time it appears the patient's left AV graft is clotted, discussion with son and daughter regarding proceeding with thrombectomy of dialysis catheter versus temporary IJ dialysis catheter placement. At this time due to patient's respiratory status, it is believed that patient would better tolerate bedside IJ temporary cath versus thrombectomy, although he is high risk for either procedure. The patient, son and daughter were agreeable to proceed with the temporary IJ catheter placement at this time. Thank you for this consultation, we will continue to follow The impression and plan of care has been dictated as directed. Dr. King I performed a history and examination of this patient, discussed the same with the dictator. I agree with the dictator's note ,documented as a scribe. Any additional findings or plans will be noted.
--- NOTE | 2020-06-09 13:37 | XR ---
EXAMINATION TYPE: XR chest 1V confirm line [facility] DATE OF EXAM: 06/09/2020 CLINICAL HISTORY: Right internal jugular dialysis catheter placement.. TECHNIQUE: Single AP portable upright view of the chest is obtained. COMPARISON: Chest x-ray from 2 days earlier and older studies. FINDINGS: The new right intrajugular central venous catheter terminates in the SVC. No pneumothorax noted. Heart size stable and mildly enlarged with atherosclerotic thoracic aorta. Background Chronic parenchymal changes with bilateral multifocal and confluent opacities. Underlying scoliotic curvature or positioning redemonstrated with multilevel spurring. IMPRESSION: Cardiomegaly and chronic changes with bilateral multifocal and confluent opacities redemo nstrated consistent with covid-19 infection, no significant interval change from most recent x-ray. N o pneumothorax after right internal jugular dialysis catheter placement.
[2020-06-09] MEDS ORDERED: MIDODRINE 5 MG TAB PO PRN (16:30)
[2020-06-09] MEDS ORDERED: HALOPERIDOL LACTATE 5 MG/ML 1 ML VIAL IM PRN (16:51)
[2020-06-09] MEDS: FOLIC ACID 1 MG TAB PO SCH (17:00)
[2020-06-09] MEDS: ATORVASTATIN 10 MG TAB PO SCH (17:00)
--- NOTE | 2020-06-09 17:58 | P.PN ---
Subjective Progress Note Date: 06/09/20 Principal diagnosis: Acute hypoxic failure failure secondary to acute COVID-19 pneumonia 85-year-old male patient with has an incisional disease, came into the emergency department with worsening shortness of breath and pulse ox was found to be in the low 70s by EMS. Upon his arrival his pulse ox was 86%. Note that the patient was recently in the hospital for lower extremity cellulitis. At that time he was COVID-19 positive. He was not offered any treatment knowing that the patient was hospitalized and he was not a candidate for monoclonal antibodies. At that time, the patient was on room air oxygen and the patient was not having any hypoxemia. Within the past few days, the patient's condition decompensated and he developed COVID-19 related pneumonia. He is currently having a shortness of breath along with cough. The patient's chest x-ray showed significant changes with development of bilateral perihilar and lower lobe pulmonary infiltrates. Currently the patient is on oxygen on a BiPAP at a pressure of 14/6 with an FiO2 of 100%. His current pulse ox is 93%. His blood work is showing a lactic acid level of 1.6, troponins were positive at 0.23 respectively, creatinine was 3.9 with a mean of 71, d-dimer is at 0.8, rest of the inflammatory markers are still pending. Note that his proBNP level is 8250. His last hemodialysis was Comorbid conditions include CAD, previous [place], diastolic heart failure with an ejection fraction of 50-55%, hypertension, end-stage renal disease on hemodialysis 3 times a week, TTS in the left treatment was on 06/03/2020. He has chronic bilateral lower extremity edema, he also has chronic back pain and history of cellulitis of lower extremities treated with clindamycin 450 mg every 8 hours. His COVID-19 diagnosis was established on 05/30/2020. He had a recent hospitalization between 05/30/2020 and 06/03/2020. On 06/06/2020, the patient looks short of breath and quite miserable. Earlier this morning, he took his mask off which is on the percent on a beta facemask and he was trying to eat and he became hypoxic. At that point he was immediately placed on a BiPAP to recover his oxygenation at the pressure of 14/6. Currently is back to 100% on a beta facemask along with 15 L nasal cannula. His current pulse ox is around 98%. His LDH from today was so 8 with a CRP of 15.5. He underwent hemodialysis yesterday with ultrafiltration. Creatinine is down to 3.5 with a BUN of 60. Sodium is 133. Potassium level is at 4.4. He is currently sitting up on a recliner. He has limited reserve and he gets short of breath with limited amount of activity and talking and coughing. He does have a dry cough. Terms of treatment, we offer this patient Decadron 6 mg IV and he also received Tocilizumab 800 Iv x1 , the patient is also on Eliquis., Reevaluated today on 06/07/2020, patient is on BiPAP, FiO2 is at 50%, IPAP of 14 and EPAP of 6. Seems to be comfortable on BiPAP. Pulse oximetry is 93-95%. P atient is afebrile temp is 97. 4. He is hemodynamically stable. Labs today show slight leukocytosis WBC count of 11.39 hemoglobin is 10.5. His fibrinogen is 532 d-dimer is 3.26 coming up from 1.29 yesterday. Renal profile is getting worse with a BUN of 92 creatinine is 4.5. Ferritin is over 8000. LDH is 608. C-reactive protein is 11.2 . During my evaluation, patient was receiving hemodialysis, sitting at a bedside chair, in no distress on BiPAP. Chest x-ray clearly shows diffuse bilateral infiltrates left more so than right Patient was reevaluated today on 06/08/2020, remains on 15 L high flow and nonrebreather mask, O2 saturation is ranging between 86% up to 90%. Intermittently the patient has been on BiPAP. Patient remains afebrile, he is hemodynamically doing well, CBC is relatively normal. His electrolytes are normal. BUN is 76, creatinine is 4.1. LDH is 608. C-reactive protein is 7.6. Chest x-ray yesterday continued to show diffuse and worsening pulmonary infiltrates. Patient remains on hemodialysis. Patient was reevaluated today on 06/09/2020, remains on high flow cannula and intermittently on BiPAP, his O2 saturation is 93% on 15 L high flow cannula. Again at times the patient goes on BiPAP, and feels a bit better when on BiPAP. Remains afebrile, he is hemodynamically stable, WBC count is 12.08 hemoglobin is 11.1. Electrolytes are normal BUN is 98 creatinine is 5.0. LDH is 803 C- reactive protein is 5.1. Ferritin level is over 5000. Patient remains on hemodialysis. Underwent central venous catheter placement for dialysis today patient had thrombosed left upper extremity loop forearm graft. Hence required dialysis catheter placement today by vascular surgery. This was done in the internal jugular vein. Objective - Vital Signs Vital signs: Vital Signs Temp 97.4 F L 06/09/20 16:48 Pulse 71 06/09/20 16:48 Resp 25 H 06/09/20 16:48 BP 106/60 06/09/20 16:48 Pulse Ox 93 L 06/09/20 16:48 Intake & Output 06/08/20 06/09/20 06/09/20 18:59 06:59 18:59 Output Total 125 Balance -125 Output: Urine 125 Other: Voiding Method Urinal Urinal # Voids 0 1 # Bowel Movements 0 - Exam GENERAL EXAM: Alert, very pleasant, 75-year-old white male, remains on high flow oxygen. HEAD: Normocephalic/atraumatic. EYES: Normal reaction of pupils, equal size. Conjunctiva pink, sclera white. A right internal jugular dialysis catheter is noted NOSE: Clear with pink turbinates. THROAT: No erythema or exudates. NECK: No masses, no JVD, no thyroid enlargement, no adenopathy. CHEST: No chest wall deformity. Symmetrical expansion. LUNGS: Crackles and rhonchi bilaterally at the bases. CVS: Regular rate and rhythm, normal S1 and S2, no gallops, no murmurs, no rubs ABDOMEN: Soft nontender no megaly no rebound no guarding EXTREMITIES: No clubbing, 2+ lower extremity edema and changes of chronic venous stasis in bilateral lower extremities, SKIN: No rashes CENTRAL NERVOUS SYSTEM: No gross focal neurologic deficit, alert oriented 3. PSYCHIATRIC: Normal mood, affect and normal mental status examination. - Labs CBC & Chem 7: 06/09/20 05:42 06/09/20 05:42 Labs: Abnormal Lab Results - Last 24 Hours (Table) 06/09/20 06/09/20 Range/Units 05:42 05:42 WBC 12.08 H (4.50-10.00) X 10*3/uL RBC 3.48 L (4.40-5.60) X 10*6/uL Hgb 11.1 L (13.0-17.0) g/dL Hct 34.3 L (39.6-50.0) % MCV 98.6 H (80.0-97.0) fL RDW 14.9 H (11.5-14.5) % Anion Gap 15.40 H (4.00-12.00) mmol/L BUN 98.0 H (9.0-27.0) mg/dL Creatinine 5.0 H (0.6-1.5) mg/dL Est GFR (CKD-EPI)AfAm 12.2 L (60.0-200.0) Est GFR (CKD-EPI)NonAf 10.5 L (60.0-200.0) Glucose 154 H (70-110) mg/dL Calcium 8.6 L (8.7-10.3) mg/dL Magnesium 2.8 H (1.5-2.4) mg/dL Ferritin 5480.3 H (22.0-322.0) ng/mL Lactate Dehydrogenase 803 H (120-246) U/L C-Reactive Protein 5.1 H (0.0-0.8) mg/dL Assessment and Plan Assessment: Impression: Acute hypoxic respiratory failure secondary to COVID-19 pneumonia Chronic lower extremity cellulitis. Negative DVT. Chronic atrial fibrillation, on Eliquis. History of coronary artery disease previous myocardial infarction. End stage renal disease on hemodialysis. A new right internal jugular catheter was placed today. Benign essential hypertension. Obesity with BMI of 37.7. Recommendation: Continue high flow oxygen and alternate with BiPAP. Titrate accordingly. Continue Decadron. Patient received toci Continue hemodialysis every other day. Continue to COVID-19 cocktail. Patient did not qualify for REM Continue Eliquis for his atrial fibrillation. Patient is DO NOT RESUSCITATE CODE STATUS. Will follow. Prognosis is guarded and critical Time with Patient: Less than 30
[2020-06-09] MEDS: MELATONIN 5 MG TABLET PO SCH (23:06)
[2020-06-10] MEDS: polyethylene glycoL 3350 17 GM POWD.PACK PO SCH ×2 (00:25→23:58)
[2020-06-10] MEDS: NYSTATIN 100,000UNIT/GM CREAM 30 GM TUBE TOPICAL SCH ×3 (00:28→20:39)
[2020-06-10] MEDS: TRIAMCINOLONE 0.1% CREAM 80 GM TUBE TOPICAL SCH ×3 (00:38→20:39)
[2020-06-10] MEDS: LORazepam 2 MG/ML INJ IV PRN ×6 (01:09→23:14)
[2020-06-10] MEDS ORDERED: LORazepam 2 MG/ML INJ IV STA (02:53)
[2020-06-10] MEDS ORDERED: FLUTICASONE 220 MCG INHALER INHALATION STA (03:00)
[2020-06-10] MEDS ORDERED: BUDESONIDE 1 MG/2 ML NEBU INHALATION STA (03:10)
[2020-06-10] MEDS: ALBUTEROL HFA INHALER INHALATION PRN (03:11)
[2020-06-10 09:23] LABS: HCT 34.6 % (39.6-50.0); HGB 11.3 g/dL (13.0-17.0); MCH 32.6 pg (27.0-32.0); MCHC 32.7 g/dL (32.0-37.0); MCV 99.7 fL (80.0-97.0); Mean Platelet Volume 10.8 fL (9.5-12.2); Platelet Count 175 X 10*3/uL (140-440); RBC 3.47 X 10*6/uL (4.40-5.60); RDW 15.1 % (11.5-14.5); WBC 13.09 X 10*3/uL (4.50-10.00)
[2020-06-10] MEDS: ISOSORBIDE MONONITRATE ER 30 MG TAB.ER.24H PO SCH (09:29)
[2020-06-10] MEDS: METOPROLOL TARTRATE 25 MG TAB PO SCH ×2 (09:29→20:15)
[2020-06-10] MEDS: FUROSEMIDE 10 MG/ML 4 ML VIAL IV SCH ×3 (09:30→23:15)
[2020-06-10] MEDS: PANTOPRAZOLE 40 MG/10 ML VIAL IVP SCH (09:30)
[2020-06-10] MEDS: DEXAMETHASONE SOD PHOSPHATE 10 MG/ML 1 ML VIAL IV SCH (09:30)
[2020-06-10] MEDS: APIXABAN 2.5 MG TABLET PO SCH ×2 (09:30→20:15)
[2020-06-10] MEDS: ASCORBIC ACID 500 MG TAB PO SCH (11:11)
[2020-06-10] MEDS: CHOLECALCIFEROL 25 MCG (1000 IU) TABLET PO SCH (11:11)
[2020-06-10] MEDS: NIFEdipine XL 30 MG TAB.ER.24 PO SCH (11:12)
[2020-06-10] MEDS: ZINC SULFATE 220 MG CAP PO SCH (11:12)
[2020-06-10] MEDS: RANOLAZINE 500 MG TAB.ER.12H PO SCH ×2 (11:12→20:26)
[2020-06-10] MEDS: GABAPENTIN 100 MG CAP PO SCH ×2 (11:12→20:15)
[2020-06-10 11:39] LABS: Anion Gap 14.3 mmol/L (4.00-12.00); BUN/Creat Ratio 17.25 Ratio (12.00-20.00); C Reactive Protein 3.2 mg/dL (0.0-0.8); Calcium 8.6 mg/dL (8.7-10.3); Carbon Dioxide 21.7 mmol/L (21.6-31.8); Magnesium 2.2 mg/dL (1.5-2.4); Non-African American GFR(CKD) 13.8 (60.0-200.0); Potassium 4.3 mmol/L (3.5-5.5)
[2020-06-10 12:00] VITALS: BMI 39.5
[2020-06-10 12:06] LABS: Ferritin 4420.6 ng/mL (22.0-322.0)
--- NOTE | 2020-06-10 12:31 | P.PN ---
Subjective Progress Note Date: 06/10/20 Principal diagnosis: ESRD Patient seen and examined lying in bed. His BiPAP is at 100%, he appears to still have difficulty breathing. He is status post right IJ temporary hemod ialysis catheter placement yesterday. He underwent hemodialysis yesterday, he is scheduled again today. Objective - Vital Signs Vital signs: Vital Signs Temp 97.4 F L 06/10/20 05:06 Pulse 73 06/10/20 05:06 Resp 38 H 06/10/20 05:06 BP 133/72 06/10/20 05:06 Pulse Ox 87 L 06/10/20 05:06 Intake & Output 06/09/20 06/10/20 06/10/20 18:59 06:59 18:59 Output Total 3250 Balance -3250 Output: Urine 250 Hemodialysis 3000 Other: Voiding Method Urinal Urinal - Exam General appearance: The patient is alert, oriented, on BiPAP HET: Head is normocephalic and atraumatic. Neck: Supple without lymphadenopathy. Trachea midline. Right IJ cath with dressing clean dry and intact. Neurological: No focal deficits. - Labs CBC & Chem 7: 06/10/20 05:55 06/10/20 05:55 Labs: Abnormal Lab Results - Last 24 Hours (Table) 06/09/20 06/09/20 06/10/20 Range/Units 05:42 05:42 05:55 WBC 12.08 H 13.09 H (4.50-10.00) X 10*3/uL RBC 3.48 L 3.47 L (4.40-5.60) X 10*6/uL Hgb 11.1 L 11.3 L (13.0-17.0) g/dL Hct 34.3 L 34.6 L (39.6-50.0) % MCV 98.6 H 99.7 H (80.0-97.0) fL MCH 32.6 H (27.0-32.0) pg RDW 14.9 H 15.1 H (11.5-14.5) % D-Dimer (<0.60) mg/L FEU Anion Gap 15.40 H (4.00-12.00) mmol/L BUN 98.0 H (9.0-27.0) mg/dL Creatinine 5.0 H (0.6-1.5) mg/dL Est GFR (CKD-EPI)AfAm 12.2 L (60.0-200.0) Est GFR (CKD-EPI)NonAf 10.5 L (60.0-200.0) Glucose 154 H (70-110) mg/dL Calcium 8.6 L (8.7-10.3) mg/dL Magnesium 2.8 H (1.5-2.4) mg/dL Ferritin 5480.3 H (22.0-322.0) ng/mL Lactate Dehydrogenase 803 H (120-246) U/L C-Reactive Protein 5.1 H (0.0-0.8) mg/dL 06/10/20 Range/Units 05:55 WBC (4.50-10.00) X 10*3/uL RBC (4.40-5.60) X 10*6/uL Hgb (13.0-17.0) g/dL Hct (39.6-50.0) % MCV (80.0-97.0) fL MCH (27.0-32.0) pg RDW (11.5-14.5) % D-Dimer 17.18 H (<0.60) mg/L FEU Anion Gap (4.00-12.00) mmol/L BUN (9.0-27.0) mg/dL Creatinine (0.6-1.5) mg/dL Est GFR (CKD-EPI)AfAm (60.0-200.0) Est GFR (CKD-EPI)NonAf (60.0-200.0) Glucose (70-110) mg/dL Calcium (8.7-10.3) mg/dL Magnesium (1.5-2.4) mg/dL Ferritin (22.0-322.0) ng/mL Lactate Dehydrogenase (120-246) U/L C-Reactive Protein (0.0-0.8) mg/dL Assessment and Plan Assessment: 1. End-stage renal disease on hemodialysis with clotted left AV graft status p ost right IJ vein temporary hemodialysis catheter placement 2. Acute hypoxic respiratory failure secondary to COVID-19 pneumonia 3. Chronic atrial fibrillation on Eliquis 4. History of coronary artery disease 5. Hypertension Plan: 1. Continue symptomatic and supportive care 2. Continue recommendations by primary medicine team and pulmonology 3. Pending patient's clinical course, will reevaluate for possible thrombectomy of left AV graft Thank you for this consultation, we will be on stand by. The impression and plan of care has been dictated as directed. Dr. King I performed a history and examination of this patient, discussed the same with the dictator. I agree with the dictator's note ,documented as a scribe. Any additional findings or plans will be noted.
--- NOTE | 2020-06-10 14:08 | P.PN ---
Subjective Progress Note Date: 06/10/20 Hospital course: Patient is a 75-year-old male with a past medical history of CAD with previous PR resulting in stent placement, chronic diastolic heart failure with an EF of 50-55%, hypertension, hyperlipidemia, ESRD on dialysis Tuesdays//Saturdays (last dialysis treatment session 06/03/20), chronic bilateral lower extremity swelling, chronic back pain, recent diagnosis and hospitalization for bilateral lower extremity cellulitis currently taking cl indamycin 450 mg every 8 hours, and recent diagnosis of Covid 19 virus infection on 05/30/20. Patient had recent admission to the hospital from 05/30/20 through 06/03/20 for treatment of cellulitis of bilateral lower extremities feeling outpatient treatment and was subsequently diagnosed with Covid 19 virus infection in which patient at that time was asymptomatic of symptoms. Patient was discharged home on oral antibiotic clindamycin for treatment of his cellulitis, along with Decadron, melatonin, zinc, vitamin C, and vitamin D for diagnosis of Covid 19. Patient remained asymptomatic upon arrival home on 06/03/20, but both he and his family reports that shortly after awakening the morning of 06/04/20 he began having a frequent coarse cough and shortness of breath which progressively worsened throughout the day and was accompanied by episodes of hemoptysis. Family reports that they placed a pulse ox onto his finger and patient's SpO2 was in the 70s. Patient's son called EMS to transfer his father to the hospital. Upon arrival to the emergency department, patient was found to be in significant respiratory distress requiring oxygen supplementation of 8 L O2 via high flow nasal cannula maintaining SpO2 of 90%. A chest x-ray was completed and reported to have increased pulmonary edema consistent with ARDS vs heart failure. Patient was admitted under our services for acute respiratory failure with hypoxia secondary to Covid pneumonitis and acute on chronic exacerbation of diastolic CHF. Consults also placed to nephrology to continue dialysis, pulmonology secondary to hypoxia, cardiology for elevated troponin and CHF exacerbation and wound care secondary to bilateral lower extremity cellulitis. Patient currently on BiPAP with SpO2 > 90%. Physical exam: 06/10/20: Patient seen and fully evaluated at the bedside this morning. He was lying high Patel's in bed on BiPAP with SpO2 maintaining greater than 90%. Pt received dialysis yesterday and is scheduled to again receive hemodialysis later this afternoon. Patient's inflammatory markers increasing with d-dimer of 17.18, ferritin 4420.6, LDH 903, and CRP of 3.2. Patient already on therapeutic anticoagulation with Eliquis. Patient has continued to have episodes of significant anxiety, he is receiving PRN Ativan. Patient continues to deny having any chest pain or palpitations but does report feeling very short of breath and states that it is difficult for the mask. Sitter remains at bedside for patient safety and redirection as patient frequently attempts to pull at his tubes and remove BiPAP. General: non toxic,showing mild distress secondary to increased respiratory effort, chronically ill-appearing and appears at stated age Derm: warm, dry Head: atraumatic, normocephalic, symmetric Eyes: EOMI, no lid lag, anicteric sclera Mouth: no lip lesion, mucus membranes moist Cardiovascular: S1S2 reg, no murmur, positive posterior tibial pulses bilaterally. Temporary Dialysis catheter in right IJ, dressing intact. AV fistula left arm. Lungs: Respirations even, regular, and slightly labored with increased work of breathing on BiPAP with SpO2 of 95% at time of assessment. Coarse crackles at bilateral bases and diffuse rhonchi bilaterally. Abdominal: obese abdomen soft, nontender to palpation, no guarding, no appreciable organomegaly Ext: no gross muscle atrophy, no contractures. Patient with moderate 3+ pitting edema in bilateral lower extremities accompanied by significant erythema and dry skin. Neuro: GCS 15. CN II-XI grossly intact, no focal neuro deficits. Psych: Alert, oriented, appropriate affect Assessment and Plan of care: Acute respiratory failure with hypoxia secondary to Covid pneumonitis -Covid PCR positive on 05/30/20 -Patient was asymptomatic until 06/04/20 in which he developed sudden onset shortness of breath and cough resulting in respiratory distress. -A chest x-ray was completed and reported to have increased pulmonary edema consistent with ARDS vs heart failure. -Patient to be provided with oxygen supplementation as needed to maintain SpO2 equal to or greater than 90%. Currently on BiPAP maintaining SpO2 greater than 90%.. -Continue Decadron 6 mg daily. -Continue Zinc, vitamin D, vitamin C, and melatonin. -Remdesivir single dose given on 06/04/20, Actemra given on 06/05/20 -Pulmonology following, appreciate further recommendations. -Continue anticoagulation with Eliquis. Acute on Chronic diastolic heart failure -Pro-BMP 8250 -Echocardiogram completed 09/20/19 revealed a preserved EF of 50-55% with mild aortic valve sclerosis and mild pulmonary hypertension. -Repeat echocardiogram completed 06/05/20 revealed a decrease in EF showing mild to moderately impaired ejection fraction of 40-45%. -Cardiology following, appreciate further recommendations. -Continue Lasix 40 mg IVP 3 times a day. -Continued close monitoring of electrolyte function. -Close monitoring of I's and O's Hyponatremia secondary to fluid volume overload resulting from acute on chronic diastolic heart failure, resolved -Sodium 138 Bilateral lower extremity cellulitis, improved -Oral antibiotics completed, swelling now appears more consistent with chronic venous stasis. -Continue daily Dylan wraps -Symptomatic care and pain management, encourage elevation. End-stage renal disease on dialysis -Continue dialysis. -Nephrology following. -Will monitor renal function and electrolyte values closely with repeat a.m. labs. Chronic Paroxysmal atrial fibrillation on anticoagulation with Eliquis -Continue anticoagulation with Eliquis. -Continue Procardia 30 mg daily. Hypertension -Monitor vital signs and continue daily medication management. Hyperlipidemia -Continue daily medication management. -Renal diet. Elevated troponin secondary to ESRD, acute coronary event ruled out -Flat showing no elevation. 0.266, 0.247, 0.238. -Continue dialysis History of CAD with previous PR and stent placement -Continue daily medication management with Imdur, Lasix, atorvastatin, and Eliquis. CODE STATUS: DO NOT RESUSCITATE/DO NOT INTUBATE DVT prophylaxis: Eliquis Discussed with: Patient and RN, and patient's Mayra, son Asad, and daughter Ksenia. Anticipated discharge date: Clinical course to determine. Anticipated discharge place: Home with homecare A total of 45 minutes was spent on the care of this complex patient more than 50% of the time was spent in counseling and care coordination. Objective - Vital Signs Vital signs: Vital Signs Temp 97.4 F L 06/10/20 05:06 Pulse 73 06/10/20 05:06 Resp 38 H 06/10/20 05:06 BP 133/72 06/10/20 05:06 Pulse Ox 87 L 06/10/20 05:06 Intake & Output 06/09/20 06/10/20 06/10/20 18:59 06:59 18:59 Output Total 3250 Balance -3250 Output: Urine 250 Hemodialysis 3000 Other: Voiding Method Urinal Urinal - Labs CBC & Chem 7: 06/10/20 05:55 06/10/20 05:55 Labs: Abnormal Lab Results - Last 24 Hours (Table) 06/09/20 06/09/20 06/10/20 Range/Units 05:42 05:42 05:55 WBC 12.08 H (4.50-10.00) X 10*3/uL RBC 3.48 L (4.40-5.60) X 10*6/uL Hgb 11.1 L (13.0-17.0) g/dL Hct 34.3 L (39.6-50.0) % MCV 98.6 H (80.0-97.0) fL RDW 14.9 H (11.5-14.5) % D-Dimer 17.18 H (<0.60) mg/L FEU Anion Gap 15.40 H (4.00-12.00) mmol/L BUN 98.0 H (9.0-27.0) mg/dL Creatinine 5.0 H (0.6-1.5) mg/dL Est GFR (CKD-EPI)AfAm 12.2 L (60.0-200.0) Est GFR (CKD-EPI)NonAf 10.5 L (60.0-200.0) Glucose 154 H (70-110) mg/dL Calcium 8.6 L (8.7-10.3) mg/dL Magnesium 2.8 H (1.5-2.4) mg/dL Ferritin 5480.3 H (22.0-322.0) ng/mL Lactate Dehydrogenase 803 H (120-246) U/L C-Reactive Protein 5.1 H (0.0-0.8) mg/dL
--- NOTE | 2020-06-10 17:33 | P.PN ---
Subjective Progress Note Date: 06/10/20 Principal diagnosis: Acute hypoxic failure failure secondary to acute COVID-19 pneumonia 85-year-old male patient with has an incisional disease, came into the emergency department with worsening shortness of breath and pulse ox was found to be in the low 70s by EMS. Upon his arrival his pulse ox was 86%. Note that the patient was recently in the hospital for lower extremity cellulitis. At that time he was COVID-19 positive. He was not offered any treatment knowing that the patient was hospitalized and he was not a candidate for monoclonal antibodies. At that time, the patient was on room air oxygen and the patient was not having any hypoxemia. Within the past few days, the patient's condition decompensated and he developed COVID-19 related pneumonia. He is currently having a shortness of breath along with cough. The patient's chest x-ray showed significant changes with development of bilateral perihilar and lower lobe pulmonary infiltrates. Currently the patient is on oxygen on a BiPAP at a pressure of 14/6 with an FiO2 of 100%. His current pulse ox is 93%. His blood work is showing a lactic acid level of 1.6, troponins were positive at 0.23 respectively, creatinine was 3.9 with a mean of 71, d-dimer is at 0.8, rest of the inflammatory markers are still pending. Note that his proBNP level is 8250. His last hemodialysis was Comorbid conditions include CAD, previous AR, diastolic heart failure with an ejection fraction of 50-55%, hypertension, end-stage renal disease on hemodialysis 3 times a week, TTS in the left treatment was on 06/03/2020. He has chronic bilateral lower extremity edema, he also has chronic back pain and history of cellulitis of lower extremities treated with clindamycin 450 mg every 8 hours. His COVID-19 diagnosis was established on 05/30/2020. He had a recent hospitalization between 05/30/2020 and 06/03/2020. On 06/06/2020, the patient looks short of breath and quite miserable. Earlier this morning, he took his mask off which is on the percent on a beta facemask and he was trying to eat and he became hypoxic. At that point he was immediately placed on a BiPAP to recover his oxygenation at the pressure of 14/6. Currently is back to 100% on a beta facemask along with 15 L nasal cannula. His current pulse ox is around 98%. His LDH from today was so 8 with a CRP of 15.5. He underwent hemodialysis yesterday with ultrafiltration. Creatinine is down to 3.5 with a BUN of 60. Sodium is 133. Potassium level is at 4.4. He is currently sitting up on a recliner. He has limited reserve and he gets short of breath with limited amount of activity and talking and coughing. He does have a dry cough. Terms of treatment, we offer this patient Decadron 6 mg IV and he also received Tocilizumab 800 Iv x1 , the patient is also on Eliquis., Reevaluated today on 06/07/2020, patient is on BiPAP, FiO2 is at 50%, IPAP of 14 and EPAP of 6. Seems to be comfortable on BiPAP. Pulse oximetry is 93-95%. P atient is afebrile temp is 97. 4. He is hemodynamically stable. Labs today show slight leukocytosis WBC count of 11.39 hemoglobin is 10.5. His fibrinogen is 532 d-dimer is 3.26 coming up from 1.29 yesterday. Renal profile is getting worse with a BUN of 92 creatinine is 4.5. Ferritin is over 8000. LDH is 608. C-reactive protein is 11.2 . During my evaluation, patient was receiving hemodialysis, sitting at a bedside chair, in no distress on BiPAP. Chest x-ray clearly shows diffuse bilateral infiltrates left more so than right Patient was reevaluated today on 06/08/2020, remains on 15 L high flow and nonrebreather mask, O2 saturation is ranging between 86% up to 90%. Intermittently the patient has been on BiPAP. Patient remains afebrile, he is hemodynamically doing well, CBC is relatively normal. His electrolytes are normal. BUN is 76, creatinine is 4.1. LDH is 608. C-reactive protein is 7.6. Chest x-ray yesterday continued to show diffuse and worsening pulmonary infiltrates. Patient remains on hemodialysis. Patient was reevaluated today on 06/09/2020, remains on high flow cannula and intermittently on BiPAP, his O2 saturation is 93% on 15 L high flow cannula. Again at times the patient goes on BiPAP, and feels a bit better when on BiPAP. Remains afebrile, he is hemodynamically stable, WBC count is 12.08 hemoglobin is 11.1. Electrolytes are normal BUN is 98 creatinine is 5.0. LDH is 803 C- reactive protein is 5.1. Ferritin level is over 5000. Patient remains on hemodialysis. Underwent central venous catheter placement for dialysis today patient had thrombosed left upper extremity loop forearm graft. Hence required dialysis catheter placement today by vascular surgery. This was done in the internal jugular vein. Patient was reevaluated today on 06/10/2020, patient remains on BiPAP, and the percent FiO2, supposed to undergo hemodialysis today, patient seems to have extreme shortness of breath with any activity in bed. Although his O2 saturation is in the high 90s, ration was noted to desaturate as soon as related to flat. Again his chest x-ray is showing worsening of his interstitial infiltrates/edema, and I believe the patient would benefit significantly if hemodialyzed and ultrafiltration today. WBC count is 13,006 hemoglobin is 11.3. Normal electrolytes. BUN is 69 creatinine 4.0 LDH remains high 903, C-reactive protein is 3. Objective - Vital Signs Vital signs: Vital Signs Temp 98.2 F 06/10/20 14:00 Pulse 71 06/10/20 14:00 Resp 24 06/10/20 14:00 BP 156/82 06/10/20 14:00 Pulse Ox 100 06/10/20 14:00 Intake & Output 06/09/20 06/10/20 06/10/20 18:59 06:59 18:59 Output Total 3250 200 Balance -3250 -200 Weight 117.934 kg Output: Urine 250 200 Hemodialysis 3000 Other: Voiding Method Urinal Urinal Urinal - Exam GENERAL EXAM: Alert, very pleasant, 75-year-old white male, on BiPAP. 100% FiO2. HEAD: Normocephalic/atraumatic. EYES: Normal reaction of pupils, equal size. Conjunctiva pink, sclera white. A right internal jugular dialysis catheter is noted NOSE: Clear with pink turbinates. THROAT: No erythema or exudates. NECK: No masses, no JVD, no thyroid enlargement, no adenopathy. CHEST: No chest wall deformity. Symmetrical expansion. LUNGS: Crackles and rhonchi bilaterally at the bases. CVS: Regular rate and rhythm, normal S1 and S2, no gallops, no murmurs, no rubs ABDOMEN: Soft nontender no megaly no rebound no guarding EXTREMITIES: No clubbing, 2+ lower extremity edema and changes of chronic venous stasis in bilateral lower extremities, SKIN: No rashes CENTRAL NERVOUS SYSTEM: Patient seems to be quite sleepy today, not as responsive as he was yesterday - Labs CBC & Chem 7: 06/10/20 05:55 06/10/20 05:55 Labs: Abnormal Lab Results - Last 24 Hours (Table) 06/10/20 06/10/20 06/10/20 Range/Units 05:55 05:55 05:55 WBC 13.09 H (4.50-10.00) X 10*3/uL RBC 3.47 L (4.40-5.60) X 10*6/uL Hgb 11.3 L (13.0-17.0) g/dL Hct 34.6 L (39.6-50.0) % MCV 99.7 H (80.0-97.0) fL MCH 32.6 H (27.0-32.0) pg RDW 15.1 H (11.5-14.5) % D-Dimer 17.18 H (<0.60) mg/L FEU Anion Gap 14.30 H (4.00-12.00) mmol/L BUN 69.0 H (9.0-27.0) mg/dL Creatinine 4.0 H (0.6-1.5) mg/dL Est GFR (CKD-EPI)AfAm 16.0 L (60.0-200.0) Est GFR (CKD-EPI)NonAf 13.8 L (60.0-200.0) Glucose 162 H (70-110) mg/dL Calcium 8.6 L (8.7-10.3) mg/dL Ferritin 4420.6 H (22.0-322.0) ng/mL Lactate Dehydrogenase 903 H (120-246) U/L C-Reactive Protein 3.2 H (0.0-0.8) mg/dL Assessment and Plan Assessment: Impression: Acute hypoxic respiratory failure secondary to COVID-19 pneumonia Chronic lower extremity cellulitis. Negative DVT. Chronic atrial fibrillation, on Eliquis. History of coronary artery disease previous myocardial infarction. End stage renal disease on hemodialysis. A new right internal jugular catheter was placed today. Benign essential hypertension. Obesity with BMI of 37.7. Recommendation: Continue hemodialysis Continue high flow oxygen and alternate with BiPAP. Titrate accordingly. Continue Decadron. Patient received toci Continue to COVID-19 cocktail. Patient did not qualify for REM Continue Eliquis for his atrial fibrillation. Patient is DO NOT RESUSCITATE CODE STATUS. Will follow. Prognosis is guarded and critical Time with Patient: Less than 30
[2020-06-10] MEDS: FOLIC ACID 1 MG TAB PO SCH (17:37)
--- NOTE | 2020-06-10 17:42 | PN ---
PROGRESS NOTE Patient is seen for followup for end-stage renal disease. He also has underlying COVID pneumonia and fluid overload. Patient's AV graft had clotted yesterday and he did have an IJ catheter placed, since patient was not able to lie down for the procedure or have anesthesia. He was dialyzed yesterday. We had about 3 L of fluid removed with dialysis yesterday. Patient will be dialyzed again today. PHYSICAL EXAMINATION: He is currently maintained on BiPAP. He has been confused, has a sitter next to him. Blood pressure was 153/74, heart rate 68 per minute. He is afebrile. Examination shows chronic skin changes in lower extremities with decreased edema. Abdomen is morbidly obese. BASEBALL COACH exam not performed. Patient is currently sleeping. LABS: Hemoglobin of 11.3 g/dL, sodium 144, potassium 4.3. ASSESSMENT: 1. End-stage renal disease, on hemodialysis on a Sunday, , Sunday schedule. 2. Fluid overload, slowly improving. 3. COVID pneumonia. 4. Clotted AV graft with plans for declotting when patient is more stable. Currently with right IJ temporary dialysis catheter. 5. Chronic kidney disease mineral bone disorder. 6. Acute hypoxic respiratory failure, currently maintained on BiPAP. Etiology COVID pneumonia and an element of volume overload as well. PLAN: Hemodialysis today. We will hold dialysis tomorrow and then plan again for Sunday. MMODL / IJN: [id number] /
[2020-06-10] MEDS: MELATONIN 5 MG TABLET PO SCH (20:15)
[2020-06-10 23:30] VITALS: RESP 24
[2020-06-10] MEDS: DOXAZOSIN 2 MG TAB PO SCH (23:57)
[2020-06-11 00:54] VITALS: BP 154/81; PULSE 95; TEMP 97.9
[2020-06-11] MEDS: LORazepam 2 MG/ML INJ IV PRN (03:17)
[2020-06-11] MEDS ORDERED: FUROSEMIDE 10 MG/ML 10 ML VIAL IV STA (04:28)
[2020-06-11 04:44] LABS: ABG Base Excess -1.9 mmol/L; ABG HCO3 23 mmol/L (21-25); ABG Oxygen Saturation 53.9 % (94-97); ABG PCO2 38 mmHg (35-45); ABG PH 7.39 (7.35-7.45); ABG TCO2 24 mmol/L (19-24); Allen Test Performed? Yes
[2020-06-11] MEDS ORDERED: MORPHINE SULFATE 4 MG/ML SYRINGE IVP STA (04:45)
[2020-06-11 04:56] LABS: ABG PO2 32 mmHg (83-108)
[2020-06-11] MEDS ORDERED: DRY MOUTH SPRAY 44.3 SPRAY/44.3 ML SPRAY MUCOUS MEM PRN (05:03)
[2020-06-11] MEDS ORDERED: MORPHINE SULFATE 2 MG/ML SYRINGE IVP ONE (05:03)
[2020-06-11] MEDS ORDERED: ONDANSETRON 4 MG/2 ML VIAL IVP PRN (05:03)
[2020-06-11] MEDS ORDERED: ARTIFICIAL TEARS-HYPROMELLOSE DROPS 15 ML BTL BOTH EYES PRN (05:03)
[2020-06-11] MEDS ORDERED: ATROPINE OPHTH SOLN 1% 5ML BTL SUBLINGUAL PRN (05:03)
[2020-06-11] MEDS ORDERED: SCOPOLAMINE 1.5MG/72HR PATCH TRANSDERM SCH (05:15)
[2020-06-11] MEDS ORDERED: MORPHINE SULFATE (100 MG/2 ML) 100 MG in SODIUM CHLORIDE 0.9% 100 ML IV SCH (05:15)
--- NOTE | 2020-06-11 05:23 | XR ---
EXAM: XR Chest, 1 View CLINICAL HISTORY: ITS.REASON XR Reason: respiratory distress TECHNIQUE: Frontal view of the chest. COMPARISON: CXR 06/09/2020 FINDINGS/IMPRESSION: Dual lumen central venous catheter terminates in the SVC. Extensive airspace consolidations, consistent with severe multifocal infiltrates, which are increasing when compared to June 09, 2020. No pneumothorax. Suspect, small pleural effusions. Cardiomegaly. Calcified aorta.
--- NOTE | 2020-06-11 05:29 | P.PN ---
Progress Note - Text Progress Note Date: 06/11/20 Advanced Care Planning Active Diagnosis: COVID pneumonia Persons present: , Son Summary: Notified by the RN that the patient's condition had continued to worsen throughout the night. The patient was poorly tolerating BiPAP. ABG was ordered which revealed severe hypoxia. Discussed the case with the patient's and son over the phone. They both re-iterated that he wouldn't want to be kept alive with overly aggressive measures and that they are concerned about causing further harm. The family requested that he be made comfortable to ease his passing. The patient was subsequently placed on comfort care with morphine ordered. Answered questions for the family and provided support. Time spent: Total time spent face to face in education and discussion directly related to advanced care plannin minutes
--- NOTE | 2020-06-11 13:49 | P.DS ---
Providers Date of admission: 06/04/20 17:16 Expected date of discharge: 06/11/20 Attending physician: Opal Reddy MD Consults: 06/04/20 17:14 Consult Physician Urgent Consulting Provider: Hong Youngblood Consult Reason/Comments: acute hypoxic resp failure, acute covid infection Do you want consulting provider notified?: Yes Consult Physician Urgent Consulting Provider: Macie Rios Consult Reason/Comments: esrd on hd Do you want consulting provider notified?: Yes 06/04/20 18:19 Consult Physician Routine Consulting Provider: Franklin De León Consult Reason/Comments: Acute on chronic diastolic heart failure Do you want consulting provider notified?: Yes 06/08/20 17:33 Consult Physician Stat Consulting Provider: Jaylen Nichols Consult Reason/Comments: clotted AVG Do you want consulting provider notified?: Yes Primary care physician: Jerod Braun MD Hospital Course: Discharge Diagnosis: Acute exacerbation of Chronic diastolic and systolic heart failure with a moderately impaired ejection fraction of 40-45% Acute respiratory failure with hypoxia secondary to Covid pneumonitis Hyponatremia secondary to fluid volume overload resulting from acute on chronic diastolic heart failure, resolved Bilateral lower extremity cellulitis, improved End-stage renal disease on dialysis Chronic Paroxysmal atrial fibrillation on anticoagulation with Eliquis Hypertension Hyperlipidemia Elevated troponin secondary to ESRD, acute coronary event ruled out History of CAD with previous MD and stent placement Hospital Course: Patient was a 75-year-old male with a past medical history of CAD with previous MD resulting in stent placement, chronic diastolic heart failure with an EF of 50-55%, hypertension, hyperlipidemia, ESRD on dialysis Tuesdays//Saturdays (last dialysis treatment session 06/03/20), chronic bilateral lower extremity swelling, chronic back pain, recent diagnosis and hospitalization for bilateral lower extremity cellulitis currently taking clindamycin 450 mg every 8 hours, and recent diagnosis of Covid 19 virus infection on 05/30/20. Patient had recent admission to the hospital from 05/30/20 through 06/03/20 for treatment of cellulitis of bilateral lower extremities failing outpatient treatment and was subsequently diagnosed with Covid 19 virus infection in which patient at that time was asymptomatic of symptoms. Patient was discharged home on oral antibiotic clindamycin for treatment of his cellulitis, along with Decadron, melatonin, zinc, vitamin C, and vitamin D for diagnosis of Covid 19. Patient reportedly remained asymptomatic from COVID infection until the morning of 06/04/20 when he reportedly began having a frequent coarse cough and shortness of breath which progressively worsened throughout the day and was accompanied by episodes of hemoptysis. He was found by family to have a pulse ox in the 70s and patient's son called EMS for his fathers transfer to the hospital. Upon arrival to the emergency department, patient was found to be in significant respiratory distress initially requiring oxygen supplementation of 8 L O2 via high flow nasal cannula maintaining SpO2 of 90%. A chest x-ray was completed and reported to have increased pulmonary edema consistent with ARDS vs heart failure. Patient was admitted under our services for acute respiratory failure with hypoxia secondary to acute on chronic exacerbation of diastolic CHF and COVID 19 pneumonitis. Consults also placed to nephrology to continue dialysis, pulmonology secondary to hypoxia, cardiology for elevated troponin and CHF exacerbation as well as wound care secondary to bilateral lower extremity cellulitis. Patient's condition progressively worsened resulting in continued increased oxygenation needs. Dialysis was increased from 3 days weekly to daily secondary to concerns of fluid overload and need for diuresing and patient was treated with Lasix 3 times daily. Patient was on Decadron, zinc, vitamin D, vitamin C, and melatonin. He was given a single dose of Remdesivir on 06/04/20 and Actemra was given on 06/05/20. Patient had a repeat echocardiogram on 06/05/20 which revealed a decrease in his previous ejection fraction of 50-55% now revealing a mild to moderately impaired ejection fraction of 40-45%. Patient's condition showing no improvement despite aggressive treatment. Per patient, his and his children patient was a DO NOT RESUSCITATE/DO NOT INTUBATE. loss prevention consultant on 06/11/20, Dr. Brink was called to bedside secondary to worsening hypoxia. An ABG was obtained revealing significant Hypoxemia with pO2 of 32. Provider had discussion with patient's and son and per their wishes, patient was placed on comfort measures only and a short time later with his at bedside. Per documentation in chart, Time of was 5:22 AM on 06/11/20. A total of 35 minutes of time were spent preparing this complex discharge summary. Plan - Discharge Summary Discharge Rx Participant: Yes New Discharge Prescriptions: Discontinued Ranolazine [Ranexa] 1,000 mg PO BID@1000,2200 rOPINIRole HCL [Requip] 1 mg PO TID@0000,1000,1700 Nitroglycerin Sl Tabs [Nitrostat] 0.4 mg SL Q5M PRN PRN Reason: Chest Pain Folic Acid 1 mg PO DAILY@1700 Polyethylene Glycol 3350 [Miralax] 17 gm PO HS@0000 NIFEdipine XL [Procardia XL] 30 mg PO DAILY@1000 Terazosin [Hytrin] 8 mg PO HS@0000 LORazepam [Ativan] 1 mg PO BID@1000,2200 Furosemide [Lasix] 60 mg PO TID@0000,1000,1700 Gabapentin [Neurontin] 100 mg PO BID@1000,2200 Isosorbide Mononitrate ER [Imdur] 30 mg PO DAILY@1000 oxyCODONE HCL [Roxicodone] 10 mg PO HS@0000 oxyCODONE HCL [Roxicodone] 5 mg PO BID@1000,1700 Apixaban [Eliquis] 2.5 mg PO BID@1000,2200 Rosuvastatin [Crestor] 5 mg PO MOWEFR@1700 Triamcinolone 0.1% Cream [Kenalog 0.1% Cream] 1 applicatio TOPICAL BID 7 Days #1 tube Melatonin 5 mg PO HS 30 Days #30 tablet Nystatin 100,000Unit/gm Cream [Mycostatin Cream] 1 applic TOPICAL BID 7 Days #1 cream Ascorbic Acid [Vitamin C] 1,000 mg PO DAILY 30 Days #30 tablet Cholecalciferol [Vitamin D3 (25 Mcg = 1000 Iu)] 100 mcg PO DAILY 30 Days #30 tablet Clindamycin [Cleocin] 450 mg PO Q8H 5 Days #15 cap Dexamethasone [Decadron] 6 mg PO DAILY 7 Days #7 tablet Zinc Sulfate [Orazinc] 220 mg PO DAILY 30 Days #30 capsule Discharge Disposition: - Preliminary Cause of Preliminary Cause of : acute exacerbation of chronic systolic and diastolic heart failure
== END 2020-06-11 09:15 | disposition expired | DRG 177 ==
LOC: EC 15:49 → 4SSUR 17:16
PROVIDERS: ADMIT Internal Medicine; ATTEND Internal Medicine
PROC: XW033E5 Introduction of Remdesivir Anti-infective into Peripheral Vein, Percutaneous Approach, New Technology Group 5 (ICD-10-PCS; 2020-06-04)
PROC: XW033H5 Introduction of Tocilizumab into Peripheral Vein, Percutaneous Approach, New Technology Group 5 (ICD-10-PCS; principal; 2020-06-05)
PROC: 3E0333Z Introduction of Anti-inflammatory into Peripheral Vein, Percutaneous Approach (ICD-10-PCS; 2020-06-05)
PROC: 3E033XZ Introduction of Vasopressor into Peripheral Vein, Percutaneous Approach (ICD-10-PCS; 2020-06-05)
PROC: 02HV33Z Insertion of Infusion Device into Superior Vena Cava, Percutaneous Approach (ICD-10-PCS; 2020-06-09)
PROC: 5A1D70Z Performance of Urinary Filtration, Intermittent, Less than 6 Hours Per Day (ICD-10-PCS; 2020-06-09)
PROC: 5A09357 Assistance with Respiratory Ventilation, Less than 24 Consecutive Hours, Continuous Positive Airway Pressure (ICD-10-PCS; 2020-06-10)
DX: U07.1 COVID-19 (principal); J12.82 Pneumonia due to coronavirus disease 2019; N18.6 End stage renal disease; J80 Acute respiratory distress syndrome; G92 Toxic encephalopathy; I50.43 Acute on chronic combined systolic (congestive) and diastolic (congestive) heart failure; I13.2 Hypertensive heart and chronic kidney disease with heart failure and with stage 5 chronic kidney disease, or end stage renal disease; I48.19 Other persistent atrial fibrillation; R04.2 Hemoptysis; E87.1 Hypo-osmolality and hyponatremia; L03.115 Cellulitis of right lower limb; L03.116 Cellulitis of left lower limb; E87.2 Acidosis; I42.9 Cardiomyopathy, unspecified; T82.818A Embolism due to vascular prosthetic devices, implants and grafts, initial encounter; Z51.5 Encounter for palliative care; Z66 Do not resuscitate; I48.91 Unspecified atrial fibrillation; I27.20 Pulmonary hypertension, unspecified; Z99.2 Dependence on renal dialysis; D63.1 Anemia in chronic kidney disease; I25.10 Atherosclerotic heart disease of native coronary artery without angina pectoris; I35.8 Other nonrheumatic aortic valve disorders; M89.9 Disorder of bone, unspecified; E66.9 Obesity, unspecified; I89.0 Lymphedema, not elsewhere classified; E78.5 Hyperlipidemia, unspecified; H26.9 Unspecified cataract; G89.29 Other chronic pain; M54.9 Dorsalgia, unspecified; M19.90 Unspecified osteoarthritis, unspecified site; G25.81 Restless legs syndrome; M81.0 Age-related osteoporosis without current pathological fracture; F32.9 Major depressive disorder, single episode, unspecified; Z91.19 Patient's noncompliance with other medical treatment and regimen; Z68.37 Body mass index [BMI] 37.0-37.9, adult; I25.2 Old myocardial infarction; Z57.4 Occupational exposure to toxic agents in agriculture; Z95.5 Presence of coronary angioplasty implant and graft; Z98.890 Other specified postprocedural states; Z88.8 Allergy status to other drugs, medicaments and biological substances; Z79.01 Long term (current) use of anticoagulants; Z79.899 Other long term (current) drug therapy; Z87.440 Personal history of urinary (tract) infections; Z80.3 Family history of malignant neoplasm of breast; Z82.49 Family history of ischemic heart disease and other diseases of the circulatory system; Y83.2 Surgical operation with anastomosis, bypass or graft as the cause of abnormal reaction of the patient, or of later complication, without mention of misadventure at the time of the procedure; E87.8 Other disorders of electrolyte and fluid balance, not elsewhere classified
CPT/HCPCS: 36415; 36600; 71045; 80048; 80053; 82728; 82805; 83605; 83615; 83735; 83880; 84145; 84484; 85025; 85027; 85379; 85384; 85610; 85730; 86140; 90935; 93005; 93306; 94640; 94660; 94760; 99285